=== PATIENT | female | born 1945 | race Caucasian/White ===

== ENCOUNTER → 2017-09-11 | Outpatient (CLI) | payer MEDICARE, OTHER ==
--- NOTE | 2017-09-11 09:13 | CT ---
EXAMINATION TYPE: CT chest w con DATE OF EXAM: 09/11/2017 COMPARISON: Report scanned from demonstrating nonspecific mediastinal adenopathy. No images av ailable for comparison. HISTORY: Dyspnea CT DLP: 894.50 mGycm. Automated Exposure Control for Dose Reduction was Utilized. TECHNIQUE: CT scan of the thorax is performed following with IV Contrast, patient injected with 100 ml mL of Isovue 300. FINDINGS: LUNGS: There is a spiculated noncalcified left superhilar mass blending with the mediastinum in the l eft upper lobe measured on soft tissue windows series 3 image 20 at 3.0 x 2.3 cm. This and adjacent a denopathy encase the left upper lobe segmental and left lower lobe segmental pulmonary arteries. Ther e is slight tethering of the interlobar fissure with focal pleural thickening on series 4 image 15 me asuring 4 mm in thickness. There is a 2 mm noncalcified pulmonary nodule in a subpleural location in the right lower lobe on ser ies 4 image 36 posteriorly. Minimal right basilar subsegmental atelectasis is noted. Nonspecific mild pleural thickening is seen along the right upper lobe anterolaterally measuring 2 mm in thickness on series 4 image 29. There is no associated calcification. Minimal left basilar subsegmental dependent atelectasis is also present. No honeycombing to suggest pulmonary fibrosis. No interstitial intralob ular septal thickening. No pleural effusion or pneumothorax. MEDIASTINUM: Dense mitral annular calcifications are seen with post CABG changes of the chest. Main p ulmonary artery is enlarged measuring 3.5 cm. Ascending thoracic aorta is within normal limits measur ing 3.0 cm. No pericardial effusion. Cardiac size is upper limits of normal. Addition to the left perihilar adenopathy intimately associated with the pulmonary mass there is aort icopulmonary window adenopathy measuring 1.1 cm in short axis, right paratracheal adenopathy measurin g 1.1 cm in short axis, and subcarinal adenopathy measuring 1.1 cm in short axis as well. No discrete supraclavicular adenopathy. No right hilar adenopathy. OTHER: Cholelithiasis is incidentally noted. There is dense atheromatous calcifications of the visual ized abdominal aorta and its branches. A small hiatal hernia is noted. Visualized bowel in the upper abdomen is nondilated. Mild multilevel degenerative changes of the thoracic spine are seen. No suspic ious osseous lesions. IMPRESSION: 1. Left suprahilar spiculated 3.0 x 2.3 cm mass blending into the mediastinum that should be consider ed neoplasm until proven otherwise with associated mediastinal adenopathy. No discrete supraclavicula r adenopathy or pleural effusion. 2. Right-sided 2 mm pulmonary nodule, a very low suspicion for neoplasm. 3. No suspicious osseous lesions. A Yellow level critical message alert has been initiated for Bhanu Phillip MD via the [facility] Critical Results System on 09/11/2017 9:10 AM. This message alert has been sent to Bhanu tellez MD via the preferences provided by the clinician for the receipt of Radiology Critical Findings. Message ID [id number].
== END | disposition home or self-care (01) ==
LOC: RADCTMAIN 07:19
PROVIDERS: ATTEND Internal Medicine Critical Care Medicine
DX: R91.1 Solitary pulmonary nodule (principal); J98.59 Other diseases of mediastinum, not elsewhere classified
CPT/HCPCS: 82565; 84520; 71260; 36415; Q9967

== ENCOUNTER 2017-10-05 09:30 | Day surgery (SDC) | payer MEDICARE ==
[2017-10-04 09:44] VITALS: BMI 42.9
[~2017-10-05 09:30] MED LIST: LACTATED RINGERS 1,000 ML IV SCH; Pre Op ABX Message 1 EACH MISC MISCELLANE ONE
[2017-10-05 10:04] VITALS: TEMP 97.8
[2017-10-05] MEDS ORDERED: LIDOCAINE 1% INJ 10MG/ML (20 ML MDV) ONE (11:02)
[2017-10-05] MEDS ORDERED: MIDAZOLAM 2 MG/2 ML VIAL ONE (11:02)
[2017-10-05] MEDS ORDERED: GLYCOPYRROLATE 0.2 MG/ML 2 ML VIAL ONE (11:02)
[2017-10-05] MEDS ORDERED: KETAMINE 10 MG/ML 20 ML VIAL ONE (11:02)
[2017-10-05] MEDS ORDERED: PROPOFOL 10 MG/ML 20 ML VIAL IV ONE (11:02)
[2017-10-05] MEDS ORDERED: LIDOCAINE 2% INJ 20 MG/ML INTRATRACH ONE (11:53)
--- NOTE | 2017-10-05 12:02 | P.PCN ---
Date of Procedure: 10/05/17 Preoperative Diagnosis: left upper lobe/hilar mass Postoperative Diagnosis: left upper lobe/ hilar mass Procedure(s) Performed: flexible bronchoscopy, TBNA of the right paratracheal LN, EBBX and brushing and BAL of the YADIEL Surgeon: Bhanu Phillip Suture Polisher #1: Magdalena Evans Estimated Blood Loss (ml): 100 Pathology: other Condition: stable Disposition: same day Operative Findings: This procedure was done under conscious sedation with anesthetic agents being administered by anesthesia the bedside. Patient was given a total of 170 mg of propofol. After achieving adequate sedation, the flexible bronchoscope was inserted to the right nostril and was advanced upper airway. Examination of the posterior oropharynx, larynx, epiglottis and vocal cords was done and all of the upper airway structures were within normal limits without any abnormalities noted. The epiglottis, vallecula, arytenoids and the vocal cords were all within normal limits. A total of 2 mL of 1% lidocaine was applied to the vocal cords and following in the flexible bronchoscope was advanced upper trachea and examination of the tracheal bronchial tree was done. There was moderate degree of tracheal bronchomalacia throughout the airway. The trachea was patent and aileen was sharp in the midline. Examination of the right side including the right mainstem bronchus, right upper lobe bronchus, right middle lobe and right lower lobe bronchus was within normal limits. Examination of the left occluded left mainstem bronchus was patent and within normal limits. Left lower lobe bronchus was patent. Left upper lobe orifice was identified. The lingular segment was patent and the left upper lobe segment was completely compressed with possibly some endobronchial involvement with malignancy. My visualization was extremely poor knowing that the patient had some blood oozing from the surface of the left upper lobe bronchitis that was triggered by the flexible bronchoscope while inspecting the left upper lobe. I was barely able to do transbronchial needle aspirate of the right paratracheal lymph node with a use in 19 gait cytology didn't and 2 passes were obtained. Following that the bronchoscope to the left upper lobe bronchus. I was unable to visualize segment accurately. I did endobronchial biopsies of the left upper lobe. I did also the endobronchial brushings and bronchial lavage of the left upper lobe was done were a total of 80 mL of fluid was infused and 25 severe blood gases was obtained. Unfortunately, I did not have a good look during the procedure. I suspected that is in the endobronchial component/tumor occupying an obstructing the apical segment of the left upper lobe. I was able to suction the bloody secretions from the airway and admitted of the procedure bleeding was stopped. I do not do any further manipulation due to concerns of ongoing bleed. Estimated blood loss is around 100 mL. The patient tolerated the procedure well. No hypoxemia during the procedure. The patient will monitor them recovered and the patient was discharged home once cleared by anesthesia. Mother the patient was on Plavix preoperatively and this was stopped at least 5 days prior to procedure. Nevertheless, this was quite a complicated procedure due to the ongoing bleeding was encountered from the left upper lobe.
[2017-10-05 12:08] VITALS: RESP 16
[2017-10-05 13:11] VITALS: BP 123/67
[2017-10-05 13:25] VITALS: PULSE 56
== END 2017-10-05 13:45 | disposition home or self-care (01) ==
LOC: ORWHC2ENDO 09:30
PROVIDERS: ATTEND Internal Medicine Critical Care Medicine
DX: C34.12 Malignant neoplasm of upper lobe, left bronchus or lung (principal); J39.8 Other specified diseases of upper respiratory tract; J98.09 Other diseases of bronchus, not elsewhere classified; J44.9 Chronic obstructive pulmonary disease, unspecified; E66.9 Obesity, unspecified; Z68.41 Body mass index [BMI] 40.0-44.9, adult; I10 Essential (primary) hypertension; E03.9 Hypothyroidism, unspecified; I25.10 Atherosclerotic heart disease of native coronary artery without angina pectoris; E55.9 Vitamin D deficiency, unspecified; E78.5 Hyperlipidemia, unspecified; M19.90 Unspecified osteoarthritis, unspecified site; I25.2 Old myocardial infarction; Z95.1 Presence of aortocoronary bypass graft; Z95.5 Presence of coronary angioplasty implant and graft; Z79.02 Long term (current) use of antithrombotics/antiplatelets; Z79.82 Long term (current) use of aspirin; Z79.890 Hormone replacement therapy; Z79.51 Long term (current) use of inhaled steroids; Z79.899 Other long term (current) drug therapy; Z88.0 Allergy status to penicillin; Z87.891 Personal history of nicotine dependence
CPT/HCPCS: 88104; 88108; 88305; 88173; 88313; 88342; 88341; 31629; 31625; 31623; 31624; J2001 ×2; J2250; J2704; 31633

== ENCOUNTER → 2017-10-30 | Outpatient (CLI) | payer MEDICARE | END | disposition home or self-care (01) | LOC: LABWHC1 12:23 | PROVIDERS: ATTEND Radiology Radiation Oncology | DX: C34.12 Malignant neoplasm of upper lobe, left bronchus or lung (principal) | CPT/HCPCS: 36415; 82565 ==

== ENCOUNTER → 2017-10-31 | Outpatient (CLI) | payer MEDICARE ==
--- NOTE | 2017-10-31 11:21 | MR ---
EXAMINATION TYPE: MR brain wo/w con DATE OF EXAM: 10/31/2017 COMPARISON: NONE HISTORY: Lung cancer, mets TECHNIQUE: Multiplanar, multisequence images of the brain and brainstem is performed without and with IV contras t, utilizing 11.5 mL intravenous Gadavist . FINDINGS: Diffusion weighted images demonstrate no evidence of a recent infarct or other diffusion ab normality. There is no extra-axial fluid collection. There are confluent and scattered hyperintensi ties within the periventricular, subcortical, and deep white matter on inversion recovery and T2-weig hted sequences. The ventricular system and cisternal spaces are normal in size and appearance. The b rain volume is age appropriate. Foci of increased signal on inversion recovery, postcontrast images in the right frontal calvarium sh ows intermediate to high signal on T2-weighted sequences, axial image 19 and also at the convexity on the right. Midline structures demonstrate normal morphology. The craniocervical junction appears within normal limits. Post contrast images demonstrate no abnormal enhancement. The dural venous sinuses appear pa tent. The visualized sinuses are clear and the globes are intact. Minimal inflammatory change noted i n the left mastoid air cells. IMPRESSION: Nonspecific white matter demyelination may be related to chronic small vessel ischemia. A ge-related atrophy. Indeterminate focus of hyperintensity in the right frontal calvarium may represen t a small hemangioma, consider bone scan as indicated.
== END | disposition home or self-care (01) ==
LOC: RADMRIMAIN 08:23
PROVIDERS: ATTEND Radiology Radiation Oncology
DX: C34.12 Malignant neoplasm of upper lobe, left bronchus or lung (principal); G37.9 Demyelinating disease of central nervous system, unspecified; G31.9 Degenerative disease of nervous system, unspecified
CPT/HCPCS: 70553; A9581

== ENCOUNTER → 2017-11-04 | Outpatient (CLI) | payer MEDICARE ==
--- NOTE | 2017-11-05 12:22 | PE ---
Nuclear medicine PET/CT HISTORY: Lung carcinoma, initial 12.2 mCi F-18 FDG was given to the patient intravenously in delayed scanning was performed from the s kull base to the mid thighs. Localization and attenuation correction CT scan was also performed. Correlation to chest CT 09/11/2017. FINDINGS: Neck and chest: There is no abnormalities seen within the neck. Patient is post median ster notomy. Aortic calcifications, coronary artery calcifications as well as probable mitral annular calc ifications are noted incidentally. There is probable hiatal hernia. Defibrillator leads are present a nd noted incidentally. There are shotty nodes within the mediastinum, borderline enlarged node present within the retrocaval pretracheal mediastinum without significant uptake, aorticopulmonary window node is enlarged. There is a left hilar mass present measuring approximately 3.9 cm, there is associated hypermetabolic uptak e present, SUV 9.1. Abdomen pelvis: No suspicious adrenal mass or hypermetabolic uptake. No evident liver mass. No retrop eritoneal adenopathy. Osseous structures are unremarkable, no associated hypermetabolic uptake. IMPRESSION: Hypermetabolic uptake correlating to patient's left upper lobe lung mass, mediastinal nod es as described.
== END | disposition home or self-care (01) ==
LOC: RADPETMAIN 07:58
PROVIDERS: ATTEND Internal Medicine Hematology & Oncology
DX: C34.90 Malignant neoplasm of unspecified part of unspecified bronchus or lung (principal)
CPT/HCPCS: 78815; A9552

== ENCOUNTER → 2018-01-27 | Outpatient (CLI) | payer MEDICARE ==
--- NOTE | 2018-01-29 07:12 | PE ---
EXAMINATION TYPE: PET CT fusion skull to thigh DATE OF EXAM: 01/27/2018 COMPARISON: Prior PET/CT November 04, [address] September 11, 2017. HISTORY: Left-sided lung cancer progress study after completing chemotherapy January 01 and completing radiation treatment January 03. TECHNIQUE: Following the intravenous administration of 12.33 mCi of F-18 FDG, whole body images are performed from the skull base to the midthigh. Images are reviewed on the computer in the coronal, a xial, and sagittal planes. Reconstructed rotating images are created on independent workstation and reviewed on the computer. A noncontrast CT is performed in conjunction with the PET scan. SCAN: Subsequent Scan FINDINGS: SKULL BASE AND NECK: No suspicious new hypermetabolic uptake is present. CHEST, MEDIASTINUM, AND HILAR REGION: There is slight interval improvement in left suprahilar hyperme tabolic focus both in size and degree of abnormal hypermetabolic uptake, it is difficult to accuratel y measure due to volume averaging from adjacent left pulmonary artery which it abuts, it measures rou ghly 12 x 11 mm current study, max SUV is 5.43 on axial image 84. Max SUV noted 9.1 on prior report. No new areas of abnormal hypermetabolic uptake are present. ABDOMEN AND PELVIS: No new areas of suspicious hypermetabolic uptake is present. No suspicious adrena l masses noted. OSSEOUS STRUCTURES: No new areas of suspicious hypermetabolic uptake are seen. OTHER CT: Moderate to severe right carotid bulb calcified plaque is present. There is mild left-sided carotid calcified plaque. Post CABG changes with mediastinal clips and sternal wires is redemonstrated. Cardiomegaly is again s een. Mitral annular calcifications are redemonstrated. Calcified subserosal fibroid is present axial image 212. There is moderate to severe calcified plaque of the abdominal aorta extending into branch vessels. Sigmoid colonic diverticulosis is present. There is slight grade 1 anterolisthesis of L4 on L5. Multilevel facet arthropathy in the lower lumbar spine. There is vacuum disc phenomenon and disc space narrowing in the mid lumbar spine. Spine is st raightened with multilevel spurring. IMPRESSION: Positive treatment response with diminished size and abnormal hypermetabolic uptake in th e left suprahilar nodule abutting the mediastinum. No new areas of abnormal hypermetabolic uptake are present. EORTC response criteria: Partial Metabolic Response. Decrease in MaxSUV = 25% Primary tumor response WHO category: NM - At least 30% decrease in longest recordable dimension of tu mor
== END | disposition home or self-care (01) ==
LOC: RADPETMAIN 07:57
PROVIDERS: ATTEND Internal Medicine Hematology & Oncology
DX: C34.12 Malignant neoplasm of upper lobe, left bronchus or lung (principal)
CPT/HCPCS: 78815; A9552

== ENCOUNTER 2018-03-22 07:27 | Inpatient (IN) | payer MEDICARE ==
[2018-03-22] MEDS ORDERED: SODIUM CHLORIDE 0.9% 1,000 ML IV STA ×3 (07:35→09:07)
[2018-03-22] MEDS ORDERED: IPRATROPIUM-ALBUTEROL 3 ML NEB INHALATION STA (07:35)
--- NOTE | 2018-03-22 07:48 | ED ---
Weakness HPI - General Stated complaint: WEAKNESS, Ca PATIENT Time Seen by Provider: 03/22/18 07:35 Source: patient, family, EMS, RN notes reviewed Mode of arrival: EMS - History of Present Illness Initial comments: This is a 72-year-old female with a history of non-small cell lung cancer a former smoker who has gotten chemo and radiation with the last round being in December of this year and who now gets immunotherapy for which she was actually due today who was brought in by EMS because of progressive generalized weakness dizziness she also states she's thirsty all the time. She was found by EMS have a glucose of 49 though she is not diabetic. She was noted have some PACs and PVCs on the monitor. She has a nausea vomiting she does complain of shortness of breath and cough with brown colored phlegm. MD Complaint: generalized weakness - Related Data Home Medications Medication Instructions Recorded Confirmed Aspirin 81 mg PO DAILY 10/04/17 03/22/18 Clopidogrel Bisulfate [Plavix] 75 mg PO DAILY 10/04/17 03/22/18 Furosemide [Lasix] 20 mg PO DAILY PRN 10/04/17 03/22/18 Levothyroxine Sodium [Synthroid] 175 mcg PO DAILY 10/04/17 03/22/18 Losartan [Cozaar] 50 mg PO DAILY 10/04/17 03/22/18 Metoprolol Tartrate 25 mg PO BID 10/04/17 03/22/18 Allergies Allergy/AdvReac Type Severity Reaction Status Date / Time Penicillins Allergy Rash/Hives Verified 03/22/18 07:57 Review of Systems ROS Statement: Those systems with pertinent positive or pertinent negative responses have been documented in the HPI. ROS Other: All systems not noted in ROS Statement are negative. Past Medical History Past Medical History: Coronary Artery Disease (CAD), Hyperlipidemia, Hypertension, Myocardial Infarction (non Q-wave), Osteoarthritis (OA), Thyroid Disorder Additional Past Medical History / Comment(s): CHILDHOOD ASTHMA Last Myocardial Infarction Date:: 2005 History of Any Multi-Drug Resistant Organisms: None Reported Past Surgical History: Coronary Bypass/CABG, Heart Catheterization, Heart Catheterization With Stent Additional Past Surgical History / Comment(s): ENDARTERECTOMY-LEFT SIDE Past Anesthesia/Blood Transfusion Reactions: Motion Sickness Date of Last Stent Placement:: 2005 Smoking Status: Former smoker - Past Family History Father Family Medical History: Cancer General Exam - General Exam Comments Initial Comments: This is a well-developed well-nourished awake alert oriented 3 female Limitations: no limitations General appearance: alert, lethargic (Slightly lethargic) Head exam: Present: atraumatic, normocephalic, other (She demonstrates alopecia) Eye exam: Present: normal appearance, PERRL, EOMI. Absent: scleral icterus, conjunctival injection, periorbital swelling ENT exam: Present: mucous membranes dry Neck exam: Present: normal inspection. Absent: tenderness, meningismus, lymphadenopathy Respiratory exam: Present: decreased breath sounds Cardiovascular Exam: Present: normal rhythm, tachycardia GI/Abdominal exam: Present: soft, normal bowel sounds. Absent: distended, tenderness, guarding, rebound, rigid Extremities exam: Present: normal inspection, full ROM, normal capillary refill. Absent: tenderness, pedal edema, joint swelling, calf tenderness Back exam: Present: normal inspection Neurological exam: Present: alert, oriented X3, CN II-XII intact Psychiatric exam: Present: normal affect, normal mood Skin exam: Present: warm, dry, intact, normal color. Absent: rash Course Vital Signs 03/22/18 03/22/18 03/22/18 08:12 08:18 08:22 Temperature 97.8 F Pulse Rate 125 H 101 H 123 H Respiratory 22 Rate Blood Pressure 114/65 O2 Sat by Pulse 99 Oximetry - Reevaluation(s) Reevaluation #1: 03/22/18 10:16 Reevaluation patient reveals no change he still tachycardic it appears be A. fib RVR. Markedly elevated blood sugar. Dehydration she saw her remains awake alert though somewhat lethargic. Reevaluation #2: 03/22/18 10:17 Review of old EKG reveals the A. fib is new an EKG dated 08/13/10 showed a normal sinus rhythm with a rate of 77 appear of 01 78 QRS duration 90 QT since QTC 46/ 459 LVH was noted Reevaluation #3: 03/22/18 10:22 I did discuss findings with the patient and family members. Additionally I did discuss case with cardiology and pulmonary medicine. Oncology will be consulted. EKG Findings - EKG Results: EKG: interpreted by ERMD (Neutrophils rate 120 Ventricular response LVH nonspecific ST configuration QRS 108 QT since QTC 362/511) Medical Decision Making - Medical Decision Making Patient was evaluated by cardiology in the emergency department did discuss case with the admitting physician additionally the patient will be admitted to ICU. Dr. Phillip is consulted. - Lab Data Result diagrams: 03/22/18 08:10 03/22/18 08:10 Lab Results 03/22/18 03/22/18 03/22/18 Range/Units 08:10 08:10 08:10 WBC 11.7 H (3.8-10.6) k/uL RBC 5.12 (3.80-5.40) m/uL Hgb 16.7 H (11.4-16.0) gm/dL Hct 56.3 H (34.0-46.0) % MCV 110.0 H (80.0-100.0) fL MCH 32.6 (25.0-35.0) pg MCHC 29.7 L (31.0-37.0) g/dL RDW 13.1 (11.5-15.5) % Plt Count 187 (150-450) k/uL Neutrophils % 85 % Lymphocytes % 9 % Monocytes % 4 % Eosinophils % 1 % Basophils % 1 % Neutrophils # 10.0 H (1.3-7.7) k/uL Lymphocytes # 1.0 (1.0-4.8) k/uL Monocytes # 0.4 (0-1.0) k/uL Eosinophils # 0.1 (0-0.7) k/uL Basophils # 0.1 (0-0.2) k/uL Manual Slide Review Performed Toxic Granulation Present Hypochromasia Marked Macrocytosis Marked PT (9.0-12.0) sec INR (<1.2) APTT (22.0-30.0) sec D-Dimer (<0.60) mg/L FEU Sodium 141 (137-145) mmol/L Potassium 5.2 H (3.5-5.1) mmol/L Chloride 103 (98-107) mmol/L Carbon Dioxide <5 L* (22-30) mmol/L Anion Gap mmol/L BUN 35 H (7-17) mg/dL Creatinine 1.97 H (0.52-1.04) mg/dL Est GFR (CKD-EPI)AfAm 29 (>60 ml/min/1.73 sqM) Est GFR (CKD-EPI)NonAf 25 (>60 ml/min/1.73 sqM) Glucose 851 H* (74-99) mg/dL POC Glucose (mg/dL) (75-99) mg/dL POC Glu Air Drier ID Calcium 11.0 H (8.4-10.2) mg/dL Magnesium 2.3 (1.6-2.3) mg/dL Total Bilirubin 1.0 (0.2-1.3) mg/dL AST 24 (14-36) U/L ALT 13 (9-52) U/L Alkaline Phosphatase 94 (38-126) U/L Total Creatine Kinase 61 (30-135) U/L CK-MB (CK-2) 3.5 H (0.0-2.4) ng/mL CK-MB (CK-2) Rel Index 5.7 Troponin I 0.246 H* (0.000-0.034) ng/mL NT-Pro-B Natriuret Pep pg/mL Total Protein 7.6 (6.3-8.2) g/dL Albumin 4.4 (3.5-5.0) g/dL Urine Color Urine Appearance (Clear) Urine pH (5.0-8.0) Ur Specific [place] (1.001-1.035) Urine Protein (Negative) Urine Glucose (UA) (Negative) Urine Ketones (Negative) Urine Blood (Negative) Urine Nitrite (Negative) Urine Bilirubin (Negative) Urine Urobilinogen (<2.0) mg/dL Ur Leukocyte Esterase (Negative) Urine RBC (0-5) /hpf Urine WBC (0-5) /hpf Ur Squamous Epith Cells (0-4) /hpf Amorphous Sediment (None) /hpf Urine Mucus (None) /hpf Acetone, Qual (Negative) 03/22/18 03/22/18 03/22/18 Range/Units 08:10 08:10 08:10 WBC (3.8-10.6) k/uL RBC (3.80-5.40) m/uL Hgb (11.4-16.0) gm/dL Hct (34.0-46.0) % MCV (80.0-100.0) fL MCH (25.0-35.0) pg MCHC (31.0-37.0) g/dL RDW (11.5-15.5) % Plt Count (150-450) k/uL Neutrophils % % Lymphocytes % % Monocytes % % Eosinophils % % Basophils % % Neutrophils # (1.3-7.7) k/uL Lymphocytes # (1.0-4.8) k/uL Monocytes # (0-1.0) k/uL Eosinophils # (0-0.7) k/uL Basophils # (0-0.2) k/uL Manual Slide Review Toxic Granulation Hypochromasia Macrocytosis PT 10.7 (9.0-12.0) sec INR 1.1 (<1.2) APTT 24.4 (22.0-30.0) sec D-Dimer (<0.60) mg/L FEU Sodium (137-145) mmol/L Potassium (3.5-5.1) mmol/L Chloride (98-107) mmol/L Carbon Dioxide (22-30) mmol/L Anion Gap mmol/L BUN (7-17) mg/dL Creatinine (0.52-1.04) mg/dL Est GFR (CKD-EPI)AfAm (>60 ml/min/1.73 sqM) Est GFR (CKD-EPI)NonAf (>60 ml/min/1.73 sqM) Glucose (74-99) mg/dL POC Glucose (mg/dL) (75-99) mg/dL POC Glu Air Drier ID Calcium (8.4-10.2) mg/dL Magnesium (1.6-2.3) mg/dL Total Bilirubin (0.2-1.3) mg/dL AST (14-36) U/L ALT (9-52) U/L Alkaline Phosphatase (38-126) U/L Total Creatine Kinase (30-135) U/L CK-MB (CK-2) (0.0-2.4) ng/mL CK-MB (CK-2) Rel Index Troponin I (0.000-0.034) ng/mL NT-Pro-B Natriuret Pep 3720 pg/mL Total Protein (6.3-8.2) g/dL Albumin (3.5-5.0) g/dL Urine Color Yellow Urine Appearance Turbid H (Clear) Urine pH 5.5 (5.0-8.0) Ur Specific [place] 1.012 (1.001-1.035) Urine Protein 2+ H (Negative) Urine Glucose (UA) 4+ H (Negative) Urine Ketones 2+ H (Negative) Urine Blood Moderate H (Negative) Urine Nitrite Negative (Negative) Urine Bilirubin Negative (Negative) Urine Urobilinogen <2.0 (<2.0) mg/dL Ur Leukocyte Esterase Negative (Negative) Urine RBC 4 (0-5) /hpf Urine WBC 3 (0-5) /hpf Ur Squamous Epith Cells 10 H (0-4) /hpf Amorphous Sediment Few H (None) /hpf Urine Mucus Occasional H (None) /hpf Acetone, Qual (Negative) 03/22/18 03/22/18 03/22/18 Range/Units 08:10 08:10 08:54 WBC (3.8-10.6) k/uL RBC (3.80-5.40) m/uL Hgb (11.4-16.0) gm/dL Hct (34.0-46.0) % MCV (80.0-100.0) fL MCH (25.0-35.0) pg MCHC (31.0-37.0) g/dL RDW (11.5-15.5) % Plt Count (150-450) k/uL Neutrophils % % Lymphocytes % % Monocytes % % Eosinophils % % Basophils % % Neutrophils # (1.3-7.7) k/uL Lymphocytes # (1.0-4.8) k/uL Monocytes # (0-1.0) k/uL Eosinophils # (0-0.7) k/uL Basophils # (0-0.2) k/uL Manual Slide Review Toxic Granulation Hypochromasia Macrocytosis PT (9.0-12.0) sec INR (<1.2) APTT (22.0-30.0) sec D-Dimer 7.40 H (<0.60) mg/L FEU Sodium (137-145) mmol/L Potassium (3.5-5.1) mmol/L Chloride (98-107) mmol/L Carbon Dioxide (22-30) mmol/L Anion Gap mmol/L BUN (7-17) mg/dL Creatinine (0.52-1.04) mg/dL Est GFR (CKD-EPI)AfAm (>60 ml/min/1.73 sqM) Est GFR (CKD-EPI)NonAf (>60 ml/min/1.73 sqM) Glucose (74-99) mg/dL POC Glucose (mg/dL) >600 H (75-99) mg/dL POC Glu Air Drier Emilia Toure Calcium (8.4-10.2) mg/dL Magnesium (1.6-2.3) mg/dL Total Bilirubin (0.2-1.3) mg/dL AST (14-36) U/L ALT (9-52) U/L Alkaline Phosphatase (38-126) U/L Total Creatine Kinase (30-135) U/L CK-MB (CK-2) (0.0-2.4) ng/mL CK-MB (CK-2) Rel Index Troponin I (0.000-0.034) ng/mL NT-Pro-B Natriuret Pep pg/mL Total Protein (6.3-8.2) g/dL Albumin (3.5-5.0) g/dL Urine Color Urine Appearance (Clear) Urine pH (5.0-8.0) Ur Specific [place] (1.001-1.035) Urine Protein (Negative) Urine Glucose (UA) (Negative) Urine Ketones (Negative) Urine Blood (Negative) Urine Nitrite (Negative) Urine Bilirubin (Negative) Urine Urobilinogen (<2.0) mg/dL Ur Leukocyte Esterase (Negative) Urine RBC (0-5) /hpf Urine WBC (0-5) /hpf Ur Squamous Epith Cells (0-4) /hpf Amorphous Sediment (None) /hpf Urine Mucus (None) /hpf Acetone, Qual Positive (Negative) - Radiology Data Radiology results: report reviewed (EKG was reviewed that show evidence of pulmonary vascular congestion no overt failure noted), image reviewed Critical Care Time Critical Care Time: Yes Critical Care Time: 45 minutes of critical care time which includes initial presentation and discussed with paramedics upon arrival as well as family members history physical labs x-rays multiple reevaluation of the patient as well as to responsive therapy. Discussion with the admitting physician cardiology and with pulmonary medicine. Documentation the above review of old charting was available. They. Dilation. Initial orders documentation again of everything. Disposition Clinical Impression: DKA (diabetic ketoacidoses), Rapid atrial fibrillation, Renal insufficiency syndrome, Lung cancer, CHF (congestive heart failure), Elevated troponin, Elevated d-dimer Disposition: ADMITTED IP TO THIS HOSP Condition: Serious Referrals: Rosemary Bagley MD [Primary Care Provider] - 1-2 days
[2018-03-22 08:25] LABS: Basophils # (A) 0.1 k/uL (0-0.2); Basophils % (A) 1 %; Eosinophils # (A) 0.1 k/uL (0-0.7); Eosinophils % (A) 1 %; HGB 16.7 gm/dL (11.4-16.0); Hypochromasia Marked; Lymphocytes % (A) 9 %; MCH 32.6 pg (25.0-35.0); MCHC 29.7 g/dL (31.0-37.0); Macrocytosis Marked; Mean Platelet Volume 9.3; Monocytes # (A) 0.4 k/uL (0-1.0); Monocytes % (A) 4 %; Neutrophils % (A) 85 %; Platelet Count 187 k/uL (150-450); RBC 5.12 m/uL (3.80-5.40); RDW 13.1 % (11.5-15.5); WBC 11.7 k/uL (3.8-10.6)
[2018-03-22 08:38] LABS: ALT 13 U/L (9-52); AST 24 U/L (14-36); Albumin 4.4 g/dL (3.5-5.0); Alkaline Phosphatase 94 U/L (38-126); Blood Urea Nitrogen 35 mg/dL (7-17); Chloride 103 mmol/L (98-107); Magnesium 2.3 mg/dL (1.6-2.3); Potassium 5.2 mmol/L (3.5-5.1); Sodium 141 mmol/L (137-145); Total Protein 7.6 g/dL (6.3-8.2)
[2018-03-22 08:39] LABS: INR 1.1 (<1.2); Partial Thromboplastin Time 24.4 sec (22.0-30.0); Prothrombin Time 10.7 sec (9.0-12.0)
[2018-03-22 08:42] LABS: HCT 56.3 % (34.0-46.0)
[2018-03-22 08:47] LABS: Appearance,Urine Turbid (Clear); Color,Urine Yellow; PH, Urine 5.5 (5.0-8.0); Protein,Urine 2+ (Negative); Specific Gravity,Urine 1.012 (1.001-1.035)
[2018-03-22 08:48] LABS: Amorphous Sediment,Urine Few /hpf; Bilirubin,Urine Negative (Negative); Blood,Urine Moderate (Negative); Glucose,Urine (UA) 4+ (Negative); Leukocyte Esterase,Urine Negative (Negative); Mucus,Urine Occasional /hpf; Nitrite,Urine Negative (Negative); RBC,Urine 4 /hpf (0-5); Squamous Epithelial Cell,Urine 10 /hpf (0-4); Urobilinogen,Urine <2.0 mg/dL (<2.0); WBC,Urine 3 /hpf (0-5)
[2018-03-22 08:50] LABS: Ketones,Urine 2+ (Negative)
[2018-03-22 09:02] LABS: Toxic Granulation Present
[2018-03-22 09:03] LABS: Creatine Kinase MB 3.5 ng/mL (0.0-2.4)
[2018-03-22 09:04] LABS: Glucose 851 mg/dL (74-99)
[2018-03-22 09:05] LABS: Carbon Dioxide <5 mmol/L (22-30)
[2018-03-22 09:06] LABS: Glucose,Whole Blood >600 mg/dL (75-99)
[2018-03-22 09:07] LABS: Troponin I 0.246 ng/mL (0.000-0.034)
[2018-03-22] MEDS ORDERED: INSULIN REGULAR 100 UNIT/ML VIAL IV ONE (09:07)
--- NOTE | 2018-03-22 09:18 | XR ---
EXAMINATION TYPE: XR chest 2V DATE OF EXAM: 03/22/2018 COMPARISON: 08/13/10 HISTORY: Shortness of breath TECHNIQUE: Frontal and lateral views of the chest are obtained. FINDINGS: Scattered senescent parenchymal changes noted. No evidence for infiltrate. No evidence for atelectasis. Heart size is stable. Pulmonary venous congestion without overt failure. Mediastinal structures are stable and grossly unremarkable. No evidence for hilar prominence. Degenerative changes dorsal spine. IMPRESSION: 1. Pulmonary venous congestion without overt failure.
[2018-03-22] MEDS ORDERED: DILTIAZEM DRIP BOLUS FROM BAG 1 MG SOLN IV ONE (10:06)
[2018-03-22] MEDS ORDERED: Magnesium Replacement Protocol 1 EACH MISC MISCELLANE PRN ×2 (10:07→14:41)
[2018-03-22] MEDS ORDERED: Potassium Replacement Protocol 1 EACH MISC MISCELLANE PRN ×2 (10:07→21:23)
[2018-03-22] MEDS ORDERED: INSULIN REGULAR BOLUS (FROM DRIP BAG) IV ONE (10:07)
--- NOTE | 2018-03-22 10:09 | P.CRDCN ---
History of Present Illness Consult date: 03/22/18 Requesting physician: Sharonda Tran Consult reason: atrial fibrillation Chief complaint: Dizziness and nausea History of present illness: This is a pleasant 72-year-old female, who is somewhat confused this morning, seen in the emergency room, history obtained from the daughter who is at bedside. Patient has a known history of coronary artery disease with prior bypass surgery in 1999 for over 2004, history of hypertension, hyperlipidemia, hypothyroidism, prior nicotine dependence. Patient also has diagnosis of a lung cancer for which she has undergone chemotherapy and radiation. According to the daughter she had finished her course of that treatment and was started on immunotherapy, she had just received her third dose of this. Patient was complaining this morning of some symptoms of dizziness and according to the daughter over the past couple days has felt queasy and mildly nauseated. She is confused this morning. Overall otherwise patient has been doing well, no complaints of chest pain, no palpitations, no difficulty in breathing. On EMS arrival, blood sugars were greater than 400. Patient has no history of prior diabetes. On arrival here white blood cell count 11.7, hemoglobin 16.7, platelet count 187. Sodium 141, potassium 5.2, chloride 103, carbon dioxide less than 5, anion gap unable to calculate. BUN 35, creatinine 1.9. Glucose 851, POC glucose greater than 600, calcium 11, magnesium 2.3. BNP 3720, troponin 0.24. Serum acetone positive. Positive ketones in the urine. EKG on arrival here showed atrial fibrillation with a rapid ventricular response, this is also new for the patient. At the time of my examination, daughter is at bedside, patient is confused, lying comfortably in bed overall. Past Medical History Past Medical History: Coronary Artery Disease (CAD), Hyperlipidemia, Hypertension, Myocardial Infarction (non Q-wave), Osteoarthritis (OA), Thyroid Disorder Additional Past Medical History / Comment(s): CHILDHOOD ASTHMA Last Myocardial Infarction Date:: 2005 History of Any Multi-Drug Resistant Organisms: None Reported Past Surgical History: Coronary Bypass/CABG, Heart Catheterization, Heart Catheterization With Stent Additional Past Surgical History / Comment(s): ENDARTERECTOMY-LEFT SIDE Past Anesthesia/Blood Transfusion Reactions: Motion Sickness Date of Last Stent Placement:: 2005 Smoking Status: Former smoker - Past Family History Father Family Medical History: Cancer Medications and Allergies Home Medications Medication Instructions Recorded Confirmed Type Aspirin 81 mg PO DAILY 10/04/17 03/22/18 History Clopidogrel Bisulfate [Plavix] 75 mg PO DAILY 10/04/17 03/22/18 History Furosemide [Lasix] 20 mg PO DAILY PRN 10/04/17 03/22/18 History Levothyroxine Sodium [Synthroid] 175 mcg PO DAILY 10/04/17 03/22/18 History Losartan [Cozaar] 50 mg PO DAILY 10/04/17 03/22/18 History Metoprolol Tartrate 25 mg PO BID 10/04/17 03/22/18 History Allergies Allergy/AdvReac Type Severity Reaction Status Date / Time Penicillins Allergy Rash/Hives Verified 03/22/18 07:57 Physical Exam Vitals: Vital Signs Temp Pulse Resp BP Pulse Ox 03/22/18 08:22 123 H 03/22/18 08:18 97.8 F 101 H 22 114/65 99 03/22/18 08:12 125 H Intake and Output 03/21/18 03/22/18 03/22/18 22:59 06:59 14:59 Other: Weight 108.862 kg PHYSICAL EXAMINATION: GENERAL: 72-year-old female, confused, in no acute distress at the time of my examination HEENT: Head is atraumatic, normocephalic. Pupils equal, round. Sclera anicteric. Conjunctiva are clear. Mucous membranes of the mouth are moist. Neck is supple. There is no elevated jugular venous pressure. No carotid bruit is heard. HEART EXAMINATION: Heart S1 and S2 irregularly irregular a systolic murmur is heard. CHEST EXAMINATION: Lungs are clear with mild nausea the bases. ABDOMEN: Soft, obese, nontender. Bowel sounds are heard. No organomegaly noted. EXTREMITIES: 2+ peripheral pulses with trace evidence of peripheral edema and no calf tenderness noted. NEUROLOGIC [patient is awake, confused. Results 03/22/18 08:10 03/22/18 08:10 Cardiac Enzymes 03/22/18 03/22/18 Range/Units 08:10 08:10 AST 24 (14-36) U/L CK-MB (CK-2) 3.5 H (0.0-2.4) ng/mL Troponin I 0.246 H* (0.000-0.034) ng/mL Coagulation 03/22/18 Range/Units 08:10 PT 10.7 (9.0-12.0) sec APTT 24.4 (22.0-30.0) sec CBC 03/22/18 Range/Units 08:10 WBC 11.7 H (3.8-10.6) k/uL RBC 5.12 (3.80-5.40) m/uL Hgb 16.7 H (11.4-16.0) gm/dL Hct 56.3 H (34.0-46.0) % Plt Count 187 (150-450) k/uL Comprehensive Metabolic Panel 03/22/18 Range/Units 08:10 Sodium 141 (137-145) mmol/L Potassium 5.2 H (3.5-5.1) mmol/L Chloride 103 (98-107) mmol/L Carbon Dioxide <5 L* (22-30) mmol/L BUN 35 H (7-17) mg/dL Creatinine 1.97 H (0.52-1.04) mg/dL Glucose 851 H* (74-99) mg/dL Calcium 11.0 H (8.4-10.2) mg/dL AST 24 (14-36) U/L ALT 13 (9-52) U/L Alkaline Phosphatase 94 (38-126) U/L Total Protein 7.6 (6.3-8.2) g/dL Albumin 4.4 (3.5-5.0) g/dL Current Medications Generic Name Dose Route Start Last Admin Trade Name Freq PRN Reason Stop Dose Admin Sodium Chloride 1,000 mls @ 100 mls/hr 03/22/18 07:35 03/22/18 08:27 Saline 0.9% IV 03/22/18 17:34 100 mls/hr .Q10H STA Administration Sodium Chloride 1,000 mls @ 999 mls/hr 03/22/18 09:07 03/22/18 09:21 Saline 0.9% IV 03/22/18 10:07 999 mls/hr .Q1H1M STA Administration Intake and Output 03/21/18 03/22/18 03/22/18 22:59 06:59 14:59 Other: Weight 108.862 kg Patient Weight 03/23/18 06:59 Weight 108.862 kg 03/22/18 08:10 11/15/18 08:10 EKG Interpretations (text) EKG shows atrial fibrillation with rapid ventricular response, ST-T wave changes noted in the inferior lateral leads Assessment and Plan Plan: Assessment and plan #1 DKA #2 atrial fibrillation with rapid ventricular response, appears to be of new onset. #3 hypertension #4 hyperlipidemia #5 known history of coronary artery disease with prior bypass surgery in 2003 2004 #6 small cell lung CA with prior chemotherapy and radiation, recently initiated on immunotherapy #7 abnormal troponin, likely secondary to DKA Plan We will obtain a stat echocardiogram with Doppler study, check TSH level. Start the patient on IV Cardizem for more optimal rate control. We will also discontinue the aspirin and start the patient on xarelto 15 mg along with the Plavix. Patient will be admitted to the intensive care unit, further recommendations to follow. DNP note has been reviewed, I agree with a documented findings and plan of care. Patient was seen and examined.
[2018-03-22] MEDS ORDERED: FUROSEMIDE 10 MG/ML 4 ML VIAL IV STA (10:33)
[2018-03-22] MEDS: DILTIAZEM 50 MG in SODIUM CHLORIDE 0.9% 40 ML IV SCH ×2 (11:33→15:02)
[2018-03-22] MEDS: INSULIN REGULAR 100 UNIT in SODIUM CHLORIDE 0.9% 100 ML IV SCH ×2 (11:54→18:07)
[2018-03-22 12:13] LABS: Glucose,Whole Blood >600 mg/dL (75-99)
--- NOTE | 2018-03-22 12:25 | ECHOF ---
Referral Reason:assess lvf MEASUREMENTS -------- HEIGHT: 162.6 cm WEIGHT: 108.9 kg BP: 100/38 IVSd: 1.3 cm (0.6 - 1.1) LVIDd: 4.4 cm (3.9 - 5.3) LVPWd: 1.3 cm (0.6 - 1.1) IVSs: 1.5 cm LVIDs: 3.5 cm LVPWs: 1.5 cm LAESV Index (A-L): 40.95 ml/m Ao Diam: 2.3 cm (2.0 - 3.7) AV Cusp: 1.5 cm (1.5 - 2.6) LA Diam: 3.4 cm (2.7 - 3.8) MV E Kyree: 1.32 m/s MV DecT: 183 ms MV A Kyree: 0.44 m/s MV E/A Ratio: 2.96 AR PHT: 386 ms RAP: 5.00 mmHg RVSP: 14.49 mmHg FINDINGS -------- Sinus rhythm. This was a technically adequate study. The left ventricular size is normal. There is mild concentric left ventricular hypertrophy. There is moderate global hypokinesis of LV . Overall left ventricular systolic function is moderate-anika rely impaired with, an EF between 30 - 35 %. The RV was not well visualized. LA is severely dilated >40 ml/m2 RA appears enlarged. There is mild to moderate aortic valve sclerosis. There is moderate aortic regurgitation. There i s no evidence of aortic stenosis. The mitral valve leaflets are mildly thickened. Mild mitral annular calcification present. Mild m itral regurgitation is present. Trace tricuspid regurgitation present. Right ventricular systolic pressure is normal at < 35 mmHg. There is no evidence of pulmonary hypertension. The pulmonic valve was not well visualized. The aortic root size is normal. Normal inferior vena cava with normal inspiratory collapse consistent with estimated right atrial pre ssure of 5 mmHg. There is no pericardial effusion. CONCLUSIONS -------- 1. Sinus rhythm. 2. This was a technically adequate study. 3. The left ventricular size is normal. 4. There is mild concentric left ventricular hypertrophy. 5. There is moderate global hypokinesis of LV . 6. Overall left ventricular systolic function is moderate-severely impaired with, an EF between 30 - 35 %. 7. The RV was not well visualized. 8. LA is severely dilated >40 ml/m2 9. RA appears enlarged. 10. There is mild to moderate aortic valve sclerosis. 11. There is moderate aortic regurgitation. 12. The mitral valve leaflets are mildly thickened. 13. Mild mitral annular calcification present. 14. Mild mitral regurgitation is present. 15. Trace tricuspid regurgitation present. 16. Right ventricular systolic pressure is normal at < 35 mmHg. 17. There is no evidence of pulmonary hypertension. 18. The pulmonic valve was not well visualized. 19. The aortic root size is normal. 20. There is no pericardial effusion. BUCKLE SEWER: Von Fox RDCS
[2018-03-22 12:28] LABS: Glucose,Whole Blood >600 mg/dL (75-99)
[2018-03-22] MEDS: CLOPIDOGREL 75 MG TAB PO SCH (13:14)
[2018-03-22] MEDS: SODIUM CHLORIDE 0.9% 1,000 ML IV SCH ×5 (13:21→21:18)
[2018-03-22] MEDS: LOSARTAN 50 MG TAB PO SCH (13:42)
[2018-03-22] MEDS: METOPROLOL TARTRATE 25 MG TAB PO SCH ×2 (13:43→21:19)
[2018-03-22] MEDS ORDERED: SODIUM CHLORIDE 0.9% 1,000 ML IV ONE ×4 (13:52→20:37)
[2018-03-22 13:58] LABS: Blood Urea Nitrogen 39 mg/dL (7-17); Calcium 10.2 mg/dL (8.4-10.2); Chloride 109 mmol/L (98-107); Potassium 4.6 mmol/L (3.5-5.1); Sodium 143 mmol/L (137-145)
[2018-03-22] MEDS: RIVAROXABAN 15 MG TAB PO SCH (14:13)
--- NOTE | 2018-03-22 14:13 | P.CNPUL ---
History of Present Illness Consult date: 03/22/18 Chief complaint: Diabetic ketoacidosis, altered mentation, lethargy and weakness. History of present illness: This is a 72-year-old female patient, known history of non-small cell lung cancer locally advanced post chemoradiation therapy with favorable response. The patient is also known to have coronary artery disease and she underwent coronary artery bypass surgery 2005. No previous history of diabetes mellitus. She presented to the hospital because of rapid onset confusion did involved over the past 24 hours. The patient was having excessive urination and dry mouth. She was also getting progressively more weak, lethargic, altered mentation and she arrived to the emergency department and her blood work was typical of an acute DKA with anion gap metabolic acidosis and a serum bicarb of less than 5 and positive acetone. Her initial blood sugar was above 800. The patient was also found to be in atrial fibrillation with rapid ventricular response. Her BNP level was 3720. First set of troponin was at 0.24. She was started on a Cardizem drip for rate control. She was given 2 L of IV fluids and she was started on insulin drip which is currently running at 10 units an hour. She got she has had to the intensive care unit. Anatomical my evaluation, the patient was much more alert and awake. She was following commands and answering questions appropriately. He denied having any chest pain. She denied any any cough or sputum production. No fever or chills. She is not known to have diabetes mellitus. She has been taken Imfinzi , immunotherapy, regarding her non-small cell lung cancer. No dysuria frequency or urgency. Some vague abdominal discomfort which ultimately recovered. No abdominal distention. No emesis. No pleurisy. No hemoptysis. Chest x-ray shows no acute abnormalities. Cardiology is on the case. Echocardiac Rommel was done and the patient was found to have an ejection fraction of 30-35% along with global hypokinesis. In regards to her atrial fibrillation, the patient is currently on Cardizem drip for rate control. In regards to her pulmonary status,, I diagnosed this patient with stage III non -small cell lung cancer. She was not found to be a surgical candidate. She was referred to chemoradiation therapy. She completed the radiation rounds November 2017 with some shortness of breath and radiation his esophagitis which ultimately recovered. She was also fatigued during the time of treatment. She also received systemic chemotherapy and she has completed the treatment. Follow- up PET/CT was done on 01/27/2018 and the findings showed positive treatment response with diminished size of the left suprahilar mass currently measuring 12 x 11 mm in size and there is also diminished in metabolic activity with an SUV of 5.43 compared to 9.1. No new areas of abnormal metabolic activity. The patient was seen by Dr. Hubert Brown for a surgical consultation and the patient was not found to be in adequate surgical candidate because of her underlying lung function and location of the mass that would ultimately need an pneumonectomy which is not possible in this situation. Based on all this, the patient was started on immunotherapy and the patient is receiving Imfinzi Review of Systems Constitutional: Reports daytime sleepiness, Reports fatigue, Reports lethargy, Reports malaise, Reports poor appetite, Reports weakness Eyes: bilateral blurred vision, bilateral decreased vision, denies bulging eye Ears: deny: decreased hearing, ear discharge, earache, tinnitus Ears, nose, mouth and throat: Denies headache, Denies sore throat Cardiovascular: Reports decreased exercise tolerance, Reports dyspnea on exertion, Reports shortness of breath Gastrointestinal: Denies abdominal pain, Denies diarrhea, Denies nausea, Denies vomiting Genitourinary: Denies dysuria, Denies hematuria Menstruation: Reports as per HPI Musculoskeletal: Denies myalgias Musculoskeletal: absent: ankle pain, ankle stiffness, ankle swelling Integumentary: Denies pruritus, Denies rash Neurological: Reports weakness Psychiatric: Reports confusion Endocrine: Reports as per HPI, Reports fatigue Hematologic/Lymphatic: Reports as per HPI Allergic/Immunologic: Reports as per HPI Past Medical History Past Medical History: Coronary Artery Disease (CAD), Cancer, Chest Pain / Angina , Hyperlipidemia, Hypertension, Myocardial Infarction (non Q-wave), Osteoarthritis (OA), Thyroid Disorder Additional Past Medical History / Comment(s): Non small cell L upper lobe lung cancer-completed chemo/radiation and was to receive 3rd dose of immunotherapy today, arthritis multiple joints/back, chronic low back pain, asthma as a child , hypothyroid. Last Myocardial Infarction Date:: 2005 History of Any Multi-Drug Resistant Organisms: None Reported Past Surgical History: Adenoidectomy, Coronary Bypass/CABG, Heart Catheterization, Heart Catheterization With Stent, Tonsillectomy Additional Past Surgical History / Comment(s): L caratid endartectomy, PCI with multiple stents, 2005 CABG 3 vessels, colonoscopy, hemangioma removed from around mouth when a child Past Anesthesia/Blood Transfusion Reactions: No Reported Reaction, Motion Sickness Additional Past Anesthesia/Blood Transfusion Reaction / Comment(s): Daughter believes pt received blood with CABG surgery. Date of Last Stent Placement:: 2005 Past Psychological History: No Psychological Hx Reported Additional Psychological History / Comment(s): Pt resides with her [employer] cash. She normally uses a walker prn. 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 Daughter is home at all times and assists pt when needed. Smoking Status: Former smoker Past Alcohol Use History: None Reported Additional Past Alcohol Use History / Comment(s): Pt started smoking in 1962 and quit in 2015. Past Drug Use History: None Reported - Past Family History Father Family Medical History: Cancer Additional Family Medical History / Comment(s): Father had prostrate cancer. Mother Family Medical History: Respiratory Disorder Additional Family Medical History / Comment(s): Mother had lung disease. Medications and Allergies Home Medications Medication Instructions Recorded Confirmed Type Aspirin 81 mg PO DAILY 10/04/17 03/22/18 History Clopidogrel Bisulfate [Plavix] 75 mg PO DAILY 10/04/17 03/22/18 History Furosemide [Lasix] 20 mg PO DAILY PRN 10/04/17 03/22/18 History Levothyroxine Sodium [Synthroid] 175 mcg PO DAILY 10/04/17 03/22/18 History Losartan [Cozaar] 50 mg PO DAILY 10/04/17 03/22/18 History Metoprolol Tartrate 25 mg PO BID 10/04/17 03/22/18 History Allergies Allergy/AdvReac Type Severity Reaction Status Date / Time Penicillins Allergy Rash/Hives Verified 03/22/18 07:57 Physical Exam Vitals: Vital Signs Temp Pulse Resp BP Pulse Ox 03/22/18 13:00 101 H 25 H 92/73 96 03/22/18 12:45 88 33 H 85/50 95 03/22/18 12:30 96.0 F L 103 H 28 H 104/69 98 03/22/18 12:22 117 H 33 H 03/22/18 12:00 118 H 20 95/35 100 03/22/18 11:30 126 H 20 161/114 03/22/18 11:00 123 H 20 123/83 03/22/18 09:00 100/38 03/22/18 08:30 121 H 30 H 114/65 03/22/18 08:22 123 H 03/22/18 08:18 97.8 F 101 H 22 114/65 99 03/22/18 08:12 125 H 03/22/18 08:00 103 H 29 H 114/65 03/22/18 07:39 93 L Intake and Output 03/21/18 03/22/18 03/22/18 22:59 06:59 14:59 Intake Total 400 Output Total 95 Balance 305 Intake: Intake, IV Titration 400 Amount Sodium Chloride 0.9% 1, 400 000 ml @ 200 mls/hr IV . Q5H [facility] Rx#:[id number] Output: Urine 95 Other: Weight 107.1 kg General Appearance no diaphoresis, diminished level of consciousness yet awake and answering questions at this point in time,, mild respiratory distress, s HEENT no pursed lip breathing, no jugular venous distention, no mucous membrane cyanosis, no perioral cyanosis, mallampati classification: class 1, Mallampati Classification: Class 4 Chest no barrel chest, no retractions, no sternocleidomastoid muscle contractions, no supraclavicular retractions, no intercostal retractions, no prolonged expiratory wheezing, no decreased air movement, no rhonchi, no hyperinflation, (normal) adventitious sounds: rales / crackles: bilaterally: midlung hou, decreased air movement Heart no right ventricular heave, no distant heart sounds, no s3 gallop, (normal ) jugular vein: jugular venous distention: by 0cm, (normal) jugular vein, Murmurs: Unspecified Location: Systolic: Grade 3 / IV GI bowel sounds: hyperactive (borborygmi), bowel sounds: diminished or absent Extremities no cyanosis, no clubbing, no edema Neurologic the patient is moving all 4 extremities without any limitation. No focal neurological deficit. She has motor weakness in all 4 extremities, 4/5 motor function. Cranial nerves are intact. Pupils are equal and reactive to light. No neck stiffness. Gait and Mobility: Not performed as the patient is currently laying down comfortably in bed and she is having significant amount of weakness as she is being treated for DKA. Results - Laboratory Findings CBC and BMP: 03/22/18 08:10 03/22/18 08:10 PT/INR, D-dimer PT 10.7 sec (9.0-12.0) 03/22/18 08:10 INR 1.1 (<1.2) 03/22/18 08:10 D-Dimer 7.40 mg/L FEU (<0.60) H 03/22/18 08:10 Abnormal lab findings: Abnormal Labs 03/22/18 03/22/18 03/22/18 08:10 08:10 08:10 WBC 11.7 H Hgb 16.7 H Hct 56.3 H MCV 110.0 H MCHC 29.7 L Neutrophils # 10.0 H D-Dimer Potassium 5.2 H Carbon Dioxide <5 L* BUN 35 H Creatinine 1.97 H Glucose 851 H* POC Glucose (mg/dL) Calcium 11.0 H CK-MB (CK-2) 3.5 H Troponin I 0.246 H* Urine Appearance Urine Protein Urine Glucose (UA) Urine Ketones Urine Blood Ur Squamous Epith Cells Amorphous Sediment Urine Mucus 03/22/18 03/22/18 03/22/18 08:10 08:10 08:54 WBC Hgb Hct MCV MCHC Neutrophils # D-Dimer 7.40 H Potassium Carbon Dioxide BUN Creatinine Glucose POC Glucose (mg/dL) >600 H Calcium CK-MB (CK-2) Troponin I Urine Appearance Turbid H Urine Protein 2+ H Urine Glucose (UA) 4+ H Urine Ketones 2+ H Urine Blood Moderate H Ur Squamous Epith Cells 10 H Amorphous Sediment Few H Urine Mucus Occasional H 03/22/18 03/22/18 12:05 12:24 WBC Hgb Hct MCV MCHC Neutrophils # D-Dimer Potassium Carbon Dioxide BUN Creatinine Glucose POC Glucose (mg/dL) >600 H >600 H Calcium CK-MB (CK-2) Troponin I Urine Appearance Urine Protein Urine Glucose (UA) Urine Ketones Urine Blood Ur Squamous Epith Cells Amorphous Sediment Urine Mucus - Diagnostic Findings Chest x-ray: image reviewed Assessment and Plan Plan: Assessment 1 acute DKA with anion gap metabolic acidosis and positive acetone and the patient who does not have history of diabetes mellitus. 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 2 new onset atrial fibrillation with rapid ventricular response, currently on a Cardizem drip 3 CHF with an ejection fraction of 30-35% and global hypokinesis 4 coronary artery disease with previous bypass surgery in 2005 5 non-small cell lung cancer, the patient was diagnosed having stage IIIB non- small cell lung cancer. She was treated with a combination of chemoradiation therapy. She had favorable response. She was considered for surgical resection and she was seen by Dr. Hubert Brown and she was labeled to be a nonsurgical candidate due to her borderline lung function and the tumor location. The patient's baseline FEV1 was 60% of predicted. Based on this, the patient was started on PDL1 antagonist, immunotherapy, Imfinzi, and she has already received 3 cycles of this systemic treatment. 6 chronic dyspnea secondary to above 7 obesity BMI 40.5 8 acute kidney injury secondary to intravascular volume depletion/DKA Plan We'll treat this patient as a regular case of DKA. This may be a new onset DKA for the reasons mentioned above. She has already received 2 L of IV fluids. We 'll give another 2 L bolus of normal saline and continue maintenance of 200 mL an follow the DKA protocol. The patient is currently on insulin drip for blood sugar control. Currently she is on 10 units an hour. Check electrodes every 4 hours. Monitor the serum bicarbonate and anion gap. The patient has also developed an acute kidney injury secondary to intravascular volume depletion and anticipate improvement in renal function with fluid resuscitation. Echocardiogram was noted. Continue Cardizem drip for rate control. Continue anticoagulation with Xarelto. Check a hemoglobin A1c. The patient be kept in the intensive care unit. We'll continue to follow make further recommendations based on her progress.
[2018-03-22 14:15] LABS: Carbon Dioxide <5 mmol/L (22-30); Glucose 702 mg/dL (74-99)
[2018-03-22 14:17] LABS: Glucose,Whole Blood >600 mg/dL (75-99)
[2018-03-22] MEDS ORDERED: NALOXONE 0.4 MG/ML 1 ML VIAL IV PRN (14:23)
[2018-03-22] MEDS: PANTOPRAZOLE 40 MG/10 ML VIAL IV SCH (15:04)
[2018-03-22 15:27] LABS: Glucose,Whole Blood 525 mg/dL (75-99)
[2018-03-22 16:14] LABS: Glucose,Whole Blood 420 mg/dL (75-99)
[2018-03-22 16:58] LABS: Glucose,Whole Blood 389 mg/dL (75-99)
[2018-03-22 18:48] LABS: Glucose,Whole Blood 348 mg/dL (75-99)
[2018-03-22 18:56] LABS: Hemoglobin A1C 6.3 % (4.0-6.0)
[2018-03-22 19:05] LABS: Glucose,Whole Blood 256 mg/dL (75-99)
[2018-03-22] MEDS: D5-0.45% NACL WITH KCL 20MEQ/L 1,000 ML IV SCH (20:19)
[2018-03-22 20:36] LABS: Glucose,Whole Blood 220 mg/dL (75-99)
[2018-03-22 20:57] LABS: Calcium 8.9 mg/dL (8.4-10.2); Phosphorus 2.9 mg/dL (2.5-4.5); Potassium 3.6 mmol/L (3.5-5.1)
[2018-03-22 20:57] LABS: Glucose,Whole Blood 200 mg/dL (75-99)
[2018-03-22] MEDS ORDERED: POTASSIUM CHLORIDE ER 20 MEQ TAB.ER PO SCH (22:00)
[2018-03-22 22:26] LABS: Glucose,Whole Blood 160 mg/dL (75-99)
[2018-03-22] MEDS ORDERED: HEPARIN SODIUM,PORCINE 5,000 UNIT/ML 1 ML VIAL IV PRN (22:34)
[2018-03-22] MEDS ORDERED: HEPARIN SOD,PORK IN 0.45% NACL 25,000 UNIT in 0.45% NACL 1 500ML.BAG IV SCH (22:45)
--- NOTE | 2018-03-22 23:03 | P.HPIM ---
History of Present Illness H&P Date: 03/22/18 Chief Complaint: Dizziness Patient is a 72-year-old female with a known history of coronary artery disease , CABG and also stent placement, non-small cell lung cancer diagnosed in September 2017 status post chemotherapy and radiation, currently on immunotherapy presented to ER with complaints of dizziness and weakness worsening for the past 1 day. Patient also having excessive urination and became progressively weak and lethargic. Patient was brought to the hospital by her daughter. Patient was found to be in acute DKA with a acetone positive and bicarb less than 5. Initial blood sugar is greater than 800. Patient was also found to be in atrial fibrillation with rapid regular rate. Patient is currently in the MICU. patient is on Cardizem drip as well as insulin drip. Patient does not have any history of diabetes in the past. Patient denied any fever or chills. No couplets abdominal pain. No nausea vomiting. Chest x-ray showed no acute cardiopulmonary process. EKG showed Atrial fibrillation with rapid ventricular rate 2-D echocardiogram was done showed ejection fraction 30-35% with global hypokinesis. Troponin 0.246 BNP 3720 Cardiology and pulmonary is following. Review of Systems Constitutional: Patient denies any fever or chills . Patient does have generalized weakness and lethargic. Abdomen: Does have nausea. No vomiting. No abdominal pain. Patient does have polyuria and dry mouth. Cardiovascular: Patient denies any chest pain or short of breath no palpitations. Respiratory: patient denied any cough is from production. No shortness of breath Complete review of systems could not be apparent from the patient. Past Medical History Past Medical History: Coronary Artery Disease (CAD), Cancer, Chest Pain / Angina , Hyperlipidemia, Hypertension, Myocardial Infarction (non Q-wave), Osteoarthritis (OA), Thyroid Disorder Additional Past Medical History / Comment(s): Non small cell L upper lobe lung cancer-completed chemo/radiation and was to receive 3rd dose of immunotherapy today, arthritis multiple joints/back, chronic low back pain, asthma as a child , hypothyroid. Last Myocardial Infarction Date:: 2005 History of Any Multi-Drug Resistant Organisms: None Reported Past Surgical History: Adenoidectomy, Coronary Bypass/CABG, Heart Catheterization, Heart Catheterization With Stent, Tonsillectomy Additional Past Surgical History / Comment(s): L caratid endartectomy, PCI with multiple stents, 2005 CABG 3 vessels, colonoscopy, hemangioma removed from around mouth when a child Past Anesthesia/Blood Transfusion Reactions: No Reported Reaction, Motion Sickness Additional Past Anesthesia/Blood Transfusion Reaction / Comment(s): Daughter believes pt received blood with CABG surgery. Date of Last Stent Placement:: 2005 Past Psychological History: No Psychological Hx Reported Additional Psychological History / Comment(s): Pt resides with her [employer] cash. She normally uses a walker prn. 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 Daughter is home at all times and assists pt when needed. Smoking Status: Former smoker Past Alcohol Use History: None Reported Additional Past Alcohol Use History / Comment(s): Pt started smoking in 1962 and quit in 2015. Past Drug Use History: None Reported - Past Family History Father Family Medical History: Cancer Additional Family Medical History / Comment(s): Father had prostrate cancer. Mother Family Medical History: Respiratory Disorder Additional Family Medical History / Comment(s): Mother had lung disease. Medications and Allergies Home Medications Medication Instructions Recorded Confirmed Type Aspirin 81 mg PO DAILY 10/04/17 03/22/18 History Clopidogrel Bisulfate [Plavix] 75 mg PO DAILY 10/04/17 03/22/18 History Furosemide [Lasix] 20 mg PO DAILY PRN 10/04/17 03/22/18 History Levothyroxine Sodium [Synthroid] 175 mcg PO DAILY 10/04/17 03/22/18 History Losartan [Cozaar] 50 mg PO DAILY 10/04/17 03/22/18 History Metoprolol Tartrate 25 mg PO BID 10/04/17 03/22/18 History Allergies Allergy/AdvReac Type Severity Reaction Status Date / Time Penicillins Allergy Rash/Hives Verified 03/22/18 07:57 Physical Exam Vitals: Vital Signs Temp Pulse Resp BP Pulse Ox 03/22/18 12:30 96.0 F L 103 H 28 H 104/69 98 03/22/18 12:22 117 H 33 H 03/22/18 12:00 118 H 20 95/35 100 03/22/18 11:30 126 H 20 161/114 03/22/18 11:00 123 H 20 123/83 03/22/18 09:00 100/38 03/22/18 08:30 121 H 30 H 114/65 03/22/18 08:22 123 H 03/22/18 08:18 97.8 F 101 H 22 114/65 99 03/22/18 08:12 125 H 03/22/18 08:00 103 H 29 H 114/65 03/22/18 07:39 93 L Intake and Output 03/21/18 03/22/18 03/22/18 22:59 06:59 14:59 Other: Weight 107.1 kg PHYSICAL EXAMINATION: Patient is lying in the bed comfortably, no acute distress, awake alert but lethargic and confused.. HEENT: Normocephalic. Neck is supple. Pupils reactive. Nostrils clear. Oral cavity is moist. Ears reveal no drainage. Neck reveals no JVD, carotid bruits, or thyromegaly. CHEST EXAMINATION: Trachea is central. Symmetrical expansion. Lung hou clear to auscultation and percussion. CARDIAC: Normal S1, S2 with no gallops. No murmurs . A. fib with RVR. Bibasilar diminished air entry. ABDOMEN: Soft. Bowel sounds normal. No organomegaly. No abdominal bruits. Extremities: reveal no edema. No clubbing or cyanosis Neurologically awake, alert, confused and lethargic. with well-coordinated movements. No focal deficits noted Skin: No rash or skin lesions. Psychiatric: Coperative. Could not be assessed completely Musculoskeletal: No joint swelling or deformity. Results CBC & Chem 7: 03/22/18 08:10 03/22/18 20:18 Labs: Abnormal Lab Results - Last 24 Hours (Table) 03/22/18 03/22/18 03/22/18 Range/Units 08:10 08:10 08:10 WBC 11.7 H (3.8-10.6) k/uL Hgb 16.7 H (11.4-16.0) gm/dL Hct 56.3 H (34.0-46.0) % MCV 110.0 H (80.0-100.0) fL MCHC 29.7 L (31.0-37.0) g/dL Neutrophils # 10.0 H (1.3-7.7) k/uL D-Dimer (<0.60) mg/L FEU Potassium 5.2 H (3.5-5.1) mmol/L Carbon Dioxide <5 L* (22-30) mmol/L BUN 35 H (7-17) mg/dL Creatinine 1.97 H (0.52-1.04) mg/dL Glucose 851 H* (74-99) mg/dL POC Glucose (mg/dL) (75-99) mg/dL Calcium 11.0 H (8.4-10.2) mg/dL CK-MB (CK-2) 3.5 H (0.0-2.4) ng/mL Troponin I 0.246 H* (0.000-0.034) ng/mL Urine Appearance (Clear) Urine Protein (Negative) Urine Glucose (UA) (Negative) Urine Ketones (Negative) Urine Blood (Negative) Ur Squamous Epith Cells (0-4) /hpf Amorphous Sediment (None) /hpf Urine Mucus (None) /hpf 03/22/18 03/22/18 03/22/18 Range/Units 08:10 08:10 08:54 WBC (3.8-10.6) k/uL Hgb (11.4-16.0) gm/dL Hct (34.0-46.0) % MCV (80.0-100.0) fL MCHC (31.0-37.0) g/dL Neutrophils # (1.3-7.7) k/uL D-Dimer 7.40 H (<0.60) mg/L FEU Potassium (3.5-5.1) mmol/L Carbon Dioxide (22-30) mmol/L BUN (7-17) mg/dL Creatinine (0.52-1.04) mg/dL Glucose (74-99) mg/dL POC Glucose (mg/dL) >600 H (75-99) mg/dL Calcium (8.4-10.2) mg/dL CK-MB (CK-2) (0.0-2.4) ng/mL Troponin I (0.000-0.034) ng/mL Urine Appearance Turbid H (Clear) Urine Protein 2+ H (Negative) Urine Glucose (UA) 4+ H (Negative) Urine Ketones 2+ H (Negative) Urine Blood Moderate H (Negative) Ur Squamous Epith Cells 10 H (0-4) /hpf Amorphous Sediment Few H (None) /hpf Urine Mucus Occasional H (None) /hpf 11/15/18 11/15/18 Range/Units 12:05 12:24 WBC (3.8-10.6) k/uL Hgb (11.4-16.0) gm/dL Hct (34.0-46.0) % MCV (80.0-100.0) fL MCHC (31.0-37.0) g/dL Neutrophils # (1.3-7.7) k/uL D-Dimer (<0.60) mg/L FEU Potassium (3.5-5.1) mmol/L Carbon Dioxide (22-30) mmol/L BUN (7-17) mg/dL Creatinine (0.52-1.04) mg/dL Glucose (74-99) mg/dL POC Glucose (mg/dL) >600 H >600 H (75-99) mg/dL Calcium (8.4-10.2) mg/dL CK-MB (CK-2) (0.0-2.4) ng/mL Troponin I (0.000-0.034) ng/mL Urine Appearance (Clear) Urine Protein (Negative) Urine Glucose (UA) (Negative) Urine Ketones (Negative) Urine Blood (Negative) Ur Squamous Epith Cells (0-4) /hpf Amorphous Sediment (None) /hpf Urine Mucus (None) /hpf Thrombosis Risk Factor Assmnt - Choose All That Apply Any of the Below Risk Factors Present?: Yes Each Factor Represents 1 point: Heart failure (<1month) Other Risk Factors: Yes Each Risk Factor Represents 2 Points: Age 61-74 years, Malignancy Other congenital or acquired thrombophilia - If yes, enter type in comment: No Thrombosis Risk Factor Assessment Total Risk Factor Score: 5 Thrombosis Risk Factor Assessment Level: High Risk Assessment and Plan Assessment: Acute diabetic ketoacidosis with no prior history of diabetes. Anion gap metabolic acidosis New onset atrial fibrillation with RVR Acute CHF with ejection fraction 30-35% and global hypokinesis Coronary artery disease with history of CABG and stent placement Acute kidney injury most likely prerenal Non-small cell lung cancers diagnosed in September 2017. Status post chemoradiation and currently on immunotherapy. Patient was not a surgical candidate. Morbid Obesity BMI 40.5 Elevated troponin level likely due to demand ischemia. Possible non-ST elevated LA. DVT prophylaxis Plan: Patient will be continued on aggressive hydration due to hypotension. Continue with insulin drip until anion gap closes and Cardizem drip for rate control. DKA protocol. Patient was started on anticoagulation in the form of xarelto. Cardiology and pulmonary is following. Prognosis is poor with multiple medical problems and comorbid conditions including non-small cell lung cancer. Further recommendations based on the cervical course. Time with Patient: Greater than 30
[2018-03-22 23:06] LABS: Glucose,Whole Blood 145 mg/dL (75-99)
[2018-03-23 00:05] LABS: Glucose,Whole Blood 103 mg/dL (75-99)
[2018-03-23] MEDS: DILTIAZEM 50 MG in SODIUM CHLORIDE 0.9% 40 ML IV SCH ×2 (00:09→18:13)
[2018-03-23] MEDS: D5-0.45% NACL WITH KCL 20MEQ/L 1,000 ML IV SCH ×4 (00:11→18:09)
[2018-03-23] MEDS: SODIUM CHLORIDE 0.9% 1,000 ML IV SCH ×3 (00:11→10:14)
[2018-03-23] MEDS ORDERED: NOREPINEPHRINE 4 MG in SODIUM CHLORIDE 0.9% 250 ML IV SCH (00:30)
[2018-03-23 01:28] LABS: Calcium 8.7 mg/dL (8.4-10.2); Magnesium 1.6 mg/dL (1.6-2.3); Phosphorus 2.6 mg/dL (2.5-4.5); Potassium 3.6 mmol/L (3.5-5.1)
[2018-03-23 01:30] LABS: Glucose,Whole Blood 94 mg/dL (75-99)
[2018-03-23 01:37] LABS: Glucose,Whole Blood 99 mg/dL (75-99)
[2018-03-23] MEDS ORDERED: POTASSIUM CHLORIDE ER 20 MEQ TAB.ER PO SCH (02:00)
[2018-03-23] MEDS: MAGNESIUM SULFATE-D5W PMX 1 GM in DEXTROSE/WATER 1 100ML.BAG IVPB SCH ×2 (02:03→03:18)
[2018-03-23 02:12] LABS: Glucose,Whole Blood 124 mg/dL (75-99)
[2018-03-23] MEDS: INSULIN REGULAR 100 UNIT in SODIUM CHLORIDE 0.9% 100 ML IV SCH ×3 (02:14→21:04)
[2018-03-23 02:58] LABS: Glucose,Whole Blood 151 mg/dL (75-99)
[2018-03-23 04:15] LABS: Glucose,Whole Blood 190 mg/dL (75-99)
[2018-03-23 05:26] LABS: Glucose,Whole Blood 206 mg/dL (75-99)
[2018-03-23 05:51] LABS: Calcium 8.9 mg/dL (8.4-10.2); Magnesium 2.1 mg/dL (1.6-2.3); Phosphorus 3.2 mg/dL (2.5-4.5)
[2018-03-23 06:01] LABS: Basophils % (A) 0 %; Eosinophils # (A) 0.1 k/uL (0-0.7); Eosinophils % (A) 1 %; HCT 37.2 % (34.0-46.0); Hypochromasia Slight; Lymphocytes # (A) 0.6 k/uL (1.0-4.8); Lymphocytes % (A) 5 %; MCH 33.7 pg (25.0-35.0); MCHC 33.4 g/dL (31.0-37.0); Mean Platelet Volume 8.3; Monocytes # (A) 0.6 k/uL (0-1.0); Monocytes % (A) 5 %; Neutrophils # (A) 9.9 k/uL (1.3-7.7); Neutrophils % (A) 88 %; Platelet Count 131 k/uL (150-450); RBC 3.69 m/uL (3.80-5.40); RDW 13.4 % (11.5-15.5); WBC 11.3 k/uL (3.8-10.6)
[2018-03-23 06:05] LABS: INR 1.1 (<1.2); Prothrombin Time 11.1 sec (9.0-12.0)
[2018-03-23 06:12] LABS: Glucose,Whole Blood 224 mg/dL (75-99)
[2018-03-23 06:27] LABS: HGB 12.4 gm/dL (11.4-16.0)
--- NOTE | 2018-03-23 07:02 | XR ---
EXAMINATION TYPE: XR chest 1V portable DATE OF EXAM: 03/23/2018 CLINICAL HISTORY: Difficulty breathing progress study. Hypoglycemia and cough. History of non-small cell lung cancer. TECHNIQUE: Single AP portable upright view of the chest is obtained. COMPARISON: Chest x-ray from one day earlier. PET/CT January 27, 2018 FINDINGS: Overlying sternal wires and mediastinal clips are redemonstrated. There is background sales associate alan emphysematous change without suspicious focal airspace opacity, pleural effusion, or pneumothorax seen bilaterally. Cardiac silhouette size is stable and upper limits of normal with atherosclerotic thoracic aorta. Left hilar mass or neoplasm is seen better on PET/CT versus x-ray. Osseous structures are intact. IMPRESSION: Overall stable findings, chronic changes without suspicious acute infiltrate currently.
[2018-03-23 07:15] LABS: Glucose,Whole Blood 202 mg/dL (75-99)
[2018-03-23 08:16] LABS: Glucose,Whole Blood 214 mg/dL (75-99)
[2018-03-23 08:46] LABS: Magnesium 2.2 mg/dL (1.6-2.3)
[2018-03-23] MEDS: PANTOPRAZOLE 40 MG/10 ML VIAL IV SCH (09:10)
[2018-03-23] MEDS: CLOPIDOGREL 75 MG TAB PO SCH (09:10)
[2018-03-23] MEDS: LOSARTAN 50 MG TAB PO SCH (09:11)
[2018-03-23] MEDS: RIVAROXABAN 15 MG TAB PO SCH (09:11)
[2018-03-23 09:31] LABS: Glucose,Whole Blood 259 mg/dL (75-99)
--- NOTE | 2018-03-23 09:35 | P.PN ---
Subjective Progress Note Date: 03/23/18 Principal diagnosis: Acute DKA with anion gap metabolic acidosis, new onset A. fib RVR, CHF, non-ST elevated CO This is a 72-year-old female patient, known history of non-small cell lung cancer locally advanced post chemoradiation therapy with favorable response. The patient is also known to have coronary artery disease and she underwent coronary artery bypass surgery 2005. No previous history of diabetes mellitus. She presented to the hospital because of rapid onset confusion did involved over the past 24 hours. The patient was having excessive urination and dry mouth. She was also getting progressively more weak, lethargic, altered mentation and she arrived to the emergency department and her blood work was typical of an acute DKA with anion gap metabolic acidosis and a serum bicarb of less than 5 and positive acetone. Her initial blood sugar was above 800. The patient was also found to be in atrial fibrillation with rapid ventricular response. Her BNP level was 3720. First set of troponin was at 0.24. She was started on a Cardizem drip for rate control. She was given 2 L of IV fluids and she was started on insulin drip which is currently running at 10 units an hour. She got she has had to the intensive care unit. Anatomical my evaluation, the patient was much more alert and awake. She was following commands and answering questions appropriately. He denied having any chest pain. She denied any any cough or sputum production. No fever or chills. She is not known to have diabetes mellitus. She has been taken Imfinzi , immunotherapy, regarding her non-small cell lung cancer. No dysuria frequency or urgency. Some vague abdominal discomfort which ultimately recovered. No abdominal distention. No emesis. No pleurisy. No hemoptysis. Chest x-ray shows no acute abnormalities. Cardiology is on the case. Echocardiac Rommel was done and the patient was found to have an ejection fraction of 30-35% along with global hypokinesis. In regards to her atrial fibrillation, the patient is currently on Cardizem drip for rate control. In regards to her pulmonary status,, I diagnosed this patient with stage III non -small cell lung cancer. She was not found to be a surgical candidate. She was referred to chemoradiation therapy. She completed the radiation rounds November 2017 with some shortness of breath and radiation his esophagitis which ultimately recovered. She was also fatigued during the time of treatment. She also received systemic chemotherapy and she has completed the treatment. Follow- up PET/CT was done on 01/27/2018 and the findings showed positive treatment response with diminished size of the left suprahilar mass currently measuring 12 x 11 mm in size and there is also diminished in metabolic activity with an SUV of 5.43 compared to 9.1. No new areas of abnormal metabolic activity. The patient was seen by Dr. Hubert Brown for a surgical consultation and the patient was not found to be in adequate surgical candidate because of her underlying lung function and location of the mass that would ultimately need an pneumonectomy which is not possible in this situation. Based on all this, the patient was started on immunotherapy and the patient is receiving Imfinzi On 03/23/2018 patient seen in follow-up in the intensive care unit, she is awake and alert, in no acute distress, no shortness of breath or chest pain. Remains in A. fib, the rate is better controlled, and it's ranging from 93-103 BPM. Levo fed has been on hold since 7:00 this morning. Patient remains on Cardizem drip currently at 5 mg per hour, maintenance IV fluids D5 half-normal saline with 20 in the care of potassium at 150 ML per hour. Insulin drip is currently at 2.5 units per hour. This morning's blood work has been reviewed and showed WBC of 11.3, hemoglobin is 12.4, anion gap has closed and at 8, chloride is 123, CO2 is 12, BUN is 35 and creatinine is 1.2. This morning his troponin is 34.7. She has been evaluated by cardiology, and once the patient is stabilized the plan is for possible heart catheterization. Urine and blood cultures remain negative. Today's chest x-ray has been reviewed, and shows overall stable findings, Objective - Vital Signs Vital signs: Vital Signs Temp 98.2 F 03/23/18 08:00 Pulse 103 H 03/23/18 09:00 Resp 16 03/23/18 09:00 BP 120/64 03/23/18 09:00 Pulse Ox 98 03/23/18 09:00 Intake & Output 03/22/18 03/23/18 03/23/18 18:59 06:59 18:59 Intake Total 3115.750 3897.583 488.75 Output Total 475 1205 350 Balance 2640.750 2692.583 138.75 Weight 107.1 kg 109.769 kg Intake: IV 2600 3650 450 D5-0.45% NaCl with KCl 1650 450 20Meq/l 1,000 ml @ 150 mls/hr IV .Q6H40M [facility] Rx# :[id number] Sodium Chloride 0.9% 1, 600 000 ml @ 200 mls/hr IV . Q5H [facility] Rx#:[id number] Sodium Chloride 0.9% 1, 2000 2000 000 ml @ 999 mls/hr IV . Q1H1M [facility] Rx#:[id number] Intake, IV Titration 515.750 247.583 38.75 Amount Diltiazem 50 mg In Sodium 14.75 45.583 Chloride 0.9% 40 ml @ 5 MG/HR 5 mls/hr IV .Q10H [facility] Rx#:[id number] Insulin Regular 100 unit 101.000 202 In Sodium Chloride 0.9% 100 ml @ 0.1 UNITS/KG/HR 10.99 mls/hr IV .Q9H12M [facility] Rx#:[id number] Norepinephrine 4 mg In 38.75 Sodium Chloride 0.9% 250 ml @ Titrate IV .Q0M [facility] Rx#:[id number] Sodium Chloride 0.9% 1, 400 000 ml @ 200 mls/hr IV . Q5H [facility] Rx#:[id number] Output: Urine 475 1205 350 Other: Voiding Method Indwelling Catheter Indwelling Catheter - Exam General Appearance no diaphoresis, diminished level of consciousness yet awake and answering questions at this point in time,, mild respiratory distress, s HEENT no pursed lip breathing, no jugular venous distention, no mucous membrane cyanosis, no perioral cyanosis, mallampati classification: class 1, Mallampati Classification: Class 4 Chest no barrel chest, no retractions, no sternocleidomastoid muscle contractions, no supraclavicular retractions, no intercostal retractions, no prolonged expiratory wheezing, no decreased air movement, no rhonchi, no hyperinflation, (normal) adventitious sounds: diminished breath sounds Heart no right ventricular heave, no distant heart sounds, no s3 gallop, (normal ) jugular vein: jugular venous distention: by 0cm, (normal) jugular vein, Murmurs: Unspecified Location: Systolic: Grade 3 / IV GI bowel sounds: hyperactive (borborygmi), bowel sounds: diminished or absent Extremities no cyanosis, no clubbing, no edema Neurologic the patient is moving all 4 extremities without any limitation. No focal neurological deficit. She has motor weakness in all 4 extremities, 4/5 motor function. Cranial nerves are intact. Pupils are equal and reactive to light. No neck stiffness. Gait and Mobility: Not performed as the patient is currently laying down comfortably in bed and she is having significant amount of weakness as she is being treated for DKA. - Labs CBC & Chem 7: 03/23/18 05:10 03/23/18 07:15 Labs: Abnormal Lab Results - Last 24 Hours (Table) 03/22/18 03/22/18 03/22/18 Range/Units 08:10 08:10 12:05 WBC (3.8-10.6) k/uL RBC (3.80-5.40) m/uL MCV (80.0-100.0) fL Plt Count (150-450) k/uL Neutrophils # (1.3-7.7) k/uL Lymphocytes # (1.0-4.8) k/uL D-Dimer 7.40 H (<0.60) mg/L FEU Chloride (98-107) mmol/L Carbon Dioxide (22-30) mmol/L BUN (7-17) mg/dL Creatinine (0.52-1.04) mg/dL Glucose (74-99) mg/dL POC Glucose (mg/dL) >600 H (75-99) mg/dL Hemoglobin A1c 6.3 H (4.0-6.0) % Phosphorus (2.5-4.5) mg/dL Troponin I (0.000-0.034) ng/mL 03/22/18 03/22/18 03/22/18 Range/Units 12:24 13:10 14:06 WBC (3.8-10.6) k/uL RBC (3.80-5.40) m/uL MCV (80.0-100.0) fL Plt Count (150-450) k/uL Neutrophils # (1.3-7.7) k/uL Lymphocytes # (1.0-4.8) k/uL D-Dimer (<0.60) mg/L FEU Chloride 109 H (98-107) mmol/L Carbon Dioxide <5 L* (22-30) mmol/L BUN 39 H (7-17) mg/dL Creatinine 1.93 H (0.52-1.04) mg/dL Glucose 702 H* (74-99) mg/dL POC Glucose (mg/dL) >600 H >600 H (75-99) mg/dL Hemoglobin A1c (4.0-6.0) % Phosphorus 9.0 H* (2.5-4.5) mg/dL Troponin I (0.000-0.034) ng/mL 03/22/18 03/22/18 03/22/18 Range/Units 15:24 16:11 16:55 WBC (3.8-10.6) k/uL RBC (3.80-5.40) m/uL MCV (80.0-100.0) fL Plt Count (150-450) k/uL Neutrophils # (1.3-7.7) k/uL Lymphocytes # (1.0-4.8) k/uL D-Dimer (<0.60) mg/L FEU Chloride (98-107) mmol/L Carbon Dioxide (22-30) mmol/L BUN (7-17) mg/dL Creatinine (0.52-1.04) mg/dL Glucose (74-99) mg/dL POC Glucose (mg/dL) 525 H 420 H 389 H (75-99) mg/dL Hemoglobin A1c (4.0-6.0) % Phosphorus (2.5-4.5) mg/dL Troponin I (0.000-0.034) ng/mL 03/22/18 03/22/18 03/22/18 Range/Units 17:20 18:10 19:03 WBC (3.8-10.6) k/uL RBC (3.80-5.40) m/uL MCV (80.0-100.0) fL Plt Count (150-450) k/uL Neutrophils # (1.3-7.7) k/uL Lymphocytes # (1.0-4.8) k/uL D-Dimer (<0.60) mg/L FEU Chloride 116 H (98-107) mmol/L Carbon Dioxide 9 L* (22-30) mmol/L BUN 40 H (7-17) mg/dL Creatinine 1.72 H (0.52-1.04) mg/dL Glucose 409 H (74-99) mg/dL POC Glucose (mg/dL) 348 H 256 H (75-99) mg/dL Hemoglobin A1c (4.0-6.0) % Phosphorus (2.5-4.5) mg/dL Troponin I (0.000-0.034) ng/mL 03/22/18 03/22/18 03/22/18 Range/Units 20:18 20:18 20:22 WBC (3.8-10.6) k/uL RBC (3.80-5.40) m/uL MCV (80.0-100.0) fL Plt Count (150-450) k/uL Neutrophils # (1.3-7.7) k/uL Lymphocytes # (1.0-4.8) k/uL D-Dimer (<0.60) mg/L FEU Chloride 119 H (98-107) mmol/L Carbon Dioxide 14 L (22-30) mmol/L BUN 39 H (7-17) mg/dL Creatinine 1.42 H (0.52-1.04) mg/dL Glucose 225 H (74-99) mg/dL POC Glucose (mg/dL) 220 H (75-99) mg/dL Hemoglobin A1c (4.0-6.0) % Phosphorus (2.5-4.5) mg/dL Troponin I 63.300 H* (0.000-0.034) ng/mL 03/22/18 03/22/18 03/22/18 Range/Units 20:53 22:00 23:02 WBC (3.8-10.6) k/uL RBC (3.80-5.40) m/uL MCV (80.0-100.0) fL Plt Count (150-450) k/uL Neutrophils # (1.3-7.7) k/uL Lymphocytes # (1.0-4.8) k/uL D-Dimer (<0.60) mg/L FEU Chloride (98-107) mmol/L Carbon Dioxide (22-30) mmol/L BUN (7-17) mg/dL Creatinine (0.52-1.04) mg/dL Glucose (74-99) mg/dL POC Glucose (mg/dL) 200 H 160 H 145 H (75-99) mg/dL Hemoglobin A1c (4.0-6.0) % Phosphorus (2.5-4.5) mg/dL Troponin I (0.000-0.034) ng/mL 03/23/18 03/23/18 03/23/18 Range/Units 00:03 00:49 02:10 WBC (3.8-10.6) k/uL RBC (3.80-5.40) m/uL MCV (80.0-100.0) fL Plt Count (150-450) k/uL Neutrophils # (1.3-7.7) k/uL Lymphocytes # (1.0-4.8) k/uL D-Dimer (<0.60) mg/L FEU Chloride 123 H (98-107) mmol/L Carbon Dioxide 12 L (22-30) mmol/L BUN 35 H (7-17) mg/dL Creatinine 1.20 H (0.52-1.04) mg/dL Glucose (74-99) mg/dL POC Glucose (mg/dL) 103 H 124 H (75-99) mg/dL Hemoglobin A1c (4.0-6.0) % Phosphorus (2.5-4.5) mg/dL Troponin I (0.000-0.034) ng/mL 03/23/18 03/23/18 03/23/18 Range/Units 02:54 04:10 05:10 WBC 11.3 H (3.8-10.6) k/uL RBC 3.69 L (3.80-5.40) m/uL MCV 101.0 H D (80.0-100.0) fL Plt Count 131 L (150-450) k/uL Neutrophils # 9.9 H (1.3-7.7) k/uL Lymphocytes # 0.6 L (1.0-4.8) k/uL D-Dimer (<0.60) mg/L FEU Chloride (98-107) mmol/L Carbon Dioxide (22-30) mmol/L BUN (7-17) mg/dL Creatinine (0.52-1.04) mg/dL Glucose (74-99) mg/dL POC Glucose (mg/dL) 151 H 190 H (75-99) mg/dL Hemoglobin A1c (4.0-6.0) % Phosphorus (2.5-4.5) mg/dL Troponin I (0.000-0.034) ng/mL 03/23/18 03/23/18 03/23/18 Range/Units 05:10 05:10 05:23 WBC (3.8-10.6) k/uL RBC (3.80-5.40) m/uL MCV (80.0-100.0) fL Plt Count (150-450) k/uL Neutrophils # (1.3-7.7) k/uL Lymphocytes # (1.0-4.8) k/uL D-Dimer (<0.60) mg/L FEU Chloride 120 H (98-107) mmol/L Carbon Dioxide 12 L (22-30) mmol/L BUN 34 H (7-17) mg/dL Creatinine 1.11 H (0.52-1.04) mg/dL Glucose 176 H (74-99) mg/dL POC Glucose (mg/dL) 206 H (75-99) mg/dL Hemoglobin A1c (4.0-6.0) % Phosphorus (2.5-4.5) mg/dL Troponin I 34.700 H* (0.000-0.034) ng/mL 03/23/18 03/23/18 03/23/18 Range/Units 06:10 07:11 08:02 WBC (3.8-10.6) k/uL RBC (3.80-5.40) m/uL MCV (80.0-100.0) fL Plt Count (150-450) k/uL Neutrophils # (1.3-7.7) k/uL Lymphocytes # (1.0-4.8) k/uL D-Dimer (<0.60) mg/L FEU Chloride (98-107) mmol/L Carbon Dioxide (22-30) mmol/L BUN (7-17) mg/dL Creatinine (0.52-1.04) mg/dL Glucose (74-99) mg/dL POC Glucose (mg/dL) 224 H 202 H 214 H (75-99) mg/dL Hemoglobin A1c (4.0-6.0) % Phosphorus (2.5-4.5) mg/dL Troponin I (0.000-0.034) ng/mL Microbiology - Last 24 Hours (Table) 03/22/18 08:10 Blood Culture - Final Blood 03/22/18 15:17 Urine Culture - Preliminary Urine,Catheterized Assessment and Plan Plan: 1 acute DKA with anion gap metabolic acidosis and positive acetone and the patient who does not have history of diabetes mellitus. 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 2 new onset atrial fibrillation with rapid ventricular response, currently on a Cardizem drip 3 non-ST elevated CO 4 CHF with an ejection fraction of 30-35% and global hypokinesis 5coronary artery disease with previous bypass surgery in 2005 6 non-small cell lung cancer, the patient was diagnosed having stage IIIB non- small cell lung cancer. She was treated with a combination of chemoradiation therapy. She had favorable response. She was considered for surgical resection and she was seen by Dr. Hubert Brown and she was labeled to be a nonsurgical candidate due to her borderline lung function and the tumor location. The patient's baseline FEV1 was 60% of predicted. Based on this, the patient was started on PDL1 antagonist, immunotherapy, Imfinzi, and she has already received 3 cycles of this systemic treatment. 7 chronic dyspnea secondary to above 8 obesity BMI 40.5 9 acute kidney injury secondary to intravascular volume depletion/DKA Plan: Anion gap has closed, she still has a degree of non-anion gap metabolic acidosis, will continue with insulin drip, we'll recheck electrolytes and 4 hours. Patient was seen in consultation by cardiology, denies any chest pain, denies any shortness of breath, troponin is trending down. She remains in A. fib, and the rate is better controlled, Cardizem will be discontinued, patient will be started on beta blockers. Continue with the IV fluids. She may start clear liquid diet. Will remain in the ICU. I performed a history & physical examination of the patient and discussed their management with my nurse practitioner, Kylah Carney. I reviewed the nurse practitioner's note and agree with the documented findings and plan of care. Lung sounds are diminished. The findings and the impression was discussed with the patient. I attest to the documentation by the nurse practitioner. Time with Patient: Greater than 30
[2018-03-23 10:01] LABS: Glucose,Whole Blood 233 mg/dL (75-99)
[2018-03-23 10:18] LABS: Calcium 9.1 mg/dL (8.4-10.2); Phosphorus 1.9 mg/dL (2.5-4.5); Potassium 4.3 mmol/L (3.5-5.1)
[2018-03-23] MEDS ORDERED: Phosphorus Replacement Protoco 1 EACH MISC MISCELLANE PRN (10:26)
[2018-03-23] MEDS ORDERED: POTASSIUM PHOSPHATE 10 MMOL in SODIUM CHLORIDE 0.9% 250 ML IV SCH (10:30)
--- NOTE | 2018-03-23 11:13 | PN ---
PROGRESS NOTE This patient has a known history of coronary artery disease with a prior history of coronary artery bypass surgery and stent placement. Patient came in yesterday because she was not feeling well. Patient was found to be in atrial fibrillation with moderately rapid rate. Patient was in diabetic ketoacidosis. Patient was admitted to the intensive care unit and she has been treated with antibiotics and insulin. Patient did not complain of any chest pain. She is comfortable. Patient has a non-small cell CA carcinoma. Patient's heart rate is 92 per minute, blood pressure is 93/58 mmHg. First and second heart sounds are heard. Lungs are clear to auscultation and percussion. Patient's electrolytes are normal, patient's bicarbonate is still at 14. Patient's maximum troponin was 663. Echocardiogram reveals evidence of global hypokinesia with ejection fraction in the range of 30%-35%. FINAL IMPRESSION: This patient has sustained non ST-segment elevation myocardial infarction associated with diabetic ketoacidosis. Patient's condition discussed with the family members. We will discuss with Dr. Shaw about her long-term prognosis and then decide next week regarding further evaluation with a cardiac catheterization. I also discussed with Dr. Naveen Villarreal, who is her primary research electrician. MMODL / IJN: [id number] /
[2018-03-23] MEDS: POTASSIUM PHOSPHATE 10 MMOL in SODIUM CHLORIDE 0.9% 250 ML IV SCH ×4 (11:30→22:59)
[2018-03-23] MEDS: METOPROLOL TARTRATE 25 MG TAB PO SCH ×2 (11:32→20:10)
[2018-03-23 11:38] LABS: Glucose,Whole Blood 257 mg/dL (75-99)
[2018-03-23 11:58] LABS: Glucose,Whole Blood 228 mg/dL (75-99)
[2018-03-23 13:24] LABS: Glucose,Whole Blood 229 mg/dL (75-99)
[2018-03-23 14:08] LABS: Glucose,Whole Blood 222 mg/dL (75-99)
[2018-03-23 15:52] LABS: Calcium 8.8 mg/dL (8.4-10.2); Phosphorus 2.1 mg/dL (2.5-4.5); Potassium 4.4 mmol/L (3.5-5.1)
[2018-03-23 15:56] LABS: Glucose,Whole Blood 214 mg/dL (75-99)
[2018-03-23 17:58] LABS: Glucose,Whole Blood 202 mg/dL (75-99)
[2018-03-23 18:11] LABS: Glucose,Whole Blood 191 mg/dL (75-99)
[2018-03-23 18:21] LABS: Phosphorus 1.8 mg/dL (2.5-4.5)
[2018-03-23 19:11] LABS: Glucose,Whole Blood 170 mg/dL (75-99)
[2018-03-23] MEDS: DOCUSATE 100 MG CAP PO SCH (20:10)
[2018-03-23 20:22] LABS: Glucose,Whole Blood 162 mg/dL (75-99)
[2018-03-23 21:06] LABS: Glucose,Whole Blood 136 mg/dL (75-99)
[2018-03-23 22:05] LABS: Glucose,Whole Blood 135 mg/dL (75-99)
[2018-03-23 23:00] LABS: Glucose,Whole Blood 140 mg/dL (75-99)
[2018-03-23 23:35] LABS: Potassium 4.1 mmol/L (3.5-5.1)
[2018-03-24 00:04] LABS: Glucose,Whole Blood 156 mg/dL (75-99)
--- NOTE | 2018-03-24 00:31 | P.PN ---
Subjective Progress Note Date: 03/23/18 Principal diagnosis: New onset diabetic ketoacidosis A. fib with RVR Patient is a 72-year-old female with a known history of coronary artery disease , CABG and also stent placement, non-small cell lung cancer diagnosed in September 2017 status post chemotherapy and radiation, currently on immunotherapy presented to ER with complaints of dizziness and weakness worsening for the past 1 day. Patient also having excessive urination and became progressively weak and lethargic. Patient was brought to the hospital by her daughter. Patient was found to be in acute DKA with a acetone positive and bicarb less than 5. Initial blood sugar is greater than 800. Patient was also found to be in atrial fibrillation with rapid regular rate. Patient is currently in the MICU. patient is on Cardizem drip as well as insulin drip. Patient does not have any history of diabetes in the past. Patient denied any fever or chills. No couplets abdominal pain. No nausea vomiting. Chest x-ray showed no acute cardiopulmonary process. EKG showed Atrial fibrillation with rapid ventricular rate 2-D echocardiogram was done showed ejection fraction 30-35% with global hypokinesis. Troponin 0.246 BNP 3720 Date 03/23/2018 Patient is more awake and oriented today. Says that she feels much better today. Anion gap closed. Bicarb is still at 14. Patient otherwise remains in atrial fibrillation. Rate is fairly controlled. Patient became hypotensive and was started on Levophed drip. Continued on insulin drip. Patient was found have elevated troponin level at 34, trending down from 63 yesterday. Cardiology is planning for catheterization once patient is clinically stable. Cultures have been negative. Chest x-ray showed overall stable findings. Without suspicion for any infiltrate. Current medications reviewed. Active Medications Clopidogrel Bisulfate (Plavix) 75 mg PO DAILY [facility] Last Admin: 03/23/18 09:10 Dose: 75 mg Docusate Sodium (Colace) 100 mg PO BID [facility] Last Admin: 03/23/18 20:10 Dose: 100 mg Diltiazem HCl 50 mg/ Sodium (Chloride) 50 mls @ 5 mls/hr IV .Q10H [facility] Last Admin: 03/23/18 18:13 Dose: Not Given Insulin Human Regular 100 unit (/ Sodium Chloride) 101 mls @ 10.99 mls/hr IV .Q9H12M [facility]; Protocol Last Admin: 03/23/18 21:04 Dose: 2.25 units/kg/hr, 247.38 mls/hr Potassium Chloride/Dextrose/Sod Cl (D5%-1/2ns-Kcl 20 Meq/L Iv Solution) 1,000 mls @ 150 mls/hr IV .Q6H40M [facility] Last Admin: 03/23/18 18:09 Dose: 150 mls/hr Norepinephrine Bitartrate 4 mg (/ Sodium Chloride) 250 mls @ 0 mls/hr IV .Q0M [facility]; Protocol Last Titration: 03/23/18 08:00 Dose: 0 mcg/min, 0 mls/hr Ceftriaxone Sodium 1,000 mg/ (Sodium Chloride) 50 mls @ 100 mls/hr IVPB Q24H [facility] Last Admin: 03/23/18 01:04 Dose: 100 mls/hr Losartan Potassium (Cozaar) 50 mg PO DAILY [facility] Last Admin: 03/23/18 09:11 Dose: Not Given Metoprolol Tartrate (Lopressor) 25 mg PO BID [facility] Last Admin: 03/23/18 20:10 Dose: 25 mg Miscellaneous Information (Potassium Per Protocol) 1 each MISCELLANE DAILY PRN PRN Reason: Per Protocol Miscellaneous Information (Magnesium Per Protocol) 1 each MISCELLANE DAILY PRN ; Protocol PRN Reason: Per Protocol Miscellaneous Information (Potassium Per Protocol) 1 each MISCELLANE DAILY PRN ; Protocol PRN Reason: Per Protocol Miscellaneous Information (Phosphorus Per Protocol) 1 each MISCELLANE DAILY PRN ; Protocol PRN Reason: Per Protocol Naloxone HCl (Narcan) 0.2 mg IV Q2M PRN PRN Reason: Opioid Reversal Pantoprazole Sodium (Protonix) 40 mg IV DAILY [facility] Last Admin: 03/23/18 09:10 Dose: 40 mg Rivaroxaban (Xarelto) 15 mg PO W/BRKFST [facility] Last Admin: 03/23/18 09:11 Dose: 15 mg Objective - Vital Signs Vital signs: Vital Signs Temp 97.7 F 03/23/18 12:00 Pulse 80 03/23/18 14:00 Resp 25 H 03/23/18 14:00 BP 101/52 03/23/18 14:00 Pulse Ox 98 03/23/18 14:00 Intake & Output 03/22/18 03/23/18 03/23/18 18:59 06:59 18:59 Intake Total 3115.750 3897.583 1759.00 Output Total 475 1205 800 Balance 2640.750 2692.583 959.00 Weight 107.1 kg 109.769 kg Intake: IV 2600 3650 1575 D5-0.45% NaCl with KCl 1650 1200 20Meq/l 1,000 ml @ 150 mls/hr IV .Q6H40M [facility] Rx# :[id number] Potassium Phosphate 10 375 mmol In Sodium Chloride 0 .9% 250 ml @ 125 mls/hr IV Q2H [facility] Rx#:[id number] Sodium Chloride 0.9% 1, 600 000 ml @ 200 mls/hr IV . Q5H [facility] Rx#:[id number] Sodium Chloride 0.9% 1, 2000 2000 000 ml @ 999 mls/hr IV . Q1H1M [facility] Rx#:[id number] Intake, IV Titration 515.750 247.583 184.00 Amount Diltiazem 50 mg In Sodium 14.75 45.583 44.25 Chloride 0.9% 40 ml @ 5 MG/HR 5 mls/hr IV .Q10H [facility] Rx#:[id number] Insulin Regular 100 unit 101.000 202 101 In Sodium Chloride 0.9% 100 ml @ 0.1 UNITS/KG/HR 10.99 mls/hr IV .Q9H12M [facility] Rx#:[id number] Norepinephrine 4 mg In 38.75 Sodium Chloride 0.9% 250 ml @ Titrate IV .Q0M [facility] Rx#:[id number] Sodium Chloride 0.9% 1, 400 000 ml @ 200 mls/hr IV . Q5H [facility] Rx#:[id number] Output: Urine 475 1205 800 Other: Voiding Method Indwelling Catheter Indwelling Catheter Indwelling Catheter # Bowel Movements 1 - Exam PHYSICAL EXAMINATION: Patient is lying in the bed comfortably, no acute distress, awake alert and oriented.. HEENT: Normocephalic. Neck is supple. Pupils reactive. Nostrils clear. Oral cavity is moist. Ears reveal no drainage. Neck reveals no JVD, carotid bruits, or thyromegaly. CHEST EXAMINATION: Trachea is central. Symmetrical expansion. Lung hou clear to auscultation and percussion. CARDIAC: Normal S1, S2 with no gallops. No murmurs . Irregularly irregular rhythm. ABDOMEN: Soft. Bowel sounds normal. No organomegaly. No abdominal bruits. Extremities: reveal no edema. No clubbing or cyanosis Neurologically awake, alert, oriented x3 with well-coordinated movements. No focal deficits noted Skin: No rash or skin lesions. Psychiatric: Coperative. Nonsuicidal Musculoskeletal: No joint swelling or deformity. Normal range of motion. - Labs CBC & Chem 7: 03/23/18 05:10 03/23/18 22:14 Labs: Abnormal Lab Results - Last 24 Hours (Table) 03/22/18 03/22/18 03/22/18 Range/Units 08:10 15:24 16:11 WBC (3.8-10.6) k/uL RBC (3.80-5.40) m/uL MCV (80.0-100.0) fL Plt Count (150-450) k/uL Neutrophils # (1.3-7.7) k/uL Lymphocytes # (1.0-4.8) k/uL Chloride (98-107) mmol/L Carbon Dioxide (22-30) mmol/L BUN (7-17) mg/dL Creatinine (0.52-1.04) mg/dL Glucose (74-99) mg/dL POC Glucose (mg/dL) 525 H 420 H (75-99) mg/dL Hemoglobin A1c 6.3 H (4.0-6.0) % Phosphorus (2.5-4.5) mg/dL Troponin I (0.000-0.034) ng/mL 03/22/18 03/22/18 03/22/18 Range/Units 16:55 17:20 18:10 WBC (3.8-10.6) k/uL RBC (3.80-5.40) m/uL MCV (80.0-100.0) fL Plt Count (150-450) k/uL Neutrophils # (1.3-7.7) k/uL Lymphocytes # (1.0-4.8) k/uL Chloride 116 H (98-107) mmol/L Carbon Dioxide 9 L* (22-30) mmol/L BUN 40 H (7-17) mg/dL Creatinine 1.72 H (0.52-1.04) mg/dL Glucose 409 H (74-99) mg/dL POC Glucose (mg/dL) 389 H 348 H (75-99) mg/dL Hemoglobin A1c (4.0-6.0) % Phosphorus (2.5-4.5) mg/dL Troponin I (0.000-0.034) ng/mL 03/22/18 03/22/18 03/22/18 Range/Units 19:03 20:18 20:18 WBC (3.8-10.6) k/uL RBC (3.80-5.40) m/uL MCV (80.0-100.0) fL Plt Count (150-450) k/uL Neutrophils # (1.3-7.7) k/uL Lymphocytes # (1.0-4.8) k/uL Chloride 119 H (98-107) mmol/L Carbon Dioxide 14 L (22-30) mmol/L BUN 39 H (7-17) mg/dL Creatinine 1.42 H (0.52-1.04) mg/dL Glucose 225 H (74-99) mg/dL POC Glucose (mg/dL) 256 H (75-99) mg/dL Hemoglobin A1c (4.0-6.0) % Phosphorus (2.5-4.5) mg/dL Troponin I 63.300 H* (0.000-0.034) ng/mL 03/22/18 03/22/18 03/22/18 Range/Units 20:22 20:53 22:00 WBC (3.8-10.6) k/uL RBC (3.80-5.40) m/uL MCV (80.0-100.0) fL Plt Count (150-450) k/uL Neutrophils # (1.3-7.7) k/uL Lymphocytes # (1.0-4.8) k/uL Chloride (98-107) mmol/L Carbon Dioxide (22-30) mmol/L BUN (7-17) mg/dL Creatinine (0.52-1.04) mg/dL Glucose (74-99) mg/dL POC Glucose (mg/dL) 220 H 200 H 160 H (75-99) mg/dL Hemoglobin A1c (4.0-6.0) % Phosphorus (2.5-4.5) mg/dL Troponin I (0.000-0.034) ng/mL 03/22/18 03/23/18 03/23/18 Range/Units 23:02 00:03 00:49 WBC (3.8-10.6) k/uL RBC (3.80-5.40) m/uL MCV (80.0-100.0) fL Plt Count (150-450) k/uL Neutrophils # (1.3-7.7) k/uL Lymphocytes # (1.0-4.8) k/uL Chloride 123 H (98-107) mmol/L Carbon Dioxide 12 L (22-30) mmol/L BUN 35 H (7-17) mg/dL Creatinine 1.20 H (0.52-1.04) mg/dL Glucose (74-99) mg/dL POC Glucose (mg/dL) 145 H 103 H (75-99) mg/dL Hemoglobin A1c (4.0-6.0) % Phosphorus (2.5-4.5) mg/dL Troponin I (0.000-0.034) ng/mL 03/23/18 03/23/18 03/23/18 Range/Units 02:10 02:54 04:10 WBC (3.8-10.6) k/uL RBC (3.80-5.40) m/uL MCV (80.0-100.0) fL Plt Count (150-450) k/uL Neutrophils # (1.3-7.7) k/uL Lymphocytes # (1.0-4.8) k/uL Chloride (98-107) mmol/L Carbon Dioxide (22-30) mmol/L BUN (7-17) mg/dL Creatinine (0.52-1.04) mg/dL Glucose (74-99) mg/dL POC Glucose (mg/dL) 124 H 151 H 190 H (75-99) mg/dL Hemoglobin A1c (4.0-6.0) % Phosphorus (2.5-4.5) mg/dL Troponin I (0.000-0.034) ng/mL 03/23/18 03/23/18 03/23/18 Range/Units 05:10 05:10 05:10 WBC 11.3 H (3.8-10.6) k/uL RBC 3.69 L (3.80-5.40) m/uL MCV 101.0 H D (80.0-100.0) fL Plt Count 131 L (150-450) k/uL Neutrophils # 9.9 H (1.3-7.7) k/uL Lymphocytes # 0.6 L (1.0-4.8) k/uL Chloride 120 H (98-107) mmol/L Carbon Dioxide 12 L (22-30) mmol/L BUN 34 H (7-17) mg/dL Creatinine 1.11 H (0.52-1.04) mg/dL Glucose 176 H (74-99) mg/dL POC Glucose (mg/dL) (75-99) mg/dL Hemoglobin A1c (4.0-6.0) % Phosphorus (2.5-4.5) mg/dL Troponin I 34.700 H* (0.000-0.034) ng/mL 03/23/18 03/23/18 03/23/18 Range/Units 05:23 06:10 07:11 WBC (3.8-10.6) k/uL RBC (3.80-5.40) m/uL MCV (80.0-100.0) fL Plt Count (150-450) k/uL Neutrophils # (1.3-7.7) k/uL Lymphocytes # (1.0-4.8) k/uL Chloride (98-107) mmol/L Carbon Dioxide (22-30) mmol/L BUN (7-17) mg/dL Creatinine (0.52-1.04) mg/dL Glucose (74-99) mg/dL POC Glucose (mg/dL) 206 H 224 H 202 H (75-99) mg/dL Hemoglobin A1c (4.0-6.0) % Phosphorus (2.5-4.5) mg/dL Troponin I (0.000-0.034) ng/mL 03/23/18 03/23/18 03/23/18 Range/Units 08:02 09:18 09:49 WBC (3.8-10.6) k/uL RBC (3.80-5.40) m/uL MCV (80.0-100.0) fL Plt Count (150-450) k/uL Neutrophils # (1.3-7.7) k/uL Lymphocytes # (1.0-4.8) k/uL Chloride 120 H (98-107) mmol/L Carbon Dioxide 14 L (22-30) mmol/L BUN 30 H (7-17) mg/dL Creatinine (0.52-1.04) mg/dL Glucose 261 H (74-99) mg/dL POC Glucose (mg/dL) 214 H 259 H (75-99) mg/dL Hemoglobin A1c (4.0-6.0) % Phosphorus 1.9 L (2.5-4.5) mg/dL Troponin I (0.000-0.034) ng/mL 03/23/18 03/23/18 03/23/18 Range/Units 09:59 11:24 11:55 WBC (3.8-10.6) k/uL RBC (3.80-5.40) m/uL MCV (80.0-100.0) fL Plt Count (150-450) k/uL Neutrophils # (1.3-7.7) k/uL Lymphocytes # (1.0-4.8) k/uL Chloride (98-107) mmol/L Carbon Dioxide (22-30) mmol/L BUN (7-17) mg/dL Creatinine (0.52-1.04) mg/dL Glucose (74-99) mg/dL POC Glucose (mg/dL) 233 H 257 H 228 H (75-99) mg/dL Hemoglobin A1c (4.0-6.0) % Phosphorus (2.5-4.5) mg/dL Troponin I (0.000-0.034) ng/mL 03/23/18 03/23/18 Range/Units 13:10 14:04 WBC (3.8-10.6) k/uL RBC (3.80-5.40) m/uL MCV (80.0-100.0) fL Plt Count (150-450) k/uL Neutrophils # (1.3-7.7) k/uL Lymphocytes # (1.0-4.8) k/uL Chloride (98-107) mmol/L Carbon Dioxide (22-30) mmol/L BUN (7-17) mg/dL Creatinine (0.52-1.04) mg/dL Glucose (74-99) mg/dL POC Glucose (mg/dL) 229 H 222 H (75-99) mg/dL Hemoglobin A1c (4.0-6.0) % Phosphorus (2.5-4.5) mg/dL Troponin I (0.000-0.034) ng/mL Microbiology - Last 24 Hours (Table) 03/22/18 08:10 Blood Culture Gram Stain - Preliminary Blood 03/22/18 08:10 Blood Culture - Final Blood 03/22/18 15:17 Urine Culture - Preliminary Urine,Catheterized Assessment and Plan Assessment: Acute diabetic ketoacidosis with no prior history of diabetes. His B A1c 6.4. Suspected immunotherapy induced Anion gap metabolic acidosis New onset atrial fibrillation with RVR Acute Non-ST elevated ME Acute CHF with ejection fraction 30-35% and global hypokinesis Coronary artery disease with history of CABG and stent placement Acute kidney injury most likely prerenal Non-small cell lung cancers diagnosed in September 2017. Status post chemoradiation and currently on immunotherapy. Patient was not a surgical candidate. Morbid Obesity BMI 40.5 DVT prophylaxis Plan: Patient will be continued on aggressive hydration due to hypotension. Patient was started on Levophed. Continue with insulin drip until anion gap closes and Cardizem drip for rate control. Started on beta blockers and Cardizem drip will be tapered off. Continue with DKA protocol. Patient was started on anticoagulation in the form of xarelto. Cardiology is planning for catheterization once patient is clinically stable. Cardiology and pulmonary is following. Prognosis is poor with multiple medical problems and comorbid conditions including non-small cell lung cancer. Further recommendations based on the clinical course. Time with Patient: Greater than 30
[2018-03-24 01:25] LABS: Glucose,Whole Blood 154 mg/dL (75-99)
[2018-03-24] MEDS: D5-0.45% NACL WITH KCL 20MEQ/L 1,000 ML IV SCH ×4 (01:28→21:48)
[2018-03-24] MEDS: DILTIAZEM 50 MG in SODIUM CHLORIDE 0.9% 40 ML IV SCH ×3 (02:15→21:20)
[2018-03-24 02:44] LABS: Glucose,Whole Blood 187 mg/dL (75-99)
[2018-03-24 04:27] LABS: Glucose,Whole Blood 223 mg/dL (75-99)
[2018-03-24 04:40] LABS: Basophils % (A) 0 %; Eosinophils % (A) 1 %; HCT 35.6 % (34.0-46.0); HGB 11.4 gm/dL (11.4-16.0); Hypochromasia Slight; Lymphocytes # (A) 0.5 k/uL (1.0-4.8); Lymphocytes % (A) 10 %; MCH 32.6 pg (25.0-35.0); MCHC 32.1 g/dL (31.0-37.0); MCV 101.6 fL (80.0-100.0); Macrocytosis Slight; Mean Platelet Volume 8.3; Monocytes # (A) 0.2 k/uL (0-1.0); Monocytes % (A) 4 %; Neutrophils # (A) 4.4 k/uL (1.3-7.7); Neutrophils % (A) 84 %; RDW 13.4 % (11.5-15.5); WBC 5.3 k/uL (3.8-10.6)
[2018-03-24 04:51] LABS: INR 1.3 (<1.2); Partial Thromboplastin Time 27.5 sec (22.0-30.0); Prothrombin Time 12.4 sec (9.0-12.0)
[2018-03-24 04:55] LABS: Calcium 8.8 mg/dL (8.4-10.2); Magnesium 1.9 mg/dL (1.6-2.3); Phosphorus 2.6 mg/dL (2.5-4.5); Potassium 4.2 mmol/L (3.5-5.1)
[2018-03-24 05:07] LABS: Glucose,Whole Blood 225 mg/dL (75-99)
[2018-03-24 06:18] LABS: Glucose,Whole Blood 259 mg/dL (75-99)
--- NOTE | 2018-03-24 06:20 | XR ---
EXAMINATION TYPE: XR chest 1V portable DATE OF EXAM: 03/24/2018 HISTORY: ongoing cardiopulmonary issues. REFERENCE: Previous study dated 03/23/2018. FINDINGS: There has been a midline sternotomy. Heart size is upper limits of normal. The lungs appear clear. Pleural spaces are clear. IMPRESSION: BORDERLINE CARDIOMEGALY.
[2018-03-24] MEDS: MAGNESIUM SULFATE-D5W PMX 1 GM in DEXTROSE/WATER 1 100ML.BAG IVPB SCH ×2 (06:22→09:54)
[2018-03-24 06:28] LABS: Platelet Count 90 k/uL (150-450)
[2018-03-24 07:04] LABS: Glucose,Whole Blood 237 mg/dL (75-99)
[2018-03-24 08:48] LABS: Calcium 9.1 mg/dL (8.4-10.2); Magnesium 2.1 mg/dL (1.6-2.3); Phosphorus 2.3 mg/dL (2.5-4.5); Potassium 4.2 mmol/L (3.5-5.1)
[2018-03-24 09:17] LABS: Glucose,Whole Blood 302 mg/dL (75-99)
[2018-03-24] MEDS: PANTOPRAZOLE 40 MG/10 ML VIAL IV SCH (09:45)
[2018-03-24] MEDS: LOSARTAN 50 MG TAB PO SCH (09:46)
[2018-03-24] MEDS: CLOPIDOGREL 75 MG TAB PO SCH (09:46)
[2018-03-24] MEDS: METOPROLOL TARTRATE 25 MG TAB PO SCH ×2 (09:46→21:16)
[2018-03-24] MEDS: INSULIN REGULAR 100 UNIT in SODIUM CHLORIDE 0.9% 100 ML IV SCH ×2 (09:46→19:38)
[2018-03-24] MEDS: RIVAROXABAN 15 MG TAB PO SCH (09:46)
[2018-03-24] MEDS: DOCUSATE 100 MG CAP PO SCH ×2 (09:52→21:16)
[2018-03-24 10:19] LABS: Glucose,Whole Blood 304 mg/dL (75-99)
[2018-03-24 11:23] LABS: Glucose,Whole Blood 250 mg/dL (75-99)
--- NOTE | 2018-03-24 13:31 | P.PN ---
Subjective Progress Note Date: 03/24/18 This is a 72-year-old female who was admitted to the hospital with diabetic ketoacidosis, atrial fibrillation with rapid ventricular response and possible sepsis. Patient's heart rate is better controlled. Patient is on her IV Cardizem drip along with the metoprolol. Her heart rate is in the 70s. Blood pressures of 130/78. Chest x-ray showed borderline cardiac megaly. Lab values showed normal white count. BUN and creatinine are improving Objective - Vital Signs Vital signs: Vital Signs Temp 98.8 F 03/24/18 12:00 Pulse 72 03/24/18 12:00 Resp 27 H 03/24/18 12:00 BP 137/68 03/24/18 12:00 Pulse Ox 97 03/24/18 12:00 Intake & Output 03/23/18 03/24/18 03/24/18 18:59 06:59 18:59 Intake Total 2884.00 2551 1201 Output Total 1140 1305 515 Balance 1744.00 1246 686 Weight 111.584 kg Intake: IV 2300 2450 1100 D5-0.45% NaCl with KCl 1800 1800 900 20Meq/l 1,000 ml @ 150 mls/hr IV .Q6H40M [facility] Rx# :[id number] Magnesium Sulfate-D5w Pmx 100 200 1 gm In Dextrose/Water 1 100ml.bag @ 100 mls/hr IVPB Q1H [facility] Rx#: [id number] Potassium Phosphate 10 500 500 mmol In Sodium Chloride 0 .9% 250 ml @ 125 mls/hr IV Q2H [facility] Rx#:[id number] cefTRIAXone 1,000 mg In 50 Sodium Chloride 0.9% 50 ml @ 100 mls/hr IVPB Q24H [facility] Rx#:[id number] Intake, IV Titration 184.00 101 101 Amount Diltiazem 50 mg In Sodium 44.25 Chloride 0.9% 40 ml @ 5 MG/HR 5 mls/hr IV .Q10H [facility] Rx#:[id number] Insulin Regular 100 unit 101 101 101 In Sodium Chloride 0.9% 100 ml @ 0.1 UNITS/KG/HR 10.99 mls/hr IV .Q9H12M [facility] Rx#:[id number] Norepinephrine 4 mg In 38.75 Sodium Chloride 0.9% 250 ml @ Titrate IV .Q0M [facility] Rx#:[id number] Oral 400 Output: Urine 1140 1305 515 Other: Voiding Method Indwelling Catheter Indwelling Catheter Indwelling Catheter # Bowel Movements 1 - Exam GENERAL EXAM: Patient is alert HEENT: Normocephalic. Normal reaction of pupils, equal size, normal range of extraocular motion. No erythema or exudates in the throat. NECK: No masses, no nuchal rigidity. CHEST: No chest wall deformity. LUNGS: Equal air entry with no crackles or wheeze. HEART: S1 and S2 normal with no audible mumurs or gallops. Regular rhythm, femorals equal on both sides.. ABDOMEN: No hepatosplenomegaly, normal bowel sounds, no guarding or rigidity. SKIN: No rashes CENTRAL NERVOUS SYSTEM: No focal deficits. EXTREMITIES: No cyanosis, clubbing or edema. - Labs CBC & Chem 7: 03/24/18 04:13 03/24/18 07:49 Labs: Abnormal Lab Results - Last 24 Hours (Table) 03/23/18 03/23/18 03/23/18 Range/Units 14:04 14:34 15:53 RBC (3.80-5.40) m/uL MCV (80.0-100.0) fL Plt Count (150-450) k/uL Lymphocytes # (1.0-4.8) k/uL PT (9.0-12.0) sec INR (<1.2) Chloride 121 H (98-107) mmol/L Carbon Dioxide 13 L (22-30) mmol/L BUN 26 H (7-17) mg/dL Glucose 214 H (74-99) mg/dL POC Glucose (mg/dL) 222 H 214 H (75-99) mg/dL Phosphorus 2.1 L (2.5-4.5) mg/dL 03/23/18 03/23/18 03/23/18 Range/Units 17:08 17:49 18:07 RBC (3.80-5.40) m/uL MCV (80.0-100.0) fL Plt Count (150-450) k/uL Lymphocytes # (1.0-4.8) k/uL PT (9.0-12.0) sec INR (<1.2) Chloride 121 H (98-107) mmol/L Carbon Dioxide 15 L (22-30) mmol/L BUN 23 H (7-17) mg/dL Glucose 208 H (74-99) mg/dL POC Glucose (mg/dL) 202 H 191 H (75-99) mg/dL Phosphorus 1.8 L (2.5-4.5) mg/dL 03/23/18 03/23/18 03/23/18 Range/Units 18:57 20:08 21:03 RBC (3.80-5.40) m/uL MCV (80.0-100.0) fL Plt Count (150-450) k/uL Lymphocytes # (1.0-4.8) k/uL PT (9.0-12.0) sec INR (<1.2) Chloride (98-107) mmol/L Carbon Dioxide (22-30) mmol/L BUN (7-17) mg/dL Glucose (74-99) mg/dL POC Glucose (mg/dL) 170 H 162 H 136 H (75-99) mg/dL Phosphorus (2.5-4.5) mg/dL 03/23/18 03/23/18 03/23/18 Range/Units 21:51 22:14 22:57 RBC (3.80-5.40) m/uL MCV (80.0-100.0) fL Plt Count (150-450) k/uL Lymphocytes # (1.0-4.8) k/uL PT (9.0-12.0) sec INR (<1.2) Chloride 121 H (98-107) mmol/L Carbon Dioxide 17 L (22-30) mmol/L BUN 20 H (7-17) mg/dL Glucose 136 H (74-99) mg/dL POC Glucose (mg/dL) 135 H 140 H (75-99) mg/dL Phosphorus (2.5-4.5) mg/dL 03/23/18 03/24/18 03/24/18 Range/Units 23:51 00:58 02:30 RBC (3.80-5.40) m/uL MCV (80.0-100.0) fL Plt Count (150-450) k/uL Lymphocytes # (1.0-4.8) k/uL PT (9.0-12.0) sec INR (<1.2) Chloride (98-107) mmol/L Carbon Dioxide (22-30) mmol/L BUN (7-17) mg/dL Glucose (74-99) mg/dL POC Glucose (mg/dL) 156 H 154 H 187 H (75-99) mg/dL Phosphorus (2.5-4.5) mg/dL 03/24/18 03/24/18 03/24/18 Range/Units 04:13 04:13 04:13 RBC 3.50 L (3.80-5.40) m/uL MCV 101.6 H (80.0-100.0) fL Plt Count 90 L (150-450) k/uL Lymphocytes # 0.5 L (1.0-4.8) k/uL PT 12.4 H (9.0-12.0) sec INR 1.3 H (<1.2) Chloride 120 H (98-107) mmol/L Carbon Dioxide 15 L (22-30) mmol/L BUN 18 H (7-17) mg/dL Glucose 227 H (74-99) mg/dL POC Glucose (mg/dL) (75-99) mg/dL Phosphorus (2.5-4.5) mg/dL 03/24/18 03/24/18 03/24/18 Range/Units 04:25 04:52 06:14 RBC (3.80-5.40) m/uL MCV (80.0-100.0) fL Plt Count (150-450) k/uL Lymphocytes # (1.0-4.8) k/uL PT (9.0-12.0) sec INR (<1.2) Chloride (98-107) mmol/L Carbon Dioxide (22-30) mmol/L BUN (7-17) mg/dL Glucose (74-99) mg/dL POC Glucose (mg/dL) 223 H 225 H 259 H (75-99) mg/dL Phosphorus (2.5-4.5) mg/dL 03/24/18 03/24/18 03/24/18 Range/Units 07:00 07:49 09:03 RBC (3.80-5.40) m/uL MCV (80.0-100.0) fL Plt Count (150-450) k/uL Lymphocytes # (1.0-4.8) k/uL PT (9.0-12.0) sec INR (<1.2) Chloride 118 H (98-107) mmol/L Carbon Dioxide 15 L (22-30) mmol/L BUN (7-17) mg/dL Glucose 269 H (74-99) mg/dL POC Glucose (mg/dL) 237 H 302 H (75-99) mg/dL Phosphorus 2.3 L (2.5-4.5) mg/dL 03/24/18 03/24/18 Range/Units 10:16 11:20 RBC (3.80-5.40) m/uL MCV (80.0-100.0) fL Plt Count (150-450) k/uL Lymphocytes # (1.0-4.8) k/uL PT (9.0-12.0) sec INR (<1.2) Chloride (98-107) mmol/L Carbon Dioxide (22-30) mmol/L BUN (7-17) mg/dL Glucose (74-99) mg/dL POC Glucose (mg/dL) 304 H 250 H (75-99) mg/dL Phosphorus (2.5-4.5) mg/dL Microbiology - Last 24 Hours (Table) 03/23/18 00:49 Blood Culture - Preliminary Blood No Growth after 24 hours 03/22/18 15:17 Urine Culture - Final Urine,Catheterized 03/22/18 08:10 Blood Culture Gram Stain - Preliminary Blood 03/22/18 08:10 Blood Culture - Final Blood Assessment and Plan (1) CHF (congestive heart failure) Current Visit: Yes Status: Acute Code(s): I50.9 - HEART FAILURE, UNSPECIFIED SNOMED Code(s): 08443602 (2) DKA (diabetic ketoacidoses) Current Visit: Yes Status: Acute Code(s): E13.10 - OTH DIABETES MELLITUS WITH KETOACIDOSIS WITHOUT COMA SNOMED Code(s): 999044281 (3) Rapid atrial fibrillation Current Visit: Yes Status: Acute Code(s): I48.91 - UNSPECIFIED ATRIAL FIBRILLATION SNOMED Code(s): 643973536 (4) Renal insufficiency syndrome Current Visit: Yes Status: Acute Code(s): N28.9 - DISORDER OF KIDNEY AND URETER, UNSPECIFIED SNOMED Code(s): 096935799 Plan: Continue current medical therapy. May consider tapering of Cardizem
[2018-03-24 14:27] LABS: Glucose,Whole Blood 125 mg/dL (75-99)
[2018-03-24 16:59] LABS: Glucose,Whole Blood 105 mg/dL (75-99)
--- NOTE | 2018-03-24 17:18 | P.PN ---
Subjective Progress Note Date: 03/24/18 This is a 72-year-old female patient, known history of non-small cell lung cancer locally advanced post chemoradiation therapy with favorable response. The patient is also known to have coronary artery disease and she underwent coronary artery bypass surgery 2005. No previous history of diabetes mellitus. She presented to the hospital because of rapid onset confusion did involved over the past 24 hours. The patient was having excessive urination and dry mouth. She was also getting progressively more weak, lethargic, altered mentation and she arrived to the emergency department and her blood work was typical of an acute DKA with anion gap metabolic acidosis and a serum bicarb of less than 5 and positive acetone. Her initial blood sugar was above 800. The patient was also found to be in atrial fibrillation with rapid ventricular response. Her BNP level was 3720. First set of troponin was at 0.24. She was started on a Cardizem drip for rate control. She was given 2 L of IV fluids and she was started on insulin drip which is currently running at 10 units an hour. She got she has had to the intensive care unit. Anatomical my evaluation, the patient was much more alert and awake. She was following commands and answering questions appropriately. He denied having any chest pain. She denied any any cough or sputum production. No fever or chills. She is not known to have diabetes mellitus. She has been taken Imfinzi , immunotherapy, regarding her non-small cell lung cancer. No dysuria frequency or urgency. Some vague abdominal discomfort which ultimately recovered. No abdominal distention. No emesis. No pleurisy. No hemoptysis. Chest x-ray shows no acute abnormalities. Cardiology is on the case. Echocardiac Rommel was done and the patient was found to have an ejection fraction of 30-35% along with global hypokinesis. In regards to her atrial fibrillation, the patient is currently on Cardizem drip for rate control. In regards to her pulmonary status,, I diagnosed this patient with stage III non -small cell lung cancer. She was not found to be a surgical candidate. She was referred to chemoradiation therapy. She completed the radiation rounds November 2017 with some shortness of breath and radiation his esophagitis which ultimately recovered. She was also fatigued during the time of treatment. She also received systemic chemotherapy and she has completed the treatment. Follow- up PET/CT was done on 01/27/2018 and the findings showed positive treatment response with diminished size of the left suprahilar mass currently measuring 12 x 11 mm in size and there is also diminished in metabolic activity with an SUV of 5.43 compared to 9.1. No new areas of abnormal metabolic activity. The patient was seen by Dr. Hubert Brown for a surgical consultation and the patient was not found to be in adequate surgical candidate because of her underlying lung function and location of the mass that would ultimately need an pneumonectomy which is not possible in this situation. Based on all this, the patient was started on immunotherapy and the patient is receiving Imfinzi On 03/23/2018 patient seen in follow-up in the intensive care unit, she is awake and alert, in no acute distress, no shortness of breath or chest pain. Remains in A. fib, the rate is better controlled, and it's ranging from 93-103 BPM. Levo fed has been on hold since 7:00 this morning. Patient remains on Cardizem drip currently at 5 mg per hour, maintenance IV fluids D5 half-normal saline with 20 in the care of potassium at 150 ML per hour. Insulin drip is currently at 2.5 units per hour. This morning's blood work has been reviewed and showed WBC of 11.3, hemoglobin is 12.4, anion gap has closed and at 8, chloride is 123, CO2 is 12, BUN is 35 and creatinine is 1.2. This morning his troponin is 34.7. She has been evaluated by cardiology, and once the patient is stabilized the plan is for possible heart catheterization. Urine and blood cultures remain negative. Today's chest x-ray has been reviewed, and shows overall stable findings, On 03/24/2018, the patient is feeling well and she has no specific complaints. No respiratory distress. She is coming off the insulin drip. This morning she was on 2.5 Units of insulin drip and the plan was to switch this patient to Lantus insulin in the evening. Her anion gap metabolic acidosis closed and the serum bicarb is still at 15. The most recent blood sugar is 105. As for the atrial fibrillation, the issue and has converted to normal sinus rhythm and she is currently on a combination of Xarelto for long-term anticoagulation, and oral metoprolol. The patient has no chest pain. Cardiology also evaluated this patient and lisinopril got also added to her regimen. Troponin is declining is down to 34.7. Otherwise, there has been no other significant events overnight. The patient is resting comfortably for now. Objective - Vital Signs Vital signs: Vital Signs Temp 98.7 F 03/24/18 16:00 Pulse 74 03/24/18 17:00 Resp 18 03/24/18 17:00 BP 112/82 03/24/18 17:00 Pulse Ox 96 03/24/18 17:00 Intake & Output 03/23/18 03/24/18 03/24/18 18:59 06:59 18:59 Intake Total 2884.00 2551 1951 Output Total 1140 1305 1040 Balance 1744.00 1246 911 Weight 111.584 kg Intake: IV 2300 2450 1850 D5-0.45% NaCl with KCl 1800 1800 1650 20Meq/l 1,000 ml @ 150 mls/hr IV .Q6H40M [facility] Rx# :[id number] Magnesium Sulfate-D5w Pmx 100 200 1 gm In Dextrose/Water 1 100ml.bag @ 100 mls/hr IVPB Q1H [facility] Rx#: [id number] Potassium Phosphate 10 500 500 mmol In Sodium Chloride 0 .9% 250 ml @ 125 mls/hr IV Q2H [facility] Rx#:[id number] cefTRIAXone 1,000 mg In 50 Sodium Chloride 0.9% 50 ml @ 100 mls/hr IVPB Q24H [facility] Rx#:[id number] Intake, IV Titration 184.00 101 101 Amount Diltiazem 50 mg In Sodium 44.25 Chloride 0.9% 40 ml @ 5 MG/HR 5 mls/hr IV .Q10H [facility] Rx#:[id number] Insulin Regular 100 unit 101 101 101 In Sodium Chloride 0.9% 100 ml @ 0.1 UNITS/KG/HR 10.99 mls/hr IV .Q9H12M [facility] Rx#:[id number] Norepinephrine 4 mg In 38.75 Sodium Chloride 0.9% 250 ml @ Titrate IV .Q0M [facility] Rx#:[id number] Oral 400 Output: Urine 1140 1305 1040 Other: Voiding Method Indwelling Catheter Indwelling Catheter Indwelling Catheter # Bowel Movements 1 - Exam General Appearance no diaphoresis, awake and alert and there is no focal neurological deficit and awake and alert. Head exam was generally normal. There was no scleral icterus or corneal arcus. Mucous membranes were moist. Neck was supple and without jugular venous distension, thyromegaly, or carotid bruits. Carotids were easily palpable bilaterally. There was no adenopathy. Chest no barrel chest, no retractions, no sternocleidomastoid muscle contractions, no supraclavicular retractions, no intercostal retractions, no prolonged expiratory wheezing, no decreased air movement, no rhonchi, no hyperinflation, (normal) adventitious sounds: diminished breath sounds Heart no right ventricular heave, no distant heart sounds, no s3 gallop, (normal ) jugular vein: jugular venous distention: by 0cm, (normal) jugular vein, Murmurs: Unspecified Location: Systolic: Grade 3 / IV, she is in normal sinus rhythm for now and the S1 and S2 are both regular. GI bowel sounds: hyperactive (borborygmi), bowel sounds: diminished or absent Extremities no cyanosis, no clubbing, no edema Neurologic the patient is moving all 4 extremities without any limitation. No focal neurological deficit. - Labs CBC & Chem 7: 03/24/18 04:13 03/24/18 07:49 Labs: Abnormal Lab Results - Last 24 Hours (Table) 03/23/18 03/23/18 03/23/18 Range/Units 17:08 17:49 18:07 RBC (3.80-5.40) m/uL MCV (80.0-100.0) fL Plt Count (150-450) k/uL Lymphocytes # (1.0-4.8) k/uL PT (9.0-12.0) sec INR (<1.2) Chloride 121 H (98-107) mmol/L Carbon Dioxide 15 L (22-30) mmol/L BUN 23 H (7-17) mg/dL Glucose 208 H (74-99) mg/dL POC Glucose (mg/dL) 202 H 191 H (75-99) mg/dL Phosphorus 1.8 L (2.5-4.5) mg/dL 03/23/18 03/23/18 03/23/18 Range/Units 18:57 20:08 21:03 RBC (3.80-5.40) m/uL MCV (80.0-100.0) fL Plt Count (150-450) k/uL Lymphocytes # (1.0-4.8) k/uL PT (9.0-12.0) sec INR (<1.2) Chloride (98-107) mmol/L Carbon Dioxide (22-30) mmol/L BUN (7-17) mg/dL Glucose (74-99) mg/dL POC Glucose (mg/dL) 170 H 162 H 136 H (75-99) mg/dL Phosphorus (2.5-4.5) mg/dL 03/23/18 03/23/18 03/23/18 Range/Units 21:51 22:14 22:57 RBC (3.80-5.40) m/uL MCV (80.0-100.0) fL Plt Count (150-450) k/uL Lymphocytes # (1.0-4.8) k/uL PT (9.0-12.0) sec INR (<1.2) Chloride 121 H (98-107) mmol/L Carbon Dioxide 17 L (22-30) mmol/L BUN 20 H (7-17) mg/dL Glucose 136 H (74-99) mg/dL POC Glucose (mg/dL) 135 H 140 H (75-99) mg/dL Phosphorus (2.5-4.5) mg/dL 03/23/18 03/24/18 03/24/18 Range/Units 23:51 00:58 02:30 RBC (3.80-5.40) m/uL MCV (80.0-100.0) fL Plt Count (150-450) k/uL Lymphocytes # (1.0-4.8) k/uL PT (9.0-12.0) sec INR (<1.2) Chloride (98-107) mmol/L Carbon Dioxide (22-30) mmol/L BUN (7-17) mg/dL Glucose (74-99) mg/dL POC Glucose (mg/dL) 156 H 154 H 187 H (75-99) mg/dL Phosphorus (2.5-4.5) mg/dL 03/24/18 03/24/18 03/24/18 Range/Units 04:13 04:13 04:13 RBC 3.50 L (3.80-5.40) m/uL MCV 101.6 H (80.0-100.0) fL Plt Count 90 L (150-450) k/uL Lymphocytes # 0.5 L (1.0-4.8) k/uL PT 12.4 H (9.0-12.0) sec INR 1.3 H (<1.2) Chloride 120 H (98-107) mmol/L Carbon Dioxide 15 L (22-30) mmol/L BUN 18 H (7-17) mg/dL Glucose 227 H (74-99) mg/dL POC Glucose (mg/dL) (75-99) mg/dL Phosphorus (2.5-4.5) mg/dL 03/24/18 03/24/18 03/24/18 Range/Units 04:25 04:52 06:14 RBC (3.80-5.40) m/uL MCV (80.0-100.0) fL Plt Count (150-450) k/uL Lymphocytes # (1.0-4.8) k/uL PT (9.0-12.0) sec INR (<1.2) Chloride (98-107) mmol/L Carbon Dioxide (22-30) mmol/L BUN (7-17) mg/dL Glucose (74-99) mg/dL POC Glucose (mg/dL) 223 H 225 H 259 H (75-99) mg/dL Phosphorus (2.5-4.5) mg/dL 03/24/18 03/24/18 03/24/18 Range/Units 07:00 07:49 09:03 RBC (3.80-5.40) m/uL MCV (80.0-100.0) fL Plt Count (150-450) k/uL Lymphocytes # (1.0-4.8) k/uL PT (9.0-12.0) sec INR (<1.2) Chloride 118 H (98-107) mmol/L Carbon Dioxide 15 L (22-30) mmol/L BUN (7-17) mg/dL Glucose 269 H (74-99) mg/dL POC Glucose (mg/dL) 237 H 302 H (75-99) mg/dL Phosphorus 2.3 L (2.5-4.5) mg/dL 03/24/18 03/24/18 03/24/18 Range/Units 10:16 11:20 14:25 RBC (3.80-5.40) m/uL MCV (80.0-100.0) fL Plt Count (150-450) k/uL Lymphocytes # (1.0-4.8) k/uL PT (9.0-12.0) sec INR (<1.2) Chloride (98-107) mmol/L Carbon Dioxide (22-30) mmol/L BUN (7-17) mg/dL Glucose (74-99) mg/dL POC Glucose (mg/dL) 304 H 250 H 125 H (75-99) mg/dL Phosphorus (2.5-4.5) mg/dL 03/24/18 Range/Units 16:55 RBC (3.80-5.40) m/uL MCV (80.0-100.0) fL Plt Count (150-450) k/uL Lymphocytes # (1.0-4.8) k/uL PT (9.0-12.0) sec INR (<1.2) Chloride (98-107) mmol/L Carbon Dioxide (22-30) mmol/L BUN (7-17) mg/dL Glucose (74-99) mg/dL POC Glucose (mg/dL) 105 H (75-99) mg/dL Phosphorus (2.5-4.5) mg/dL Microbiology - Last 24 Hours (Table) 03/22/18 08:10 Blood Culture Gram Stain - Preliminary Blood Blood Culture - Preliminary Alpha Hemolytic Streptococcus Alpha Hemolytic Streptococcus#2 Coagulase Negative Staph 03/23/18 00:49 Blood Culture - Preliminary Blood No Growth after 24 hours 03/22/18 15:17 Urine Culture - Final Urine,Catheterized 03/22/18 08:10 Blood Culture - Final Blood Assessment and Plan Plan: Assessment 1 acute DKA with anion gap metabolic acidosis and positive acetone and the patient who does not have history of diabetes mellitus. 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 The patient has recovered from the acute DKA with closure of the anion gap and the serum bicarb is at 15. Still on insulin drip at 2.5 units an hour. 2 new onset atrial fibrillation with rapid ventricular response, treated and the patient converted to a normal sinus rhythm 3 CHF with an ejection fraction of 30-35% and global hypokinesis, compensated for now 4 coronary artery disease with previous bypass surgery in 2005, status post acute non-ST segment elevation myocardial infarction 5 non-small cell lung cancer, the patient was diagnosed having stage IIIB non- small cell lung cancer. She was treated with a combination of chemoradiation therapy. She had favorable response. She was considered for surgical resection and she was seen by Dr. Hubert Brown and she was labeled to be a nonsurgical candidate due to her borderline lung function and the tumor location. The patient's baseline FEV1 was 60% of predicted. Based on this, the patient was started on PDL1 antagonist, immunotherapy, Imfinzi, and she has already received 3 cycles of this systemic treatment. 6 chronic dyspnea secondary to above, recovered and the chest x-ray is within normal limits 7 obesity BMI 40.5 8 acute kidney injury secondary to intravascular volume depletion/DKA, recovered Plan Will continue the insulin drip till evening and will start the patient on Lantus 30 units at bedtime along with a sliding scale coverage with Humalog. Monitor the blood sugar. Monitor the bicarb levels. The patient will need diabetic education. The patient is also on accommodation beta blockers and jl inhibitors. Cardiac rhythm is back to sinus. She is on long-term anticoagulation with Xarelto. Cardiology is on the case pH is 70 chest pain. She did experience some shoulder pain yesterday which do not to be skeletal in nature. No other active issues for now. The renal function is normalized. Blood sugars under tighter control. She'll be likely moved to a medical floor with the next 24 hours. Overall she is doing well.
[2018-03-24 18:32] LABS: Glucose,Whole Blood 203 mg/dL (75-99)
[2018-03-24 19:44] LABS: Glucose,Whole Blood 261 mg/dL (75-99)
[2018-03-24] MEDS ORDERED: INSULIN DETEMIR 100 UNIT/ML 10 ML VIAL SQ SCH (21:00)
[2018-03-24 21:21] LABS: Glucose,Whole Blood 249 mg/dL (75-99)
[2018-03-24] MEDS: INSULIN DETEMIR 100 UNIT/ML 10 ML VIAL SQ SCH (21:48)
--- NOTE | 2018-03-24 22:16 | P.CONS ---
History of Present Illness - Reason for Consult Consult date: 03/24/18 Stage 3 lung cancer on Imfinizi (immunotherapy) Requesting physician: Armando Oneal - Chief Complaint increased glucose - History of Present Illness Laurie is refered by Dr Phillip after Bronchoscopy with biopsy was C/W NSCLC, ? Squamous cell. CT Scan of chest revealed 3X2.4 cm Left Suprahilar mass with adenopathy in L hilar, AP window, Pretracheal and subcarinal Lymphadenopathy with encasement of L upper lobe & Lower lobe pulmonary artery branches. She presented with progressive dyspnea, no chest pain, anorexia , weight loss or Hemoptysis. The patient is known to have extensive history of CAR with CABG and PTCA with stents placement, on Plavix. The patient smoked 1-2 PPD X 50 years, quit one year ago, denied ETOH use. 11/09/17: Feels Ok, PET scan revealed minimal uptake in Lymphadenopathy/ Mediastinum, no distant mets. Brain MRI negative for mets. 12/13/17: Feels Ok, tolerating concurrent therapy well ; mild nausea, no vomiting. Has expected mild dysphagia. 12/21/17: Feeling ok, WBC 1.3. 01/03/18:Pt completed chemo last week and XRT today! She feels good, no uncontrolled or unmanagable SE to report, 10 point ROS is negative. She will be seeing Dr. Rocha next week to ensure CBC recovery and get on her f/u schedule, she thinks Dr. Wills is planning a scan in about month . 01/11/18: Feels well, tired, has Radiation burn on back, dysphagia improved. She completed concurrent therapy 1 week ago. 02/01/18: Feels Ok, completed concurrent XRT/Chemotherapy, feels well. She was then started on Maintenance immunotherapy with Imfinzi for stage 3 Feels Ok, tolerated Imfinzi. She has been tolerating well. Last treatment 03/08/18. She presented to Emergency after her daughter states she became very short of breath, mental status changes and chills and sweats, associated nausea. She was found to be in acute DKA with a acetone positive and bicarb less than 5. Initial blood sugar is greater than 800. Patient was also found to be in atrial fibrillation with rapid regular rate. Admitted to ICU. She was placed on Cardizem drip as well as insulin drip. Patient does not have any history of diabetes in the past. Glucose on 03/02 was 93 in office. Review of Systems A 14 point review of systems assessed and completed and all negative except HPI Past Medical History Past Medical History: Coronary Artery Disease (CAD), Cancer, Chest Pain / Angina , Hyperlipidemia, Hypertension, Myocardial Infarction (non Q-wave), Osteoarthritis (OA), Thyroid Disorder Additional Past Medical History / Comment(s): Non small cell L upper lobe lung cancer-completed chemo/radiation and was to receive 3rd dose of immunotherapy today, arthritis multiple joints/back, chronic low back pain, asthma as a child , hypothyroid. Last Myocardial Infarction Date:: 2005 History of Any Multi-Drug Resistant Organisms: None Reported Past Surgical History: Adenoidectomy, Coronary Bypass/CABG, Heart Catheterization, Heart Catheterization With Stent, Tonsillectomy Additional Past Surgical History / Comment(s): L caratid endartectomy, PCI with multiple stents, 2005 CABG 3 vessels, colonoscopy, hemangioma removed from around mouth when a child Past Anesthesia/Blood Transfusion Reactions: No Reported Reaction, Motion Sickness Additional Past Anesthesia/Blood Transfusion Reaction / Comm: Daughter believes pt received blood with CABG surgery. Date of Last Stent Placement:: 2005 Past Psychological History: No Psychological Hx Reported Additional Psychological History / Comment(s): Pt resides with her Tracie cash. She normally uses a walker prn. 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 Daughter is home at all times and assists pt when needed. Smoking Status: Former smoker Past Alcohol Use History: None Reported Additional Past Alcohol Use History / Comment(s): Pt started smoking in 1962 and quit in 2015. Past Drug Use History: None Reported - Past Family History Father Family Medical History: Cancer Additional Family Medical History / Comment(s): Father had prostrate cancer. Mother Family Medical History: Respiratory Disorder Additional Family Medical History / Comment(s): Mother had lung disease. Medications and Allergies Home Medications Medication Instructions Recorded Confirmed Type Aspirin 81 mg PO DAILY 10/04/17 03/22/18 History Clopidogrel Bisulfate [Plavix] 75 mg PO DAILY 10/04/17 03/22/18 History Furosemide [Lasix] 20 mg PO DAILY PRN 10/04/17 03/22/18 History Levothyroxine Sodium [Synthroid] 175 mcg PO DAILY 10/04/17 03/22/18 History Losartan [Cozaar] 50 mg PO DAILY 10/04/17 03/22/18 History Metoprolol Tartrate 25 mg PO BID 10/04/17 03/22/18 History Allergies Allergy/AdvReac Type Severity Reaction Status Date / Time Penicillins Allergy Rash/Hives Verified 03/22/18 07:57 Physical Exam Vitals: Vital Signs Temp Pulse Resp BP Pulse Ox 03/24/18 18:00 80 17 112/82 99 03/24/18 17:00 74 18 112/82 96 03/24/18 16:00 98.7 F 71 23 112/82 98 03/24/18 15:00 76 23 99 03/24/18 14:00 65 16 99 03/24/18 13:00 73 25 H 142/65 100 03/24/18 12:00 98.8 F 72 27 H 137/68 97 03/24/18 11:00 74 23 140/72 97 03/24/18 10:00 82 27 H 117/66 99 03/24/18 09:00 78 22 133/104 99 03/24/18 08:00 99.0 F 87 27 H 116/64 98 03/24/18 07:00 77 20 123/60 97 03/24/18 06:00 75 18 111/64 96 03/24/18 05:00 77 19 114/55 98 03/24/18 04:00 97.9 F 80 18 107/64 98 03/24/18 03:00 74 19 128/77 96 03/24/18 02:00 78 19 116/71 98 03/24/18 01:00 99 17 111/61 99 03/24/18 00:00 97.8 F 98 20 118/70 99 03/23/18 23:00 98 18 110/68 98 03/23/18 22:24 94 19 110/68 97 03/23/18 22:00 97 19 93/54 97 Intake and Output 03/24/18 03/24/18 03/24/18 06:59 14:59 22:59 Intake Total 1451 1501 616.675 Output Total 720 715 394 Balance 731 786 222.675 Intake: IV 1350 1400 600 D5-0.45% NaCl with KCl 1200 1200 600 20Meq/l 1,000 ml @ 150 mls/hr IV .Q6H40M [facility] Rx# :[id number] Magnesium Sulfate-D5w Pmx 100 200 1 gm In Dextrose/Water 1 100ml.bag @ 100 mls/hr IVPB Q1H [facility] Rx#: [id number] cefTRIAXone 1,000 mg In 50 Sodium Chloride 0.9% 50 ml @ 100 mls/hr IVPB Q24H [facility] Rx#:[id number] Intake, IV Titration 101 101 16.675 Amount Insulin Regular 100 unit 101 101 16.675 In Sodium Chloride 0.9% 100 ml @ 0.1 UNITS/KG/HR 10.99 mls/hr IV .Q9H12M [facility] Rx#:[id number] Output: Urine 720 715 394 Other: Voiding Method Indwelling Catheter Indwelling Catheter Indwelling Catheter Weight 111.584 kg - Constitutional General appearance: average body habitus, cooperative, no acute distress - EENT Eyes: edentulous, EOMI, PERRLA ENT: hard of hearing, NA/AT, normal oropharynx - Cardiovascular Rhythm: irregularly irregular - Gastrointestinal General gastrointestinal: normal bowel sounds, soft - Integumentary Integumentary: pale - Neurologic Neurologic: CNII-XII intact - Musculoskeletal Musculoskeletal: gait normal, generalized weakness, strength equal bilaterally - Psychiatric Psychiatric: A&O x's 3, appropriate affect, intact judgment & insight Results CBC & Chem 7: 03/24/18 04:13 03/24/18 07:49 Labs: Abnormal Lab Results - Last 24 Hours (Table) 03/23/18 03/23/18 03/23/18 Range/Units 21:51 22:14 22:57 RBC (3.80-5.40) m/uL MCV (80.0-100.0) fL Plt Count (150-450) k/uL Lymphocytes # (1.0-4.8) k/uL PT (9.0-12.0) sec INR (<1.2) Chloride 121 H (98-107) mmol/L Carbon Dioxide 17 L (22-30) mmol/L BUN 20 H (7-17) mg/dL Glucose 136 H (74-99) mg/dL POC Glucose (mg/dL) 135 H 140 H (75-99) mg/dL Phosphorus (2.5-4.5) mg/dL 03/23/18 03/24/18 03/24/18 Range/Units 23:51 00:58 02:30 RBC (3.80-5.40) m/uL MCV (80.0-100.0) fL Plt Count (150-450) k/uL Lymphocytes # (1.0-4.8) k/uL PT (9.0-12.0) sec INR (<1.2) Chloride (98-107) mmol/L Carbon Dioxide (22-30) mmol/L BUN (7-17) mg/dL Glucose (74-99) mg/dL POC Glucose (mg/dL) 156 H 154 H 187 H (75-99) mg/dL Phosphorus (2.5-4.5) mg/dL 03/24/18 03/24/18 03/24/18 Range/Units 04:13 04:13 04:13 RBC 3.50 L (3.80-5.40) m/uL MCV 101.6 H (80.0-100.0) fL Plt Count 90 L (150-450) k/uL Lymphocytes # 0.5 L (1.0-4.8) k/uL PT 12.4 H (9.0-12.0) sec INR 1.3 H (<1.2) Chloride 120 H (98-107) mmol/L Carbon Dioxide 15 L (22-30) mmol/L BUN 18 H (7-17) mg/dL Glucose 227 H (74-99) mg/dL POC Glucose (mg/dL) (75-99) mg/dL Phosphorus (2.5-4.5) mg/dL 03/24/18 03/24/18 03/24/18 Range/Units 04:25 04:52 06:14 RBC (3.80-5.40) m/uL MCV (80.0-100.0) fL Plt Count (150-450) k/uL Lymphocytes # (1.0-4.8) k/uL PT (9.0-12.0) sec INR (<1.2) Chloride (98-107) mmol/L Carbon Dioxide (22-30) mmol/L BUN (7-17) mg/dL Glucose (74-99) mg/dL POC Glucose (mg/dL) 223 H 225 H 259 H (75-99) mg/dL Phosphorus (2.5-4.5) mg/dL 03/24/18 03/24/18 03/24/18 Range/Units 07:00 07:49 09:03 RBC (3.80-5.40) m/uL MCV (80.0-100.0) fL Plt Count (150-450) k/uL Lymphocytes # (1.0-4.8) k/uL PT (9.0-12.0) sec INR (<1.2) Chloride 118 H (98-107) mmol/L Carbon Dioxide 15 L (22-30) mmol/L BUN (7-17) mg/dL Glucose 269 H (74-99) mg/dL POC Glucose (mg/dL) 237 H 302 H (75-99) mg/dL Phosphorus 2.3 L (2.5-4.5) mg/dL 03/24/18 03/24/18 03/24/18 Range/Units 10:16 11:20 14:25 RBC (3.80-5.40) m/uL MCV (80.0-100.0) fL Plt Count (150-450) k/uL Lymphocytes # (1.0-4.8) k/uL PT (9.0-12.0) sec INR (<1.2) Chloride (98-107) mmol/L Carbon Dioxide (22-30) mmol/L BUN (7-17) mg/dL Glucose (74-99) mg/dL POC Glucose (mg/dL) 304 H 250 H 125 H (75-99) mg/dL Phosphorus (2.5-4.5) mg/dL 03/24/18 03/24/18 03/24/18 Range/Units 16:55 18:30 19:40 RBC (3.80-5.40) m/uL MCV (80.0-100.0) fL Plt Count (150-450) k/uL Lymphocytes # (1.0-4.8) k/uL PT (9.0-12.0) sec INR (<1.2) Chloride (98-107) mmol/L Carbon Dioxide (22-30) mmol/L BUN (7-17) mg/dL Glucose (74-99) mg/dL POC Glucose (mg/dL) 105 H 203 H 261 H (75-99) mg/dL Phosphorus (2.5-4.5) mg/dL 03/24/18 Range/Units 21:19 RBC (3.80-5.40) m/uL MCV (80.0-100.0) fL Plt Count (150-450) k/uL Lymphocytes # (1.0-4.8) k/uL PT (9.0-12.0) sec INR (<1.2) Chloride (98-107) mmol/L Carbon Dioxide (22-30) mmol/L BUN (7-17) mg/dL Glucose (74-99) mg/dL POC Glucose (mg/dL) 249 H (75-99) mg/dL Phosphorus (2.5-4.5) mg/dL Microbiology - Last 24 Hours (Table) 03/22/18 08:10 Blood Culture Gram Stain - Preliminary Blood Blood Culture - Preliminary Alpha Hemolytic Streptococcus Alpha Hemolytic Streptococcus#2 Coagulase Negative Staph 03/23/18 00:49 Blood Culture - Preliminary Blood No Growth after 24 hours 03/22/18 15:17 Urine Culture - Final Urine,Catheterized Assessment and Plan Plan: Assessment and Recs: 1. 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 New Onset Diabetes with Diabetic Ketoacidosis - Per ICU Team Insulin drip and close monitoring - Onset of DM has been reported in 0.2% of cases undergoing tx with 3. New Onset Atrial Fibrillation with RVR: - Per ICU Team 4. Thrombocytopenia: On Admission 184, today 90. - CBC in am, monitor - Unknown Etiology - Recheck COags Immunotherapy potential contributions to endocrinopathies: - Will Assess for the following: Most likely Etiology of new onset Diabetes possible contributing factor of Immune Therapy - Treatment is Insulin control without treatment with corticosteroids, in case reports patients required insulin for continued glycemic control. Other Resonable to assess - Less Likely - Adrenal Insufficiency - Check ACTH and Cortisol Levels - Hypophysitis: Prolactin level, - Primary Hypothyroid versus Adrenal Insufficiency: will work-up to differentiate if relation between Primary Adrenal Insufficiency (low cortisol, high ACTH) versus primary Hypothyroidism (TSH, Free T4), check T3 - Pancreatitis: Amylase, Lipase - Cardiovascular Toxicities - Per Cardiology Physician Attestation: I have completed the full history and physical of this patient and agree with above dictation by Tracie Yu NP. DIctated as a scribe
[2018-03-25 00:05] LABS: Glucose,Whole Blood 330 mg/dL (75-99)
[2018-03-25 01:24] LABS: Glucose,Whole Blood 309 mg/dL (75-99)
[2018-03-25] MEDS: INSULIN ASPART 100 UNIT/ML 1 ML 10 ML VIAL SQ SCH ×7 (01:25→21:42)
[2018-03-25] MEDS: INSULIN REGULAR 100 UNIT in SODIUM CHLORIDE 0.9% 100 ML IV SCH (02:39)
[2018-03-25 04:31] LABS: Glucose,Whole Blood 250 mg/dL (75-99)
--- NOTE | 2018-03-25 06:27 | XR ---
EXAMINATION TYPE: XR chest 1V portable DATE OF EXAM: 03/25/2018 HISTORY: ongoing cardiopulmonary issues. REFERENCE: Previous study dated 03/24/2018. FINDINGS: There has been a midline sternotomy. The heart is enlarged. The lungs appear clear. I suspe ct small, bilateral effusions. IMPRESSION: 1. MILD CARDIOMEGALY. 2. I CANNOT EXCLUDE SMALL, BILATERAL EFFUSIONS.
[2018-03-25 06:34] LABS: Amylase <30 U/L (30-110); Anion Gap 6 mmol/L; Blood Urea Nitrogen 11 mg/dL (7-17); Calcium 9.2 mg/dL (8.4-10.2); Carbon Dioxide 18 mmol/L (22-30); Chloride 116 mmol/L (98-107); Glucose 257 mg/dL (74-99); Lipase 162 U/L (23-300); Phosphorus 2.5 mg/dL (2.5-4.5); Potassium 4.6 mmol/L (3.5-5.1); Sodium 140 mmol/L (137-145)
[2018-03-25 06:38] LABS: INR 1.2 (<1.2); Partial Thromboplastin Time 28.7 sec (22.0-30.0); Prothrombin Time 11.6 sec (9.0-12.0)
[2018-03-25] MEDS: D5-0.45% NACL WITH KCL 20MEQ/L 1,000 ML IV SCH (06:38)
[2018-03-25 06:39] LABS: Basophils % (A) 0 %; Eosinophils % (A) 0 %; HCT 37.5 % (34.0-46.0); HGB 11.9 gm/dL (11.4-16.0); Hypochromasia Slight; Lymphocytes # (A) 0.5 k/uL (1.0-4.8); Lymphocytes % (A) 12 %; MCH 32.2 pg (25.0-35.0); MCHC 31.7 g/dL (31.0-37.0); MCV 101.6 fL (80.0-100.0); Mean Platelet Volume 8.1; Monocytes # (A) 0.2 k/uL (0-1.0); Monocytes % (A) 5 %; Neutrophils # (A) 3.3 k/uL (1.3-7.7); Neutrophils % (A) 81 %; Platelet Count 121 k/uL (150-450); RBC 3.69 m/uL (3.80-5.40); RDW 13.1 % (11.5-15.5)
[2018-03-25 06:51] LABS: T4, Free (Free Thyroxine) 2.25 ng/dL (0.78-2.19)
[2018-03-25 07:30] LABS: Glucose,Whole Blood 228 mg/dL (75-99)
[2018-03-25] MEDS: DILTIAZEM 50 MG in SODIUM CHLORIDE 0.9% 40 ML IV SCH (08:37)
[2018-03-25] MEDS: DOCUSATE 100 MG CAP PO SCH ×2 (10:01→21:42)
[2018-03-25] MEDS: METOPROLOL TARTRATE 25 MG TAB PO SCH ×2 (10:01→21:42)
[2018-03-25] MEDS: CLOPIDOGREL 75 MG TAB PO SCH (10:01)
[2018-03-25] MEDS: PANTOPRAZOLE 40 MG/10 ML VIAL IV SCH (10:02)
[2018-03-25] MEDS: LOSARTAN 50 MG TAB PO SCH (10:02)
[2018-03-25] MEDS: RIVAROXABAN 15 MG TAB PO SCH (10:02)
--- NOTE | 2018-03-25 10:16 | P.PN ---
Subjective Progress Note Date: 03/25/18 This is a 72-year-old female who was admitted to the hospital with diabetic ketoacidosis, atrial fibrillation with rapid ventricular response and possible sepsis. Patient's heart rate is better controlled. Patient is on her IV Cardizem drip along with the metoprolol. Her heart rate is in the 70s. Blood pressures of 130/78. Chest x-ray showed borderline cardiac megaly. Lab values showed normal white count. BUN and creatinine are improving. 03/25/2018: This 72-year-old female is admitted with diabetic ketoacidosis, atrial fibrillation and also non-STEMI. Her echo Cardigan showed an ejection fraction of 30-35%. Patient is back in sinus rhythm. She is feeling much better. Lungs are clear. Heart is regular. She is off Cardizem. She is on metoprolol 25 mg by mouth twice a day. I may increase the dose to 3 times a day. We have discussed with oncologist regarding possible cardiac catheterization or conservative management. Increase activity as tolerated. May repeat the echocardiogram to reassess the LV function. Objective - Vital Signs Vital signs: Vital Signs Temp 97.8 F 03/25/18 08:00 Pulse 72 03/25/18 09:00 Resp 19 03/25/18 09:00 BP 154/98 03/25/18 09:00 Pulse Ox 96 03/25/18 09:00 Intake & Output 03/24/18 03/25/18 03/25/18 18:59 06:59 18:59 Intake Total 2101 966.675 150 Output Total 1109 1645 295 Balance 992 -678.325 -145 Weight 112.1 kg Intake: IV 2000 950 150 D5-0.45% NaCl with KCl 1800 900 150 20Meq/l 1,000 ml @ 50 mls /hr IV .Q20H [facility] Rx#: [id number] Magnesium Sulfate-D5w Pmx 200 1 gm In Dextrose/Water 1 100ml.bag @ 100 mls/hr IVPB Q1H [facility] Rx#: [id number] cefTRIAXone 1,000 mg In 50 Sodium Chloride 0.9% 50 ml @ 100 mls/hr IVPB Q24H [facility] Rx#:[id number] Intake, IV Titration 101 16.675 Amount Insulin Regular 100 unit 101 16.675 In Sodium Chloride 0.9% 100 ml @ 0.1 UNITS/KG/HR 10.99 mls/hr IV .Q9H12M [facility] Rx#:[id number] Output: Urine 1109 1645 295 Other: Voiding Method Indwelling Catheter Indwelling Catheter Indwelling Catheter - Exam GENERAL EXAM: Patient is alert HEENT: Normocephalic. Normal reaction of pupils, equal size, normal range of extraocular motion. No erythema or exudates in the throat. NECK: No masses, no nuchal rigidity. CHEST: No chest wall deformity. LUNGS: Equal air entry with no crackles or wheeze. HEART: S1 and S2 normal with no audible mumurs or gallops. Regular rhythm, femorals equal on both sides.. ABDOMEN: No hepatosplenomegaly, normal bowel sounds, no guarding or rigidity. SKIN: No rashes CENTRAL NERVOUS SYSTEM: No focal deficits. EXTREMITIES: No cyanosis, clubbing or edema. - Labs CBC & Chem 7: 03/25/18 05:48 03/25/18 05:48 Labs: Abnormal Lab Results - Last 24 Hours (Table) 03/24/18 03/24/18 03/24/18 Range/Units 10:16 11:20 14:25 RBC (3.80-5.40) m/uL MCV (80.0-100.0) fL Plt Count (150-450) k/uL Lymphocytes # (1.0-4.8) k/uL INR (<1.2) Chloride (98-107) mmol/L Carbon Dioxide (22-30) mmol/L Glucose (74-99) mg/dL POC Glucose (mg/dL) 304 H 250 H 125 H (75-99) mg/dL Amylase (30-110) U/L Free T4 (0.78-2.19) ng/dL 03/24/18 03/24/18 03/24/18 Range/Units 16:55 18:30 19:40 RBC (3.80-5.40) m/uL MCV (80.0-100.0) fL Plt Count (150-450) k/uL Lymphocytes # (1.0-4.8) k/uL INR (<1.2) Chloride (98-107) mmol/L Carbon Dioxide (22-30) mmol/L Glucose (74-99) mg/dL POC Glucose (mg/dL) 105 H 203 H 261 H (75-99) mg/dL Amylase (30-110) U/L Free T4 (0.78-2.19) ng/dL 03/24/18 03/24/18 03/25/18 Range/Units 21:19 23:49 01:20 RBC (3.80-5.40) m/uL MCV (80.0-100.0) fL Plt Count (150-450) k/uL Lymphocytes # (1.0-4.8) k/uL INR (<1.2) Chloride (98-107) mmol/L Carbon Dioxide (22-30) mmol/L Glucose (74-99) mg/dL POC Glucose (mg/dL) 249 H 330 H 309 H (75-99) mg/dL Amylase (30-110) U/L Free T4 (0.78-2.19) ng/dL 03/25/18 03/25/18 03/25/18 Range/Units 04:16 05:48 05:48 RBC 3.69 L (3.80-5.40) m/uL MCV 101.6 H (80.0-100.0) fL Plt Count 121 L (150-450) k/uL Lymphocytes # 0.5 L (1.0-4.8) k/uL INR (<1.2) Chloride 116 H (98-107) mmol/L Carbon Dioxide 18 L (22-30) mmol/L Glucose 257 H (74-99) mg/dL POC Glucose (mg/dL) 250 H (75-99) mg/dL Amylase <30 L (30-110) U/L Free T4 2.25 H (0.78-2.19) ng/dL 03/25/18 03/25/18 Range/Units 05:48 07:04 RBC (3.80-5.40) m/uL MCV (80.0-100.0) fL Plt Count (150-450) k/uL Lymphocytes # (1.0-4.8) k/uL INR 1.2 H (<1.2) Chloride (98-107) mmol/L Carbon Dioxide (22-30) mmol/L Glucose (74-99) mg/dL POC Glucose (mg/dL) 228 H (75-99) mg/dL Amylase (30-110) U/L Free T4 (0.78-2.19) ng/dL Microbiology - Last 24 Hours (Table) 03/22/18 08:10 Blood Culture Gram Stain - Final Blood Blood Culture - Final Alpha Hemolytic Streptococcus Alpha Hemolytic Streptococcus#2 Coagulase Negative Staph 03/23/18 00:49 Blood Culture - Preliminary Blood No Growth after 48 hours Assessment and Plan (1) CHF (congestive heart failure) Current Visit: Yes Status: Acute Code(s): I50.9 - HEART FAILURE, UNSPECIFIED SNOMED Code(s): 39010786 (2) DKA (diabetic ketoacidoses) Current Visit: Yes Status: Acute Code(s): E13.10 - OTH DIABETES MELLITUS WITH KETOACIDOSIS WITHOUT COMA SNOMED Code(s): 410056686 (3) Rapid atrial fibrillation Current Visit: Yes Status: Acute Code(s): I48.91 - UNSPECIFIED ATRIAL FIBRILLATION SNOMED Code(s): 051079872 (4) Renal insufficiency syndrome Current Visit: Yes Status: Acute Code(s): N28.9 - DISORDER OF KIDNEY AND URETER, UNSPECIFIED SNOMED Code(s): 917899127 (5) Non-STEMI (non-ST elevated myocardial infarction) Current Visit: Yes Status: Acute Code(s): I21.4 - NON-ST ELEVATION (NSTEMI) MYOCARDIAL INFARCTION SNOMED Code(s): 845203755 Plan: Continue current medical therapy. Increase the dose of the beta lucila for necessary. Repeat echocardiogram to assess LV function after conversion to sinus rhythm. Further recommendations to follow
--- NOTE | 2018-03-25 10:45 | P.PN ---
Subjective Progress Note Date: 03/25/18 Principal diagnosis: Acute Onset DKA Feeling better Objective - Vital Signs Vital signs: Vital Signs Temp 97.8 F 03/25/18 08:00 Pulse 72 03/25/18 09:00 Resp 19 03/25/18 09:00 BP 154/98 03/25/18 09:00 Pulse Ox 96 03/25/18 09:00 Intake & Output 03/24/18 03/25/18 03/25/18 18:59 06:59 18:59 Intake Total 2101 966.675 150 Output Total 1109 1645 295 Balance 992 -678.325 -145 Weight 112.1 kg Intake: IV 2000 950 150 D5-0.45% NaCl with KCl 1800 900 150 20Meq/l 1,000 ml @ 50 mls /hr IV .Q20H [facility] Rx#: [id number] Magnesium Sulfate-D5w Pmx 200 1 gm In Dextrose/Water 1 100ml.bag @ 100 mls/hr IVPB Q1H [facility] Rx#: [id number] cefTRIAXone 1,000 mg In 50 Sodium Chloride 0.9% 50 ml @ 100 mls/hr IVPB Q24H [facility] Rx#:[id number] Intake, IV Titration 101 16.675 Amount Insulin Regular 100 unit 101 16.675 In Sodium Chloride 0.9% 100 ml @ 0.1 UNITS/KG/HR 10.99 mls/hr IV .Q9H12M [facility] Rx#:[id number] Output: Urine 1109 1645 295 Other: Voiding Method Indwelling Catheter Indwelling Catheter Indwelling Catheter - Exam - Constitutional General appearance: average body habitus, cooperative, no acute distress - EENT Eyes: edentulous, EOMI, PERRLA ENT: hard of hearing, NA/AT, normal oropharynx - Cardiovascular Rhythm: irregularly irregular - Gastrointestinal General gastrointestinal: normal bowel sounds, soft - Integumentary Integumentary: pale - Neurologic Neurologic: CNII-XII intact - Musculoskeletal Musculoskeletal: gait normal, generalized weakness, strength equal bilaterally - Psychiatric Psychiatric: A&O x's 3, appropriate affect, intact judgment & insight - Labs CBC & Chem 7: 03/25/18 05:48 03/25/18 05:48 Labs: Abnormal Lab Results - Last 24 Hours (Table) 03/24/18 03/24/18 03/24/18 Range/Units 11:20 14:25 16:55 RBC (3.80-5.40) m/uL MCV (80.0-100.0) fL Plt Count (150-450) k/uL Lymphocytes # (1.0-4.8) k/uL INR (<1.2) Chloride (98-107) mmol/L Carbon Dioxide (22-30) mmol/L Glucose (74-99) mg/dL POC Glucose (mg/dL) 250 H 125 H 105 H (75-99) mg/dL Amylase (30-110) U/L Free T4 (0.78-2.19) ng/dL 03/24/18 03/24/18 03/24/18 Range/Units 18:30 19:40 21:19 RBC (3.80-5.40) m/uL MCV (80.0-100.0) fL Plt Count (150-450) k/uL Lymphocytes # (1.0-4.8) k/uL INR (<1.2) Chloride (98-107) mmol/L Carbon Dioxide (22-30) mmol/L Glucose (74-99) mg/dL POC Glucose (mg/dL) 203 H 261 H 249 H (75-99) mg/dL Amylase (30-110) U/L Free T4 (0.78-2.19) ng/dL 03/24/18 03/25/18 03/25/18 Range/Units 23:49 01:20 04:16 RBC (3.80-5.40) m/uL MCV (80.0-100.0) fL Plt Count (150-450) k/uL Lymphocytes # (1.0-4.8) k/uL INR (<1.2) Chloride (98-107) mmol/L Carbon Dioxide (22-30) mmol/L Glucose (74-99) mg/dL POC Glucose (mg/dL) 330 H 309 H 250 H (75-99) mg/dL Amylase (30-110) U/L Free T4 (0.78-2.19) ng/dL 03/25/18 03/25/18 03/25/18 Range/Units 05:48 05:48 05:48 RBC 3.69 L (3.80-5.40) m/uL MCV 101.6 H (80.0-100.0) fL Plt Count 121 L (150-450) k/uL Lymphocytes # 0.5 L (1.0-4.8) k/uL INR 1.2 H (<1.2) Chloride 116 H (98-107) mmol/L Carbon Dioxide 18 L (22-30) mmol/L Glucose 257 H (74-99) mg/dL POC Glucose (mg/dL) (75-99) mg/dL Amylase <30 L (30-110) U/L Free T4 2.25 H (0.78-2.19) ng/dL 03/25/18 Range/Units 07:04 RBC (3.80-5.40) m/uL MCV (80.0-100.0) fL Plt Count (150-450) k/uL Lymphocytes # (1.0-4.8) k/uL INR (<1.2) Chloride (98-107) mmol/L Carbon Dioxide (22-30) mmol/L Glucose (74-99) mg/dL POC Glucose (mg/dL) 228 H (75-99) mg/dL Amylase (30-110) U/L Free T4 (0.78-2.19) ng/dL Microbiology - Last 24 Hours (Table) 03/22/18 08:10 Blood Culture Gram Stain - Final Blood Blood Culture - Final Alpha Hemolytic Streptococcus Alpha Hemolytic Streptococcus#2 Coagulase Negative Staph 03/23/18 00:49 Blood Culture - Preliminary Blood No Growth after 48 hours Assessment and Plan Plan: Assessment and Recs: 1. 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 New Onset Diabetes with Diabetic Ketoacidosis - Per ICU Team Insulin drip and close monitoring - Onset of DM has been reported in 0.2% of cases undergoing tx with 3. New Onset Atrial Fibrillation with RVR: - Per ICU Team 4. Thrombocytopenia: On Admission 184, then 90. - CBC in am, monitor - Unknown Etiology - Recheck COags - improved to 121 5. Hypothyroid - TSH in ofice 03/02/18 = 41, er synthroid increased to 225mcg, restarted today Immunotherapy potential contributions to endocrinopathies: - Will Assess for the following: Most likely Etiology of new onset Diabetes possible contributing factor of Immune Therapy - Treatment is Insulin control without treatment with corticosteroids, in case reports patients required insulin for continued glycemic control. Other Resonable to assess - Less Likely - Adrenal Insufficiency - Check ACTH and Cortisol Levels - Hypophysitis: Prolactin level, - Primary Hypothyroid versus Adrenal Insufficiency: will work-up to differentiate if relation between Primary Adrenal Insufficiency (low cortisol, high ACTH) versus primary Hypothyroidism (TSH, Free T4), check T3 - Pancreatitis: Amylase, Lipase - Cardiovascular Toxicities - Per Cardiology All above labs resulted have been rviewed, no significant finding, Likely acute/ new onset DKA second Immune checkpoint inhibitor requiring insulin control ongoing Physician Attestation: I have completed the full history and physical of this patient and agree with above dictation by Tracie Yu NP. DIctated as a scribe
[2018-03-25] MEDS: LEVOTHYROXINE 112 MCG TAB PO SCH (12:16)
[2018-03-25 12:23] LABS: Glucose,Whole Blood 201 mg/dL (75-99)
--- NOTE | 2018-03-25 14:40 | P.PN ---
Subjective Progress Note Date: 03/25/18 This is a 72-year-old female patient, known history of non-small cell lung cancer locally advanced post chemoradiation therapy with favorable response. The patient is also known to have coronary artery disease and she underwent coronary artery bypass surgery 2005. No previous history of diabetes mellitus. She presented to the hospital because of rapid onset confusion did involved over the past 24 hours. The patient was having excessive urination and dry mouth. She was also getting progressively more weak, lethargic, altered mentation and she arrived to the emergency department and her blood work was typical of an acute DKA with anion gap metabolic acidosis and a serum bicarb of less than 5 and positive acetone. Her initial blood sugar was above 800. The patient was also found to be in atrial fibrillation with rapid ventricular response. Her BNP level was 3720. First set of troponin was at 0.24. She was started on a Cardizem drip for rate control. She was given 2 L of IV fluids and she was started on insulin drip which is currently running at 10 units an hour. She got she has had to the intensive care unit. Anatomical my evaluation, the patient was much more alert and awake. She was following commands and answering questions appropriately. He denied having any chest pain. She denied any any cough or sputum production. No fever or chills. She is not known to have diabetes mellitus. She has been taken Imfinzi , immunotherapy, regarding her non-small cell lung cancer. No dysuria frequency or urgency. Some vague abdominal discomfort which ultimately recovered. No abdominal distention. No emesis. No pleurisy. No hemoptysis. Chest x-ray shows no acute abnormalities. Cardiology is on the case. Echocardiac Rommel was done and the patient was found to have an ejection fraction of 30-35% along with global hypokinesis. In regards to her atrial fibrillation, the patient is currently on Cardizem drip for rate control. In regards to her pulmonary status,, I diagnosed this patient with stage III non -small cell lung cancer. She was not found to be a surgical candidate. She was referred to chemoradiation therapy. She completed the radiation rounds November 2017 with some shortness of breath and radiation his esophagitis which ultimately recovered. She was also fatigued during the time of treatment. She also received systemic chemotherapy and she has completed the treatment. Follow- up PET/CT was done on 01/27/2018 and the findings showed positive treatment response with diminished size of the left suprahilar mass currently measuring 12 x 11 mm in size and there is also diminished in metabolic activity with an SUV of 5.43 compared to 9.1. No new areas of abnormal metabolic activity. The patient was seen by Dr. Hubert Brown for a surgical consultation and the patient was not found to be in adequate surgical candidate because of her underlying lung function and location of the mass that would ultimately need an pneumonectomy which is not possible in this situation. Based on all this, the patient was started on immunotherapy and the patient is receiving Imfinzi On 03/23/2018 patient seen in follow-up in the intensive care unit, she is awake and alert, in no acute distress, no shortness of breath or chest pain. Remains in A. fib, the rate is better controlled, and it's ranging from 93-103 BPM. Levo fed has been on hold since 7:00 this morning. Patient remains on Cardizem drip currently at 5 mg per hour, maintenance IV fluids D5 half-normal saline with 20 in the care of potassium at 150 ML per hour. Insulin drip is currently at 2.5 units per hour. This morning's blood work has been reviewed and showed WBC of 11.3, hemoglobin is 12.4, anion gap has closed and at 8, chloride is 123, CO2 is 12, BUN is 35 and creatinine is 1.2. This morning his troponin is 34.7. She has been evaluated by cardiology, and once the patient is stabilized the plan is for possible heart catheterization. Urine and blood cultures remain negative. Today's chest x-ray has been reviewed, and shows overall stable findings, On 03/24/2018, the patient is feeling well and she has no specific complaints. No respiratory distress. She is coming off the insulin drip. This morning she was on 2.5 Units of insulin drip and the plan was to switch this patient to Lantus insulin in the evening. Her anion gap metabolic acidosis closed and the serum bicarb is still at 15. The most recent blood sugar is 105. As for the atrial fibrillation, the issue and has converted to normal sinus rhythm and she is currently on a combination of Xarelto for long-term anticoagulation, and oral metoprolol. The patient has no chest pain. Cardiology also evaluated this patient and lisinopril got also added to her regimen. Troponin is declining is down to 34.7. Otherwise, there has been no other significant events overnight. The patient is resting comfortably for now. On 03/25/2018, seeing this patient for the follow-up. The patient is doing extremely well. No complaints for now. No chest pain. No shortness of breath. Cardiac rhythm is sinus. The patient was taken off the insulin drip and the patient is currently on Lantus insulin 30 units along with a sliding scale coverage. Blood sugars remain somewhat elevated yet the patient's anion gap metabolic acidosis completely recovered. Anion gap is at 6 and a serum bicarb is at 18. No fever. No chills. No chest pain. No other new complaints otherwise for now. Objective - Vital Signs Vital signs: Vital Signs Temp 97.8 F 03/25/18 08:00 Pulse 80 03/25/18 13:00 Resp 15 03/25/18 13:00 BP 137/70 03/25/18 13:00 Pulse Ox 97 03/25/18 13:00 Intake & Output 03/24/18 03/25/18 03/25/18 18:59 06:59 18:59 Intake Total 2101 966.675 250 Output Total 1109 1645 935 Balance 992 -678.325 -685 Weight 112.1 kg Intake: IV 2000 950 250 0.9 100 D5-0.45% NaCl with KCl 1800 900 150 20Meq/l 1,000 ml @ 50 mls /hr IV .Q20H [facility] Rx#: [id number] Magnesium Sulfate-D5w Pmx 200 1 gm In Dextrose/Water 1 100ml.bag @ 100 mls/hr IVPB Q1H [facility] Rx#: [id number] cefTRIAXone 1,000 mg In 50 Sodium Chloride 0.9% 50 ml @ 100 mls/hr IVPB Q24H [facility] Rx#:[id number] Intake, IV Titration 101 16.675 Amount Insulin Regular 100 unit 101 16.675 In Sodium Chloride 0.9% 100 ml @ 0.1 UNITS/KG/HR 10.99 mls/hr IV .Q9H12M [facility] Rx#:[id number] Output: Urine 1109 1645 935 Other: Voiding Method Indwelling Catheter Indwelling Catheter Indwelling Catheter - Exam General Appearance no diaphoresis, awake and alert and there is no focal neurological deficit and awake and alert. Head exam was generally normal. There was no scleral icterus or corneal arcus. Mucous membranes were moist. Neck was supple and without jugular venous distension, thyromegaly, or carotid bruits. Carotids were easily palpable bilaterally. There was no adenopathy. Chest no barrel chest, no retractions, no sternocleidomastoid muscle contractions, no supraclavicular retractions, no intercostal retractions, no prolonged expiratory wheezing, no decreased air movement, no rhonchi, no hyperinflation, (normal) adventitious sounds: diminished breath sounds Heart no right ventricular heave, no distant heart sounds, no s3 gallop, (normal ) jugular vein: jugular venous distention: by 0cm, (normal) jugular vein, Murmurs: Unspecified Location: Systolic: Grade 3 / IV, she is in normal sinus rhythm for now and the S1 and S2 are both regular. GI bowel sounds: hyperactive (borborygmi), bowel sounds: diminished or absent Extremities no cyanosis, no clubbing, no edema Neurologic the patient is moving all 4 extremities without any limitation. No focal neurological deficit. - Labs CBC & Chem 7: 03/25/18 05:48 03/25/18 05:48 Labs: Abnormal Lab Results - Last 24 Hours (Table) 03/24/18 03/24/18 03/24/18 Range/Units 16:55 18:30 19:40 RBC (3.80-5.40) m/uL MCV (80.0-100.0) fL Plt Count (150-450) k/uL Lymphocytes # (1.0-4.8) k/uL INR (<1.2) Chloride (98-107) mmol/L Carbon Dioxide (22-30) mmol/L Glucose (74-99) mg/dL POC Glucose (mg/dL) 105 H 203 H 261 H (75-99) mg/dL Amylase (30-110) U/L Free T4 (0.78-2.19) ng/dL 03/24/18 03/24/18 03/25/18 Range/Units 21:19 23:49 01:20 RBC (3.80-5.40) m/uL MCV (80.0-100.0) fL Plt Count (150-450) k/uL Lymphocytes # (1.0-4.8) k/uL INR (<1.2) Chloride (98-107) mmol/L Carbon Dioxide (22-30) mmol/L Glucose (74-99) mg/dL POC Glucose (mg/dL) 249 H 330 H 309 H (75-99) mg/dL Amylase (30-110) U/L Free T4 (0.78-2.19) ng/dL 03/25/18 03/25/18 03/25/18 Range/Units 04:16 05:48 05:48 RBC 3.69 L (3.80-5.40) m/uL MCV 101.6 H (80.0-100.0) fL Plt Count 121 L (150-450) k/uL Lymphocytes # 0.5 L (1.0-4.8) k/uL INR (<1.2) Chloride 116 H (98-107) mmol/L Carbon Dioxide 18 L (22-30) mmol/L Glucose 257 H (74-99) mg/dL POC Glucose (mg/dL) 250 H (75-99) mg/dL Amylase <30 L (30-110) U/L Free T4 2.25 H (0.78-2.19) ng/dL 03/25/18 03/25/18 03/25/18 Range/Units 05:48 07:04 12:19 RBC (3.80-5.40) m/uL MCV (80.0-100.0) fL Plt Count (150-450) k/uL Lymphocytes # (1.0-4.8) k/uL INR 1.2 H (<1.2) Chloride (98-107) mmol/L Carbon Dioxide (22-30) mmol/L Glucose (74-99) mg/dL POC Glucose (mg/dL) 228 H 201 H (75-99) mg/dL Amylase (30-110) U/L Free T4 (0.78-2.19) ng/dL Microbiology - Last 24 Hours (Table) 03/22/18 08:10 Blood Culture Gram Stain - Final Blood Blood Culture - Final Alpha Hemolytic Streptococcus Alpha Hemolytic Streptococcus#2 Coagulase Negative Staph 03/23/18 00:49 Blood Culture - Preliminary Blood No Growth after 48 hours Assessment and Plan Plan: Assessment 1 acute DKA with anion gap metabolic acidosis and positive acetone and the patient who does not have history of diabetes mellitus. 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 The patient has recovered from the acute DKA with closure of the anion gap and patient is currently on Lantus insulin 30 units in addition to that at unit of NovoLog insulin will be scheduled with meals and a sliding scale coverage. 2 new onset atrial fibrillation with rapid ventricular response, treated and the patient converted to a normal sinus rhythm 3 CHF with an ejection fraction of 30-35% and global hypokinesis, compensated for now 4 coronary artery disease with previous bypass surgery in 2005, status post acute non-ST segment elevation myocardial infarction 5 non-small cell lung cancer, the patient was diagnosed having stage IIIB non- small cell lung cancer. She was treated with a combination of chemoradiation therapy. She had favorable response. She was considered for surgical resection and she was seen by Dr. Hubert Brown and she was labeled to be a nonsurgical candidate due to her borderline lung function and the tumor location. The patient's baseline FEV1 was 60% of predicted. Based on this, the patient was started on PDL1 antagonist, immunotherapy, Imfinzi, and she has already received 3 cycles of this systemic treatment. 6 chronic dyspnea secondary to above, recovered and the chest x-ray is within normal limits 7 obesity BMI 40.5 8 acute kidney injury secondary to intravascular volume depletion/DKA, recovered Plan Transfer this patient to [facility] with telemetry. Continue Lantus 30 units a day. Continue NovoLog 8 units with meals. Sized. Insulin coverage. Medications are all up-to-date. Advance diet. Increased level of activity. We 'll continue to follow.
[2018-03-25 17:45] LABS: Glucose,Whole Blood 115 mg/dL (75-99)
[2018-03-25 20:44] LABS: Glucose,Whole Blood 221 mg/dL (75-99)
[2018-03-25] MEDS: INSULIN DETEMIR 100 UNIT/ML 10 ML VIAL SQ SCH (21:42)
--- NOTE | 2018-03-26 01:44 | P.PN ---
Subjective Progress Note Date: 03/24/18 Principal diagnosis: New onset diabetic ketoacidosis A. fib with RVR Patient is a 72-year-old female with a known history of coronary artery disease , CABG and also stent placement, non-small cell lung cancer diagnosed in September 2017 status post chemotherapy and radiation, currently on immunotherapy presented to ER with complaints of dizziness and weakness worsening for the past 1 day. Patient also having excessive urination and became progressively weak and lethargic. Patient was brought to the hospital by her daughter. Patient was found to be in acute DKA with a acetone positive and bicarb less than 5. Initial blood sugar is greater than 800. Patient was also found to be in atrial fibrillation with rapid regular rate. Patient is currently in the MICU. patient is on Cardizem drip as well as insulin drip. Patient does not have any history of diabetes in the past. Patient denied any fever or chills. No couplets abdominal pain. No nausea vomiting. Chest x-ray showed no acute cardiopulmonary process. EKG showed Atrial fibrillation with rapid ventricular rate 2-D echocardiogram was done showed ejection fraction 30-35% with global hypokinesis. Troponin 0.246 BNP 3720 Date 03/23/2018 Patient is more awake and oriented today. Says that she feels much better today. Anion gap closed. Bicarb is still at 14. Patient otherwise remains in atrial fibrillation. Rate is fairly controlled. Patient became hypotensive and was started on Levophed drip. Continued on insulin drip. Patient was found have elevated troponin level at 34, trending down from 63 yesterday. Cardiology is planning for catheterization once patient is clinically stable. Cultures have been negative. Chest x-ray showed overall stable findings. Without suspicion for any infiltrate. On 03/24/2018 Patient denied any complaints of chest pain or shortness breath. Patient is being continued on insulin drip. Current level is 15. Will be transitioned to Lantus today. Patient is converted to sinus rhythm now. Continued on metoprolol and xarelto. Cardiology and pulmonary is following. Troponin is trending down. Otherwise no fever no chills. No nausea vomiting or abdominal pain. Tolerating oral diet. Current medications reviewed. Objective - Vital Signs Vital signs: Vital Signs Temp 98.7 F 03/24/18 16:00 Pulse 74 03/24/18 17:00 Resp 18 03/24/18 17:00 BP 112/82 03/24/18 17:00 Pulse Ox 96 03/24/18 17:00 Intake & Output 03/23/18 03/24/18 03/24/18 18:59 06:59 18:59 Intake Total 2884.00 2551 1951 Output Total 1140 1305 1040 Balance 1744.00 1246 911 Weight 111.584 kg Intake: IV 2300 2450 1850 D5-0.45% NaCl with KCl 1800 1800 1650 20Meq/l 1,000 ml @ 150 mls/hr IV .Q6H40M [facility] Rx# :[id number] Magnesium Sulfate-D5w Pmx 100 200 1 gm In Dextrose/Water 1 100ml.bag @ 100 mls/hr IVPB Q1H [facility] Rx#: [id number] Potassium Phosphate 10 500 500 mmol In Sodium Chloride 0 .9% 250 ml @ 125 mls/hr IV Q2H [facility] Rx#:[id number] cefTRIAXone 1,000 mg In 50 Sodium Chloride 0.9% 50 ml @ 100 mls/hr IVPB Q24H [facility] Rx#:[id number] Intake, IV Titration 184.00 101 101 Amount Diltiazem 50 mg In Sodium 44.25 Chloride 0.9% 40 ml @ 5 MG/HR 5 mls/hr IV .Q10H [facility] Rx#:[id number] Insulin Regular 100 unit 101 101 101 In Sodium Chloride 0.9% 100 ml @ 0.1 UNITS/KG/HR 10.99 mls/hr IV .Q9H12M [facility] Rx#:[id number] Norepinephrine 4 mg In 38.75 Sodium Chloride 0.9% 250 ml @ Titrate IV .Q0M [facility] Rx#:[id number] Oral 400 Output: Urine 1140 1305 1040 Other: Voiding Method Indwelling Catheter Indwelling Catheter Indwelling Catheter # Bowel Movements 1 - Exam PHYSICAL EXAMINATION: Patient is lying in the bed comfortably, no acute distress, awake alert and oriented.. HEENT: Normocephalic. Neck is supple. Pupils reactive. Nostrils clear. Oral cavity is moist. Ears reveal no drainage. Neck reveals no JVD, carotid bruits, or thyromegaly. CHEST EXAMINATION: Trachea is central. Symmetrical expansion. Lung hou clear to auscultation and percussion. CARDIAC: Normal S1, S2 with no gallops. No murmurs . ABDOMEN: Soft. Bowel sounds normal. No organomegaly. No abdominal bruits. Extremities: reveal no edema. No clubbing or cyanosis Neurologically awake, alert, oriented x3 with well-coordinated movements. No focal deficits noted Skin: No rash or skin lesions. Psychiatric: Coperative. Nonsuicidal Musculoskeletal: No joint swelling or deformity. Normal range of motion. - Labs CBC & Chem 7: 03/25/18 05:48 03/25/18 05:48 Labs: Abnormal Lab Results - Last 24 Hours (Table) 03/23/18 03/23/18 03/23/18 Range/Units 17:49 18:07 18:57 RBC (3.80-5.40) m/uL MCV (80.0-100.0) fL Plt Count (150-450) k/uL Lymphocytes # (1.0-4.8) k/uL PT (9.0-12.0) sec INR (<1.2) Chloride 121 H (98-107) mmol/L Carbon Dioxide 15 L (22-30) mmol/L BUN 23 H (7-17) mg/dL Glucose 208 H (74-99) mg/dL POC Glucose (mg/dL) 191 H 170 H (75-99) mg/dL Phosphorus 1.8 L (2.5-4.5) mg/dL 03/23/18 03/23/18 03/23/18 Range/Units 20:08 21:03 21:51 RBC (3.80-5.40) m/uL MCV (80.0-100.0) fL Plt Count (150-450) k/uL Lymphocytes # (1.0-4.8) k/uL PT (9.0-12.0) sec INR (<1.2) Chloride (98-107) mmol/L Carbon Dioxide (22-30) mmol/L BUN (7-17) mg/dL Glucose (74-99) mg/dL POC Glucose (mg/dL) 162 H 136 H 135 H (75-99) mg/dL Phosphorus (2.5-4.5) mg/dL 03/23/18 03/23/18 03/23/18 Range/Units 22:14 22:57 23:51 RBC (3.80-5.40) m/uL MCV (80.0-100.0) fL Plt Count (150-450) k/uL Lymphocytes # (1.0-4.8) k/uL PT (9.0-12.0) sec INR (<1.2) Chloride 121 H (98-107) mmol/L Carbon Dioxide 17 L (22-30) mmol/L BUN 20 H (7-17) mg/dL Glucose 136 H (74-99) mg/dL POC Glucose (mg/dL) 140 H 156 H (75-99) mg/dL Phosphorus (2.5-4.5) mg/dL 03/24/18 03/24/18 03/24/18 Range/Units 00:58 02:30 04:13 RBC 3.50 L (3.80-5.40) m/uL MCV 101.6 H (80.0-100.0) fL Plt Count 90 L (150-450) k/uL Lymphocytes # 0.5 L (1.0-4.8) k/uL PT (9.0-12.0) sec INR (<1.2) Chloride (98-107) mmol/L Carbon Dioxide (22-30) mmol/L BUN (7-17) mg/dL Glucose (74-99) mg/dL POC Glucose (mg/dL) 154 H 187 H (75-99) mg/dL Phosphorus (2.5-4.5) mg/dL 03/24/18 03/24/18 03/24/18 Range/Units 04:13 04:13 04:25 RBC (3.80-5.40) m/uL MCV (80.0-100.0) fL Plt Count (150-450) k/uL Lymphocytes # (1.0-4.8) k/uL PT 12.4 H (9.0-12.0) sec INR 1.3 H (<1.2) Chloride 120 H (98-107) mmol/L Carbon Dioxide 15 L (22-30) mmol/L BUN 18 H (7-17) mg/dL Glucose 227 H (74-99) mg/dL POC Glucose (mg/dL) 223 H (75-99) mg/dL Phosphorus (2.5-4.5) mg/dL 03/24/18 03/24/18 03/24/18 Range/Units 04:52 06:14 07:00 RBC (3.80-5.40) m/uL MCV (80.0-100.0) fL Plt Count (150-450) k/uL Lymphocytes # (1.0-4.8) k/uL PT (9.0-12.0) sec INR (<1.2) Chloride (98-107) mmol/L Carbon Dioxide (22-30) mmol/L BUN (7-17) mg/dL Glucose (74-99) mg/dL POC Glucose (mg/dL) 225 H 259 H 237 H (75-99) mg/dL Phosphorus (2.5-4.5) mg/dL 03/24/18 03/24/18 03/24/18 Range/Units 07:49 09:03 10:16 RBC (3.80-5.40) m/uL MCV (80.0-100.0) fL Plt Count (150-450) k/uL Lymphocytes # (1.0-4.8) k/uL PT (9.0-12.0) sec INR (<1.2) Chloride 118 H (98-107) mmol/L Carbon Dioxide 15 L (22-30) mmol/L BUN (7-17) mg/dL Glucose 269 H (74-99) mg/dL POC Glucose (mg/dL) 302 H 304 H (75-99) mg/dL Phosphorus 2.3 L (2.5-4.5) mg/dL 03/24/18 03/24/18 03/24/18 Range/Units 11:20 14:25 16:55 RBC (3.80-5.40) m/uL MCV (80.0-100.0) fL Plt Count (150-450) k/uL Lymphocytes # (1.0-4.8) k/uL PT (9.0-12.0) sec INR (<1.2) Chloride (98-107) mmol/L Carbon Dioxide (22-30) mmol/L BUN (7-17) mg/dL Glucose (74-99) mg/dL POC Glucose (mg/dL) 250 H 125 H 105 H (75-99) mg/dL Phosphorus (2.5-4.5) mg/dL Microbiology - Last 24 Hours (Table) 03/22/18 08:10 Blood Culture Gram Stain - Preliminary Blood Blood Culture - Preliminary Alpha Hemolytic Streptococcus Alpha Hemolytic Streptococcus#2 Coagulase Negative Staph 03/23/18 00:49 Blood Culture - Preliminary Blood No Growth after 24 hours 03/22/18 15:17 Urine Culture - Final Urine,Catheterized 03/22/18 08:10 Blood Culture - Final Blood Assessment and Plan Assessment: Acute diabetic ketoacidosis with no prior history of diabetes. His B A1c 6.4. Suspected immunotherapy induced. Anion gap metabolic acidosis. Improving New onset atrial fibrillation with RVR. Currently converted to sinus rhythm. Rate controlled. Acute Non-ST elevated TN Acute CHF with ejection fraction 30-35% and global hypokinesis Coronary artery disease with history of CABG and stent placement Acute kidney injury most likely prerenal Non-small cell lung cancers diagnosed in September 2017. Status post chemoradiation and currently on immunotherapy. Patient was not a surgical candidate. Morbid Obesity BMI 40.5 DVT prophylaxis Plan: Patient was continued on at this hydration. Blood pressure is controlled now. Off Levothroid drip. Patient will be continued on insulin drip. Will be transitioned to Lantus tonight. Heart rate is controlled with metoprolol and started on anticoagulation in the form of xarelto. Due to elevated troponin level Cardiology is planning for catheterization once patient is clinically stable. Cardiology and pulmonary is following. Prognosis is poor with multiple medical problems and comorbid conditions including non-small cell lung cancer. Further recommendations based on the clinical course. Time with Patient: Greater than 30
--- NOTE | 2018-03-26 01:48 | P.PN ---
Subjective Progress Note Date: 03/25/18 Principal diagnosis: New onset diabetic ketoacidosis A. fib with RVR Patient is a 72-year-old female with a known history of coronary artery disease , CABG and also stent placement, non-small cell lung cancer diagnosed in September 2017 status post chemotherapy and radiation, currently on immunotherapy presented to ER with complaints of dizziness and weakness worsening for the past 1 day. Patient also having excessive urination and became progressively weak and lethargic. Patient was brought to the hospital by her daughter. Patient was found to be in acute DKA with a acetone positive and bicarb less than 5. Initial blood sugar is greater than 800. Patient was also found to be in atrial fibrillation with rapid regular rate. Patient is currently in the MICU. patient is on Cardizem drip as well as insulin drip. Patient does not have any history of diabetes in the past. Patient denied any fever or chills. No couplets abdominal pain. No nausea vomiting. Chest x-ray showed no acute cardiopulmonary process. EKG showed Atrial fibrillation with rapid ventricular rate 2-D echocardiogram was done showed ejection fraction 30-35% with global hypokinesis. Troponin 0.246 BNP 3720 Date 03/23/2018 Patient is more awake and oriented today. Says that she feels much better today. Anion gap closed. Bicarb is still at 14. Patient otherwise remains in atrial fibrillation. Rate is fairly controlled. Patient became hypotensive and was started on Levophed drip. Continued on insulin drip. Patient was found have elevated troponin level at 34, trending down from 63 yesterday. Cardiology is planning for catheterization once patient is clinically stable. Cultures have been negative. Chest x-ray showed overall stable findings. Without suspicion for any infiltrate. On 03/24/2018 Patient denied any complaints of chest pain or shortness breath. Patient is being continued on insulin drip. Current level is 15. Will be transitioned to Lantus today. Patient is converted to sinus rhythm now. Continued on metoprolol and xarelto. Cardiology and pulmonary is following. Troponin is trending down. Otherwise no fever no chills. No nausea vomiting or abdominal pain. Tolerating oral diet. 03/25/2018 Patient denied any complaints of chest pain or shortness of breath. Remained on sinus rhythm. Continue with metoprolol and xarelto Blood sugar is fairly controlled. Patient was started on Lantus 30 units daily at bedtime along with aspart 8 units 3 times a day before meals. Continue the insulin sliding scale. No fever no chills. No acute overnight issues. Patient is being transferred to medical floor today. Current medications reviewed. Objective - Vital Signs Vital signs: Vital Signs Temp 98.7 F 03/25/18 16:00 Pulse 67 03/25/18 16:00 Resp 24 03/25/18 16:00 BP 141/95 03/25/18 15:00 Pulse Ox 97 03/25/18 16:00 Intake & Output 03/24/18 03/25/18 03/25/18 18:59 06:59 18:59 Intake Total 2101 966.675 270 Output Total 1109 1645 1170 Balance 992 -678.325 -900 Weight 112.1 kg Intake: IV 2000 950 270 0.9 120 D5-0.45% NaCl with KCl 1800 900 150 20Meq/l 1,000 ml @ 50 mls /hr IV .Q20H [facility] Rx#: [id number] Magnesium Sulfate-D5w Pmx 200 1 gm In Dextrose/Water 1 100ml.bag @ 100 mls/hr IVPB Q1H [facility] Rx#: [id number] cefTRIAXone 1,000 mg In 50 Sodium Chloride 0.9% 50 ml @ 100 mls/hr IVPB Q24H [facility] Rx#:[id number] Intake, IV Titration 101 16.675 Amount Insulin Regular 100 unit 101 16.675 In Sodium Chloride 0.9% 100 ml @ 0.1 UNITS/KG/HR 10.99 mls/hr IV .Q9H12M [facility] Rx#:[id number] Output: Urine 1109 1645 1170 Other: Voiding Method Indwelling Catheter Indwelling Catheter Indwelling Catheter - Exam PHYSICAL EXAMINATION: Patient is lying in the bed comfortably, no acute distress, awake alert and oriented.. HEENT: Normocephalic. Neck is supple. Pupils reactive. Nostrils clear. Oral cavity is moist. Ears reveal no drainage. Neck reveals no JVD, carotid bruits, or thyromegaly. CHEST EXAMINATION: Trachea is central. Symmetrical expansion. Lung hou clear to auscultation and percussion. CARDIAC: Normal S1, S2 with no gallops. No murmurs . ABDOMEN: Soft. Bowel sounds normal. No organomegaly. No abdominal bruits. Extremities: reveal no edema. No clubbing or cyanosis Neurologically awake, alert, oriented x3 with well-coordinated movements. No focal deficits noted Skin: No rash or skin lesions. Psychiatric: Coperative. Nonsuicidal Musculoskeletal: No joint swelling or deformity. Normal range of motion. - Labs CBC & Chem 7: 03/25/18 05:48 03/25/18 05:48 Labs: Abnormal Lab Results - Last 24 Hours (Table) 03/24/18 03/24/18 03/24/18 Range/Units 16:55 18:30 19:40 RBC (3.80-5.40) m/uL MCV (80.0-100.0) fL Plt Count (150-450) k/uL Lymphocytes # (1.0-4.8) k/uL INR (<1.2) Chloride (98-107) mmol/L Carbon Dioxide (22-30) mmol/L Glucose (74-99) mg/dL POC Glucose (mg/dL) 105 H 203 H 261 H (75-99) mg/dL Amylase (30-110) U/L Free T4 (0.78-2.19) ng/dL 03/24/18 03/24/18 03/25/18 Range/Units 21:19 23:49 01:20 RBC (3.80-5.40) m/uL MCV (80.0-100.0) fL Plt Count (150-450) k/uL Lymphocytes # (1.0-4.8) k/uL INR (<1.2) Chloride (98-107) mmol/L Carbon Dioxide (22-30) mmol/L Glucose (74-99) mg/dL POC Glucose (mg/dL) 249 H 330 H 309 H (75-99) mg/dL Amylase (30-110) U/L Free T4 (0.78-2.19) ng/dL 03/25/18 03/25/18 03/25/18 Range/Units 04:16 05:48 05:48 RBC 3.69 L (3.80-5.40) m/uL MCV 101.6 H (80.0-100.0) fL Plt Count 121 L (150-450) k/uL Lymphocytes # 0.5 L (1.0-4.8) k/uL INR (<1.2) Chloride 116 H (98-107) mmol/L Carbon Dioxide 18 L (22-30) mmol/L Glucose 257 H (74-99) mg/dL POC Glucose (mg/dL) 250 H (75-99) mg/dL Amylase <30 L (30-110) U/L Free T4 2.25 H (0.78-2.19) ng/dL 03/25/18 03/25/18 03/25/18 Range/Units 05:48 07:04 12:19 RBC (3.80-5.40) m/uL MCV (80.0-100.0) fL Plt Count (150-450) k/uL Lymphocytes # (1.0-4.8) k/uL INR 1.2 H (<1.2) Chloride (98-107) mmol/L Carbon Dioxide (22-30) mmol/L Glucose (74-99) mg/dL POC Glucose (mg/dL) 228 H 201 H (75-99) mg/dL Amylase (30-110) U/L Free T4 (0.78-2.19) ng/dL Microbiology - Last 24 Hours (Table) 03/22/18 08:10 Blood Culture Gram Stain - Final Blood Blood Culture - Final Alpha Hemolytic Streptococcus Alpha Hemolytic Streptococcus#2 Coagulase Negative Staph 03/23/18 00:49 Blood Culture - Preliminary Blood No Growth after 48 hours Assessment and Plan Assessment: Acute diabetic ketoacidosis with no prior history of diabetes. His B A1c 6.4. Suspected immunotherapy induced. Anion gap metabolic acidosis. Improving New onset atrial fibrillation with RVR. Currently converted to sinus rhythm. Rate controlled. Acute Non-ST elevated [place]. Cardiac catheterization once clinically stable. Acute CHF with ejection fraction 30-35% and global hypokinesis Coronary artery disease with history of CABG and stent placement Acute kidney injury most likely prerenal Non-small cell lung cancers diagnosed in September 2017. Status post chemoradiation and currently on immunotherapy. Patient was not a surgical candidate. Morbid Obesity BMI 40.5 DVT prophylaxis Plan: Patient was continued on at this hydration. Blood pressure is controlled now. Off Levothroid drip. Patient was continued on insulin drip. Currently transitioned to Lantus and aspart. Titrate dose as needed. Heart rate is controlled with metoprolol and started on anticoagulation in the form of xarelto. Due to elevated troponin level Cardiology is planning for catheterization once patient is clinically stable. Continue with Plavix and metoprolol. Cardiology and pulmonary is following. Prognosis is poor with multiple medical problems and comorbid conditions including non-small cell lung cancer. Further recommendations based on the clinical course. Time with Patient: Greater than 30
[2018-03-26] MEDS: INSULIN ASPART 100 UNIT/ML 1 ML 10 ML VIAL SQ SCH ×5 (02:36→15:01)
[2018-03-26 02:37] LABS: Glucose,Whole Blood 204 mg/dL (75-99)
[2018-03-26 07:19] LABS: Glucose,Whole Blood 142 mg/dL (75-99)
[2018-03-26 07:49] LABS: Basophils % (A) 0 %; Eosinophils % (A) 1 %; HCT 35.9 % (34.0-46.0); HGB 11.7 gm/dL (11.4-16.0); Lymphocytes # (A) 0.5 k/uL (1.0-4.8); Lymphocytes % (A) 14 %; MCH 32.4 pg (25.0-35.0); MCHC 32.7 g/dL (31.0-37.0); MCV 99.2 fL (80.0-100.0); Mean Platelet Volume 7.9; Monocytes # (A) 0.3 k/uL (0-1.0); Monocytes % (A) 7 %; Neutrophils # (A) 2.9 k/uL (1.3-7.7); Neutrophils % (A) 76 %; Platelet Count 133 k/uL (150-450); RBC 3.62 m/uL (3.80-5.40); WBC 3.8 k/uL (3.8-10.6)
[2018-03-26 08:14] LABS: Anion Gap 6 mmol/L; Blood Urea Nitrogen 9 mg/dL (7-17); Carbon Dioxide 22 mmol/L (22-30); Chloride 114 mmol/L (98-107); Glucose 138 mg/dL (74-99); Magnesium 1.6 mg/dL (1.6-2.3); Phosphorus 3.5 mg/dL (2.5-4.5); Potassium 3.8 mmol/L (3.5-5.1); Sodium 142 mmol/L (137-145)
[2018-03-26 08:22] VITALS: RESP 19
[2018-03-26] MEDS: LOSARTAN 50 MG TAB PO SCH (08:27)
[2018-03-26] MEDS: LEVOTHYROXINE 112 MCG TAB PO SCH (08:27)
[2018-03-26] MEDS: RIVAROXABAN 15 MG TAB PO SCH (08:28)
[2018-03-26] MEDS: CLOPIDOGREL 75 MG TAB PO SCH (08:28)
[2018-03-26] MEDS: PANTOPRAZOLE 40 MG/10 ML VIAL IV SCH (08:28)
[2018-03-26] MEDS: METOPROLOL TARTRATE 25 MG TAB PO SCH ×2 (08:28→16:41)
[2018-03-26] MEDS: DOCUSATE 100 MG CAP PO SCH (08:29)
--- NOTE | 2018-03-26 09:42 | P.PN ---
Subjective Progress Note Date: 03/26/18 Principal diagnosis: Acute Onset DKA Feeling better, she has been transferred from ICU and on medical floor now. Objective - Vital Signs Vital signs: Vital Signs Temp 97.9 F 03/26/18 07:20 Pulse 79 03/26/18 07:20 Resp 19 03/26/18 07:20 BP 148/85 03/26/18 07:20 Pulse Ox 96 03/26/18 07:20 Intake & Output 03/25/18 03/26/18 03/26/18 18:59 06:59 18:59 Intake Total 310 40 Output Total 1170 475 Balance -860 -435 Intake: IV 310 40 0.9 160 40 D5-0.45% NaCl with KCl 150 20Meq/l 1,000 ml @ 50 mls /hr IV .Q20H [facility] Rx#: [id number] Output: Urine 1170 475 Other: Voiding Method Indwelling Catheter Indwelling Catheter - Exam - Constitutional General appearance: average body habitus, cooperative, no acute distress - EENT Eyes: edentulous, EOMI, PERRLA ENT: hard of hearing, NA/AT, normal oropharynx - Cardiovascular Rhythm: irregularly irregular - Gastrointestinal General gastrointestinal: normal bowel sounds, soft - Integumentary Integumentary: pale - Neurologic Neurologic: CNII-XII intact - Musculoskeletal Musculoskeletal: gait normal, generalized weakness, strength equal bilaterally - Psychiatric Psychiatric: A&O x's 3, appropriate affect, intact judgment & insight - Labs CBC & Chem 7: 03/26/18 07:22 03/26/18 07:22 Labs: Abnormal Lab Results - Last 24 Hours (Table) 03/25/18 03/25/18 03/25/18 Range/Units 12:19 17:30 20:42 RBC (3.80-5.40) m/uL Plt Count (150-450) k/uL Lymphocytes # (1.0-4.8) k/uL Chloride (98-107) mmol/L Glucose (74-99) mg/dL POC Glucose (mg/dL) 201 H 115 H 221 H (75-99) mg/dL 03/26/18 03/26/18 03/26/18 Range/Units 02:28 07:07 07:22 RBC 3.62 L (3.80-5.40) m/uL Plt Count 133 L (150-450) k/uL Lymphocytes # 0.5 L (1.0-4.8) k/uL Chloride (98-107) mmol/L Glucose (74-99) mg/dL POC Glucose (mg/dL) 204 H 142 H (75-99) mg/dL 03/26/18 Range/Units 07:22 RBC (3.80-5.40) m/uL Plt Count (150-450) k/uL Lymphocytes # (1.0-4.8) k/uL Chloride 114 H (98-107) mmol/L Glucose 138 H (74-99) mg/dL POC Glucose (mg/dL) (75-99) mg/dL Microbiology - Last 24 Hours (Table) 03/23/18 00:49 Blood Culture - Preliminary Blood No Growth after 72 hours 03/22/18 08:10 Blood Culture Gram Stain - Final Blood Blood Culture - Final Alpha Hemolytic Streptococcus Alpha Hemolytic Streptococcus#2 Coagulase Negative Staph Assessment and Plan Plan: Assessment and Recs: 1. Stage 3 Non-SMall Cell Lung Cancer - Squamous - On Maintenance with Imfinzi (Immunotherapy) - Currently on hold - Last Treatment 03/08/18 - Will set up an appointment to follow-up as outpatient once discharged from hospital. 2. New Onset Diabetes with Diabetic Ketoacidosis - Control per Endocrinology and Primary team, Likely require insulin through duration of treatments with Imfinzi - Onset of DM has been reported in 0.2% of cases undergoing tx with imfinizi, management is insulin control through remaqinder of treatment 3. New Onset Atrial Fibrillation with RVR: - Per Cardiology - Xarelto 4. Thrombocytopenia: Improved/Resolving 5. Hypothyroid - TSH in ofice 03/02/18 = 41, er synthroid increased to 225mcg, restarted today - Monitor closely as endocrinopathies of thyroid are common with immune checkpoint inhibitor therapy. Tracie Yu NP Medical Oncology I
--- NOTE | 2018-03-26 12:08 | ECHOF ---
Referral Reason:Chest pain and cardiomyopathy MEASUREMENTS -------- HEIGHT: 162.6 cm WEIGHT: 112.0 kg BP: 107/85 IVSd: 1.1 cm (0.6 - 1.1) LVIDd: 4.6 cm (3.9 - 5.3) LVPWd: 1.4 cm (0.6 - 1.1) IVSs: 1.8 cm LVIDs: 3.7 cm LVPWs: 1.6 cm FINDINGS -------- Sinus rhythm. Limited Study There is mild concentric left ventricular hypertrophy. Overall left ventricular systolic function i s moderate-severely impaired with, an EF between 30 - 35 %. CONCLUSIONS -------- 1. Sinus rhythm. 2. Limited Study 3. There is mild concentric left ventricular hypertrophy. 4. Overall left ventricular systolic function is moderate-severely impaired with, an EF between 30 - 35 %. RESOURCE CONSERVATION MANAGER: Elda Conde [facility]
[2018-03-26] MEDS ORDERED: POTASSIUM CHLORIDE ER 10 MEQ TAB.ER.PRT PO SCH (12:15)
[2018-03-26] MEDS ORDERED: FUROSEMIDE 20 MG TAB PO SCH (12:15)
[2018-03-26 12:19] LABS: Glucose,Whole Blood 62 mg/dL (75-99)
--- NOTE | 2018-03-26 12:33 | P.PN ---
Subjective Progress Note Date: 03/26/18 Principal diagnosis: Acute DKA with anion gap metabolic acidosis, new onset A. fib RVR, CHF, non-ST elevated LA This is a 72-year-old female patient, known history of non-small cell lung cancer locally advanced post chemoradiation therapy with favorable response. The patient is also known to have coronary artery disease and she underwent coronary artery bypass surgery 2005. No previous history of diabetes mellitus. She presented to the hospital because of rapid onset confusion did involved over the past 24 hours. The patient was having excessive urination and dry mouth. She was also getting progressively more weak, lethargic, altered mentation and she arrived to the emergency department and her blood work was typical of an acute DKA with anion gap metabolic acidosis and a serum bicarb of less than 5 and positive acetone. Her initial blood sugar was above 800. The patient was also found to be in atrial fibrillation with rapid ventricular response. Her BNP level was 3720. First set of troponin was at 0.24. She was started on a Cardizem drip for rate control. She was given 2 L of IV fluids and she was started on insulin drip which is currently running at 10 units an hour. She got she has had to the intensive care unit. Anatomical my evaluation, the patient was much more alert and awake. She was following commands and answering questions appropriately. He denied having any chest pain. She denied any any cough or sputum production. No fever or chills. She is not known to have diabetes mellitus. She has been taken Imfinzi , immunotherapy, regarding her non-small cell lung cancer. No dysuria frequency or urgency. Some vague abdominal discomfort which ultimately recovered. No abdominal distention. No emesis. No pleurisy. No hemoptysis. Chest x-ray shows no acute abnormalities. Cardiology is on the case. Echocardiac Rommel was done and the patient was found to have an ejection fraction of 30-35% along with global hypokinesis. In regards to her atrial fibrillation, the patient is currently on Cardizem drip for rate control. In regards to her pulmonary status,, I diagnosed this patient with stage III non -small cell lung cancer. She was not found to be a surgical candidate. She was referred to chemoradiation therapy. She completed the radiation rounds November 2017 with some shortness of breath and radiation his esophagitis which ultimately recovered. She was also fatigued during the time of treatment. She also received systemic chemotherapy and she has completed the treatment. Follow- up PET/CT was done on 01/27/2018 and the findings showed positive treatment response with diminished size of the left suprahilar mass currently measuring 12 x 11 mm in size and there is also diminished in metabolic activity with an SUV of 5.43 compared to 9.1. No new areas of abnormal metabolic activity. The patient was seen by Dr. Hubert Brown for a surgical consultation and the patient was not found to be in adequate surgical candidate because of her underlying lung function and location of the mass that would ultimately need an pneumonectomy which is not possible in this situation. Based on all this, the patient was started on immunotherapy and the patient is receiving Imfinzi On 03/23/2018 patient seen in follow-up in the intensive care unit, she is awake and alert, in no acute distress, no shortness of breath or chest pain. Remains in A. fib, the rate is better controlled, and it's ranging from 93-103 BPM. Levo fed has been on hold since 7:00 this morning. Patient remains on Cardizem drip currently at 5 mg per hour, maintenance IV fluids D5 half-normal saline with 20 in the care of potassium at 150 ML per hour. Insulin drip is currently at 2.5 units per hour. This morning's blood work has been reviewed and showed WBC of 11.3, hemoglobin is 12.4, anion gap has closed and at 8, chloride is 123, CO2 is 12, BUN is 35 and creatinine is 1.2. This morning his troponin is 34.7. She has been evaluated by cardiology, and once the patient is stabilized the plan is for possible heart catheterization. Urine and blood cultures remain negative. Today's chest x-ray has been reviewed, and shows overall stable findings, On 03/26/2018 patient seen in follow-up on medical surgical floor. She is awake and alert, in no acute distress, no shortness of breath or chest pain. Patient's IV insulin has been transitioned to subcutaneous insulin. Her labs have been reviewed, WBC is 3.8, hemoglobin is 11.7, patient's anion gap has closed, at 6, the rest of electrodes and renal profile are unremarkable. SHe is tolerating oral diet. Patient is currently in sinus rhythm with a controlled rate, today's 2-D echo showed EF between 30 and 35%. Patient has been initiated on Xarelto for atrial fibrillation, platelet count is improving, it is up to 133. Lung sounds are clear to auscultation, signs are stable, patient is afebrile, room air pulse ox is 96%. Blood cultures were positive for alpha hemolytic streptococcus, follow blood cultures have been negative. Patient remains on Rocephin infusions. We'll discontinue [place], we will increase activity, and weight the patient Objective - Vital Signs Vital signs: Vital Signs Temp 97.9 F 03/26/18 07:20 Pulse 79 03/26/18 07:20 Resp 19 03/26/18 07:20 BP 148/85 03/26/18 07:20 Pulse Ox 96 03/26/18 07:20 Intake & Output 03/25/18 03/26/18 03/26/18 18:59 06:59 18:59 Intake Total 310 40 Output Total 0761 645 1226 Balance -860 -435 -2100 Intake: IV 310 40 0.9 160 40 D5-0.45% NaCl with KCl 150 20Meq/l 1,000 ml @ 50 mls /hr IV .Q20H [facility] Rx#: [id number] Output: Urine 6462 424 9127 Uretheral ([place]) 2100 Other: Voiding Method Indwelling Catheter Indwelling Catheter - Exam General Appearance no diaphoresis, awake and alert, obese 72-year-old white female, comfortable in no distress HEENT no pursed lip breathing, no jugular venous distention, no mucous membrane cyanosis, no perioral cyanosis, mallampati classification: class 1, Mallampati Classification: Class 4 Chest no barrel chest, no retractions, no sternocleidomastoid muscle contractions, no supraclavicular retractions, no intercostal retractions, no prolonged expiratory wheezing, no decreased air movement, no rhonchi, no hyperinflation, (normal) adventitious sounds: diminished breath sounds Heart no right ventricular heave, no distant heart sounds, no s3 gallop, (normal ) jugular vein: jugular venous distention: by 0cm, (normal) jugular vein, Murmurs: Unspecified Location: Systolic: Grade 3 / IV GI bowel sounds: hyperactive (borborygmi), bowel sounds: diminished or absent Extremities no cyanosis, no clubbing, no edema Neurologic the patient is moving all 4 extremities without any limitation. No focal neurological deficit. She has motor weakness in all 4 extremities, 4/5 motor function. Cranial nerves are intact. Pupils are equal and reactive to light. No neck stiffness. Gait and Mobility: Not performed as the patient is currently laying down comfortably in bed and she is having significant amount of weakness as she is being treated for DKA. - Labs CBC & Chem 7: 03/26/18 07:22 03/26/18 07:22 Labs: Abnormal Lab Results - Last 24 Hours (Table) 03/25/18 03/25/18 03/26/18 Range/Units 17:30 20:42 02:28 RBC (3.80-5.40) m/uL Plt Count (150-450) k/uL Lymphocytes # (1.0-4.8) k/uL Chloride (98-107) mmol/L Glucose (74-99) mg/dL POC Glucose (mg/dL) 115 H 221 H 204 H (75-99) mg/dL 03/26/18 03/26/18 03/26/18 Range/Units 07:07 07:22 07:22 RBC 3.62 L (3.80-5.40) m/uL Plt Count 133 L (150-450) k/uL Lymphocytes # 0.5 L (1.0-4.8) k/uL Chloride 114 H (98-107) mmol/L Glucose 138 H (74-99) mg/dL POC Glucose (mg/dL) 142 H (75-99) mg/dL 03/26/18 Range/Units 12:08 RBC (3.80-5.40) m/uL Plt Count (150-450) k/uL Lymphocytes # (1.0-4.8) k/uL Chloride (98-107) mmol/L Glucose (74-99) mg/dL POC Glucose (mg/dL) 62 L (75-99) mg/dL Microbiology - Last 24 Hours (Table) 03/23/18 00:49 Blood Culture - Preliminary Blood No Growth after 72 hours 03/22/18 08:10 Blood Culture Gram Stain - Final Blood Blood Culture - Final Alpha Hemolytic Streptococcus Alpha Hemolytic Streptococcus#2 Coagulase Negative Staph Assessment and Plan Plan: 1 acute DKA with anion gap metabolic acidosis and positive acetone and the patient who does not have history of diabetes mellitus. 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 2 new onset atrial fibrillation with rapid ventricular response, converted to sinus rhythm 3 non-ST elevated LA 4 CHF with an ejection fraction of 30-35% and global hypokinesis 5coronary artery disease with previous bypass surgery in 2005 6 non-small cell lung cancer, the patient was diagnosed having stage IIIB non- small cell lung cancer. She was treated with a combination of chemoradiation therapy. She had favorable response. She was considered for surgical resection and she was seen by Dr. Hubert Brown and she was labeled to be a nonsurgical candidate due to her borderline lung function and the tumor location. The patient's baseline FEV1 was 60% of predicted. Based on this, the patient was started on PDL1 antagonist, immunotherapy, Imfinzi, and she has already received 3 cycles of this systemic treatment. 7 chronic dyspnea secondary to above 8 obesity BMI 40.5 9 acute kidney injury secondary to intravascular volume depletion/DKA Plan: Patient denies any distress, no shortness of breath or chest pain, IV insulin has been transitioned to subcutaneous injections of insulin. Her anion gap has closed, metabolic acidosis has improved. Hemodynamically patient remains stable , she is on room air, she denies any specific complaints, discontinue [place] catheter, increase activity as tolerated. Cardiology is following in regards to non-ST elevated LA, patient will require heart catheterization in the near future. From pulmonary/critical care perspective patient is stable, denies any acute complaints. We will follow the patient on as-needed basis, she can be cleared for discharge from our perspective as long as she's been cleared by cardiology. She'll need follow-up with Dr. Phillip in the office in one week I performed a history & physical examination of the patient and discussed their management with my nurse practitioner, Kylah Carney. I reviewed the nurse practitioner's note and agree with the documented findings and plan of care. Lung sounds are diminished. The findings and the impression was discussed with the patient. I attest to the documentation by the nurse practitioner. Time with Patient: Less than 30
[2018-03-26 12:46] LABS: Glucose,Whole Blood 98 mg/dL (75-99)
[2018-03-26 13:34] VITALS: BMI 42.4
--- NOTE | 2018-03-26 14:16 | P.PN ---
Subjective This is a pleasant 72-year-old female past medical history significant for coronary artery disease status post bypass grafting with free ECHO to intermediate branch, SVG to LAD and SVG to posterolateral circumflex. She underwent angioplasty of a totally occluded SVG to LAD in 2007 as well as stenting of the distal left main and proximal circumflex. She also has hypertension, dyslipidemia, non-small cell lung cancer and carotid artery disease s/p left endartectomy. She is being seen on the medical unit after transfer from ICU. She has converted back to sinus mechanism. She denies chest pain, shortness of breath, dizziness or palpitations. Blood pressure 148/85 heart rate 79 afebrile and maintaining oxygen saturation on room air. Laboratory data reviewed, WBC 3.8, hgb 11.7, plt 133, sodium 142, potassium 3.8 , creatinine 0.62, magnesium 1.6. Currently maintained on plavix, losartan, metoprolol and xarelto. Repeat echocardiogram obtained shows ejection fraction 30-35%. GENERAL: Well-appearing, well-nourished and in no acute distress. Obese. NECK: Supple without JVD or thyromegaly. LUNGS: Breath sounds clear to auscultation bilaterally. Respiration equal and unlabored. No wheezes, rales or rhonchi. Diminished bilaterally. HEART: Regular rate and rhythm with systolic ejection murmur at the base, no rubs or gallops. S1 and S2 heard. EXTREMITIES: Normal range of motion, no edema. No clubbing or cyanosis. Peripheral pulses intact. ASSESSMENT New onset paroxysmal atrial fibrillation with rapid ventricular response. Anticoagulation has been initiated. She has converted to sinus mechanism. Non-ST elevated myocardial infarction Diabetic ketoacidosis Non-small cell lung carcinoma Acute kidney injury Acute on chronic systolic heart failure. Morbid obesity, BMI 42.4 PLAN Case has been discussed with her primary outsole skiver, Dr. Villarrela, and he has discussed with Dr. Raines. Current recommendation is for maximizing her medical therapy. She is hemodynamically stable and chest pain free. Initiate on small dose of PO lasix 20 mg daily along with potassium supplementation. Follow up appointment has been made with Dr. Villarreal 04/09 at 9:30. Nurse Practitioner note has been reviewed, I agree with a documented findings and plan of care. Patient was seen and examined. Objective - Vital Signs Vital signs: Vital Signs Temp 97.9 F 03/26/18 07:20 Pulse 79 03/26/18 07:20 Resp 19 03/26/18 07:20 BP 148/85 03/26/18 07:20 Pulse Ox 96 03/26/18 07:20 Intake & Output 03/25/18 03/26/18 03/26/18 18:59 06:59 18:59 Intake Total 310 40 Output Total 9093 723 8856 Balance -860 435 -2100 Weight 112.1 kg Intake: IV 310 40 0.9 160 40 D5-0.45% NaCl with KCl 150 20Meq/l 1,000 ml @ 50 mls /hr IV .Q20H ON LICENSE OF [facility] Rx#: [id number] Output: Urine 4995 097 2470 Uretheral ([place]) 2100 Other: Voiding Method Indwelling Catheter Indwelling Catheter - Labs CBC & Chem 7: 03/26/18 07:22 03/26/18 07:22 Labs: Abnormal Lab Results - Last 24 Hours (Table) 03/25/18 03/25/18 03/26/18 Range/Units 17:30 20:42 02:28 RBC (3.80-5.40) m/uL Plt Count (150-450) k/uL Lymphocytes # (1.0-4.8) k/uL Chloride (98-107) mmol/L Glucose (74-99) mg/dL POC Glucose (mg/dL) 115 H 221 H 204 H (75-99) mg/dL 03/26/18 03/26/18 03/26/18 Range/Units 07:07 07:22 07:22 RBC 3.62 L (3.80-5.40) m/uL Plt Count 133 L (150-450) k/uL Lymphocytes # 0.5 L (1.0-4.8) k/uL Chloride 114 H (98-107) mmol/L Glucose 138 H (74-99) mg/dL POC Glucose (mg/dL) 142 H (75-99) mg/dL 03/26/18 Range/Units 12:08 RBC (3.80-5.40) m/uL Plt Count (150-450) k/uL Lymphocytes # (1.0-4.8) k/uL Chloride (98-107) mmol/L Glucose (74-99) mg/dL POC Glucose (mg/dL) 62 L (75-99) mg/dL Microbiology - Last 24 Hours (Table) 03/23/18 00:49 Blood Culture - Preliminary Blood No Growth after 72 hours 03/22/18 08:10 Blood Culture Gram Stain - Final Blood Blood Culture - Final Alpha Hemolytic Streptococcus Alpha Hemolytic Streptococcus#2 Coagulase Negative Staph
[2018-03-26 15:03] VITALS: BP 131/73; PULSE 86; TEMP 97.7
--- NOTE | 2018-03-26 15:42 | DS ---
DISCHARGE SUMMARY FINAL DIAGNOSES: 1. Acute diabetic ketoacidosis with new onset uncontrolled diabetes mellitus type 2. 2. Anion gap metabolic acidosis. 3. New onset atrial fibrillation with rapid ventricular rate proximal. 4. Acute non ST-segment elevation myocardial infarction. 5. Congestive heart failure with chronic systolic dysfunction ejection fraction 30-35 percent with global hypokinesis seen. 6. Coronary artery disease, history of coronary artery bypass grafting and stent. 7. Acute kidney injury with renal failure with acute prerenal factors. 8. Non-small cell lung cancer diagnosed in September 2017 status post chemo radiation, currently on immunotherapy. 9. Morbid obesity. 10.Deep vein thrombosis prophylaxis. DISCHARGE DISPOSITION: The patient being discharged in stable condition with guarded prognosis. Total time taken 35 minutes. HISTORY OF PRESENT ILLNESS: This 72-year-old woman with a past medical history of multiple medical problems as mentioned earlier, being followed by Dr. Riley in the outpatient setting was admitted with acute diabetic ketoacidosis and multiple features as mentioned above. The patient was treated with insulin. The patient improved significantly. Patient also had atrial fibrillation, and acute non ST elevation myocardial infarction. Also cardiology and pulmonology and multiple consultants saw the patient. Patient was clinically monitored. Medications were adjusted. Patient improved significantly. Improved much better. The patient is being discharged in stable condition with guarded prognosis after clearance from multiple consultants. Total time taken 35 minutes. Cardiology saw the patient and recommended possible consideration for cardiac cath later once the patient is stabilized. On exam, vitals are stable. Cardio system: S1, S2. Abdomen soft. Nervous system: No focal deficits. DISCHARGE ADVICE AND MEDICATIONS: 1. Diet is cardiac diet. 2. Activity limited until followup. 3. Follow up with Dr. Rosemary Bagley in 2-3 days. 4. Follow up with cardiology has recommended. 5. Followup with Hematology/Oncology as recommended. MEDICATIONS ARE: At this time: 1. Plavix 75 mg p.o. daily. 2. Lasix 20 mg p.o. daily. 3. Cozaar 50 mg p.o. daily. 4. Lipitor 10 mg q.h.s. 5. Colace 100 mg p.o. b.i.d. 6. Levemir 30 units subcu q.h.s. Accu-Cheks a.c. and q.h.s. Diabetic education follow up in the outpatient setting. 7. Synthroid 225 mcg p.o. daily. 8. Lopressor 25 mg p.o. t.i.d. 9. Xarelto 50 mg with breakfast. Once again, the patient is being discharged in stable condition with guarded prognosis. Once again the patient is being discharged in stable condition with guarded prognosis with multiple medical issues as detailed above. As far as the malignancy is concerned, the patient was noted to be not a surgical candidate. See orders for details. MMODL / IJN: [id number] /
--- NOTE | 2018-04-10 08:45 | CDI ---
Last Revision, April 2017 Documentation Clarification Form Date: 04/10/18 From: CATRINA Klein Phone: If you have question, contact Dasha Ruvalcaba at [phone] M-F 8:30 am to 6pm Admit Date: 03/22/2018 10:33:00 AM Patient Name: Laurie Green Visit Number: [id number] Discharge Date: 03/22/18 ATTENTION: The Clinical Documentation Specialists (CDI) and [facility] Coding Staff appreciate your assistance in clarifying documentation. Please respond to the clarification below the line at the bottom and electronically sign. The CDI & [facility] Coding staff will review the response and follow-up if needed. Please note: Queries are made part of the Legal Health Record. If you have any questions, please contact the author of this message via ITS. Toyin Hair MD Conflicting documentation has been found within this chart. Per the Pulmonary Consultation, "acute DKA with anion gap metabolic acidosis and positive acetone and the patient does not have a history of diabetes mellitus. 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 The most likely etiology of the DKA is also the immunotherapy per this note as well. 03/26 Progress Note (ASHOK Yu) documents "acute onset DKA. Feeling better, she has been transferred from ICU and on medical floor now". This note also documents "onset of DM has been reported in 0.2% of cases undergoing treatment with Imfinizi, management is insulin control throughout remainder of treatment" . Per ASHOK Carney's 03/26 note (Dr. Johnson,day of discharge) the suspected linkage between medication and diabetes is documented. Discharge Summary documents the final diagnoses as "1. acute diabetic ketoacidosis with new onset uncontrolled diabetes mellitus type 2 In your professional opinion, can you please clarify the type of DM this patient has? Drug/chemical induced DM 1 DM type 2 Other, please specify Unable to determine Drug/chemical induced DM 1 possible MTDD
== END 2018-03-26 16:43 | disposition home health service (06) | DRG 637 ==
LOC: EC 07:27 → 2SICU 10:33 → 4SSUR 03-25 20:45
PROVIDERS: ADMIT Internal Medicine; ATTEND Internal Medicine
DX: E09.10 Drug or chemical induced diabetes mellitus with ketoacidosis without coma (principal); I21.4 Non-ST elevation (NSTEMI) myocardial infarction; I50.23 Acute on chronic systolic (congestive) heart failure; C34.12 Malignant neoplasm of upper lobe, left bronchus or lung; N17.9 Acute kidney failure, unspecified; Z68.41 Body mass index [BMI] 40.0-44.9, adult; I25.810 Atherosclerosis of coronary artery bypass graft(s) without angina pectoris; I48.0 Paroxysmal atrial fibrillation; E66.01 Morbid (severe) obesity due to excess calories; E03.9 Hypothyroidism, unspecified; M19.90 Unspecified osteoarthritis, unspecified site; Z79.899 Other long term (current) drug therapy; M46.90 Unspecified inflammatory spondylopathy, site unspecified; I49.3 Ventricular premature depolarization; E78.5 Hyperlipidemia, unspecified; E86.9 Volume depletion, unspecified; R13.10 Dysphagia, unspecified; R79.1 Abnormal coagulation profile; I11.0 Hypertensive heart disease with heart failure; D69.6 Thrombocytopenia, unspecified; I95.9 Hypotension, unspecified; T45.1X5A Adverse effect of antineoplastic and immunosuppressive drugs, initial encounter; Z95.5 Presence of coronary angioplasty implant and graft; Z92.21 Personal history of antineoplastic chemotherapy; Z92.3 Personal history of irradiation; I25.2 Old myocardial infarction; Z87.891 Personal history of nicotine dependence; Z79.01 Long term (current) use of anticoagulants; Z79.02 Long term (current) use of antithrombotics/antiplatelets; Z79.4 Long term (current) use of insulin; Z79.890 Hormone replacement therapy; Z79.82 Long term (current) use of aspirin
CPT/HCPCS: 36415; 51702; 71045; 71046; 80048; 80051; 80053; 81001; 82009; 82024; 82150; 82533; 82550; 82553; 82565; 82947; 83002; 83003; 83036; 83690; 83735; 83880; 84100; 84132; 84146; 84439; 84443; 84481; 84484; 84520; 85025; 85379; 85610; 85730; 87040; 87086; 87324; 93005; 93306; 93308; 94640; 96361; 96365; 96376; 99291

== ENCOUNTER → 2018-04-26 | Outpatient (CLI) | payer MEDICARE, OTHER ==
[2018-04-26 14:39] LABS: Blood Urea Nitrogen 14 mg/dL (7-17)
--- NOTE | 2018-04-26 15:47 | CT ---
EXAMINATION TYPE: CT chest wo/w con DATE OF EXAM: 04/26/2018 COMPARISON: Chest CT September 11, 2017. PET/CT January 27, 2018 HISTORY: Malignant neoplasm of upper left lobe bronchus CT DLP: 1202.2 mGycm. Automated Exposure Control for Dose Reduction was Utilized. TECHNIQUE: CT scan of the thorax is performed following without and with IV Contrast, patient inject ed with 100ml mL of Isovue M300. FINDINGS: LUNGS: Background mild to moderate emphysematous changes redemonstrated. There is new linear scarring and/or atelectasis centrally in both lungs. There is persistent trace left pleural effusion. There i s persistent left hilar mass or neoplasm measuring roughly 1.9 x 1.6 cm axial image 24, this is dimin ished from prior CT where it measured 2.8 x 2.5 cm axial image 21. This abuts the anterior aspect of the left pulmonary artery. Infrahilar extension is redemonstrated. Some additional central groundglas s opacity throughout the left lung is identified could reflect treatment change versus acute infiltra te. Some mild linear scarring and/or atelectasis in both bases near diaphragm is present. No new susp icious nodules or masses are present. No pneumothorax is seen bilaterally. MEDIASTINUM: There are persistent borderline enlarged thoracic lymph nodes without significant change from prior study most prominent pericarinal level axial image 23 and subcarinal level. No definitive new greater than 1 cm adenopathy is present. Post CABG changes with mediastinal clips and sternal wi res is redemonstrated. Enlarged main pulmonary artery is again seen. Heart size is stable and upper l imits of normal. No pericardial effusion is seen. Epicardial pacer wires are redemonstrated inferiorl y. OTHER: Please refer to same day CT abdomen report for complete details on the upper abdomen. IMPRESSION: Improvement in left hilar neoplasm. Posttreatment changes centrally in both lungs noted. No new masses or adenopathy clearly identified.
--- NOTE | 2018-04-26 15:51 | CT ---
EXAMINATION TYPE: CT abdomen wo/w con DATE OF EXAM: 04/26/2018 HISTORY: Malignant neoplasm of upper left bronchus. CT DLP: 1788.9mGycm Automated Exposure Control for Dose Reduction was Utilized. CONTRAST: CT scan of the abdomen is performed with oral and without and with IV Contrast, patient injected with 100ml mL of Isovue M300. COMPARISON: PET/CT January 27, 2018 FINDINGS: LUNG BASES: Please refer to same day CT chest report for complete details on lung bases. LIVER/GB: No significant abnormality is appreciated. PANCREAS: No significant abnormality is seen. SPLEEN: No significant abnormality is seen. ADRENALS: No new adrenal masses are present. KIDNEYS: Symmetric cortical medullary uptake and excretion from both kidneys is identified. BOWEL: Stable small hiatal hernia is seen. Oral contrast does not reach terminal ileum. No suspicious small large bowel dilatation is present. Scattered colonic diverticula most prominent in the left an d sigmoid colon are identified. LYMPH NODES: No greater than 1cm abdominal lymph nodes are appreciated. OSSEOUS STRUCTURES: There is multilevel spondylolisthesis as well as disc space narrowing and vacuum disc phenomenon throughout the thoracolumbar spine. Multilevel facet arthropathy is also present. OTHER: Moderate to severe calcified plaque of aorta extends into branch vessels. IMPRESSION: No suspicious new mass or adenopathy identified to suggest metastatic disease.
== END ==
LOC: RADCTMAIN 13:49
PROVIDERS: ATTEND Radiology Radiation Oncology
DX: C34.12 Malignant neoplasm of upper lobe, left bronchus or lung (principal)
CPT/HCPCS: 82565; 84520; 71270; 74170; 36415; Q9967

== ENCOUNTER → 2018-06-01 | Outpatient (CLI) | payer MEDICARE ==
--- NOTE | 2018-06-01 14:41 | FL ---
Modified barium swallow. HISTORY: Dysphagia. Modified barium swallow was performed with the department of speech pathology. The patient was prese nted with various consistencies of barium. There is no evidence for aspiration or penetration. Full report is to follow from the department of speech pathology. Impression: Normal study.
== END | disposition home or self-care (01) ==
LOC: RADFLMAIN 10:43
PROVIDERS: ATTEND Radiology Radiation Oncology
DX: R13.10 Dysphagia, unspecified (principal); Z88.0 Allergy status to penicillin
CPT/HCPCS: 74230

== ENCOUNTER → 2018-08-15 | Outpatient (CLI) | payer MEDICARE ==
[2018-08-15 15:45] LABS: Blood Urea Nitrogen 19 mg/dL (7-17)
--- NOTE | 2018-08-16 11:20 | CT ---
EXAMINATION TYPE: CT chest abdomen w con DATE OF EXAM: 08/15/2018 COMPARISON: CT chest and abdomen April 26, 2018. PET CT January 27, 2018 and older studies. HISTORY: Malignant neoplasm of left upper lobe. Originally diagnosed October 2017 with chemotherapy and radiation treatment CT DLP: 1002.9 mGycm. Automated Exposure Control for Dose Reduction was Utilized. CONTRAST: CT scan of the thorax and abdomen are performed with oral and with IV Contrast, patient injected with 100ml mL of Isovue 300. FINDINGS: LUNGS: Background mild underlying emphysematous changes redemonstrated. There is new small to moderat e left pleural effusion. There is recurrent or enlarging masslike consolidation probable neoplasm lef t suprahilar level encasing upper lung arterial branches extending inferiorly to hilar level on curre nt study measuring roughly 4.5 x 3.0 cm axial image 27on prior exam but smaller mass was present at t his left hilar level, residual neoplasm was more prominent superior to this. Some scarlike opacity posterior medial superior aspect right lower lobe axial image 21 shows more mas slike appearance on current study measuring 2.1 x 1.1 cm. I still favor posttreatment change due to l ocation near the mediastinum. No new peripheral nodules are present. There is increasing anterior med ial scarring in the right lung noted. There is additional scattered scarring and/or atelectasis throu ghout the left mid lung redemonstrated more prominent but improvement in groundglass opacities seen o n prior study. MEDIASTINUM: There is stable and enlarged pericarinal 2.2 x 1.2 cm lymph node axial image 21. No ne w greater than 1 cm adenopathy is present. No cardiomegaly or pericardial effusion is seen. Post CAB G changes with mediastinal clips and sternal wires is redemonstrated. Enlarged main pulmonary artery again seen on axial image 24. Epicardial pacer wires are redemonstrated inferiorly anteriorly. OTHER: No additional significant abnormality is seen. LIVER/GB: Small dependent gallstones in gallbladder are seen better on current study due to increased gallbladder distention. PANCREAS: No significant abnormality is seen. SPLEEN: No significant abnormality is seen. ADRENALS: No definitive no adrenal mass. KIDNEYS: There is 1.8 cm simple appearing cyst left kidney posteriorly mid pole level redemonstrated series 5 image 37. BOWEL: Oral contrast does not reach colonic level. There is no suspicious small or large bowel dilata tion. Small hiatal hernia is redemonstrated. Diverticula in the left and visualized portion of proxim al sigmoid colon are redemonstrated. No CT evidence for acute diverticulitis. GENITAL ORGANS: There is partial visualization of normal size uterus LYMPH NODES: No greater than 1cm abdominal lymph nodes are appreciated. OSSEOUS STRUCTURES: Grade 1 anterolisthesis of L4 on L5. Vacuum disc phenomenon with moderate disc sp jl narrowing L1-L2 and L2-L3 levels. Facet arthropathy lower lumbar levels. Multilevel moderate spur ring in the thoracolumbar spine anteriorly and laterally. OTHER: Moderate to severe calcified plaque of aorta extends into branch vessels IMPRESSION: New small to moderate left pleural effusion with increasing left suprahilar/hilar mass st rongly suspicious for local neoplastic progression. No new metastatic disease is seen.
== END ==
LOC: RADCTMAIN 14:59
PROVIDERS: ATTEND Radiology Radiation Oncology
DX: J90 Pleural effusion, not elsewhere classified (principal); C34.12 Malignant neoplasm of upper lobe, left bronchus or lung; Z92.21 Personal history of antineoplastic chemotherapy
CPT/HCPCS: 82565; 84520; 71260; 74160; 36415; Q9967

== ENCOUNTER → 2018-11-12 | Outpatient (CLI) | payer MEDICARE ==
--- NOTE | 2018-11-12 19:21 | CT ---
EXAMINATION TYPE: CT ChestAbdPelvis w con DATE OF EXAM: 11/12/2018 INDICATION: Lung cancer COMPARISON: 08/15/2018 CT DLP: 1270.1 mGycm CONTRAST: Performed with Oral Contrast and with IV Contrast, patient injected with 80 mL of Isovue 300. TECHNIQUE: Axial images at 5 mm thick sections. Reconstructed images in the coronal plane. Delayed images through the kidneys. FINDINGS: CT CHEST: There is a small pleural thickening along the posterior medial left upper lung which was present prev iously. Tiny pleural-based nodule may be at the same level, series 4 image 17 in the anterior left up per lung field. There is stable streak density within the medial left apex. There is a small left pleural effusion. L eft infrahilar mass is evident with narrowing of the left lower lobe bronchus. This area is currently estimated to measure 3.6 x 2.5 cm which is smaller than the 4.5 x 3.3 cm previous. There is a small left pleural effusion. There is a 1.4 x 2.2 cm pretracheal lymph node present. This is compared to the 2.3 x 1.2 cm previous . The ascending aorta diameter at the level of the main pulmonary artery is 3.2 cm. The main pulmonary artery diameter at the bifurcation is 3.4 cm. Correlate for pulmonary hypertension. Coronary artery calcification is noted. CT ABDOMEN: Liver: Normal Spleen: Normal Pancreas: Normal Adrenal glands: The adrenal glands are normal. Gallbladder: Couple of small gallstones are present. Kidneys: No masses are evident. No hydronephrosis is present. No cysts are present. Delayed images were obtained through the kidneys, which remain unremarkable. Aorta: Vascular calcification is within the aorta. Inferior vena cava: Normal. CT PELVIS: Diverticular changes are within the hepatic flexure. No acute diverticulitis is evident. Scattered di verticuli are through the sigmoid colon. There are loops of bowel which are incompletely distended or lack oral contrast limiting their evaluation. Appendix: Normal as visualized. Urinary bladder: Normal. Genitourinary structures: Uterus contains some popcorn calcification compatible with a fibroid. Adnex al regions are normal. No free fluid is within the pelvis. Osseous structures: No suspicious lytic or sclerotic lesions. Facet degenerative changes are in the l ower lumbar spine IMPRESSIONS: 1. Stable appearance of streak opacity left upper lobe. 2. Left infrahilar mass is smaller than the comparison. 3. Slight thickening of the short axis pretracheal lymph node increased from 1.2 to 1.4 cm. 4. Small stable left pleural effusion
== END | disposition home or self-care (01) ==
LOC: RADCTMAIN 08:53
PROVIDERS: ATTEND Radiology Radiation Oncology
DX: J90 Pleural effusion, not elsewhere classified (principal); R91.8 Other nonspecific abnormal finding of lung field; R91.1 Solitary pulmonary nodule; R59.0 Localized enlarged lymph nodes; C34.12 Malignant neoplasm of upper lobe, left bronchus or lung; Z92.21 Personal history of antineoplastic chemotherapy; Z87.891 Personal history of nicotine dependence
CPT/HCPCS: 82565; 84520; 71260; 74177; 36415; Q9967

== ENCOUNTER 2019-03-09 09:03 | Emergency (ER) | payer MEDICARE ==
[2019-03-09 09:08] VITALS: TEMP 98.7
[2019-03-09] MEDS ORDERED: HYDROcodone/APAP 5-325MG 1 EACH TAB PO STA (09:23)
--- NOTE | 2019-03-09 09:42 | ED ---
Lower Extremity Injury HPI - General Chief Complaint: Extremity Injury, Lower Stated Complaint: Hip pain Time Seen by Provider: 03/09/19 09:14 Source: patient, family, RN notes reviewed Mode of arrival: wheelchair Limitations: no limitations - History of Present Illness Initial Comments: 73-year-old female presents emergency Department with chief complaint of left hip.. Patient states she bent over on and felt a pop right hip. She's had pain ever since. Patient is able to ambulate states it feels better when she flexes her hip or crosses her legs. Patient denies any back pain, bowel bladder incontinence or retention or abdominal pain. She has taken some Tylenol Motrin with minimal relief. Denies any paresthesias. Patient had no prior hip issues including surgeries. - Related Data Home Medications Medication Instructions Recorded Confirmed Furosemide [Lasix] 20 mg PO DAILY 10/04/17 03/09/19 Losartan [Cozaar] 50 mg PO DAILY 10/04/17 03/09/19 Atorvastatin [Lipitor] 40 mg PO HS 03/09/19 03/09/19 Insulin NPH Human Isophane 10 unit SQ QAM 03/09/19 03/09/19 [NovoLIN N] Insulin NPH Human Isophane 12 unit SQ HS 03/09/19 03/09/19 [NovoLIN N] Insulin Regular, Human [NovoLIN R] See Protocol SQ AC-TID 03/09/19 03/09/19 Levothyroxine Sodium [Synthroid] 175 mcg PO DAILY 03/09/19 03/09/19 Metoprolol Tartrate [Lopressor] 50 mg PO BID 03/09/19 03/09/19 Warfarin [Coumadin] 5 mg PO HS 03/09/19 03/09/19 Allergies Allergy/AdvReac Type Severity Reaction Status Date / Time Penicillins Allergy Rash/Hives Verified 03/09/19 09:40 Review of Systems ROS Statement: Those systems with pertinent positive or pertinent negative responses have been documented in the HPI. ROS Other: All systems not noted in ROS Statement are negative. Past Medical History Past Medical History: Coronary Artery Disease (CAD), Cancer, Chest Pain / Angina, Hyperlipidemia, Hypertension, Myocardial Infarction (non Q-wave), Osteoarthritis (OA), Thyroid Disorder Additional Past Medical History / Comment(s): Non small cell L upper lobe lung cancer-completed chemo/radiation and was to receive 3rd dose of immunotherapy today, arthritis multiple joints/back, chronic low back pain, asthma as a child, hypothyroid. Last Myocardial Infarction Date:: 2005 History of Any Multi-Drug Resistant Organisms: None Reported Past Surgical History: Adenoidectomy, Coronary Bypass/CABG, Heart Catheterization, Heart Catheterization With Stent, Tonsillectomy Additional Past Surgical History / Comment(s): L caratid endartectomy, PCI with multiple stents, 2005 CABG 3 vessels, colonoscopy, hemangioma removed from around mouth when a child Past Anesthesia/Blood Transfusion Reactions: No Reported Reaction, Motion Sickness Additional Past Anesthesia/Blood Transfusion Reaction / Comment(s): Daughter believes pt received blood with CABG surgery. Date of Last Stent Placement:: 2005 Past Psychological History: No Psychological Hx Reported Smoking Status: Former smoker - Past Family History Father Family Medical History: Cancer Additional Family Medical History / Comment(s): Father had prostrate cancer. Mother Family Medical History: Respiratory Disorder Additional Family Medical History / Comment(s): Mother had lung disease. General Exam Limitations: no limitations General appearance: alert, in no apparent distress Head exam: Present: atraumatic, normocephalic, normal inspection Neck exam: Present: normal inspection, full ROM. Absent: tenderness, meningismus, lymphadenopathy Respiratory exam: Present: normal lung sounds bilaterally. Absent: respiratory distress, wheezes, rales, rhonchi, stridor Cardiovascular Exam: Present: regular rate, normal rhythm, normal heart sounds. Absent: systolic murmur, diastolic murmur, rubs, gallop, clicks Extremities exam: Present: other (Mild tenderness to left hip, pain with straight leg raise, internal and external rotation legs are neurovascular intact equal color equal warmth) Back exam: Present: full ROM. Absent: tenderness, CVA tenderness (R), CVA tenderness (L), paraspinal tenderness, vertebral tenderness Skin exam: Present: warm, dry, intact, normal color. Absent: rash Course Vital Signs 03/09/19 09:05 Temperature 98.7 F Pulse Rate 104 H Respiratory 18 Rate Blood Pressure 162/73 O2 Sat by Pulse 96 Oximetry Medical Decision Making - Medical Decision Making X-rays of the left hip are negative for acute fracture, abnormality or chronic arthritic changes. Patient's symptoms are consistent with left hip strain. Patient we try conservative treatment follow-up with PCP and return parameters were discussed. Disposition Clinical Impression: Strain of left hip Disposition: HOME SELF-CARE Condition: Stable Instructions (If sedation given, give patient instructions): Hip Sprain (ED) Additional Instructions: Please return to the Emergency Department if symptoms worsen or any other concerns. Is patient prescribed a controlled substance at d/c from ED?: No Referrals: Rosemary Bagley MD [Primary Care Provider] - 1-2 days Vishal Adam DO [Doctor of Osteopathic Medicine] - 1-2 days Time of Disposition: 10:08
--- NOTE | 2019-03-09 09:56 | XR ---
EXAMINATION TYPE: XR Hip LT and AP Pelvis , 3 VIEWS DATE OF EXAM ORDERED: 03/09/2019 HISTORY: pain. COMPARISON: None. FINDINGS: There are degenerative changes in the lower lumbar spine. Obvious structures about the pelvis are unremarkable with no pelvic fracture or dislocation. There ar e mild degenerative changes within the left hip. No fracture is seen. Note is made of vascular calcification and previous vascular surgery on the left. IMPRESSION: 1. NO ACUTE OSSEOUS LESION. 2. DEGENERATIVE CHANGE.
[2019-03-09] MEDS ORDERED: ACET/COD 300 MG/30 MG STARTER PACK 6 TAB BTL PO STA (10:09)
[2019-03-09 10:15] VITALS: BP 160/70; PULSE 90; RESP 16
== END 2019-03-09 10:14 | disposition home or self-care (01) ==
LOC: EC 09:03
DX: S76.012A Strain of muscle, fascia and tendon of left hip, initial encounter (principal); I25.119 Atherosclerotic heart disease of native coronary artery with unspecified angina pectoris; I10 Essential (primary) hypertension; E78.5 Hyperlipidemia, unspecified; I25.2 Old myocardial infarction; Z79.4 Long term (current) use of insulin; Z79.890 Hormone replacement therapy; Z79.01 Long term (current) use of anticoagulants; Z79.899 Other long term (current) drug therapy; Z88.0 Allergy status to penicillin; Z95.1 Presence of aortocoronary bypass graft; Z95.5 Presence of coronary angioplasty implant and graft; Z87.891 Personal history of nicotine dependence; Z85.118 Personal history of other malignant neoplasm of bronchus and lung; X50.9XXA Other and unspecified overexertion or strenuous movements or postures, initial encounter
CPT/HCPCS: 73502; 99283

== ENCOUNTER → 2019-03-12 | Outpatient (CLI) | payer MEDICARE ==
--- NOTE | 2019-03-12 10:07 | CT ---
EXAMINATION TYPE: CT chest w con DATE OF EXAM: 03/12/2019 COMPARISON: 11/12/2018 CT chest, abdomen, and pelvis HISTORY: LEFT LUNG CA FOLLOWUP CT DLP: 559 mGycm. Automated Exposure Control for Dose Reduction was Utilized. TECHNIQUE: CT scan of the thorax is performed following with IV Contrast, patient injected with 100 mL of Isovue 300. FINDINGS: LUNGS: Post therapy change/radiation change is seen in the left upper lobe and left perihilar region. Soft tissue nodule again surrounds the left hilum and slightly narrows the segmental branches of the left main pulmonary artery. This is smaller than on the prior exam and when measured at a similar le kana measures approximately 2.8 x 1.2 cm and previously measured 2.9 x 1.9 cm. This is marked on serie s 3 image 25. Inferior to this the peribronchial consolidation has also decreased in size. It is diff icult to measure however these thickness of the peribronchial cuffing measures up to 7 mm on the curr ent exam and previously measured up to 1.5 cm on the prior. It is uncertain where consolidation was m easured on the prior of 11/12/2018 for direct comparison. Overall there is improvement however. Upper l obe atelectasis and/or post therapy change appears similar as well currently measuring up to 1.0 cm i n thickness and previously measuring up to 1.2 cm. Small left pleural effusion is loculated seen both anteriorly and posteriorly. Pleural thickening on the left is also likely posttreatment change. Findings are similar to the prior. Nodular consolidation of the medial right lower lobe on series 4 image 21 measures 0.6 x 1.4 cm as op posed to 1.8 x 1.0 cm on the prior. MEDIASTINUM: The previously seen pretracheal lymph node that measured 1.4 x 2.2 cm has also improved now measuring 1.2 x 2.1 cm. Post CABG changes are seen of the coronary arteries with moderate to sev ere atherosclerosis of the thoracic aorta. Pulmonary artery is again also prominent in size. This may represent underlying pulmonary arterial hypertension. OTHER: There is a small hiatal hernia present subtle and mild left hepatic lobe intrahepatic biliary ductal dilatation is similar. Moderate multilevel degenerative changes of the spine. IMPRESSION: 1. Continued response to treatment. The left infrahilar mass/consolidation and perihilar nodule are b oth decreased in size in comparison to the prior as is the pretracheal lymph node. 2. Smaller size of the medial right lung consolidation, possible atelectasis or additional improving pulmonary nodule. 3. Stable left loculated pleural effusion, small. 4. No new pulmonary nodules and no new mediastinal lymph nodes.
== END | disposition home or self-care (01) ==
LOC: RADCTMAIN 08:03
PROVIDERS: ATTEND Internal Medicine Hematology & Oncology
DX: J90 Pleural effusion, not elsewhere classified (principal); C34.12 Malignant neoplasm of upper lobe, left bronchus or lung; Z88.0 Allergy status to penicillin
CPT/HCPCS: 82565; 84520; 71260; 36415; Q9967

== ENCOUNTER → 2019-06-17 | Outpatient (CLI) | payer MEDICARE ==
[2019-06-17 15:38] LABS: HCT 40.1 % (34.0-46.0); HGB 12.7 gm/dL (11.4-16.0); MCH 31.5 pg (25.0-35.0); MCHC 31.8 g/dL (31.0-37.0); Mean Platelet Volume 8.9; Platelet Count 141 k/uL (150-450); RBC 4.05 m/uL (3.80-5.40); RDW 12.7 % (11.5-15.5); WBC 4.3 k/uL (3.8-10.6)
[2019-06-17 22:45] LABS: Potassium 4.1 mmol/L (3.5-5.1)
== END | disposition home or self-care (01) ==
LOC: LABPAT 14:41
PROVIDERS: ATTEND Internal Medicine Interventional Cardiology
DX: Z01.812 Encounter for preprocedural laboratory examination (principal); I25.5 Ischemic cardiomyopathy
CPT/HCPCS: 80051; 82565; 84520; 85027

== ENCOUNTER → 2019-06-18 | Day surgery (SDC) | payer MEDICARE ==
[2019-06-17 08:29] VITALS: BMI 35.4
[~2019-06-18] MED LIST changes: +ALPRAZolam 0.25 MG TAB PO PRN; +ALPRAZolam 0.5 MG TAB PO PRN; +ASPIRIN 325 MG TAB PO STA; +INSULIN ASPART (NovoLOG) 100 UNIT/ML VIAL SQ ONE; -LACTATED RINGERS 1,000 ML IV SCH; +NITROGLYCERIN SL TABS 0.4 MG TAB SUBLINGUAL PRN; -Pre Op ABX Message 1 EACH MISC MISCELLANE ONE; +SODIUM CHLORIDE 0.9% 1,000 ML IV ONE; +SODIUM CHLORIDE 0.9% 1,000 ML in EMPTY BAG 1 BAG IV ONE
[2019-06-18 09:43] LABS: Glucose,Whole Blood 293 mg/dL (75-99)
[2019-06-18 09:46] LABS: Basophils % (A) 1 %; Eosinophils % (A) 0 %; HCT 45.1 % (34.0-46.0); HGB 14.1 gm/dL (11.4-16.0); Hypochromasia Slight; Lymphocytes % (A) 15 %; MCH 31.2 pg (25.0-35.0); MCHC 31.2 g/dL (31.0-37.0); MCV 99.9 fL (80.0-100.0); Mean Platelet Volume 9.1; Monocytes # (A) 0.4 k/uL (0-1.0); Monocytes % (A) 6 %; Neutrophils % (A) 77 %; Platelet Count 156 k/uL (150-450); RBC 4.51 m/uL (3.80-5.40); RDW 12.8 % (11.5-15.5); WBC 6.6 k/uL (3.8-10.6)
[2019-06-18 09:54] LABS: INR 1.1 (<1.2)
[2019-06-18 09:55] LABS: Calcium 9.4 mg/dL (8.4-10.2); Potassium 4.4 mmol/L (3.5-5.1); Prothrombin Time 10.9 sec (9.0-12.0)
[2019-06-18 13:56] VITALS: BP 141/77; PULSE 84; RESP 16; TEMP 97.5
== END ==
LOC: CATHCVL 09:13
PROVIDERS: ATTEND Internal Medicine Interventional Cardiology
DX: I25.5 Ischemic cardiomyopathy (principal); Z53.8 Procedure and treatment not carried out for other reasons
CPT/HCPCS: 80048; 85025; 85610

== ENCOUNTER → 2019-06-24 | Day surgery (SDC) | payer MEDICARE ==
[2019-06-20 09:40] VITALS: BMI 35.4
[~2019-06-24] MED LIST changes: +ATORVASTATIN 80 MG TAB PO STA; +IOPAMIDOL-370 100ML BTL INJ ONE; +LIDOCAINE 1% INJ 10MG/ML (20 ML MDV) SQ ONE; -SODIUM CHLORIDE 0.9% 1,000 ML IV ONE
[2019-06-24 06:56] LABS: Glucose,Whole Blood 292 mg/dL (75-99)
[2019-06-24 06:58] VITALS: TEMP 98
[2019-06-24] MEDS: INSULIN ASPART (NovoLOG) 100 UNIT/ML VIAL SQ SCH ×2 (07:00→09:04)
[2019-06-24 07:06] LABS: INR 1.1 (<1.2); Prothrombin Time 10.9 sec (9.0-12.0)
[2019-06-24] MEDS: MIDAZOLAM 2 MG/2 ML VIAL IV ONE ×2 (07:39→08:19)
[2019-06-24 07:48] VITALS: RESP 14
[2019-06-24] MEDS: NITROGLYCERIN 1000MCG/10ML SYRINGE INTRACORON ONE ×2 (08:01→08:14)
[2019-06-24 08:52] LABS: Glucose,Whole Blood 275 mg/dL (75-99)
--- NOTE | 2019-06-24 09:29 | CC ---
CARDIAC CATHETERIZATION REPORT DATE OF SERVICE: 06/24/2019. PROCEDURE: Left heart catheterization, coronary angiography and selective injection of bypass grafts. PERFORMED BY: Dr. Eric Villarreal. Moderate conscious sedation time was 42 minutes. Patient was administered Versed. Oxygen saturation, hemodynamics and EKG were monitored closely. CLINICAL INFORMATION: Mrs. Laurie Green is a 73-year-old lady with a known history of CAD, hypertension, hyperlipidemia, smoking, COPD, lung cancer, status post chemo and radiation therapy. In February, she underwent aortocoronary bypass surgery. She had both CAD and peripheral arterial disease. She did not have a good CONTRERAS. Therefore, the CONTRERAS was not used. There were 2 vein grafts placed, one was a vein graft to the LAD and another was a vein graft to the obtuse marginal. From the second vein graft to the obtuse marginal, a free right internal mammary graft was used and the proximal end of this graft was attached to the vein graft to the OM and the distal end to the ramus intermedius. This surgery was performed on February 13, 2006. Subsequently, this lady presented with a non-ST elevation MA and had total occlusion of the vein graft to the LAD. I performed stenting of the entire vein graft at that time, and again the vein graft was totally occluded. On October 11, 2007, I performed a high-risk PCI of ostium of the left main as well as the body of the left main and this was performed with a cutting balloon and then I deployed a 4.0 caliber 8 mm long Vision stent in the ostium of the left main and then post dilated it with a 4.5 caliber [employer] Noncompliant balloon of 20 mm length and most of this balloon was kept outside the left main. At that time, the coquille RCA was occluded. Vein graft to the LAD was occluded, but the vein graft to the OM with a secondary supply to the ramus was patent. She did well since then, but eventually quit smoking, developed lung cancer, had chemo and radiation. She then presents with symptoms of angina, positive stress test with a fixed and reversible defect in multiple areas suggestive of progression of coronary disease and I advised coronary angiography after due discussion with the patient and daughter. Risks, benefits, options, rationale were explained. PROCEDURE NOTE: Under local anesthesia and strict aseptic precautions, a 6-Yakut introducer was placed in the right femoral artery. I used a standard left Braden catheter but I could not get selective coronary angiography. I switched over to an XBLAD 3.5 guide catheter. With this, I had selective injection of the left system. I then used an AR2 catheter. With this I performed coquille RCA injection and vein graft to the obtuse marginal. The 2nd vein graft to the LAD was totally occluded that was also seen. I then took the sheath out and used manual compression to secure hemostasis. I also checked LV pressures using a pigtail catheter but did not perform an LV gram. CARDIAC CATHETERIZATION FINDINGS: The left ventricular end-diastolic pressure was about 18 to 20 mmHg with a gradient of less than 10 mmHg across the aortic valve. CORONARY ANGIOGRAPHY FINDINGS: RIGHT CORONARY ARTERY: This vessel is totally occluded and has limited antegrade flow. It appears to be a small nondominant vessel. With very limited antegrade flow is noted, has a subtotal occlusion proximally. LEFT MAIN CORONARY ARTERY: This was stented in 2007, now the stented area is patent. There is however a lesion in the body of the graft of about 65% to 70% eccentric in nature and then the left main bifurcates into LAD and circumflex. The ostium of the left main appears to be patent with no more than 10% to 15% disease. LEFT ANTERIOR DESCENDING CORONARY ARTERY: This vessel has about a 50% to 60% proximal lesion. In the midportion, the LAD has about a 50% stenosis and then gives off a large septal branch. After the septal branch, there is a very tortuous segment of LAD, which also has a 50% to 55% narrowing. LAD therefore has diffuse moderate disease. LEFT POSTERIOR CIRCUMFLEX CORONARY ARTERY: Technically a very dominant vessel that is quite tortuous proximally has a 40% to 50% stenosis. Midportion it gives off at least 2 obtuse marginal branches, runs distally and has moderate diffuse disease of about 40% to 50%. There are some collaterals coming to the distal PDA branch of the distal circumflex. SAPHENOUS VEIN GRAFT TO THE LAD: This graft is totally occluded, seen as a stump. SAPHENOUS VEIN GRAFT TO THE OBTUSE MARGINAL BRANCH OF CIRCUMFLEX: This graft is widely patent at its origin course insertion site and opacified obtuse marginal is free of significant disease. This graft had another attachment to the ramus and this ramus attachment is now totally occluded and seen as a stump. FINAL IMPRESSION: This patient has elevated filling pressures, less than 10 mm gradient across aortic valve, RCA is nondominant, has limited antegrade flow with subtotal proximal occlusion. Left main has within the proximal portion of the body of 65% to 70% stenosis within the previously stented segment. The LAD has moderate 40% to 50% diffuse disease and circumflex, which is a dominant vessel, also has moderate 40% to 50% diffuse disease. The vein graft to the obtuse marginal is patent, but the secondary attachment from this vein graft to the ramus is totally occluded. Vein graft to the LAD is totally occluded. RECOMMENDATIONS: I will first optimize medical therapy and we will discuss option of continued medical therapy versus high-risk PCI. The patient will be discharged today after hydration and I will discuss this in the office and look at other options. Explained my thoughts in detail with the patient and family. We will pursue medical therapy and I will add Imdur 30 mg daily to her regimen. KRISTEN / REANNA: [id number] /
[2019-06-24 12:09] LABS: Glucose,Whole Blood 336 mg/dL (75-99)
[2019-06-24 16:24] VITALS: BP 136/65; PULSE 66
== END ==
LOC: CATHCVL 06:28
PROVIDERS: ATTEND Internal Medicine Interventional Cardiology
DX: I25.119 Atherosclerotic heart disease of native coronary artery with unspecified angina pectoris (principal); T82.858A Stenosis of other vascular prosthetic devices, implants and grafts, initial encounter; I77.1 Stricture of artery; I48.0 Paroxysmal atrial fibrillation; I10 Essential (primary) hypertension; I25.5 Ischemic cardiomyopathy; E78.00 Pure hypercholesterolemia, unspecified; R09.89 Other specified symptoms and signs involving the circulatory and respiratory systems; E78.5 Hyperlipidemia, unspecified; J44.9 Chronic obstructive pulmonary disease, unspecified; I73.9 Peripheral vascular disease, unspecified; I25.2 Old myocardial infarction; Z95.1 Presence of aortocoronary bypass graft; Z95.5 Presence of coronary angioplasty implant and graft; Z85.118 Personal history of other malignant neoplasm of bronchus and lung; Z92.21 Personal history of antineoplastic chemotherapy; Z92.3 Personal history of irradiation; Z79.899 Other long term (current) drug therapy; Z79.890 Hormone replacement therapy; Z79.4 Long term (current) use of insulin; Z79.01 Long term (current) use of anticoagulants; Z88.0 Allergy status to penicillin; Z98.890 Other specified postprocedural states; Z87.891 Personal history of nicotine dependence
CPT/HCPCS: 93459; 85610; C1887; C1894; C1769 ×2; J2250; J2001; Q9967

== ENCOUNTER → 2019-07-13 | Outpatient (CLI) | payer MEDICARE ==
--- NOTE | 2019-07-16 06:56 | PE ---
EXAMINATION TYPE: PET CT fusion skull to thigh DATE OF EXAM: 07/13/2019 COMPARISON: Prior chest CT July 01, 2019 and older CTs. PET/CT January 27, 2018 HISTORY: Left-sided lung cancer diagnosed 2018 completed chemotherapy and radiation treatment October 2017. TECHNIQUE: Following the intravenous administration of 12.76 mCi of F-18 FDG, whole body images are performed from the skull base to the midthigh. Images are reviewed on the computer in the coronal, a xial, and sagittal planes. Reconstructed rotating images are created on independent workstation and reviewed on the computer. A noncontrast CT is performed in conjunction with the PET scan. SCAN: Subsequent Scan Blood sugar noted 142 at time of scanning. FINDINGS: SKULL BASE AND NECK: No new areas of suspicious hypermetabolic uptake. CHEST, MEDIASTINUM, AND HILAR REGION: There is background mild to moderate chronic emphysematous walker ge greatest in upper lungs with persistent small to moderate-sized left pleural effusion not signific antly changed in size from most recent CT. Persistent left hilar masslike consolidation without recur rent abnormal hypermetabolic uptake. No new areas of abnormal hypermetabolic uptake are present. ABDOMEN AND PELVIS: Normal excretion is seen. No new areas of abnormal hypermetabolic uptake. OSSEOUS STRUCTURES: No new areas of abnormal hypermetabolic uptake. OTHER CT: Moderate to severe calcified plaque right carotid bulb. More mild plaque left carotid bulb. Post-CABG changes with overlying sternal wires and mediastinal clips. Calcification at level of enoc l and aortic valve. Moderate to severe calcified plaque abdominal aorta extending into branch vessels. Sigmoid colonic di verticulosis. Calcified subserosal fibroid axial image 202. Grade 1 anterolisthesis L4 on L5. Multilevel spurring throughout the thoracolumbar spine. Multilevel focal vacuum disc phenomenon and disc space narrowing. IMPRESSION: No areas of new or residual hypermetabolic uptake to suggest recurrent active malignancy.
== END | disposition home or self-care (01) ==
LOC: RADPETMAIN 09:38
PROVIDERS: ATTEND Internal Medicine Hematology & Oncology
DX: C34.12 Malignant neoplasm of upper lobe, left bronchus or lung (principal)
CPT/HCPCS: 78815; A9552

== ENCOUNTER → 2019-11-06 | Outpatient (CLI) | payer MEDICARE ==
[2019-11-06 11:34] LABS: HCT 39.7 % (34.0-46.0); HGB 12.8 gm/dL (11.4-16.0); Hypochromasia Slight; MCH 32.3 pg (25.0-35.0); MCHC 32.3 g/dL (31.0-37.0); MCV 99.9 fL (80.0-100.0); Mean Platelet Volume 8.7; Platelet Count 135 k/uL (150-450); RBC 3.97 m/uL (3.80-5.40); RDW 13.3 % (11.5-15.5); WBC 5.5 k/uL (3.8-10.6)
[2019-11-06 18:31] LABS: Hemoglobin A1C 7.9 % (4.0-6.0)
[2019-11-06 18:46] LABS: African American GFR (CKD) 57.7 (60.0-200.0); Anion Gap 5.5 mmol/L (4.00-12.00); BUN/Creat Ratio 33.64 Ratio (12.00-20.00); Calcium 8.9 mg/dL (8.7-10.3); Carbon Dioxide 24.5 mmol/L (21.6-31.8); Magnesium 1.7 mg/dL (1.5-2.4); Non-African American GFR(CKD) 49.8 (60.0-200.0); Potassium 4.8 mmol/L (3.5-5.5)
[2019-11-06 20:31] LABS: INR 1.65 (0.90-1.11); Prothrombin Time 17.3 sec (9.9-11.9)
== END | disposition home or self-care (01) ==
LOC: LABWHC1 09:00
PROVIDERS: ATTEND Internal Medicine Interventional Cardiology
DX: E11.65 Type 2 diabetes mellitus with hyperglycemia (principal); E03.9 Hypothyroidism, unspecified; E55.9 Vitamin D deficiency, unspecified; I10 Essential (primary) hypertension; I25.118 Atherosclerotic heart disease of native coronary artery with other forms of angina pectoris
CPT/HCPCS: 36415; 80048; 82306; 83036; 83735; 84439; 84443; 85027; 85610

== ENCOUNTER → 2020-01-06 | Outpatient (CLI) | payer MEDICARE ==
--- NOTE | 2020-01-07 18:24 | CT ---
EXAMINATION TYPE: CT chest w con DATE OF EXAM: 01/06/2020 COMPARISON: CT chest 07/01/2019. PET/CT 07/13/2019. HISTORY: Lung cancer. CT DLP: 338.5 mGycm Automated exposure control for dose reduction was used. CONTRAST: CT scan of the chest is performed with IV Contrast, patient injected with 80 mL of Isovue M300. FINDINGS: LUNGS: Moderate left pleural effusion and left hilar masslike opacity is unchanged. 2 mm pulmonary no dule of the right lower lobe unchanged (4:38). No pneumothorax. The tracheobronchial tree is patent. MEDIASTINUM/SOFT TISSUES: No axillary, hilar, or mediastinal lymphadenopathy greater than 1 cm. Redem onstrated cardiomegaly. Calcified coronary artery disease. No pericardial effusion. No thoracic aorti c aneurysm. Of the right atherosclerotic disease. The main pulmonary artery is enlarged measuring up to 2.5 cm. UPPER ABDOMEN: No adrenal nodule. OSSEOUS: Sternotomy wires. Degenerative changes of the spine. IMPRESSION: 1. Moderate left pleural effusion and left perihilar masslike opacity not significantly changed versu s 07/01/2019 and 07/13/2019 comparison. 2. Enlarged pulmonary artery may represent pulmonary arterial hypertension.
== END | disposition home or self-care (01) ==
LOC: RADCTMAIN 12:36
PROVIDERS: ATTEND Internal Medicine Hematology & Oncology
DX: R91.8 Other nonspecific abnormal finding of lung field (principal); I28.8 Other diseases of pulmonary vessels; J90 Pleural effusion, not elsewhere classified; C34.12 Malignant neoplasm of upper lobe, left bronchus or lung; Z88.0 Allergy status to penicillin
CPT/HCPCS: 82565; 84520; 71260; 36415; Q9967

== ENCOUNTER → 2020-08-12 | Outpatient (CLI) | payer MEDICARE ==
--- NOTE | 2020-08-12 11:24 | CT ---
EXAMINATION TYPE: CT chest w con DATE OF EXAM: 08/12/2020 COMPARISON: 01/06/2020 HISTORY: follow up to lung CA CT DLP: 378.2 mGycm, Automated exposure control for dose reduction was used. CONTRAST: Performed injected with 80 mL of Isovue 300. TECHNIQUE: Axial images were obtained at 5 mm thick sections. Reconstructed images are reviewed on t computer in the coronal plane. FINDINGS: The thyroid is not visualized. There is a small left pleural effusion. Some minimal compressive atelectasis in the posterior right l raven base may be present. Punctate nodule in the posterior lateral right lung base, series 4 image 37, stable from comparison. There is a 7.8 x 3.3 cm area of increased density along the medial portion left upper lung field at t he level of the aortic arch compatible with patient's reported lung cancer. This may be stable from t he comparison. This extends towards the left hilum. There is a 1.0 cm enlarged lymph node pretracheal space. The ascending aorta diameter at the level o f the main pulmonary artery is 3.1 cm. The main pulmonary artery diameter at the bifurcation is 3.8 cm. Correlate for pulmonary hypertension. Mild cardiomegaly is present. Limited CT sections are obtained through the upper abdomen. There may be a small gallstone in the fun dus of the gallbladder. Small hiatal hernia may be present. IMPRESSIONS: 1. Recurrent left upper lobe mass measures 7.8 x 3.3 cm. Previous measurement 7.5 x 4.0 cm. 2. 1 cm lymph node pretracheal space. This may be new. 3. Small left pleural effusion, increased from comparison. 4. Cardiomegaly
== END | disposition home or self-care (01) ==
LOC: RADCTMAIN 09:07
PROVIDERS: ATTEND Internal Medicine Hematology & Oncology
DX: C34.12 Malignant neoplasm of upper lobe, left bronchus or lung (principal); J90 Pleural effusion, not elsewhere classified; I51.7 Cardiomegaly
CPT/HCPCS: 71260; Q9967

== ENCOUNTER → 2020-08-21 | Outpatient (CLI) | payer MEDICARE ==
--- NOTE | 2020-08-23 14:31 | PE ---
EXAMINATION TYPE: PET CT fusion skull to thigh DATE OF EXAM: 08/21/2020 COMPARISON: Prior PET/CT July 13, 2019 and older studies. Most recent chest CT August 12, 2020. HISTORY: Left-sided lung cancer diagnosed 2018. TECHNIQUE: Following the intravenous administration of 10.83 mCi of F-18 FDG, whole body images are performed from the skull base to the midthigh. Images are reviewed on the computer in the coronal, a xial, and sagittal planes. Reconstructed rotating images are created on independent workstation and reviewed on the computer. A localization and attenuation correction CT is performed in conjunction with the PET scan. Blood glucose level equals 192. SCAN: Subsequent Scan FINDINGS: SKULL BASE AND NECK: No new areas of suspicious hypermetabolic uptake. CHEST, MEDIASTINUM, AND HILAR REGION: There is background mild to moderate chronic emphysematous walker ge greatest in upper lungs with persistent small to moderate-sized left pleural effusion or fluid col lection, this is slightly larger with more apical extension versus prior PET/CT. Stable left hilar ma sslike consolidation without recurrent abnormal hypermetabolic uptake near axial image 73 extending s uperiorly. Stable prominent borderline enlarged pericarinal lymph node axial image 76 remains ametabo lic, not significantly changed in size from prior PET/CT. No new areas of abnormal hypermetabolic upt yesica are present. ABDOMEN AND PELVIS: Normal excretion is seen. No new areas of abnormal hypermetabolic uptake. OSSEOUS STRUCTURES: No new areas of abnormal hypermetabolic uptake. OTHER CT: Moderate to severe calcified plaque right carotid bulb redemonstrated. More mild plaque lef t carotid bulb. Post-CABG changes with overlying sternal wires and mediastinal clips redemonstrated. Calcification at level of mitral and aortic valve redemonstrated. Moderate to severe calcified plaque entire aorta extending into branch vessels. Sigmoid colonic diver ticulosis. Calcified subserosal fibroid axial image 193. Grade 1 anterolisthesis L4 on L5. Multilevel spurring throughout the thoracolumbar spine. Multilevel vacuum disc phenomenon and disc space narrowing in the lumbar spine. IMPRESSION: No areas of new hypermetabolic uptake to suggest recurrent active malignancy. Small to mo derate size left pleural fluid collection shows interval increase in size or enlargement from most re cent PET/CT.
== END | disposition home or self-care (01) ==
LOC: RADPETMAIN 14:47
PROVIDERS: ATTEND Internal Medicine Hematology & Oncology
DX: C34.12 Malignant neoplasm of upper lobe, left bronchus or lung (principal)
CPT/HCPCS: 78815; A9552

== ENCOUNTER 2020-10-18 06:32 | Inpatient (IN) | payer MEDICARE ==
[2020-10-18] MEDS ORDERED: SODIUM CHLORIDE 0.9% 500 ML 500 ML IV STA (06:45)
[2020-10-18] MEDS ORDERED: ACETAMINOPHEN TAB 500 MG TAB PO STA (06:46)
--- NOTE | 2020-10-18 06:55 | ED ---
General Adult HPI - General Chief complaint: Shortness of Breath Stated complaint: Fever Time Seen by Provider: 10/18/20 06:36 Source: patient, EMS, RN notes reviewed Mode of arrival: EMS Limitations: no limitations - History of Present Illness Initial comments: 75-year-old female presents emergency department via EMS from home chief complaint of a fever. Last couple days noticed the fever with no other complaints denies cough, congestion, sore throat, runny nose, headache, dizziness, neck pain neck stiffness, nausea, vomiting, diarrhea constipation no chest pain or shortness of breath. She denies any urinary symptoms including urinary frequency or dysuria patient does have a history of lung cancer in remission on chemotherapy currently. Patient's had no sick contacts. Patient has been vaccinated for COVID-19. - Related Data Home Medications Medication Instructions Recorded Confirmed Losartan [Cozaar] 50 mg PO DAILY 10/04/17 06/24/19 Atorvastatin [Lipitor] 40 mg PO HS 03/09/19 06/24/19 Levothyroxine Sodium [Synthroid] 175 mcg PO DAILY 03/09/19 06/24/19 Furosemide [Lasix] 20 mg PO DAILY PRN 06/17/19 06/24/19 Insulin NPH Human Isophane 12 units SQ QAM 06/17/19 06/24/19 [NovoLIN N] Insulin NPH Human Isophane 14 units SQ 2100 06/17/19 06/24/19 [NovoLIN N] Insulin Regular, Human [NovoLIN R] 0 unit SQ AC-TID PRN 06/17/19 06/24/19 Metoprolol Tartrate [Lopressor] 50 mg PO TID 06/17/19 06/24/19 Spironolactone 12.5 mg PO DAILY 06/17/19 06/24/19 Warfarin [Coumadin] 2.5 mg PO SUMOTUWETHSA 06/17/19 06/24/19 Allergies Allergy/AdvReac Type Severity Reaction Status Date / Time Penicillins Allergy Rash/Hives Verified 10/18/20 06:40 Review of Systems ROS Statement: Those systems with pertinent positive or pertinent negative responses have been documented in the HPI. ROS Other: All systems not noted in ROS Statement are negative. 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 Last Myocardial Infarction Date:: 2005 History of Any Multi-Drug Resistant Organisms: None Reported Past Surgical History: Adenoidectomy, Coronary Bypass/CABG, Heart Catheterization, Heart Catheterization With Stent, Tonsillectomy Additional Past Surgical History / Comment(s): L caratid endartectomy, PCI with multiple stents, 2005 CABG 3 vessels, colonoscopy, hemangioma removed from around mouth when a child Past Anesthesia/Blood Transfusion Reactions: No Reported Reaction, Motion Sickne ss Additional Past Anesthesia/Blood Transfusion Reaction / Comment(s): Daughter believes pt received blood with CABG surgery. Date of Last Stent Placement:: 2005 Past Psychological History: No Psychological Hx Reported Smoking Status: Former smoker Past Alcohol Use History: None Reported Past Drug Use History: None Reported - Past Family History Father Family Medical History: Cancer Additional Family Medical History / Comment(s): Father had prostrate cancer. Mother Family Medical History: Respiratory Disorder Additional Family Medical History / Comment(s): Mother had lung disease. General Exam Limitations: no limitations General appearance: alert, in no apparent distress Head exam: Present: atraumatic, normocephalic, normal inspection Eye exam: Present: normal appearance, PERRL, EOMI. Absent: scleral icterus, conjunctival injection, periorbital swelling Respiratory exam: Present: normal lung sounds bilaterally. Absent: respiratory distress, wheezes, rales, rhonchi, stridor Cardiovascular Exam: Present: normal rhythm, tachycardia, normal heart sounds. Absent: systolic murmur, diastolic murmur, rubs, gallop, clicks GI/Abdominal exam: Present: soft, normal bowel sounds. Absent: distended, tenderness, guarding, rebound, rigid Back exam: Absent: CVA tenderness (R), CVA tenderness (L) Neurological exam: Present: alert Skin exam: Present: warm, dry, intact, normal color. Absent: rash Course Vital Signs 10/18/20 10/18/20 10/18/20 06:35 06:40 08:54 Temperature 99.2 F 98.0 F Pulse Rate 117 H 103 H Respiratory 16 18 20 Rate Blood Pressure 108/70 109/76 O2 Sat by Pulse 94 L 99 Oximetry Medical Decision Making - Medical Decision Making 75-year-old female presented for fever. A Shantz urinalysis shows evidence of urinary tract infection. Patient was given 2 g Rocephin blood cultures were drawn lactic is elevated. Patient does have acute kidney injury, started on fluid bolus, maintenance fluids. Patient does have an elevated troponin without specific EKG changes are complaint chest pain. Patient's cardiac enzymes will be trended patient is currently anticoagulated. Case discussed with Dr. Sneed with some physician. - Lab Data Result diagrams: 10/18/20 06:52 10/18/20 06:52 Lab Results 10/18/20 10/18/20 10/18/20 Range/Units 06:52 06:52 06:52 WBC 11.7 H (3.8-10.6) k/uL RBC 4.04 (3.80-5.40) m/uL Hgb 12.9 (11.4-16.0) gm/dL Hct 39.7 (34.0-46.0) % MCV 98.4 (80.0-100.0) fL MCH 31.9 (25.0-35.0) pg MCHC 32.4 (31.0-37.0) g/dL RDW 14.4 (11.5-15.5) % Plt Count 107 L (150-450) k/uL MPV 9.5 Neutrophils % 95 % Lymphocytes % 1 % Monocytes % 3 % Eosinophils % 0 % Basophils % 0 % Neutrophils # 11.1 H (1.3-7.7) k/uL Lymphocytes # 0.2 L (1.0-4.8) k/uL Monocytes # 0.4 (0-1.0) k/uL Eosinophils # 0.0 (0-0.7) k/uL Basophils # 0.0 (0-0.2) k/uL Hypochromasia Slight PT 25.1 H (9.0-12.0) sec INR 2.6 H (<1.2) APTT 26.2 (22.0-30.0) sec Sodium 131 L (137-145) mmol/L Potassium 5.3 H (3.5-5.1) mmol/L Chloride 100 (98-107) mmol/L Carbon Dioxide 14 L (22-30) mmol/L Anion Gap 17 mmol/L BUN 55 H (7-17) mg/dL Creatinine 2.30 H (0.52-1.04) mg/dL Est GFR (CKD-EPI)AfAm 23 (>60 ml/min/1.73 sqM) Est GFR (CKD-EPI)NonAf 20 (>60 ml/min/1.73 sqM) Glucose 410 H (74-99) mg/dL Plasma Lactic Acid Walt (0.7-2.0) mmol/L Calcium 8.9 (8.4-10.2) mg/dL Magnesium 1.4 L (1.6-2.3) mg/dL Total Bilirubin 3.0 H (0.2-1.3) mg/dL AST 36 (14-36) U/L ALT 15 (4-34) U/L Alkaline Phosphatase 117 (38-126) U/L Troponin I (0.000-0.034) ng/mL Total Protein 6.6 (6.3-8.2) g/dL Albumin 3.6 (3.5-5.0) g/dL Urine Color Urine Appearance (Clear) Urine pH (5.0-8.0) Ur Specific [place] (1.001-1.035) Urine Protein (Negative) Urine Glucose (UA) (Negative) Urine Ketones (Negative) Urine Blood (Negative) Urine Nitrite (Negative) Urine Bilirubin (Negative) Urine Urobilinogen (<2.0) mg/dL Ur Leukocyte Esterase (Negative) Urine RBC (0-5) /hpf Urine WBC (0-5) /hpf Urine WBC Clumps (None) /hpf Ur Squamous Epith Cells (0-4) /hpf Amorphous Sediment (None) /hpf Urine Bacteria (None) /hpf Hyaline Casts (0-2) /lpf Coronavirus (PCR) (Not Detectd) 10/18/20 10/18/20 10/18/20 Range/Units 06:52 06:52 06:52 WBC (3.8-10.6) k/uL RBC (3.80-5.40) m/uL Hgb (11.4-16.0) gm/dL Hct (34.0-46.0) % MCV (80.0-100.0) fL MCH (25.0-35.0) pg MCHC (31.0-37.0) g/dL RDW (11.5-15.5) % Plt Count (150-450) k/uL MPV Neutrophils % % Lymphocytes % % Monocytes % % Eosinophils % % Basophils % % Neutrophils # (1.3-7.7) k/uL Lymphocytes # (1.0-4.8) k/uL Monocytes # (0-1.0) k/uL Eosinophils # (0-0.7) k/uL Basophils # (0-0.2) k/uL Hypochromasia PT (9.0-12.0) sec INR (<1.2) APTT (22.0-30.0) sec Sodium (137-145) mmol/L Potassium (3.5-5.1) mmol/L Chloride (98-107) mmol/L Carbon Dioxide (22-30) mmol/L Anion Gap mmol/L BUN (7-17) mg/dL Creatinine (0.52-1.04) mg/dL Est GFR (CKD-EPI)AfAm (>60 ml/min/1.73 sqM) Est GFR (CKD-EPI)NonAf (>60 ml/min/1.73 sqM) Glucose (74-99) mg/dL Plasma Lactic Acid Walt 3.8 H* (0.7-2.0) mmol/L Calcium (8.4-10.2) mg/dL Magnesium (1.6-2.3) mg/dL Total Bilirubin (0.2-1.3) mg/dL AST (14-36) U/L ALT (4-34) U/L Alkaline Phosphatase (38-126) U/L Troponin I 0.960 H* (0.000-0.034) ng/mL Total Protein (6.3-8.2) g/dL Albumin (3.5-5.0) g/dL Urine Color Urine Appearance (Clear) Urine pH (5.0-8.0) Ur Specific [place] (1.001-1.035) Urine Protein (Negative) Urine Glucose (UA) (Negative) Urine Ketones (Negative) Urine Blood (Negative) Urine Nitrite (Negative) Urine Bilirubin (Negative) Urine Urobilinogen (<2.0) mg/dL Ur Leukocyte Esterase (Negative) Urine RBC (0-5) /hpf Urine WBC (0-5) /hpf Urine WBC Clumps (None) /hpf Ur Squamous Epith Cells (0-4) /hpf Amorphous Sediment (None) /hpf Urine Bacteria (None) /hpf Hyaline Casts (0-2) /lpf Coronavirus (PCR) Not Detected (Not Detectd) 10/18/20 Range/Units 08:23 WBC (3.8-10.6) k/uL RBC (3.80-5.40) m/uL Hgb (11.4-16.0) gm/dL Hct (34.0-46.0) % MCV (80.0-100.0) fL MCH (25.0-35.0) pg MCHC (31.0-37.0) g/dL RDW (11.5-15.5) % Plt Count (150-450) k/uL MPV Neutrophils % % Lymphocytes % % Monocytes % % Eosinophils % % Basophils % % Neutrophils # (1.3-7.7) k/uL Lymphocytes # (1.0-4.8) k/uL Monocytes # (0-1.0) k/uL Eosinophils # (0-0.7) k/uL Basophils # (0-0.2) k/uL Hypochromasia PT (9.0-12.0) sec INR (<1.2) APTT (22.0-30.0) sec Sodium (137-145) mmol/L Potassium (3.5-5.1) mmol/L Chloride (98-107) mmol/L Carbon Dioxide (22-30) mmol/L Anion Gap mmol/L BUN (7-17) mg/dL Creatinine (0.52-1.04) mg/dL Est GFR (CKD-EPI)AfAm (>60 ml/min/1.73 sqM) Est GFR (CKD-EPI)NonAf (>60 ml/min/1.73 sqM) Glucose (74-99) mg/dL Plasma Lactic Acid Walt (0.7-2.0) mmol/L Calcium (8.4-10.2) mg/dL Magnesium (1.6-2.3) mg/dL Total Bilirubin (0.2-1.3) mg/dL AST (14-36) U/L ALT (4-34) U/L Alkaline Phosphatase (38-126) U/L Troponin I (0.000-0.034) ng/mL Total Protein (6.3-8.2) g/dL Albumin (3.5-5.0) g/dL Urine Color Lamb Urine Appearance Cloudy H (Clear) Urine pH 5.0 (5.0-8.0) Ur Specific [place] >1.030 (1.001-1.035) Urine Protein 2+ (Negative) Urine Glucose (UA) Trace (Negative) Urine Ketones Negative (Negative) Urine Blood Small (Negative) Urine Nitrite Negative (Negative) Urine Bilirubin 1+ (Negative) Urine Urobilinogen 2.0 (<2.0) mg/dL Ur Leukocyte Esterase Small (Negative) Urine RBC 16 H (0-5) /hpf Urine WBC 8 H (0-5) /hpf Urine WBC Clumps Rare H (None) /hpf Ur Squamous Epith Cells 3 (0-4) /hpf Amorphous Sediment Few H (None) /hpf Urine Bacteria Occasional H (None) /hpf Hyaline Casts 24 H (0-2) /lpf Coronavirus (PCR) (Not Detectd) Disposition Clinical Impression: Acute kidney injury, Hyperglycemia, UTI (urinary tract infection), Elevated troponin, History of lung cancer Disposition: ADMITTED IP TO THIS HOSP Condition: Fair Referrals: Everton Benjamin MD [Primary Care Provider] - 1-2 days
[2020-10-18 07:18] LABS: Basophils % (A) 0 %; Eosinophils % (A) 0 %; HCT 39.7 % (34.0-46.0); HGB 12.9 gm/dL (11.4-16.0); Hypochromasia Slight; Lymphocytes # (A) 0.2 k/uL (1.0-4.8); Lymphocytes % (A) 1 %; MCH 31.9 pg (25.0-35.0); MCHC 32.4 g/dL (31.0-37.0); MCV 98.4 fL (80.0-100.0); Mean Platelet Volume 9.5; Monocytes # (A) 0.4 k/uL (0-1.0); Monocytes % (A) 3 %; Neutrophils # (A) 11.1 k/uL (1.3-7.7); Neutrophils % (A) 95 %; Platelet Count 107 k/uL (150-450); RBC 4.04 m/uL (3.80-5.40); RDW 14.4 % (11.5-15.5); WBC 11.7 k/uL (3.8-10.6)
--- NOTE | 2020-10-18 07:24 | XR ---
EXAMINATION TYPE: XR chest 2V DATE OF EXAM: 10/18/2020 COMPARISON: 03/25/2018 HISTORY: 75-year-old female with fever TECHNIQUE: AP and lateral views FINDINGS: Low lung volumes. Median sternotomy wires. Cardiovascular markings. Heart appears enlarged. Left supr ahilar soft tissue prominence. Small left effusion on the lateral view with left basilar opacity. IMPRESSION: 1. Limited due to the hypoventilatory changes. There is at least a small left pleural effusion and ei ther left basilar atelectasis or infiltrate. 2. Cardiomegaly with a background of possible pulmonary vascular congestion. 3. Known left suprahilar neoplasm/site of treated disease.
[2020-10-18 07:35] LABS: Albumin 3.6 g/dL (3.5-5.0); Calcium 8.9 mg/dL (8.4-10.2); Magnesium 1.4 mg/dL (1.6-2.3); Potassium 5.3 mmol/L (3.5-5.1); Total Protein 6.6 g/dL (6.3-8.2)
[2020-10-18 08:08] LABS: INR 2.6 (<1.2); Partial Thromboplastin Time 26.2 sec (22.0-30.0); Prothrombin Time 25.1 sec (9.0-12.0)
[2020-10-18 08:44] LABS: Appearance,Urine Cloudy (Clear); Color,Urine Orange; Glucose,Urine (UA) Trace (Negative); Ketones,Urine Negative (Negative); Protein,Urine 2+ (Negative); Specific Gravity,Urine >1.030 (1.001-1.035)
[2020-10-18] MEDS: SODIUM CHLORIDE 0.9% 1,000 ML IV SCH ×2 (08:44→13:18)
[2020-10-18 08:45] LABS: Bilirubin,Urine 1+ (Negative); Blood,Urine Small (Negative); Leukocyte Esterase,Urine Small (Negative); Nitrite,Urine Negative (Negative)
[2020-10-18 08:49] LABS: Amorphous Sediment,Urine Few /hpf; Bacteria,Urine Occasional /hpf; Hyaline Casts,Urine 24 /lpf (0-2); RBC,Urine 16 /hpf (0-5); Squamous Epithelial Cell,Urine 3 /hpf (0-4); WBC,Urine 8 /hpf (0-5)
[2020-10-18] MEDS ORDERED: NITROGLYCERIN SL TABS 0.4 MG TAB SUBLINGUAL PRN (09:13)
[2020-10-18] MEDS ORDERED: MAGNESIUM OXIDE 400 MG TAB PO STA (09:23)
[2020-10-18 10:14] LABS: Glucose,Whole Blood 436 mg/dL (75-99)
[2020-10-18] MEDS ORDERED: NALOXONE 0.4 MG/ML 1 ML VIAL IV PRN (11:42)
[2020-10-18] MEDS ORDERED: ONDANSETRON 4 MG/2 ML VIAL IVP PRN (11:42)
--- NOTE | 2020-10-18 11:47 | P.HPIM ---
History of Present Illness H&P Date: 10/18/20 Chief Complaint: fevers Patient is a 75-year-old female with left-sided lung cancer diagnosed in 2018 recent negative/CT, diabetes mellitus type 2 insulin requiring, coronary artery disease status post PCI and ultimately coronary artery bypass grafting, dyslipidemia, hypertension, and thyroid disorder who presented to the ER secondary to fevers. On arrival to the ER she was slightly tachycardic with pulse of 117. Initial laboratory evaluation showed white blood cell count 11.7, sodium 131, potassium 5.3, carbon dioxide 14, anion gap 17, BUN 55, creatinine 2.3, glucose 410, lactic acid 3.8, magnesium 1.4, and troponin 0.960. Urinalysis was not consistent with urinary tract infection. COVID-19 Testing was negative. Chest x-ray consistent with known left suprahilar neoplasm and small left pleural effusion. In the ER she was given a dose of Tylenol, Rocephin, magnesium and IV fluids. She was admitted for further monitoring. Patient seen and examined at bedside. + T max 99.5, Has not been felling well for the last 2 days, Bodyaches and chills with rigors, had dry heaves overnight, + fatigue, eating and drinking is a little lower normal. No cough, no chest pain, + SOB that happens when her sugar is high, no nausea or vomiting, no diarrhea, no difficulty with urination. No known COVID contacts. No sick contacts. Oncologist: Dr. Shaw- no current treatments last pet in August 2020 without active disease. PCP: [facility] Cardiology: BR Villarreal Pertinent positives and negatives as discussed in HPI, a complete review of systems was performed and all other systems are negative. General: ill appearing, no distress, appears at stated age Derm: warm, dry Head: atraumatic, normocephalic, symmetric Eyes: EOMI, no lid lag, anicteric sclera, pupils equal round reactive to light ENT: Nose and ears atraumatic, no thrush, no pharyngeal erythema Neck: No thyromegaly, no cervical lymphadenopathy, trachea midline, supple Mouth: no lip lesion, mucus membranes moist Cardiovascular: S1S2 reg, no murmur, positive posterior tibial pulse bilateral, no edema, capillary refill less than 2 seconds Lungs: clear to ascultation bilateral, no ronchi, no rales, no wheeze, no accessory muscle use Abdominal: soft, nontender to palpation, no guarding, no appreciable organomegaly, normal bowel sounds Ext: no gross muscle atrophy, muscle strength muscle strength 5 out of 5 in all 4 extremities, no contractures Neuro: CN II-XI grossly intact, light touch intact all 4 extremities, finger to nose within normal limits, Psych: Alert, oriented, appropriate affect Body aches, subject fevers - Covid, chest x-ray, and urinalysis are unrevealing -Check flu, RSV -Check pro calcitonin -IV fluids, Tylenol CARSON, hyperkalemia, hyponatremia -IV fluids -If no improvement in a.m. consult nephro -Hold Aldactone, Lasix, and Cozaar -Avoid additional nephrotoxic agents Hyperglycemia with a anion gap metabolic acidosis -May be secondary to lactic acid however will need to rule out DKA as patient sugars are typically 120 -Check serum acetone - Continue with sliding scale insulin -Hold long-acting insulin -IV fluids NSTEMI, TYPE 2- history of coronary artery disease status post CABG -Continue to follow troponins, maybe secondary to CARSON -Aspirin - Lipitor - BB - cardio consult - echo in AM -No heparin drip at this time as patient is therapeutic on Coumadin Paroxysmal atrial fibrillation with therapeutic Coumadin coagulopathy -Continue current medications -Follow telemetry -Pharmacy to dose Coumadin Systolic congestive heart failure without exacerbation -Ejection fraction 30-35% -Hold diuretics and Cozaar, continue with beta lucila -Monitor closely with need for IV fluid resuscitation -Telemetry -Daily weights -Cardiology recommendations Thrombocytopenia chronic near baseline - follow CBC Lactic acidosis - IV fluids - repeat lactic acid pending Lung cancer in remission The patient is admitted with an anticipated greater than 2 midnight stay for evaluation of fevers. Surrogate decision-maker: daughter CODE STATUS: full, no prolonged ventilation DVT prophylaxis: coumadin Discussed with: Patient, daughter, nursing Anticipated discharge date: in 2-[address]: home A total of 65 minutes was spent on the care of this complex patient more than 50% of the time was spent in counseling and care coordination. 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 Last Myocardial Infarction Date:: 2005 History of Any Multi-Drug Resistant Organisms: None Reported Past Surgical History: Adenoidectomy, Coronary Bypass/CABG, Heart Catheterization, Heart Catheterization With Stent, Tonsillectomy Additional Past Surgical History / Comment(s): L caratid endartectomy, PCI with multiple stents, 2005 CABG 3 vessels, colonoscopy, hemangioma removed from around mouth when a child Past Anesthesia/Blood Transfusion Reactions: No Reported Reaction, Motion Sickness Additional Past Anesthesia/Blood Transfusion Reaction / Comment(s): Daughter believes pt received blood with CABG surgery. Date of Last Stent Placement:: 2005 Past Psychological History: No Psychological Hx Reported Smoking Status: Former smoker Past Alcohol Use History: None Reported Past Drug Use History: None Reported Additional History: no cane or walker at home, independent in ADLs - Past Family History Father Family Medical History: Cancer Additional Family Medical History / Comment(s): Father had prostrate cancer. Mother Family Medical History: Respiratory Disorder Additional Family Medical History / Comment(s): Mother had lung disease. Medications and Allergies Home Medications Medication Instructions Recorded Confirmed Type Atorvastatin [Lipitor] 40 mg PO DAILY 03/09/19 10/18/20 History Levothyroxine Sodium [Synthroid] 175 mcg PO DAILY 03/09/19 10/18/20 History Furosemide [Lasix] 20 mg PO DAILY PRN 06/17/19 10/18/20 History Insulin NPH Human Isophane 14 units SQ DAILY 06/17/19 10/18/20 History [NovoLIN N] Insulin NPH Human Isophane 16 units SQ HS 06/17/19 10/18/20 History [NovoLIN N] Insulin Regular, Human [NovoLIN R] See Protocol SQ AC-TID 06/17/19 10/18/20 History RX: Spironolactone 12.5 mg PO DAILY 06/17/19 10/18/20 History Warfarin [Coumadin] 2.5 mg PO SUMOTUWETHSA@2100 06/17/19 10/18/20 History Clopidogrel [Plavix] 75 mg PO DAILY 10/18/20 10/18/20 History Ergocalciferol [Vitamin D2 (1250 1,250 mcg PO ESQUEDA 10/18/20 10/18/20 History Mcg = 37235 Iu)] Isosorbide Mononitrate ER [Imdur] 30 mg PO DAILY 10/18/20 10/18/20 History Metoprolol Succinate (ER) [Toprol 100 mg PO DAILY 10/18/20 10/18/20 History Xl] Nitroglycerin Sl Tabs [Nitrostat] 0.4 mg SL Q5M PRN 10/18/20 10/18/20 History RX: Losartan Potassium 100 mg PO DAILY 10/18/20 10/18/20 History Allergies Allergy/AdvReac Type Severity Reaction Status Date / Time Penicillins Allergy Rash/Hives Verified 10/18/20 09:49 Physical Exam Osteopathic Statement: *. No significant issues noted on an osteopathic structural exam other than those noted in the History and Physical/Consult. Vitals: Vital Signs Temp Pulse Resp BP Pulse Ox 10/18/20 08:54 98.0 F 103 H 20 109/76 99 10/18/20 06:40 18 10/18/20 06:35 99.2 F 117 H 16 108/70 94 L Intake and Output 10/17/20 10/18/20 10/18/20 22:59 06:59 14:59 Other: Weight 86.183 kg Results CBC & Chem 7: 10/18/20 06:52 10/18/20 13:26 Labs: Abnormal Lab Results - Last 24 Hours (Table) 10/18/20 10/18/20 10/18/20 Range/Units 06:52 06:52 06:52 WBC 11.7 H (3.8-10.6) k/uL Plt Count 107 L (150-450) k/uL Neutrophils # 11.1 H (1.3-7.7) k/uL Lymphocytes # 0.2 L (1.0-4.8) k/uL PT 25.1 H (9.0-12.0) sec INR 2.6 H (<1.2) Sodium 131 L (137-145) mmol/L Potassium 5.3 H (3.5-5.1) mmol/L Carbon Dioxide 14 L (22-30) mmol/L BUN 55 H (7-17) mg/dL Creatinine 2.30 H (0.52-1.04) mg/dL Glucose 410 H (74-99) mg/dL POC Glucose (mg/dL) (75-99) mg/dL Plasma Lactic Acid Walt (0.7-2.0) mmol/L Magnesium 1.4 L (1.6-2.3) mg/dL Total Bilirubin 3.0 H (0.2-1.3) mg/dL Troponin I (0.000-0.034) ng/mL Urine Appearance (Clear) Urine RBC (0-5) /hpf Urine WBC (0-5) /hpf Urine WBC Clumps (None) /hpf Amorphous Sediment (None) /hpf Urine Bacteria (None) /hpf Hyaline Casts (0-2) /lpf 10/18/20 10/18/20 10/18/20 Range/Units 06:52 06:52 08:23 WBC (3.8-10.6) k/uL Plt Count (150-450) k/uL Neutrophils # (1.3-7.7) k/uL Lymphocytes # (1.0-4.8) k/uL PT (9.0-12.0) sec INR (<1.2) Sodium (137-145) mmol/L Potassium (3.5-5.1) mmol/L Carbon Dioxide (22-30) mmol/L BUN (7-17) mg/dL Creatinine (0.52-1.04) mg/dL Glucose (74-99) mg/dL POC Glucose (mg/dL) (75-99) mg/dL Plasma Lactic Acid Walt 3.8 H* (0.7-2.0) mmol/L Magnesium (1.6-2.3) mg/dL Total Bilirubin (0.2-1.3) mg/dL Troponin I 0.960 H* (0.000-0.034) ng/mL Urine Appearance Cloudy H (Clear) Urine RBC 16 H (0-5) /hpf Urine WBC 8 H (0-5) /hpf Urine WBC Clumps Rare H (None) /hpf Amorphous Sediment Few H (None) /hpf Urine Bacteria Occasional H (None) /hpf Hyaline Casts 24 H (0-2) /lpf 10/18/20 Range/Units 10:11 WBC (3.8-10.6) k/uL Plt Count (150-450) k/uL Neutrophils # (1.3-7.7) k/uL Lymphocytes # (1.0-4.8) k/uL PT (9.0-12.0) sec INR (<1.2) Sodium (137-145) mmol/L Potassium (3.5-5.1) mmol/L Carbon Dioxide (22-30) mmol/L BUN (7-17) mg/dL Creatinine (0.52-1.04) mg/dL Glucose (74-99) mg/dL POC Glucose (mg/dL) 436 H (75-99) mg/dL Plasma Lactic Acid Walt (0.7-2.0) mmol/L Magnesium (1.6-2.3) mg/dL Total Bilirubin (0.2-1.3) mg/dL Troponin I (0.000-0.034) ng/mL Urine Appearance (Clear) Urine RBC (0-5) /hpf Urine WBC (0-5) /hpf Urine WBC Clumps (None) /hpf Amorphous Sediment (None) /hpf Urine Bacteria (None) /hpf Hyaline Casts (0-2) /lpf
[2020-10-18 11:52] LABS: Glucose,Whole Blood 466 mg/dL (75-99)
[2020-10-18] MEDS ORDERED: ERGOCALCIFEROL 1,250 MCG (50,000 IU) CAPSULE PO SCH (12:00)
[2020-10-18] MEDS ORDERED: INSULIN ASPART (NovoLOG) 100 UNIT/ML VIAL SQ SCH (12:30)
[2020-10-18 12:49] LABS: Glucose,Whole Blood 406 mg/dL (75-99)
[2020-10-18] MEDS ORDERED: INSULIN ASPART (NovoLOG) 100 UNIT/ML VIAL SQ ONE (12:59)
[2020-10-18 14:19] LABS: Calcium 8.8 mg/dL (8.4-10.2); Potassium 4.3 mmol/L (3.5-5.1)
[2020-10-18] MEDS ORDERED: SODIUM CHLORIDE 0.9% 500 ML 500 ML IV ONE (14:28)
[2020-10-18] MEDS ORDERED: Potassium Replacement Protocol 1 EACH MISC MISCELLANE PRN (14:30)
[2020-10-18] MEDS ORDERED: Magnesium Replacement Protocol 1 EACH MISC MISCELLANE PRN (14:30)
[2020-10-18] MEDS: INSULIN REGULAR 100 UNIT in SODIUM CHLORIDE 0.9% 100 ML IV SCH (15:05)
[2020-10-18] MEDS ORDERED: ASPIRIN 325 MG TAB PO STA (15:07)
[2020-10-18 15:13] LABS: VBG PH 7.25 (7.31-7.41)
[2020-10-18 15:19] LABS: Glucose,Whole Blood 306 mg/dL (75-99)
[2020-10-18] MEDS: ACETAMINOPHEN TAB 325 MG TAB PO PRN ×2 (15:28→18:50)
[2020-10-18 16:08] LABS: Glucose,Whole Blood 322 mg/dL (75-99)
[2020-10-18] MEDS: SODIUM CHLORIDE 0.9% 1,000 ML IV ONE (16:38)
[2020-10-18 16:40] LABS: Glucose,Whole Blood 280 mg/dL (75-99)
[2020-10-18] MEDS: METOPROLOL SUCCINATE (ER) 100 MG TAB.ER.24H PO SCH (16:40)
[2020-10-18 17:10] LABS: Glucose,Whole Blood 274 mg/dL (75-99)
--- NOTE | 2020-10-18 17:15 | P.EN ---
A- team: Indication: hypotension Patient seen and examined at bedside. She reports not feeling well and being short of breath. No chest pain, + dizziness, no nasuea. Vital signs reviewed General: ill appearing, moderate distress, appears at stated age Derm: warm, dry Head: atraumatic, normocephalic, symmetric Eyes: EOMI, no lid lag, anicteric sclera Mouth: no lip lesion, mucus membranes moist Cardiovascular: S1S2 reg, no murmur, positive posterior tibial pulse bilateral, Lungs: Crackles bilateral bases, + Accessory muscle use, 3 word conversational dyspnea Abdominal: soft, nontender to palpation, no guarding, no appreciable organomegaly Psych: Alert, oriented, appropriate affect Assessment/Plan: Hypotension NSTEMI DKA CARSON Coaguopathy Acute systolic CHF with EF 30-35% - 1L IV fluid bolus - check ABG - CXR ordered and reviewed by me demonstrates fluid overload - Bipap and 12/6 - may need bicarb - transfer to ICU - cycle troponins - NPO - continue with insulin gtt - follow BS closely Notified: Dr. Gee- NPO, hold coumadin once INR is less than 2 start heparin gtt. Sujata- José Miguel with transfer to the ICU A Total of 40 minutes of critical care time was spent on the complex care of this patient.
--- NOTE | 2020-10-18 17:32 | XR ---
EXAMINATION TYPE: XR chest 1V portable DATE OF EXAM: 10/18/2020 COMPARISON: NONE HISTORY: 10/18/2020 TECHNIQUE: Single view FINDINGS: There is elevated left diaphragm and blunting left costophrenic angle. Right lung is clear. There are sternal wires. There are chest leads. IMPRESSION: Pleural diaphragmatic reaction and scarring at the left lung base without change. No hear t failure seen.
[2020-10-18 17:58] LABS: INR 3.3 (<1.2); Prothrombin Time 31.5 sec (9.0-12.0)
[2020-10-18] MEDS: D5-0.45% NACL WITH KCL 20MEQ/L 1,000 ML IV SCH (18:16)
[2020-10-18 18:20] LABS: Calcium 8.4 mg/dL (8.4-10.2); Potassium 3.9 mmol/L (3.5-5.1)
[2020-10-18 18:21] LABS: Glucose,Whole Blood 207 mg/dL (75-99)
[2020-10-18 18:49] LABS: ABG Base Excess -7.8 mmol/L; ABG HCO3 17 mmol/L (21-25); ABG Oxygen Saturation 99.4 % (94-97); ABG PCO2 28 mmHg (35-45); ABG PH 7.39 (7.35-7.45); ABG PO2 221 mmHg (83-108); ABG TCO2 18 mmol/L (19-24); Allen Test Performed? Yes
[2020-10-18 19:08] LABS: Glucose,Whole Blood 158 mg/dL (75-99)
[2020-10-18] MEDS ORDERED: VANCOMYCIN IV PER PHARMACY 1 EACH MISC MISCELLANE PRN (20:08)
[2020-10-18] MEDS ORDERED: VANCOMYCIN 1,500 MG in SODIUM CHLORIDE 0.9% 250 ML IVPB ONE (20:30)
[2020-10-18 20:41] LABS: Phosphorus 2.7 mg/dL (2.5-4.5); Potassium 4.1 mmol/L (3.5-5.1)
[2020-10-18 20:44] LABS: Glucose,Whole Blood 238 mg/dL (75-99)
--- NOTE | 2020-10-18 20:53 | CT ---
EXAMINATION TYPE: CT abdomen pelvis wo con DATE OF EXAM: 10/18/2020 COMPARISON: 07/23/2019 HISTORY: Generalized pain with diarrhea. CT DLP: 1135.2 mGycm Automated exposure control for dose reduction was used. Images obtained without contrast from the diaphragm to the floor the pelvis. There are bilateral pleural effusions and larger on the left side. Heart is enlarged. Gallbladder appears intact. There is possible small calcified gallstones. The bile ducts are not dila alberto. Liver shows no focal defect. There is extensive vascular calcification. Spleen is intact. There is no pancreatic mass. The stomach is intact. There is no adrenal mass. Kidneys have normal size. There is no hydronephrosis. Bladder distends smoo thly. There is [place] catheter in the urinary bladder. There is small calcified anterior wall uterine fibroid. Uterus is anteverted. There is no free fluid in the pelvis. There is no mesenteric edema. There is no ascites or free air. There is no bowel obstruction. There are multiple sigmoid diverticula. The lumbar vertebra have normal alignment. There is mild narrowing of the disc spaces. There is no nate mbar compression fracture. The bony pelvis appears intact. IMPRESSION: Bilateral pleural effusions not significantly different than old exam. Cardiomegaly. No acute abnormality within the abdomen pelvis.
[2020-10-18] MEDS ORDERED: metroNIDAZOLE-NS PMX 500 MG in SALINE 1 100ML.BAG IVPB SCH (21:00)
[2020-10-18] MEDS ORDERED: WARFARIN 2.5 MG TAB PO SCH (21:00)
[2020-10-18 22:05] LABS: Glucose,Whole Blood 187 mg/dL (75-99)
[2020-10-18] MEDS ORDERED: FUROSEMIDE 10 MG/ML 4 ML VIAL IV STA (22:28)
[2020-10-18 23:45] LABS: Glucose,Whole Blood 128 mg/dL (75-99)
[2020-10-19 00:32] LABS: Basophils % (A) 0 %; Eosinophils % (A) 0 %; HGB 12.1 gm/dL (11.4-16.0); Lymphocytes # (A) 0.3 k/uL (1.0-4.8); Lymphocytes % (A) 4 %; MCHC 31.8 g/dL (31.0-37.0); MCV 97.7 fL (80.0-100.0); Mean Platelet Volume 10.2; Monocytes # (A) 0.2 k/uL (0-1.0); Monocytes % (A) 3 %; Neutrophils # (A) 7.4 k/uL (1.3-7.7); Neutrophils % (A) 92 %; RBC 3.89 m/uL (3.80-5.40); RDW 14.9 % (11.5-15.5)
[2020-10-19 01:01] LABS: Albumin 2.7 g/dL (3.5-5.0); Calcium 8.3 mg/dL (8.4-10.2); Phosphorus 3.5 mg/dL (2.5-4.5); Total Bilirubin 1.5 mg/dL (0.2-1.3); Total Protein 5.6 g/dL (6.3-8.2)
[2020-10-19 01:29] LABS: Anisocytosis (M) Present; Ovalocytes Present; Platelet Count 95 k/uL (150-450); Poikilocytosis (M) Present; Polychromasia Present
[2020-10-19 01:53] LABS: Glucose,Whole Blood 81 mg/dL (75-99)
[2020-10-19] MEDS: SODIUM CHLORIDE 0.9% 1,000 ML IV SCH (01:53)
[2020-10-19] MEDS: NOREPINEPHRINE 4 MG in SODIUM CHLORIDE 0.9% 250 ML IV SCH ×2 (01:55→05:59)
[2020-10-19 02:14] LABS: Glucose,Whole Blood 93 mg/dL (75-99)
[2020-10-19 03:11] LABS: Glucose,Whole Blood 87 mg/dL (75-99)
[2020-10-19 03:59] LABS: Glucose,Whole Blood 135 mg/dL (75-99)
[2020-10-19 04:01] LABS: HCT 41.9 % (34.0-46.0); HGB 13.5 gm/dL (11.4-16.0); Hypochromasia Slight; MCH 31.7 pg (25.0-35.0); MCHC 32.3 g/dL (31.0-37.0); MCV 98.1 fL (80.0-100.0); Mean Platelet Volume 10.1; Platelet Count 126 k/uL (150-450); RBC 4.27 m/uL (3.80-5.40); RDW 14.5 % (11.5-15.5); WBC 14.8 k/uL (3.8-10.6)
[2020-10-19 04:27] LABS: Calcium 8.4 mg/dL (8.4-10.2); Magnesium 1.6 mg/dL (1.6-2.3); Total Bilirubin 2.1 mg/dL (0.2-1.3); Total Protein 6.2 g/dL (6.3-8.2)
[2020-10-19] MEDS: D5-0.45% NACL WITH KCL 20MEQ/L 1,000 ML IV SCH ×2 (04:32→09:19)
[2020-10-19 04:42] LABS: INR 4.9 (<1.2); Prothrombin Time 47.7 sec (9.0-12.0)
[2020-10-19 04:54] LABS: Potassium 5.3 mmol/L (3.5-5.1)
[2020-10-19] MEDS: ACETAMINOPHEN TAB 325 MG TAB PO PRN (04:54)
[2020-10-19 05:11] LABS: Glucose,Whole Blood 137 mg/dL (75-99)
[2020-10-19] MEDS: MAGNESIUM SULFATE-D5W PMX 1 GM in DEXTROSE/WATER 1 100ML.BAG IVPB SCH ×2 (05:26→06:38)
[2020-10-19] MEDS: LEVOTHYROXINE 88 MCG TAB PO SCH (06:39)
[2020-10-19 07:02] LABS: Glucose,Whole Blood 145 mg/dL (75-99)
[2020-10-19] MEDS ORDERED: ALBUTEROL NEBULIZED 2.5 MG/3 ML INHALATION ONE (07:13)
--- NOTE | 2020-10-19 07:38 | XR ---
EXAMINATION TYPE: XR chest 1V portable DATE OF EXAM: 10/19/2020 COMPARISON: 10/18/2020 HISTORY: Assess lungs TECHNIQUE: Single frontal view of the chest is obtained. FINDINGS: There is unchanged elevation of the left hemidiaphragm with blunting of the left costophre alan angle. There is unchanged bilateral perihilar prominence. Cardiac silhouette is partially obscured by elevat ion of the left hemidiaphragm but is otherwise unchanged. Sternotomy changes are noted. There are postoperative changes in the bilateral upper paramediastinal region IMPRESSION: No significant change since the prior exam.
[2020-10-19] MEDS ORDERED: PHYTONADIONE ORAL 5 MG/5 ML ORAL.SYRG PO STA (07:51)
--- NOTE | 2020-10-19 07:52 | P.CNPUL ---
History of Present Illness Consult date: 10/19/20 Reason for consult: dyspnea, hypoxemia History of present illness: 75-year-old female patient known history of non-small cell lung cancer locally advanced stage III be treated with a combination of chemoradiation therapy with favorable response. The patient was considered for surgical resection and was able to be nonsurgical due to borderline lung function and location of the tumor. The patient had an FEV1 of 60% of predicted. The patient was started with the immunotherapy for a while. She also has history of CHF with an ejection fraction of 3035% with global hypokinesis, CAD with previous bypass surgery in 2005 and previous non-STEMI and diabetes mellitus. The patient came into the emergency department yesterday because of altered mental status and body aches and pains at home. The patient was initially tachycardic with a hea rt rate of 117. The blood work showed a white cell count of 11.7, sodium was 131 with a potassium level of 5.3 and a serum bicarb of 14 with anion gap of 17. BUN was 55 with a creatinine of 2.3. Glucose was 47. Lactic acid level was 3.8 and a magnesium of 1.8 and troponin of 0.9 initially and it maxed out at 1.2 suggestive an acute non-STEMI.. UA was negative. COVID-19 testing was negative. The lactic acid level was as high as 7.5. Chest x-ray was consistent with a left suprahilar mass and a small left-sided pleural effusion. The patient was running a temperature of 99.5. She was complaining of shortness of breath. Her chest x-ray also showed a moderate-sized left-sided pleural ef fusion along with some volume loss in the left suprahilar mass. The patient has not received any treatment regarding her malignancy for the past few years. Most recent PET/CT from 08/21/2020 showed no areas of new metabolic activity to suggest recurrent tumor. There was small to moderate-sized left-sided pleural effusion that had shown some increased interval size compared to earlier PET/CT. This morning, the patient is calm and comfortable. No signs of any major respiratory distress. She remained in 100% nonrebreather facemask and her pulse ox is in the order of 95-99%. She didn't use the BiPAP overnight depression of 12/6 with an FiO2 of 50%. She was given a total of 4 L of IV fluids overnight. Urine output in order of 10 mL an hour. CAT scan of the abdomen and pelvis was completed and showed lateral pleural effusions along with cardiomegaly. No acute intra-abdominal pathology. Her morning INR is at 4.9. She is on insulin drip running at 1.12 units hour. After being given 4 L of IV fluid, the patient continued to be running some low blood pressure. She is also on norepinephrine infusion this morning at a dose of 0.16 mcg/kg per minute. Most recent blood pressure is 120/51. She has an arterial radial line on the right. No tachycardia. She is currently in normal sinus rhythm. Review of Systems Constitutional: Reports fever, Reports lethargy, Reports weakness Eyes: denies as per HPI, denies blurred vision, denies bulging eye, denies decreased vision, denies diplopia, denies discharge, denies dry eye, denies irritation, denies itching, denies pain, denies photophobia, denies loss of peripheral vision, denies loss of vision, denies tunnel vision/blind spots Ears: deny: decreased hearing, ear discharge, earache, tinnitus Ears, nose, mouth and throat: Reports as per HPI Breasts: absent: as per HPI, change in shape, gynecomastia, masses, nipple discharge, pain, skin changes, swelling Cardiovascular: Reports decreased exercise tolerance, Reports dyspnea on exertion Respiratory: Reports dyspnea Genitourinary: Reports as per HPI Menstruation: Reports as per HPI Musculoskeletal: Reports as per HPI Musculoskeletal: absent: ankle pain, ankle stiffness, ankle swelling Neurological: Reports as per HPI, Reports weakness Psychiatric: Reports as per HPI Endocrine: Reports as per HPI, Reports fatigue, Reports high blood sugars Hematologic/Lymphatic: Reports as per HPI Allergic/Immunologic: Reports as per HPI Past Medical History Past Medical History: Atrial Fibrillation, Coronary Artery Disease (CAD), Cancer, Diabetes Mellitus, Hyperlipidemia, Hypertension, Myocardial Infarction (non Q-wave), Osteoarthritis (OA), Thyroid Disorder Additional Past Medical History / Comment(s): Non small cell L upper lobe lung cancer-completed chemo/radiation and received immunotherapy ., arthritis multiple joints/back, chronic low back pain, asthma as a child, hypothyroid. Last Myocardial Infarction Date:: 2005 History of Any Multi-Drug Resistant Organisms: None Reported Past Surgical History: Adenoidectomy, Coronary Bypass/CABG, Heart Catheterization, Heart Catheterization With Stent, Tonsillectomy Additional Past Surgical History / Comment(s): L caratid endartectomy, PCI with multiple stents, 2005 CABG 3 vessels, colonoscopy, hemangioma removed from around mouth when a child Past Anesthesia/Blood Transfusion Reactions: No Reported Reaction, Motion S ickness Additional Past Anesthesia/Blood Transfusion Reaction / Comment(s): Daughter believes pt received blood with CABG surgery. Date of Last Stent Placement:: 2005 Past Psychological History: No Psychological Hx Reported Smoking Status: Former smoker Past Alcohol Use History: None Reported Past Drug Use History: None Reported - Past Family History Father Family Medical History: Cancer Additional Family Medical History / Comment(s): Father had prostrate cancer. Mother Family Medical History: Respiratory Disorder Additional Family Medical History / Comment(s): Mother had lung disease. Medications and Allergies Home Medications Medication Instructions Recorded Confirmed Type Atorvastatin [Lipitor] 40 mg PO DAILY 03/09/19 10/18/20 History Levothyroxine Sodium [Synthroid] 175 mcg PO DAILY 03/09/19 10/18/20 History Furosemide [Lasix] 20 mg PO DAILY PRN 06/17/19 10/18/20 History Insulin NPH Human Isophane 14 units SQ DAILY 06/17/19 10/18/20 History [NovoLIN N] Insulin NPH Human Isophane 16 units SQ HS 06/17/19 10/18/20 History [NovoLIN N] Insulin Regular, Human [NovoLIN R] See Protocol SQ AC-TID 06/17/19 10/18/20 History Spironolactone 12.5 mg PO DAILY 06/17/19 10/18/20 History Warfarin [Coumadin] 2.5 mg PO [id number]@2100 06/17/19 10/18/20 History Clopidogrel [Plavix] 75 mg PO DAILY 10/18/20 10/18/20 History Ergocalciferol [Vitamin D2 (1250 1,250 mcg PO ESQUEDA 10/18/20 10/18/20 History Mcg = 13741 Iu)] Isosorbide Mononitrate ER [Imdur] 30 mg PO DAILY 10/18/20 10/18/20 History Losartan Potassium 100 mg PO DAILY 10/18/20 10/18/20 History Metoprolol Succinate (ER) [Toprol 100 mg PO DAILY 10/18/20 10/18/20 History Xl] Nitroglycerin Sl Tabs [Nitrostat] 0.4 mg SL Q5M PRN 10/18/20 10/18/20 History Allergies Allergy/AdvReac Type Severity Reaction Status Date / Time Penicillins Allergy Rash/Hives Verified 10/18/20 09:49 Physical Exam Vitals: Vital Signs Temp Pulse Pulse Resp BP BP Pulse Ox 10/19/20 07:00 61 25 H 119/96 97 10/19/20 06:45 57 L 27 H 95 10/19/20 06:30 60 26 H 97/47 96 10/19/20 06:15 61 24 93 L 10/19/20 06:00 59 L 29 H 104/82 97 10/19/20 05:45 61 22 97 10/19/20 05:30 58 L 28 H 116/58 94 L 10/19/20 05:15 60 27 H 96 10/19/20 05:00 64 28 H 105/67 95 10/19/20 04:45 63 34 H 97 10/19/20 04:30 65 34 H 98/48 98 10/19/20 04:15 62 27 H 97 10/19/20 04:00 98.1 F 63 27 H 121/45 97 10/19/20 03:45 64 31 H 97 10/19/20 03:30 66 34 H 111/28 98 10/19/20 03:15 65 36 H 98 10/19/20 03:00 64 30 H 113/64 100 10/19/20 02:45 62 26 H 98 10/19/20 02:30 64 31 H 115/40 98 10/19/20 02:15 62 27 H 99 10/19/20 02:00 60 25 H 109/67 98 10/19/20 01:45 62 26 H 109/67 99 10/19/20 01:30 64 24 90/46 99 10/19/20 01:15 64 30 H 76/46 98 10/19/20 01:00 65 32 H 84/43 97 10/19/20 00:45 64 25 H 92/50 97 10/19/20 00:30 65 30 H 71/44 97 10/19/20 00:15 67 27 H 72/48 97 10/19/20 00:14 67 26 H 72/48 97 10/19/20 00:00 97.9 F 70 27 H 105/25 98 10/18/20 23:30 70 28 H 150/102 98 10/18/20 23:00 73 30 H 141/54 98 10/18/20 22:30 76 34 H 120/59 99 10/18/20 22:00 73 31 H 87/49 99 10/18/20 21:30 77 37 H 115/69 98 10/18/20 21:00 77 29 H 121/50 99 10/18/20 20:35 89 36 H 121/50 100 10/18/20 20:00 98.4 F 99 33 H 139/41 98 10/18/20 19:30 92 32 H 115/64 98 10/18/20 19:00 98 28 H 115/64 98 10/18/20 18:30 93 30 H 126/26 97 10/18/20 18:00 99 28 H 115/89 97 10/18/20 17:30 102.6 F H 101 H 31 H 114/83 97 10/18/20 17:07 120 H 32 H 96 10/18/20 16:40 134 H 38 H 123/57 99 10/18/20 16:26 98.4 F 132 H 40 H 84/35 94 L 10/18/20 16:13 130 H 32 H 84/51 93 L 10/18/20 15:11 98.3 F 112 H 16 120/72 94 L 10/18/20 13:00 98.6 F 93 16 124/81 93 L 10/18/20 10:00 16 10/18/20 09:55 98.4 F 102 H 16 94/50 92 L 10/18/20 08:54 98.0 F 103 H 20 109/76 99 Intake and Output 10/18/20 10/19/20 10/19/20 22:59 06:59 14:59 Intake Total 881.223 8843.319 100 Output Total 60 45 5 Balance 127.688 8941.319 95 Intake: IV 420 800 100 Invasive Line 1 10 Invasive Line 2 10 Sodium Chloride 0.9% 1, 400 800 100 000 ml @ 100 mls/hr IV . Q10H [facility] Rx#:[id number] Intake, IV Titration 400.958 345.319 0 Amount D5-0.45% NaCl with KCl 100 20Meq/l 1,000 ml @ 100 mls/hr IV .Q10H [facility] Rx#: [id number] Insulin Regular 100 unit 50.958 18.517 0 In Sodium Chloride 0.9% 100 ml @ 0.1 UNITS/KG/HR 8.888 mls/hr IV .[id number] [facility] Rx#:[id number] Norepinephrine 4 mg In 176.802 Sodium Chloride 0.9% 250 ml @ 0.05 MCG/KG/MIN 16. 764 mls/hr IV .[id number] [facility] Rx#:[id number] Vancomycin 1,500 mg In 250 Sodium Chloride 0.9% 250 ml @ 125 mls/hr IVPB ONCE ONE Rx#:[id number] cefTRIAXone 2 gm In 50 Sodium Chloride 0.9% 50 ml @ 100 mls/hr IVPB Q12HR [facility] Rx#:[id number] metroNIDAZOLE-NS PMX 500 100 mg In Saline 1 100ml.bag @ 100 mls/hr IVPB Q8HR [facility] Rx#:[id number] Output: Urine 60 45 5 Other: Voiding Method Indwelling Catheter Indwelling Catheter Weight 95.3 kg ABP, PAP, CO, CI - Last 8 Hours Arterial Blood Pressure 104/47 Arterial Blood Pressure 101/45 Arterial Blood Pressure 106/47 Arterial Blood Pressure 97/41 Arterial Blood Pressure 106/51 Arterial Blood Pressure 85/42 Arterial Blood Pressure 100/48 Arterial Blood Pressure 100/48 Arterial Blood Pressure 108/57 Arterial Blood Pressure 101/48 Arterial Blood Pressure 110/53 Arterial Blood Pressure 83/41 Arterial Blood Pressure 93/44 Arterial Blood Pressure 107/48 Arterial Blood Pressure 121/52 Arterial Blood Pressure 128/56 Arterial Blood Pressure 104/50 Arterial Blood Pressure 94/44 Arterial Blood Pressure 142/128 Arterial Blood Pressure 101/46 Arterial Blood Pressure 105/48 Arterial Blood Pressure 112/49 Arterial Blood Pressure 104/57 Results General: ill appearing, no distress, appears at stated age Derm: warm, dry Head: atraumatic, normocephalic, symmetric Eyes: EOMI, no lid lag, anicteric sclera, pupils equal round reactive to light ENT: Nose and ears atraumatic, no thrush, no pharyngeal erythema Neck: No thyromegaly, no cervical lymphadenopathy, trachea midline, supple Mouth: no lip lesion, mucus membranes moist Cardiovascular: S1S2 reg, no murmur, positive posterior tibial pulse bilateral, no edema, capillary refill less than 2 seconds Lungs: clear to ascultation bilateral, no ronchi, no rales, no wheeze, no accessory muscle use Abdominal: soft, nontender to palpation, no guarding, no appreciable organomegaly, normal bowel sounds Ext: no gross muscle atrophy, muscle strength muscle strength 5 out of 5 in all 4 extremities, no contractures Neuro: CN II-XI grossly intact, light touch intact all 4 extremities, finger to nose within normal limits, Psych: Alert, oriented, appropriate affect - Laboratory Findings CBC and BMP: 10/19/20 03:45 10/19/20 03:45 ABG ABG pH 7.39 (7.35-7.45) 10/18/20 18:45 ABG pCO2 28 mmHg (35-45) L 10/18/20 18:45 ABG pO2 221 mmHg (83-108) H 10/18/20 18:45 ABG O2 Saturation 99.4 % (94-97) H 10/18/20 18:45 PT/INR, D-dimer PT 47.7 sec (9.0-12.0) H 10/19/20 04:00 INR 4.9 (<1.2) H 10/19/20 04:00 Abnormal lab findings: Abnormal Labs 10/18/20 10/18/20 10/18/20 06:52 06:52 06:52 WBC 11.7 H Plt Count 107 L Neutrophils # 11.1 H Lymphocytes # 0.2 L PT 25.1 H INR 2.6 H Fibrinogen ABG pCO2 ABG pO2 ABG HCO3 ABG Total CO2 ABG O2 Saturation VBG pH VBG HCO3 Sodium 131 L Potassium 5.3 H Carbon Dioxide 14 L BUN 55 H Creatinine 2.30 H Glucose 410 H POC Glucose (mg/dL) Plasma Lactic Acid Walt Calcium Magnesium 1.4 L Total Bilirubin 3.0 H AST Creatine Kinase Troponin I Total Protein Albumin Procalcitonin Urine Appearance Urine RBC Urine WBC Urine WBC Clumps Amorphous Sediment Urine Bacteria Hyaline Casts 10/18/20 10/18/20 10/18/20 06:52 06:52 08:23 WBC Plt Count Neutrophils # Lymphocytes # PT INR Fibrinogen ABG pCO2 ABG pO2 ABG HCO3 ABG Total CO2 ABG O2 Saturation VBG pH VBG HCO3 Sodium Potassium Carbon Dioxide BUN Creatinine Glucose POC Glucose (mg/dL) Plasma Lactic Acid Walt 3.8 H* Calcium Magnesium Total Bilirubin AST Creatine Kinase Troponin I 0.960 H* Total Protein Albumin Procalcitonin Urine Appearance Cloudy H Urine RBC 16 H Urine WBC 8 H Urine WBC Clumps Rare H Amorphous Sediment Few H Urine Bacteria Occasional H Hyaline Casts 24 H 10/18/20 10/18/20 10/18/20 10:11 10:36 10:36 WBC Plt Count Neutrophils # Lymphocytes # PT INR Fibrinogen ABG pCO2 ABG pO2 ABG HCO3 ABG Total CO2 ABG O2 Saturation VBG pH VBG HCO3 Sodium Potassium Carbon Dioxide BUN Creatinine Glucose POC Glucose (mg/dL) 436 H Plasma Lactic Acid Walt 2.7 H* Calcium Magnesium Total Bilirubin AST Creatine Kinase Troponin I 1.230 H* Total Protein Albumin Procalcitonin Urine Appearance Urine RBC Urine WBC Urine WBC Clumps Amorphous Sediment Urine Bacteria Hyaline Casts 10/18/20 10/18/20 10/18/20 11:46 12:46 13:26 WBC Plt Count Neutrophils # Lymphocytes # PT INR Fibrinogen ABG pCO2 ABG pO2 ABG HCO3 ABG Total CO2 ABG O2 Saturation VBG pH VBG HCO3 Sodium Potassium Carbon Dioxide BUN Creatinine Glucose POC Glucose (mg/dL) 466 H 406 H Plasma Lactic Acid Walt Calcium Magnesium Total Bilirubin AST Creatine Kinase Troponin I 1.280 H* Total Protein Albumin Procalcitonin Urine Appearance Urine RBC Urine WBC Urine WBC Clumps Amorphous Sediment Urine Bacteria Hyaline Casts 10/18/20 10/18/20 10/18/20 13:26 13:26 13:26 WBC Plt Count Neutrophils # Lymphocytes # PT INR Fibrinogen ABG pCO2 ABG pO2 ABG HCO3 ABG Total CO2 ABG O2 Saturation VBG pH VBG HCO3 Sodium 135 L Potassium Carbon Dioxide 16 L BUN 62 H Creatinine 2.52 H Glucose 403 H POC Glucose (mg/dL) Plasma Lactic Acid Walt 2.7 H* Calcium Magnesium Total Bilirubin AST Creatine Kinase Troponin I Total Protein Albumin Procalcitonin 11.02 H Urine Appearance Urine RBC Urine WBC Urine WBC Clumps Amorphous Sediment Urine Bacteria Hyaline Casts 10/18/20 10/18/20 10/18/20 14:58 15:01 16:00 WBC Plt Count Neutrophils # Lymphocytes # PT INR Fibrinogen ABG pCO2 ABG pO2 ABG HCO3 ABG Total CO2 ABG O2 Saturation VBG pH 7.25 L VBG HCO3 16 L Sodium Potassium Carbon Dioxide BUN Creatinine Glucose POC Glucose (mg/dL) 306 H Plasma Lactic Acid Walt 7.5 H* Calcium Magnesium Total Bilirubin AST Creatine Kinase Troponin I Total Protein Albumin Procalcitonin Urine Appearance Urine RBC Urine WBC Urine WBC Clumps Amorphous Sediment Urine Bacteria Hyaline Casts 10/18/20 10/18/20 10/18/20 16:06 16:29 17:08 WBC Plt Count Neutrophils # Lymphocytes # PT INR Fibrinogen ABG pCO2 ABG pO2 ABG HCO3 ABG Total CO2 ABG O2 Saturation VBG pH VBG HCO3 Sodium Potassium Carbon Dioxide BUN Creatinine Glucose POC Glucose (mg/dL) 322 H 280 H 274 H Plasma Lactic Acid Walt Calcium Magnesium Total Bilirubin AST Creatine Kinase Troponin I Total Protein Albumin Procalcitonin Urine Appearance Urine RBC Urine WBC Urine WBC Clumps Amorphous Sediment Urine Bacteria Hyaline Casts 10/18/20 10/18/20 10/18/20 17:44 17:44 17:44 WBC Plt Count Neutrophils # Lymphocytes # PT 31.5 H INR 3.3 H Fibrinogen ABG pCO2 ABG pO2 ABG HCO3 ABG Total CO2 ABG O2 Saturation VBG pH VBG HCO3 Sodium Potassium Carbon Dioxide 15 L BUN 62 H Creatinine 2.42 H Glucose 240 H POC Glucose (mg/dL) Plasma Lactic Acid Walt Calcium Magnesium Total Bilirubin AST Creatine Kinase Troponin I 1.170 H* Total Protein Albumin Procalcitonin Urine Appearance Urine RBC Urine WBC Urine WBC Clumps Amorphous Sediment Urine Bacteria Hyaline Casts 10/18/20 10/18/20 10/18/20 18:20 18:45 19:06 WBC Plt Count Neutrophils # Lymphocytes # PT INR Fibrinogen ABG pCO2 28 L ABG pO2 221 H ABG HCO3 17 L ABG Total CO2 18 L ABG O2 Saturation 99.4 H VBG pH VBG HCO3 Sodium Potassium Carbon Dioxide BUN Creatinine Glucose POC Glucose (mg/dL) 207 H 158 H Plasma Lactic Acid Walt Calcium Magnesium Total Bilirubin AST Creatine Kinase Troponin I Total Protein Albumin Procalcitonin Urine Appearance Urine RBC Urine WBC Urine WBC Clumps Amorphous Sediment Urine Bacteria Hyaline Casts 10/18/20 10/18/20 10/18/20 19:45 19:45 19:45 WBC Plt Count Neutrophils # Lymphocytes # PT INR Fibrinogen 511 H ABG pCO2 ABG pO2 ABG HCO3 ABG Total CO2 ABG O2 Saturation VBG pH VBG HCO3 Sodium 135 L Potassium Carbon Dioxide 15 L BUN Creatinine Glucose POC Glucose (mg/dL) Plasma Lactic Acid Walt 3.8 H* Calcium Magnesium Total Bilirubin AST Creatine Kinase 158 H Troponin I Total Protein Albumin Procalcitonin Urine Appearance Urine RBC Urine WBC Urine WBC Clumps Amorphous Sediment Urine Bacteria Hyaline Casts 10/18/20 10/18/20 10/18/20 20:33 22:03 23:43 WBC Plt Count Neutrophils # Lymphocytes # PT INR Fibrinogen ABG pCO2 ABG pO2 ABG HCO3 ABG Total CO2 ABG O2 Saturation VBG pH VBG HCO3 Sodium Potassium Carbon Dioxide BUN Creatinine Glucose POC Glucose (mg/dL) 238 H 187 H 128 H Plasma Lactic Acid Walt Calcium Magnesium Total Bilirubin AST Creatine Kinase Troponin I Total Protein Albumin Procalcitonin Urine Appearance Urine RBC Urine WBC Urine WBC Clumps Amorphous Sediment Urine Bacteria Hyaline Casts 10/19/20 10/19/20 10/19/20 00:10 00:10 00:10 WBC Plt Count 95 L Neutrophils # Lymphocytes # 0.3 L PT INR Fibrinogen ABG pCO2 ABG pO2 ABG HCO3 ABG Total CO2 ABG O2 Saturation VBG pH VBG HCO3 Sodium 135 L Potassium Carbon Dioxide 16 L BUN 64 H Creatinine 2.82 H Glucose 129 H POC Glucose (mg/dL) Plasma Lactic Acid Walt 2.4 H* Calcium 8.3 L Magnesium Total Bilirubin 1.5 H AST 85 H Creatine Kinase Troponin I Total Protein 5.6 L Albumin 2.7 L Procalcitonin Urine Appearance Urine RBC Urine WBC Urine WBC Clumps Amorphous Sediment Urine Bacteria Hyaline Casts 10/19/20 10/19/20 10/19/20 03:45 03:45 03:45 WBC 14.8 H Plt Count 126 L Neutrophils # Lymphocytes # PT INR Fibrinogen ABG pCO2 ABG pO2 ABG HCO3 ABG Total CO2 ABG O2 Saturation VBG pH VBG HCO3 Sodium 134 L Potassium 5.3 H Carbon Dioxide 14 L BUN 64 H Creatinine 2.79 H Glucose 132 H POC Glucose (mg/dL) Plasma Lactic Acid Walt 2.8 H* Calcium Magnesium Total Bilirubin 2.1 H AST 136 H Creatine Kinase Troponin I Total Protein 6.2 L Albumin 3.0 L Procalcitonin Urine Appearance Urine RBC Urine WBC Urine WBC Clumps Amorphous Sediment Urine Bacteria Hyaline Casts 10/19/20 10/19/20 10/19/20 03:58 04:00 05:09 WBC Plt Count Neutrophils # Lymphocytes # PT 47.7 H INR 4.9 H Fibrinogen ABG pCO2 ABG pO2 ABG HCO3 ABG Total CO2 ABG O2 Saturation VBG pH VBG HCO3 Sodium Potassium Carbon Dioxide BUN Creatinine Glucose POC Glucose (mg/dL) 135 H 137 H Plasma Lactic Acid Walt Calcium Magnesium Total Bilirubin AST Creatine Kinase Troponin I Total Protein Albumin Procalcitonin Urine Appearance Urine RBC Urine WBC Urine WBC Clumps Amorphous Sediment Urine Bacteria Hyaline Casts 10/19/20 07:00 WBC Plt Count Neutrophils # Lymphocytes # PT INR Fibrinogen ABG pCO2 ABG pO2 ABG HCO3 ABG Total CO2 ABG O2 Saturation VBG pH VBG HCO3 Sodium Potassium Carbon Dioxide BUN Creatinine Glucose POC Glucose (mg/dL) 145 H Plasma Lactic Acid Walt Calcium Magnesium Total Bilirubin AST Creatine Kinase Troponin I Total Protein Albumin Procalcitonin Urine Appearance Urine RBC Urine WBC Urine WBC Clumps Amorphous Sediment Urine Bacteria Hyaline Casts - Diagnostic Findings Chest x-ray: image reviewed Assessment and Plan Plan: 1 diabetes mellitus with mild component of DKA and intravascular volume depletion, improved with fluid resuscitation currently the patient is also on pressors low-dose and she is under further investigation regarding her ongoing multiple issues. For now, in terms of her deteriorated edema, the most recent anion gap was at 13 with a serum bicarb of 14 and a blood sugar of 145. She remains on insulin drip at 1.1 units an hour and she is also on D5 half-normal saline at the rate of 100 and cc an hour. 2 febrile illness, consider underlying sepsis 3 hypotension, resuscitated with IV fluids received a total of 4 L currently on pressors. She was also given a combination of antibiotics including Rocephin and Flagyl and vancomycin. Cultures are still pending for now. CAT scan of the abdomen and pelvis is negative 4 acute lactic acidosis, improved and lactic acid level is down to 2.8 5 coronary artery disease with previous bypass surgery 6 abnormal troponin, consider non-STEMI, patient is free of any chest pain 7 paroxysmal atrial fibrillation currently in normal sinus rhythm. INR is at 4.9 from this morning, no signs of any acute bleeding 8 non-small cell lung cancer, stage IIIB post chemoradiation therapy. Most recent PET scan from August 2020 was essentially within stable state and the patient had no significant metabolic activity noted to suggest tumor recurrence 9 bilateral pleural effusion more so on the left, slight increased in the size of the pleural effusion based on the most recent PET scan 10 heart failure, systolic in nature with a previous ejection fraction of 30-35% 11 Coumadin toxicity, without any signs of bleeding, INR is at 4.9 12 acute kidney injury,, creatinine today is at 2.8. Plan Wean off pressors and discontinue Wean off FiO2 and the patient will be switched down to 5 L of oxygen by nasal cannula Continue insulin drip for now Continue D5 half-normal and repeat another set of electrolytes Monitor renal function and obtain ultrasound the kidneys Repeat an echocardiogram Unsure if the patient has any septic event. Continue Rocephin and stop the vancomycin and Flagyl for now Hold Coumadin and give the patient 5 of vitamin K in consideration for left- sided thoracentesis later stage Keep the patient ICU for now. Hold Aldactone. Hold Lasix. Hold Cozaar. The value of pro-calcitonin would be suboptimal due to underlying renal failure.
[2020-10-19] MEDS ORDERED: ATORVASTATIN 40 MG TAB PO SCH (09:00)
[2020-10-19] MEDS ORDERED: METOPROLOL SUCCINATE (ER) 100 MG TAB.ER.24H PO SCH (09:00)
[2020-10-19 09:01] LABS: Glucose,Whole Blood 228 mg/dL (75-99)
[2020-10-19] MEDS: CLOPIDOGREL 75 MG TAB PO SCH (09:19)
[2020-10-19] MEDS: ASPIRIN 81 MG PO SCH (09:19)
[2020-10-19 09:25] LABS: Chol/HDL Ratio 3.74; LDL Cholesterol,Calculated 22.2 mg/dL (0.0-131.0); VLDL Calculation 29.8 mg/dL (5.00-40.00)
[2020-10-19] MEDS: ISOSORBIDE MONONITRATE ER 30 MG TAB.ER.24H PO SCH (09:40)
[2020-10-19] MEDS: METOPROLOL SUCCINATE (ER) 100 MG TAB.ER.24H PO SCH (09:41)
[2020-10-19 10:09] LABS: Potassium 5.3 mmol/L (3.5-5.1)
--- NOTE | 2020-10-19 10:53 | P.PN ---
Subjective Progress Note Date: 10/19/20 Patient is awake and alert. She was seen and evaluated by me in the ICU. She is currently requiring low dose of norepinephrine to maintain her mean arterial pressure greater than 65. Patient herself denies any specific concerns or complaints. Objective - Vital Signs Vital signs: Vital Signs Temp 98.1 F 10/19/20 04:00 Pulse 61 10/19/20 07:00 Resp 25 H 10/19/20 07:00 BP 119/96 10/19/20 07:00 Pulse Ox 97 10/19/20 07:55 Intake & Output 10/18/20 10/19/20 10/19/20 18:59 06:59 18:59 Intake Total 275.655 5366.241 100 Output Total 105 5 Balance 366.911 7034.241 95 Weight 88 kg 95.3 kg Intake: IV 130 1100 100 Invasive Line 1 20 Invasive Line 2 10 Sodium Chloride 0.9% 1, 100 1100 100 000 ml @ 100 mls/hr IV . Q10H [facility] Rx#:[id number] Intake, IV Titration 9.036 737.241 0 Amount D5-0.45% NaCl with KCl 100 20Meq/l 1,000 ml @ 100 mls/hr IV .Q10H [facility] Rx#: [id number] Insulin Regular 100 unit 9.036 60.439 0 In Sodium Chloride 0.9% 100 ml @ 0.1 UNITS/KG/HR 8.888 mls/hr IV .[id number] [facility] Rx#:[id number] Norepinephrine 4 mg In 176.802 Sodium Chloride 0.9% 250 ml @ 0.05 MCG/KG/MIN 16. 764 mls/hr IV .[id number] [facility] Rx#:[id number] Vancomycin 1,500 mg In 250 Sodium Chloride 0.9% 250 ml @ 125 mls/hr IVPB ONCE ONE Rx#:[id number] cefTRIAXone 2 gm In 50 Sodium Chloride 0.9% 50 ml @ 100 mls/hr IVPB Q12HR [facility] Rx#:[id number] metroNIDAZOLE-NS PMX 500 100 mg In Saline 1 100ml.bag @ 100 mls/hr IVPB Q8HR [facility] Rx#:[id number] Oral 300 Output: Urine 105 5 Other: Voiding Method Toilet Indwelling Catheter ABP, PAP, CO, CI - Last Documented Arterial Blood Pressure 104/47 - Exam General: The patient is awake and alert, in no distress Eye: there is normal conjunctiva bilaterally. Neck: The neck is supple, there is no JVD. Cardiovascular: Normal S1-S2, no S3-S4, no murmurs. Respiratory: Lungs clear to auscultation bilaterally Gastrointestinal: Abdomen is soft, nontender Musculoskeletal: There is no pedal edema. Neurological:. Speech is normal. Skin: Skin is warm and dry - Labs CBC & Chem 7: 10/19/20 03:45 10/19/20 09:39 Labs: Abnormal Lab Results - Last 24 Hours (Table) 10/18/20 10/18/20 10/18/20 Range/Units 10:36 10:36 11:46 WBC (3.8-10.6) k/uL Plt Count (150-450) k/uL Lymphocytes # (1.0-4.8) k/uL PT (9.0-12.0) sec INR (<1.2) Fibrinogen (200-500) mg/dL ABG pCO2 (35-45) mmHg ABG pO2 (83-108) mmHg ABG HCO3 (21-25) mmol/L ABG Total CO2 (19-24) mmol/L ABG O2 Saturation (94-97) % VBG pH (7.31-7.41) VBG HCO3 (24-28) mmol/L Sodium (137-145) mmol/L Potassium (3.5-5.1) mmol/L Carbon Dioxide (22-30) mmol/L BUN (7-17) mg/dL Creatinine (0.52-1.04) mg/dL Glucose (74-99) mg/dL POC Glucose (mg/dL) 466 H (75-99) mg/dL Plasma Lactic Acid Walt 2.7 H* (0.7-2.0) mmol/L Calcium (8.4-10.2) mg/dL Total Bilirubin (0.2-1.3) mg/dL AST (14-36) U/L Creatine Kinase (30-135) U/L Troponin I 1.230 H* (0.000-0.034) ng/mL Total Protein (6.3-8.2) g/dL Albumin (3.5-5.0) g/dL HDL Cholesterol (40.0-60.0) mg/dL Procalcitonin (0.02-0.09) ng/mL 10/18/20 10/18/20 10/18/20 Range/Units 12:46 13:26 13:26 WBC (3.8-10.6) k/uL Plt Count (150-450) k/uL Lymphocytes # (1.0-4.8) k/uL PT (9.0-12.0) sec INR (<1.2) Fibrinogen (200-500) mg/dL ABG pCO2 (35-45) mmHg ABG pO2 (83-108) mmHg ABG HCO3 (21-25) mmol/L ABG Total CO2 (19-24) mmol/L ABG O2 Saturation (94-97) % VBG pH (7.31-7.41) VBG HCO3 (24-28) mmol/L Sodium (137-145) mmol/L Potassium (3.5-5.1) mmol/L Carbon Dioxide (22-30) mmol/L BUN (7-17) mg/dL Creatinine (0.52-1.04) mg/dL Glucose (74-99) mg/dL POC Glucose (mg/dL) 406 H (75-99) mg/dL Plasma Lactic Acid Walt (0.7-2.0) mmol/L Calcium (8.4-10.2) mg/dL Total Bilirubin (0.2-1.3) mg/dL AST (14-36) U/L Creatine Kinase (30-135) U/L Troponin I 1.280 H* (0.000-0.034) ng/mL Total Protein (6.3-8.2) g/dL Albumin (3.5-5.0) g/dL HDL Cholesterol (40.0-60.0) mg/dL Procalcitonin 11.02 H (0.02-0.09) ng/mL 10/18/20 10/18/20 10/18/20 Range/Units 13:26 13:26 14:58 WBC (3.8-10.6) k/uL Plt Count (150-450) k/uL Lymphocytes # (1.0-4.8) k/uL PT (9.0-12.0) sec INR (<1.2) Fibrinogen (200-500) mg/dL ABG pCO2 (35-45) mmHg ABG pO2 (83-108) mmHg ABG HCO3 (21-25) mmol/L ABG Total CO2 (19-24) mmol/L ABG O2 Saturation (94-97) % VBG pH (7.31-7.41) VBG HCO3 (24-28) mmol/L Sodium 135 L (137-145) mmol/L Potassium (3.5-5.1) mmol/L Carbon Dioxide 16 L (22-30) mmol/L BUN 62 H (7-17) mg/dL Creatinine 2.52 H (0.52-1.04) mg/dL Glucose 403 H (74-99) mg/dL POC Glucose (mg/dL) 306 H (75-99) mg/dL Plasma Lactic Acid Walt 2.7 H* (0.7-2.0) mmol/L Calcium (8.4-10.2) mg/dL Total Bilirubin (0.2-1.3) mg/dL AST (14-36) U/L Creatine Kinase (30-135) U/L Troponin I (0.000-0.034) ng/mL Total Protein (6.3-8.2) g/dL Albumin (3.5-5.0) g/dL HDL Cholesterol (40.0-60.0) mg/dL Procalcitonin (0.02-0.09) ng/mL 10/18/20 10/18/20 10/18/20 Range/Units 15:01 16:00 16:06 WBC (3.8-10.6) k/uL Plt Count (150-450) k/uL Lymphocytes # (1.0-4.8) k/uL PT (9.0-12.0) sec INR (<1.2) Fibrinogen (200-500) mg/dL ABG pCO2 (35-45) mmHg ABG pO2 (83-108) mmHg ABG HCO3 (21-25) mmol/L ABG Total CO2 (19-24) mmol/L ABG O2 Saturation (94-97) % VBG pH 7.25 L (7.31-7.41) VBG HCO3 16 L (24-28) mmol/L Sodium (137-145) mmol/L Potassium (3.5-5.1) mmol/L Carbon Dioxide (22-30) mmol/L BUN (7-17) mg/dL Creatinine (0.52-1.04) mg/dL Glucose (74-99) mg/dL POC Glucose (mg/dL) 322 H (75-99) mg/dL Plasma Lactic Acid Walt 7.5 H* (0.7-2.0) mmol/L Calcium (8.4-10.2) mg/dL Total Bilirubin (0.2-1.3) mg/dL AST (14-36) U/L Creatine Kinase (30-135) U/L Troponin I (0.000-0.034) ng/mL Total Protein (6.3-8.2) g/dL Albumin (3.5-5.0) g/dL HDL Cholesterol (40.0-60.0) mg/dL Procalcitonin (0.02-0.09) ng/mL 10/18/20 10/18/20 10/18/20 Range/Units 16:29 17:08 17:44 WBC (3.8-10.6) k/uL Plt Count (150-450) k/uL Lymphocytes # (1.0-4.8) k/uL PT (9.0-12.0) sec INR (<1.2) Fibrinogen (200-500) mg/dL ABG pCO2 (35-45) mmHg ABG pO2 (83-108) mmHg ABG HCO3 (21-25) mmol/L ABG Total CO2 (19-24) mmol/L ABG O2 Saturation (94-97) % VBG pH (7.31-7.41) VBG HCO3 (24-28) mmol/L Sodium (137-145) mmol/L Potassium (3.5-5.1) mmol/L Carbon Dioxide 15 L (22-30) mmol/L BUN 62 H (7-17) mg/dL Creatinine 2.42 H (0.52-1.04) mg/dL Glucose 240 H (74-99) mg/dL POC Glucose (mg/dL) 280 H 274 H (75-99) mg/dL Plasma Lactic Acid Walt (0.7-2.0) mmol/L Calcium (8.4-10.2) mg/dL Total Bilirubin (0.2-1.3) mg/dL AST (14-36) U/L Creatine Kinase (30-135) U/L Troponin I (0.000-0.034) ng/mL Total Protein (6.3-8.2) g/dL Albumin (3.5-5.0) g/dL HDL Cholesterol (40.0-60.0) mg/dL Procalcitonin (0.02-0.09) ng/mL 10/18/20 10/18/20 10/18/20 Range/Units 17:44 17:44 18:20 WBC (3.8-10.6) k/uL Plt Count (150-450) k/uL Lymphocytes # (1.0-4.8) k/uL PT 31.5 H (9.0-12.0) sec INR 3.3 H (<1.2) Fibrinogen (200-500) mg/dL ABG pCO2 (35-45) mmHg ABG pO2 (83-108) mmHg ABG HCO3 (21-25) mmol/L ABG Total CO2 (19-24) mmol/L ABG O2 Saturation (94-97) % VBG pH (7.31-7.41) VBG HCO3 (24-28) mmol/L Sodium (137-145) mmol/L Potassium (3.5-5.1) mmol/L Carbon Dioxide (22-30) mmol/L BUN (7-17) mg/dL Creatinine (0.52-1.04) mg/dL Glucose (74-99) mg/dL POC Glucose (mg/dL) 207 H (75-99) mg/dL Plasma Lactic Acid Walt (0.7-2.0) mmol/L Calcium (8.4-10.2) mg/dL Total Bilirubin (0.2-1.3) mg/dL AST (14-36) U/L Creatine Kinase (30-135) U/L Troponin I 1.170 H* (0.000-0.034) ng/mL Total Protein (6.3-8.2) g/dL Albumin (3.5-5.0) g/dL HDL Cholesterol (40.0-60.0) mg/dL Procalcitonin (0.02-0.09) ng/mL 10/18/20 10/18/20 10/18/20 Range/Units 18:45 19:06 19:45 WBC (3.8-10.6) k/uL Plt Count (150-450) k/uL Lymphocytes # (1.0-4.8) k/uL PT (9.0-12.0) sec INR (<1.2) Fibrinogen (200-500) mg/dL ABG pCO2 28 L (35-45) mmHg ABG pO2 221 H (83-108) mmHg ABG HCO3 17 L (21-25) mmol/L ABG Total CO2 18 L (19-24) mmol/L ABG O2 Saturation 99.4 H (94-97) % VBG pH (7.31-7.41) VBG HCO3 (24-28) mmol/L Sodium 135 L (137-145) mmol/L Potassium (3.5-5.1) mmol/L Carbon Dioxide 15 L (22-30) mmol/L BUN (7-17) mg/dL Creatinine (0.52-1.04) mg/dL Glucose (74-99) mg/dL POC Glucose (mg/dL) 158 H (75-99) mg/dL Plasma Lactic Acid Walt (0.7-2.0) mmol/L Calcium (8.4-10.2) mg/dL Total Bilirubin (0.2-1.3) mg/dL AST (14-36) U/L Creatine Kinase 158 H (30-135) U/L Troponin I (0.000-0.034) ng/mL Total Protein (6.3-8.2) g/dL Albumin (3.5-5.0) g/dL HDL Cholesterol (40.0-60.0) mg/dL Procalcitonin (0.02-0.09) ng/mL 10/18/20 10/18/20 10/18/20 Range/Units 19:45 19:45 20:33 WBC (3.8-10.6) k/uL Plt Count (150-450) k/uL Lymphocytes # (1.0-4.8) k/uL PT (9.0-12.0) sec INR (<1.2) Fibrinogen 511 H (200-500) mg/dL ABG pCO2 (35-45) mmHg ABG pO2 (83-108) mmHg ABG HCO3 (21-25) mmol/L ABG Total CO2 (19-24) mmol/L ABG O2 Saturation (94-97) % VBG pH (7.31-7.41) VBG HCO3 (24-28) mmol/L Sodium (137-145) mmol/L Potassium (3.5-5.1) mmol/L Carbon Dioxide (22-30) mmol/L BUN (7-17) mg/dL Creatinine (0.52-1.04) mg/dL Glucose (74-99) mg/dL POC Glucose (mg/dL) 238 H (75-99) mg/dL Plasma Lactic Acid Walt 3.8 H* (0.7-2.0) mmol/L Calcium (8.4-10.2) mg/dL Total Bilirubin (0.2-1.3) mg/dL AST (14-36) U/L Creatine Kinase (30-135) U/L Troponin I (0.000-0.034) ng/mL Total Protein (6.3-8.2) g/dL Albumin (3.5-5.0) g/dL HDL Cholesterol (40.0-60.0) mg/dL Procalcitonin (0.02-0.09) ng/mL 10/18/20 10/18/20 10/19/20 Range/Units 22:03 23:43 00:10 WBC (3.8-10.6) k/uL Plt Count (150-450) k/uL Lymphocytes # (1.0-4.8) k/uL PT (9.0-12.0) sec INR (<1.2) Fibrinogen (200-500) mg/dL ABG pCO2 (35-45) mmHg ABG pO2 (83-108) mmHg ABG HCO3 (21-25) mmol/L ABG Total CO2 (19-24) mmol/L ABG O2 Saturation (94-97) % VBG pH (7.31-7.41) VBG HCO3 (24-28) mmol/L Sodium (137-145) mmol/L Potassium (3.5-5.1) mmol/L Carbon Dioxide (22-30) mmol/L BUN (7-17) mg/dL Creatinine (0.52-1.04) mg/dL Glucose (74-99) mg/dL POC Glucose (mg/dL) 187 H 128 H (75-99) mg/dL Plasma Lactic Acid Walt 2.4 H* (0.7-2.0) mmol/L Calcium (8.4-10.2) mg/dL Total Bilirubin (0.2-1.3) mg/dL AST (14-36) U/L Creatine Kinase (30-135) U/L Troponin I (0.000-0.034) ng/mL Total Protein (6.3-8.2) g/dL Albumin (3.5-5.0) g/dL HDL Cholesterol (40.0-60.0) mg/dL Procalcitonin (0.02-0.09) ng/mL 10/19/20 10/19/20 10/19/20 Range/Units 00:10 00:10 03:45 WBC (3.8-10.6) k/uL Plt Count 95 L (150-450) k/uL Lymphocytes # 0.3 L (1.0-4.8) k/uL PT (9.0-12.0) sec INR (<1.2) Fibrinogen (200-500) mg/dL ABG pCO2 (35-45) mmHg ABG pO2 (83-108) mmHg ABG HCO3 (21-25) mmol/L ABG Total CO2 (19-24) mmol/L ABG O2 Saturation (94-97) % VBG pH (7.31-7.41) VBG HCO3 (24-28) mmol/L Sodium 135 L 134 L (137-145) mmol/L Potassium 5.3 H (3.5-5.1) mmol/L Carbon Dioxide 16 L 14 L (22-30) mmol/L BUN 64 H 64 H (7-17) mg/dL Creatinine 2.82 H 2.79 H (0.52-1.04) mg/dL Glucose 129 H 132 H (74-99) mg/dL POC Glucose (mg/dL) (75-99) mg/dL Plasma Lactic Acid Walt (0.7-2.0) mmol/L Calcium 8.3 L (8.4-10.2) mg/dL Total Bilirubin 1.5 H 2.1 H (0.2-1.3) mg/dL AST 85 H 136 H (14-36) U/L Creatine Kinase (30-135) U/L Troponin I (0.000-0.034) ng/mL Total Protein 5.6 L 6.2 L (6.3-8.2) g/dL Albumin 2.7 L 3.0 L (3.5-5.0) g/dL HDL Cholesterol 19.0 L (40.0-60.0) mg/dL Procalcitonin (0.02-0.09) ng/mL 10/19/20 10/19/20 10/19/20 Range/Units 03:45 03:45 03:58 WBC 14.8 H (3.8-10.6) k/uL Plt Count 126 L (150-450) k/uL Lymphocytes # (1.0-4.8) k/uL PT (9.0-12.0) sec INR (<1.2) Fibrinogen (200-500) mg/dL ABG pCO2 (35-45) mmHg ABG pO2 (83-108) mmHg ABG HCO3 (21-25) mmol/L ABG Total CO2 (19-24) mmol/L ABG O2 Saturation (94-97) % VBG pH (7.31-7.41) VBG HCO3 (24-28) mmol/L Sodium (137-145) mmol/L Potassium (3.5-5.1) mmol/L Carbon Dioxide (22-30) mmol/L BUN (7-17) mg/dL Creatinine (0.52-1.04) mg/dL Glucose (74-99) mg/dL POC Glucose (mg/dL) 135 H (75-99) mg/dL Plasma Lactic Acid Walt 2.8 H* (0.7-2.0) mmol/L Calcium (8.4-10.2) mg/dL Total Bilirubin (0.2-1.3) mg/dL AST (14-36) U/L Creatine Kinase (30-135) U/L Troponin I (0.000-0.034) ng/mL Total Protein (6.3-8.2) g/dL Albumin (3.5-5.0) g/dL HDL Cholesterol (40.0-60.0) mg/dL Procalcitonin (0.02-0.09) ng/mL 10/19/20 10/19/20 10/19/20 Range/Units 04:00 05:09 07:00 WBC (3.8-10.6) k/uL Plt Count (150-450) k/uL Lymphocytes # (1.0-4.8) k/uL PT 47.7 H (9.0-12.0) sec INR 4.9 H (<1.2) Fibrinogen (200-500) mg/dL ABG pCO2 (35-45) mmHg ABG pO2 (83-108) mmHg ABG HCO3 (21-25) mmol/L ABG Total CO2 (19-24) mmol/L ABG O2 Saturation (94-97) % VBG pH (7.31-7.41) VBG HCO3 (24-28) mmol/L Sodium (137-145) mmol/L Potassium (3.5-5.1) mmol/L Carbon Dioxide (22-30) mmol/L BUN (7-17) mg/dL Creatinine (0.52-1.04) mg/dL Glucose (74-99) mg/dL POC Glucose (mg/dL) 137 H 145 H (75-99) mg/dL Plasma Lactic Acid Walt (0.7-2.0) mmol/L Calcium (8.4-10.2) mg/dL Total Bilirubin (0.2-1.3) mg/dL AST (14-36) U/L Creatine Kinase (30-135) U/L Troponin I (0.000-0.034) ng/mL Total Protein (6.3-8.2) g/dL Albumin (3.5-5.0) g/dL HDL Cholesterol (40.0-60.0) mg/dL Procalcitonin (0.02-0.09) ng/mL 10/19/20 10/19/20 Range/Units 09:00 09:39 WBC (3.8-10.6) k/uL Plt Count (150-450) k/uL Lymphocytes # (1.0-4.8) k/uL PT (9.0-12.0) sec INR (<1.2) Fibrinogen (200-500) mg/dL ABG pCO2 (35-45) mmHg ABG pO2 (83-108) mmHg ABG HCO3 (21-25) mmol/L ABG Total CO2 (19-24) mmol/L ABG O2 Saturation (94-97) % VBG pH (7.31-7.41) VBG HCO3 (24-28) mmol/L Sodium 133 L (137-145) mmol/L Potassium 5.3 H (3.5-5.1) mmol/L Carbon Dioxide 14 L (22-30) mmol/L BUN 65 H (7-17) mg/dL Creatinine 3.01 H (0.52-1.04) mg/dL Glucose 216 H (74-99) mg/dL POC Glucose (mg/dL) 228 H (75-99) mg/dL Plasma Lactic Acid Walt (0.7-2.0) mmol/L Calcium 8.0 L (8.4-10.2) mg/dL Total Bilirubin (0.2-1.3) mg/dL AST (14-36) U/L Creatine Kinase (30-135) U/L Troponin I (0.000-0.034) ng/mL Total Protein (6.3-8.2) g/dL Albumin (3.5-5.0) g/dL HDL Cholesterol (40.0-60.0) mg/dL Procalcitonin (0.02-0.09) ng/mL Microbiology - Last 24 Hours (Table) 10/18/20 08:30 Blood Culture Gram Stain - Preliminary Blood 10/18/20 08:15 Blood Culture Gram Stain - Preliminary Blood 10/18/20 08:30 Blood Culture - Final Blood 10/18/20 08:15 Blood Culture - Final Blood Assessment and Plan Assessment: This is a 75-year-old female with past medical history significant for left lung cancer now in remission that presented to the emergency room with fevers. Patient was evaluated in the ER and admitted to the hospital for further management of her medical problems noted below. 1. Severe sepsis with septic shock, treated with aggressive IV fluid hydration and antibiotic. Now requiring low-dose vasopressors. Lactic acid improved sign ificantly. Source of infection on exactly. Possibly underlying UTI. Influenza, Covid-19, and C. diff screen negative 2. Gram-positive bacteremia, currently on IV vancomycin. Repeat blood culture ordered today. I would consult infectious disease for further evaluation. 3. DKA, currently on insulin drip. Continue DKA protocol. Aggressive IV fluid hydration. 4. Acute kidney injury, hyperkalemia: Avoid nephrotoxins. Nephrology consulted for further evaluation. 5. Metabolic acidosis secondary to above 6. Troponin elevation, non-thrombotic troponin leak secondary to severe sepsis. Cardiology consulted for further evaluation. Echocardiogram pending. 7. Chronic atrial fibrillation on anticoagulation with Coumadin, supratherapeutic INR vitamin K order 8. Chronic congestive heart failure, systolic. EF of 30-35%. 8. History of lung cancer in remission
[2020-10-19 11:28] LABS: Glucose,Whole Blood 188 mg/dL (75-99)
--- NOTE | 2020-10-19 11:29 | ECHOF ---
Referral Reason:NSTEMI MEASUREMENTS -------- HEIGHT: 162.6 cm WEIGHT: 95.3 kg BP: 104/82 RVIDd: 2.2 cm (< 3.3) IVSd: 1.0 cm (0.6 - 1.1) LVIDd: 4.4 cm (3.9 - 5.3) LVPWd: 1.1 cm (0.6 - 1.1) IVSs: 1.4 cm LVIDs: 4.0 cm LVPWs: 1.3 cm Ao Diam: 2.3 cm (2.0 - 3.7) AV Cusp: 1.4 cm (1.5 - 2.6) LA Diam: 3.7 cm (2.7 - 3.8) MV EXCURSION: 13.536 mm (> 18.000) MV EF SLOPE: 73 mm/s (70 - 150) EPSS: 1.6 cm MV E Kyree: 0.64 m/s MV DecT: 217 ms MV A Kyree: 0.36 m/s MV E/A Ratio: 1.79 AR PHT: 970 ms RAP: 5.00 mmHg RVSP: 38.76 mmHg FINDINGS -------- Sinus rhythm. This was a technically difficult study with suboptimal views. The left ventricular size is normal. Left ventricular wall thickness is normal. There is severe g lobal hypokinesis of LV . Overall left ventricular systolic function is severely impaired with, an EF between 20 - 25 %. The right ventricle is normal in size. The left atrial size is normal. The right atrial size is normal. Lumason used There is mild aortic valve sclerosis. There is mild aortic regurgitation. The mitral valve leaflets are mildly thickened. Mild mitral regurgitation is present. The tricuspid valve appears structurally normal. Mild tricuspid regurgitation present. There is m ild pulmonary hypertension. The right ventricular systolic pressure, as measured by Doppler, is 38. 76mmHg. There is no pulmonic regurgitation present. The aortic root size is normal. Normal inferior vena cava with normal inspiratory collapse consistent with estimated right atrial pre ssure of 5 mmHg. There is no pericardial effusion. CONCLUSIONS -------- 1. Left ventricular wall thickness is normal. 2. There is severe global hypokinesis of LV . 3. Overall left ventricular systolic function is severely impaired with, an EF between 20 - 25 %. 4. The left atrial size is normal. 5. There is mild aortic valve sclerosis. 6. There is mild aortic regurgitation. 7. The mitral valve leaflets are mildly thickened. 8. Mild mitral regurgitation is present. 9. Mild tricuspid regurgitation present. 10. There is mild pulmonary hypertension. 11. There is no pericardial effusion. SOFTWARE BUSINESS ANALYST: Elda Conde RDCS
[2020-10-19] MEDS ORDERED: VANCOMYCIN 1,500 MG in SODIUM CHLORIDE 0.9% 250 ML IVPB ONE ×3 (12:00→21:00)
--- NOTE | 2020-10-19 12:01 | P.CRDCN ---
History of Present Illness History of present illness: HISTORY OF PRESENTING ILLNESS This is a pleasant 75-year-old female past medical history significant for hypertension, coronary artery disease status post bypass grafting and high risk PCI of the left main and LAD, ischemic cardiomyopathy, chronic systolic heart failure, dyslipidemia, diabetes mellitus and paroxysmal atrial fibrillation. She follows in the office with Dr. Villarreal. We have been asked to see in consultation for elevated troponin. She presented to the hospital with generalized weakness and elevated blood sugar. She also was complaining of intermittently having a fever with associated body aches. She denies having any chest pain or shortness of breath. She has had no palpitations or dizziness. She was found to have positive blood cultures with gram-positive cocci. She is currently being treated with IV antibiotics awaiting infectious disease evaluati on. Most recent echocardiogram obtained December 2019 revealed impaired LV systolic function with ejection fraction 40%, grade 3 diastolic dysfunction, severely dilated left atrium, moderate aortic regurgitation, mild mitral regurgitation, [id number] tricuspid regurgitation and mild pulmonary h ypertension. Most recent cardiac catheterization performed in November 2019 she underwent orbital arthrectomy and stenting of the left main with Impella support at [facility]. DIAGNOSTICS EKG reveals sinus mechanism with PVC's, poor R-wave progression and T-wave inversions in the high lateral leads. Telemetry tracings indicate sinus mechanism. Chest xray on admission reveals a small left pleural effusion. Repeat this morning reveals unchanged bilateral perihilar prominence. CT of the abdomen and pelvis unremarkable. Laboratory reviewed, WBC 14.8, hemoglobin 13.5, platelets 126, INR 4.9, sodium 133, potassium 5.3, creatinine 3.01, lactic acid 3, troponin 0.96, 1.23, 1.28 and 1.17, pro-calcitonin 11 Current cardiac medications include atorvastatin 40 mg daily, Plavix 75 mg daily, Lasix 20 mg daily as needed for lower extremity edema, Imdur 30 mg daily, losartan 100 mg daily, Toprol-XL 100 mg daily, Aldactone 12.5 mg daily and warfarin. REVIEW OF SYSTEMS At the time of my exam: CONSTITUTIONAL: Denies fever or chills. CARDIOVASCULAR: Denies chest pain, shortness of breath, orthopnea, PND or palpitations. RESPIRATORY: Denies cough. GASTROINTESTINAL: Denies abdominal pain, diarrhea, constipation, nausea or vomiting. MUSCULOSKELETAL: Denies myalgias. NEUROLOGIC: Denies numbness, tingling, headacbe or weakness. ENDOCRINE: Denies fatigue, weight change, polydipsia or polyurina. GENITOURINARY: Denies burning, hematuria or urgency with micturation. HEMATOLOGIC: Denies history of anemia or bleeding. PHYSICAL EXAMINATION Blood pressure 105/46 heart rate 58 afebrile and maintaining oxygen saturation on nasal cannula. CONSTITUTIONAL: No apparent distress. HEENT: Head is normocephalic. Pupils are equal, round. Sclerae anicteric. Mucous membranes of the mouth are moist. No JVD. Bilateral carotid bruit. CHEST EXAMINATION: Lungs are clear to auscultation. No chest wall tenderness is noted on palpation or with deep breathing. HEART EXAMINATION: Regular rate and rhythm. S1, S2 heard. Systolic ejection murmur at the base, no gallops or rub. ABDOMEN: Soft, nontender. Positive bowel sounds. EXTREMITIES: 2+ peripheral pulses, no lower extremity edema and no calf tendern ess. NEUROLOGIC EXAMINATION: Patient is awake, alert and oriented x3. ASSESSMENT Bacteremia Sepsis with septic shock Acute kidney injury Lactic acidosis Troponin elevation secondary to renal function and sepsis Coronary artery disease s/p bypass grafting and high risk left main PCI Chronic systolic and diastolic heart failure, clinically euvolemic Ischemic cardiomyopathy Hypertension Paroxysmal atrial fibrillation on warfarin, currently maintaining sinus mechanism Dyslipidemia History of lung cancer PLAN Troponin elevation secondary to septic shock, not indicative of primary cardiac ischemia. Echocardiogram has been obtained and will be reviewed. Ongoing treatment of bacteremia per primary care and ID teams. Thank you kindly for this consultation. Nurse Practitioner note has been reviewed, I agree with a documented findings and plan of care. Patient was seen and examined. 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 Last Myocardial Infarction Date:: 2005 History of Any Multi-Drug Resistant Organisms: None Reported Past Surgical History: Adenoidectomy, Coronary Bypass/CABG, Heart Catheterization, Heart Catheterization With Stent, Tonsillectomy Additional Past Surgical History / Comment(s): L caratid endartectomy, PCI with multiple stents, 2005 CABG 3 vessels, colonoscopy, hemangioma removed from around mouth when a child Past Anesthesia/Blood Transfusion Reactions: No Reported Reaction, Motion Sickness Additional Past Anesthesia/Blood Transfusion Reaction / Comment(s): Daughter believes pt received blood with CABG surgery. Date of Last Stent Placement:: 2005 Past Psychological History: No Psychological Hx Reported Smoking Status: Former smoker Past Alcohol Use History: None Reported Past Drug Use History: None Reported - Past Family History Father Family Medical History: Cancer Additional Family Medical History / Comment(s): Father had prostrate cancer. Mother Family Medical History: Respiratory Disorder Additional Family Medical History / Comment(s): Mother had lung disease. Medications and Allergies Home Medications Medication Instructions Recorded Confirmed Type Atorvastatin [Lipitor] 40 mg PO DAILY 03/09/19 10/18/20 History Levothyroxine Sodium [Synthroid] 175 mcg PO DAILY 03/09/19 10/18/20 History Furosemide [Lasix] 20 mg PO DAILY PRN 06/17/19 10/18/20 History Insulin NPH Human Isophane 14 units SQ DAILY 06/17/19 10/18/20 History [NovoLIN N] Insulin NPH Human Isophane 16 units SQ HS 06/17/19 10/18/20 History [NovoLIN N] Insulin Regular, Human [NovoLIN R] See Protocol SQ AC-TID 06/17/19 10/18/20 History Spironolactone 12.5 mg PO DAILY 06/17/19 10/18/20 History Warfarin [Coumadin] 2.5 mg PO [id number]@2100 06/17/19 10/18/20 History Clopidogrel [Plavix] 75 mg PO DAILY 10/18/20 10/18/20 History Ergocalciferol [Vitamin D2 (1250 1,250 mcg PO ESQUEDA 10/18/20 10/18/20 History Mcg = 14330 Iu)] Isosorbide Mononitrate ER [Imdur] 30 mg PO DAILY 10/18/20 10/18/20 History Losartan Potassium 100 mg PO DAILY 10/18/20 10/18/20 History Metoprolol Succinate (ER) [Toprol 100 mg PO DAILY 10/18/20 10/18/20 History Xl] Nitroglycerin Sl Tabs [Nitrostat] 0.4 mg SL Q5M PRN 10/18/20 10/18/20 History Allergies Allergy/AdvReac Type Severity Reaction Status Date / Time Penicillins Allergy Rash/Hives Verified 10/18/20 09:49 Physical Exam Vitals: Vital Signs Temp Pulse Pulse Resp BP BP Pulse Ox 10/19/20 07:55 97 10/19/20 07:00 61 25 H 119/96 97 10/19/20 06:45 57 L 27 H 95 10/19/20 06:30 60 26 H 97/47 96 10/19/20 06:15 61 24 93 L 10/19/20 06:00 59 L 29 H 104/82 97 10/19/20 05:45 61 22 97 10/19/20 05:30 58 L 28 H 116/58 94 L 10/19/20 05:15 60 27 H 96 10/19/20 05:00 64 28 H 105/67 95 10/19/20 04:45 63 34 H 97 10/19/20 04:30 65 34 H 98/48 98 10/19/20 04:15 62 27 H 97 10/19/20 04:00 98.1 F 63 27 H 121/45 97 10/19/20 03:45 64 31 H 97 10/19/20 03:30 66 34 H 111/28 98 10/19/20 03:15 65 36 H 98 10/19/20 03:00 64 30 H 113/64 100 10/19/20 02:45 62 26 H 98 10/19/20 02:30 64 31 H 115/40 98 10/19/20 02:15 62 27 H 99 10/19/20 02:00 60 25 H 109/67 98 10/19/20 01:45 62 26 H 109/67 99 10/19/20 01:30 64 24 90/46 99 10/19/20 01:15 64 30 H 76/46 98 10/19/20 01:00 65 32 H 84/43 97 10/19/20 00:45 64 25 H 92/50 97 10/19/20 00:30 65 30 H 71/44 97 10/19/20 00:15 67 27 H 72/48 97 10/19/20 00:14 67 26 H 72/48 97 10/19/20 00:00 97.9 F 70 27 H 105/25 98 10/18/20 23:30 70 28 H 150/102 98 10/18/20 23:00 73 30 H 141/54 98 10/18/20 22:30 76 34 H 120/59 99 10/18/20 22:00 73 31 H 87/49 99 10/18/20 21:30 77 37 H 115/69 98 10/18/20 21:00 77 29 H 121/50 99 10/18/20 20:35 89 36 H 121/50 100 10/18/20 20:00 98.4 F 99 33 H 139/41 98 10/18/20 19:30 92 32 H 115/64 98 10/18/20 19:00 98 28 H 115/64 98 10/18/20 18:30 93 30 H 126/26 97 10/18/20 18:00 99 28 H 115/89 97 10/18/20 17:30 102.6 F H 101 H 31 H 114/83 97 10/18/20 17:07 120 H 32 H 96 10/18/20 16:40 134 H 38 H 123/57 99 10/18/20 16:26 98.4 F 132 H 40 H 84/35 94 L 10/18/20 16:13 130 H 32 H 84/51 93 L 10/18/20 15:11 98.3 F 112 H 16 120/72 94 L 10/18/20 13:00 98.6 F 93 16 124/81 93 L 10/18/20 10:00 16 10/18/20 09:55 98.4 F 102 H 16 94/50 92 L Intake and Output 10/18/20 10/19/20 10/19/20 22:59 06:59 14:59 Intake Total 466.024 4844.319 100 Output Total 60 45 5 Balance 124.933 5160.319 95 Intake: IV 420 800 100 Invasive Line 1 10 Invasive Line 2 10 Sodium Chloride 0.9% 1, 400 800 100 000 ml @ 100 mls/hr IV . Q10H [facility] Rx#:[id number] Intake, IV Titration 400.958 345.319 0 Amount D5-0.45% NaCl with KCl 100 20Meq/l 1,000 ml @ 100 mls/hr IV .Q10H [facility] Rx#: [id number] Insulin Regular 100 unit 50.958 18.517 0 In Sodium Chloride 0.9% 100 ml @ 0.1 UNITS/KG/HR 8.888 mls/hr IV .[id number] [facility] Rx#:[id number] Norepinephrine 4 mg In 176.802 Sodium Chloride 0.9% 250 ml @ 0.05 MCG/KG/MIN 16. 764 mls/hr IV .[id number] [facility] Rx#:[id number] Vancomycin 1,500 mg In 250 Sodium Chloride 0.9% 250 ml @ 125 mls/hr IVPB ONCE ONE Rx#:[id number] cefTRIAXone 2 gm In 50 Sodium Chloride 0.9% 50 ml @ 100 mls/hr IVPB Q12HR [facility] Rx#:[id number] metroNIDAZOLE-NS PMX 500 100 mg In Saline 1 100ml.bag @ 100 mls/hr IVPB Q8HR [facility] Rx#:[id number] Output: Urine 60 45 5 Other: Voiding Method Indwelling Catheter Indwelling Catheter Weight 95.3 kg ABP, PAP, CO, CI - Last 8 Hours Arterial Blood Pressure 104/47 Arterial Blood Pressure 101/45 Arterial Blood Pressure 106/47 Arterial Blood Pressure 97/41 Arterial Blood Pressure 106/51 Arterial Blood Pressure 85/42 Arterial Blood Pressure 100/48 Arterial Blood Pressure 100/48 Arterial Blood Pressure 108/57 Arterial Blood Pressure 101/48 Arterial Blood Pressure 110/53 Arterial Blood Pressure 83/41 Arterial Blood Pressure 93/44 Arterial Blood Pressure 107/48 Arterial Blood Pressure 121/52 Arterial Blood Pressure 128/56 Arterial Blood Pressure 104/50 Arterial Blood Pressure 94/44 Arterial Blood Pressure 142/128 Arterial Blood Pressure 101/46 Arterial Blood Pressure 105/48 Arterial Blood Pressure 112/49 Results 10/19/20 03:45 10/19/20 09:39 Cardiac Enzymes 10/18/20 10/18/20 10/18/20 Range/Units 10:36 13:26 17:44 AST (14-36) U/L Troponin I 1.230 H* 1.280 H* 1.170 H* (0.000-0.034) ng/mL 10/19/20 10/19/20 Range/Units 00:10 03:45 AST 85 H 136 H (14-36) U/L Troponin I (0.000-0.034) ng/mL Coagulation 10/18/20 10/19/20 Range/Units 17:44 04:00 PT 31.5 H 47.7 H (9.0-12.0) sec Lipids 10/19/20 Range/Units 03:45 Triglycerides 149.0 (0.0-149.0) mg/dL Cholesterol 71 (0-200) mg/dL HDL Cholesterol 19.0 L (40.0-60.0) mg/dL Cholesterol/HDL Ratio 3.74 CBC 10/19/20 10/19/20 Range/Units 00:10 03:45 WBC 8.0 14.8 H (3.8-10.6) k/uL RBC 3.89 4.27 (3.80-5.40) m/uL Hgb 12.1 13.5 (11.4-16.0) gm/dL Hct 38.0 41.9 (34.0-46.0) % Plt Count 95 L 126 L (150-450) k/uL Comprehensive Metabolic Panel 10/18/20 10/18/20 10/18/20 Range/Units 13:26 17:44 19:45 Sodium 135 L 137 135 L (137-145) mmol/L Potassium 4.3 3.9 4.1 (3.5-5.1) mmol/L Chloride 100 104 105 (98-107) mmol/L Carbon Dioxide 16 L 15 L 15 L (22-30) mmol/L BUN 62 H 62 H (7-17) mg/dL Creatinine 2.52 H 2.42 H (0.52-1.04) mg/dL Glucose 403 H 240 H (74-99) mg/dL Calcium 8.8 8.4 (8.4-10.2) mg/dL AST (14-36) U/L ALT (4-34) U/L Alkaline Phosphatase (38-126) U/L Total Protein (6.3-8.2) g/dL Albumin (3.5-5.0) g/dL 10/19/20 10/19/20 Range/Units 00:10 03:45 Sodium 135 L 134 L (137-145) mmol/L Potassium 4.0 5.3 H (3.5-5.1) mmol/L Chloride 106 107 (98-107) mmol/L Carbon Dioxide 16 L 14 L (22-30) mmol/L BUN 64 H 64 H (7-17) mg/dL Creatinine 2.82 H 2.79 H (0.52-1.04) mg/dL Glucose 129 H 132 H (74-99) mg/dL Calcium 8.3 L 8.4 (8.4-10.2) mg/dL AST 85 H 136 H (14-36) U/L ALT 23 31 (4-34) U/L Alkaline Phosphatase 92 107 (38-126) U/L Total Protein 5.6 L 6.2 L (6.3-8.2) g/dL Albumin 2.7 L 3.0 L (3.5-5.0) g/dL Current Medications Generic Name Dose Route Start Last Admin Trade Name Freq PRN Reason Stop Dose Admin Acetaminophen 650 mg 10/18/20 11:42 10/19/20 04:54 Acetaminophen Tab 325 Mg Tab PO 650 mg Q6HR PRN Administration Mild Pain or Fever > 100.5 Aspirin 81 mg 10/19/20 09:00 10/19/20 09:19 Aspirin 81 Mg PO 81 mg DAILY [facility] Administration Atorvastatin Calcium 40 mg 10/19/20 09:00 10/19/20 09:19 Atorvastatin 40 Mg Tab PO 40 mg DAILY [facility] Administration Clopidogrel Bisulfate 75 mg 10/19/20 09:00 10/19/20 09:19 Clopidogrel 75 Mg Tab PO 75 mg DAILY [facility] Administration Ergocalciferol 1,250 mcg 10/18/20 12:00 10/18/20 14:59 Ergocalciferol 1,250 Mcg (50,000 Iu) Capsule PO 1,250 mcg ESQUEDA [facility] Administration Sodium Chloride 1,000 mls @ 100 mls/hr 10/18/20 08:15 10/19/20 01:53 Saline 0.9% IV Not Given .Q10H [facility] Insulin Human Regular 100 unit 101 mls @ 8.888 mls/hr 10/18/20 14:30 10/19/20 07:03 / Sodium Chloride IV 0.013 units/kg/hr .[id number] [facility] 1.155 mls/hr Titration Protocol 0.1 UNITS/KG/HR Potassium Chloride/Dextrose/Sod Cl 1,000 mls @ 100 mls/hr 10/18/20 16:00 10/19/20 09:19 D5%-1/2ns-Kcl 20 Meq/L Iv Solution IV 100 mls/hr .Q10H [facility] Administration Ceftriaxone Sodium 2 gm/ 50 mls @ 100 mls/hr 10/18/20 21:00 10/18/20 22:27 Sodium Chloride IVPB 100 mls/hr Q12HR [facility] Administration Norepinephrine Bitartrate 4 mg 254 mls @ 16.764 mls/hr 10/19/20 01:15 10/19/20 05:59 / Sodium Chloride IV 0.16 mcg/kg/min .[id number] [facility] 53.645 mls/hr Administration Protocol 0.05 MCG/KG/MIN Isosorbide Mononitrate 30 mg 10/19/20 09:00 Isosorbide Mononitrate Er 30 Mg Tab.Er.24h PO DAILY [facility] Levothyroxine Sodium 176 mcg 10/19/20 06:30 10/19/20 06:39 Levothyroxine 88 Mcg Tab PO Not Given 629 [facility] Metoprolol Succinate 100 mg 10/18/20 16:45 10/18/20 16:40 Metoprolol Succinate (Er) 100 Mg Tab.Er.24h PO 100 mg DAILY [facility] Administration Miscellaneous Information 1 each 10/18/20 14:30 Magnesium Replacement Protocol 1 Each Misc MISCELLANE DAILY PRN Per Protocol Protocol Miscellaneous Information 1 each 10/18/20 14:30 Potassium Replacement Protocol 1 Each Misc MISCELLANE DAILY PRN Per Protocol Naloxone HCl 0.2 mg 10/18/20 11:42 Naloxone 0.4 Mg/Ml 1 Ml Vial IV Q2M PRN Opioid Reversal Nitroglycerin 0.4 mg 10/18/20 09:13 Nitroglycerin Sl Tabs 0.4 Mg Tab SUBLINGUAL Q5M PRN Chest Pain Ondansetron HCl 4 mg 10/18/20 11:42 Ondansetron 4 Mg/2 Ml Vial IVP Q8HR PRN Nausea And Vomiting Intake and Output 10/18/20 10/19/20 10/19/20 22:59 06:59 14:59 Intake Total 149.612 3534.319 100 Output Total 60 45 5 Balance 501.026 0867.319 95 Intake: IV 420 800 100 Invasive Line 1 10 Invasive Line 2 10 Sodium Chloride 0.9% 1, 400 800 100 000 ml @ 100 mls/hr IV . Q10H [facility] Rx#:[id number] Intake, IV Titration 400.958 345.319 0 Amount D5-0.45% NaCl with KCl 100 20Meq/l 1,000 ml @ 100 mls/hr IV .Q10H [facility] Rx#: [id number] Insulin Regular 100 unit 50.958 18.517 0 In Sodium Chloride 0.9% 100 ml @ 0.1 UNITS/KG/HR 8.888 mls/hr IV .[id number] [facility] Rx#:[id number] Norepinephrine 4 mg In 176.802 Sodium Chloride 0.9% 250 ml @ 0.05 MCG/KG/MIN 16. 764 mls/hr IV .[id number] [facility] Rx#:[id number] Vancomycin 1,500 mg In 250 Sodium Chloride 0.9% 250 ml @ 125 mls/hr IVPB ONCE ONE Rx#:[id number] cefTRIAXone 2 gm In 50 Sodium Chloride 0.9% 50 ml @ 100 mls/hr IVPB Q12HR [facility] Rx#:[id number] metroNIDAZOLE-NS PMX 500 100 mg In Saline 1 100ml.bag @ 100 mls/hr IVPB Q8HR [facility] Rx#:[id number] Output: Urine 60 45 5 Other: Voiding Method Indwelling Catheter Indwelling Catheter Weight 95.3 kg 10/19/20 03:45 10/19/20 03:45
[2020-10-19] MEDS ORDERED: DAPTOMYCIN IVPB SCH (12:15)
[2020-10-19] MEDS ORDERED: SODIUM CHLORIDE 0.9% IVPB SCH (12:15)
[2020-10-19 12:16] LABS: Glucose,Whole Blood 176 mg/dL (75-99)
[2020-10-19 15:12] LABS: Glucose,Whole Blood 125 mg/dL (75-99)
[2020-10-19 15:14] LABS: ABG Base Excess -20.6 mmol/L; ABG Oxygen Saturation 98.2 % (94-97); ABG PCO2 29 mmHg (35-45); ABG PO2 185 mmHg (83-108); ABG TCO2 10 mmol/L (19-24)
[2020-10-19] MEDS ORDERED: propofoL 100 ML IV ONE (15:14)
[2020-10-19 15:16] LABS: ABG HCO3 9 mmol/L (21-25)
--- NOTE | 2020-10-19 15:22 | XR ---
EXAMINATION TYPE: XR chest 1V confirm line [facility] DATE OF EXAM: 10/19/2020 COMPARISON: Earlier same date HISTORY: Line placement TECHNIQUE: Single frontal view of the chest is obtained. FINDINGS: Interval placement of a left subclavian line. There is new left apical opacity and left barrera prahilar opacity. Left basilar pleural-parenchymal disease is unchanged. Cardiac silhouette is unchanged with postoperative findings and broken sternotomy wire. IMPRESSION: Interval placement of left subclavian line with left apical and left suprahilar opacity now seen with out definite pneumothorax.
[2020-10-19] MEDS: CISATRACURIUM 2 MG/ML 5 ML VIAL IV ONE ×2 (15:23→15:40)
[2020-10-19 15:25] LABS: Glucose,Whole Blood 132 mg/dL (75-99)
[2020-10-19 15:29] LABS: Albumin 3.2 g/dL (3.5-5.0); Calcium 8.8 mg/dL (8.4-10.2); Potassium 5.8 mmol/L (3.5-5.1); Total Bilirubin 2.4 mg/dL (0.2-1.3); Total Protein 6.3 g/dL (6.3-8.2)
[2020-10-19] MEDS: SODIUM BICARB 8.4% 50 ML SYR (1 MEQ/ML) ONE ×2 (15:30→15:31)
[2020-10-19] MEDS ORDERED: VANCOMYCIN IV PER PHARMACY 1 EACH MISC MISCELLANE PRN (15:33)
[2020-10-19] MEDS: SODIUM CHLORIDE 0.9% 1,000 ML IV ONE ×4 (15:37→16:23)
[2020-10-19] MEDS ORDERED: SODIUM CHLORIDE 0.9% 1,000 ML IV ONE ×4 (15:44→18:48)
--- NOTE | 2020-10-19 15:51 | XR ---
EXAMINATION TYPE: XR chest 1V DATE OF EXAM: 10/19/2020 COMPARISON: Earlier same date HISTORY: Tube placement TECHNIQUE: Single frontal view of the chest is obtained. FINDINGS: Interval placement of endotracheal tube in appropriate position and enteric tube which is subdiaphrag matic and traverses inferiorly off the image. Left subclavian line is in unchanged position. No significant change in left apical and left suprahilar opacities. Left basilar pleural-parenchymal disease is unchanged. Postoperative changes are again seen overlying the cardiomediastinal silhouette. Sternotomy wires wit h broken wire inferiorly are again seen. IMPRESSION: Interval placement of endotracheal and enteric tubes, as described. Otherwise, no significant change since the prior exam.
--- NOTE | 2020-10-19 15:58 | P.PCN ---
Date of Procedure: 10/19/20 Preoperative Diagnosis: Acute septic shock Postoperative Diagnosis: Acute septic shock Procedure(s) Performed: Intubation, insertion of a triple-lumen catheter Anesthesia: local Surgeon: Bhanu Phillip Pathology: other Condition: critical Disposition: ICU Operative Findings: Intubation Indication: Respiratory compromise. A time-out was completed verifying correct patient, procedure, site, positioning, and implant(s) or special equipment if applicable. The patient was positioned appropriately and a 8 endotracheal tube was placed under direct laryngoscopy. The tube was anchored at 22 cm at the teeth. Correct placement was confirmed by presence of bilateral breath sounds without air sounds in the abdomen on auscultation. An end-tidal CO2 monitor was also used to confirm tracheal placement of the ET tube. A chest x-ray was ordered to assess for pneumothorax and verify endotracheal tube placement. The patient tolerated the procedure well and there were no complications. Central line Indication: Hemodynamic monitoring/Intravenous access. A time-out was completed verifying correct patient, procedure, site, positioning, and implant(s) or special equipment if applicable. The patient was placed in a dependent position appropriate for central line placement based on the vein to be cannulated. The patients left shoulder was prepped and draped in sterile fashion. 1% Lidocaine was used to anesthetize the surrounding skin area. A triple lumen 9F Cordis catheter was introduced into the subclavian vein using Seldinger technique. The catheter was threaded smoothly over the guide wire and appropriate blood return was obtained. Each lumen of the catheter was evacuated of air and flushed with sterile saline. The catheter was then sutured in place to the skin and a sterile dressing applied. Perfusion to the extremity distal to the point of catheter insertion was checked and found to be adequate. The patient tolerated the procedure well and there were no complications.
[2020-10-19 16:03] LABS: Glucose,Whole Blood 126 mg/dL (75-99)
[2020-10-19 16:11] LABS: ABG Base Excess -11.6 mmol/L; ABG HCO3 14 mmol/L (21-25); ABG Oxygen Saturation 99.7 % (94-97); ABG PCO2 24 mmHg (35-45); ABG PH 7.37 (7.35-7.45); ABG PO2 >400 mmHg (83-108); ABG TCO2 15 mmol/L (19-24)
[2020-10-19] MEDS: INSULIN REGULAR 100 UNIT in SODIUM CHLORIDE 0.9% 100 ML IV SCH ×3 (16:16→20:59)
[2020-10-19] MEDS: NOREPINEPHRINE 8 MG in SODIUM CHLORIDE 0.9% 250 ML IV SCH ×2 (16:20→21:07)
[2020-10-19 16:26] LABS: Basophils % (A) 0 %; Eosinophils % (A) 0 %; HCT 40.1 % (34.0-46.0); HGB 12.6 gm/dL (11.4-16.0); Hypochromasia Slight; Lymphocytes # (A) 0.4 k/uL (1.0-4.8); Lymphocytes % (A) 4 %; MCH 30.8 pg (25.0-35.0); MCHC 31.3 g/dL (31.0-37.0); MCV 98.4 fL (80.0-100.0); Mean Platelet Volume 10.2; Monocytes # (A) 0.3 k/uL (0-1.0); Monocytes % (A) 3 %; Neutrophils # (A) 7.9 k/uL (1.3-7.7); Neutrophils % (A) 91 %; Platelet Count 110 k/uL (150-450); RBC 4.07 m/uL (3.80-5.40); RDW 14.9 % (11.5-15.5); WBC 8.7 k/uL (3.8-10.6)
[2020-10-19] MEDS ORDERED: DEXTROSE 50% SYRINGE 50 ML IVP STA (16:40)
[2020-10-19] MEDS ORDERED: FUROSEMIDE 10 MG/ML 10 ML VIAL IV STA (16:44)
[2020-10-19] MEDS ORDERED: INSULIN REGULAR 100 UNIT/ML VIAL (IV) IV ONE (16:44)
[2020-10-19] MEDS ORDERED: DEXTROSE 5% IN WATER 1,000 ML with SODIUM BICARB (1 MEQ/ML) 150 ML IV ONE (16:45)
[2020-10-19 16:46] LABS: Glucose,Whole Blood 125 mg/dL (75-99)
[2020-10-19 17:27] LABS: Glucose,Whole Blood 129 mg/dL (75-99)
[2020-10-19] MEDS ORDERED: SODIUM BICARB 8.4% 50 ML SYR (1 MEQ/ML) IV STA (17:39)
[2020-10-19 17:56] LABS: Glucose,Whole Blood 155 mg/dL (75-99)
[2020-10-19 18:59] LABS: Glucose,Whole Blood 142 mg/dL (75-99)
[2020-10-19] MEDS ORDERED: metroNIDAZOLE-NS PMX 500 MG in SALINE 1 100ML.BAG IVPB SCH (20:08)
--- NOTE | 2020-10-19 20:17 | CONS ---
CONSULTATION DATE OF SERVICE: 10/19/2020 REASON FOR CONSULTATION: Bacteremia. HISTORY OF PRESENT ILLNESS: The patient is a 75-year-old female with a past medical history significant for lung cancer diagnosed in 2018, however, did have a recent negative CT. Also history of diabetes mellitus. The patient was brought into the ER at [facility] yesterday for evaluation of generalized weakness, not feeling well and apparently did have a low-grade fever. The patient denies having any headache or URI symptoms. Denies having any chest pain. No shortness of breath. She did have occasional cough. No sputum production. No abdominal pain or any diarrhea. With these symptoms, the patient has been evaluated by the ER physician. On arrival to the ER, the patient was afebrile. However did spike a fever of 102.7 Fahrenheit last evening. The patient has been tachycardic, tachypneic and hypoxic. The patient on admission did have white count of 11.7. Repeat is 14.8. The patient did have elevated BUN and creatinine and lactic acid was elevated as well. The patient did have a CT of abdomen and pelvis which shows evidence of bilateral pleural effusion. No change from previous. No abnormalities in the abdomen and pelvis on the CT. The patient did have a UA that was mildly positive. Blood culture subsequently came back positive with Gram- positive cocci. She was treated with Rocephin. Vancomycin was added. Infectious Disease was consulted for further management of antibiotic therapy. REVIEW OF SYSTEMS: Positive points have been mentioned in HPI. Rest of systems negative. PAST MEDICAL HISTORY: Coronary artery disease, history of hyperlipidemia, hypertension, osteoarthritis, hypothyroidism, non-small cell left lung cancer. PAST SURGICAL HISTORY: Adenoidectomy, coronary artery bypass grafting, heart catheterization with stent, tonsillectomy, left carotid endarterectomy. SOCIAL HISTORY: Remote history of smoking. No drinking or drug use. FAMILY HISTORY: Father with history of prostate cancer. Mother history of lung disease. ALLERGIES: PENICILLIN. MEDICATIONS: The patient is currently on Tylenol, aspirin, Lipitor, Rocephin 2 grams daily. She is on Plavix, Imdur, Synthroid, Toprol-XL, she did receive a dose of vancomycin. PHYSICAL EXAMINATION: Blood pressure 142/80 with a pulse of 72, temperature 93, T-max 102.5. General description is an elderly female lying in no distress. No tachypnea or accessory muscles of respiration use. HEENT: Examination shows no pallor or scleral icterus. Oral mucous membranes dry. NECK: Trachea midline. LUNGS unlabored breathing, decreased breath sounds in the base, with no wheeze. HEART S1, S2. Regular rate and rhythm. ABDOMEN soft, no tenderness. No guarding. No rigidity. EXTREMITIES: Some trace edema of the feet. SKIN: No rash or mass palpable. NEUROLOGICAL: Patient is awake, alert, oriented x3. Mood and affect normal. LABS: Hemoglobin is 12.8, white count 8.7. Admission white count 14.8 with a BUN of 54, creatinine is 2.2. Electrolytes have been normal. Lactic acid is 2.4. AST of 85, blood culture with MSSA. DIAGNOSTIC IMPRESSION: 1. Patient admitted to the hospital with weakness and respiratory symptoms. The patient did have now evidence of MSSA bacteremia, source possibly pulmonary as there is no evidence of any acute abnormality on CT of abdomen and pelvis. Patient do not have any cellulitis and UA was mildly positive. 2. Patient did have renal insufficiency and high risk of nephrotoxicity from vancomycin. 3. PENICILLIN ALLERGY. PLAN: 1. Discontinue the vancomycin and Rocephin. 2. Start the patient on cefazolin 2 g q.12h, dose adjusted with kidney function. 3. Blood cultures will be repeated to document clearance of bacteremia. 4. We will follow on clinical condition and further adjust medication if needed. Thank you for this consultation. Will follow this patient along with you. MMODL / IJN: [id number] / LOUIE
[2020-10-19] MEDS: CHLORHEXIDINE GLUCONATE 15 ML CUP MUCOUS MEM SCH (20:20)
[2020-10-19 20:23] LABS: Glucose,Whole Blood 118 mg/dL (75-99)
[2020-10-19 21:05] LABS: Glucose,Whole Blood 146 mg/dL (75-99)
[2020-10-19 22:39] LABS: Calcium 6.8 mg/dL (8.4-10.2); Potassium 3.5 mmol/L (3.5-5.1)
[2020-10-19 23:15] LABS: Glucose,Whole Blood 183 mg/dL (75-99)
[2020-10-20 00:12] LABS: Glucose,Whole Blood 182 mg/dL (75-99)
[2020-10-20 00:58] LABS: Glucose,Whole Blood 215 mg/dL (75-99)
[2020-10-20 01:07] LABS: Glucose,Whole Blood 238 mg/dL (75-99)
[2020-10-20 02:21] LABS: Glucose,Whole Blood 210 mg/dL (75-99)
[2020-10-20 03:15] LABS: Glucose,Whole Blood 191 mg/dL (75-99)
[2020-10-20 04:05] LABS: Glucose,Whole Blood 174 mg/dL (75-99)
[2020-10-20 04:19] LABS: Basophils # (A) 0.1 k/uL (0-0.2); Basophils % (A) 1 %; Eosinophils % (A) 0 %; HCT 36.1 % (34.0-46.0); HGB 12.3 gm/dL (11.4-16.0); Lymphocytes # (A) 0.5 k/uL (1.0-4.8); Lymphocytes % (A) 5 %; MCH 32.1 pg (25.0-35.0); MCHC 33.9 g/dL (31.0-37.0); MCV 94.6 fL (80.0-100.0); Mean Platelet Volume 10.1; Monocytes # (A) 0.4 k/uL (0-1.0); Monocytes % (A) 4 %; Neutrophils # (A) 8.5 k/uL (1.3-7.7); Neutrophils % (A) 88 %; Platelet Count 102 k/uL (150-450); RBC 3.82 m/uL (3.80-5.40); RDW 14.7 % (11.5-15.5); WBC 9.6 k/uL (3.8-10.6)
[2020-10-20 05:06] LABS: Glucose,Whole Blood 161 mg/dL (75-99)
[2020-10-20 05:07] LABS: Calcium 7.1 mg/dL (8.4-10.2); Magnesium 1.7 mg/dL (1.6-2.3); Potassium 3.1 mmol/L (3.5-5.1); Total Bilirubin 1.5 mg/dL (0.2-1.3); Total Protein 4.4 g/dL (6.3-8.2)
[2020-10-20 05:12] LABS: Vancomycin,Random 20.3 ug/mL
[2020-10-20 05:22] LABS: ABG HCO3 18 mmol/L (21-25); ABG Oxygen Saturation 99.2 % (94-97); ABG PCO2 20 mmHg (35-45); ABG PH 7.55 (7.35-7.45); ABG PO2 158 mmHg (83-108); ABG TCO2 18 mmol/L (19-24); Allen Test Performed? Yes
[2020-10-20] MEDS: POTASSIUM BICARBONATE/CIT AC 20 MEQ TABLET.EFF NG-TUBE SCH ×2 (05:57→06:52)
[2020-10-20 06:07] LABS: Glucose,Whole Blood 146 mg/dL (75-99)
[2020-10-20] MEDS: LEVOTHYROXINE 88 MCG TAB PO SCH (06:37)
--- NOTE | 2020-10-20 07:00 | XR ---
EXAMINATION TYPE: XR chest 1V portable DATE OF EXAM: 10/20/2020 COMPARISON: 10/19/2020 HISTORY: Tube placement TECHNIQUE: Single frontal view of the chest is obtained. FINDINGS: Lines and tubes are in unchanged positions. Interval improvement in aeration of the left upper lung zone and left paramediastinal region. There i s unchanged elevation of the left hemidiaphragm. Postoperative changes overlying the cardiac silhouette with broken sternotomy wire represent demonstr ated. IMPRESSION: Improved aeration of the left upper lung zone and paramediastinal region. Otherwise, no significant change.
[2020-10-20 07:02] LABS: Glucose,Whole Blood 154 mg/dL (75-99)
[2020-10-20 07:36] LABS: Glucose,Whole Blood 151 mg/dL (75-99)
[2020-10-20] MEDS ORDERED: INSULIN ASPART (NovoLOG) 100 UNIT/ML VIAL SQ SCH (08:00)
[2020-10-20] MEDS: CHLORHEXIDINE GLUCONATE 15 ML CUP MUCOUS MEM SCH ×2 (08:01→21:04)
[2020-10-20] MEDS: CLOPIDOGREL 75 MG TAB PO SCH (08:01)
[2020-10-20] MEDS: ASPIRIN 81 MG PO SCH (08:03)
[2020-10-20] MEDS: INSULIN DETEMIR (LEVEMIR) 100 UNIT/ML SYR SQ SCH (08:09)
--- NOTE | 2020-10-20 09:27 | P.PN ---
Subjective Progress Note Date: 10/20/20 75-year-old female patient known history of non-small cell lung cancer locally advanced stage III be treated with a combination of chemoradiation therapy with favorable response. The patient was considered for surgical resection and was able to be nonsurgical due to borderline lung function and location of the tumor. The patient had an FEV1 of 60% of predicted. The patient was started with the immunotherapy for a while. She also has history of CHF with an ejection fraction of 3035% with global hypokinesis, CAD with previous bypass surgery in 2005 and previous non-STEMI and diabetes mellitus. The patient came into the emergency department yesterday because of altered mental status and body aches and pains at home. The patient was initially tachycardic with a heart rate of 117. The blood work showed a white cell count of 11.7, sodium was 131 with a potassium level of 5.3 and a serum bicarb of 14 with anion gap of 17. BUN was 55 with a creatinine of 2.3. Glucose was 47. Lactic acid level was 3.8 and a magnesium of 1.8 and troponin of 0.9 initially and it maxed out at 1.2 suggestive an acute non-STEMI.. UA was negative. COVID-19 testing was negative. The lactic acid level was as high as 7.5. Chest x-ray was consistent with a left suprahilar mass and a small left-sided pleural effusion. The patient was running a temperature of 99.5. She was complaining of shortness of breath. Her chest x-ray also showed a moderate-sized left-sided pleural effusion along with some volume loss in the left suprahilar mass. The patient has not received any treatment regarding her malignancy for the past few years. Most recent PET/CT from 08/21/2020 showed no areas of new metabolic activity to suggest recurrent tumor. There was small to moderate-sized left-sided pleural effusion that had shown some increased interval size compared to earlier PET/CT. This morning, the patient is calm and comfortable. No signs of any major respiratory distress. She remained in 100% nonrebreather facemask and her pulse ox is in the order of 95-99%. She didn't use the BiPAP overnight depression of 12/6 with an FiO2 of 50%. She was given a total of 4 L of IV fluids overnight. Urine output in order of 10 mL an hour. CAT scan of the abdomen and pelvis was completed and showed lateral pleural effusions along with cardiomegaly. No acute intra-abdominal pathology. Her morning INR is at 4.9. She is on insulin drip running at 1.12 units hour. After being given 4 L of IV fluid, the patient continued to be running some low blood pressure. She is also on norepinephrine infusion this morning at a dose of 0.16 mcg/kg per minute. Most recent blood pressure is 120/51. She has an arterial radial line on the right. No tachycardia. She is currently in normal sinus rhythm. 10/20/2020, the patient is being seen in follow-up in the intensive care unit. Events from yesterday were noted. After my morning evaluation, I reevaluated this patient and ICU at around 3:00 in the afternoon. The patient was becoming progressively more septic. She was becoming progressively more acidotic, tachypneic, tachycardic, hypotensive, urine output was low and the patient was very much cold and clammy. Her lactic acid level was also on the rise. Based on that, I inserted a triple lumen catheter and was started fluid resuscitation. We also intubated the patient with on a mechanical ventilator. The patient's subsequent income tax return preparer to have positive blood cultures with MSSA. IDs aware and the patient was started on IV cefazolin. 2 cultures of the blood are positive. This morning, the patient is sedated with propofol and probably was running at 30 mcg/kg per minute and the patient is calm and comfortable. She is intubated on a mechanical ventilator. She is an assist-control mode at the rate of 32 with a tidal volume of 500 and FiO2 of 35% with a PEEP of 5. Chest x-ray showing some atelectatic changes/effusion the left lung base. Right lung essentially clear. ET tube is in a good location and the patient has a triple lumen catheter in the left subclavian. No significant orotracheal secretions. She is quite success with the mechanical ventilator. She is able to generate a minute ventilation of 16.3 L with a peak airway pressure of around 26. Hemodynamically, the patient was given a total of 6 L of IV fluid bolus. She was also on a bicarb infusion initially at a dose of 100 mL an hour and currently she is at 50 mL an hour. Urine output has improved and the patient is producing urine output in the order of 75 mL an hour. Also, she remains on pressors. Norepinephrine infusion is running at 0.05 mcg/kg per minute. Insulin drip is also at 1.5 units an hour. On her labs, acid peaked at 10 and the most recent lactic acid level is at 3.4. The serum bicarb from this morning is at 16. Her BUN is at 64 with a creatinine of 2.4. Creatinine peaked at 3.46 and this is from yesterday noontime. She does have a component of shock liver and the LFTs are also abnormal with an AST of 1367 and ALP of 284. Bilirubin is at 1.5. The white cell count today is at 9.6 with a hemoglobin of 12.3. Platelet count has dropped to 102 pro-calcitonin level is up to 16.1. Serum cortisol was at 95 and no hydrocortisone was given. Troponins were also positive and a peaked at 1.2. Cardiac cardiac rhythm is atrial fibrillation with a controlled rate. Objective - Vital Signs Vital signs: Vital Signs Temp 97.9 F 10/20/20 04:00 Pulse 63 10/20/20 07:00 Resp 32 H 10/20/20 07:00 BP 91/62 10/19/20 17:00 Pulse Ox 100 10/20/20 07:00 Intake & Output 10/19/20 10/20/20 10/20/20 18:59 06:59 18:59 Intake Total 4736.071 1979.805 120 Output Total 70 855 50 Balance 4666.071 1124.805 70 Weight 95.3 kg 105.4 kg Intake: IV 4500 220 20 0.9 @20mL/hr 220 20 D5W 20 K 100 0 Sodium Chloride 0.9% 1, 1400 000 ml @ 100 mls/hr IV . Q10H [facility] Rx#:[id number] Sodium Chloride 0.9% 1, 3000 000 ml @ 999 mls/hr IV . Q1H1M [facility] Rx#:[id number] Intake, IV Titration 951.106 8138.805 100 Amount Dextrose 5% in Water 1, 1100 100 000 ml @ 100 mls/hr IV . [id number] ONE with Sodium Bicarb (1 Meq/ml) 150 ml Rx#:[id number] Insulin Regular 100 unit 12.463 21.927 In Sodium Chloride 0.9% 100 ml @ 0.1 UNITS/KG/HR 8.888 mls/hr IV .[id number] [facility] Rx#:[id number] Norepinephrine 8 mg In 191.015 83.873 Sodium Chloride 0.9% 250 ml @ 0.25 MCG/KG/MIN 46. 101 mls/hr IV .Q5H36M [facility] Rx#:[id number] Vancomycin 1,500 mg In 250 Sodium Chloride 0.9% 250 ml @ 125 mls/hr IVPB ONCE [facility] Rx#:[id number] ceFAZolin 2 gm In Sodium 50 Chloride 0.9% 50 ml @ 100 mls/hr IVPB Q12HR [facility] Rx #:[id number] propofoL 1,000 mg In 32.593 254.005 Empty Bag 1 bag @ Titrate IV .Q0M [facility] Rx#: [id number] Output: Urine 70 855 50 Other: Voiding Method Indwelling Catheter Indwelling Catheter ABP, PAP, CO, CI - Last Documented Arterial Blood Pressure 94/49 - Exam Gen. appearance, comfortable no acute distress.appearance, comfortable, sedated on a mechanical ventilator. Orogastric and orotracheal tube are both in place. Head exam was generally normal. There was no scleral icterus or corneal arcus. Mucous membranes were moist. Neck was supple and without jugular venous distension, thyromegaly, or carotid bruits. Carotids were easily palpable bilaterally. There was no adenopathy. Lungs were clear to auscultation and percussion, and with normal diaphragmatic excursion. No wheezes or rales were noted. Cardiac exam revealed the PMI to be normally situated and sized. The rhythm was regular and no extrasystoles were noted during several minutes of auscultation. The first and second heart sounds were normal and physiologic splitting of the second heart sound was noted. There were no murmurs, rubs, clicks, or gallops. Abdominal exam revealed normal bowel sounds. The abdomen was soft, non-tender, and without masses, organomegaly, or appreciable enlargement of the abdominal aorta. Examination of the extremities revealed easily palpable radial, femoral and pedal pulses. There was no cyanosis, clubbing or edema. Examination of the skin revealed no evidence of significant rashes, suspicious appearing nevi or other concerning lesions. Neurologically, the patient is sedated - Labs CBC & Chem 7: 10/20/20 04:00 10/20/20 04:00 Labs: Abnormal Lab Results - Last 24 Hours (Table) 10/19/20 10/19/20 10/19/20 Range/Units 00:10 03:45 09:39 Plt Count (150-450) k/uL Neutrophils # (1.3-7.7) k/uL Lymphocytes # (1.0-4.8) k/uL ABG pH (7.35-7.45) ABG pCO2 (35-45) mmHg ABG pO2 (83-108) mmHg ABG HCO3 (21-25) mmol/L ABG Total CO2 (19-24) mmol/L ABG O2 Saturation (94-97) % ABG Lactic Acid (0.5-1.6) mmol/L Sodium 133 L (137-145) mmol/L Potassium 5.3 H (3.5-5.1) mmol/L Chloride (98-107) mmol/L Carbon Dioxide 14 L (22-30) mmol/L BUN 65 H (7-17) mg/dL Creatinine 3.01 H (0.52-1.04) mg/dL Glucose 216 H (74-99) mg/dL POC Glucose (mg/dL) (75-99) mg/dL Plasma Lactic Acid Walt (0.7-2.0) mmol/L Calcium 8.0 L (8.4-10.2) mg/dL Total Bilirubin (0.2-1.3) mg/dL AST (14-36) U/L ALT (4-34) U/L Alkaline Phosphatase (38-126) U/L Total Protein (6.3-8.2) g/dL Albumin (3.5-5.0) g/dL HDL Cholesterol 19.0 L (40.0-60.0) mg/dL Procalcitonin 16.10 H (0.02-0.09) ng/mL 10/19/20 10/19/20 10/19/20 Range/Units 10:00 11:08 12:14 Plt Count (150-450) k/uL Neutrophils # (1.3-7.7) k/uL Lymphocytes # (1.0-4.8) k/uL ABG pH (7.35-7.45) ABG pCO2 (35-45) mmHg ABG pO2 (83-108) mmHg ABG HCO3 (21-25) mmol/L ABG Total CO2 (19-24) mmol/L ABG O2 Saturation (94-97) % ABG Lactic Acid (0.5-1.6) mmol/L Sodium (137-145) mmol/L Potassium (3.5-5.1) mmol/L Chloride (98-107) mmol/L Carbon Dioxide (22-30) mmol/L BUN (7-17) mg/dL Creatinine (0.52-1.04) mg/dL Glucose (74-99) mg/dL POC Glucose (mg/dL) 188 H 176 H (75-99) mg/dL Plasma Lactic Acid Walt 3.0 H* (0.7-2.0) mmol/L Calcium (8.4-10.2) mg/dL Total Bilirubin (0.2-1.3) mg/dL AST (14-36) U/L ALT (4-34) U/L Alkaline Phosphatase (38-126) U/L Total Protein (6.3-8.2) g/dL Albumin (3.5-5.0) g/dL HDL Cholesterol (40.0-60.0) mg/dL Procalcitonin (0.02-0.09) ng/mL 10/19/20 10/19/20 10/19/20 Range/Units 15:07 15:10 15:12 Plt Count (150-450) k/uL Neutrophils # (1.3-7.7) k/uL Lymphocytes # (1.0-4.8) k/uL ABG pH 7.10 L* (7.35-7.45) ABG pCO2 29 L (35-45) mmHg ABG pO2 185 H (83-108) mmHg ABG HCO3 9 L* (21-25) mmol/L ABG Total CO2 10 L (19-24) mmol/L ABG O2 Saturation 98.2 H (94-97) % ABG Lactic Acid (0.5-1.6) mmol/L Sodium 136 L (137-145) mmol/L Potassium 5.8 H (3.5-5.1) mmol/L Chloride 108 H (98-107) mmol/L Carbon Dioxide 7 L* (22-30) mmol/L BUN 63 H (7-17) mg/dL Creatinine 3.46 H (0.52-1.04) mg/dL Glucose 145 H (74-99) mg/dL POC Glucose (mg/dL) 125 H (75-99) mg/dL Plasma Lactic Acid Walt (0.7-2.0) mmol/L Calcium (8.4-10.2) mg/dL Total Bilirubin 2.4 H (0.2-1.3) mg/dL AST 1965 H (14-36) U/L ALT 316 H (4-34) U/L Alkaline Phosphatase 132 H (38-126) U/L Total Protein (6.3-8.2) g/dL Albumin 3.2 L (3.5-5.0) g/dL HDL Cholesterol (40.0-60.0) mg/dL Procalcitonin (0.02-0.09) ng/mL 10/19/20 10/19/20 10/19/20 Range/Units 15:23 15:50 16:01 Plt Count 110 L (150-450) k/uL Neutrophils # 7.9 H (1.3-7.7) k/uL Lymphocytes # 0.4 L (1.0-4.8) k/uL ABG pH (7.35-7.45) ABG pCO2 (35-45) mmHg ABG pO2 (83-108) mmHg ABG HCO3 (21-25) mmol/L ABG Total CO2 (19-24) mmol/L ABG O2 Saturation (94-97) % ABG Lactic Acid (0.5-1.6) mmol/L Sodium (137-145) mmol/L Potassium (3.5-5.1) mmol/L Chloride (98-107) mmol/L Carbon Dioxide (22-30) mmol/L BUN (7-17) mg/dL Creatinine (0.52-1.04) mg/dL Glucose (74-99) mg/dL POC Glucose (mg/dL) 132 H 126 H (75-99) mg/dL Plasma Lactic Acid Walt (0.7-2.0) mmol/L Calcium (8.4-10.2) mg/dL Total Bilirubin (0.2-1.3) mg/dL AST (14-36) U/L ALT (4-34) U/L Alkaline Phosphatase (38-126) U/L Total Protein (6.3-8.2) g/dL Albumin (3.5-5.0) g/dL HDL Cholesterol (40.0-60.0) mg/dL Procalcitonin (0.02-0.09) ng/mL 10/19/20 10/19/20 10/19/20 Range/Units 16:08 16:35 17:25 Plt Count (150-450) k/uL Neutrophils # (1.3-7.7) k/uL Lymphocytes # (1.0-4.8) k/uL ABG pH (7.35-7.45) ABG pCO2 24 L (35-45) mmHg ABG pO2 >400 H (83-108) mmHg ABG HCO3 14 L (21-25) mmol/L ABG Total CO2 15 L (19-24) mmol/L ABG O2 Saturation 99.7 H (94-97) % ABG Lactic Acid (0.5-1.6) mmol/L Sodium (137-145) mmol/L Potassium (3.5-5.1) mmol/L Chloride (98-107) mmol/L Carbon Dioxide (22-30) mmol/L BUN (7-17) mg/dL Creatinine (0.52-1.04) mg/dL Glucose (74-99) mg/dL POC Glucose (mg/dL) 125 H 129 H (75-99) mg/dL Plasma Lactic Acid Walt (0.7-2.0) mmol/L Calcium (8.4-10.2) mg/dL Total Bilirubin (0.2-1.3) mg/dL AST (14-36) U/L ALT (4-34) U/L Alkaline Phosphatase (38-126) U/L Total Protein (6.3-8.2) g/dL Albumin (3.5-5.0) g/dL HDL Cholesterol (40.0-60.0) mg/dL Procalcitonin (0.02-0.09) ng/mL 10/19/20 10/19/20 10/19/20 Range/Units 17:42 17:55 18:57 Plt Count (150-450) k/uL Neutrophils # (1.3-7.7) k/uL Lymphocytes # (1.0-4.8) k/uL ABG pH (7.35-7.45) ABG pCO2 (35-45) mmHg ABG pO2 (83-108) mmHg ABG HCO3 (21-25) mmol/L ABG Total CO2 (19-24) mmol/L ABG O2 Saturation (94-97) % ABG Lactic Acid 10.5 H* (0.5-1.6) mmol/L Sodium (137-145) mmol/L Potassium (3.5-5.1) mmol/L Chloride (98-107) mmol/L Carbon Dioxide (22-30) mmol/L BUN (7-17) mg/dL Creatinine (0.52-1.04) mg/dL Glucose (74-99) mg/dL POC Glucose (mg/dL) 155 H 142 H (75-99) mg/dL Plasma Lactic Acid Walt (0.7-2.0) mmol/L Calcium (8.4-10.2) mg/dL Total Bilirubin (0.2-1.3) mg/dL AST (14-36) U/L ALT (4-34) U/L Alkaline Phosphatase (38-126) U/L Total Protein (6.3-8.2) g/dL Albumin (3.5-5.0) g/dL HDL Cholesterol (40.0-60.0) mg/dL Procalcitonin (0.02-0.09) ng/mL 10/19/20 10/19/20 10/19/20 Range/Units 20:00 20:00 20:12 Plt Count (150-450) k/uL Neutrophils # (1.3-7.7) k/uL Lymphocytes # (1.0-4.8) k/uL ABG pH (7.35-7.45) ABG pCO2 (35-45) mmHg ABG pO2 (83-108) mmHg ABG HCO3 (21-25) mmol/L ABG Total CO2 (19-24) mmol/L ABG O2 Saturation (94-97) % ABG Lactic Acid (0.5-1.6) mmol/L Sodium (137-145) mmol/L Potassium (3.5-5.1) mmol/L Chloride 112 H (98-107) mmol/L Carbon Dioxide 13 L (22-30) mmol/L BUN 59 H (7-17) mg/dL Creatinine 2.79 H (0.52-1.04) mg/dL Glucose 148 H (74-99) mg/dL POC Glucose (mg/dL) 118 H (75-99) mg/dL Plasma Lactic Acid Walt 6.0 H* (0.7-2.0) mmol/L Calcium 6.8 L (8.4-10.2) mg/dL Total Bilirubin (0.2-1.3) mg/dL AST (14-36) U/L ALT (4-34) U/L Alkaline Phosphatase (38-126) U/L Total Protein (6.3-8.2) g/dL Albumin (3.5-5.0) g/dL HDL Cholesterol (40.0-60.0) mg/dL Procalcitonin (0.02-0.09) ng/mL 10/19/20 10/19/20 10/20/20 Range/Units 21:03 23:03 00:11 Plt Count (150-450) k/uL Neutrophils # (1.3-7.7) k/uL Lymphocytes # (1.0-4.8) k/uL ABG pH (7.35-7.45) ABG pCO2 (35-45) mmHg ABG pO2 (83-108) mmHg ABG HCO3 (21-25) mmol/L ABG Total CO2 (19-24) mmol/L ABG O2 Saturation (94-97) % ABG Lactic Acid (0.5-1.6) mmol/L Sodium (137-145) mmol/L Potassium (3.5-5.1) mmol/L Chloride (98-107) mmol/L Carbon Dioxide (22-30) mmol/L BUN (7-17) mg/dL Creatinine (0.52-1.04) mg/dL Glucose (74-99) mg/dL POC Glucose (mg/dL) 146 H 183 H 182 H (75-99) mg/dL Plasma Lactic Acid Walt (0.7-2.0) mmol/L Calcium (8.4-10.2) mg/dL Total Bilirubin (0.2-1.3) mg/dL AST (14-36) U/L ALT (4-34) U/L Alkaline Phosphatase (38-126) U/L Total Protein (6.3-8.2) g/dL Albumin (3.5-5.0) g/dL HDL Cholesterol (40.0-60.0) mg/dL Procalcitonin (0.02-0.09) ng/mL 10/20/20 10/20/20 10/20/20 Range/Units 00:55 00:56 01:06 Plt Count (150-450) k/uL Neutrophils # (1.3-7.7) k/uL Lymphocytes # (1.0-4.8) k/uL ABG pH (7.35-7.45) ABG pCO2 (35-45) mmHg ABG pO2 (83-108) mmHg ABG HCO3 (21-25) mmol/L ABG Total CO2 (19-24) mmol/L ABG O2 Saturation (94-97) % ABG Lactic Acid (0.5-1.6) mmol/L Sodium (137-145) mmol/L Potassium (3.5-5.1) mmol/L Chloride (98-107) mmol/L Carbon Dioxide (22-30) mmol/L BUN (7-17) mg/dL Creatinine (0.52-1.04) mg/dL Glucose (74-99) mg/dL POC Glucose (mg/dL) 215 H 238 H (75-99) mg/dL Plasma Lactic Acid Walt 3.3 H* (0.7-2.0) mmol/L Calcium (8.4-10.2) mg/dL Total Bilirubin (0.2-1.3) mg/dL AST (14-36) U/L ALT (4-34) U/L Alkaline Phosphatase (38-126) U/L Total Protein (6.3-8.2) g/dL Albumin (3.5-5.0) g/dL HDL Cholesterol (40.0-60.0) mg/dL Procalcitonin (0.02-0.09) ng/mL 10/20/20 10/20/20 10/20/20 Range/Units 02:19 03:12 04:00 Plt Count (150-450) k/uL Neutrophils # (1.3-7.7) k/uL Lymphocytes # (1.0-4.8) k/uL ABG pH (7.35-7.45) ABG pCO2 (35-45) mmHg ABG pO2 (83-108) mmHg ABG HCO3 (21-25) mmol/L ABG Total CO2 (19-24) mmol/L ABG O2 Saturation (94-97) % ABG Lactic Acid (0.5-1.6) mmol/L Sodium (137-145) mmol/L Potassium 3.1 L (3.5-5.1) mmol/L Chloride 111 H (98-107) mmol/L Carbon Dioxide 16 L (22-30) mmol/L BUN 64 H (7-17) mg/dL Creatinine 2.43 H (0.52-1.04) mg/dL Glucose 183 H (74-99) mg/dL POC Glucose (mg/dL) 210 H 191 H (75-99) mg/dL Plasma Lactic Acid Walt (0.7-2.0) mmol/L Calcium 7.1 L (8.4-10.2) mg/dL Total Bilirubin 1.5 H (0.2-1.3) mg/dL AST 1367 H (14-36) U/L ALT 284 H (4-34) U/L Alkaline Phosphatase (38-126) U/L Total Protein 4.4 L (6.3-8.2) g/dL Albumin 2.0 L (3.5-5.0) g/dL HDL Cholesterol (40.0-60.0) mg/dL Procalcitonin (0.02-0.09) ng/mL 10/20/20 10/20/20 10/20/20 Range/Units 04:00 04:00 04:03 Plt Count 102 L (150-450) k/uL Neutrophils # 8.5 H (1.3-7.7) k/uL Lymphocytes # 0.5 L (1.0-4.8) k/uL ABG pH (7.35-7.45) ABG pCO2 (35-45) mmHg ABG pO2 (83-108) mmHg ABG HCO3 (21-25) mmol/L ABG Total CO2 (19-24) mmol/L ABG O2 Saturation (94-97) % ABG Lactic Acid (0.5-1.6) mmol/L Sodium (137-145) mmol/L Potassium (3.5-5.1) mmol/L Chloride (98-107) mmol/L Carbon Dioxide (22-30) mmol/L BUN (7-17) mg/dL Creatinine (0.52-1.04) mg/dL Glucose (74-99) mg/dL POC Glucose (mg/dL) 174 H (75-99) mg/dL Plasma Lactic Acid Walt 3.4 H* (0.7-2.0) mmol/L Calcium (8.4-10.2) mg/dL Total Bilirubin (0.2-1.3) mg/dL AST (14-36) U/L ALT (4-34) U/L Alkaline Phosphatase (38-126) U/L Total Protein (6.3-8.2) g/dL Albumin (3.5-5.0) g/dL HDL Cholesterol (40.0-60.0) mg/dL Procalcitonin (0.02-0.09) ng/mL 10/20/20 10/20/20 10/20/20 Range/Units 05:05 05:18 06:05 Plt Count (150-450) k/uL Neutrophils # (1.3-7.7) k/uL Lymphocytes # (1.0-4.8) k/uL ABG pH 7.55 H (7.35-7.45) ABG pCO2 20 L (35-45) mmHg ABG pO2 158 H (83-108) mmHg ABG HCO3 18 L (21-25) mmol/L ABG Total CO2 18 L (19-24) mmol/L ABG O2 Saturation 99.2 H (94-97) % ABG Lactic Acid (0.5-1.6) mmol/L Sodium (137-145) mmol/L Potassium (3.5-5.1) mmol/L Chloride (98-107) mmol/L Carbon Dioxide (22-30) mmol/L BUN (7-17) mg/dL Creatinine (0.52-1.04) mg/dL Glucose (74-99) mg/dL POC Glucose (mg/dL) 161 H 146 H (75-99) mg/dL Plasma Lactic Acid Walt (0.7-2.0) mmol/L Calcium (8.4-10.2) mg/dL Total Bilirubin (0.2-1.3) mg/dL AST (14-36) U/L ALT (4-34) U/L Alkaline Phosphatase (38-126) U/L Total Protein (6.3-8.2) g/dL Albumin (3.5-5.0) g/dL HDL Cholesterol (40.0-60.0) mg/dL Procalcitonin (0.02-0.09) ng/mL 10/20/20 10/20/20 Range/Units 06:59 07:35 Plt Count (150-450) k/uL Neutrophils # (1.3-7.7) k/uL Lymphocytes # (1.0-4.8) k/uL ABG pH (7.35-7.45) ABG pCO2 (35-45) mmHg ABG pO2 (83-108) mmHg ABG HCO3 (21-25) mmol/L ABG Total CO2 (19-24) mmol/L ABG O2 Saturation (94-97) % ABG Lactic Acid (0.5-1.6) mmol/L Sodium (137-145) mmol/L Potassium (3.5-5.1) mmol/L Chloride (98-107) mmol/L Carbon Dioxide (22-30) mmol/L BUN (7-17) mg/dL Creatinine (0.52-1.04) mg/dL Glucose (74-99) mg/dL POC Glucose (mg/dL) 154 H 151 H (75-99) mg/dL Plasma Lactic Acid Walt (0.7-2.0) mmol/L Calcium (8.4-10.2) mg/dL Total Bilirubin (0.2-1.3) mg/dL AST (14-36) U/L ALT (4-34) U/L Alkaline Phosphatase (38-126) U/L Total Protein (6.3-8.2) g/dL Albumin (3.5-5.0) g/dL HDL Cholesterol (40.0-60.0) mg/dL Procalcitonin (0.02-0.09) ng/mL Microbiology - Last 24 Hours (Table) 10/18/20 08:30 Blood Culture Gram Stain - Preliminary Blood Blood Culture - Preliminary Presumptive Staph aureus 10/18/20 08:15 Blood Culture Gram Stain - Preliminary Blood Blood Culture - Preliminary Staphylococcus aureus Assessment and Plan Plan: 1 septic shock secondary to staph aureus, MSSA and the patient is currently on IV cefazolin. The exact source is not clear. Could be pulmonary source involving the left lower lobe. Patient became significantly was undergone stable and hypotensive. Resuscitated aggressively with IV fluids. She was started on pressors and the patient continues to be acid dependent. Urine output is improved. In time, the patient had an echocardiogram that showed impaired left ventricular ejection fraction of around 20% contributing to her 2 diabetes mellitus with mild component of DKA and intravascular volume depletion at a time of admission and the patient was aggressively resuscitated with IV fluids and the patient remains on insulin drip for blood sugar control. Blood sugar control is much improved for now. 3 severe metabolic acidosis and lactic acidosis secondary to above 4 hypotension, essentially secondary to septic shock with possibly a cardiogenic component as the patient has an ejection fraction of 20-25% on echocardiogram., 5 coronary artery disease with previous bypass surgery 6 abnormal troponin, consider non-STEMI, patient is free of any chest pain, could be sepsis induced troponin leak 7 paroxysmal atrial fibrillation currently in normal sinus rhythm. INR is at 4.9 from this morning, no signs of any acute bleeding of vitamin K, current cardiac rhythm is still atrial fibrillation. 8 non-small cell lung cancer, stage IIIB post chemoradiation therapy. Most recent PET scan from August 2020 was essentially within stable state and the patient had no significant metabolic activity noted to suggest tumor recurrence 9 bilateral pleural effusion more so on the left, slight increased in the size of the pleural effusion based on the most recent PET scan 10 acute shock liver 11 Coumadin toxicity, without any signs of bleeding, INR is at 4.9, the patient was given vitamin K and repeat INR is pending from today. 12 acute kidney injury,, creatinine today is stable at 2.6 13 hypothermia, improving 14 CHF with an ejection fraction of 20-25% Plan The patient sedated for today Continue ventilator support and the patient's blood gases showing a component of respiratory alkalosis. I'm going to drop the respirator down to 20. Continue bicarb infusion for now at the rate of 50 Wean off pressors Continue insulin drip for now Monitor renal function monitor liver function tests, obtain a repeat PT/INR Continue IV cefazolin Repeat another set of blood cultures No weaning trials for today. The patient is still hemodynamically unstable. Prior to should be to further optimize hemodynamics today and hopefully wean her off the pressors. Family will be updated on her condition. Her condition is critical. This is a critically care evaluation was done and more than 30 minutes. Time with Patient: Greater than 30
--- NOTE | 2020-10-20 09:52 | P.PN ---
Subjective Progress Note Date: 10/20/20 Patient is sedated and intubated. Her overall condition continued to worsen yesterday with increased work of breathing requiring sedation and intubation. She is currently on low-dose norepinephrine, propofol, and insulin drip. Her urine output decreased in the last 24 hours. Objective - Vital Signs Vital signs: Vital Signs Temp 97.9 F 10/20/20 04:00 Pulse 63 10/20/20 07:00 Resp 32 H 10/20/20 07:00 BP 91/62 10/19/20 17:00 Pulse Ox 100 10/20/20 07:00 Intake & Output 10/19/20 10/20/20 10/20/20 18:59 06:59 18:59 Intake Total 4736.071 1979.805 120 Output Total 70 855 50 Balance 4666.071 1124.805 70 Weight 95.3 kg 105.4 kg Intake: IV 4500 220 20 0.9 @20mL/hr 220 20 D5W 20 K 100 0 Sodium Chloride 0.9% 1, 1400 000 ml @ 100 mls/hr IV . Q10H [facility] Rx#:[id number] Sodium Chloride 0.9% 1, 3000 000 ml @ 999 mls/hr IV . Q1H1M [facility] Rx#:[id number] Intake, IV Titration 094.357 6503.805 100 Amount Dextrose 5% in Water 1, 1100 100 000 ml @ 100 mls/hr IV . [id number] [facility] with Sodium Bicarb (1 Meq/ml) 150 ml Rx#:[id number] Insulin Regular 100 unit 12.463 21.927 In Sodium Chloride 0.9% 100 ml @ 0.1 UNITS/KG/HR 8.888 mls/hr IV .[id number] [facility] Rx#:[id number] Norepinephrine 8 mg In 191.015 83.873 Sodium Chloride 0.9% 250 ml @ 0.25 MCG/KG/MIN 46. 101 mls/hr IV .Q5H36M [facility] Rx#:[id number] Vancomycin 1,500 mg In 250 Sodium Chloride 0.9% 250 ml @ 125 mls/hr IVPB ONCE [facility] Rx#:[id number] ceFAZolin 2 gm In Sodium 50 Chloride 0.9% 50 ml @ 100 mls/hr IVPB Q12HR [facility] Rx #:[id number] propofoL 1,000 mg In 32.593 254.005 Empty Bag 1 bag @ Titrate IV .Q0M [facility] Rx#: [id number] Output: Urine 70 855 50 Other: Voiding Method Indwelling Catheter Indwelling Catheter ABP, PAP, CO, CI - Last Documented Arterial Blood Pressure 94/49 - Exam General: The patient is sedated and intubated Eye: there is normal conjunctiva bilaterally. Neck: The neck is supple, there is no JVD. Cardiovascular: Normal S1-S2, no S3-S4, no murmurs. Respiratory: Lungs with mechanical ventilator sounds to anterior chest auscultation Gastrointestinal: Abdomen is soft, nontender Musculoskeletal: There is no pedal edema. Skin: Skin is warm and dry - Labs CBC & Chem 7: 10/20/20 04:00 10/20/20 04:00 Labs: Abnormal Lab Results - Last 24 Hours (Table) 10/19/20 10/19/20 10/19/20 Range/Units 00:10 09:39 10:00 Plt Count (150-450) k/uL Neutrophils # (1.3-7.7) k/uL Lymphocytes # (1.0-4.8) k/uL ABG pH (7.35-7.45) ABG pCO2 (35-45) mmHg ABG pO2 (83-108) mmHg ABG HCO3 (21-25) mmol/L ABG Total CO2 (19-24) mmol/L ABG O2 Saturation (94-97) % ABG Lactic Acid (0.5-1.6) mmol/L Sodium 133 L (137-145) mmol/L Potassium 5.3 H (3.5-5.1) mmol/L Chloride (98-107) mmol/L Carbon Dioxide 14 L (22-30) mmol/L BUN 65 H (7-17) mg/dL Creatinine 3.01 H (0.52-1.04) mg/dL Glucose 216 H (74-99) mg/dL POC Glucose (mg/dL) (75-99) mg/dL Plasma Lactic Acid Walt 3.0 H* (0.7-2.0) mmol/L Calcium 8.0 L (8.4-10.2) mg/dL Total Bilirubin (0.2-1.3) mg/dL AST (14-36) U/L ALT (4-34) U/L Alkaline Phosphatase (38-126) U/L Total Protein (6.3-8.2) g/dL Albumin (3.5-5.0) g/dL Procalcitonin 16.10 H (0.02-0.09) ng/mL 10/19/20 10/19/20 10/19/20 Range/Units 11:08 12:14 15:07 Plt Count (150-450) k/uL Neutrophils # (1.3-7.7) k/uL Lymphocytes # (1.0-4.8) k/uL ABG pH (7.35-7.45) ABG pCO2 (35-45) mmHg ABG pO2 (83-108) mmHg ABG HCO3 (21-25) mmol/L ABG Total CO2 (19-24) mmol/L ABG O2 Saturation (94-97) % ABG Lactic Acid (0.5-1.6) mmol/L Sodium 136 L (137-145) mmol/L Potassium 5.8 H (3.5-5.1) mmol/L Chloride 108 H (98-107) mmol/L Carbon Dioxide 7 L* (22-30) mmol/L BUN 63 H (7-17) mg/dL Creatinine 3.46 H (0.52-1.04) mg/dL Glucose 145 H (74-99) mg/dL POC Glucose (mg/dL) 188 H 176 H (75-99) mg/dL Plasma Lactic Acid Walt (0.7-2.0) mmol/L Calcium (8.4-10.2) mg/dL Total Bilirubin 2.4 H (0.2-1.3) mg/dL AST 1965 H (14-36) U/L ALT 316 H (4-34) U/L Alkaline Phosphatase 132 H (38-126) U/L Total Protein (6.3-8.2) g/dL Albumin 3.2 L (3.5-5.0) g/dL Procalcitonin (0.02-0.09) ng/mL 10/19/20 10/19/20 10/19/20 Range/Units 15:10 15:12 15:23 Plt Count (150-450) k/uL Neutrophils # (1.3-7.7) k/uL Lymphocytes # (1.0-4.8) k/uL ABG pH 7.10 L* (7.35-7.45) ABG pCO2 29 L (35-45) mmHg ABG pO2 185 H (83-108) mmHg ABG HCO3 9 L* (21-25) mmol/L ABG Total CO2 10 L (19-24) mmol/L ABG O2 Saturation 98.2 H (94-97) % ABG Lactic Acid (0.5-1.6) mmol/L Sodium (137-145) mmol/L Potassium (3.5-5.1) mmol/L Chloride (98-107) mmol/L Carbon Dioxide (22-30) mmol/L BUN (7-17) mg/dL Creatinine (0.52-1.04) mg/dL Glucose (74-99) mg/dL POC Glucose (mg/dL) 125 H 132 H (75-99) mg/dL Plasma Lactic Acid Walt (0.7-2.0) mmol/L Calcium (8.4-10.2) mg/dL Total Bilirubin (0.2-1.3) mg/dL AST (14-36) U/L ALT (4-34) U/L Alkaline Phosphatase (38-126) U/L Total Protein (6.3-8.2) g/dL Albumin (3.5-5.0) g/dL Procalcitonin (0.02-0.09) ng/mL 10/19/20 10/19/20 10/19/20 Range/Units 15:50 16:01 16:08 Plt Count 110 L (150-450) k/uL Neutrophils # 7.9 H (1.3-7.7) k/uL Lymphocytes # 0.4 L (1.0-4.8) k/uL ABG pH (7.35-7.45) ABG pCO2 24 L (35-45) mmHg ABG pO2 >400 H (83-108) mmHg ABG HCO3 14 L (21-25) mmol/L ABG Total CO2 15 L (19-24) mmol/L ABG O2 Saturation 99.7 H (94-97) % ABG Lactic Acid (0.5-1.6) mmol/L Sodium (137-145) mmol/L Potassium (3.5-5.1) mmol/L Chloride (98-107) mmol/L Carbon Dioxide (22-30) mmol/L BUN (7-17) mg/dL Creatinine (0.52-1.04) mg/dL Glucose (74-99) mg/dL POC Glucose (mg/dL) 126 H (75-99) mg/dL Plasma Lactic Acid Walt (0.7-2.0) mmol/L Calcium (8.4-10.2) mg/dL Total Bilirubin (0.2-1.3) mg/dL AST (14-36) U/L ALT (4-34) U/L Alkaline Phosphatase (38-126) U/L Total Protein (6.3-8.2) g/dL Albumin (3.5-5.0) g/dL Procalcitonin (0.02-0.09) ng/mL 10/19/20 10/19/20 10/19/20 Range/Units 16:35 17:25 17:42 Plt Count (150-450) k/uL Neutrophils # (1.3-7.7) k/uL Lymphocytes # (1.0-4.8) k/uL ABG pH (7.35-7.45) ABG pCO2 (35-45) mmHg ABG pO2 (83-108) mmHg ABG HCO3 (21-25) mmol/L ABG Total CO2 (19-24) mmol/L ABG O2 Saturation (94-97) % ABG Lactic Acid 10.5 H* (0.5-1.6) mmol/L Sodium (137-145) mmol/L Potassium (3.5-5.1) mmol/L Chloride (98-107) mmol/L Carbon Dioxide (22-30) mmol/L BUN (7-17) mg/dL Creatinine (0.52-1.04) mg/dL Glucose (74-99) mg/dL POC Glucose (mg/dL) 125 H 129 H (75-99) mg/dL Plasma Lactic Acid Walt (0.7-2.0) mmol/L Calcium (8.4-10.2) mg/dL Total Bilirubin (0.2-1.3) mg/dL AST (14-36) U/L ALT (4-34) U/L Alkaline Phosphatase (38-126) U/L Total Protein (6.3-8.2) g/dL Albumin (3.5-5.0) g/dL Procalcitonin (0.02-0.09) ng/mL 10/19/20 10/19/20 10/19/20 Range/Units 17:55 18:57 20:00 Plt Count (150-450) k/uL Neutrophils # (1.3-7.7) k/uL Lymphocytes # (1.0-4.8) k/uL ABG pH (7.35-7.45) ABG pCO2 (35-45) mmHg ABG pO2 (83-108) mmHg ABG HCO3 (21-25) mmol/L ABG Total CO2 (19-24) mmol/L ABG O2 Saturation (94-97) % ABG Lactic Acid (0.5-1.6) mmol/L Sodium (137-145) mmol/L Potassium (3.5-5.1) mmol/L Chloride (98-107) mmol/L Carbon Dioxide (22-30) mmol/L BUN (7-17) mg/dL Creatinine (0.52-1.04) mg/dL Glucose (74-99) mg/dL POC Glucose (mg/dL) 155 H 142 H (75-99) mg/dL Plasma Lactic Acid Walt 6.0 H* (0.7-2.0) mmol/L Calcium (8.4-10.2) mg/dL Total Bilirubin (0.2-1.3) mg/dL AST (14-36) U/L ALT (4-34) U/L Alkaline Phosphatase (38-126) U/L Total Protein (6.3-8.2) g/dL Albumin (3.5-5.0) g/dL Procalcitonin (0.02-0.09) ng/mL 10/19/20 10/19/20 10/19/20 Range/Units 20:00 20:12 21:03 Plt Count (150-450) k/uL Neutrophils # (1.3-7.7) k/uL Lymphocytes # (1.0-4.8) k/uL ABG pH (7.35-7.45) ABG pCO2 (35-45) mmHg ABG pO2 (83-108) mmHg ABG HCO3 (21-25) mmol/L ABG Total CO2 (19-24) mmol/L ABG O2 Saturation (94-97) % ABG Lactic Acid (0.5-1.6) mmol/L Sodium (137-145) mmol/L Potassium (3.5-5.1) mmol/L Chloride 112 H (98-107) mmol/L Carbon Dioxide 13 L (22-30) mmol/L BUN 59 H (7-17) mg/dL Creatinine 2.79 H (0.52-1.04) mg/dL Glucose 148 H (74-99) mg/dL POC Glucose (mg/dL) 118 H 146 H (75-99) mg/dL Plasma Lactic Acid Walt (0.7-2.0) mmol/L Calcium 6.8 L (8.4-10.2) mg/dL Total Bilirubin (0.2-1.3) mg/dL AST (14-36) U/L ALT (4-34) U/L Alkaline Phosphatase (38-126) U/L Total Protein (6.3-8.2) g/dL Albumin (3.5-5.0) g/dL Procalcitonin (0.02-0.09) ng/mL 10/19/20 10/20/20 10/20/20 Range/Units 23:03 00:11 00:55 Plt Count (150-450) k/uL Neutrophils # (1.3-7.7) k/uL Lymphocytes # (1.0-4.8) k/uL ABG pH (7.35-7.45) ABG pCO2 (35-45) mmHg ABG pO2 (83-108) mmHg ABG HCO3 (21-25) mmol/L ABG Total CO2 (19-24) mmol/L ABG O2 Saturation (94-97) % ABG Lactic Acid (0.5-1.6) mmol/L Sodium (137-145) mmol/L Potassium (3.5-5.1) mmol/L Chloride (98-107) mmol/L Carbon Dioxide (22-30) mmol/L BUN (7-17) mg/dL Creatinine (0.52-1.04) mg/dL Glucose (74-99) mg/dL POC Glucose (mg/dL) 183 H 182 H (75-99) mg/dL Plasma Lactic Acid Walt 3.3 H* (0.7-2.0) mmol/L Calcium (8.4-10.2) mg/dL Total Bilirubin (0.2-1.3) mg/dL AST (14-36) U/L ALT (4-34) U/L Alkaline Phosphatase (38-126) U/L Total Protein (6.3-8.2) g/dL Albumin (3.5-5.0) g/dL Procalcitonin (0.02-0.09) ng/mL 10/20/20 10/20/20 10/20/20 Range/Units 00:56 01:06 02:19 Plt Count (150-450) k/uL Neutrophils # (1.3-7.7) k/uL Lymphocytes # (1.0-4.8) k/uL ABG pH (7.35-7.45) ABG pCO2 (35-45) mmHg ABG pO2 (83-108) mmHg ABG HCO3 (21-25) mmol/L ABG Total CO2 (19-24) mmol/L ABG O2 Saturation (94-97) % ABG Lactic Acid (0.5-1.6) mmol/L Sodium (137-145) mmol/L Potassium (3.5-5.1) mmol/L Chloride (98-107) mmol/L Carbon Dioxide (22-30) mmol/L BUN (7-17) mg/dL Creatinine (0.52-1.04) mg/dL Glucose (74-99) mg/dL POC Glucose (mg/dL) 215 H 238 H 210 H (75-99) mg/dL Plasma Lactic Acid Walt (0.7-2.0) mmol/L Calcium (8.4-10.2) mg/dL Total Bilirubin (0.2-1.3) mg/dL AST (14-36) U/L ALT (4-34) U/L Alkaline Phosphatase (38-126) U/L Total Protein (6.3-8.2) g/dL Albumin (3.5-5.0) g/dL Procalcitonin (0.02-0.09) ng/mL 10/20/20 10/20/20 10/20/20 Range/Units 03:12 04:00 04:00 Plt Count 102 L (150-450) k/uL Neutrophils # 8.5 H (1.3-7.7) k/uL Lymphocytes # 0.5 L (1.0-4.8) k/uL ABG pH (7.35-7.45) ABG pCO2 (35-45) mmHg ABG pO2 (83-108) mmHg ABG HCO3 (21-25) mmol/L ABG Total CO2 (19-24) mmol/L ABG O2 Saturation (94-97) % ABG Lactic Acid (0.5-1.6) mmol/L Sodium (137-145) mmol/L Potassium 3.1 L (3.5-5.1) mmol/L Chloride 111 H (98-107) mmol/L Carbon Dioxide 16 L (22-30) mmol/L BUN 64 H (7-17) mg/dL Creatinine 2.43 H (0.52-1.04) mg/dL Glucose 183 H (74-99) mg/dL POC Glucose (mg/dL) 191 H (75-99) mg/dL Plasma Lactic Acid Walt (0.7-2.0) mmol/L Calcium 7.1 L (8.4-10.2) mg/dL Total Bilirubin 1.5 H (0.2-1.3) mg/dL AST 1367 H (14-36) U/L ALT 284 H (4-34) U/L Alkaline Phosphatase (38-126) U/L Total Protein 4.4 L (6.3-8.2) g/dL Albumin 2.0 L (3.5-5.0) g/dL Procalcitonin (0.02-0.09) ng/mL 10/20/20 10/20/20 10/20/20 Range/Units 04:00 04:03 05:05 Plt Count (150-450) k/uL Neutrophils # (1.3-7.7) k/uL Lymphocytes # (1.0-4.8) k/uL ABG pH (7.35-7.45) ABG pCO2 (35-45) mmHg ABG pO2 (83-108) mmHg ABG HCO3 (21-25) mmol/L ABG Total CO2 (19-24) mmol/L ABG O2 Saturation (94-97) % ABG Lactic Acid (0.5-1.6) mmol/L Sodium (137-145) mmol/L Potassium (3.5-5.1) mmol/L Chloride (98-107) mmol/L Carbon Dioxide (22-30) mmol/L BUN (7-17) mg/dL Creatinine (0.52-1.04) mg/dL Glucose (74-99) mg/dL POC Glucose (mg/dL) 174 H 161 H (75-99) mg/dL Plasma Lactic Acid Walt 3.4 H* (0.7-2.0) mmol/L Calcium (8.4-10.2) mg/dL Total Bilirubin (0.2-1.3) mg/dL AST (14-36) U/L ALT (4-34) U/L Alkaline Phosphatase (38-126) U/L Total Protein (6.3-8.2) g/dL Albumin (3.5-5.0) g/dL Procalcitonin (0.02-0.09) ng/mL 10/20/20 10/20/20 10/20/20 Range/Units 05:18 06:05 06:59 Plt Count (150-450) k/uL Neutrophils # (1.3-7.7) k/uL Lymphocytes # (1.0-4.8) k/uL ABG pH 7.55 H (7.35-7.45) ABG pCO2 20 L (35-45) mmHg ABG pO2 158 H (83-108) mmHg ABG HCO3 18 L (21-25) mmol/L ABG Total CO2 18 L (19-24) mmol/L ABG O2 Saturation 99.2 H (94-97) % ABG Lactic Acid (0.5-1.6) mmol/L Sodium (137-145) mmol/L Potassium (3.5-5.1) mmol/L Chloride (98-107) mmol/L Carbon Dioxide (22-30) mmol/L BUN (7-17) mg/dL Creatinine (0.52-1.04) mg/dL Glucose (74-99) mg/dL POC Glucose (mg/dL) 146 H 154 H (75-99) mg/dL Plasma Lactic Acid Walt (0.7-2.0) mmol/L Calcium (8.4-10.2) mg/dL Total Bilirubin (0.2-1.3) mg/dL AST (14-36) U/L ALT (4-34) U/L Alkaline Phosphatase (38-126) U/L Total Protein (6.3-8.2) g/dL Albumin (3.5-5.0) g/dL Procalcitonin (0.02-0.09) ng/mL 10/20/20 Range/Units 07:35 Plt Count (150-450) k/uL Neutrophils # (1.3-7.7) k/uL Lymphocytes # (1.0-4.8) k/uL ABG pH (7.35-7.45) ABG pCO2 (35-45) mmHg ABG pO2 (83-108) mmHg ABG HCO3 (21-25) mmol/L ABG Total CO2 (19-24) mmol/L ABG O2 Saturation (94-97) % ABG Lactic Acid (0.5-1.6) mmol/L Sodium (137-145) mmol/L Potassium (3.5-5.1) mmol/L Chloride (98-107) mmol/L Carbon Dioxide (22-30) mmol/L BUN (7-17) mg/dL Creatinine (0.52-1.04) mg/dL Glucose (74-99) mg/dL POC Glucose (mg/dL) 151 H (75-99) mg/dL Plasma Lactic Acid Walt (0.7-2.0) mmol/L Calcium (8.4-10.2) mg/dL Total Bilirubin (0.2-1.3) mg/dL AST (14-36) U/L ALT (4-34) U/L Alkaline Phosphatase (38-126) U/L Total Protein (6.3-8.2) g/dL Albumin (3.5-5.0) g/dL Procalcitonin (0.02-0.09) ng/mL Microbiology - Last 24 Hours (Table) 10/18/20 08:30 Blood Culture Gram Stain - Preliminary Blood Blood Culture - Preliminary Presumptive Staph aureus 10/18/20 08:15 Blood Culture Gram Stain - Preliminary Blood Blood Culture - Preliminary Staphylococcus aureus Assessment and Plan Assessment: This is a 75-year-old female with past medical history significant for left lung cancer now in remission that presented to the emergency room with fevers. Patient was evaluated in the ER and admitted to the hospital for further management of her medical problems noted below. 1. Severe sepsis with septic shock, treated with aggressive IV fluid hydration and antibiotic. Now requiring low-dose vasopressors. Source of infection not exactly clear. Possibly underlying UTI. Influenza, Covid-19, and C. diff screen negative 2. Gram-positive bacteremia presumptive MSSA, started on IV vancomycin and then transitioned to IV cefazolin. Repeat blood culture from 10/19 pending. I consulted infectious disease for further evaluation. 3. DKA, mild on presentation. currently on insulin drip. Anion gap closed. Received aggressive IV fluid hydration. I will transition patient to Levemir 10 units twice daily plus sliding scale 4. Acute kidney injury, oliguric. hyperkalemia: Avoid nephrotoxins. Nephrology consulted for further evaluation. 5. Acute respiratory failure requiring sedation and mechanical intubation secondary to increased work of breathing 5. Metabolic acidosis secondary to above 6. Liver shock with coagulopathy secondary to hypotension. Liver enzymes trending now 7. Troponin elevation, non-thrombotic troponin leak secondary to severe sepsis. Cardiology consulted for further evaluation. Echocardiogram pending. 8. Chronic atrial fibrillation on anticoagulation with Coumadin, supratherapeutic INR vitamin K ordered yesterday awaiting repeat INR 9. Chronic congestive heart failure, systolic. EF of 30-35%. 10. History of lung cancer in remission
[2020-10-20 09:53] LABS: Prothrombin Time 66.6 sec (9.0-12.0)
[2020-10-20 09:59] LABS: INR 6.9 (<1.2)
[2020-10-20] MEDS ORDERED: PHYTONADIONE 10 MG in SODIUM CHLORIDE 0.9% 50 ML IVPB STA (09:59)
[2020-10-20] MEDS: ISOSORBIDE MONONITRATE ER 30 MG TAB.ER.24H PO SCH (10:06)
[2020-10-20] MEDS: METOPROLOL SUCCINATE (ER) 100 MG TAB.ER.24H PO SCH (10:06)
[2020-10-20] MEDS: PANTOPRAZOLE 40 MG/10 ML VIAL IVP SCH (10:24)
[2020-10-20 10:48] LABS: Glucose,Whole Blood 144 mg/dL (75-99)
[2020-10-20 11:29] LABS: Glucose,Whole Blood 171 mg/dL (75-99)
--- NOTE | 2020-10-20 11:47 | P.PN ---
Subjective HISTORY OF PRESENTING ILLNESS This is a pleasant 75-year-old female past medical history significant for hypertension, coronary artery disease status post bypass grafting and high risk PCI of the left main and LAD, ischemic cardiomyopathy, chronic systolic heart failure, dyslipidemia, diabetes mellitus and paroxysmal atrial fibrillation. She follows in the office with Dr. Villarreal. We have been asked to see in consultation for elevated troponin. She presented to the hospital with generalized weakness and elevated blood sugar. She also was complaining of intermittently having a fever with associated body aches. She denies having any chest pain or shortness of breath. She has had no palpitations or dizziness. She was found to have positive blood cultures with gram-positive cocci. She is currently being treated with IV antibiotics awaiting infectious disease evaluation. Most recent echocardiogram obtained December 2019 revealed impaired LV systolic function with ejection fraction 40%, grade 3 diastolic dysfunction, severely dilated left atrium, moderate aortic regurgitation, mild mitral regurgitation, [id number] tricuspid regurgitation and mild pulmonary hypertension. Most recent cardiac catheterization performed in November 2019 she underwent orbital arthrectomy and stenting of the left main with Impella support at [facility]. 10/20/2020 Patient was seen and examined in the intensive care unit maintained on mechanical ventilation. Yesterday she became increasingly hypoxic requiring intubation. Echocardiogram obtained revealed worsening LV systolic function with ejection fraction 20-25% with global hypokinesia. Blood pressure 101/60 heart rate 77. Laboratory data reviewed, INR 6.9 status post vitamin K, WBC 9.6, hemoglobin 12.3, platelets 102, sodium 138, potassium 3.1, creatinine 2.43, lactic acid 3.4, magnesium 1.7, AST 1367 and ALT 294. She is scheduled to get repeat vitamin K this morning. Warfarin on hold. Maintained on norepinephrine. 24-hour wurion output 925 ml. She received over 6L of fluid resuscitation since admission. Currently in afib with controlled ventricular rates. She went into afib yesterday afternoon. PHYSICAL EXAMINATION CONSTITUTIONAL: No apparent distress. HEENT: Head is normocephalic. Pupils are equal, round. Sclerae anicteric. Mucous membranes of the mouth are moist. No JVD. Bilateral carotid bruit. CHEST EXAMINATION: Lungs are clear to auscultation. No chest wall tenderness is noted on palpation or with deep breathing. HEART EXAMINATION: Irregular rate and rhythm. S1, S2 heard. Systolic ejection murmur at the base, no gallops or rub. EXTREMITIES: 2+ peripheral pulses, no lower extremity edema and no calf tenderness. ASSESSMENT Bacteremia Sepsis with septic shock Acute kidney injury Lactic acidosis Troponin elevation secondary to renal function and sepsis Coagulopathy Transaminitis Coronary artery disease s/p bypass grafting and high risk left main PCI Chronic systolic and diastolic heart failure, clinically euvolemic Ischemic cardiomyopathy Hypertension Paroxysmal atrial fibrillation on warfarin, went into afib 10/19. Rates are co ntrolled today. Dyslipidemia History of lung cancer PLAN Hold warfarin. Agree with Vitamin K administration. Consider dopamine if her urine output decreases for perfusion. Further recommendations to follow based on clinical course. Nurse Practitioner note has been reviewed, I agree with a documented findings and plan of care. Patient was seen and examined. Objective - Vital Signs Vital signs: Vital Signs Temp 97.5 F L 10/20/20 08:00 Pulse 77 10/20/20 11:15 Resp 20 10/20/20 11:15 BP 91/62 10/19/20 17:00 Pulse Ox 100 10/20/20 11:15 Intake & Output 10/19/20 10/20/20 10/20/20 18:59 06:59 18:59 Intake Total 4736.071 1979.805 200 Output Total 70 855 280 Balance 4666.071 1124.805 -80 Weight 95.3 kg 105.4 kg 105.4 kg Intake: IV 4500 220 100 0.9 @20mL/hr 220 100 D5W 20 K 100 0 Sodium Chloride 0.9% 1, 1400 000 ml @ 100 mls/hr IV . Q10H [facility] Rx#:[id number] Sodium Chloride 0.9% 1, 3000 000 ml @ 999 mls/hr IV . Q1H1M [facility] Rx#:[id number] Intake, IV Titration 972.608 2791.805 100 Amount Dextrose 5% in Water 1, 1100 100 000 ml @ 100 mls/hr IV . [id number] ONE with Sodium Bicarb (1 Meq/ml) 150 ml Rx#:[id number] Insulin Regular 100 unit 12.463 21.927 In Sodium Chloride 0.9% 100 ml @ 0.1 UNITS/KG/HR 8.888 mls/hr IV .[id number] [facility] Rx#:[id number] Norepinephrine 8 mg In 191.015 83.873 Sodium Chloride 0.9% 250 ml @ 0.25 MCG/KG/MIN 46. 101 mls/hr IV .Q5H36M [facility] Rx#:[id number] Vancomycin 1,500 mg In 250 Sodium Chloride 0.9% 250 ml @ 125 mls/hr IVPB ONCE ONE Rx#:[id number] ceFAZolin 2 gm In Sodium 50 Chloride 0.9% 50 ml @ 100 mls/hr IVPB Q12HR [facility] Rx #:[id number] propofoL 1,000 mg In 32.593 254.005 Empty Bag 1 bag @ Titrate IV .Q0M [facility] Rx#: [id number] Output: Urine 70 855 280 Other: Voiding Method Indwelling Catheter Indwelling Catheter ABP, PAP, CO, CI - Last Documented Arterial Blood Pressure 101/60 - Labs CBC & Chem 7: 10/20/20 04:00 10/20/20 04:00 Labs: Abnormal Lab Results - Last 24 Hours (Table) 10/19/20 10/19/20 10/19/20 Range/Units 00:10 12:14 15:07 Plt Count (150-450) k/uL Neutrophils # (1.3-7.7) k/uL Lymphocytes # (1.0-4.8) k/uL PT (9.0-12.0) sec INR (<1.2) ABG pH (7.35-7.45) ABG pCO2 (35-45) mmHg ABG pO2 (83-108) mmHg ABG HCO3 (21-25) mmol/L ABG Total CO2 (19-24) mmol/L ABG O2 Saturation (94-97) % ABG Lactic Acid (0.5-1.6) mmol/L Sodium 136 L (137-145) mmol/L Potassium 5.8 H (3.5-5.1) mmol/L Chloride 108 H (98-107) mmol/L Carbon Dioxide 7 L* (22-30) mmol/L BUN 63 H (7-17) mg/dL Creatinine 3.46 H (0.52-1.04) mg/dL Glucose 145 H (74-99) mg/dL POC Glucose (mg/dL) 176 H (75-99) mg/dL Plasma Lactic Acid Walt (0.7-2.0) mmol/L Calcium (8.4-10.2) mg/dL Total Bilirubin 2.4 H (0.2-1.3) mg/dL AST 1965 H (14-36) U/L ALT 316 H (4-34) U/L Alkaline Phosphatase 132 H (38-126) U/L Total Protein (6.3-8.2) g/dL Albumin 3.2 L (3.5-5.0) g/dL Procalcitonin 16.10 H (0.02-0.09) ng/mL 10/19/20 10/19/20 10/19/20 Range/Units 15:10 15:12 15:23 Plt Count (150-450) k/uL Neutrophils # (1.3-7.7) k/uL Lymphocytes # (1.0-4.8) k/uL PT (9.0-12.0) sec INR (<1.2) ABG pH 7.10 L* (7.35-7.45) ABG pCO2 29 L (35-45) mmHg ABG pO2 185 H (83-108) mmHg ABG HCO3 9 L* (21-25) mmol/L ABG Total CO2 10 L (19-24) mmol/L ABG O2 Saturation 98.2 H (94-97) % ABG Lactic Acid (0.5-1.6) mmol/L Sodium (137-145) mmol/L Potassium (3.5-5.1) mmol/L Chloride (98-107) mmol/L Carbon Dioxide (22-30) mmol/L BUN (7-17) mg/dL Creatinine (0.52-1.04) mg/dL Glucose (74-99) mg/dL POC Glucose (mg/dL) 125 H 132 H (75-99) mg/dL Plasma Lactic Acid Walt (0.7-2.0) mmol/L Calcium (8.4-10.2) mg/dL Total Bilirubin (0.2-1.3) mg/dL AST (14-36) U/L ALT (4-34) U/L Alkaline Phosphatase (38-126) U/L Total Protein (6.3-8.2) g/dL Albumin (3.5-5.0) g/dL Procalcitonin (0.02-0.09) ng/mL 10/19/20 10/19/20 10/19/20 Range/Units 15:50 16:01 16:08 Plt Count 110 L (150-450) k/uL Neutrophils # 7.9 H (1.3-7.7) k/uL Lymphocytes # 0.4 L (1.0-4.8) k/uL PT (9.0-12.0) sec INR (<1.2) ABG pH (7.35-7.45) ABG pCO2 24 L (35-45) mmHg ABG pO2 >400 H (83-108) mmHg ABG HCO3 14 L (21-25) mmol/L ABG Total CO2 15 L (19-24) mmol/L ABG O2 Saturation 99.7 H (94-97) % ABG Lactic Acid (0.5-1.6) mmol/L Sodium (137-145) mmol/L Potassium (3.5-5.1) mmol/L Chloride (98-107) mmol/L Carbon Dioxide (22-30) mmol/L BUN (7-17) mg/dL Creatinine (0.52-1.04) mg/dL Glucose (74-99) mg/dL POC Glucose (mg/dL) 126 H (75-99) mg/dL Plasma Lactic Acid Walt (0.7-2.0) mmol/L Calcium (8.4-10.2) mg/dL Total Bilirubin (0.2-1.3) mg/dL AST (14-36) U/L ALT (4-34) U/L Alkaline Phosphatase (38-126) U/L Total Protein (6.3-8.2) g/dL Albumin (3.5-5.0) g/dL Procalcitonin (0.02-0.09) ng/mL 10/19/20 10/19/20 10/19/20 Range/Units 16:35 17:25 17:42 Plt Count (150-450) k/uL Neutrophils # (1.3-7.7) k/uL Lymphocytes # (1.0-4.8) k/uL PT (9.0-12.0) sec INR (<1.2) ABG pH (7.35-7.45) ABG pCO2 (35-45) mmHg ABG pO2 (83-108) mmHg ABG HCO3 (21-25) mmol/L ABG Total CO2 (19-24) mmol/L ABG O2 Saturation (94-97) % ABG Lactic Acid 10.5 H* (0.5-1.6) mmol/L Sodium (137-145) mmol/L Potassium (3.5-5.1) mmol/L Chloride (98-107) mmol/L Carbon Dioxide (22-30) mmol/L BUN (7-17) mg/dL Creatinine (0.52-1.04) mg/dL Glucose (74-99) mg/dL POC Glucose (mg/dL) 125 H 129 H (75-99) mg/dL Plasma Lactic Acid Walt (0.7-2.0) mmol/L Calcium (8.4-10.2) mg/dL Total Bilirubin (0.2-1.3) mg/dL AST (14-36) U/L ALT (4-34) U/L Alkaline Phosphatase (38-126) U/L Total Protein (6.3-8.2) g/dL Albumin (3.5-5.0) g/dL Procalcitonin (0.02-0.09) ng/mL 10/19/20 10/19/20 10/19/20 Range/Units 17:55 18:57 20:00 Plt Count (150-450) k/uL Neutrophils # (1.3-7.7) k/uL Lymphocytes # (1.0-4.8) k/uL PT (9.0-12.0) sec INR (<1.2) ABG pH (7.35-7.45) ABG pCO2 (35-45) mmHg ABG pO2 (83-108) mmHg ABG HCO3 (21-25) mmol/L ABG Total CO2 (19-24) mmol/L ABG O2 Saturation (94-97) % ABG Lactic Acid (0.5-1.6) mmol/L Sodium (137-145) mmol/L Potassium (3.5-5.1) mmol/L Chloride (98-107) mmol/L Carbon Dioxide (22-30) mmol/L BUN (7-17) mg/dL Creatinine (0.52-1.04) mg/dL Glucose (74-99) mg/dL POC Glucose (mg/dL) 155 H 142 H (75-99) mg/dL Plasma Lactic Acid Walt 6.0 H* (0.7-2.0) mmol/L Calcium (8.4-10.2) mg/dL Total Bilirubin (0.2-1.3) mg/dL AST (14-36) U/L ALT (4-34) U/L Alkaline Phosphatase (38-126) U/L Total Protein (6.3-8.2) g/dL Albumin (3.5-5.0) g/dL Procalcitonin (0.02-0.09) ng/mL 10/19/20 10/19/20 10/19/20 Range/Units 20:00 20:12 21:03 Plt Count (150-450) k/uL Neutrophils # (1.3-7.7) k/uL Lymphocytes # (1.0-4.8) k/uL PT (9.0-12.0) sec INR (<1.2) ABG pH (7.35-7.45) ABG pCO2 (35-45) mmHg ABG pO2 (83-108) mmHg ABG HCO3 (21-25) mmol/L ABG Total CO2 (19-24) mmol/L ABG O2 Saturation (94-97) % ABG Lactic Acid (0.5-1.6) mmol/L Sodium (137-145) mmol/L Potassium (3.5-5.1) mmol/L Chloride 112 H (98-107) mmol/L Carbon Dioxide 13 L (22-30) mmol/L BUN 59 H (7-17) mg/dL Creatinine 2.79 H (0.52-1.04) mg/dL Glucose 148 H (74-99) mg/dL POC Glucose (mg/dL) 118 H 146 H (75-99) mg/dL Plasma Lactic Acid Walt (0.7-2.0) mmol/L Calcium 6.8 L (8.4-10.2) mg/dL Total Bilirubin (0.2-1.3) mg/dL AST (14-36) U/L ALT (4-34) U/L Alkaline Phosphatase (38-126) U/L Total Protein (6.3-8.2) g/dL Albumin (3.5-5.0) g/dL Procalcitonin (0.02-0.09) ng/mL 10/19/20 10/20/20 10/20/20 Range/Units 23:03 00:11 00:55 Plt Count (150-450) k/uL Neutrophils # (1.3-7.7) k/uL Lymphocytes # (1.0-4.8) k/uL PT (9.0-12.0) sec INR (<1.2) ABG pH (7.35-7.45) ABG pCO2 (35-45) mmHg ABG pO2 (83-108) mmHg ABG HCO3 (21-25) mmol/L ABG Total CO2 (19-24) mmol/L ABG O2 Saturation (94-97) % ABG Lactic Acid (0.5-1.6) mmol/L Sodium (137-145) mmol/L Potassium (3.5-5.1) mmol/L Chloride (98-107) mmol/L Carbon Dioxide (22-30) mmol/L BUN (7-17) mg/dL Creatinine (0.52-1.04) mg/dL Glucose (74-99) mg/dL POC Glucose (mg/dL) 183 H 182 H (75-99) mg/dL Plasma Lactic Acid Walt 3.3 H* (0.7-2.0) mmol/L Calcium (8.4-10.2) mg/dL Total Bilirubin (0.2-1.3) mg/dL AST (14-36) U/L ALT (4-34) U/L Alkaline Phosphatase (38-126) U/L Total Protein (6.3-8.2) g/dL Albumin (3.5-5.0) g/dL Procalcitonin (0.02-0.09) ng/mL 10/20/20 10/20/20 10/20/20 Range/Units 00:56 01:06 02:19 Plt Count (150-450) k/uL Neutrophils # (1.3-7.7) k/uL Lymphocytes # (1.0-4.8) k/uL PT (9.0-12.0) sec INR (<1.2) ABG pH (7.35-7.45) ABG pCO2 (35-45) mmHg ABG pO2 (83-108) mmHg ABG HCO3 (21-25) mmol/L ABG Total CO2 (19-24) mmol/L ABG O2 Saturation (94-97) % ABG Lactic Acid (0.5-1.6) mmol/L Sodium (137-145) mmol/L Potassium (3.5-5.1) mmol/L Chloride (98-107) mmol/L Carbon Dioxide (22-30) mmol/L BUN (7-17) mg/dL Creatinine (0.52-1.04) mg/dL Glucose (74-99) mg/dL POC Glucose (mg/dL) 215 H 238 H 210 H (75-99) mg/dL Plasma Lactic Acid Walt (0.7-2.0) mmol/L Calcium (8.4-10.2) mg/dL Total Bilirubin (0.2-1.3) mg/dL AST (14-36) U/L ALT (4-34) U/L Alkaline Phosphatase (38-126) U/L Total Protein (6.3-8.2) g/dL Albumin (3.5-5.0) g/dL Procalcitonin (0.02-0.09) ng/mL 10/20/20 10/20/20 10/20/20 Range/Units 03:12 04:00 04:00 Plt Count 102 L (150-450) k/uL Neutrophils # 8.5 H (1.3-7.7) k/uL Lymphocytes # 0.5 L (1.0-4.8) k/uL PT (9.0-12.0) sec INR (<1.2) ABG pH (7.35-7.45) ABG pCO2 (35-45) mmHg ABG pO2 (83-108) mmHg ABG HCO3 (21-25) mmol/L ABG Total CO2 (19-24) mmol/L ABG O2 Saturation (94-97) % ABG Lactic Acid (0.5-1.6) mmol/L Sodium (137-145) mmol/L Potassium 3.1 L (3.5-5.1) mmol/L Chloride 111 H (98-107) mmol/L Carbon Dioxide 16 L (22-30) mmol/L BUN 64 H (7-17) mg/dL Creatinine 2.43 H (0.52-1.04) mg/dL Glucose 183 H (74-99) mg/dL POC Glucose (mg/dL) 191 H (75-99) mg/dL Plasma Lactic Acid Walt (0.7-2.0) mmol/L Calcium 7.1 L (8.4-10.2) mg/dL Total Bilirubin 1.5 H (0.2-1.3) mg/dL AST 1367 H (14-36) U/L ALT 284 H (4-34) U/L Alkaline Phosphatase (38-126) U/L Total Protein 4.4 L (6.3-8.2) g/dL Albumin 2.0 L (3.5-5.0) g/dL Procalcitonin (0.02-0.09) ng/mL 10/20/20 10/20/20 10/20/20 Range/Units 04:00 04:03 05:05 Plt Count (150-450) k/uL Neutrophils # (1.3-7.7) k/uL Lymphocytes # (1.0-4.8) k/uL PT (9.0-12.0) sec INR (<1.2) ABG pH (7.35-7.45) ABG pCO2 (35-45) mmHg ABG pO2 (83-108) mmHg ABG HCO3 (21-25) mmol/L ABG Total CO2 (19-24) mmol/L ABG O2 Saturation (94-97) % ABG Lactic Acid (0.5-1.6) mmol/L Sodium (137-145) mmol/L Potassium (3.5-5.1) mmol/L Chloride (98-107) mmol/L Carbon Dioxide (22-30) mmol/L BUN (7-17) mg/dL Creatinine (0.52-1.04) mg/dL Glucose (74-99) mg/dL POC Glucose (mg/dL) 174 H 161 H (75-99) mg/dL Plasma Lactic Acid Walt 3.4 H* (0.7-2.0) mmol/L Calcium (8.4-10.2) mg/dL Total Bilirubin (0.2-1.3) mg/dL AST (14-36) U/L ALT (4-34) U/L Alkaline Phosphatase (38-126) U/L Total Protein (6.3-8.2) g/dL Albumin (3.5-5.0) g/dL Procalcitonin (0.02-0.09) ng/mL 10/20/20 10/20/20 10/20/20 Range/Units 05:18 06:05 06:59 Plt Count (150-450) k/uL Neutrophils # (1.3-7.7) k/uL Lymphocytes # (1.0-4.8) k/uL PT (9.0-12.0) sec INR (<1.2) ABG pH 7.55 H (7.35-7.45) ABG pCO2 20 L (35-45) mmHg ABG pO2 158 H (83-108) mmHg ABG HCO3 18 L (21-25) mmol/L ABG Total CO2 18 L (19-24) mmol/L ABG O2 Saturation 99.2 H (94-97) % ABG Lactic Acid (0.5-1.6) mmol/L Sodium (137-145) mmol/L Potassium (3.5-5.1) mmol/L Chloride (98-107) mmol/L Carbon Dioxide (22-30) mmol/L BUN (7-17) mg/dL Creatinine (0.52-1.04) mg/dL Glucose (74-99) mg/dL POC Glucose (mg/dL) 146 H 154 H (75-99) mg/dL Plasma Lactic Acid Walt (0.7-2.0) mmol/L Calcium (8.4-10.2) mg/dL Total Bilirubin (0.2-1.3) mg/dL AST (14-36) U/L ALT (4-34) U/L Alkaline Phosphatase (38-126) U/L Total Protein (6.3-8.2) g/dL Albumin (3.5-5.0) g/dL Procalcitonin (0.02-0.09) ng/mL 10/20/20 10/20/20 10/20/20 Range/Units 07:35 09:31 10:47 Plt Count (150-450) k/uL Neutrophils # (1.3-7.7) k/uL Lymphocytes # (1.0-4.8) k/uL PT 66.6 H (9.0-12.0) sec INR 6.9 H* (<1.2) ABG pH (7.35-7.45) ABG pCO2 (35-45) mmHg ABG pO2 (83-108) mmHg ABG HCO3 (21-25) mmol/L ABG Total CO2 (19-24) mmol/L ABG O2 Saturation (94-97) % ABG Lactic Acid (0.5-1.6) mmol/L Sodium (137-145) mmol/L Potassium (3.5-5.1) mmol/L Chloride (98-107) mmol/L Carbon Dioxide (22-30) mmol/L BUN (7-17) mg/dL Creatinine (0.52-1.04) mg/dL Glucose (74-99) mg/dL POC Glucose (mg/dL) 151 H 144 H (75-99) mg/dL Plasma Lactic Acid Walt (0.7-2.0) mmol/L Calcium (8.4-10.2) mg/dL Total Bilirubin (0.2-1.3) mg/dL AST (14-36) U/L ALT (4-34) U/L Alkaline Phosphatase (38-126) U/L Total Protein (6.3-8.2) g/dL Albumin (3.5-5.0) g/dL Procalcitonin (0.02-0.09) ng/mL 10/20/20 Range/Units 11:28 Plt Count (150-450) k/uL Neutrophils # (1.3-7.7) k/uL Lymphocytes # (1.0-4.8) k/uL PT (9.0-12.0) sec INR (<1.2) ABG pH (7.35-7.45) ABG pCO2 (35-45) mmHg ABG pO2 (83-108) mmHg ABG HCO3 (21-25) mmol/L ABG Total CO2 (19-24) mmol/L ABG O2 Saturation (94-97) % ABG Lactic Acid (0.5-1.6) mmol/L Sodium (137-145) mmol/L Potassium (3.5-5.1) mmol/L Chloride (98-107) mmol/L Carbon Dioxide (22-30) mmol/L BUN (7-17) mg/dL Creatinine (0.52-1.04) mg/dL Glucose (74-99) mg/dL POC Glucose (mg/dL) 171 H (75-99) mg/dL Plasma Lactic Acid Walt (0.7-2.0) mmol/L Calcium (8.4-10.2) mg/dL Total Bilirubin (0.2-1.3) mg/dL AST (14-36) U/L ALT (4-34) U/L Alkaline Phosphatase (38-126) U/L Total Protein (6.3-8.2) g/dL Albumin (3.5-5.0) g/dL Procalcitonin (0.02-0.09) ng/mL Microbiology - Last 24 Hours (Table) 10/18/20 08:30 Blood Culture Gram Stain - Preliminary Blood Blood Culture - Preliminary Presumptive Staph aureus 10/18/20 08:15 Blood Culture Gram Stain - Preliminary Blood Blood Culture - Preliminary Staphylococcus aureus
[2020-10-20 12:46] LABS: Glucose,Whole Blood 213 mg/dL (75-99)
[2020-10-20] MEDS: INSULIN ASPART (NovoLOG) 100 UNIT/ML VIAL SQ SCH ×2 (12:51→17:42)
[2020-10-20] MEDS: NOREPINEPHRINE 8 MG in SODIUM CHLORIDE 0.9% 250 ML IV SCH ×4 (13:58→21:33)
--- NOTE | 2020-10-20 14:39 | CONS ---
CONSULTATION REASON FOR CONSULT: Renal failure. HISTORY OF PRESENT ILLNESS: The patient is a 75-year-old female who was admitted to the hospital on 10/18/2020 with complaints of shortness of breath. She developed worsening respiratory failure and was eventually intubated yesterday. Patient has a history of [id number] lung cancer, locally advanced stage III, status post chemo and radiation therapy. Her serum creatinine has been increasing since admission with creatinine going up from 2.3 to 3.46 yesterday with decreased urine output. Previous creatinine is noted to be 1.3 on 08/18/2020. The patient was acidotic yesterday with CO2 of 7 and was started on a bicarb drip. She also received a dose of IV Lasix. Her urine output has picked up now staying at about 60 to 75 mL/hour an hour. The patient is maintained on Levophed. It is slightly lower dose than yesterday. Systolic blood pressure remains 90-106 mmHg for systolic. FiO2 is at 35%. PAST MEDICAL HISTORY: Significant for atrial fibrillation, coronary artery disease, type 2 diabetes, hyperlipidemia, hypertension, UT, osteoarthritis, non-small cell lung cancer, chemo radiation therapy, chronic back pain, hypothyroidism, asthma. PAST SURGICAL HISTORY: Adenoidectomy, coronary artery bypass surgery, cardiac catheterization, coronary stent placement, tonsillectomy, left carotid endarterectomy, colonoscopy, hemangioma removed from the mouth, coronary artery bypass surgery. SOCIAL HISTORY: Positive for patient being a former smoker. No history of drug abuse or alcohol abuse. MEDICATIONS: Medications currently include Lipitor, Synthroid, Lasix, insulin, spironolactone, Plavix, Imdur, losartan, metoprolol. ALLERGIES: ALLERGIES include PENICILLIN, which causes rash and hives. REVIEW OF SYSTEMS: As per HPI. Other systems negative. Patient is currently intubated. PHYSICAL EXAMINATION: Blood pressure was 105/60, heart rate 82 per minute. Patient is on the vent, she is sedated. Examination of the heart S1, S2. Examination of the lungs, bilateral breath sounds are heard. Abdomen is soft, nontender. Examination of lower extremities shows no significant edema. G[employer]ST [employer]IENCE [employer] exam cannot be performed. LAB: Show sodium 138, potassium 3.1, chloride 111, CO2 is 16, BUN 64, serum creatinine 2.43. Lactic acid was 3.4 today, which is down from 6 previously. UA shows 2+ protein, blood small. WBCs 8. Taylor virus PCR is negative. Hemoglobin 12.3, white cell count 9.6. Blood cultures are growing Staph aureus. ASSESSMENT: 1. Acute kidney injury, acute tubular necrosis initially oliguric, currently nonoliguric secondary to sepsis and hypotension. The renal function slowly improving. The patient is not maintained on any nephrotoxic medications. 2. Metabolic acidosis initially with high gap and now the gap is closed. This was most likely related to the lactic acidosis. There was an element of metabolic acidosis from renal failure as well. The patient is status post bicarb drip. Her acidosis is improved, although she has a component of respiratory alkalosis as well with pH of 7.5. 3. Hyperkalemia associated with acute kidney injury, metabolic acidosis, currently improved. Potassium is actually on the lower side. It is has been replaced. 4. Sepsis with blood cultures growing Staph aureus, susceptibilities pending. 5. Acute hypoxic respiratory failure, secondary to sepsis. 6. History of [id number] lung cancer status post chemo radiation therapy. PLAN: Decrease sodium bicarb drip. Repeat potassium level later on today and continue to avoid nephrotoxic agents. Thank you for this consultation. We will continue to follow the patient with you during her hospitalization. MMODL / IJN: [id number] /
[2020-10-20 15:32] LABS: Calcium 7.3 mg/dL (8.4-10.2); Magnesium 1.7 mg/dL (1.6-2.3); Potassium 3.7 mmol/L (3.5-5.1)
[2020-10-20] MEDS: DEXTROSE 5% IN WATER 1,000 ML with SODIUM BICARB (1 MEQ/ML) 150 ML IV SCH ×2 (15:33→22:46)
[2020-10-20 17:36] LABS: Glucose,Whole Blood 174 mg/dL (75-99)
--- NOTE | 2020-10-20 19:38 | PN ---
PROGRESS NOTE DATE OF SERVICE: 10/20/2020 REASON FOR FOLLOWUP: MSSA bacteremia, possible pneumonia. INTERVAL HISTORY: Patient did go into respiratory distress last evening and patient ended up getting intubated. Did not have significant purulent secretions through the ET. The patient is currently on low-dose pressor support to maintain her sats. No significant purulent secretions in the ET or diarrhea reported by nursing staff. PHYSICAL EXAMINATION: Blood pressure 102/52 with a pulse of 74. Temperature is 97.8. She is 100% on 35% FiO2. General description is an elderly female lying in bed in no distress. Respiratory system: Unlabored breathing, decreased intensity of breath sounds. No wheeze. HEART: S1, S2. Regular rate and rhythm. Abdomen soft, no tenderness. LABS: BUN of 67, creatinine is 2.16. Hemoglobin is 12.8, white count 9.6. Blood culture repeat on October 19 so far negative. Sputum culture has been requested, which is currently pending. DIAGNOSTIC IMPRESSION AND PLAN: Patient with MSSA bacteremia concern for possible pneumonia. Patient is covered with cefazolin to continue. Family at the bedside. Questions were answered. MMODL / IJN: [id number] /
[2020-10-20 20:19] LABS: Glucose,Whole Blood 207 mg/dL (75-99)
[2020-10-20] MEDS ORDERED: INSULIN DETEMIR (LEVEMIR) 100 UNIT/ML SYR SQ SCH (21:00)
[2020-10-21 00:24] LABS: Glucose,Whole Blood 222 mg/dL (75-99)
[2020-10-21] MEDS: INSULIN ASPART (NovoLOG) 100 UNIT/ML VIAL SQ SCH ×5 (00:32→20:18)
[2020-10-21 04:43] LABS: Glucose,Whole Blood 231 mg/dL (75-99)
[2020-10-21 05:14] LABS: ABG Base Excess 2.2 mmol/L; ABG HCO3 25 mmol/L (21-25); ABG Oxygen Saturation 98.6 % (94-97); ABG PCO2 31 mmHg (35-45); ABG PH 7.52 (7.35-7.45); ABG PO2 130 mmHg (83-108); ABG TCO2 26 mmol/L (19-24)
[2020-10-21 05:17] LABS: Allen Test Performed? no
[2020-10-21 05:22] LABS: Basophils % (A) 0 %; Eosinophils % (A) 0 %; HCT 39.5 % (34.0-46.0); HGB 13.2 gm/dL (11.4-16.0); Lymphocytes # (A) 0.4 k/uL (1.0-4.8); Lymphocytes % (A) 4 %; MCH 31.8 pg (25.0-35.0); MCHC 33.5 g/dL (31.0-37.0); MCV 95.1 fL (80.0-100.0); Mean Platelet Volume 10.5; Monocytes # (A) 0.5 k/uL (0-1.0); Monocytes % (A) 5 %; Neutrophils # (A) 8.6 k/uL (1.3-7.7); Neutrophils % (A) 89 %; Platelet Count 101 k/uL (150-450); RBC 4.16 m/uL (3.80-5.40); RDW 14.8 % (11.5-15.5); WBC 9.6 k/uL (3.8-10.6)
[2020-10-21] MEDS: NOREPINEPHRINE 8 MG in SODIUM CHLORIDE 0.9% 250 ML IV SCH (05:26)
[2020-10-21 05:40] LABS: INR 1.5 (<1.2); Prothrombin Time 14.9 sec (9.0-12.0)
[2020-10-21 06:12] LABS: Albumin 2.2 g/dL (3.5-5.0); Calcium 7.4 mg/dL (8.4-10.2); Magnesium 1.5 mg/dL (1.6-2.3); Phosphorus 2.5 mg/dL (2.5-4.5); Total Bilirubin 1.6 mg/dL (0.2-1.3); Total Protein 4.8 g/dL (6.3-8.2)
[2020-10-21] MEDS: INSULIN DETEMIR (LEVEMIR) 100 UNIT/ML SYR SQ SCH (06:29)
[2020-10-21] MEDS: LEVOTHYROXINE 88 MCG TAB PO SCH (06:31)
[2020-10-21 07:01] LABS: Potassium 3.3 mmol/L (3.5-5.1)
--- NOTE | 2020-10-21 07:27 | XR ---
EXAMINATION TYPE: XR chest 1V portable DATE OF EXAM: 10/21/2020 COMPARISON: 10/21/2020 HISTORY: Tube placement TECHNIQUE: Single frontal view of the chest is obtained. FINDINGS: Lines and tubes are in unchanged positions. Unchanged elevation of the left hemidiaphragm. Minimal right basilar airspace disease appears worse w hen compared to the prior exam. Postoperative changes overlie the cardiac silhouette. Patient is status post sternotomy with broken w ires. IMPRESSION: Minimal right basilar airspace disease appears worsened when compared to the prior exam.
[2020-10-21] MEDS ORDERED: Potassium Replacement Protocol 1 EACH MISC MISCELLANE PRN (07:37)
[2020-10-21] MEDS: POTASSIUM BICARBONATE/CIT AC 20 MEQ TABLET.EFF NG-TUBE SCH ×2 (07:43→10:30)
[2020-10-21] MEDS ORDERED: HEPARIN SODIUM 1,000 UN/ML (10ML VL) IV ONE (09:24)
--- NOTE | 2020-10-21 09:52 | P.PN ---
Subjective Progress Note Date: 10/21/20 75-year-old female patient known history of non-small cell lung cancer locally advanced stage III be treated with a combination of chemoradiation therapy with favorable response. The patient was considered for surgical resection and was able to be nonsurgical due to borderline lung function and location of the tumor. The patient had an FEV1 of 60% of predicted. The patient was started with the immunotherapy for a while. She also has history of CHF with an ejection fraction of 3035% with global hypokinesis, CAD with previous bypass surgery in 2005 and previous non-STEMI and diabetes mellitus. The patient came into the emergency department yesterday because of altered mental status and body aches and pains at home. The patient was initially tachycardic with a heart rate of 117. The blood work showed a white cell count of 11.7, sodium was 131 with a potassium level of 5.3 and a serum bicarb of 14 with anion gap of 17. BUN was 55 with a creatinine of 2.3. Glucose was 47. Lactic acid level was 3.8 and a magnesium of 1.8 and troponin of 0.9 initially and it maxed out at 1.2 suggestive an acute non-STEMI.. UA was negative. COVID-19 testing was negative. The lactic acid level was as high as 7.5. Chest x-ray was consistent with a left suprahilar mass and a small left-sided pleural effusion. The patient was running a temperature of 99.5. She was complaining of shortness of breath. Her chest x-ray also showed a moderate-sized left-sided pleural effusion along with some volume loss in the left suprahilar mass. The patient has not received any treatment regarding her malignancy for the past few years. Most recent PET/CT from 08/21/2020 showed no areas of new metabolic activity to suggest recurrent tumor. There was small to moderate-sized left-sided pleural effusion that had shown some increased interval size compared to earlier PET/CT. This morning, the patient is calm and comfortable. No signs of any major respiratory distress. She remained in 100% nonrebreather facemask and her pulse ox is in the order of 95-99%. She didn't use the BiPAP overnight depression of 12/6 with an FiO2 of 50%. She was given a total of 4 L of IV fluids overnight. Urine output in order of 10 mL an hour. CAT scan of the abdomen and pelvis was completed and showed lateral pleural effusions along with cardiomegaly. No acute intra-abdominal pathology. Her morning INR is at 4.9. She is on insulin drip running at 1.12 units hour. After being given 4 L of IV fluid, the patient continued to be running some low blood pressure. She is also on norepinephrine infusion this morning at a dose of 0.16 mcg/kg per minute. Most recent blood pressure is 120/51. She has an arterial radial line on the right. No tachycardia. She is currently in normal sinus rhythm. 10/20/2020, the patient is being seen in follow-up in the intensive care unit. Events from yesterday were noted. After my morning evaluation, I reevaluated this patient and ICU at around 3:00 in the afternoon. The patient was becoming progressively more septic. She was becoming progressively more acidotic, tachypneic, tachycardic, hypotensive, urine output was low and the patient was very much cold and clammy. Her lactic acid level was also on the rise. Based on that, I inserted a triple lumen catheter and was started fluid resuscitation. We also intubated the patient with on a mechanical ventilator. The patient's subsequent pillowcase turner to have positive blood cultures with MSSA. IDs aware and the patient was started on IV cefazolin. 2 cultures of the blood are positive. This morning, the patient is sedated with propofol and probably was running at 30 mcg/kg per minute and the patient is calm and comfortable. She is intubated on a mechanical ventilator. She is an assist-control mode at the rate of 32 with a tidal volume of 500 and FiO2 of 35% with a PEEP of 5. Chest x-ray showing some atelectatic changes/effusion the left lung base. Right lung essentially clear. ET tube is in a good location and the patient has a triple lumen catheter in the left subclavian. No significant orotracheal secretions. She is quite success with the mechanical ventilator. She is able to generate a minute ventilation of 16.3 L with a peak airway pressure of around 26. Hemodynamically, the patient was given a total of 6 L of IV fluid bolus. She was also on a bicarb infusion initially at a dose of 100 mL an hour and currently she is at 50 mL an hour. Urine output has improved and the patient is producing urine output in the order of 75 mL an hour. Also, she remains on pressors. Norepinephrine infusion is running at 0.05 mcg/kg per minute. Insulin drip is also at 1.5 units an hour. On her labs, acid peaked at 10 and the most recent lactic acid level is at 3.4. The serum bicarb from this morning is at 16. Her BUN is at 64 with a creatinine of 2.4. Creatinine peaked at 3.46 and this is from yesterday noontime. She does have a component of shock liver and the LFTs are also abnormal with an AST of 1367 and ALP of 284. Bilirubin is at 1.5. The white cell count today is at 9.6 with a hemoglobin of 12.3. Platelet count has dropped to 102 pro-calcitonin level is up to 16.1. Serum cortisol was at 95 and no hydrocortisone was given. Troponins were also positive and a peaked at 1.2. Cardiac cardiac rhythm is atrial fibrillation with a controlled rate. 10/21/2020, I'm seeing the patient for a follow-up. She has done good progress and the patient septic shock was treated with antibiotics with IV cefazolin. Repeat blood cultures been negative. Patient was found to have MSSA in the blood. In general, she is doing better. Her lactic acid levels have improved. Hemodynamics improved and she is on minimal amount of pressors at this point in time and urine output is also improved. The patient this morning is sedated with propofol which is running at 15 mcg/kg per minute. She is on a mechanical ventilator with an assist-control mode at the rate of 20 with a tidal volume of 500 and FiO2 of 35% with a PEEP of 5. Blood gases from today is showing a pH of 7.52 with a pCO2 of 31 and pO2 of 130. Chest x-ray is unchanged and the patient has a left perihilar opacity consistent with non-small cell lung cancer in addition to chronic left-sided pleural effusion and some elevation of the left hemidiaphragm. Her DKA has completely recovered and the patient is currently off insulin drip and she is on Levemir insulin for blood sugar control. The patient is on IV cefazolin for her underlying MSSA septic shock. Shock liver is improving. Kidney injury is improving. Creatinine is down to 1.8. Pressors requirements have improved. No other significant issues otherwise. We are the process of getting this patient a sedation holiday and assess her underlying mental status and readiness to wean.\ Objective - Vital Signs Vital signs: Vital Signs Temp 97.2 F L 10/21/20 08:00 Pulse 71 10/21/20 08:30 Resp 20 10/21/20 08:30 BP 122/72 10/21/20 08:30 Pulse Ox 100 10/21/20 08:30 Intake & Output 10/20/20 10/21/20 10/21/20 18:59 06:59 18:59 Intake Total 124.262 2588.155 187.962 Output Total 765 1186 300 Balance -21.388 1007.155 -112.038 Weight 105.4 kg Intake: IV 260 676 152 0.9 @20mL/hr 260 220 40 A-Line Pressure Bag 3 6 CVP 3 6 Dextrose 5% in Water 1, 450 100 000 ml @ 50 mls/hr IV . Q23H ULI with Sodium Bicarb (1 Meq/ml) 150 ml Rx#:[id number] Intake, IV Titration 403.612 887.155 5.962 Amount Dextrose 5% in Water 1, 100 600 000 ml @ 100 mls/hr IV . [id number] ONE with Sodium Bicarb (1 Meq/ml) 150 ml Rx#:[id number] Norepinephrine 8 mg In 124.562 144.111 5.962 Sodium Chloride 0.9% 250 ml @ 0.25 MCG/KG/MIN 46. 101 mls/hr IV .[id number] [facility] Rx#:[id number] ceFAZolin 2 gm In Sodium 50 Chloride 0.9% 50 ml @ 100 mls/hr IVPB Q12HR [facility] Rx #:[id number] propofoL 1,000 mg In 179.050 93.044 Empty Bag 1 bag @ Titrate IV .Q0M [facility] Rx#: [id number] Oral 300 Tube Feeding 80 240 30 Other 90 Output: Urine 765 1186 300 Other: Voiding Method Indwelling Catheter Indwelling Catheter Indwelling Catheter ABP, PAP, CO, CI - Last Documented Arterial Blood Pressure 118/49 - Exam Gen. appearance, comfortable no acute distress.appearance, comfortable, sedated on a mechanical ventilator. Orogastric and orotracheal tube are both in place. Head exam was generally normal. There was no scleral icterus or corneal arcus. Mucous membranes were moist. Neck was supple and without jugular venous distension, thyromegaly, or carotid bruits. Carotids were easily palpable bilaterally. There was no adenopathy. Lungs were clear to auscultation and percussion, and with normal diaphragmatic excursion. No wheezes or rales were noted. Cardiac exam revealed the PMI to be normally situated and sized. The rhythm was regular and no extrasystoles were noted during several minutes of auscultation. The first and second heart sounds were normal and physiologic splitting of the second heart sound was noted. There were no murmurs, rubs, clicks, or gallops. Abdominal exam revealed normal bowel sounds. The abdomen was soft, non-tender, and without masses, organomegaly, or appreciable enlargement of the abdominal aorta. Examination of the extremities revealed easily palpable radial, femoral and pedal pulses. There was no cyanosis, clubbing or edema. Examination of the skin revealed no evidence of significant rashes, suspicious appearing nevi or other concerning lesions. Neurologically, the patient is sedated - Labs CBC & Chem 7: 10/21/20 04:33 10/21/20 04:33 Labs: Abnormal Lab Results - Last 24 Hours (Table) 10/20/20 10/20/20 10/20/20 Range/Units 09:31 10:47 11:28 Plt Count (150-450) k/uL Neutrophils # (1.3-7.7) k/uL Lymphocytes # (1.0-4.8) k/uL PT 66.6 H (9.0-12.0) sec INR 6.9 H* (<1.2) ABG pH (7.35-7.45) ABG pCO2 (35-45) mmHg ABG pO2 (83-108) mmHg ABG Total CO2 (19-24) mmol/L ABG O2 Saturation (94-97) % Potassium (3.5-5.1) mmol/L BUN (7-17) mg/dL Creatinine (0.52-1.04) mg/dL Glucose (74-99) mg/dL POC Glucose (mg/dL) 144 H 171 H (75-99) mg/dL Calcium (8.4-10.2) mg/dL Magnesium (1.6-2.3) mg/dL Total Bilirubin (0.2-1.3) mg/dL AST (14-36) U/L ALT (4-34) U/L Alkaline Phosphatase (38-126) U/L Total Protein (6.3-8.2) g/dL Albumin (3.5-5.0) g/dL 10/20/20 10/20/20 10/20/20 Range/Units 12:44 14:50 17:34 Plt Count (150-450) k/uL Neutrophils # (1.3-7.7) k/uL Lymphocytes # (1.0-4.8) k/uL PT (9.0-12.0) sec INR (<1.2) ABG pH (7.35-7.45) ABG pCO2 (35-45) mmHg ABG pO2 (83-108) mmHg ABG Total CO2 (19-24) mmol/L ABG O2 Saturation (94-97) % Potassium (3.5-5.1) mmol/L BUN 67 H (7-17) mg/dL Creatinine 2.16 H (0.52-1.04) mg/dL Glucose 195 H (74-99) mg/dL POC Glucose (mg/dL) 213 H 174 H (75-99) mg/dL Calcium 7.3 L (8.4-10.2) mg/dL Magnesium (1.6-2.3) mg/dL Total Bilirubin (0.2-1.3) mg/dL AST (14-36) U/L ALT (4-34) U/L Alkaline Phosphatase (38-126) U/L Total Protein (6.3-8.2) g/dL Albumin (3.5-5.0) g/dL 10/20/20 10/21/20 10/21/20 Range/Units 20:17 00:22 04:33 Plt Count 101 L (150-450) k/uL Neutrophils # 8.6 H (1.3-7.7) k/uL Lymphocytes # 0.4 L (1.0-4.8) k/uL PT (9.0-12.0) sec INR (<1.2) ABG pH (7.35-7.45) ABG pCO2 (35-45) mmHg ABG pO2 (83-108) mmHg ABG Total CO2 (19-24) mmol/L ABG O2 Saturation (94-97) % Potassium (3.5-5.1) mmol/L BUN (7-17) mg/dL Creatinine (0.52-1.04) mg/dL Glucose (74-99) mg/dL POC Glucose (mg/dL) 207 H 222 H (75-99) mg/dL Calcium (8.4-10.2) mg/dL Magnesium (1.6-2.3) mg/dL Total Bilirubin (0.2-1.3) mg/dL AST (14-36) U/L ALT (4-34) U/L Alkaline Phosphatase (38-126) U/L Total Protein (6.3-8.2) g/dL Albumin (3.5-5.0) g/dL 10/21/20 10/21/20 10/21/20 Range/Units 04:33 04:33 04:41 Plt Count (150-450) k/uL Neutrophils # (1.3-7.7) k/uL Lymphocytes # (1.0-4.8) k/uL PT 14.9 H (9.0-12.0) sec INR 1.5 H (<1.2) ABG pH (7.35-7.45) ABG pCO2 (35-45) mmHg ABG pO2 (83-108) mmHg ABG Total CO2 (19-24) mmol/L ABG O2 Saturation (94-97) % Potassium 3.3 L (3.5-5.1) mmol/L BUN 63 H (7-17) mg/dL Creatinine 1.80 H (0.52-1.04) mg/dL Glucose 254 H (74-99) mg/dL POC Glucose (mg/dL) 231 H (75-99) mg/dL Calcium 7.4 L (8.4-10.2) mg/dL Magnesium 1.5 L (1.6-2.3) mg/dL Total Bilirubin 1.6 H (0.2-1.3) mg/dL AST 1290 H (14-36) U/L ALT 240 H (4-34) U/L Alkaline Phosphatase 127 H (38-126) U/L Total Protein 4.8 L (6.3-8.2) g/dL Albumin 2.2 L (3.5-5.0) g/dL 10/21/20 Range/Units 05:12 Plt Count (150-450) k/uL Neutrophils # (1.3-7.7) k/uL Lymphocytes # (1.0-4.8) k/uL PT (9.0-12.0) sec INR (<1.2) ABG pH 7.52 H (7.35-7.45) ABG pCO2 31 L (35-45) mmHg ABG pO2 130 H (83-108) mmHg ABG Total CO2 26 H (19-24) mmol/L ABG O2 Saturation 98.6 H (94-97) % Potassium (3.5-5.1) mmol/L BUN (7-17) mg/dL Creatinine (0.52-1.04) mg/dL Glucose (74-99) mg/dL POC Glucose (mg/dL) (75-99) mg/dL Calcium (8.4-10.2) mg/dL Magnesium (1.6-2.3) mg/dL Total Bilirubin (0.2-1.3) mg/dL AST (14-36) U/L ALT (4-34) U/L Alkaline Phosphatase (38-126) U/L Total Protein (6.3-8.2) g/dL Albumin (3.5-5.0) g/dL Microbiology - Last 24 Hours (Table) 10/18/20 08:30 Blood Culture Gram Stain - Final Blood Blood Culture - Final Staphylococcus aureus 10/18/20 08:15 Blood Culture Gram Stain - Final Blood Blood Culture - Final Staphylococcus aureus 10/20/20 04:00 Blood Culture - Preliminary Blood No Growth after 24 hours 10/20/20 11:31 Sputum Culture - Preliminary Sputum 10/19/20 10:00 Blood Culture - Preliminary Blood No Growth after 24 hours Assessment and Plan Plan: 1 septic shock secondary to staph aureus, MSSA and the patient is currently on IV cefazolin. The exact source is not clear. Could be pulmonary source involving the left lower lobe. Patient became significantly was undergone stable and hypotensive. Resuscitated aggressively with IV fluids. She was started on pressors and the patient continues to be acid dependent. Urine output is improved. Echocardiogram that showed impaired left ventricular ejection fraction of around 20% contributing to her 2 diabetes mellitus with mild component of DKA order the patient was started on Levemir insulin for blood sugar control along with a sinus care coverage. Rest 3 severe metabolic acidosis and lactic acidosis secondary to above covered in the serum bicarb is up to 25. 4 hypotension, essentially secondary to septic shock with possibly a cardiogenic component as the patient has an ejection fraction of 20-25% on echocardiogram., Minimal dose of norepinephrine infusion at the patient's sepsis is being treated 5 coronary artery disease with previous bypass surgery 6 abnormal troponin, consider non-STEMI, patient is free of any chest pain, could be sepsis induced troponin leaktroponin leak that 1.28, consider underlying mild component of non-STEMI. 7 paroxysmal atrial fibrillation , and 10 mg of vitamin K yesterday and INR from this morning is at 1.5. 8 non-small cell lung cancer, stage IIIB post chemoradiation therapy. Most recent PET scan from August 2020 was essentially within stable state and the patient had no significant metabolic activity noted to suggest tumor recurrence 9 bilateral pleural effusion more so on the left, slight increased in the size of the pleural effusion based on the most recent PET scan 10 acute shock liver, Improving on today's evaluation 11 Coumadin toxicity, without any signs of bleeding, recovered 12 acute kidney injury, and is down to 1.8 13 hypothermia, improving 14 CHF with an ejection fraction of 20-25% Plan Will drop the tidal volume to 450, dropped a respiratory rate down to 12 and the patient's blood gases showing a component of respiratory alkalosis. The patient sedated for today Weaning parameters Assess candidacy for further weaning Agree on IV heparin for now as a bridge for warfarin nontender the patient has been anticoagulated on long-term basis with Coumadin on outpatient basis Wean off pressors and stop Agree on Levemir insulin Repeat blood cultures of been negative Continue IV cefazolin We'll continue to follow Her condition is critical. This is a critically care evaluation was done and more than 30 minutes. Time with Patient: Greater than 30
[2020-10-21] MEDS: SODIUM CHLORIDE 0.9% 1,000 ML IV SCH (10:02)
[2020-10-21 10:29] LABS: INR 1.4 (<1.2); Partial Thromboplastin Time 27.2 sec (22.0-30.0); Prothrombin Time 13.8 sec (9.0-12.0)
[2020-10-21] MEDS: ASPIRIN 81 MG PO SCH (10:29)
[2020-10-21] MEDS: CLOPIDOGREL 75 MG TAB PO SCH (10:30)
[2020-10-21] MEDS: CHLORHEXIDINE GLUCONATE 15 ML CUP MUCOUS MEM SCH ×2 (10:30→20:17)
[2020-10-21] MEDS: PANTOPRAZOLE 40 MG/10 ML VIAL IVP SCH (10:30)
--- NOTE | 2020-10-21 10:46 | P.PN ---
Subjective HISTORY OF PRESENTING ILLNESS This is a pleasant 75-year-old female past medical history significant for hypertension, coronary artery disease status post bypass grafting and high risk PCI of the left main and LAD, ischemic cardiomyopathy, chronic systolic heart failure, dyslipidemia, diabetes mellitus and paroxysmal atrial fibrillation. She follows in the office with Dr. Villarreal. We have been asked to see in consultation for elevated troponin. She presented to the hospital with generalized weakness and elevated blood sugar. She also was complaining of intermittently having a fever with associated body aches. She denies having any chest pain or shortness of breath. She has had no palpitations or dizziness. She was found to have positive blood cultures with gram-positive cocci. She is currently being treated with IV antibiotics awaiting infectious disease evaluation. Most recent echocardiogram obtained December 2019 revealed impaired LV systolic function with ejection fraction 40%, grade 3 diastolic dysfunction, severely dilated left atrium, moderate aortic regurgitation, mild mitral regurgitation, [id number] tricuspid regurgitation and mild pulmonary hypertension. Most recent cardiac catheterization performed in November 2019 she underwent orbital arthrectomy and stenting of the left main with Impella support at [facility]. 10/20/2020 Patient was seen and examined in the intensive care unit maintained on mechanical ventilation. She continues to be maintained on levophed infusion for blood pressure. Currently she is 118/51 with heart rate of 78 afebrile and maintaining oxygen saturations. Laboratory data reviewed, WBC 9.6, hemoglobin 13.2, platelets 101, INR 1.4, pH 7.52, pCO2 31 by mouth 230, sodium 137, potassium 3.3, creatinine 1.8, magnesium 1.5. 24-hour urine output almost 2 L. Chest x-ray reveals minimal right basilar airspace disease. PHYSICAL EXAMINATION CONSTITUTIONAL: No apparent distress. HEENT: Head is normocephalic. Pupils are equal, round. Sclerae anicteric. Mucous membranes of the mouth are moist. No JVD. Bilateral carotid bruit. CHEST EXAMINATION: Lungs are clear to auscultation. No chest wall tenderness is noted on palpation or with deep breathing. HEART EXAMINATION: Irregular rate and rhythm. S1, S2 heard. Systolic ejection murmur at the base, no gallops or rub. EXTREMITIES: 2+ peripheral pulses, no lower extremity edema and no calf tenderness. ASSESSMENT Bacteremia Sepsis with septic shock Acute kidney injury Lactic acidosis Troponin elevation secondary to renal function and sepsis Coagulopathy Transaminitis Hypokalemia Hypomagnesemia Coronary artery disease s/p bypass grafting and high risk left main PCI Chronic systolic and diastolic heart failure, clinically euvolemic Ischemic cardiomyopathy Hypertension Paroxysmal atrial fibrillation on warfarin, went into afib 10/19. Rates are controlled today. Dyslipidemia History of lung cancer PLAN Heparin infusion has been initiated for thromboembolic protection. Continue current medical regimen. Critical care team plans for possible vent weaning. We will continue to provide supportive care. Further recommendations to follow. Nurse Practitioner note has been reviewed, I agree with a documented findings and plan of care. Patient was seen and examined. Objective - Vital Signs Vital signs: Vital Signs Temp 97.2 F L 10/21/20 08:00 Pulse 78 10/21/20 10:00 Resp 18 10/21/20 10:00 BP 122/72 10/21/20 10:00 Pulse Ox 100 10/21/20 10:00 Intake & Output 10/20/20 10/21/20 10/21/20 18:59 06:59 18:59 Intake Total 085.653 3060.155 432.925 Output Total 765 1186 420 Balance -21.388 1007.155 12.925 Weight 105.4 kg Intake: IV 260 676 304 0.9 @20mL/hr 260 220 180 A-Line Pressure Bag 3 12 CVP 3 12 Dextrose 5% in Water 1, 450 100 000 ml @ 50 mls/hr IV . Q23H [facility] with Sodium Bicarb (1 Meq/ml) 150 ml Rx#:[id number] Intake, IV Titration 403.612 887.155 98.925 Amount Dextrose 5% in Water 1, 100 600 000 ml @ 100 mls/hr IV . [id number] ONE with Sodium Bicarb (1 Meq/ml) 150 ml Rx#:[id number] Norepinephrine 8 mg In 124.562 144.111 5.962 Sodium Chloride 0.9% 250 ml @ 0.25 MCG/KG/MIN 46. 101 mls/hr IV .Q5H36M [facility] Rx#:[id number] ceFAZolin 2 gm In Sodium 50 Chloride 0.9% 50 ml @ 100 mls/hr IVPB Q12HR [facility] Rx #:[id number] propofoL 1,000 mg In 179.050 93.044 92.963 Empty Bag 1 bag @ Titrate IV .Q0M [facility] Rx#: [id number] Oral 300 Tube Feeding 80 240 30 Other 90 Output: Urine 765 1186 420 Other: Voiding Method Indwelling Catheter Indwelling Catheter Indwelling Catheter ABP, PAP, CO, CI - Last Documented Arterial Blood Pressure 118/51 - Labs CBC & Chem 7: 10/21/20 04:33 10/21/20 04:33 Labs: Abnormal Lab Results - Last 24 Hours (Table) 10/20/20 10/20/20 10/20/20 Range/Units 10:47 11:28 12:44 Plt Count (150-450) k/uL Neutrophils # (1.3-7.7) k/uL Lymphocytes # (1.0-4.8) k/uL PT (9.0-12.0) sec INR (<1.2) ABG pH (7.35-7.45) ABG pCO2 (35-45) mmHg ABG pO2 (83-108) mmHg ABG Total CO2 (19-24) mmol/L ABG O2 Saturation (94-97) % Potassium (3.5-5.1) mmol/L BUN (7-17) mg/dL Creatinine (0.52-1.04) mg/dL Glucose (74-99) mg/dL POC Glucose (mg/dL) 144 H 171 H 213 H (75-99) mg/dL Calcium (8.4-10.2) mg/dL Magnesium (1.6-2.3) mg/dL Total Bilirubin (0.2-1.3) mg/dL AST (14-36) U/L ALT (4-34) U/L Alkaline Phosphatase (38-126) U/L Total Protein (6.3-8.2) g/dL Albumin (3.5-5.0) g/dL 10/20/20 10/20/20 10/20/20 Range/Units 14:50 17:34 20:17 Plt Count (150-450) k/uL Neutrophils # (1.3-7.7) k/uL Lymphocytes # (1.0-4.8) k/uL PT (9.0-12.0) sec INR (<1.2) ABG pH (7.35-7.45) ABG pCO2 (35-45) mmHg ABG pO2 (83-108) mmHg ABG Total CO2 (19-24) mmol/L ABG O2 Saturation (94-97) % Potassium (3.5-5.1) mmol/L BUN 67 H (7-17) mg/dL Creatinine 2.16 H (0.52-1.04) mg/dL Glucose 195 H (74-99) mg/dL POC Glucose (mg/dL) 174 H 207 H (75-99) mg/dL Calcium 7.3 L (8.4-10.2) mg/dL Magnesium (1.6-2.3) mg/dL Total Bilirubin (0.2-1.3) mg/dL AST (14-36) U/L ALT (4-34) U/L Alkaline Phosphatase (38-126) U/L Total Protein (6.3-8.2) g/dL Albumin (3.5-5.0) g/dL 10/21/20 10/21/20 10/21/20 Range/Units 00:22 04:33 04:33 Plt Count 101 L (150-450) k/uL Neutrophils # 8.6 H (1.3-7.7) k/uL Lymphocytes # 0.4 L (1.0-4.8) k/uL PT 14.9 H (9.0-12.0) sec INR 1.5 H (<1.2) ABG pH (7.35-7.45) ABG pCO2 (35-45) mmHg ABG pO2 (83-108) mmHg ABG Total CO2 (19-24) mmol/L ABG O2 Saturation (94-97) % Potassium (3.5-5.1) mmol/L BUN (7-17) mg/dL Creatinine (0.52-1.04) mg/dL Glucose (74-99) mg/dL POC Glucose (mg/dL) 222 H (75-99) mg/dL Calcium (8.4-10.2) mg/dL Magnesium (1.6-2.3) mg/dL Total Bilirubin (0.2-1.3) mg/dL AST (14-36) U/L ALT (4-34) U/L Alkaline Phosphatase (38-126) U/L Total Protein (6.3-8.2) g/dL Albumin (3.5-5.0) g/dL 10/21/20 10/21/20 10/21/20 Range/Units 04:33 04:41 05:12 Plt Count (150-450) k/uL Neutrophils # (1.3-7.7) k/uL Lymphocytes # (1.0-4.8) k/uL PT (9.0-12.0) sec INR (<1.2) ABG pH 7.52 H (7.35-7.45) ABG pCO2 31 L (35-45) mmHg ABG pO2 130 H (83-108) mmHg ABG Total CO2 26 H (19-24) mmol/L ABG O2 Saturation 98.6 H (94-97) % Potassium 3.3 L (3.5-5.1) mmol/L BUN 63 H (7-17) mg/dL Creatinine 1.80 H (0.52-1.04) mg/dL Glucose 254 H (74-99) mg/dL POC Glucose (mg/dL) 231 H (75-99) mg/dL Calcium 7.4 L (8.4-10.2) mg/dL Magnesium 1.5 L (1.6-2.3) mg/dL Total Bilirubin 1.6 H (0.2-1.3) mg/dL AST 1290 H (14-36) U/L ALT 240 H (4-34) U/L Alkaline Phosphatase 127 H (38-126) U/L Total Protein 4.8 L (6.3-8.2) g/dL Albumin 2.2 L (3.5-5.0) g/dL 10/21/20 Range/Units 10:00 Plt Count (150-450) k/uL Neutrophils # (1.3-7.7) k/uL Lymphocytes # (1.0-4.8) k/uL PT 13.8 H (9.0-12.0) sec INR 1.4 H (<1.2) ABG pH (7.35-7.45) ABG pCO2 (35-45) mmHg ABG pO2 (83-108) mmHg ABG Total CO2 (19-24) mmol/L ABG O2 Saturation (94-97) % Potassium (3.5-5.1) mmol/L BUN (7-17) mg/dL Creatinine (0.52-1.04) mg/dL Glucose (74-99) mg/dL POC Glucose (mg/dL) (75-99) mg/dL Calcium (8.4-10.2) mg/dL Magnesium (1.6-2.3) mg/dL Total Bilirubin (0.2-1.3) mg/dL AST (14-36) U/L ALT (4-34) U/L Alkaline Phosphatase (38-126) U/L Total Protein (6.3-8.2) g/dL Albumin (3.5-5.0) g/dL Microbiology - Last 24 Hours (Table) 10/18/20 08:30 Blood Culture Gram Stain - Final Blood Blood Culture - Final Staphylococcus aureus 10/18/20 08:15 Blood Culture Gram Stain - Final Blood Blood Culture - Final Staphylococcus aureus 10/20/20 04:00 Blood Culture - Preliminary Blood No Growth after 24 hours 10/20/20 11:31 Sputum Culture - Preliminary Sputum 10/19/20 10:00 Blood Culture - Preliminary Blood No Growth after 24 hours
[2020-10-21] MEDS: HEPARIN SOD,PORK IN 0.45% NACL 25,000 UNIT in 0.45% NACL 1 250ML.BAG IV SCH (10:57)
[2020-10-21 12:08] LABS: Glucose,Whole Blood 257 mg/dL (75-99)
[2020-10-21] MEDS ORDERED: Magnesium Replacement Protocol 1 EACH MISC MISCELLANE PRN (12:31)
--- NOTE | 2020-10-21 12:59 | PN ---
PROGRESS NOTE Patient is seen for followup for acute kidney injury. Patient's renal function has been improving. It is mostly acute tubular necrosis associated with hypotension and sepsis. The patient was also acidotic and was maintained on bicarb drip. This has currently improved. On examination today, patient remains on the vent. FiO2 is at 35%. PHYSICAL EXAMINATION: Blood pressure this morning 111/55, heart rate of 98 per minute. Patient is afebrile. Examination of the heart S1, S2. Examination of the lungs, bilateral breath sounds are heard. Abdomen is soft, nontender. Examination of lower extremities shows 1+ edema bilaterally. [employer] exam grossly intact. LAB: Show sodium 137, potassium 3.3, chloride 106, BUN 63, serum creatinine 1.8. ASSESSMENT: 1. Acute kidney injury, acute tubular necrosis, currently nonoliguric, improving. Etiology was hypotension, hypoperfusion and sepsis. 2. Staph aureus bacteremia, MSSA. Repeat blood cultures currently negative status post vancomycin. Currently maintained on cefazolin. 3. Acute hypoxic respiratory failure secondary to sepsis. 4. History of [id number] lung cancer status post chemo radiation therapy. 5. Hyperkalemia associated with acute kidney injury, metabolic acidosis, now improved. 6. Hypokalemia secondary to bicarb drip and improving renal function, currently being replaced. 7. Metabolic acidosis initially with high gap and then later on the gap was closed. The patient also had lactic acidosis. She is status post a bicarb drip. 8. Respiratory alkalosis improved and post adjustment of vent settings from yesterday. 9. Hypomagnesemia status post replacement. 10.Diabetic ketoacidosis on initial admission currently resolved. PLAN: Replace potassium. DC bicarb drip. Switch to normal saline. Continue to avoid nephrotoxic medications. MMODL / IJN: [id number] /
[2020-10-21] MEDS: METOPROLOL SUCCINATE (ER) 100 MG TAB.ER.24H PO SCH (13:06)
[2020-10-21] MEDS: ISOSORBIDE MONONITRATE ER 30 MG TAB.ER.24H PO SCH (13:06)
[2020-10-21] MEDS: MAGNESIUM SULFATE-D5W PMX 1 GM in DEXTROSE/WATER 1 100ML.BAG IVPB SCH ×2 (13:06→14:28)
--- NOTE | 2020-10-21 14:32 | P.PN ---
Subjective Progress Note Date: 10/21/20 Principal diagnosis: muscle cramps Patient is a 75-year-old female with left-sided lung cancer diagnosed in 2018 recent negative/CT, diabetes mellitus type 2 insulin requiring, coronary artery disease status post PCI and ultimately coronary artery bypass grafting, dysli pidemia, hypertension, and thyroid disorder who presented to the ER secondary to fevers. On arrival to the ER she was slightly tachycardic with pulse of 117. Initial laboratory evaluation showed white blood cell count 11.7, sodium 131, potassium 5.3, carbon dioxide 14, anion gap 17, BUN 55, creatinine 2.3, glucose 410, lactic acid 3.8, magnesium 1.4, and troponin 0.960. Urinalysis was not consistent with urinary tract infection. COVID-19 Testing was negative. Chest x-ray consistent with known left suprahilar neoplasm and small left pleural effusion. In the ER she was given a dose of Tylenol, Rocephin, magnesium and IV fluids. She then became hypotensive and had increasing shortness of breath. She was given IV fluids started on BiPAP. In transit to the ICU. She was started on vancomycin and cefepime. She required intubation on 10/19. She was ultimately found to have MSSA bacteremia. She did have an echocardiogram that showed ejection fraction 20-25%. CT abdomen and pelvis showed no acute process within the abdomen and pelvis. She is followed by critical care, infectious disease, cardiology, and nephrology. Patient seen and examined at bedside. Sedated on vent. No acute events overnight per nursing. General: ill appearing, mild distress, appears at stated age Derm: warm, dry Head: atraumatic, normocephalic, symmetric Eyes: EOMI, no lid lag, anicteric sclera Mouth: no lip lesion, mucus membranes moist Cardiovascular: S1S2 reg, no murmur, positive posterior tibial pulse bilateral, Lungs: CTA bilateral, no rhonchi, no rales , no accessory muscle use Abdominal: soft, nontender to palpation, no guarding, no appreciable organomegaly Ext: no gross muscle atrophy, no edema, no contractures Neuro: Sedated on vent Psych: Sedated on vent MSSA Bacteremia with sepsis, possible left lower lobe pneumonia, Acute hypoxic respiratory failure - continue with cefazolin - wean vasopressors as able - ID recs appreciated - Critical care recs appreciated - flu, RSV, COVID, UA negative - procalcitonin elevated CARSON -IV fluids -Nephro recs appreciated; off Bicarb gtt -Hold Aldactone, Lasix, and Cozaar -Avoid additional nephrotoxic agents Shock liver, due to sepsis - avoid hepato toxic agents - supprotive care Hyperglycemia with a anion gap metabolic acidosis - await A1C - Continue with sliding scale insulin -Increase long-acting insulin NSTEMI, TYPE 2- history of coronary artery disease status post CABG -Continue to follow troponins, maybe secondary to CARSON -Aspirin - Lipitor - BB - cardio recs Paroxysmal atrial fibrillation with Coumadin use -Continue current medications -Follow telemetry - start heparin gtt as coumadin below 2 Systolic congestive heart failure without exacerbation -Ejection fraction 20-25% -Hold diuretics and Cozaar, continue to hold beta lucila -Monitor closely with need for IV fluid resuscitation -Telemetry -Daily weights -Cardiology recommendations Thrombocytopenia chronic near baseline - follow CBC Lactic acidosis, resolved Lung cancer in remission, NSS Metabolic acidosis hyperkalemia, resolved hyponatremia, resolved DKA resolved DVT prophylaxis: heparin gtt Anticipated discharge date: in 4-[address]: home A total of 35 minutes was spent on the care of this complex patient more than 50% of the time was spent in counseling and care coordination. Objective - Vital Signs Vital signs: Vital Signs Temp 97.6 F 10/21/20 12:00 Pulse 104 H 10/21/20 14:15 Resp 24 10/21/20 14:15 BP 122/72 10/21/20 14:15 Pulse Ox 100 10/21/20 14:15 Intake & Output 10/20/20 10/21/20 10/21/20 18:59 06:59 18:59 Intake Total 356.015 2229.155 802.311 Output Total 765 1186 700 Balance -21.388 1007.155 102.311 Weight 105.4 kg Intake: IV 260 676 648 0.9 @20mL/hr 260 220 300 0.9 pressure bag 12 A-Line Pressure Bag 3 18 CVP 3 18 Dextrose 5% in Water 1, 450 100 000 ml @ 50 mls/hr IV . Q23H [facility] with Sodium Bicarb (1 Meq/ml) 150 ml Rx#:[id number] Magnesium Sulfate-D5w Pmx 100 1 gm In Dextrose/Water 1 100ml.bag @ 100 mls/hr IVPB Q1H [facility] Rx#: [id number] Sodium Chloride 0.9% 1, 100 000 ml @ 50 mls/hr IV . Q20H [facility] Rx#:[id number] Intake, IV Titration 403.612 887.155 124.311 Amount Dextrose 5% in Water 1, 100 600 000 ml @ 100 mls/hr IV . [id number] ONE with Sodium Bicarb (1 Meq/ml) 150 ml Rx#:[id number] Norepinephrine 8 mg In 124.562 144.111 31.348 Sodium Chloride 0.9% 250 ml @ 0.25 MCG/KG/MIN 46. 101 mls/hr IV .Q5H36M [facility] Rx#:[id number] ceFAZolin 2 gm In Sodium 50 Chloride 0.9% 50 ml @ 100 mls/hr IVPB Q12HR [facility] Rx #:[id number] propofoL 1,000 mg In 179.050 93.044 92.963 Empty Bag 1 bag @ Titrate IV .Q0M [facility] Rx#: [id number] Oral 300 Tube Feeding 80 240 30 Other 90 Output: Urine 765 1186 700 Other: Voiding Method Indwelling Catheter Indwelling Catheter Indwelling Catheter ABP, PAP, CO, CI - Last Documented Arterial Blood Pressure 115/59 - Labs CBC & Chem 7: 10/21/20 04:33 10/21/20 04:33 Labs: Abnormal Lab Results - Last 24 Hours (Table) 10/20/20 10/20/20 10/20/20 Range/Units 14:50 17:34 20:17 Plt Count (150-450) k/uL Neutrophils # (1.3-7.7) k/uL Lymphocytes # (1.0-4.8) k/uL PT (9.0-12.0) sec INR (<1.2) ABG pH (7.35-7.45) ABG pCO2 (35-45) mmHg ABG pO2 (83-108) mmHg ABG Total CO2 (19-24) mmol/L ABG O2 Saturation (94-97) % Potassium (3.5-5.1) mmol/L BUN 67 H (7-17) mg/dL Creatinine 2.16 H (0.52-1.04) mg/dL Glucose 195 H (74-99) mg/dL POC Glucose (mg/dL) 174 H 207 H (75-99) mg/dL Calcium 7.3 L (8.4-10.2) mg/dL Magnesium (1.6-2.3) mg/dL Total Bilirubin (0.2-1.3) mg/dL AST (14-36) U/L ALT (4-34) U/L Alkaline Phosphatase (38-126) U/L Total Protein (6.3-8.2) g/dL Albumin (3.5-5.0) g/dL 10/21/20 10/21/20 10/21/20 Range/Units 00:22 04:33 04:33 Plt Count 101 L (150-450) k/uL Neutrophils # 8.6 H (1.3-7.7) k/uL Lymphocytes # 0.4 L (1.0-4.8) k/uL PT 14.9 H (9.0-12.0) sec INR 1.5 H (<1.2) ABG pH (7.35-7.45) ABG pCO2 (35-45) mmHg ABG pO2 (83-108) mmHg ABG Total CO2 (19-24) mmol/L ABG O2 Saturation (94-97) % Potassium (3.5-5.1) mmol/L BUN (7-17) mg/dL Creatinine (0.52-1.04) mg/dL Glucose (74-99) mg/dL POC Glucose (mg/dL) 222 H (75-99) mg/dL Calcium (8.4-10.2) mg/dL Magnesium (1.6-2.3) mg/dL Total Bilirubin (0.2-1.3) mg/dL AST (14-36) U/L ALT (4-34) U/L Alkaline Phosphatase (38-126) U/L Total Protein (6.3-8.2) g/dL Albumin (3.5-5.0) g/dL 10/21/20 10/21/20 10/21/20 Range/Units 04:33 04:41 05:12 Plt Count (150-450) k/uL Neutrophils # (1.3-7.7) k/uL Lymphocytes # (1.0-4.8) k/uL PT (9.0-12.0) sec INR (<1.2) ABG pH 7.52 H (7.35-7.45) ABG pCO2 31 L (35-45) mmHg ABG pO2 130 H (83-108) mmHg ABG Total CO2 26 H (19-24) mmol/L ABG O2 Saturation 98.6 H (94-97) % Potassium 3.3 L (3.5-5.1) mmol/L BUN 63 H (7-17) mg/dL Creatinine 1.80 H (0.52-1.04) mg/dL Glucose 254 H (74-99) mg/dL POC Glucose (mg/dL) 231 H (75-99) mg/dL Calcium 7.4 L (8.4-10.2) mg/dL Magnesium 1.5 L (1.6-2.3) mg/dL Total Bilirubin 1.6 H (0.2-1.3) mg/dL AST 1290 H (14-36) U/L ALT 240 H (4-34) U/L Alkaline Phosphatase 127 H (38-126) U/L Total Protein 4.8 L (6.3-8.2) g/dL Albumin 2.2 L (3.5-5.0) g/dL 10/21/20 10/21/20 Range/Units 10:00 12:07 Plt Count (150-450) k/uL Neutrophils # (1.3-7.7) k/uL Lymphocytes # (1.0-4.8) k/uL PT 13.8 H (9.0-12.0) sec INR 1.4 H (<1.2) ABG pH (7.35-7.45) ABG pCO2 (35-45) mmHg ABG pO2 (83-108) mmHg ABG Total CO2 (19-24) mmol/L ABG O2 Saturation (94-97) % Potassium (3.5-5.1) mmol/L BUN (7-17) mg/dL Creatinine (0.52-1.04) mg/dL Glucose (74-99) mg/dL POC Glucose (mg/dL) 257 H (75-99) mg/dL Calcium (8.4-10.2) mg/dL Magnesium (1.6-2.3) mg/dL Total Bilirubin (0.2-1.3) mg/dL AST (14-36) U/L ALT (4-34) U/L Alkaline Phosphatase (38-126) U/L Total Protein (6.3-8.2) g/dL Albumin (3.5-5.0) g/dL Microbiology - Last 24 Hours (Table) 10/20/20 10:00 Blood Culture - Preliminary Blood No Growth after 24 hours 10/20/20 10:00 Blood Culture - Preliminary Blood No Growth after 24 hours 10/19/20 10:00 Blood Culture - Preliminary Blood No Growth after 48 hours 10/20/20 11:31 Gram Stain - Preliminary Sputum Sputum Culture - Preliminary 10/18/20 08:30 Blood Culture Gram Stain - Final Blood Blood Culture - Final Staphylococcus aureus 10/18/20 08:15 Blood Culture Gram Stain - Final Blood Blood Culture - Final Staphylococcus aureus 10/20/20 04:00 Blood Culture - Preliminary Blood No Growth after 24 hours
--- NOTE | 2020-10-21 15:18 | PN ---
PROGRESS NOTE DATE OF SERVICE: 10/21/2020 REASON FOR FOLLOWUP: MSSA bacteremia, source likely pneumonia. INTERVAL HISTORY: Patient is currently afebrile. The patient is hemodynamically stable. FiO2 is currently stable. Minimal yellow secretions through the ET reported by nursing staff. No diarrhea has been reported. Just took off the pressors. The patient is currently in the process of weaning from the vent. PHYSICAL EXAMINATION: Her blood pressure 122/72 with a pulse of 83, temperature 98. She is 100% on 35% FiO2. General description is an elderly female intubated on the vent. Respiratory system: Unlabored breathing, decreased breath sounds at the base. No wheeze. HEART: S1, S2. Regular rate and rhythm. ABDOMEN: Soft, no tenderness. EXTREMITIES: No edema of the feet. LABS: Hemoglobin is 13.1, white count 9.6, BUN of 63, creatinine is 1.82. DIAGNOSTIC IMPRESSION AND PLAN: Patient with MSSA bacteremia source possible pneumonia repeat blood culture has been negative. Patient is covered with cefazolin to continue while monitoring clinical course closely. Continue supportive care. MMODL / IJN: [id number] /
[2020-10-21 17:57] LABS: Glucose,Whole Blood 115 mg/dL (75-99)
[2020-10-21 17:59] LABS: HCT 29.1 % (34.0-46.0); MCHC 32.3 g/dL (31.0-37.0); MCV 96.1 fL (80.0-100.0); Mean Platelet Volume 10.7; RBC 3.03 m/uL (3.80-5.40); RDW 14.7 % (11.5-15.5); WBC 8.3 k/uL (3.8-10.6)
[2020-10-21 18:03] LABS: HGB 9.4 gm/dL (11.4-16.0)
[2020-10-21 18:15] LABS: Platelet Count 63 k/uL (150-450)
[2020-10-21 20:07] LABS: Glucose,Whole Blood 234 mg/dL (75-99)
[2020-10-21] MEDS ORDERED: INSULIN DETEMIR (LEVEMIR) 100 UNIT/ML SYR SQ SCH (21:00)
[2020-10-22 00:24] LABS: Glucose,Whole Blood 226 mg/dL (75-99)
[2020-10-22] MEDS: INSULIN ASPART (NovoLOG) 100 UNIT/ML VIAL SQ SCH ×6 (00:31→20:16)
[2020-10-22 00:35] LABS: HCT 35.1 % (34.0-46.0); HGB 11.8 gm/dL (11.4-16.0); MCH 32.1 pg (25.0-35.0); MCHC 33.6 g/dL (31.0-37.0); MCV 95.5 fL (80.0-100.0); Mean Platelet Volume 9.8; Platelet Count 76 k/uL (150-450); RBC 3.68 m/uL (3.80-5.40); RDW 14.8 % (11.5-15.5); WBC 11.4 k/uL (3.8-10.6)
[2020-10-22 01:04] LABS: Magnesium 1.9 mg/dL (1.6-2.3); Potassium 3.5 mmol/L (3.5-5.1)
[2020-10-22] MEDS: POTASSIUM BICARBONATE/CIT AC 20 MEQ TABLET.EFF NG-TUBE SCH ×5 (01:38→15:54)
[2020-10-22] MEDS: MAGNESIUM SULFATE-D5W PMX 1 GM in DEXTROSE/WATER 1 100ML.BAG IVPB SCH ×2 (01:38→03:02)
[2020-10-22] MEDS: HEPARIN SOD,PORK IN 0.45% NACL 25,000 UNIT in 0.45% NACL 1 250ML.BAG IV SCH (03:23)
[2020-10-22 04:17] LABS: Glucose,Whole Blood 247 mg/dL (75-99)
[2020-10-22 04:54] LABS: ABG Base Excess 4.9 mmol/L; ABG HCO3 28 mmol/L (21-25); ABG Oxygen Saturation 98.5 % (94-97); ABG PCO2 36 mmHg (35-45); ABG PO2 122 mmHg (83-108); ABG TCO2 29 mmol/L (19-24); Allen Test Performed? Yes
[2020-10-22] MEDS: LEVOTHYROXINE 88 MCG TAB PO SCH (06:27)
[2020-10-22] MEDS: INSULIN DETEMIR (LEVEMIR) 100 UNIT/ML SYR SQ SCH ×2 (06:27→21:30)
[2020-10-22 06:36] LABS: INR 1.4 (<1.2); Prothrombin Time 13.9 sec (9.0-12.0)
[2020-10-22] MEDS: HEPARIN SODIUM 1,000 UN/ML (10ML VL) IV PRN ×2 (06:41→15:09)
[2020-10-22 06:42] LABS: Albumin 2.1 g/dL (3.5-5.0); Calcium 7.6 mg/dL (8.4-10.2); Potassium 3.6 mmol/L (3.5-5.1); Total Bilirubin 1.1 mg/dL (0.2-1.3); Total Protein 4.7 g/dL (6.3-8.2)
[2020-10-22 06:56] LABS: Basophils % (A) 0 %; Eosinophils % (A) 1 %; HCT 40.1 % (34.0-46.0); HGB 12.5 gm/dL (11.4-16.0); Lymphocytes # (A) 0.6 k/uL (1.0-4.8); Lymphocytes % (A) 8 %; MCHC 31.1 g/dL (31.0-37.0); MCV 96.7 fL (80.0-100.0); Mean Platelet Volume 11.5; Monocytes # (A) 0.5 k/uL (0-1.0); Monocytes % (A) 8 %; Neutrophils # (A) 5.8 k/uL (1.3-7.7); Neutrophils % (A) 82 %; Platelet Count 67 k/uL (150-450); RBC 4.15 m/uL (3.80-5.40); RDW 15.2 % (11.5-15.5); WBC 7.1 k/uL (3.8-10.6)
--- NOTE | 2020-10-22 07:09 | XR ---
EXAMINATION TYPE: XR chest 1V portable DATE OF EXAM: 10/22/2020 COMPARISON: 10/21/2020 HISTORY: tube placement TECHNIQUE: Single frontal view of the chest is obtained. FINDINGS: Lines and tubes are in unchanged positions. There is stable elevation of the left hemidiaphragm with left basilar opacity. Right lung is grossly clear. Postoperative changes overlie the cardiac silhouette. IMPRESSION: No significant change since the prior exam.
[2020-10-22] MEDS ORDERED: FUROSEMIDE 10 MG/ML 4 ML VIAL IV STA (09:00)
--- NOTE | 2020-10-22 09:21 | P.PN ---
Subjective Progress Note Date: 10/22/20 75-year-old female patient known history of non-small cell lung cancer locally advanced stage III be treated with a combination of chemoradiation therapy with favorable response. The patient was considered for surgical resection and was able to be nonsurgical due to borderline lung function and location of the tumor. The patient had an FEV1 of 60% of predicted. The patient was started with the immunotherapy for a while. She also has history of CHF with an ejection fraction of 3035% with global hypokinesis, CAD with previous bypass surgery in 2005 and previous non-STEMI and diabetes mellitus. The patient came into the emergency department yesterday because of altered mental status and body aches and pains at home. The patient was initially tachycardic with a heart rate of 117. The blood work showed a white cell count of 11.7, sodium was 131 with a potassium level of 5.3 and a serum bicarb of 14 with anion gap of 17. BUN was 55 with a creatinine of 2.3. Glucose was 47. Lactic acid level was 3.8 and a magnesium of 1.8 and troponin of 0.9 initially and it maxed out at 1.2 suggestive an acute non-STEMI.. UA was negative. COVID-19 testing was negative. The lactic acid level was as high as 7.5. Chest x-ray was consistent with a left suprahilar mass and a small left-sided pleural effusion. The patient was running a temperature of 99.5. She was complaining of shortness of breath. Her chest x-ray also showed a moderate-sized left-sided pleural effusion along with some volume loss in the left suprahilar mass. The patient has not received any treatment regarding her malignancy for the past few years. Most recent PET/CT from 08/21/2020 showed no areas of new metabolic activity to suggest recurrent tumor. There was small to moderate-sized left-sided pleural effusion that had shown some increased interval size compared to earlier PET/CT. This morning, the patient is calm and comfortable. No signs of any major respiratory distress. She remained in 100% nonrebreather facemask and her pulse ox is in the order of 95-99%. She didn't use the BiPAP overnight depression of 12/6 with an FiO2 of 50%. She was given a total of 4 L of IV fluids overnight. Urine output in order of 10 mL an hour. CAT scan of the abdomen and pelvis was completed and showed lateral pleural effusions along with cardiomegaly. No acute intra-abdominal pathology. Her morning INR is at 4.9. She is on insulin drip running at 1.12 units hour. After being given 4 L of IV fluid, the patient continued to be running some low blood pressure. She is also on norepinephrine infusion this morning at a dose of 0.16 mcg/kg per minute. Most recent blood pressure is 120/51. She has an arterial radial line on the right. No tachycardia. She is currently in normal sinus rhythm. 10/20/2020, the patient is being seen in follow-up in the intensive care unit. Events from yesterday were noted. After my morning evaluation, I reevaluated this patient and ICU at around 3:00 in the afternoon. The patient was becoming progressively more septic. She was becoming progressively more acidotic, tachypneic, tachycardic, hypotensive, urine output was low and the patient was very much cold and clammy. Her lactic acid level was also on the rise. Based on that, I inserted a triple lumen catheter and was started fluid resuscitation. We also intubated the patient with on a mechanical ventilator. The patient's subsequent return agent airport to have positive blood cultures with MSSA. IDs aware and the patient was started on IV cefazolin. 2 cultures of the blood are positive. This morning, the patient is sedated with propofol and probably was running at 30 mcg/kg per minute and the patient is calm and comfortable. She is intubated on a mechanical ventilator. She is an assist-control mode at the rate of 32 with a tidal volume of 500 and FiO2 of 35% with a PEEP of 5. Chest x-ray showing some atelectatic changes/effusion the left lung base. Right lung essentially clear. ET tube is in a good location and the patient has a triple lumen catheter in the left subclavian. No significant orotracheal secretions. She is quite success with the mechanical ventilator. She is able to generate a minute ventilation of 16.3 L with a peak airway pressure of around 26. Hemodynamically, the patient was given a total of 6 L of IV fluid bolus. She was also on a bicarb infusion initially at a dose of 100 mL an hour and currently she is at 50 mL an hour. Urine output has improved and the patient is producing urine output in the order of 75 mL an hour. Also, she remains on pressors. Norepinephrine infusion is running at 0.05 mcg/kg per minute. Insulin drip is also at 1.5 units an hour. On her labs, acid peaked at 10 and the most recent lactic acid level is at 3.4. The serum bicarb from this morning is at 16. Her BUN is at 64 with a creatinine of 2.4. Creatinine peaked at 3.46 and this is from yesterday noontime. She does have a component of shock liver and the LFTs are also abnormal with an AST of 1367 and ALP of 284. Bilirubin is at 1.5. The white cell count today is at 9.6 with a hemoglobin of 12.3. Platelet count has dropped to 102 pro-calcitonin level is up to 16.1. Serum cortisol was at 95 and no hydrocortisone was given. Troponins were also positive and a peaked at 1.2. Cardiac cardiac rhythm is atrial fibrillation with a controlled rate. 10/21/2020, I'm seeing the patient for a follow-up. She has done good progress and the patient septic shock was treated with antibiotics with IV cefazolin. Repeat blood cultures been negative. Patient was found to have MSSA in the blood. In general, she is doing better. Her lactic acid levels have improved. Hemodynamics improved and she is on minimal amount of pressors at this point in time and urine output is also improved. The patient this morning is sedated with propofol which is running at 15 mcg/kg per minute. She is on a mechanical ventilator with an assist-control mode at the rate of 20 with a tidal volume of 500 and FiO2 of 35% with a PEEP of 5. Blood gases from today is showing a pH of 7.52 with a pCO2 of 31 and pO2 of 130. Chest x-ray is unchanged and the patient has a left perihilar opacity consistent with non-small cell lung cancer in addition to chronic left-sided pleural effusion and some elevation of the left hemidiaphragm. Her DKA has completely recovered and the patient is currently off insulin drip and she is on Levemir insulin for blood sugar control. The patient is on IV cefazolin for her underlying MSSA septic shock. Shock liver is improving. Kidney injury is improving. Creatinine is down to 1.8. Pressors requirements have improved. No other significant issues otherwise. We are the process of getting this patient a sedation holiday and assess her underlying mental status and readiness to wean.\ 10/22/2020, I'm seeing this patient for a follow-up in the intensive care unit. The patient is a case of septic shock with multisystem organ failure and respi ratory failure. The patient has improved considerably. Cultures of the blood was positive for MSSA and patient is currently on IV cefazolin. Repeat cultures of been negative. Hemodynamically improved and she is currently off pressors. Acute kidney injury is also improving. In terms of sedation, the patient was given a sedation holiday and she was very slow to recover. It took her till late in the evening to demonstrate some neurologic recovery and based on that no weaning was done. The patient was placed back on sedation and earlier this morning she was taken off sedation and this morning she is following some simple commands and answering questions appropriately. She is extremely weak. She is on a mechanical ventilator patient is an assist-control mode with a rate of 12 with a tidal volume of 450 and FiO2 of 35% with a PEEP of 5. Blood gases showed a pH of 7.5 with a pCO2 of 36 and pO2 122. She remains in atrial fibrillation. She is on IV heparin. INR is down to 1.4 and the PT he is at 41. Hemoglobin is at 12.5. White cell count is at 7.1. Chest x-ray is not showing any interval change. The patient was given a dose of Lasix by cardiology yesterday. Creatinine is improving and is currently down to 1.26. Objective - Vital Signs Vital signs: Vital Signs Temp 98.7 F 10/22/20 04:00 Pulse 96 10/22/20 07:00 Resp 24 10/22/20 07:00 BP 129/80 10/22/20 07:00 Pulse Ox 100 10/22/20 07:00 Intake & Output 10/21/20 10/22/20 10/22/20 18:59 06:59 18:59 Intake Total 7552.141 9285.381 118.313 Output Total 930 640 55 Balance 203.725 810.381 63.313 Weight 105.3 kg 107.4 kg Intake: IV 896 462 26 0.9 @20mL/hr 330 190 20 0.9 pressure bag 30 72 6 A-Line Pressure Bag 18 CVP 18 Dextrose 5% in Water 1, 100 000 ml @ 50 mls/hr IV . Q23H [facility] with Sodium Bicarb (1 Meq/ml) 150 ml Rx#:[id number] Magnesium Sulfate-D5w Pmx 200 200 1 gm In Dextrose/Water 1 100ml.bag @ 100 mls/hr IVPB Q1H [facility] Rx#: [id number] Sodium Chloride 0.9% 1, 200 000 ml @ 50 mls/hr IV . Q20H [facility] Rx#:[id number] Intake, IV Titration 207.725 414.381 48.313 Amount Heparin Sod,Pork in 0.45% 76.933 94.597 NaCl 25,000 unit In 0.45 % NaCl 1 250ml.bag @ 9.5 UNITS/KG/HR 10.013 mls/hr IV .Q24H [facility] Rx#: [id number] Norepinephrine 8 mg In 37.618 78.647 48.313 Sodium Chloride 0.9% 250 ml @ 0.25 MCG/KG/MIN 46. 101 mls/hr IV .Q5H36M [facility] Rx#:[id number] ceFAZolin 2 gm In Sodium 50 Chloride 0.9% 50 ml @ 100 mls/hr IVPB Q12HR [facility] Rx #:[id number] propofoL 1,000 mg In 93.174 191.137 Empty Bag 1 bag @ Titrate IV .Q0M [facility] Rx#: [id number] Tube Feeding 30 484 44 Other 90 Output: Urine 930 640 55 Other: Voiding Method Indwelling Catheter Indwelling Catheter ABP, PAP, CO, CI - Last Documented Arterial Blood Pressure 119/54 - Exam Gen. appearance, comfortable no acute distress.appearance, comfortable, the patient remains on a mechanical ventilator. The patient is currently receiving a sedation holiday. Orogastric and orotracheal tube are both in place. Head exam was generally normal. There was no scleral icterus or corneal arcus. Mucous membranes were moist. Neck was supple and without jugular venous distension, thyromegaly, or carotid bruits. Carotids were easily palpable bilaterally. There was no adenopathy. Lungs were clear to auscultation and percussion, and with normal diaphragmatic excursion. No wheezes or rales were noted. Cardiac exam revealed the PMI to be normally situated and sized. The rhythm was regular and no extrasystoles were noted during several minutes of auscultation. The first and second heart sounds were normal and physiologic splitting of the second heart sound was noted. There were no murmurs, rubs, clicks, or gallops. Abdominal exam revealed normal bowel sounds. The abdomen was soft, non-tender, and without masses, organomegaly, or appreciable enlargement of the abdominal aorta. Examination of the extremities revealed easily palpable radial, femoral and pedal pulses. There was no cyanosis, clubbing or edema. Examination of the skin revealed no evidence of significant rashes, suspicious appearing nevi or other concerning lesions. Neurologically, the patient is being evaluated neurologically. She opens up her eyes spontaneously. She is following some simple commands patient is still lethargic. Motor function is still weak in all 4 extremities and the patient is still demonstrating global weakness. - Labs CBC & Chem 7: 10/22/20 05:50 10/22/20 05:50 Labs: Abnormal Lab Results - Last 24 Hours (Table) 10/21/20 10/21/20 10/21/20 Range/Units 10:00 12:07 17:52 WBC (3.8-10.6) k/uL RBC (3.80-5.40) m/uL Hgb (11.4-16.0) gm/dL Hct (34.0-46.0) % Plt Count (150-450) k/uL Lymphocytes # (1.0-4.8) k/uL PT 13.8 H (9.0-12.0) sec INR 1.4 H (<1.2) APTT (22.0-30.0) sec ABG pH (7.35-7.45) ABG pO2 (83-108) mmHg ABG HCO3 (21-25) mmol/L ABG Total CO2 (19-24) mmol/L ABG O2 Saturation (94-97) % BUN (7-17) mg/dL Creatinine (0.52-1.04) mg/dL Glucose (74-99) mg/dL POC Glucose (mg/dL) 257 H 115 H (75-99) mg/dL Calcium (8.4-10.2) mg/dL AST (14-36) U/L ALT (4-34) U/L Alkaline Phosphatase (38-126) U/L Total Protein (6.3-8.2) g/dL Albumin (3.5-5.0) g/dL 10/21/20 10/21/20 10/21/20 Range/Units 17:56 17:56 20:05 WBC (3.8-10.6) k/uL RBC 3.03 L (3.80-5.40) m/uL Hgb 9.4 L D (11.4-16.0) gm/dL Hct 29.1 L (34.0-46.0) % Plt Count 63 L (150-450) k/uL Lymphocytes # (1.0-4.8) k/uL PT (9.0-12.0) sec INR (<1.2) APTT 68.6 H (22.0-30.0) sec ABG pH (7.35-7.45) ABG pO2 (83-108) mmHg ABG HCO3 (21-25) mmol/L ABG Total CO2 (19-24) mmol/L ABG O2 Saturation (94-97) % BUN (7-17) mg/dL Creatinine (0.52-1.04) mg/dL Glucose (74-99) mg/dL POC Glucose (mg/dL) 234 H (75-99) mg/dL Calcium (8.4-10.2) mg/dL AST (14-36) U/L ALT (4-34) U/L Alkaline Phosphatase (38-126) U/L Total Protein (6.3-8.2) g/dL Albumin (3.5-5.0) g/dL 10/22/20 10/22/20 10/22/20 Range/Units 00:10 00:10 00:21 WBC 11.4 H (3.8-10.6) k/uL RBC 3.68 L (3.80-5.40) m/uL Hgb (11.4-16.0) gm/dL Hct (34.0-46.0) % Plt Count 76 L (150-450) k/uL Lymphocytes # (1.0-4.8) k/uL PT (9.0-12.0) sec INR (<1.2) APTT 43.0 H (22.0-30.0) sec ABG pH (7.35-7.45) ABG pO2 (83-108) mmHg ABG HCO3 (21-25) mmol/L ABG Total CO2 (19-24) mmol/L ABG O2 Saturation (94-97) % BUN (7-17) mg/dL Creatinine (0.52-1.04) mg/dL Glucose (74-99) mg/dL POC Glucose (mg/dL) 226 H (75-99) mg/dL Calcium (8.4-10.2) mg/dL AST (14-36) U/L ALT (4-34) U/L Alkaline Phosphatase (38-126) U/L Total Protein (6.3-8.2) g/dL Albumin (3.5-5.0) g/dL 10/22/20 10/22/20 10/22/20 Range/Units 04:15 04:49 05:50 WBC (3.8-10.6) k/uL RBC (3.80-5.40) m/uL Hgb (11.4-16.0) gm/dL Hct (34.0-46.0) % Plt Count 67 L (150-450) k/uL Lymphocytes # 0.6 L (1.0-4.8) k/uL PT (9.0-12.0) sec INR (<1.2) APTT (22.0-30.0) sec ABG pH 7.50 H (7.35-7.45) ABG pO2 122 H (83-108) mmHg ABG HCO3 28 H (21-25) mmol/L ABG Total CO2 29 H (19-24) mmol/L ABG O2 Saturation 98.5 H (94-97) % BUN (7-17) mg/dL Creatinine (0.52-1.04) mg/dL Glucose (74-99) mg/dL POC Glucose (mg/dL) 247 H (75-99) mg/dL Calcium (8.4-10.2) mg/dL AST (14-36) U/L ALT (4-34) U/L Alkaline Phosphatase (38-126) U/L Total Protein (6.3-8.2) g/dL Albumin (3.5-5.0) g/dL 10/22/20 10/22/20 10/22/20 Range/Units 05:50 05:50 05:50 WBC (3.8-10.6) k/uL RBC (3.80-5.40) m/uL Hgb (11.4-16.0) gm/dL Hct (34.0-46.0) % Plt Count (150-450) k/uL Lymphocytes # (1.0-4.8) k/uL PT 13.9 H (9.0-12.0) sec INR 1.4 H (<1.2) APTT 41.0 H (22.0-30.0) sec ABG pH (7.35-7.45) ABG pO2 (83-108) mmHg ABG HCO3 (21-25) mmol/L ABG Total CO2 (19-24) mmol/L ABG O2 Saturation (94-97) % BUN 57 H (7-17) mg/dL Creatinine 1.26 H (0.52-1.04) mg/dL Glucose 217 H (74-99) mg/dL POC Glucose (mg/dL) (75-99) mg/dL Calcium 7.6 L (8.4-10.2) mg/dL AST 627 H (14-36) U/L ALT 107 H (4-34) U/L Alkaline Phosphatase 204 H (38-126) U/L Total Protein 4.7 L (6.3-8.2) g/dL Albumin 2.1 L (3.5-5.0) g/dL Microbiology - Last 24 Hours (Table) 10/20/20 04:00 Blood Culture - Preliminary Blood No Growth after 48 hours 10/20/20 11:31 Gram Stain - Preliminary Sputum Sputum Culture - Preliminary 10/20/20 10:00 Blood Culture - Preliminary Blood No Growth after 24 hours 10/20/20 10:00 Blood Culture - Preliminary Blood No Growth after 24 hours 10/19/20 10:00 Blood Culture - Preliminary Blood No Growth after 48 hours 10/18/20 08:30 Blood Culture Gram Stain - Final Blood Blood Culture - Final Staphylococcus aureus 10/18/20 08:15 Blood Culture Gram Stain - Final Blood Blood Culture - Final Staphylococcus aureus Assessment and Plan Plan: 1 septic shock secondary to staph aureus, MSSA and the patient is currently on IV cefazolin. The exact source is not clear. Could be pulmonary source involving the left lower lobe. Patient became significantly was undergone st able and hypotensive. Resuscitated aggressively with IV fluids. She was started on pressors and the patient continues to be acid dependent. Urine output is improved. Echocardiogram that showed impaired left ventricular ejection fraction of around 20% contributing to her shock. In any rate, the patient has recovered. The patient is currently on appropriate antibiotics. He was dynamically stable on no pressors. 2 diabetes mellitus with mild component of DKA order the patient was started on Levemir insulin for blood sugar control along with a sinus care coverage. On Levemir insulin his dose of 14 units daily at bedtime plus is sinus care coverage. Enterofeeding is currently on hold pending further weaning 3 severe metabolic acidosis and lactic acidosis secondary to above covered 4 hypotension, essentially secondary to septic shock with possibly a cardiogenic component as the patient has an ejection fraction of 20-25% on echocardiogram., Within the patient is currently off vasopressors 5 coronary artery disease with previous bypass surgery 6 abnormal troponin, consider non-STEMI, patient is free of any chest pain, could be sepsis induced troponin leaktroponin leak that 1.28, consider underlying mild component of non-STEMI. 7 paroxysmal atrial fibrillation , currently on IV heparin 8 non-small cell lung cancer, stage IIIB post chemoradiation therapy. Most rece nt PET scan from August 2020 was essentially within stable state and the patient had no significant metabolic activity noted to suggest tumor recurrence 9 bilateral pleural effusion more so on the left, slight increased in the size of the pleural effusion based on the most recent PET scan 10 acute shock liver, Improving on today's evaluation 11 Coumadin toxicity, without any signs of bleeding, recovered 12 acute kidney injury, improving 13 hypothermia, improving 14 CHF with an ejection fraction of 20-25% Plan The patient even another sedation holiday and we'll check her weaning parameters Assess candidacy for further weaning IV heparin No pressors Levemir insulin Repeat blood cultures of been negative Continue IV cefazolin We'll continue to follow Possible extubation today depending on her overall rest status and her ability to perform is point is breathing trial. Her condition is critical. This is a critically care evaluation was done and more than 30 minutes. Time with Patient: Greater than 30
[2020-10-22 09:28] LABS: Glucose,Whole Blood 158 mg/dL (75-99)
[2020-10-22] MEDS: PANTOPRAZOLE 40 MG/10 ML VIAL IVP SCH (09:59)
[2020-10-22] MEDS: ASPIRIN 81 MG PO SCH (10:00)
[2020-10-22] MEDS: CHLORHEXIDINE GLUCONATE 15 ML CUP MUCOUS MEM SCH (10:00)
[2020-10-22] MEDS: CLOPIDOGREL 75 MG TAB PO SCH (10:01)
[2020-10-22] MEDS: SODIUM CHLORIDE 0.9% 1,000 ML IV SCH (10:29)
[2020-10-22] MEDS: ISOSORBIDE MONONITRATE ER 30 MG TAB.ER.24H PO SCH (10:31)
[2020-10-22] MEDS: METOPROLOL SUCCINATE (ER) 100 MG TAB.ER.24H PO SCH (10:31)
[2020-10-22 11:45] LABS: Glucose,Whole Blood 131 mg/dL (75-99)
--- NOTE | 2020-10-22 12:02 | PN ---
PROGRESS NOTE Patient is seen for followup for acute kidney injury. Her renal function has improved significantly. This morning patient remains on the vent, but she is awake, following commands. PHYSICAL EXAMINATION: Blood pressure is 110/59, heart rate 92 per minute, she is afebrile. Examination of the heart S1, S2. Examination of the lungs, bilateral breath sounds are heard. Abdomen is soft, nontender. Examination of lower extremities shows no significant edema. NEWS ASSIGNMENT EDITOR exam shows patient is following commands. She remains on the vent though. LABS: Show sodium 140, potassium 3.6, chloride 107, BUN 57, serum creatinine 1.26, hemoglobin 12.5 g/dL. ASSESSMENT: 1. Acute kidney injury, acute tubular necrosis, currently significantly improved. Patient is nonoliguric. I will discontinue the IV fluids. Okay to give one time dose of Lasix. 2. Mild volume overload. Discontinue IV fluids. 3. Sepsis with Staph aureus bacteremia, MSSA, maintained on antibiotics with repeat blood cultures all being negative. 4. Acute hypoxic respiratory failure secondary to sepsis. 5. Diabetic ketoacidosis, now resolved. 6. Metabolic acidosis secondary to diabetic ketoacidosis, lactic acidosis and renal failure. Now improved. 7. History of [id number] lung cancer status post chemo radiation therapy. PLAN: Discontinue IV fluids. Okay to give one time dose of Lasix. Repeat labs in a.m. Continue to avoid nephrotoxic medications. MMODL / IJN: [id number] /
--- NOTE | 2020-10-22 14:24 | P.PN ---
Subjective HISTORY OF PRESENTING ILLNESS This is a pleasant 75-year-old female past medical history significant for hypertension, coronary artery disease status post bypass grafting and high risk PCI of the left main and LAD, ischemic cardiomyopathy, chronic systolic heart failure, dyslipidemia, diabetes mellitus and paroxysmal atrial fibrillation. She follows in the office with Dr. Villarreal. We have been asked to see in consultation for elevated troponin. She presented to the hospital with generalized weakness and elevated blood sugar. She also was complaining of intermittently having a fever with associated body aches. She denies having any chest pain or shortness of breath. She has had no palpitations or dizziness. She was found to have positive blood cultures with gram-positive cocci. She is currently being treated with IV antibiotics awaiting infectious disease evaluation. Most recent echocardiogram obtained December 2019 revealed impaired LV systolic function with ejection fraction 40%, grade 3 diastolic dysfunction, severely dilated left atrium, moderate aortic regurgitation, mild mitral regurgitation, [id number] tricuspid regurgitation and mild pulmonary hypertension. Most recent cardiac catheterization performed in November 2019 she underwent orbital arthrectomy and stenting of the left main with Impella support at [facility]. 10/20/2020 Patient was seen and examined in the intensive care unit maintained on mechanical ventilation. She was unable to be extubated yesterday due to decreased mentation. Blood pressure 122/55 heart rate 89 afebrile and maintaining oxygen saturation on mechanical ventilator. Chest xray reviewed, reveals left basilar opacity. Laboratory data reviewed, WBC 7.1, hgb 12.5, plt 67, INR 1.4, pH 7.5, PO2 122, sodium 140, potassium 3.6, creatinine 1.26 and magnesium 1.9. 24 hours urine output 1570 ml. Her weight has increased by 2 kg. PHYSICAL EXAMINATION CONSTITUTIONAL: No apparent distress. HEENT: Head is normocephalic. Pupils are equal, round. Sclerae anicteric. Mucous membranes of the mouth are moist. No JVD. Bilateral carotid bruit. CHEST EXAMINATION: Lungs are clear to auscultation. No chest wall tenderness is noted on palpation or with deep breathing. HEART EXAMINATION: Irregular rate and rhythm. S1, S2 heard. Systolic ejection murmur at the base, no gallops or rub. EXTREMITIES: 2+ peripheral pulses, bilateral lower extremity 1+ pitting edema and no calf tenderness. ASSESSMENT Bacteremia, MSSA Sepsis with septic shock Acute kidney injury Lactic acidosis Troponin elevation secondary to renal function and sepsis not primary myocardial injury Coagulopathy Transaminitis Hypokalemia Hypomagnesemia Thrombocytopenia, worsening Coronary artery disease s/p bypass grafting and high risk left main PCI Chronic systolic and diastolic heart failure, clinically euvolemic Ischemic cardiomyopathy Hypertension Paroxysmal atrial fibrillation on warfarin, went into afib 10/19. Rates are controlled today. Dyslipidemia History of lung cancer PLAN Give one dose of IV lasix 40 mg now. Repeat platelet count, if continues to drop we will hold heparin infusion. Critical care team plans for possible vent weaning trial again today. We will continue to provide supportive care. Further recommendations to follow. Nurse Practitioner note has been reviewed, I agree with a documented findings and plan of care. Patient was seen and examined. Objective - Vital Signs Vital signs: Vital Signs Temp 99.2 F 10/22/20 08:00 Pulse 89 10/22/20 09:00 Resp 24 10/22/20 09:00 BP 116/74 10/22/20 08:30 Pulse Ox 100 10/22/20 09:00 Intake & Output 10/21/20 10/22/20 10/22/20 18:59 06:59 18:59 Intake Total 6202.850 8208.381 382.313 Output Total 930 640 135 Balance 203.725 810.381 247.313 Weight 105.3 kg 107.4 kg Intake: IV 896 462 172 0.9 @20mL/hr 330 190 60 0.9 pressure bag 30 72 12 A-Line Pressure Bag 18 CVP 18 Dextrose 5% in Water 1, 100 000 ml @ 50 mls/hr IV . Q23H [facility] with Sodium Bicarb (1 Meq/ml) 150 ml Rx#:[id number] Magnesium Sulfate-D5w Pmx 200 200 1 gm In Dextrose/Water 1 100ml.bag @ 100 mls/hr IVPB Q1H [facility] Rx#: [id number] Sodium Chloride 0.9% 1, 200 100 000 ml @ 50 mls/hr IV . Q20H [facility] Rx#:[id number] Intake, IV Titration 207.725 414.381 48.313 Amount Heparin Sod,Pork in 0.45% 76.933 94.597 NaCl 25,000 unit In 0.45 % NaCl 1 250ml.bag @ 9.5 UNITS/KG/HR 10.013 mls/hr IV .Q24H [facility] Rx#: [id number] Norepinephrine 8 mg In 37.618 78.647 48.313 Sodium Chloride 0.9% 250 ml @ 0.25 MCG/KG/MIN 46. 101 mls/hr IV .Q5H36M [facility] Rx#:[id number] ceFAZolin 2 gm In Sodium 50 Chloride 0.9% 50 ml @ 100 mls/hr IVPB Q12HR [facility] Rx #:[id number] propofoL 1,000 mg In 93.174 191.137 Empty Bag 1 bag @ Titrate IV .Q0M [facility] Rx#: [id number] Tube Feeding 30 484 132 Other 90 30 Output: Urine 930 640 135 Other: Voiding Method Indwelling Catheter Indwelling Catheter Indwelling Catheter ABP, PAP, CO, CI - Last Documented Arterial Blood Pressure 122/55 - Labs CBC & Chem 7: 10/22/20 05:50 10/22/20 05:50 Labs: Abnormal Lab Results - Last 24 Hours (Table) 10/21/20 10/21/20 10/21/20 Range/Units 10:00 12:07 17:52 WBC (3.8-10.6) k/uL RBC (3.80-5.40) m/uL Hgb (11.4-16.0) gm/dL Hct (34.0-46.0) % Plt Count (150-450) k/uL Lymphocytes # (1.0-4.8) k/uL PT 13.8 H (9.0-12.0) sec INR 1.4 H (<1.2) APTT (22.0-30.0) sec ABG pH (7.35-7.45) ABG pO2 (83-108) mmHg ABG HCO3 (21-25) mmol/L ABG Total CO2 (19-24) mmol/L ABG O2 Saturation (94-97) % BUN (7-17) mg/dL Creatinine (0.52-1.04) mg/dL Glucose (74-99) mg/dL POC Glucose (mg/dL) 257 H 115 H (75-99) mg/dL Calcium (8.4-10.2) mg/dL AST (14-36) U/L ALT (4-34) U/L Alkaline Phosphatase (38-126) U/L Total Protein (6.3-8.2) g/dL Albumin (3.5-5.0) g/dL 10/21/20 10/21/20 10/21/20 Range/Units 17:56 17:56 20:05 WBC (3.8-10.6) k/uL RBC 3.03 L (3.80-5.40) m/uL Hgb 9.4 L D (11.4-16.0) gm/dL Hct 29.1 L (34.0-46.0) % Plt Count 63 L (150-450) k/uL Lymphocytes # (1.0-4.8) k/uL PT (9.0-12.0) sec INR (<1.2) APTT 68.6 H (22.0-30.0) sec ABG pH (7.35-7.45) ABG pO2 (83-108) mmHg ABG HCO3 (21-25) mmol/L ABG Total CO2 (19-24) mmol/L ABG O2 Saturation (94-97) % BUN (7-17) mg/dL Creatinine (0.52-1.04) mg/dL Glucose (74-99) mg/dL POC Glucose (mg/dL) 234 H (75-99) mg/dL Calcium (8.4-10.2) mg/dL AST (14-36) U/L ALT (4-34) U/L Alkaline Phosphatase (38-126) U/L Total Protein (6.3-8.2) g/dL Albumin (3.5-5.0) g/dL 10/22/20 10/22/20 10/22/20 Range/Units 00:10 00:10 00:21 WBC 11.4 H (3.8-10.6) k/uL RBC 3.68 L (3.80-5.40) m/uL Hgb (11.4-16.0) gm/dL Hct (34.0-46.0) % Plt Count 76 L (150-450) k/uL Lymphocytes # (1.0-4.8) k/uL PT (9.0-12.0) sec INR (<1.2) APTT 43.0 H (22.0-30.0) sec ABG pH (7.35-7.45) ABG pO2 (83-108) mmHg ABG HCO3 (21-25) mmol/L ABG Total CO2 (19-24) mmol/L ABG O2 Saturation (94-97) % BUN (7-17) mg/dL Creatinine (0.52-1.04) mg/dL Glucose (74-99) mg/dL POC Glucose (mg/dL) 226 H (75-99) mg/dL Calcium (8.4-10.2) mg/dL AST (14-36) U/L ALT (4-34) U/L Alkaline Phosphatase (38-126) U/L Total Protein (6.3-8.2) g/dL Albumin (3.5-5.0) g/dL 10/22/20 10/22/20 10/22/20 Range/Units 04:15 04:49 05:50 WBC (3.8-10.6) k/uL RBC (3.80-5.40) m/uL Hgb (11.4-16.0) gm/dL Hct (34.0-46.0) % Plt Count 67 L (150-450) k/uL Lymphocytes # 0.6 L (1.0-4.8) k/uL PT (9.0-12.0) sec INR (<1.2) APTT (22.0-30.0) sec ABG pH 7.50 H (7.35-7.45) ABG pO2 122 H (83-108) mmHg ABG HCO3 28 H (21-25) mmol/L ABG Total CO2 29 H (19-24) mmol/L ABG O2 Saturation 98.5 H (94-97) % BUN (7-17) mg/dL Creatinine (0.52-1.04) mg/dL Glucose (74-99) mg/dL POC Glucose (mg/dL) 247 H (75-99) mg/dL Calcium (8.4-10.2) mg/dL AST (14-36) U/L ALT (4-34) U/L Alkaline Phosphatase (38-126) U/L Total Protein (6.3-8.2) g/dL Albumin (3.5-5.0) g/dL 10/22/20 10/22/20 10/22/20 Range/Units 05:50 05:50 05:50 WBC (3.8-10.6) k/uL RBC (3.80-5.40) m/uL Hgb (11.4-16.0) gm/dL Hct (34.0-46.0) % Plt Count (150-450) k/uL Lymphocytes # (1.0-4.8) k/uL PT 13.9 H (9.0-12.0) sec INR 1.4 H (<1.2) APTT 41.0 H (22.0-30.0) sec ABG pH (7.35-7.45) ABG pO2 (83-108) mmHg ABG HCO3 (21-25) mmol/L ABG Total CO2 (19-24) mmol/L ABG O2 Saturation (94-97) % BUN 57 H (7-17) mg/dL Creatinine 1.26 H (0.52-1.04) mg/dL Glucose 217 H (74-99) mg/dL POC Glucose (mg/dL) (75-99) mg/dL Calcium 7.6 L (8.4-10.2) mg/dL AST 627 H (14-36) U/L ALT 107 H (4-34) U/L Alkaline Phosphatase 204 H (38-126) U/L Total Protein 4.7 L (6.3-8.2) g/dL Albumin 2.1 L (3.5-5.0) g/dL 10/22/20 Range/Units 09:27 WBC (3.8-10.6) k/uL RBC (3.80-5.40) m/uL Hgb (11.4-16.0) gm/dL Hct (34.0-46.0) % Plt Count (150-450) k/uL Lymphocytes # (1.0-4.8) k/uL PT (9.0-12.0) sec INR (<1.2) APTT (22.0-30.0) sec ABG pH (7.35-7.45) ABG pO2 (83-108) mmHg ABG HCO3 (21-25) mmol/L ABG Total CO2 (19-24) mmol/L ABG O2 Saturation (94-97) % BUN (7-17) mg/dL Creatinine (0.52-1.04) mg/dL Glucose (74-99) mg/dL POC Glucose (mg/dL) 158 H (75-99) mg/dL Calcium (8.4-10.2) mg/dL AST (14-36) U/L ALT (4-34) U/L Alkaline Phosphatase (38-126) U/L Total Protein (6.3-8.2) g/dL Albumin (3.5-5.0) g/dL Microbiology - Last 24 Hours (Table) 10/18/20 08:30 Blood Culture Gram Stain - Final Blood Blood Culture - Final Staphylococcus aureus 10/18/20 08:15 Blood Culture Gram Stain - Final Blood Blood Culture - Final Staphylococcus aureus 10/20/20 04:00 Blood Culture - Preliminary Blood No Growth after 48 hours 10/20/20 11:31 Gram Stain - Preliminary Sputum Sputum Culture - Preliminary 10/20/20 10:00 Blood Culture - Preliminary Blood No Growth after 24 hours 10/20/20 10:00 Blood Culture - Preliminary Blood No Growth after 24 hours 10/19/20 10:00 Blood Culture - Preliminary Blood No Growth after 48 hours
[2020-10-22 15:16] LABS: Hemoglobin A1C 8.7 % (4.0-6.0)
[2020-10-22] MEDS: NOREPINEPHRINE 8 MG in SODIUM CHLORIDE 0.9% 250 ML IV SCH ×4 (15:46→20:15)
[2020-10-22] MEDS ORDERED: POTASSIUM CHLORIDE 20 MEQ in WATER FOR INJECTION 1 100ML.BAG IVPB STA (15:58)
[2020-10-22 16:02] LABS: Glucose,Whole Blood 73 mg/dL (75-99)
--- NOTE | 2020-10-22 16:07 | P.PN ---
Subjective Progress Note Date: 10/22/20 (delayed charting seen at 0945) Principal diagnosis: muscle cramps Patient is a 75-year-old female with left-sided lung cancer diagnosed in 2018 recent negative/CT, diabetes mellitus type 2 insulin requiring, coronary artery disease status post PCI and ultimately coronary artery bypass grafting, dyslipidemia, hypertension, and thyroid disorder who presented to the ER secondary to fevers. On arrival to the ER she was slightly tachycardic with pulse of 117. Initial laboratory evaluation showed white blood cell count 11.7, sodium 131, potassium 5.3, carbon dioxide 14, anion gap 17, BUN 55, creatinine 2.3, glucose 410, lactic acid 3.8, magnesium 1.4, and troponin 0.960. Urinalysis was not consistent with urinary tract infection. COVID-19 Testing was negative. Chest x-ray consistent with known left suprahilar neoplasm and small left pleural effusion. In the ER she was given a dose of Tylenol, Rocephin, magnesium and IV fluids. She then became hypotensive and had increasing shortness of breath. She was given IV fluids started on BiPAP. In transit to the ICU. She was started on vancomycin and cefepime. She required intubation on 10/19. She was ultimately found to have MSSA bacteremia. She did have an echocardiogram that showed ejection fraction 20-25%. CT abdomen and pelvis showed no acute process within the abdomen and pelvis. She is followed by critical care, infectious disease, cardiology, and nephrology. Patient seen and examined at bedside. Awake on vent, following commands, shakes head no to pain General: ill appearing, mild distress, appears at stated age Derm: warm, dry Head: atraumatic, normocephalic, symmetric Eyes: EOMI, no lid lag, anicteric sclera Mouth: no lip lesion, mucus membranes moist Cardiovascular: S1S2 reg, no murmur, positive posterior tibial pulse bilateral, Lungs: course bs bilateral, no rhonchi, no rales , no accessory muscle use Abdominal: soft, nontender to palpation, no guarding, no appreciable or ganomegaly Ext: no gross muscle atrophy, trace edema, no contractures Neuro: Sedated on vent Psych: Sedated on vent MSSA Bacteremia with sepsis, possible left lower lobe pneumonia, Acute hypoxic respiratory failure - continue with cefazolin - off vasopressors on AM 10/22 - ID recs appreciated - Critical care recs appreciated - flu, RSV, COVID, UA negative - procalcitonin elevated, down trending CARSON -IV fluids completed, lasix X 1 today -Nephro recs appreciated; off Bicarb gtt -Hold Aldactone and Cozaar -Avoid additional nephrotoxic agents Shock liver, due to sepsis - avoid hepato toxic agents - supportive care Hyperglycemia with a anion gap metabolic acidosis - A1C 8.7 - Continue with sliding scale insulin - long acting insulin decreased due to NPO status NSTEMI, TYPE 2- history of coronary artery disease status post CABG -Continue to follow troponins, maybe secondary to CARSON -Aspirin - Lipitor - BB - cardio recs Paroxysmal atrial fibrillation with Coumadin use -Continue current medications -Follow telemetry - heparin gtt as coumadin below 2 Systolic congestive heart failure without exacerbation -Ejection fraction 20-25% -Hold Cozaar, continue to hold beta lucila -Monitor closely with need for IV fluid resuscitation -Telemetry -Daily weights -Cardiology recommendations Thrombocytopenia chronic near baseline, worsening on heparin gtt monitor closely - follow CBC Lactic acidosis, resolved Lung cancer in remission, NSS Metabolic acidosis hyperkalemia, resolved hyponatremia, resolved DKA resolved DVT prophylaxis: heparin gtt Anticipated discharge date: in 3-[address]: home A total of 35 minutes was spent on the care of this complex patient more than 50% of the time was spent in counseling and care coordination. Objective - Vital Signs Vital signs: Vital Signs Temp 98.8 F 10/22/20 12:00 Pulse 97 10/22/20 15:00 Resp 26 H 10/22/20 15:00 BP 107/77 10/22/20 15:00 Pulse Ox 99 10/22/20 15:00 Intake & Output 10/21/20 10/22/20 10/22/20 18:59 06:59 18:59 Intake Total 0303.553 8473.381 662.896 Output Total 930 640 470 Balance 203.725 810.381 192.896 Weight 105.3 kg 107.4 kg Intake: IV 896 462 308 0.9 @20mL/hr 330 190 60 0.9 pressure bag 30 72 48 A-Line Pressure Bag 18 CVP 18 Dextrose 5% in Water 1, 100 000 ml @ 50 mls/hr IV . Q23H [facility] with Sodium Bicarb (1 Meq/ml) 150 ml Rx#:[id number] Magnesium Sulfate-D5w Pmx 200 200 1 gm In Dextrose/Water 1 100ml.bag @ 100 mls/hr IVPB Q1H [facility] Rx#: [id number] Sodium Chloride 0.9% 1, 200 200 000 ml @ 20 mls/hr IV . Q24H [facility] Rx#:[id number] Intake, IV Titration 207.725 414.381 132.896 Amount Heparin Sod,Pork in 0.45% 76.933 94.597 84.583 NaCl 25,000 unit In 0.45 % NaCl 1 250ml.bag @ 9.5 UNITS/KG/HR 10.013 mls/hr IV .Q24H [facility] Rx#: [id number] Norepinephrine 8 mg In 37.618 78.647 48.313 Sodium Chloride 0.9% 250 ml @ 0.25 MCG/KG/MIN 46. 101 mls/hr IV .Q5H36M [facility] Rx#:[id number] ceFAZolin 2 gm In Sodium 50 Chloride 0.9% 50 ml @ 100 mls/hr IVPB Q12HR [facility] Rx #:[id number] propofoL 1,000 mg In 93.174 191.137 Empty Bag 1 bag @ Titrate IV .Q0M [facility] Rx#: [id number] Tube Feeding 30 484 132 Other 90 90 Output: Urine 930 640 470 Other: Voiding Method Indwelling Catheter Indwelling Catheter Indwelling Catheter # Bowel Movements 1 ABP, PAP, CO, CI - Last Documented Arterial Blood Pressure 107/51 - Labs CBC & Chem 7: 10/22/20 05:50 10/22/20 13:50 Labs: Abnormal Lab Results - Last 24 Hours (Table) 10/21/20 10/21/20 10/21/20 Range/Units 17:52 17:56 17:56 WBC (3.8-10.6) k/uL RBC 3.03 L (3.80-5.40) m/uL Hgb 9.4 L D (11.4-16.0) gm/dL Hct 29.1 L (34.0-46.0) % Plt Count 63 L (150-450) k/uL Lymphocytes # (1.0-4.8) k/uL PT (9.0-12.0) sec INR (<1.2) APTT 68.6 H (22.0-30.0) sec ABG pH (7.35-7.45) ABG pO2 (83-108) mmHg ABG HCO3 (21-25) mmol/L ABG Total CO2 (19-24) mmol/L ABG O2 Saturation (94-97) % BUN (7-17) mg/dL Creatinine (0.52-1.04) mg/dL Glucose (74-99) mg/dL POC Glucose (mg/dL) 115 H (75-99) mg/dL Hemoglobin A1c (4.0-6.0) % Calcium (8.4-10.2) mg/dL AST (14-36) U/L ALT (4-34) U/L Alkaline Phosphatase (38-126) U/L Total Protein (6.3-8.2) g/dL Albumin (3.5-5.0) g/dL 10/21/20 10/22/20 10/22/20 Range/Units 20:05 00:10 00:10 WBC 11.4 H (3.8-10.6) k/uL RBC 3.68 L (3.80-5.40) m/uL Hgb (11.4-16.0) gm/dL Hct (34.0-46.0) % Plt Count 76 L (150-450) k/uL Lymphocytes # (1.0-4.8) k/uL PT (9.0-12.0) sec INR (<1.2) APTT 43.0 H (22.0-30.0) sec ABG pH (7.35-7.45) ABG pO2 (83-108) mmHg ABG HCO3 (21-25) mmol/L ABG Total CO2 (19-24) mmol/L ABG O2 Saturation (94-97) % BUN (7-17) mg/dL Creatinine (0.52-1.04) mg/dL Glucose (74-99) mg/dL POC Glucose (mg/dL) 234 H (75-99) mg/dL Hemoglobin A1c (4.0-6.0) % Calcium (8.4-10.2) mg/dL AST (14-36) U/L ALT (4-34) U/L Alkaline Phosphatase (38-126) U/L Total Protein (6.3-8.2) g/dL Albumin (3.5-5.0) g/dL 10/22/20 10/22/20 10/22/20 Range/Units 00:21 04:15 04:30 WBC (3.8-10.6) k/uL RBC (3.80-5.40) m/uL Hgb (11.4-16.0) gm/dL Hct (34.0-46.0) % Plt Count (150-450) k/uL Lymphocytes # (1.0-4.8) k/uL PT (9.0-12.0) sec INR (<1.2) APTT (22.0-30.0) sec ABG pH (7.35-7.45) ABG pO2 (83-108) mmHg ABG HCO3 (21-25) mmol/L ABG Total CO2 (19-24) mmol/L ABG O2 Saturation (94-97) % BUN (7-17) mg/dL Creatinine (0.52-1.04) mg/dL Glucose (74-99) mg/dL POC Glucose (mg/dL) 226 H 247 H (75-99) mg/dL Hemoglobin A1c 8.7 H (4.0-6.0) % Calcium (8.4-10.2) mg/dL AST (14-36) U/L ALT (4-34) U/L Alkaline Phosphatase (38-126) U/L Total Protein (6.3-8.2) g/dL Albumin (3.5-5.0) g/dL 10/22/20 10/22/20 10/22/20 Range/Units 04:49 05:50 05:50 WBC (3.8-10.6) k/uL RBC (3.80-5.40) m/uL Hgb (11.4-16.0) gm/dL Hct (34.0-46.0) % Plt Count 67 L (150-450) k/uL Lymphocytes # 0.6 L (1.0-4.8) k/uL PT 13.9 H (9.0-12.0) sec INR 1.4 H (<1.2) APTT (22.0-30.0) sec ABG pH 7.50 H (7.35-7.45) ABG pO2 122 H (83-108) mmHg ABG HCO3 28 H (21-25) mmol/L ABG Total CO2 29 H (19-24) mmol/L ABG O2 Saturation 98.5 H (94-97) % BUN (7-17) mg/dL Creatinine (0.52-1.04) mg/dL Glucose (74-99) mg/dL POC Glucose (mg/dL) (75-99) mg/dL Hemoglobin A1c (4.0-6.0) % Calcium (8.4-10.2) mg/dL AST (14-36) U/L ALT (4-34) U/L Alkaline Phosphatase (38-126) U/L Total Protein (6.3-8.2) g/dL Albumin (3.5-5.0) g/dL 10/22/20 10/22/20 10/22/20 Range/Units 05:50 05:50 09:27 WBC (3.8-10.6) k/uL RBC (3.80-5.40) m/uL Hgb (11.4-16.0) gm/dL Hct (34.0-46.0) % Plt Count (150-450) k/uL Lymphocytes # (1.0-4.8) k/uL PT (9.0-12.0) sec INR (<1.2) APTT 41.0 H (22.0-30.0) sec ABG pH (7.35-7.45) ABG pO2 (83-108) mmHg ABG HCO3 (21-25) mmol/L ABG Total CO2 (19-24) mmol/L ABG O2 Saturation (94-97) % BUN 57 H (7-17) mg/dL Creatinine 1.26 H (0.52-1.04) mg/dL Glucose 217 H (74-99) mg/dL POC Glucose (mg/dL) 158 H (75-99) mg/dL Hemoglobin A1c (4.0-6.0) % Calcium 7.6 L (8.4-10.2) mg/dL AST 627 H (14-36) U/L ALT 107 H (4-34) U/L Alkaline Phosphatase 204 H (38-126) U/L Total Protein 4.7 L (6.3-8.2) g/dL Albumin 2.1 L (3.5-5.0) g/dL 10/22/20 10/22/20 Range/Units 11:43 13:50 WBC (3.8-10.6) k/uL RBC (3.80-5.40) m/uL Hgb (11.4-16.0) gm/dL Hct (34.0-46.0) % Plt Count (150-450) k/uL Lymphocytes # (1.0-4.8) k/uL PT (9.0-12.0) sec INR (<1.2) APTT 37.3 H (22.0-30.0) sec ABG pH (7.35-7.45) ABG pO2 (83-108) mmHg ABG HCO3 (21-25) mmol/L ABG Total CO2 (19-24) mmol/L ABG O2 Saturation (94-97) % BUN (7-17) mg/dL Creatinine (0.52-1.04) mg/dL Glucose (74-99) mg/dL POC Glucose (mg/dL) 131 H (75-99) mg/dL Hemoglobin A1c (4.0-6.0) % Calcium (8.4-10.2) mg/dL AST (14-36) U/L ALT (4-34) U/L Alkaline Phosphatase (38-126) U/L Total Protein (6.3-8.2) g/dL Albumin (3.5-5.0) g/dL Microbiology - Last 24 Hours (Table) 10/20/20 10:00 Blood Culture - Preliminary Blood No Growth after 48 hours 10/20/20 10:00 Blood Culture - Preliminary Blood No Growth after 48 hours 10/19/20 10:00 Blood Culture - Preliminary Blood No Growth after 72 hours 10/20/20 11:31 Gram Stain - Final Sputum Sputum Culture - Final 10/18/20 08:30 Blood Culture Gram Stain - Final Blood Blood Culture - Final Staphylococcus aureus 10/18/20 08:15 Blood Culture Gram Stain - Final Blood Blood Culture - Final Staphylococcus aureus 10/20/20 04:00 Blood Culture - Preliminary Blood No Growth after 48 hours
--- NOTE | 2020-10-22 18:51 | PN ---
PROGRESS NOTE DATE OF SERVICE: 10/22/2020 REASON FOR FOLLOWUP: MSSA bacteremia source likely pneumonia. INTERVAL HISTORY: Patient is currently afebrile. The patient ended up getting extubated. Sedation patient has been cut back and Patient is hemodynamically stable. No significant purulent secretions in the ET or diarrhea reported. PHYSICAL EXAMINATION: Blood pressure 111/68 with a pulse of 99, temperature 98.8. He is 99% on 2 L nasal cannula. General description: The patient is an elderly female lying in bed in no distress. Respiratory system: Unlabored breathing, decreased intensity of breath sounds. No wheeze. Heart S1, S2. Regular rate and rhythm. Abdomen soft, no tenderness. LABS: Hemoglobin is 12.5, white count 7.1. BUN of 57, creatinine is 1.26. DIAGNOSTIC IMPRESSION AND PLAN: Patient with MSSA bacteremia, source possible pneumonia. The patient overall improvement with improvement in kidney function. Cefazolin dose will be adjusted back to 2 grams q.8 hours and we will monitor clinical course closely. MMCARL / MADDIEN: [id number] / [email or web address]
[2020-10-22 20:15] LABS: Glucose,Whole Blood 72 mg/dL (75-99)
[2020-10-23 00:39] LABS: Glucose,Whole Blood 64 mg/dL (75-99)
[2020-10-23] MEDS: INSULIN ASPART (NovoLOG) 100 UNIT/ML VIAL SQ SCH ×4 (00:39→19:08)
[2020-10-23] MEDS ORDERED: DEXTROSE 50% SYRINGE 50 ML IVP ONE (00:40)
[2020-10-23 01:01] LABS: Glucose,Whole Blood 111 mg/dL (75-99)
[2020-10-23 04:21] LABS: Glucose,Whole Blood 109 mg/dL (75-99)
[2020-10-23] MEDS: NOREPINEPHRINE 8 MG in SODIUM CHLORIDE 0.9% 250 ML IV SCH ×2 (04:30→10:34)
[2020-10-23] MEDS: HEPARIN SOD,PORK IN 0.45% NACL 25,000 UNIT in 0.45% NACL 1 250ML.BAG IV SCH (04:34)
[2020-10-23] MEDS: SODIUM CHLORIDE 0.9% 1,000 ML IV SCH (04:36)
[2020-10-23 05:05] LABS: HCT 37.4 % (34.0-46.0); HGB 11.7 gm/dL (11.4-16.0); Hypochromasia Slight; MCH 30.6 pg (25.0-35.0); MCHC 31.4 g/dL (31.0-37.0); MCV 97.5 fL (80.0-100.0); RBC 3.83 m/uL (3.80-5.40); RDW 15.2 % (11.5-15.5); WBC 7.5 k/uL (3.8-10.6)
[2020-10-23 05:21] LABS: Calcium 8.6 mg/dL (8.4-10.2); Potassium 4.3 mmol/L (3.5-5.1)
[2020-10-23 05:37] LABS: Platelet Count 55 k/uL (150-450)
[2020-10-23] MEDS: INSULIN DETEMIR (LEVEMIR) 100 UNIT/ML SYR SQ SCH ×2 (06:18→21:40)
--- NOTE | 2020-10-23 07:23 | XR ---
EXAMINATION TYPE: XR chest 1V portable DATE OF EXAM: 10/23/2020 COMPARISON: 10/22/2020 HISTORY: Tube placement TECHNIQUE: Single frontal view of the chest is obtained. FINDINGS: Interval removal of endotracheal and enteric tubes. The left subclavian line remains. No significant change in left pleural effusion with left apical opacity and left basilar airspace dis ease and opacity of the left supraclavicular region. Postoperative changes overlie the cardiac silhouette with sternotomy changes and broken sternotomy wi re. IMPRESSION: Interval removal of endotracheal and enteric tubes are otherwise, no significant change since the julius or exam.
[2020-10-23] MEDS: ASPIRIN 81 MG PO SCH ×2 (10:24→15:14)
[2020-10-23] MEDS: PANTOPRAZOLE 40 MG/10 ML VIAL IVP SCH (10:24)
[2020-10-23] MEDS: METOPROLOL TARTRATE 25 MG TAB PO SCH ×3 (10:24→21:40)
[2020-10-23] MEDS: ISOSORBIDE MONONITRATE ER 30 MG TAB.ER.24H PO SCH ×2 (10:25→15:14)
[2020-10-23] MEDS: LEVOTHYROXINE 88 MCG TAB PO SCH ×2 (10:25→15:13)
[2020-10-23 10:29] LABS: Glucose,Whole Blood 134 mg/dL (75-99)
--- NOTE | 2020-10-23 10:44 | P.PN ---
Subjective HISTORY OF PRESENTING ILLNESS This is a pleasant 75-year-old female past medical history significant for hypertension, coronary artery disease status post bypass grafting and high risk PCI of the left main and LAD, ischemic cardiomyopathy, chronic systolic heart failure, dyslipidemia, diabetes mellitus and paroxysmal atrial fibrillation. She follows in the office with Dr. Villarreal. We have been asked to see in consultation for elevated troponin. She presented to the hospital with generalized weakness and elevated blood sugar. She also was complaining of intermittently having a fever with associated body aches. She denies having any chest pain or shortness of breath. She has had no palpitations or dizziness. She was found to have positive blood cultures with gram-positive cocci. She is currently being treated with IV antibiotics awaiting infectious disease evaluation. Most recent echocardiogram obtained December 2019 revealed impaired LV systolic function with ejection fraction 40%, grade 3 diastolic dysfunction, severely dilated left atrium, moderate aortic regurgitation, mild mitral regurgitation, [id number] tricuspid regurgitation and mild pulmonary hypertension. Most recent cardiac catheterization performed in November 2019 she underwent orbital arthrectomy and stenting of the left main with Impella support at [facility]. 10/23/2020 Patient was seen and examined in the intensive care unit sitting up in no acute distress. She has been successfully extubated maintaining oxygen saturation on nasal cannula. Blood pressure 142/101 heart rate 121. She is off levophed and has not been getting her daily toprol due to hypotension. Laboratory data reviewed, WBC 7.5, hgb 11.7, plt 55, sodium 142, potassium 4.3, creatinine 0.93 and magnesium 2.5. She is maintaining a positive fluid balance over the previous 24 hours. PHYSICAL EXAMINATION CONSTITUTIONAL: No apparent distress. HEENT: Head is normocephalic. Pupils are equal, round. Sclerae anicteric. Mucous membranes of the mouth are moist. No JVD. Bilateral carotid bruit. CHEST EXAMINATION: Lungs are clear to auscultation. No chest wall tenderness is noted on palpation or with deep breathing. HEART EXAMINATION: Irregular rate and rhythm. S1, S2 heard. Systolic ejection murmur at the base, no gallops or rub. EXTREMITIES: 2+ peripheral pulses, bilateral lower extremity trace edema and no calf tenderness. ASSESSMENT Bacteremia, MSSA Sepsis with septic shock Acute kidney injury Lactic acidosis Troponin elevation secondary to renal function and sepsis not primary myocardial injury Coagulopathy Transaminitis Hypokalemia Hypomagnesemia Thrombocytopenia, worsening Coronary artery disease s/p bypass grafting and high risk left main PCI Chronic systolic and diastolic heart failure, clinically euvolemic Ischemic cardiomyopathy Hypertension Paroxysmal atrial fibrillation on warfarin, went into afib 10/19. Dyslipidemia History of lung cancer PLAN Hold plavix and heparin infusion for worsening thrombocytopenia. Given lopressor 25 mg BID starting now. Can increase as tolerated. PO lasix initiated per nephrology. Further recommendations to follow based on clinical course. Nurse Practitioner note has been reviewed, I agree with a documented findings and plan of care. Patient was seen and examined. Objective - Vital Signs Vital signs: Vital Signs Temp 97.7 F 10/23/20 04:00 Pulse 121 H 10/23/20 07:00 Resp 33 H 10/23/20 07:00 BP 142/101 10/23/20 07:00 Pulse Ox 96 10/23/20 07:00 Intake & Output 10/22/20 10/23/20 10/23/20 18:59 06:59 18:59 Intake Total 840.896 746.393 23 Output Total 630 470 40 Balance 210.896 276.393 -17 Weight 106.7 kg Intake: IV 486 346 23 0.9 @20mL/hr 60 0.9 pressure bag 66 66 3 Potassium Chloride 20 meq 100 In Water For Injection 1 100ml.bag @ 50 mls/hr IVPB ONCE STA Rx#: [id number] Sodium Chloride 0.9% 1, 260 230 20 000 ml @ 20 mls/hr IV . Q24H [facility] Rx#:[id number] ceFAZolin 2 gm In Sodium 50 Chloride 0.9% 50 ml @ 100 mls/hr IVPB Q12HR [facility] Rx #:[id number] Intake, IV Titration 132.896 160.393 Amount Heparin Sod,Pork in 0.45% 84.583 160.393 NaCl 25,000 unit In 0.45 % NaCl 1 250ml.bag @ 9.5 UNITS/KG/HR 10.013 mls/hr IV .Q24H [facility] Rx#: [id number] Norepinephrine 8 mg In 48.313 Sodium Chloride 0.9% 250 ml @ 0.25 MCG/KG/MIN 46. 101 mls/hr IV .Q5H36M [facility] Rx#:[id number] Oral 240 Tube Feeding 132 Other 90 Output: Urine 630 470 40 Other: Voiding Method Indwelling Catheter Indwelling Catheter # Bowel Movements 1 ABP, PAP, CO, CI - Last Documented Arterial Blood Pressure 128/60 - Labs CBC & Chem 7: 10/23/20 04:15 10/23/20 04:15 Labs: Abnormal Lab Results - Last 24 Hours (Table) 10/22/20 10/22/20 10/22/20 Range/Units 04:30 11:43 13:50 Plt Count (150-450) k/uL APTT 37.3 H (22.0-30.0) sec Chloride (98-107) mmol/L BUN (7-17) mg/dL Glucose (74-99) mg/dL POC Glucose (mg/dL) 131 H (75-99) mg/dL Hemoglobin A1c 8.7 H (4.0-6.0) % Magnesium (1.6-2.3) mg/dL 10/22/20 10/22/20 10/22/20 Range/Units 16:00 20:13 20:55 Plt Count (150-450) k/uL APTT 53.9 H (22.0-30.0) sec Chloride (98-107) mmol/L BUN (7-17) mg/dL Glucose (74-99) mg/dL POC Glucose (mg/dL) 73 L 72 L (75-99) mg/dL Hemoglobin A1c (4.0-6.0) % Magnesium (1.6-2.3) mg/dL 10/23/20 10/23/20 10/23/20 Range/Units 00:37 01:00 04:15 Plt Count (150-450) k/uL APTT (22.0-30.0) sec Chloride (98-107) mmol/L BUN (7-17) mg/dL Glucose (74-99) mg/dL POC Glucose (mg/dL) 64 L 111 H (75-99) mg/dL Hemoglobin A1c (4.0-6.0) % Magnesium 2.5 H (1.6-2.3) mg/dL 10/23/20 10/23/20 10/23/20 Range/Units 04:15 04:15 04:15 Plt Count 55 L (150-450) k/uL APTT 40.7 H (22.0-30.0) sec Chloride 108 H (98-107) mmol/L BUN 47 H (7-17) mg/dL Glucose 114 H (74-99) mg/dL POC Glucose (mg/dL) (75-99) mg/dL Hemoglobin A1c (4.0-6.0) % Magnesium (1.6-2.3) mg/dL 10/23/20 10/23/20 Range/Units 04:18 10:27 Plt Count (150-450) k/uL APTT (22.0-30.0) sec Chloride (98-107) mmol/L BUN (7-17) mg/dL Glucose (74-99) mg/dL POC Glucose (mg/dL) 109 H 134 H (75-99) mg/dL Hemoglobin A1c (4.0-6.0) % Magnesium (1.6-2.3) mg/dL Microbiology - Last 24 Hours (Table) 10/20/20 04:00 Blood Culture - Preliminary Blood No Growth after 72 hours 10/20/20 10:00 Blood Culture - Preliminary Blood No Growth after 48 hours 10/20/20 10:00 Blood Culture - Preliminary Blood No Growth after 48 hours 10/19/20 10:00 Blood Culture - Preliminary Blood No Growth after 72 hours 10/20/20 11:31 Gram Stain - Final Sputum Sputum Culture - Final 10/18/20 08:30 Blood Culture Gram Stain - Final Blood Blood Culture - Final Staphylococcus aureus 10/18/20 08:15 Blood Culture Gram Stain - Final Blood Blood Culture - Final Staphylococcus aureus
[2020-10-23] MEDS ORDERED: FUROSEMIDE 40 MG TAB PO SCH (10:45)
--- NOTE | 2020-10-23 10:48 | P.PN ---
Subjective Progress Note Date: 10/23/20 Patient is awake and alert today. She appeared weak. She does not have any complaints. IV heparin drip was discontinued secondary to thrombocytopenia. Objective - Vital Signs Vital signs: Vital Signs Temp 97.7 F 10/23/20 04:00 Pulse 121 H 10/23/20 07:00 Resp 33 H 10/23/20 07:00 BP 142/101 10/23/20 07:00 Pulse Ox 96 10/23/20 07:00 Intake & Output 10/22/20 10/23/20 10/23/20 18:59 06:59 18:59 Intake Total 840.896 746.393 23 Output Total 630 470 40 Balance 210.896 276.393 -17 Weight 106.7 kg Intake: IV 486 346 23 0.9 @20mL/hr 60 0.9 pressure bag 66 66 3 Potassium Chloride 20 meq 100 In Water For Injection 1 100ml.bag @ 50 mls/hr IVPB ONCE STA Rx#: [id number] Sodium Chloride 0.9% 1, 260 230 20 000 ml @ 20 mls/hr IV . Q24H [facility] Rx#:[id number] ceFAZolin 2 gm In Sodium 50 Chloride 0.9% 50 ml @ 100 mls/hr IVPB Q12HR [facility] Rx #:[id number] Intake, IV Titration 132.896 160.393 Amount Heparin Sod,Pork in 0.45% 84.583 160.393 NaCl 25,000 unit In 0.45 % NaCl 1 250ml.bag @ 9.5 UNITS/KG/HR 10.013 mls/hr IV .Q24H [facility] Rx#: [id number] Norepinephrine 8 mg In 48.313 Sodium Chloride 0.9% 250 ml @ 0.25 MCG/KG/MIN 46. 101 mls/hr IV .Q5H36M [facility] Rx#:[id number] Oral 240 Tube Feeding 132 Other 90 Output: Urine 630 470 40 Other: Voiding Method Indwelling Catheter Indwelling Catheter # Bowel Movements 1 ABP, PAP, CO, CI - Last Documented Arterial Blood Pressure 128/60 - Exam General: The patient is awake and alert, in no distress Eye: there is normal conjunctiva bilaterally. Neck: The neck is supple, there is no JVD. Cardiovascular: Normal S1-S2, no S3-S4, no murmurs. Respiratory: Lungs clear to auscultation bilaterally Gastrointestinal: Abdomen is soft, nontender Musculoskeletal: There is no pedal edema. Neurological:. Speech is normal. Skin: Skin is warm and dry - Labs CBC & Chem 7: 10/23/20 04:15 10/23/20 04:15 Labs: Abnormal Lab Results - Last 24 Hours (Table) 10/22/20 10/22/20 10/22/20 Range/Units 04:30 11:43 13:50 Plt Count (150-450) k/uL APTT 37.3 H (22.0-30.0) sec Chloride (98-107) mmol/L BUN (7-17) mg/dL Glucose (74-99) mg/dL POC Glucose (mg/dL) 131 H (75-99) mg/dL Hemoglobin A1c 8.7 H (4.0-6.0) % Magnesium (1.6-2.3) mg/dL 10/22/20 10/22/20 10/22/20 Range/Units 16:00 20:13 20:55 Plt Count (150-450) k/uL APTT 53.9 H (22.0-30.0) sec Chloride (98-107) mmol/L BUN (7-17) mg/dL Glucose (74-99) mg/dL POC Glucose (mg/dL) 73 L 72 L (75-99) mg/dL Hemoglobin A1c (4.0-6.0) % Magnesium (1.6-2.3) mg/dL 10/23/20 10/23/20 10/23/20 Range/Units 00:37 01:00 04:15 Plt Count (150-450) k/uL APTT (22.0-30.0) sec Chloride (98-107) mmol/L BUN (7-17) mg/dL Glucose (74-99) mg/dL POC Glucose (mg/dL) 64 L 111 H (75-99) mg/dL Hemoglobin A1c (4.0-6.0) % Magnesium 2.5 H (1.6-2.3) mg/dL 10/23/20 10/23/20 10/23/20 Range/Units 04:15 04:15 04:15 Plt Count 55 L (150-450) k/uL APTT 40.7 H (22.0-30.0) sec Chloride 108 H (98-107) mmol/L BUN 47 H (7-17) mg/dL Glucose 114 H (74-99) mg/dL POC Glucose (mg/dL) (75-99) mg/dL Hemoglobin A1c (4.0-6.0) % Magnesium (1.6-2.3) mg/dL 10/23/20 10/23/20 Range/Units 04:18 10:27 Plt Count (150-450) k/uL APTT (22.0-30.0) sec Chloride (98-107) mmol/L BUN (7-17) mg/dL Glucose (74-99) mg/dL POC Glucose (mg/dL) 109 H 134 H (75-99) mg/dL Hemoglobin A1c (4.0-6.0) % Magnesium (1.6-2.3) mg/dL Microbiology - Last 24 Hours (Table) 10/20/20 04:00 Blood Culture - Preliminary Blood No Growth after 72 hours 10/20/20 10:00 Blood Culture - Preliminary Blood No Growth after 48 hours 10/20/20 10:00 Blood Culture - Preliminary Blood No Growth after 48 hours 10/19/20 10:00 Blood Culture - Preliminary Blood No Growth after 72 hours 10/20/20 11:31 Gram Stain - Final Sputum Sputum Culture - Final 10/18/20 08:30 Blood Culture Gram Stain - Final Blood Blood Culture - Final Staphylococcus aureus 10/18/20 08:15 Blood Culture Gram Stain - Final Blood Blood Culture - Final Staphylococcus aureus Assessment and Plan Assessment: This is a 75-year-old female with past medical history significant for left lung cancer now in remission that presented to the emergency room with fevers. Patient was evaluated in the ER and admitted to the hospital for further management of her medical problems noted below. 1. Severe sepsis with septic shock, treated with aggressive IV fluid hydration and antibiotic. Required vasopressors but now off since 10/22. Source of infection underlying pneumonia/bacteremia. Influenza, Covid-19, and C. diff screen negative 2. MSSA bacteremia, Repeat blood culture from 10/19 negative to date. Currently on IV cefazolin with stop date of 11/02 (2 weeks of antibiotics since negative blood culture). I consulted infectious disease for further evaluation. Echocardiogram with no intracardiac source. Computed tomography scan of the abdomen and pelvis with no source of infection 3. DKA, mild on presentation. Required insulin drip on presentation. Anion gap closed. Received aggressive IV fluid hydration. Now transitioned to subcutaneous insulin 4. Acute kidney injury, oliguric. hyperkalemia: Resolved. Avoid nephrotoxins. Nephrology consulted for further evaluation. 5. Acute respiratory failure requiring sedation and mechanical intubation successfully extubated 5. Metabolic acidosis secondary to above 6. Liver shock with coagulopathy secondary to hypotension. Liver enzymes trending now 7. Troponin elevation, non-thrombotic troponin leak secondary to severe sepsis. Cardiology consulted for further evaluation. Echocardiogram showed EF of 20- 25% 8. Chronic atrial fibrillation on anticoagulation with Coumadin, supratherapeutic INR on presentation status post vitamin K. Currently on an ticoagulation on hold secondary to thrombocytopenia 9. Chronic congestive heart failure, systolic. Lasix 40 mg daily ordered 10. History of lung cancer in remission 11. Worsening thrombocytopenia: Probably secondary to presentation with severe sepsis. IV heparin was discontinued. We will continue to monitor closely. Today, I reviewed her medication list and lab work results Bedside swallow evaluation and start diet as tolerated Repeat lab work in the morning PT/OT evaluation Patient may be transferred out of the intensive care unit
--- NOTE | 2020-10-23 10:55 | PN ---
PROGRESS NOTE Patient is seen for followup for acute kidney injury mostly acute tubular necrosis, secondary to hypotension and sepsis. Renal function has been improving. Urine output has picked up and creatinine is down to 0.9 after peak of about 2.8 mg/dL. The patient was extubated yesterday. This morning she is comfortable, awake, not in any acute distress. PHYSICAL EXAMINATION: Blood pressure 136/89, heart rate 120 per minute, she is afebrile. Examination of the heart S1, S2. Examination of the lungs, bilateral breath sounds are heard. Decreased breath sounds at bases. Abdomen is soft, nontender. Examination of lower extremity shows edema 1+ bilaterally. [employer] exam grossly intact. LAB: Show sodium 142, potassium 4.3, chloride 108, BUN 47, serum creatinine 0.9 hemoglobin 11.7 g/dL. ASSESSMENT: 1. Acute kidney injury, acute tubular necrosis, currently resolved. 2. Acute hypoxic respiratory failure status post extubation. 3. Metabolic acidosis, multifactorial including diabetic ketoacidosis, lactic acidosis and renal failure, now resolved. 4. Diabetic ketoacidosis, on initial admission, now resolved. 5. History of [id number] lung cancer status post chemo radiation therapy. 6. Mild volume overload status post one dose of Lasix yesterday, currently off IV fluids. PLAN: Maintain patient on oral Lasix. Repeat labs in a.m. Continue to avoid nephrotoxic agents. Monitor electrolytes. MMODL / IJN: [id number] /
--- NOTE | 2020-10-23 11:05 | P.PN ---
Subjective Progress Note Date: 10/23/20 75-year-old female patient known history of non-small cell lung cancer locally advanced stage III be treated with a combination of chemoradiation therapy with favorable response. The patient was considered for surgical resection and was able to be nonsurgical due to borderline lung function and location of the tumor. The patient had an FEV1 of 60% of predicted. The patient was started with the immunotherapy for a while. She also has history of CHF with an ejection fraction of 3035% with global hypokinesis, CAD with previous bypass surgery in 2005 and previous non-STEMI and diabetes mellitus. The patient came into the emergency department yesterday because of altered mental status and body aches and pains at home. The patient was initially tachycardic with a heart rate of 117. The blood work showed a white cell count of 11.7, sodium was 131 with a potassium level of 5.3 and a serum bicarb of 14 with anion gap of 17. BUN was 55 with a creatinine of 2.3. Glucose was 47. Lactic acid level was 3.8 and a magnesium of 1.8 and troponin of 0.9 initially and it maxed out at 1.2 suggestive an acute non-STEMI.. UA was negative. COVID-19 testing was negative. The lactic acid level was as high as 7.5. Chest x-ray was consistent with a left suprahilar mass and a small left-sided pleural effusion. The patient was running a temperature of 99.5. She was complaining of shortness of breath. Her chest x-ray also showed a moderate-sized left-sided pleural effusion along with some volume loss in the left suprahilar mass. The patient has not received any treatment regarding her malignancy for the past few years. Most recent PET/CT from 08/21/2020 showed no areas of new metabolic activity to suggest recurrent tumor. There was small to moderate-sized left-sided pleural effusion that had shown some increased interval size compared to earlier PET/CT. This morning, the patient is calm and comfortable. No signs of any major respiratory distress. She remained in 100% nonrebreather facemask and her pulse ox is in the order of 95-99%. She didn't use the BiPAP overnight depression of 12/6 with an FiO2 of 50%. She was given a total of 4 L of IV fluids overnight. Urine output in order of 10 mL an hour. CAT scan of the abdomen and pelvis was completed and showed lateral pleural effusions along with cardiomegaly. No acute intra-abdominal pathology. Her morning INR is at 4.9. She is on insulin drip running at 1.12 units hour. After being given 4 L of IV fluid, the patient continued to be running some low blood pressure. She is also on norepinephrine infusion this morning at a dose of 0.16 mcg/kg per minute. Most recent blood pressure is 120/51. She has an arterial radial line on the right. No tachycardia. She is currently in normal sinus rhythm. 10/20/2020, the patient is being seen in follow-up in the intensive care unit. Events from yesterday were noted. After my morning evaluation, I reevaluated this patient and ICU at around 3:00 in the afternoon. The patient was becoming progressively more septic. She was becoming progressively more acidotic, tachypneic, tachycardic, hypotensive, urine output was low and the patient was very much cold and clammy. Her lactic acid level was also on the rise. Based on that, I inserted a triple lumen catheter and was started fluid resuscitation. We also intubated the patient with on a mechanical ventilator. The patient's subsequent collar turner to have positive blood cultures with MSSA. IDs aware and the patient was started on IV cefazolin. 2 cultures of the blood are positive. This morning, the patient is sedated with propofol and probably was running at 30 mcg/kg per minute and the patient is calm and comfortable. She is intubated on a mechanical ventilator. She is an assist-control mode at the rate of 32 with a tidal volume of 500 and FiO2 of 35% with a PEEP of 5. Chest x-ray showing some atelectatic changes/effusion the left lung base. Right lung essentially clear. ET tube is in a good location and the patient has a triple lumen catheter in the left subclavian. No significant orotracheal secretions. She is quite success with the mechanical ventilator. She is able to generate a minute ventilation of 16.3 L with a peak airway pressure of around 26. Hemodynamically, the patient was given a total of 6 L of IV fluid bolus. She was also on a bicarb infusion initially at a dose of 100 mL an hour and currently she is at 50 mL an hour. Urine output has improved and the patient is producing urine output in the order of 75 mL an hour. Also, she remains on pressors. Norepinephrine infusion is running at 0.05 mcg/kg per minute. Insulin drip is also at 1.5 units an hour. On her labs, acid peaked at 10 and the most recent lactic acid level is at 3.4. The serum bicarb from this morning is at 16. Her BUN is at 64 with a creatinine of 2.4. Creatinine peaked at 3.46 and this is from yesterday noontime. She does have a component of shock liver and the LFTs are also abnormal with an AST of 1367 and ALP of 284. Bilirubin is at 1.5. The white cell count today is at 9.6 with a hemoglobin of 12.3. Platelet count has dropped to 102 pro-calcitonin level is up to 16.1. Serum cortisol was at 95 and no hydrocortisone was given. Troponins were also positive and a peaked at 1.2. Cardiac cardiac rhythm is atrial fibrillation with a controlled rate. 10/21/2020, I'm seeing the patient for a follow-up. She has done good progress and the patient septic shock was treated with antibiotics with IV cefazolin. Repeat blood cultures been negative. Patient was found to have MSSA in the blood. In general, she is doing better. Her lactic acid levels have improved. Hemodynamics improved and she is on minimal amount of pressors at this point in time and urine output is also improved. The patient this morning is sedated with propofol which is running at 15 mcg/kg per minute. She is on a mechanical ventilator with an assist-control mode at the rate of 20 with a tidal volume of 500 and FiO2 of 35% with a PEEP of 5. Blood gases from today is showing a pH of 7.52 with a pCO2 of 31 and pO2 of 130. Chest x-ray is unchanged and the patient has a left perihilar opacity consistent with non-small cell lung cancer in addition to chronic left-sided pleural effusion and some elevation of the left hemidiaphragm. Her DKA has completely recovered and the patient is currently off insulin drip and she is on Levemir insulin for blood sugar control. The patient is on IV cefazolin for her underlying MSSA septic shock. Shock liver is improving. Kidney injury is improving. Creatinine is down to 1.8. Pressors requirements have improved. No other significant issues otherwise. We are the process of getting this patient a sedation holiday and assess her underlying mental status and readiness to wean.\ 10/22/2020, I'm seeing this patient for a follow-up in the intensive care unit. The patient is a case of septic shock with multisystem organ failure and respi ratory failure. The patient has improved considerably. Cultures of the blood was positive for MSSA and patient is currently on IV cefazolin. Repeat cultures of been negative. Hemodynamically improved and she is currently off pressors. Acute kidney injury is also improving. In terms of sedation, the patient was given a sedation holiday and she was very slow to recover. It took her till late in the evening to demonstrate some neurologic recovery and based on that no weaning was done. The patient was placed back on sedation and earlier this morning she was taken off sedation and this morning she is following some simple commands and answering questions appropriately. She is extremely weak. She is on a mechanical ventilator patient is an assist-control mode with a rate of 12 with a tidal volume of 450 and FiO2 of 35% with a PEEP of 5. Blood gases showed a pH of 7.5 with a pCO2 of 36 and pO2 122. She remains in atrial fibrillation. She is on IV heparin. INR is down to 1.4 and the PT he is at 41. Hemoglobin is at 12.5. White cell count is at 7.1. Chest x-ray is not showing any interval change. The patient was given a dose of Lasix by cardiology yesterday. Creatinine is improving and is currently down to 1.26. On today's evaluation of 10/20/2020, the patient is awake and communicating. As stated earlier the patient was extubated. The patient was a case of sepsis secondary to MSSA and the patient is currently on cefazolin IV. Doing well. Hemodynamically stable. Renal function is improving. She remains in atrial fibrillation. IV heparin was discontinued as the patient developed some thrombocytopenia. We will monitor the platelet counts. We'll start the patient on antibiotic ventilation with warfarin once she is able to swallow. She did have 2 bedside swallow evaluation that she failed an official swallow evaluation was done by speech pathology. Otherwise, the patient is doing well. She is over the week. She is following commands. No signs of respiratory distress. Breathing is nonlabored. The creatinine is at 0.7. Rest of the electrodes are all within normal limits. The white cell count is 7.5 with a hemoglobin of 11.7. Chest x-ray showing some limited apical opacity in left basilar airspace disease Objective - Vital Signs Vital signs: Vital Signs Temp 97.7 F 10/23/20 04:00 Pulse 121 H 10/23/20 07:00 Resp 33 H 10/23/20 07:00 BP 142/101 10/23/20 07:00 Pulse Ox 96 10/23/20 07:00 Intake & Output 10/22/20 10/23/20 10/23/20 18:59 06:59 18:59 Intake Total 840.896 746.393 23 Output Total 630 470 40 Balance 210.896 276.393 -17 Weight 106.7 kg Intake: IV 486 346 23 0.9 @20mL/hr 60 0.9 pressure bag 66 66 3 Potassium Chloride 20 meq 100 In Water For Injection 1 100ml.bag @ 50 mls/hr IVPB ONCE STA Rx#: [id number] Sodium Chloride 0.9% 1, 260 230 20 000 ml @ 20 mls/hr IV . Q24H [facility] Rx#:[id number] ceFAZolin 2 gm In Sodium 50 Chloride 0.9% 50 ml @ 100 mls/hr IVPB Q12HR [facility] Rx #:[id number] Intake, IV Titration 132.896 160.393 Amount Heparin Sod,Pork in 0.45% 84.583 160.393 NaCl 25,000 unit In 0.45 % NaCl 1 250ml.bag @ 9.5 UNITS/KG/HR 10.013 mls/hr IV .Q24H [facility] Rx#: [id number] Norepinephrine 8 mg In 48.313 Sodium Chloride 0.9% 250 ml @ 0.25 MCG/KG/MIN 46. 101 mls/hr IV .Q5H36M [facility] Rx#:[id number] Oral 240 Tube Feeding 132 Other 90 Output: Urine 630 470 40 Other: Voiding Method Indwelling Catheter Indwelling Catheter # Bowel Movements 1 ABP, PAP, CO, CI - Last Documented Arterial Blood Pressure 128/60 - Exam Gen. appearance, comfortable no acute distress.appearance, comfortable, the patient currently on 2 L of oxygen by nasal cannula. Head exam was generally normal. There was no scleral icterus or corneal arcus. Mucous membranes were moist. Neck was supple and without jugular venous distension, thyromegaly, or carotid bruits. Carotids were easily palpable bilaterally. There was no adenopathy. Lungs were clear to auscultation and percussion, and with normal diaphragmatic excursion. No wheezes or rales were noted. Cardiac exam revealed the PMI to be normally situated and sized. The rhythm was regular and no extrasystoles were noted during several minutes of auscultation. The first and second heart sounds were irregular consistent with atrial fibrillation.. There were no murmurs, rubs, clicks, or gallops. Abdominal exam revealed normal bowel sounds. The abdomen was soft, non-tender, and without masses, organomegaly, or appreciable enlargement of the abdominal aorta. Examination of the extremities revealed easily palpable radial, femoral and pedal pulses. There was no cyanosis, clubbing or edema. Examination of the skin revealed no evidence of significant rashes, suspicious appearing nevi or other concerning lesions. Neurologically, the patient is being evaluated neurologically. She has global motor weakness in all 4 extremities, no focal neurological deficit. She is able to follow simple commands - Labs CBC & Chem 7: 10/23/20 04:15 10/23/20 04:15 Labs: Abnormal Lab Results - Last 24 Hours (Table) 10/22/20 10/22/20 10/22/20 Range/Units 04:30 11:43 13:50 Plt Count (150-450) k/uL APTT 37.3 H (22.0-30.0) sec Chloride (98-107) mmol/L BUN (7-17) mg/dL Glucose (74-99) mg/dL POC Glucose (mg/dL) 131 H (75-99) mg/dL Hemoglobin A1c 8.7 H (4.0-6.0) % Magnesium (1.6-2.3) mg/dL 10/22/20 10/22/20 10/22/20 Range/Units 16:00 20:13 20:55 Plt Count (150-450) k/uL APTT 53.9 H (22.0-30.0) sec Chloride (98-107) mmol/L BUN (7-17) mg/dL Glucose (74-99) mg/dL POC Glucose (mg/dL) 73 L 72 L (75-99) mg/dL Hemoglobin A1c (4.0-6.0) % Magnesium (1.6-2.3) mg/dL 10/23/20 10/23/20 10/23/20 Range/Units 00:37 01:00 04:15 Plt Count (150-450) k/uL APTT (22.0-30.0) sec Chloride (98-107) mmol/L BUN (7-17) mg/dL Glucose (74-99) mg/dL POC Glucose (mg/dL) 64 L 111 H (75-99) mg/dL Hemoglobin A1c (4.0-6.0) % Magnesium 2.5 H (1.6-2.3) mg/dL 10/23/20 10/23/20 10/23/20 Range/Units 04:15 04:15 04:15 Plt Count 55 L (150-450) k/uL APTT 40.7 H (22.0-30.0) sec Chloride 108 H (98-107) mmol/L BUN 47 H (7-17) mg/dL Glucose 114 H (74-99) mg/dL POC Glucose (mg/dL) (75-99) mg/dL Hemoglobin A1c (4.0-6.0) % Magnesium (1.6-2.3) mg/dL 10/23/20 10/23/20 Range/Units 04:18 10:27 Plt Count (150-450) k/uL APTT (22.0-30.0) sec Chloride (98-107) mmol/L BUN (7-17) mg/dL Glucose (74-99) mg/dL POC Glucose (mg/dL) 109 H 134 H (75-99) mg/dL Hemoglobin A1c (4.0-6.0) % Magnesium (1.6-2.3) mg/dL Microbiology - Last 24 Hours (Table) 10/20/20 04:00 Blood Culture - Preliminary Blood No Growth after 72 hours 10/20/20 10:00 Blood Culture - Preliminary Blood No Growth after 48 hours 10/20/20 10:00 Blood Culture - Preliminary Blood No Growth after 48 hours 10/19/20 10:00 Blood Culture - Preliminary Blood No Growth after 72 hours 10/20/20 11:31 Gram Stain - Final Sputum Sputum Culture - Final 10/18/20 08:30 Blood Culture Gram Stain - Final Blood Blood Culture - Final Staphylococcus aureus 10/18/20 08:15 Blood Culture Gram Stain - Final Blood Blood Culture - Final Staphylococcus aureus Assessment and Plan Plan: 1 septic shock secondary to staph aureus, MSSA and the patient is currently on IV cefazolin. The exact source is not clear. Could be pulmonary source involving the left lower lobe. 2 diabetes mellitus with mild component of DKA order the patient was started on Levemir insulin for blood sugar control along with a sinus care coverage. On Levemir insulin his dose of 14 units daily at bedtime plus is sinus care coverage. The Levemir is currently on hold as the patient is currently running a lower blood sugar. 3 severe metabolic acidosis and lactic acidosis secondary to above , recovered 4 hypotension, essentially secondary to septic shock with possibly a cardiogenic component as the patient has an ejection fraction of 20-25% on echocardiogram., Within the patient is currently off vasopressors 5 coronary artery disease with previous bypass surgery 6 abnormal troponin, consider non-STEMI, patient is free of any chest pain, could be sepsis induced troponin leaktroponin leak that 1.28, consider underlyin g mild component of non-STEMI. 7 paroxysmal atrial fibrillation , currently on IV heparin 8 non-small cell lung cancer, stage IIIB post chemoradiation therapy. Most recent PET scan from August 2020 was essentially within stable state and the patient had no significant metabolic activity noted to suggest tumor recurrence 9 bilateral pleural effusion more so on the left, slight increased in the size of the pleural effusion based on the most recent PET scan 10 acute shock liver, Improving on today's evaluation 11 Coumadin toxicity, without any signs of bleeding, recovered 12 acute kidney injury, improving 13 hypothermia, improving 14 CHF with an ejection fraction of 20-25% 15 THROMBOCYTOPENIA Plan Proceed with another swallow evaluation Encouraged use of incentive spirometer Continue IV cefazolin Hold Levemir insulin for now Physical Therapist Assistant with physical therapy Will monitor the platelet count. We'll initiate warfarin once the patient is able to swallow and she passes a swallow evaluation. Repeat blood cultures of been negative Continue IV cefazolin We'll continue to follow Keep In ICU for another 24 hours.
[2020-10-23 11:30] LABS: Glucose,Whole Blood 147 mg/dL (75-99)
[2020-10-23 12:08] LABS: Glucose,Whole Blood 143 mg/dL (75-99)
[2020-10-23] MEDS ORDERED: INSULIN ASPART (NovoLOG) 100 UNIT/ML VIAL SQ SCH (12:30)
[2020-10-23 16:11] LABS: Glucose,Whole Blood 150 mg/dL (75-99)
[2020-10-23] MEDS: FUROSEMIDE 10 MG/ML 4 ML VIAL IV SCH (16:27)
--- NOTE | 2020-10-23 18:46 | PN ---
PROGRESS NOTE DATE OF SERVICE: 10/23/2020 REASON FOR FOLLOWUP: MSSA bacteremia pneumonia. INTERVAL HISTORY: Patient has been extubated. The patient is breathing comfortably on nasal cannula oxygen. Denies having any chest pain or shortness of breath. Did have a cough. No nausea, no vomiting. No abdominal pain, no diarrhea. PHYSICAL EXAMINATION: Blood pressure 113/70 with a pulse of 92, temperature is 97.6. She is 96% on 2 L nasal cannula. General description is an elderly female lying in no distress. Respiratory system: Unlabored breathing, decreased intensity of breath sounds. No wheeze. Heart: S1, S2. Regular rate and rhythm. Abdomen soft, no tenderness. LABS: Hemoglobin 11.5, white count 7.5. BUN of 47, creatinine 0.93. Repeat blood culture has been negative. DIAGNOSTIC IMPRESSION AND PLAN: Patient with MSSA bacteremia, possible pneumonia. The patient seemed to have shown clinical improvement. Patient to continue with cefazolin and the patient is cleared her bacteremia very quickly, making it unlikely to be intravascular source. Continue supportive care. MMODL / IJN: [id number] /
[2020-10-23 18:58] LABS: Glucose,Whole Blood 178 mg/dL (75-99)
[2020-10-23] MEDS ORDERED: FUROSEMIDE 10 MG/ML 10 ML VIAL IV STA (19:42)
[2020-10-24 00:56] LABS: Glucose,Whole Blood 150 mg/dL (75-99)
[2020-10-24] MEDS: INSULIN ASPART (NovoLOG) 100 UNIT/ML VIAL SQ SCH ×4 (00:59→17:41)
[2020-10-24 04:10] LABS: HCT 35.7 % (34.0-46.0); HGB 11.3 gm/dL (11.4-16.0); Hypochromasia Moderate; MCH 31.3 pg (25.0-35.0); MCHC 31.6 g/dL (31.0-37.0); MCV 98.9 fL (80.0-100.0); Macrocytosis Slight; Mean Platelet Volume 10.4; RBC 3.61 m/uL (3.80-5.40); WBC 8.2 k/uL (3.8-10.6)
[2020-10-24 04:23] LABS: Calcium 8.2 mg/dL (8.4-10.2); Potassium 4.6 mmol/L (3.5-5.1)
[2020-10-24 04:33] LABS: Platelet Count 64 k/uL (150-450)
[2020-10-24 04:53] LABS: Band Neutrophils % 1 %; Lymphocytes # (M) 0.49 k/uL (1.0-4.8); Metamyelocytes # (M) 0.16 k/uL (0); Metamyelocytes % 2 %; Monocytes # (M) 0.33 k/uL (0-1.0); Myelocytes # (M) 0.08 k/uL (0); Myelocytes % 1 %; Neutrophils % (M) 87 %; Nucleated Red Blood Cells 0 /100 WBC (0-0); Total Cells Counted 200
[2020-10-24 05:52] LABS: Glucose,Whole Blood 167 mg/dL (75-99)
--- NOTE | 2020-10-24 06:38 | XR ---
EXAMINATION TYPE: XR chest 1V portable DATE OF EXAM: 10/24/2020 CLINICAL HISTORY: Difficulty breathing progress study. TECHNIQUE: Single AP portable semiupright view of the chest is obtained. COMPARISON: Chest x-ray from one day earlier and older studies FINDINGS: Stable left subclavian central venous catheter. Overlying sternal wires and mediastinal cl ips redemonstrated. Persistent mild cardiomegaly with moderate-sized left pleural effusion. Left apical pleural thickenin g and/or fluid redemonstrated. Associated left basilar compressive atelectasis. Right lung is clear. Osseous structures are intact. IMPRESSION: Cardiomegaly with moderate left-sided pleural fluid collection redemonstrated. No signifi cant change from one day earlier.
[2020-10-24] MEDS: LEVOTHYROXINE 88 MCG TAB PO SCH (06:57)
[2020-10-24] MEDS: FUROSEMIDE 10 MG/ML 4 ML VIAL IV SCH (07:20)
[2020-10-24] MEDS: SODIUM CHLORIDE 0.9% 1,000 ML IV SCH ×2 (07:23→10:57)
[2020-10-24] MEDS ORDERED: FUROSEMIDE 10 MG/ML 4 ML VIAL IV STA (07:29)
[2020-10-24] MEDS: INSULIN DETEMIR (LEVEMIR) 100 UNIT/ML SYR SQ SCH (07:38)
[2020-10-24] MEDS ORDERED: SODIUM CHLORIDE 0.9% 500 ML 250 ML IV ONE (08:00)
[2020-10-24 08:04] LABS: ABG Base Excess -10.1 mmol/L; ABG HCO3 16 mmol/L (21-25); ABG Oxygen Saturation 98.7 % (94-97); ABG PCO2 30 mmHg (35-45); ABG PH 7.33 (7.35-7.45); ABG PO2 153 mmHg (83-108); ABG TCO2 17 mmol/L (19-24); Allen Test Performed? Yes
--- NOTE | 2020-10-24 08:04 | XR ---
EXAMINATION TYPE: XR chest 1V portable DATE OF EXAM: 10/24/2020 CLINICAL HISTORY: Difficulty breathing progress study. TECHNIQUE: Single AP portable upright view of the chest is obtained. COMPARISON: Chest x-ray from earlier today and older studies FINDINGS: Stable left subclavian central venous catheter. Overlying sternal wires and mediastinal cl ips redemonstrated. Persistent cardiomegaly with moderate-sized left pleural effusion. Associated left basilar compressiv e atelectasis. Left apical pleural thickening and/or fluid improved. Right lung remains predominantly clear. Osseous structures are intact. Persistent bilateral hilar prominence suggesting underlying pu lmonary artery hypertension. IMPRESSION: Cardiomegaly with moderate left-sided pleural fluid collection redemonstrated. Improved a pical opacity otherwise no significant interval change from earlier today.
[2020-10-24] MEDS ORDERED: NOREPINEPHRIN 4 MG-0.9% NS PMX 4 MG/250 ML ML IV ONE (08:06)
[2020-10-24] MEDS ORDERED: SODIUM BICARB 8.4% 50 ML SYR (1 MEQ/ML) ONE (08:10)
[2020-10-24] MEDS: NOREPINEPHRINE 4 MG in SODIUM CHLORIDE 0.9% 250 ML IV SCH ×6 (08:15→22:20)
--- NOTE | 2020-10-24 08:31 | P.PN ---
Subjective Patient is seen in follow-up for acute kidney injury. Renal function a little worse today. This morning the patient was more tachypnea can lethargic. She is currently on nonrebreather. Blood pressure was initially reading in the systolic 50s and then came up to the 90s. Patient not responding much to verbal commands. Vital signs: Tachycardic and hypotensive. General: Appears lethargic. HEENT: On nonrebreather. LUNGS: Breath sounds decreased. HEART: Tachycardic. ABDOMEN: Soft, obese. EXTREMITITES: 1+ edema. Objective - Vital Signs Vital signs: Vital Signs Temp 97.7 F 10/24/20 04:00 Pulse 122 H 10/24/20 07:00 Resp 35 H 10/24/20 07:00 BP 144/66 10/24/20 07:00 Pulse Ox 91 L 10/24/20 07:00 Intake & Output 10/23/20 10/24/20 10/24/20 18:59 06:59 18:59 Intake Total 409 303 23 Output Total 320 135 0 Balance 89 168 23 Weight 106.7 kg 108.5 kg Intake: IV 409 303 23 0.9 pressure bag 39 33 3 Sodium Chloride 0.9% 1, 220 220 20 000 ml @ 20 mls/hr IV . Q24H [facility] Rx#:[id number] ceFAZolin 2 gm In Sodium 50 Chloride 0.9% 50 ml @ 100 mls/hr IVPB Q12HR [facility] Rx #:[id number] ceFAZolin 2 gm In Sodium 100 50 Chloride 0.9% 50 ml @ 100 mls/hr IVPB Q8HR [facility] Rx# :[id number] Output: Urine 320 135 0 Other: Voiding Method Indwelling Catheter Indwelling Catheter # Bowel Movements 1 ABP, PAP, CO, CI - Last Documented Arterial Blood Pressure 128/60 - Labs CBC & Chem 7: 10/24/20 03:42 10/24/20 03:42 Labs: Abnormal Lab Results - Last 24 Hours (Table) 10/23/20 10/23/20 10/23/20 Range/Units 10:27 11:29 12:06 RBC (3.80-5.40) m/uL Hgb (11.4-16.0) gm/dL Plt Count (150-450) k/uL Lymphocytes # (Manual) (1.0-4.8) k/uL Metamyelocytes # (Man) (0) k/uL Myelocytes # (Manual) (0) k/uL ABG pH (7.35-7.45) ABG pCO2 (35-45) mmHg ABG pO2 (83-108) mmHg ABG HCO3 (21-25) mmol/L ABG Total CO2 (19-24) mmol/L ABG O2 Saturation (94-97) % BUN (7-17) mg/dL Creatinine (0.52-1.04) mg/dL Glucose (74-99) mg/dL POC Glucose (mg/dL) 134 H 147 H 143 H (75-99) mg/dL Calcium (8.4-10.2) mg/dL 10/23/20 10/23/20 10/24/20 Range/Units 16:10 18:57 00:54 RBC (3.80-5.40) m/uL Hgb (11.4-16.0) gm/dL Plt Count (150-450) k/uL Lymphocytes # (Manual) (1.0-4.8) k/uL Metamyelocytes # (Man) (0) k/uL Myelocytes # (Manual) (0) k/uL ABG pH (7.35-7.45) ABG pCO2 (35-45) mmHg ABG pO2 (83-108) mmHg ABG HCO3 (21-25) mmol/L ABG Total CO2 (19-24) mmol/L ABG O2 Saturation (94-97) % BUN (7-17) mg/dL Creatinine (0.52-1.04) mg/dL Glucose (74-99) mg/dL POC Glucose (mg/dL) 150 H 178 H 150 H (75-99) mg/dL Calcium (8.4-10.2) mg/dL 10/24/20 10/24/20 10/24/20 Range/Units 03:42 03:42 05:50 RBC 3.61 L (3.80-5.40) m/uL Hgb 11.3 L (11.4-16.0) gm/dL Plt Count 64 L (150-450) k/uL Lymphocytes # (Manual) 0.49 L (1.0-4.8) k/uL Metamyelocytes # (Man) 0.16 H (0) k/uL Myelocytes # (Manual) 0.08 H (0) k/uL ABG pH (7.35-7.45) ABG pCO2 (35-45) mmHg ABG pO2 (83-108) mmHg ABG HCO3 (21-25) mmol/L ABG Total CO2 (19-24) mmol/L ABG O2 Saturation (94-97) % BUN 53 H (7-17) mg/dL Creatinine 1.24 H (0.52-1.04) mg/dL Glucose 157 H (74-99) mg/dL POC Glucose (mg/dL) 167 H (75-99) mg/dL Calcium 8.2 L (8.4-10.2) mg/dL 10/24/20 Range/Units 08:02 RBC (3.80-5.40) m/uL Hgb (11.4-16.0) gm/dL Plt Count (150-450) k/uL Lymphocytes # (Manual) (1.0-4.8) k/uL Metamyelocytes # (Man) (0) k/uL Myelocytes # (Manual) (0) k/uL ABG pH 7.33 L (7.35-7.45) ABG pCO2 30 L (35-45) mmHg ABG pO2 153 H (83-108) mmHg ABG HCO3 16 L (21-25) mmol/L ABG Total CO2 17 L (19-24) mmol/L ABG O2 Saturation 98.7 H (94-97) % BUN (7-17) mg/dL Creatinine (0.52-1.04) mg/dL Glucose (74-99) mg/dL POC Glucose (mg/dL) (75-99) mg/dL Calcium (8.4-10.2) mg/dL Microbiology - Last 24 Hours (Table) 10/20/20 04:00 Blood Culture - Preliminary Blood No Growth after 96 hours 10/20/20 10:00 Blood Culture - Preliminary Blood No Growth after 72 hours 10/20/20 10:00 Blood Culture - Preliminary Blood No Growth after 72 hours 10/19/20 10:00 Blood Culture - Preliminary Blood No Growth after 96 hours Assessment and Plan Plan: Assessment: 1. Acute kidney injury secondary to ATN secondary to hypotension and sepsis. Creatinine 1.24 today. 2. MSSA bacteremia maintained on antibiotics. 3. Metabolic acidosis secondary to acute kidney injury. Also had DKA on admission. 4. Acute hypoxic respiratory failure. 5. History of non-small cell lung cancer. Plan: Patient received 80 mg of IV Lasix this morning and urine output remains low. I will give 2 A of sodium bicarb IV push now. 250 mL bolus of normal saline once now. Initiate Levophed if blood pressure not improved. Continue to monitor renal function and urine output.
[2020-10-24] MEDS: PANTOPRAZOLE 40 MG/10 ML VIAL IVP SCH (08:43)
[2020-10-24] MEDS ORDERED: SODIUM CHLORIDE 0.9% 1,000 ML IV ONE ×3 (08:48→19:00)
[2020-10-24] MEDS ORDERED: VANCOMYCIN IV PER PHARMACY 1 EACH MISC MISCELLANE PRN (08:56)
[2020-10-24] MEDS: METOPROLOL TARTRATE 25 MG TAB PO SCH (09:02)
[2020-10-24] MEDS: ISOSORBIDE MONONITRATE ER 30 MG TAB.ER.24H PO SCH (09:02)
[2020-10-24] MEDS: ASPIRIN 81 MG PO SCH (09:02)
--- NOTE | 2020-10-24 09:03 | P.PN ---
Subjective Progress Note Date: 10/24/20 75-year-old female patient known history of non-small cell lung cancer locally advanced stage III be treated with a combination of chemoradiation therapy with favorable response. The patient was considered for surgical resection and was able to be nonsurgical due to borderline lung function and location of the tumor. The patient had an FEV1 of 60% of predicted. The patient was started with the immunotherapy for a while. She also has history of CHF with an ejection fraction of 3035% with global hypokinesis, CAD with previous bypass surgery in 2005 and previous non-STEMI and diabetes mellitus. The patient came into the emergency department yesterday because of altered mental status and body aches and pains at home. The patient was initially tachycardic with a heart rate of 117. The blood work showed a white cell count of 11.7, sodium was 131 with a potassium level of 5.3 and a serum bicarb of 14 with anion gap of 17. BUN was 55 with a creatinine of 2.3. Glucose was 47. Lactic acid level was 3.8 and a magnesium of 1.8 and troponin of 0.9 initially and it maxed out at 1.2 suggestive an acute non-STEMI.. UA was negative. COVID-19 testing was negative. The lactic acid level was as high as 7.5. Chest x-ray was consistent with a left suprahilar mass and a small left-sided pleural effusion. The patient was running a temperature of 99.5. She was complaining of shortness of breath. Her chest x-ray also showed a moderate-sized left-sided pleural effusion along with some volume loss in the left suprahilar mass. The patient has not received any treatment regarding her malignancy for the past few years. Most recent PET/CT from 08/21/2020 showed no areas of new metabolic activity to suggest recurrent tumor. There was small to moderate-sized left-sided pleural effusion that had shown some increased interval size compared to earlier PET/CT. This morning, the patient is calm and comfortable. No signs of any major respiratory distress. She remained in 100% nonrebreather facemask and her pulse ox is in the order of 95-99%. She didn't use the BiPAP overnight depression of 12/6 with an FiO2 of 50%. She was given a total of 4 L of IV fluids overnight. Urine output in order of 10 mL an hour. CAT scan of the abdomen and pelvis was completed and showed lateral pleural effusions along with cardiomegaly. No acute intra-abdominal pathology. Her morning INR is at 4.9. She is on insulin drip running at 1.12 units hour. After being given 4 L of IV fluid, the patient continued to be running some low blood pressure. She is also on norepinephrine infusion this morning at a dose of 0.16 mcg/kg per minute. Most recent blood pressure is 120/51. She has an arterial radial line on the right. No tachycardia. She is currently in normal sinus rhythm. 10/20/2020, the patient is being seen in follow-up in the intensive care unit. Events from yesterday were noted. After my morning evaluation, I reevaluated this patient and ICU at around 3:00 in the afternoon. The patient was becoming progressively more septic. She was becoming progressively more acidotic, tachypneic, tachycardic, hypotensive, urine output was low and the patient was very much cold and clammy. Her lactic acid level was also on the rise. Based on that, I inserted a triple lumen catheter and was started fluid resuscitation. We also intubated the patient with on a mechanical ventilator. The patient's subsequent fitter and turner to have positive blood cultures with MSSA. IDs aware and the patient was started on IV cefazolin. 2 cultures of the blood are positive. This morning, the patient is sedated with propofol and probably was running at 30 mcg/kg per minute and the patient is calm and comfortable. She is intubated on a mechanical ventilator. She is an assist-control mode at the rate of 32 with a tidal volume of 500 and FiO2 of 35% with a PEEP of 5. Chest x-ray showing some atelectatic changes/effusion the left lung base. Right lung essentially clear. ET tube is in a good location and the patient has a triple lumen catheter in the left subclavian. No significant orotracheal secretions. She is quite success with the mechanical ventilator. She is able to generate a minute ventilation of 16.3 L with a peak airway pressure of around 26. Hemodynamically, the patient was given a total of 6 L of IV fluid bolus. She was also on a bicarb infusion initially at a dose of 100 mL an hour and currently she is at 50 mL an hour. Urine output has improved and the patient is producing urine output in the order of 75 mL an hour. Also, she remains on pressors. Norepinephrine infusion is running at 0.05 mcg/kg per minute. Insulin drip is also at 1.5 units an hour. On her labs, acid peaked at 10 and the most recent lactic acid level is at 3.4. The serum bicarb from this morning is at 16. Her BUN is at 64 with a creatinine of 2.4. Creatinine peaked at 3.46 and this is from yesterday noontime. She does have a component of shock liver and the LFTs are also abnormal with an AST of 1367 and ALP of 284. Bilirubin is at 1.5. The white cell count today is at 9.6 with a hemoglobin of 12.3. Platelet count has dropped to 102 pro-calcitonin level is up to 16.1. Serum cortisol was at 95 and no hydrocortisone was given. Troponins were also positive and a peaked at 1.2. Cardiac cardiac rhythm is atrial fibrillation with a controlled rate. 10/21/2020, I'm seeing the patient for a follow-up. She has done good progress and the patient septic shock was treated with antibiotics with IV cefazolin. Repeat blood cultures been negative. Patient was found to have MSSA in the blood. In general, she is doing better. Her lactic acid levels have improved. Hemodynamics improved and she is on minimal amount of pressors at this point in time and urine output is also improved. The patient this morning is sedated with propofol which is running at 15 mcg/kg per minute. She is on a mechanical ventilator with an assist-control mode at the rate of 20 with a tidal volume of 500 and FiO2 of 35% with a PEEP of 5. Blood gases from today is showing a pH of 7.52 with a pCO2 of 31 and pO2 of 130. Chest x-ray is unchanged and the patient has a left perihilar opacity consistent with non-small cell lung cancer in addition to chronic left-sided pleural effusion and some elevation of the left hemidiaphragm. Her DKA has completely recovered and the patient is currently off insulin drip and she is on Levemir insulin for blood sugar control. The patient is on IV cefazolin for her underlying MSSA septic shock. Shock liver is improving. Kidney injury is improving. Creatinine is down to 1.8. Pressors requirements have improved. No other significant issues otherwise. We are the process of getting this patient a sedation holiday and assess her underlying mental status and readiness to wean.\ 10/22/2020, I'm seeing this patient for a follow-up in the intensive care unit. The patient is a case of septic shock with multisystem organ failure and respi ratory failure. The patient has improved considerably. Cultures of the blood was positive for MSSA and patient is currently on IV cefazolin. Repeat cultures of been negative. Hemodynamically improved and she is currently off pressors. Acute kidney injury is also improving. In terms of sedation, the patient was given a sedation holiday and she was very slow to recover. It took her till late in the evening to demonstrate some neurologic recovery and based on that no weaning was done. The patient was placed back on sedation and earlier this morning she was taken off sedation and this morning she is following some simple commands and answering questions appropriately. She is extremely weak. She is on a mechanical ventilator patient is an assist-control mode with a rate of 12 with a tidal volume of 450 and FiO2 of 35% with a PEEP of 5. Blood gases showed a pH of 7.5 with a pCO2 of 36 and pO2 122. She remains in atrial fibrillation. She is on IV heparin. INR is down to 1.4 and the PT he is at 41. Hemoglobin is at 12.5. White cell count is at 7.1. Chest x-ray is not showing any interval change. The patient was given a dose of Lasix by cardiology yesterday. Creatinine is improving and is currently down to 1.26. On today's evaluation of 10/20/2020, the patient is awake and communicating. As stated earlier the patient was extubated. The patient was a case of sepsis secondary to MSSA and the patient is currently on cefazolin IV. Doing well. Hemodynamically stable. Renal function is improving. She remains in atrial fibrillation. IV heparin was discontinued as the patient developed some thrombocytopenia. We will monitor the platelet counts. We'll start the patient on antibiotic ventilation with warfarin once she is able to swallow. She did have 2 bedside swallow evaluation that she failed an official swallow evaluation was done by speech pathology. Otherwise, the patient is doing well. She is over the week. She is following commands. No signs of respiratory distress. Breathing is nonlabored. The creatinine is at 0.7. Rest of the electrodes are all within normal limits. The white cell count is 7.5 with a hemoglobin of 11.7. Chest x-ray showing some limited apical opacity in left basilar airspace disease On the morning of 10/24/2020, the patient he compensated. At around 6:00 this morning, the patient acutely became diaphoretic and tachypneic hypoxic and tachycardic. Immediately, the patient was started back on BiPAP which is cu rrently running at a pressure of 14/6 with an FiO2 of 50%. This improved her oxygenation and her pulse ox was low at 76% and currently she is up to 100%. She the is in atrial fibrillation and she is at the rapid ventricular response with a heart rate in the range of 100 to 115, irregular. The patient is not producing any urine output. She was given a dose of Lasix thinking that she may be going into pulmonary edema. She was given a total of 80 mg of IV Lasix without any significant response. At this point in time, she is on norepinephrine infusion which is running at 0.15 mcg/kg per minute for hemodynamic support. Most recent BP systolic is 98 mmHg. On her blood work, the patient has shown a white cell count of 8.2 with hemoglobin of 11.3. Platelet count is slightly improved which is up to 64 and noted the patient is taken off the IV heparin due to underlying thrombocytopenia. Her BUN at 53 with a creatinine of 1.2 and a serum bicarb is down to 23. Note that the patient was recovering from his septic shock. She had gotten much better with improvement in her overall hemodynamics and the renal function and metabolic acidosis. This was obviously a setback. She was on IV Regarding MSSA Bacteremia. She Is Known to Have Advanced Cardiomyopathy with Ejection Fraction of 20-25%. No Abdominal Pain. No Diarrhea. No Chest Pain. No Focal Neurological Deficits. . The blo od. This was done earlier this morning showed a pH of 7.33 with a pCO2 of 30 and pO2 of 153 and this was done in the BiPAP. As such, the patient is acidotic and this is probably metabolic acidosis. She is able to ventilate adequately on the BiPAP pushing down the pCO2 down to 30. There is obvious a component of metabolic acidosis compared this blood gases the earlier ones. She has a subclavian triple-lumen catheter in place. Exit site is dry clean and intact. Note the patient was quite weak since her extubation. She hasn't passed the swallow evaluation. An official swallow evaluation was done yesterday which she failed and as such she has been able to eat anything oral postextubation. Objective - Vital Signs Vital signs: Vital Signs Temp 98.3 F 10/24/20 07:45 Pulse 109 H 10/24/20 08:30 Resp 33 H 10/24/20 08:30 BP 52/28 10/24/20 08:30 Pulse Ox 100 10/24/20 08:30 Intake & Output 10/23/20 10/24/20 10/24/20 18:59 06:59 18:59 Intake Total 409 303 46 Output Total 320 135 6 Balance 89 168 40 Weight 106.7 kg 108.5 kg Intake: IV 409 303 46 0.9 pressure bag 39 33 6 Sodium Chloride 0.9% 1, 220 220 40 000 ml @ 20 mls/hr IV . Q24H [facility] Rx#:[id number] ceFAZolin 2 gm In Sodium 50 Chloride 0.9% 50 ml @ 100 mls/hr IVPB Q12HR [facility] Rx #:[id number] ceFAZolin 2 gm In Sodium 100 50 Chloride 0.9% 50 ml @ 100 mls/hr IVPB Q8HR [facility] Rx# :[id number] Intake, IV Titration 0 Amount Norepinephrine 4 mg In 0 Sodium Chloride 0.9% 250 ml @ 0.05 MCG/KG/MIN 20. 669 mls/hr IV .[id number] [facility] Rx#:[id number] Output: Urine 320 135 6 Other: Voiding Method Indwelling Catheter Indwelling Catheter # Bowel Movements 1 ABP, PAP, CO, CI - Last Documented Arterial Blood Pressure 128/60 - Exam Gen. appearance, comfortable no acute distress.appearance, comfortable, the patient currently on BiPAP at a pressure of 14/6 cm of water with an FiO2 of 100%. She is still tachypneic although much more comfortable while on the BiPAP. She seems to be using some degree of abdominal muscles of breathing and the bleeding is still labored although improved once she was placed on a BiPAP. Head exam was generally normal. There was no scleral icterus or corneal arcus. Mucous membranes were moist. Neck was supple and without jugular venous distension, thyromegaly, or carotid bruits. Carotids were easily palpable bilaterally. There was no adenopathy. Lungs were clear to auscultation and percussion, and with normal diaphragmatic excursion. No wheezes or rales were noted. Cardiac exam revealed the PMI to be normally situated and sized. The rhythm was regular and no extrasystoles were noted during several minutes of auscultation. The first and second heart sounds were irregular consistent with atrial fibrillation.. There were no murmurs, rubs, clicks, or gallops. Abdominal exam revealed normal bowel sounds. The abdomen was soft, non-tender, and without masses, organomegaly, or appreciable enlargement of the abdominal aorta. Examination of the extremities revealed easily palpable radial, femoral and pedal pulses. There was no cyanosis, clubbing or edema. Examination of the skin revealed no evidence of significant rashes, suspicious appearing nevi or other concerning lesions. Neurologically, the patient is being evaluated neurologically. She has global motor weakness in all 4 extremities, no focal neurological deficit. She is able to follow simple commands - Labs CBC & Chem 7: 10/24/20 03:42 10/24/20 03:42 Labs: Abnormal Lab Results - Last 24 Hours (Table) 10/23/20 10/23/20 10/23/20 Range/Units 10:27 11:29 12:06 RBC (3.80-5.40) m/uL Hgb (11.4-16.0) gm/dL Plt Count (150-450) k/uL Lymphocytes # (Manual) (1.0-4.8) k/uL Metamyelocytes # (Man) (0) k/uL Myelocytes # (Manual) (0) k/uL ABG pH (7.35-7.45) ABG pCO2 (35-45) mmHg ABG pO2 (83-108) mmHg ABG HCO3 (21-25) mmol/L ABG Total CO2 (19-24) mmol/L ABG O2 Saturation (94-97) % BUN (7-17) mg/dL Creatinine (0.52-1.04) mg/dL Glucose (74-99) mg/dL POC Glucose (mg/dL) 134 H 147 H 143 H (75-99) mg/dL Calcium (8.4-10.2) mg/dL 10/23/20 10/23/20 10/24/20 Range/Units 16:10 18:57 00:54 RBC (3.80-5.40) m/uL Hgb (11.4-16.0) gm/dL Plt Count (150-450) k/uL Lymphocytes # (Manual) (1.0-4.8) k/uL Metamyelocytes # (Man) (0) k/uL Myelocytes # (Manual) (0) k/uL ABG pH (7.35-7.45) ABG pCO2 (35-45) mmHg ABG pO2 (83-108) mmHg ABG HCO3 (21-25) mmol/L ABG Total CO2 (19-24) mmol/L ABG O2 Saturation (94-97) % BUN (7-17) mg/dL Creatinine (0.52-1.04) mg/dL Glucose (74-99) mg/dL POC Glucose (mg/dL) 150 H 178 H 150 H (75-99) mg/dL Calcium (8.4-10.2) mg/dL 10/24/20 10/24/20 10/24/20 Range/Units 03:42 03:42 05:50 RBC 3.61 L (3.80-5.40) m/uL Hgb 11.3 L (11.4-16.0) gm/dL Plt Count 64 L (150-450) k/uL Lymphocytes # (Manual) 0.49 L (1.0-4.8) k/uL Metamyelocytes # (Man) 0.16 H (0) k/uL Myelocytes # (Manual) 0.08 H (0) k/uL ABG pH (7.35-7.45) ABG pCO2 (35-45) mmHg ABG pO2 (83-108) mmHg ABG HCO3 (21-25) mmol/L ABG Total CO2 (19-24) mmol/L ABG O2 Saturation (94-97) % BUN 53 H (7-17) mg/dL Creatinine 1.24 H (0.52-1.04) mg/dL Glucose 157 H (74-99) mg/dL POC Glucose (mg/dL) 167 H (75-99) mg/dL Calcium 8.2 L (8.4-10.2) mg/dL 10/24/20 Range/Units 08:02 RBC (3.80-5.40) m/uL Hgb (11.4-16.0) gm/dL Plt Count (150-450) k/uL Lymphocytes # (Manual) (1.0-4.8) k/uL Metamyelocytes # (Man) (0) k/uL Myelocytes # (Manual) (0) k/uL ABG pH 7.33 L (7.35-7.45) ABG pCO2 30 L (35-45) mmHg ABG pO2 153 H (83-108) mmHg ABG HCO3 16 L (21-25) mmol/L ABG Total CO2 17 L (19-24) mmol/L ABG O2 Saturation 98.7 H (94-97) % BUN (7-17) mg/dL Creatinine (0.52-1.04) mg/dL Glucose (74-99) mg/dL POC Glucose (mg/dL) (75-99) mg/dL Calcium (8.4-10.2) mg/dL Microbiology - Last 24 Hours (Table) 10/20/20 04:00 Blood Culture - Preliminary Blood No Growth after 96 hours 10/20/20 10:00 Blood Culture - Preliminary Blood No Growth after 72 hours 10/20/20 10:00 Blood Culture - Preliminary Blood No Growth after 72 hours 10/19/20 10:00 Blood Culture - Preliminary Blood No Growth after 96 hours Assessment and Plan Plan: 1 septic shock secondary to staph aureus, MSSA and the patient is currently on IV cefazolin. The exact source is not clear. Could be pulmonary source involving the left lower lobe. this morning, the patient has another acute decompensation where she became diaphoretic, hypoxic, tachycardic and she dropped her urine output and she dropped her pressure. Currently she is on pressors were norepinephrine infusion. No clear indication of a cardiogenic shock or CHF. She was given Lasix without any response. I do suspect a recurrent bouts of sepsis. Antibiotics need to be broadened pending further cultures. The patient is currently on norepinephrine infusion and she is on BiPAP for respiratory support. 2 diabetes mellitus with mild component of DKA on admission, recovered 3 severe metabolic acidosis and lactic acidosis secondary to above , recovered, nevertheless, the repeat blood gases and electrolytes today shows a recurrent acidosis, rule out lactic acidosis 4 hypotension, essentially secondary to septic shock with possibly a cardiogenic component as the patient has an ejection fraction of 20-25% on echocardiogram., Within the patient is currently back on pressors and currently she is on nore pinephrine 5 coronary artery disease with previous bypass surgery 6 abnormal troponin, consider non-STEMI, patient is free of any chest pain, could be sepsis induced troponin leaktroponin leak that 1.28, consider underlying mild component of non-STEMI. 7 paroxysmal atrial fibrillation , currently the patient atrial fibrillation with some degree of rapid ventricular response 8 non-small cell lung cancer, stage IIIB post chemoradiation therapy. Most recent PET scan from August 2020 was essentially within stable state and the patient had no significant metabolic activity noted to suggest tumor recurrence 9 bilateral pleural effusion more so on the left, slight increased in the size of the pleural effusion based on the most recent PET scan 10 acute shock liver, Improving on today's evaluation 11 Coumadin toxicity, without any signs of bleeding, recovered 12 acute kidney injury, improving , creatinine is at 1.2 which is slightly higher compared to yesterday. 13 hypothermia, improving 14 CHF with an ejection fraction of 20-25% 15 THROMBOCYTOPENIA, platelet count is at 64 Plan give the patient a liter of normal saline right now and assess the patient's urine output and blood pressure response. May need to give another liter. Monitor this is CVP and monitor the patient's clinical response and watch for any signs of pulmonary edema Keep the patient on BiPAP for now the same setting Check a lactic acid level, pro-calcitonin, proBNP, troponin, blood cultures 2, urine culture, Stopped IV cefazolin and broaden antibiotic coverage to include a combination of cefepime and vancomycin Keep the patient nothing by mouth for now Restarted IV heparin monitor the platelet count and watch for any signs of bleeding Warfarin is still on hold Will need probably another set of electrolytes by around noon time to assess the progression and watch for any evolving renal failure and further metabolic acidosis Condition is obviously critical and there is a high likelihood that the patient may further decompensated and end up on a respirator again. The family will be updated. Keep In ICU , critically care evaluation, more than 30 minutes. Arterial line may need to be established at a later stage.
[2020-10-24] MEDS: CEFEPIME 2 GM in SODIUM CHLORIDE 0.9% 100 ML IVPB SCH ×2 (09:32→22:18)
[2020-10-24] MEDS: VANCOMYCIN 1,750 MG in SODIUM CHLORIDE 0.9% 500 ML 500 ML IVPB SCH (10:48)
[2020-10-24] MEDS: HEPARIN SOD,PORK IN 0.45% NACL 25,000 UNIT in 0.45% NACL 1 250ML.BAG IV SCH (11:03)
[2020-10-24 11:13] LABS: INR 1.6 (<1.2); Partial Thromboplastin Time 27.3 sec (22.0-30.0); Prothrombin Time 15.7 sec (9.0-12.0)
[2020-10-24 11:41] LABS: Glucose,Whole Blood 137 mg/dL (75-99)
--- NOTE | 2020-10-24 13:03 | P.PN ---
Subjective Progress Note Date: 10/24/20 Patient's clinical condition was worse this morning. She was hypotensive with elevated lactic acid. She was also noted to be hypoxic requiring BiPAP this morning. When I saw her she was off of BiPAP on nasal cannula. Patient is awake and alert. Her daughter is at bedside. Patient appeared weak but was able to answer my questions appropriately. She failed bedside swallow this morning with nursing staff. She is currently nothing by mouth. She is requiring low dose of norepinephrine again this morning. Antibiotic coverage was broadened by intensivists to cefepime and vancomycin. There is no documented fevers. Objective - Vital Signs Vital signs: Vital Signs Temp 97.8 F 10/24/20 12:00 Pulse 91 10/24/20 12:45 Resp 23 10/24/20 12:45 BP 124/99 10/24/20 12:45 Pulse Ox 97 10/24/20 12:45 Intake & Output 10/23/20 10/24/20 10/24/20 18:59 06:59 18:59 Intake Total 078 299 6178.000 Output Total 320 135 63 Balance 89 168 1696.000 Weight 106.7 kg 108.5 kg Intake: IV 792 843 5538 0.9 pressure bag 39 33 15 Sodium Chloride 0.9% 1, 220 220 240 000 ml @ 100 mls/hr IV . Q10H [facility] Rx#:[id number] Sodium Chloride 0.9% 500 1250 ml 250 ml @ 999 mls/hr IV .Q16M [facility] Rx#:[id number] ceFAZolin 2 gm In Sodium 50 Chloride 0.9% 50 ml @ 100 mls/hr IVPB Q12HR [facility] Rx #:[id number] ceFAZolin 2 gm In Sodium 100 50 Chloride 0.9% 50 ml @ 100 mls/hr IVPB Q8HR [facility] Rx# :[id number] Intake, IV Titration 254.000 Amount Norepinephrine 4 mg In 254.000 Sodium Chloride 0.9% 250 ml @ 0.05 MCG/KG/MIN 20. 669 mls/hr IV .[id number] [facility] Rx#:[id number] Output: Urine 320 135 63 Other: Voiding Method Indwelling Catheter Indwelling Catheter Indwelling Catheter # Bowel Movements 1 1 ABP, PAP, CO, CI - Last Documented Arterial Blood Pressure 128/60 - Exam General: The patient is awake and alert, in no distress Eye: there is normal conjunctiva bilaterally. Neck: The neck is supple, there is no JVD. Cardiovascular: Normal S1-S2, no S3-S4, no murmurs. Respiratory: Lungs clear to auscultation bilaterally Gastrointestinal: Abdomen is soft, nontender Musculoskeletal: There is no pedal edema. Neurological:. Speech is normal. Skin: Skin is warm and dry - Labs CBC & Chem 7: 10/24/20 03:42 10/24/20 03:42 Labs: Abnormal Lab Results - Last 24 Hours (Table) 10/23/20 10/23/20 10/24/20 Range/Units 16:10 18:57 00:54 RBC (3.80-5.40) m/uL Hgb (11.4-16.0) gm/dL Plt Count (150-450) k/uL Lymphocytes # (Manual) (1.0-4.8) k/uL Metamyelocytes # (Man) (0) k/uL Myelocytes # (Manual) (0) k/uL PT (9.0-12.0) sec INR (<1.2) ABG pH (7.35-7.45) ABG pCO2 (35-45) mmHg ABG pO2 (83-108) mmHg ABG HCO3 (21-25) mmol/L ABG Total CO2 (19-24) mmol/L ABG O2 Saturation (94-97) % BUN (7-17) mg/dL Creatinine (0.52-1.04) mg/dL Glucose (74-99) mg/dL POC Glucose (mg/dL) 150 H 178 H 150 H (75-99) mg/dL Plasma Lactic Acid Walt (0.7-2.0) mmol/L Calcium (8.4-10.2) mg/dL Troponin I (0.000-0.034) ng/mL 10/24/20 10/24/20 10/24/20 Range/Units 03:42 03:42 05:50 RBC 3.61 L (3.80-5.40) m/uL Hgb 11.3 L (11.4-16.0) gm/dL Plt Count 64 L (150-450) k/uL Lymphocytes # (Manual) 0.49 L (1.0-4.8) k/uL Metamyelocytes # (Man) 0.16 H (0) k/uL Myelocytes # (Manual) 0.08 H (0) k/uL PT (9.0-12.0) sec INR (<1.2) ABG pH (7.35-7.45) ABG pCO2 (35-45) mmHg ABG pO2 (83-108) mmHg ABG HCO3 (21-25) mmol/L ABG Total CO2 (19-24) mmol/L ABG O2 Saturation (94-97) % BUN 53 H (7-17) mg/dL Creatinine 1.24 H (0.52-1.04) mg/dL Glucose 157 H (74-99) mg/dL POC Glucose (mg/dL) 167 H (75-99) mg/dL Plasma Lactic Acid Walt (0.7-2.0) mmol/L Calcium 8.2 L (8.4-10.2) mg/dL Troponin I (0.000-0.034) ng/mL 10/24/20 10/24/20 10/24/20 Range/Units 08:02 09:11 09:11 RBC (3.80-5.40) m/uL Hgb (11.4-16.0) gm/dL Plt Count (150-450) k/uL Lymphocytes # (Manual) (1.0-4.8) k/uL Metamyelocytes # (Man) (0) k/uL Myelocytes # (Manual) (0) k/uL PT (9.0-12.0) sec INR (<1.2) ABG pH 7.33 L (7.35-7.45) ABG pCO2 30 L (35-45) mmHg ABG pO2 153 H (83-108) mmHg ABG HCO3 16 L (21-25) mmol/L ABG Total CO2 17 L (19-24) mmol/L ABG O2 Saturation 98.7 H (94-97) % BUN (7-17) mg/dL Creatinine (0.52-1.04) mg/dL Glucose (74-99) mg/dL POC Glucose (mg/dL) (75-99) mg/dL Plasma Lactic Acid Walt 7.2 H* (0.7-2.0) mmol/L Calcium (8.4-10.2) mg/dL Troponin I 1.570 H* (0.000-0.034) ng/mL 10/24/20 10/24/20 Range/Units 10:28 11:39 RBC (3.80-5.40) m/uL Hgb (11.4-16.0) gm/dL Plt Count (150-450) k/uL Lymphocytes # (Manual) (1.0-4.8) k/uL Metamyelocytes # (Man) (0) k/uL Myelocytes # (Manual) (0) k/uL PT 15.7 H (9.0-12.0) sec INR 1.6 H (<1.2) ABG pH (7.35-7.45) ABG pCO2 (35-45) mmHg ABG pO2 (83-108) mmHg ABG HCO3 (21-25) mmol/L ABG Total CO2 (19-24) mmol/L ABG O2 Saturation (94-97) % BUN (7-17) mg/dL Creatinine (0.52-1.04) mg/dL Glucose (74-99) mg/dL POC Glucose (mg/dL) 137 H (75-99) mg/dL Plasma Lactic Acid Walt (0.7-2.0) mmol/L Calcium (8.4-10.2) mg/dL Troponin I (0.000-0.034) ng/mL Microbiology - Last 24 Hours (Table) 10/20/20 10:00 Blood Culture - Preliminary Blood No Growth after 96 hours 10/20/20 10:00 Blood Culture - Preliminary Blood No Growth after 96 hours 10/19/20 10:00 Blood Culture - Preliminary Blood No Growth after 120 hours 10/20/20 04:00 Blood Culture - Preliminary Blood No Growth after 96 hours Assessment and Plan Assessment: This is a 75-year-old female with past medical history significant for left lung cancer now in remission that presented to the emergency room with fevers. Patient was evaluated in the ER and admitted to the hospital for further management of her medical problems noted below. 1. Severe sepsis with septic shock, treated with aggressive IV fluid hydration and antibiotic. Required vasopressors till 10/22 then again today 10/24. Source of infection underlying pneumonia/bacteremia. Influenza, Covid-19, and C. diff screen negative 2. MSSA bacteremia, Repeat blood culture from 10/19 negative to date. Started on on IV cefazolin with stop date of 11/02 (2 weeks of antibiotics since negative blood culture). I consulted infectious disease for further evaluation. Echocardiogram with no intracardiac source. Computed tomography scan of the abdomen and pelvis with no source of infection 3. DKA, mild on presentation. Required insulin drip on presentation. Anion gap closed. Received aggressive IV fluid hydration. Now transitioned to subcutaneous insulin 4. Acute kidney injury, oliguric. hyperkalemia: Resolved. Avoid nephrotoxins. Nephrology consulted for further evaluation. 5. Acute respiratory failure requiring sedation and mechanical intubation successfully extubated 5. Metabolic acidosis secondary to above 6. Liver shock with coagulopathy secondary to hypotension. Liver enzymes trending now 7. Troponin elevation, non-thrombotic troponin leak secondary to severe sepsis. Cardiology consulted for further evaluation. Echocardiogram showed EF of 20- 25% 8. Chronic atrial fibrillation on anticoagulation with Coumadin, supratherapeutic INR on presentation status post vitamin K. Currently on IV heparin will continue to monitor for thrombocytopenia 9. Chronic congestive heart failure, systolic. Lasix 40 mg daily ordered 10. History of lung cancer in remission 11. Worsening thrombocytopenia: Probably secondary to presentation with severe sepsis. IV heparin was discontinued. We will continue to monitor closely. Today, I reviewed her medication list and lab work results Bedside swallow evaluation failed awaiting speech therapy Wean off vasopressors as possible Repeat blood culture sent down escalate antibiotic when possible Repeat lab work in the morning PT/OT evaluation
[2020-10-24 13:05] LABS: Calcium 7.9 mg/dL (8.4-10.2); Potassium 5.1 mmol/L (3.5-5.1)
--- NOTE | 2020-10-24 15:49 | P.PN ---
Subjective Progress Note Date: 10/24/20 This patient with the extensive multivessel coronary artery disease with high risk angioplasty and stenting of the left main, ischemic cardio myopathy was admitted to the hospital with the hypotension, sepsis requiring respiratory support and ventilation. Patient was extubated about 24 hours ago. Patient became hypotensive and acidotic this morning. Seemed to be lethargic. Patient is also hypotensive. Getting IV fluids and vasopressors. Patient is barely arousable. Patient's clinical condition appears to be critical. ID and pulmonary following the patient. Patient also had THROMBOCYTOPENIA. Patient's platelet count improved. Patient was restarted on heparin. Overall clinical condition seemed to be critical. We'll continue with supportive measures. Prognosis poor Objective - Vital Signs Vital signs: Vital Signs Temp 97.8 F 10/24/20 12:00 Pulse 101 H 10/24/20 15:15 Resp 28 H 10/24/20 15:15 BP 107/77 10/24/20 15:15 Pulse Ox 96 10/24/20 15:15 Intake & Output 10/23/20 10/24/20 10/24/20 18:59 06:59 18:59 Intake Total 323 426 2028.849 Output Total 320 135 238 Balance 89 168 2252.849 Weight 106.7 kg 108.5 kg Intake: IV 756 481 0497 0.9 pressure bag 39 33 27 Sodium Chloride 0.9% 1, 220 220 340 000 ml @ 100 mls/hr IV . Q10H [facility] Rx#:[id number] Sodium Chloride 0.9% 500 1250 ml 250 ml @ 999 mls/hr IV .Q16M [facility] Rx#:[id number] Vancomycin 1,750 mg In 501 Sodium Chloride 0.9% 500 ml 500 ml @ 167 mls/hr IVPB Q24H [facility] Rx#: [id number] ceFAZolin 2 gm In Sodium 50 Chloride 0.9% 50 ml @ 100 mls/hr IVPB Q12HR [facility] Rx #:[id number] ceFAZolin 2 gm In Sodium 100 50 Chloride 0.9% 50 ml @ 100 mls/hr IVPB Q8HR [facility] Rx# :[id number] Intake, IV Titration 372.849 Amount Norepinephrine 4 mg In 372.849 Sodium Chloride 0.9% 250 ml @ 0.05 MCG/KG/MIN 20. 669 mls/hr IV .[id number] [facility] Rx#:[id number] Output: Urine 320 135 238 Other: Voiding Method Indwelling Catheter Indwelling Catheter Indwelling Catheter # Bowel Movements 1 1 ABP, PAP, CO, CI - Last Documented Arterial Blood Pressure 128/60 - Exam GENERAL EXAM: Patient is drowsy but arousable HEENT: Normocephalic. CHEST: No chest wall deformity. LUNGS: Diminished air exchange HEART: S1 and S2 normal. Distant heart sounds ABDOMEN: Soft. SKIN: No rashes CENTRAL NERVOUS SYSTEM: Deferred EXTREMITIES: No cyanosis, clubbing or edema. - Labs CBC & Chem 7: 10/24/20 03:42 10/24/20 12:25 Labs: Abnormal Lab Results - Last 24 Hours (Table) 10/23/20 10/23/20 10/24/20 Range/Units 16:10 18:57 00:54 RBC (3.80-5.40) m/uL Hgb (11.4-16.0) gm/dL Plt Count (150-450) k/uL Lymphocytes # (Manual) (1.0-4.8) k/uL Metamyelocytes # (Man) (0) k/uL Myelocytes # (Manual) (0) k/uL PT (9.0-12.0) sec INR (<1.2) ABG pH (7.35-7.45) ABG pCO2 (35-45) mmHg ABG pO2 (83-108) mmHg ABG HCO3 (21-25) mmol/L ABG Total CO2 (19-24) mmol/L ABG O2 Saturation (94-97) % Chloride (98-107) mmol/L Carbon Dioxide (22-30) mmol/L BUN (7-17) mg/dL Creatinine (0.52-1.04) mg/dL Glucose (74-99) mg/dL POC Glucose (mg/dL) 150 H 178 H 150 H (75-99) mg/dL Plasma Lactic Acid Walt (0.7-2.0) mmol/L Calcium (8.4-10.2) mg/dL Troponin I (0.000-0.034) ng/mL 10/24/20 10/24/20 10/24/20 Range/Units 03:42 03:42 05:50 RBC 3.61 L (3.80-5.40) m/uL Hgb 11.3 L (11.4-16.0) gm/dL Plt Count 64 L (150-450) k/uL Lymphocytes # (Manual) 0.49 L (1.0-4.8) k/uL Metamyelocytes # (Man) 0.16 H (0) k/uL Myelocytes # (Manual) 0.08 H (0) k/uL PT (9.0-12.0) sec INR (<1.2) ABG pH (7.35-7.45) ABG pCO2 (35-45) mmHg ABG pO2 (83-108) mmHg ABG HCO3 (21-25) mmol/L ABG Total CO2 (19-24) mmol/L ABG O2 Saturation (94-97) % Chloride (98-107) mmol/L Carbon Dioxide (22-30) mmol/L BUN 53 H (7-17) mg/dL Creatinine 1.24 H (0.52-1.04) mg/dL Glucose 157 H (74-99) mg/dL POC Glucose (mg/dL) 167 H (75-99) mg/dL Plasma Lactic Acid Walt (0.7-2.0) mmol/L Calcium 8.2 L (8.4-10.2) mg/dL Troponin I (0.000-0.034) ng/mL 10/24/20 10/24/20 10/24/20 Range/Units 08:02 09:11 09:11 RBC (3.80-5.40) m/uL Hgb (11.4-16.0) gm/dL Plt Count (150-450) k/uL Lymphocytes # (Manual) (1.0-4.8) k/uL Metamyelocytes # (Man) (0) k/uL Myelocytes # (Manual) (0) k/uL PT (9.0-12.0) sec INR (<1.2) ABG pH 7.33 L (7.35-7.45) ABG pCO2 30 L (35-45) mmHg ABG pO2 153 H (83-108) mmHg ABG HCO3 16 L (21-25) mmol/L ABG Total CO2 17 L (19-24) mmol/L ABG O2 Saturation 98.7 H (94-97) % Chloride (98-107) mmol/L Carbon Dioxide (22-30) mmol/L BUN (7-17) mg/dL Creatinine (0.52-1.04) mg/dL Glucose (74-99) mg/dL POC Glucose (mg/dL) (75-99) mg/dL Plasma Lactic Acid Walt 7.2 H* (0.7-2.0) mmol/L Calcium (8.4-10.2) mg/dL Troponin I 1.570 H* (0.000-0.034) ng/mL 10/24/20 10/24/20 10/24/20 Range/Units 10:28 11:39 12:25 RBC (3.80-5.40) m/uL Hgb (11.4-16.0) gm/dL Plt Count (150-450) k/uL Lymphocytes # (Manual) (1.0-4.8) k/uL Metamyelocytes # (Man) (0) k/uL Myelocytes # (Manual) (0) k/uL PT 15.7 H (9.0-12.0) sec INR 1.6 H (<1.2) ABG pH (7.35-7.45) ABG pCO2 (35-45) mmHg ABG pO2 (83-108) mmHg ABG HCO3 (21-25) mmol/L ABG Total CO2 (19-24) mmol/L ABG O2 Saturation (94-97) % Chloride 111 H (98-107) mmol/L Carbon Dioxide 20 L (22-30) mmol/L BUN 56 H (7-17) mg/dL Creatinine 1.35 H (0.52-1.04) mg/dL Glucose 152 H (74-99) mg/dL POC Glucose (mg/dL) 137 H (75-99) mg/dL Plasma Lactic Acid Walt (0.7-2.0) mmol/L Calcium 7.9 L (8.4-10.2) mg/dL Troponin I (0.000-0.034) ng/mL 10/24/20 Range/Units 12:25 RBC (3.80-5.40) m/uL Hgb (11.4-16.0) gm/dL Plt Count (150-450) k/uL Lymphocytes # (Manual) (1.0-4.8) k/uL Metamyelocytes # (Man) (0) k/uL Myelocytes # (Manual) (0) k/uL PT (9.0-12.0) sec INR (<1.2) ABG pH (7.35-7.45) ABG pCO2 (35-45) mmHg ABG pO2 (83-108) mmHg ABG HCO3 (21-25) mmol/L ABG Total CO2 (19-24) mmol/L ABG O2 Saturation (94-97) % Chloride (98-107) mmol/L Carbon Dioxide (22-30) mmol/L BUN (7-17) mg/dL Creatinine (0.52-1.04) mg/dL Glucose (74-99) mg/dL POC Glucose (mg/dL) (75-99) mg/dL Plasma Lactic Acid Walt 2.4 H* (0.7-2.0) mmol/L Calcium (8.4-10.2) mg/dL Troponin I (0.000-0.034) ng/mL Microbiology - Last 24 Hours (Table) 10/20/20 10:00 Blood Culture - Preliminary Blood No Growth after 96 hours 10/20/20 10:00 Blood Culture - Preliminary Blood No Growth after 96 hours 10/19/20 10:00 Blood Culture - Preliminary Blood No Growth after 120 hours 10/20/20 04:00 Blood Culture - Preliminary Blood No Growth after 96 hours Assessment and Plan (1) Sepsis Current Visit: Yes Status: Acute Code(s): A41.9 - SEPSIS, UNSPECIFIED ORGANISM SNOMED Code(s): 44286677 (2) Elevated troponin Current Visit: Yes Status: Acute Code(s): R74.8 - ABNORMAL LEVELS OF OTHER SERUM ENZYMES SNOMED Code(s): 878969847 (3) History of lung cancer Current Visit: Yes Status: Acute Code(s): Z85.118 - PERSONAL HISTORY OF MALIGNANT NEOPLASM OF BRONCHUS AND LUNG SNOMED Code(s): 139912352 (4) UTI (urinary tract infection) Current Visit: Yes Status: Acute Code(s): N39.0 - URINARY TRACT INFECTION, SITE NOT SPECIFIED SNOMED Code(s): 38575569 (5) CHF (congestive heart failure) Current Visit: No Status: Acute Code(s): I50.9 - HEART FAILURE, UNSPECIFIED SNOMED Code(s): 47030397 (6) Atrial fibrillation Current Visit: Yes Status: Acute Code(s): I48.91 - UNSPECIFIED ATRIAL FIBRILLATION SNOMED Code(s): 80797216 Plan: Continue current medical management. Supportive care. Patient's is critically ill and prognosis is poor
--- NOTE | 2020-10-24 16:28 | PN ---
PROGRESS NOTE DATE OF SERVICE: 10/24/2020 REASON FOR FOLLOWUP: MSSA bacteremia and sepsis. INTERVAL HISTORY: The patient has been afebrile. The patient did have an episode of hypotension for which the patient has received fluid resuscitation. Patient has been started on Levophed. Currently on 10 mics. FiO2 is currently at 97% on 2L nasal cannula. Culture has been obtained. Antibiotic has been switched to cefepime and Vanco by staff development nurse. The patient is currently sleepy, lethargic, but arousable. The patient denies having any chest pain. No shortness of breath or cough. No abdominal pain. No diarrhea has been reported. PHYSICAL EXAMINATION: Blood pressure 107/77, pulse of 101, temperature 97.8. Saturation 99% on room air. General description is an elderly female lying in bed in no distress. Respiratory system: Unlabored breathing, clear to auscultation. Heart: S1, S2. Regular rate and rhythm. Abdomen soft, no tenderness. Extremities: No edema of the feet. LABS: Hemoglobin is 11.3, white count 8.2, BUN of 56, creatinine 1.35, lactic acid was 2.4. DIAGNOSTIC IMPRESSION AND PLAN: Patient with MSSA bacteremia, source likely pneumonia in this patient now with episode of hypotension. Antibiotic has been broadened. We will ore followup on the repeat cultures and clinical condition antibiotic adjusted further if needed. Monitor clinical course as well as kidney function closely. PARMINDERL / MADDIEN: [id number] /
[2020-10-24 17:33] LABS: Glucose,Whole Blood 165 mg/dL (75-99)
--- NOTE | 2020-10-24 18:10 | XR ---
EXAMINATION TYPE: XR chest 1V portable DATE OF EXAM: 10/24/2020 COMPARISON: Earlier same day. HISTORY: Follow-up shortness of breath. TECHNIQUE: Single frontal view of the chest is obtained. FINDINGS: There is unchanged moderate to large left pleural effusion with accompanying opacity. Stab le left central venous catheter and cardiomediastinal silhouette. No pneumothorax. The osseous struc tures are intact. IMPRESSION: No significant interval change.
[2020-10-24 20:17] LABS: HCT 35.4 % (34.0-46.0); HGB 11.1 gm/dL (11.4-16.0); Hypochromasia Marked; MCH 31.6 pg (25.0-35.0); MCHC 31.5 g/dL (31.0-37.0); MCV 100.3 fL (80.0-100.0); Macrocytosis Slight; Mean Platelet Volume 10.2; RBC 3.53 m/uL (3.80-5.40); RDW 15.2 % (11.5-15.5); WBC 20.9 k/uL (3.8-10.6)
[2020-10-24 20:44] LABS: Calcium 7.7 mg/dL (8.4-10.2)
[2020-10-24 20:48] LABS: Potassium 5.9 mmol/L (3.5-5.1)
[2020-10-24 20:58] LABS: Platelet Count 127 k/uL (150-450)
[2020-10-24] MEDS ORDERED: propofoL 100 ML IV ONE (21:43)
[2020-10-24] MEDS ORDERED: ETOMIDATE 2 MG/ML 10 ML VIAL ONE (21:45)
[2020-10-24] MEDS ORDERED: SODIUM CHLORIDE 0.9% 2,000 ML IV ONE (22:00)
--- NOTE | 2020-10-24 22:19 | XR ---
EXAMINATION TYPE: XR chest 1V portable DATE OF EXAM: 10/24/2020 COMPARISON: Today HISTORY: Short of breath TECHNIQUE: FINDINGS: There is endotracheal tube approximately 3.4 cm from the aileen. There is nasogastric tube. Tip is at the gastroesophageal junction. There are sternal wires. There is mild pulmonary congestion . There is some blunting of the costophrenic angles. There is left subclavian catheter with tip in th e superior vena cava. IMPRESSION: Bilateral pleural effusions. There is evidence for congestive heart failure which is the same or slightly worse than exam 5 hours ago. Tubing in fairly good position. NG tube is barely past the gastroesophageal junction.
[2020-10-24 23:20] LABS: ABG Base Excess -6.9 mmol/L; ABG HCO3 18 mmol/L (21-25); ABG Oxygen Saturation 99.5 % (94-97); ABG PCO2 27 mmHg (35-45); ABG PH 7.42 (7.35-7.45); ABG PO2 >400 mmHg (83-108); ABG TCO2 18 mmol/L (19-24); Allen Test Performed? Yes
[2020-10-24 23:25] LABS: Glucose,Whole Blood 160 mg/dL (75-99)
[2020-10-24] MEDS ORDERED: SODIUM BICARB 8.4% 50 ML SYR (1 MEQ/ML) IV ONE (23:40)
[2020-10-24] MEDS ORDERED: CALCIUM GLUCONATE 1 GM in SODIUM CHLORIDE 0.9% 100 ML IVPB ONE (23:40)
[2020-10-24] MEDS ORDERED: INSULIN REGULAR 100 UNIT/ML VIAL (IV) IV ONE (23:40)
[2020-10-24] MEDS ORDERED: DEXTROSE 50% SYRINGE 50 ML IVP ONE (23:40)
[2020-10-24] MEDS ORDERED: CHLORHEXIDINE GLUCONATE 15 ML CUP MUCOUS MEM ONE (23:46)
[2020-10-25] MEDS: INSULIN ASPART (NovoLOG) 100 UNIT/ML VIAL SQ SCH ×5 (00:03→23:04)
[2020-10-25] MEDS: NOREPINEPHRINE 4 MG in SODIUM CHLORIDE 0.9% 250 ML IV SCH ×2 (00:15→04:45)
[2020-10-25] MEDS: SODIUM CHLORIDE 0.9% 1,000 ML IV SCH ×3 (03:54→17:58)
[2020-10-25 04:59] LABS: ABG Base Excess -4.1 mmol/L; ABG HCO3 19 mmol/L (21-25); ABG Oxygen Saturation 99.7 % (94-97); ABG PCO2 24 mmHg (35-45); ABG PH 7.51 (7.35-7.45); ABG PO2 182 mmHg (83-108); ABG TCO2 20 mmol/L (19-24); Allen Test Performed? Yes
[2020-10-25 05:38] LABS: Glucose,Whole Blood 157 mg/dL (75-99)
[2020-10-25 06:20] LABS: INR 2.1 (<1.2); Prothrombin Time 20.4 sec (9.0-12.0)
[2020-10-25 06:25] LABS: HCT 37.8 % (34.0-46.0); HGB 12.5 gm/dL (11.4-16.0); Hypochromasia Slight; MCH 31.9 pg (25.0-35.0); MCHC 33.1 g/dL (31.0-37.0); MCV 96.4 fL (80.0-100.0); Mean Platelet Volume 10.4; Platelet Count 102 k/uL (150-450); RBC 3.92 m/uL (3.80-5.40); RDW 15.4 % (11.5-15.5)
[2020-10-25 06:30] LABS: Calcium 7.7 mg/dL (8.4-10.2); Potassium 4.5 mmol/L (3.5-5.1)
[2020-10-25 06:31] LABS: Partial Thromboplastin Time 101.5 sec (22.0-30.0)
--- NOTE | 2020-10-25 06:34 | XR ---
EXAMINATION TYPE: XR chest 1V portable DATE OF EXAM: 10/25/2020 CLINICAL HISTORY: Difficulty breathing progress study. TECHNIQUE: Single AP portable semiupright view of the chest is obtained. COMPARISON: Chest x-ray from one day earlier FINDINGS: Stable endotracheal and orogastric tubes. Stable left subclavian central venous catheter. O verlying sternal wires and mediastinal clips redemonstrated. Persistent cardiomegaly with slightly larger moderate-sized left pleural effusion. Associated left ba silar compressive atelectasis. Left apical pleural thickening and/or fluid redemonstrated. Right lung remains predominantly clear. Osseous structures are intact. Persistent bilateral hilar prominence barrera ggesting underlying pulmonary artery hypertension. IMPRESSION: Cardiomegaly with moderate to large left-sided pleural fluid collection redemonstrated sl ightly increased in size from most recent x-ray.
[2020-10-25 07:11] LABS: Eosinophils # (M) 0.14 k/uL (0-0.7); Lymphocytes # (M) 1.25 k/uL (1.0-4.8); Metamyelocytes # (M) 0.28 k/uL (0); Metamyelocytes % 2 %; Monocytes # (M) 0.83 k/uL (0-1.0); Myelocytes # (M) 0.14 k/uL (0); Myelocytes % 1 %; Neutrophils # (M) 11.54 k/uL (1.3-7.7); Neutrophils % (M) 83 %; Nucleated Red Blood Cells 1 /100 WBC (0-0); Total Cells Counted 200; WBC 13.9 k/uL (3.8-10.6)
[2020-10-25 07:19] LABS: Crenated RBC Present
[2020-10-25] MEDS ORDERED: SODIUM BICARB 8.4% 50 ML SYR (1 MEQ/ML) IV STA (08:17)
--- NOTE | 2020-10-25 08:30 | P.PN ---
Subjective Progress Note Date: 10/25/20 75-year-old female patient known history of non-small cell lung cancer locally advanced stage III be treated with a combination of chemoradiation therapy with favorable response. The patient was considered for surgical resection and was able to be nonsurgical due to borderline lung function and location of the tumor. The patient had an FEV1 of 60% of predicted. The patient was started with the immunotherapy for a while. She also has history of CHF with an ejection fraction of 3035% with global hypokinesis, CAD with previous bypass surgery in 2005 and previous non-STEMI and diabetes mellitus. The patient came into the emergency department yesterday because of altered mental status and body aches and pains at home. The patient was initially tachycardic with a heart rate of 117. The blood work showed a white cell count of 11.7, sodium was 131 with a potassium level of 5.3 and a serum bicarb of 14 with anion gap of 17. BUN was 55 with a creatinine of 2.3. Glucose was 47. Lactic acid level was 3.8 and a magnesium of 1.8 and troponin of 0.9 initially and it maxed out at 1.2 suggestive an acute non-STEMI.. UA was negative. COVID-19 testing was negative. The lactic acid level was as high as 7.5. Chest x-ray was consistent with a left suprahilar mass and a small left-sided pleural effusion. The patient was running a temperature of 99.5. She was complaining of shortness of breath. Her chest x-ray also showed a moderate-sized left-sided pleural effusion along with some volume loss in the left suprahilar mass. The patient has not received any treatment regarding her malignancy for the past few years. Most recent PET/CT from 08/21/2020 showed no areas of new metabolic activity to suggest recurrent tumor. There was small to moderate-sized left-sided pleural effusion that had shown some increased interval size compared to earlier PET/CT. This morning, the patient is calm and comfortable. No signs of any major respiratory distress. She remained in 100% nonrebreather facemask and her pulse ox is in the order of 95-99%. She didn't use the BiPAP overnight depression of 12/6 with an FiO2 of 50%. She was given a total of 4 L of IV fluids overnight. Urine output in order of 10 mL an hour. CAT scan of the abdomen and pelvis was completed and showed lateral pleural effusions along with cardiomegaly. No acute intra-abdominal pathology. Her morning INR is at 4.9. She is on insulin drip running at 1.12 units hour. After being given 4 L of IV fluid, the patient continued to be running some low blood pressure. She is also on norepinephrine infusion this morning at a dose of 0.16 mcg/kg per minute. Most recent blood pressure is 120/51. She has an arterial radial line on the right. No tachycardia. She is currently in normal sinus rhythm. 10/20/2020, the patient is being seen in follow-up in the intensive care unit. Events from yesterday were noted. After my morning evaluation, I reevaluated this patient and ICU at around 3:00 in the afternoon. The patient was becoming progressively more septic. She was becoming progressively more acidotic, tachypneic, tachycardic, hypotensive, urine output was low and the patient was very much cold and clammy. Her lactic acid level was also on the rise. Based on that, I inserted a triple lumen catheter and was started fluid resuscitation. We also intubated the patient with on a mechanical ventilator. The patient's subsequent turn down worker to have positive blood cultures with MSSA. IDs aware and the patient was started on IV cefazolin. 2 cultures of the blood are positive. This morning, the patient is sedated with propofol and probably was running at 30 mcg/kg per minute and the patient is calm and comfortable. She is intubated on a mechanical ventilator. She is an assist-control mode at the rate of 32 with a tidal volume of 500 and FiO2 of 35% with a PEEP of 5. Chest x-ray showing some atelectatic changes/effusion the left lung base. Right lung essentially clear. ET tube is in a good location and the patient has a triple lumen catheter in the left subclavian. No significant orotracheal secretions. She is quite success with the mechanical ventilator. She is able to generate a minute ventilation of 16.3 L with a peak airway pressure of around 26. Hemodynamically, the patient was given a total of 6 L of IV fluid bolus. She was also on a bicarb infusion initially at a dose of 100 mL an hour and currently she is at 50 mL an hour. Urine output has improved and the patient is producing urine output in the order of 75 mL an hour. Also, she remains on pressors. Norepinephrine infusion is running at 0.05 mcg/kg per minute. Insulin drip is also at 1.5 units an hour. On her labs, acid peaked at 10 and the most recent lactic acid level is at 3.4. The serum bicarb from this morning is at 16. Her BUN is at 64 with a creatinine of 2.4. Creatinine peaked at 3.46 and this is from yesterday noontime. She does have a component of shock liver and the LFTs are also abnormal with an AST of 1367 and ALP of 284. Bilirubin is at 1.5. The white cell count today is at 9.6 with a hemoglobin of 12.3. Platelet count has dropped to 102 pro-calcitonin level is up to 16.1. Serum cortisol was at 95 and no hydrocortisone was given. Troponins were also positive and a peaked at 1.2. Cardiac cardiac rhythm is atrial fibrillation with a controlled rate. 10/21/2020, I'm seeing the patient for a follow-up. She has done good progress and the patient septic shock was treated with antibiotics with IV cefazolin. Repeat blood cultures been negative. Patient was found to have MSSA in the blood. In general, she is doing better. Her lactic acid levels have improved. Hemodynamics improved and she is on minimal amount of pressors at this point in time and urine output is also improved. The patient this morning is sedated with propofol which is running at 15 mcg/kg per minute. She is on a mechanical ventilator with an assist-control mode at the rate of 20 with a tidal volume of 500 and FiO2 of 35% with a PEEP of 5. Blood gases from today is showing a pH of 7.52 with a pCO2 of 31 and pO2 of 130. Chest x-ray is unchanged and the patient has a left perihilar opacity consistent with non-small cell lung cancer in addition to chronic left-sided pleural effusion and some elevation of the left hemidiaphragm. Her DKA has completely recovered and the patient is currently off insulin drip and she is on Levemir insulin for blood sugar control. The patient is on IV cefazolin for her underlying MSSA septic shock. Shock liver is improving. Kidney injury is improving. Creatinine is down to 1.8. Pressors requirements have improved. No other significant issues otherwise. We are the process of getting this patient a sedation holiday and assess her underlying mental status and readiness to wean.\ 10/22/2020, I'm seeing this patient for a follow-up in the intensive care unit. The patient is a case of septic shock with multisystem organ failure and respi ratory failure. The patient has improved considerably. Cultures of the blood was positive for MSSA and patient is currently on IV cefazolin. Repeat cultures of been negative. Hemodynamically improved and she is currently off pressors. Acute kidney injury is also improving. In terms of sedation, the patient was given a sedation holiday and she was very slow to recover. It took her till late in the evening to demonstrate some neurologic recovery and based on that no weaning was done. The patient was placed back on sedation and earlier this morning she was taken off sedation and this morning she is following some simple commands and answering questions appropriately. She is extremely weak. She is on a mechanical ventilator patient is an assist-control mode with a rate of 12 with a tidal volume of 450 and FiO2 of 35% with a PEEP of 5. Blood gases showed a pH of 7.5 with a pCO2 of 36 and pO2 122. She remains in atrial fibrillation. She is on IV heparin. INR is down to 1.4 and the PT he is at 41. Hemoglobin is at 12.5. White cell count is at 7.1. Chest x-ray is not showing any interval change. The patient was given a dose of Lasix by cardiology yesterday. Creatinine is improving and is currently down to 1.26. On today's evaluation of 10/20/2020, the patient is awake and communicating. As stated earlier the patient was extubated. The patient was a case of sepsis secondary to MSSA and the patient is currently on cefazolin IV. Doing well. Hemodynamically stable. Renal function is improving. She remains in atrial fibrillation. IV heparin was discontinued as the patient developed some thrombocytopenia. We will monitor the platelet counts. We'll start the patient on antibiotic ventilation with warfarin once she is able to swallow. She did have 2 bedside swallow evaluation that she failed an official swallow evaluation was done by speech pathology. Otherwise, the patient is doing well. She is over the week. She is following commands. No signs of respiratory distress. Breathing is nonlabored. The creatinine is at 0.7. Rest of the electrodes are all within normal limits. The white cell count is 7.5 with a hemoglobin of 11.7. Chest x-ray showing some limited apical opacity in left basilar airspace disease On the morning of 10/24/2020, the patient he compensated. At around 6:00 this morning, the patient acutely became diaphoretic and tachypneic hypoxic and tachycardic. Immediately, the patient was started back on BiPAP which is cu rrently running at a pressure of 14/6 with an FiO2 of 50%. This improved her oxygenation and her pulse ox was low at 76% and currently she is up to 100%. She the is in atrial fibrillation and she is at the rapid ventricular response with a heart rate in the range of 100 to 115, irregular. The patient is not producing any urine output. She was given a dose of Lasix thinking that she may be going into pulmonary edema. She was given a total of 80 mg of IV Lasix without any significant response. At this point in time, she is on norepinephrine infusion which is running at 0.15 mcg/kg per minute for hemodynamic support. Most recent BP systolic is 98 mmHg. On her blood work, the patient has shown a white cell count of 8.2 with hemoglobin of 11.3. Platelet count is slightly improved which is up to 64 and noted the patient is taken off the IV heparin due to underlying thrombocytopenia. Her BUN at 53 with a creatinine of 1.2 and a serum bicarb is down to 23. Note that the patient was recovering from his septic shock. She had gotten much better with improvement in her overall hemodynamics and the renal function and metabolic acidosis. This was obviously a setback. She was on IV Regarding MSSA Bacteremia. She Is Known to Have Advanced Cardiomyopathy with Ejection Fraction of 20-25%. No Abdominal Pain. No Diarrhea. No Chest Pain. No Focal Neurological Deficits. . The blo od. This was done earlier this morning showed a pH of 7.33 with a pCO2 of 30 and pO2 of 153 and this was done in the BiPAP. As such, the patient is acidotic and this is probably metabolic acidosis. She is able to ventilate adequately on the BiPAP pushing down the pCO2 down to 30. There is obvious a component of metabolic acidosis compared this blood gases the earlier ones. She has a subclavian triple-lumen catheter in place. Exit site is dry clean and intact. Note the patient was quite weak since her extubation. She hasn't passed the swallow evaluation. An official swallow evaluation was done yesterday which she failed and as such she has been able to eat anything oral postextubation. 10/25/2020, the patient is intubated again.I had to intubate the patient again because of hemodynamic instability, hypotension, metabolic acidosis, and altered mentation. As stated earlier, recurrent bouts of sepsis was suspected as the patient was becoming hypotensive, tachycardic and she has also developed worsening and leukocytosis. For that reason, the patient was given IV fluids and she was aggressively resuscitated IV fluids received a total of 60-70 fluids yesterday and the net fluid balance is +9.5 L over the past 24 hours. Also, the patient was broadened in terms of her antibiotic coverage and she was placed on a combination of cefepime and vancomycin. Repeat cultures are still pending for now. Pro-calcitonin is still downtrending and is down to 3.19. Note that the lactic acid came as high as 7.9 and currently down to 2.5. This morning, the patient is intubated on a mechanical ventilator. the patient is well sedated with propofol which is running at 50 mics per kilogram per minute. The patient At this point in time she is an assist-control mode at the rate of 26 with a tidal volume of 500 and FiO2 of 50% with a PEEP of 5. Blood gases from today showed a pH of 7.51 with a pCO2 of 24 and pO2 182. the patient is quite hypotensive still. Pressor requirements has fluctuated throughout the day yesterday. Note that she has advanced cardiomyopathy with ejection fraction of 20-25%. Currently, norepinephrine has been weaned down to 0.2 mcg/kg per minute.Chest x-ray showing some slight increase in the left-sided pleural effusion. Is also left suprahilar opacity consistent with previous history of non-small cell lung cancer. White cell count peaked at 20.9 and it dropped down to 13.9. She remains in atrial fibrillation. Heart is less tachycardic. Noted the patient also developed an acute kidney injury. Creatinine was as high as 1.5 along with lactic acidosis. The patient was given bicarb infusion and the creatinine today is at 1.46. Lactic acid level is improving. Urine output is fluctuating,, currently she is producing somewhere between 5-30 mL an hour of urine output. She remains on IV heparin. Platelet counts have been stable, and the patient is also On IV heparin.I'm seeing this patient along with various consultants from cardiology, nephrology and infectious disease. Objective - Vital Signs Vital signs: Vital Signs Temp 97.0 F L 10/25/20 04:00 Pulse 85 10/25/20 07:00 Resp 26 H 10/25/20 07:00 BP 93/82 10/25/20 07:00 Pulse Ox 99 10/25/20 07:00 Intake & Output 10/24/20 10/25/20 10/25/20 18:59 06:59 18:59 Intake Total 3509.823 6570.115 103 Output Total 248 272 20 Balance 3261.823 6298.115 83 Weight 113 kg Intake: IV 2927 5336 103 0.9 pressure bag 36 36 3 Calcium Gluconate 1 gm In 100 Sodium Chloride 0.9% 100 ml @ 400 mls/hr IVPB ONCE ONE Rx#:[id number] Cefepime 2 gm In Sodium 100 Chloride 0.9% 100 ml @ 25 mls/hr IVPB Q12HR [facility] Rx #:[id number] Sodium Chloride 0.9% 1, 1140 5100 100 000 ml @ 100 mls/hr IV . Q10H [facility] Rx#:[id number] Sodium Chloride 0.9% 500 1250 ml 250 ml @ 999 mls/hr IV .Q16M ONE Rx#:[id number] Vancomycin 1,750 mg In 501 Sodium Chloride 0.9% 500 ml 500 ml @ 167 mls/hr IVPB Q24H [facility] Rx#: [id number] Intake, IV Titration 076.480 6902.115 0 Amount Heparin Sod,Pork in 0.45% 194.578 0 NaCl 25,000 unit In 0.45 % NaCl 1 250ml.bag @ 9.22 UNITS/KG/HR 10.004 mls/ hr IV .Q24H [facility] Rx#: [id number] Norepinephrine 4 mg In 582.823 984.238 Sodium Chloride 0.9% 250 ml @ 0.05 MCG/KG/MIN 20. 669 mls/hr IV .[id number] [facility] Rx#:[id number] propofoL 1,000 mg In 55.299 Empty Bag 1 bag @ Titrate IV .Q0M [facility] Rx#: [id number] Output: Urine 248 272 20 Other: Voiding Method Indwelling Catheter Indwelling Catheter # Bowel Movements 1 ABP, PAP, CO, CI - Last Documented Arterial Blood Pressure 128/60 - Exam Gen. appearance, comfortable, sedated on propofol. Calm and comfortable. The patient is quite symptomatic and is a mechanical ventilator. Head exam was generally normal. There was no scleral icterus or corneal arcus. Mucous membranes were moist. Neck was supple and without jugular venous distension, thyromegaly, or carotid bruits. Carotids were easily palpable bilaterally. There was no adenopathy. Lungs were clear to auscultation and percussion, and with normal diaphragmatic excursion. No wheezes or rales were noted. Cardiac exam revealed the PMI to be normally situated and sized. The rhythm was regular and no extrasystoles were noted during several minutes of auscultation. The first and second heart sounds were irregular consistent with atrial fibrillation.. There were no murmurs, rubs, clicks, or gallops. Abdominal exam revealed normal bowel sounds. The abdomen was soft, non-tender, and without masses, organomegaly, or appreciable enlargement of the abdominal aorta. Examination of the extremities revealeddiminished pulses in all 4 extremities.. There was no cyanosis, clubbing or edema. Examination of the skin revealed no evidence of significant rashes, suspicious a ppearing nevi or other concerning lesions. Neurologically, the patient is sedated, calm and comfortable,9 acute distress. - Labs CBC & Chem 7: 10/25/20 05:41 10/25/20 05:41 Labs: Abnormal Lab Results - Last 24 Hours (Table) 10/24/20 10/24/20 10/24/20 Range/Units 09:11 09:11 09:11 WBC (3.8-10.6) k/uL RBC (3.80-5.40) m/uL Hgb (11.4-16.0) gm/dL MCV (80.0-100.0) fL Plt Count (150-450) k/uL Neutrophils # (Manual) (1.3-7.7) k/uL Metamyelocytes # (Man) (0) k/uL Myelocytes # (Manual) (0) k/uL Nucleated RBCs (0-0) /100 WBC PT (9.0-12.0) sec INR (<1.2) APTT (22.0-30.0) sec ABG pH (7.35-7.45) ABG pCO2 (35-45) mmHg ABG pO2 (83-108) mmHg ABG HCO3 (21-25) mmol/L ABG Total CO2 (19-24) mmol/L ABG O2 Saturation (94-97) % Potassium (3.5-5.1) mmol/L Chloride (98-107) mmol/L Carbon Dioxide (22-30) mmol/L BUN (7-17) mg/dL Creatinine (0.52-1.04) mg/dL Glucose (74-99) mg/dL POC Glucose (mg/dL) (75-99) mg/dL Plasma Lactic Acid Walt 7.2 H* (0.7-2.0) mmol/L Calcium (8.4-10.2) mg/dL Troponin I 1.570 H* (0.000-0.034) ng/mL Procalcitonin 3.19 H (0.02-0.09) ng/mL 10/24/20 10/24/20 10/24/20 Range/Units 10:28 11:39 12:25 WBC (3.8-10.6) k/uL RBC (3.80-5.40) m/uL Hgb (11.4-16.0) gm/dL MCV (80.0-100.0) fL Plt Count (150-450) k/uL Neutrophils # (Manual) (1.3-7.7) k/uL Metamyelocytes # (Man) (0) k/uL Myelocytes # (Manual) (0) k/uL Nucleated RBCs (0-0) /100 WBC PT 15.7 H (9.0-12.0) sec INR 1.6 H (<1.2) APTT (22.0-30.0) sec ABG pH (7.35-7.45) ABG pCO2 (35-45) mmHg ABG pO2 (83-108) mmHg ABG HCO3 (21-25) mmol/L ABG Total CO2 (19-24) mmol/L ABG O2 Saturation (94-97) % Potassium (3.5-5.1) mmol/L Chloride 111 H (98-107) mmol/L Carbon Dioxide 20 L (22-30) mmol/L BUN 56 H (7-17) mg/dL Creatinine 1.35 H (0.52-1.04) mg/dL Glucose 152 H (74-99) mg/dL POC Glucose (mg/dL) 137 H (75-99) mg/dL Plasma Lactic Acid Walt (0.7-2.0) mmol/L Calcium 7.9 L (8.4-10.2) mg/dL Troponin I (0.000-0.034) ng/mL Procalcitonin (0.02-0.09) ng/mL 10/24/20 10/24/20 10/24/20 Range/Units 12:25 16:50 16:50 WBC (3.8-10.6) k/uL RBC (3.80-5.40) m/uL Hgb (11.4-16.0) gm/dL MCV (80.0-100.0) fL Plt Count (150-450) k/uL Neutrophils # (Manual) (1.3-7.7) k/uL Metamyelocytes # (Man) (0) k/uL Myelocytes # (Manual) (0) k/uL Nucleated RBCs (0-0) /100 WBC PT (9.0-12.0) sec INR (<1.2) APTT 52.7 H (22.0-30.0) sec ABG pH (7.35-7.45) ABG pCO2 (35-45) mmHg ABG pO2 (83-108) mmHg ABG HCO3 (21-25) mmol/L ABG Total CO2 (19-24) mmol/L ABG O2 Saturation (94-97) % Potassium (3.5-5.1) mmol/L Chloride (98-107) mmol/L Carbon Dioxide (22-30) mmol/L BUN (7-17) mg/dL Creatinine (0.52-1.04) mg/dL Glucose (74-99) mg/dL POC Glucose (mg/dL) (75-99) mg/dL Plasma Lactic Acid Walt 2.4 H* 2.4 H* (0.7-2.0) mmol/L Calcium (8.4-10.2) mg/dL Troponin I (0.000-0.034) ng/mL Procalcitonin (0.02-0.09) ng/mL 10/24/20 10/24/20 10/24/20 Range/Units 17:32 20:07 20:07 WBC 20.9 H (3.8-10.6) k/uL RBC 3.53 L (3.80-5.40) m/uL Hgb 11.1 L (11.4-16.0) gm/dL MCV 100.3 H (80.0-100.0) fL Plt Count 127 L D (150-450) k/uL Neutrophils # (Manual) (1.3-7.7) k/uL Metamyelocytes # (Man) (0) k/uL Myelocytes # (Manual) (0) k/uL Nucleated RBCs (0-0) /100 WBC PT (9.0-12.0) sec INR (<1.2) APTT (22.0-30.0) sec ABG pH (7.35-7.45) ABG pCO2 (35-45) mmHg ABG pO2 (83-108) mmHg ABG HCO3 (21-25) mmol/L ABG Total CO2 (19-24) mmol/L ABG O2 Saturation (94-97) % Potassium (3.5-5.1) mmol/L Chloride (98-107) mmol/L Carbon Dioxide (22-30) mmol/L BUN (7-17) mg/dL Creatinine (0.52-1.04) mg/dL Glucose (74-99) mg/dL POC Glucose (mg/dL) 165 H (75-99) mg/dL Plasma Lactic Acid Walt 7.9 H* (0.7-2.0) mmol/L Calcium (8.4-10.2) mg/dL Troponin I (0.000-0.034) ng/mL Procalcitonin (0.02-0.09) ng/mL 10/24/20 10/24/20 10/24/20 Range/Units 20:07 23:06 23:24 WBC (3.8-10.6) k/uL RBC (3.80-5.40) m/uL Hgb (11.4-16.0) gm/dL MCV (80.0-100.0) fL Plt Count (150-450) k/uL Neutrophils # (Manual) (1.3-7.7) k/uL Metamyelocytes # (Man) (0) k/uL Myelocytes # (Manual) (0) k/uL Nucleated RBCs (0-0) /100 WBC PT (9.0-12.0) sec INR (<1.2) APTT (22.0-30.0) sec ABG pH (7.35-7.45) ABG pCO2 27 L (35-45) mmHg ABG pO2 >400 H (83-108) mmHg ABG HCO3 18 L (21-25) mmol/L ABG Total CO2 18 L (19-24) mmol/L ABG O2 Saturation 99.5 H (94-97) % Potassium 5.9 H (3.5-5.1) mmol/L Chloride 116 H (98-107) mmol/L Carbon Dioxide 12 L (22-30) mmol/L BUN 55 H (7-17) mg/dL Creatinine 1.56 H (0.52-1.04) mg/dL Glucose 135 H (74-99) mg/dL POC Glucose (mg/dL) 160 H (75-99) mg/dL Plasma Lactic Acid Walt (0.7-2.0) mmol/L Calcium 7.7 L (8.4-10.2) mg/dL Troponin I (0.000-0.034) ng/mL Procalcitonin (0.02-0.09) ng/mL 10/25/20 10/25/20 10/25/20 Range/Units 01:15 04:58 05:36 WBC (3.8-10.6) k/uL RBC (3.80-5.40) m/uL Hgb (11.4-16.0) gm/dL MCV (80.0-100.0) fL Plt Count (150-450) k/uL Neutrophils # (Manual) (1.3-7.7) k/uL Metamyelocytes # (Man) (0) k/uL Myelocytes # (Manual) (0) k/uL Nucleated RBCs (0-0) /100 WBC PT (9.0-12.0) sec INR (<1.2) APTT (22.0-30.0) sec ABG pH 7.51 H (7.35-7.45) ABG pCO2 24 L (35-45) mmHg ABG pO2 182 H (83-108) mmHg ABG HCO3 19 L (21-25) mmol/L ABG Total CO2 (19-24) mmol/L ABG O2 Saturation 99.7 H (94-97) % Potassium (3.5-5.1) mmol/L Chloride (98-107) mmol/L Carbon Dioxide (22-30) mmol/L BUN (7-17) mg/dL Creatinine (0.52-1.04) mg/dL Glucose (74-99) mg/dL POC Glucose (mg/dL) 157 H (75-99) mg/dL Plasma Lactic Acid Walt 4.7 H* (0.7-2.0) mmol/L Calcium (8.4-10.2) mg/dL Troponin I (0.000-0.034) ng/mL Procalcitonin (0.02-0.09) ng/mL 10/25/20 10/25/20 10/25/20 Range/Units 05:41 05:41 05:41 WBC 13.9 H (3.8-10.6) k/uL RBC (3.80-5.40) m/uL Hgb (11.4-16.0) gm/dL MCV (80.0-100.0) fL Plt Count 102 L (150-450) k/uL Neutrophils # (Manual) 11.54 H (1.3-7.7) k/uL Metamyelocytes # (Man) 0.28 H (0) k/uL Myelocytes # (Manual) 0.14 H (0) k/uL Nucleated RBCs 1 H (0-0) /100 WBC PT 20.4 H (9.0-12.0) sec INR 2.1 H (<1.2) APTT 101.5 H* (22.0-30.0) sec ABG pH (7.35-7.45) ABG pCO2 (35-45) mmHg ABG pO2 (83-108) mmHg ABG HCO3 (21-25) mmol/L ABG Total CO2 (19-24) mmol/L ABG O2 Saturation (94-97) % Potassium (3.5-5.1) mmol/L Chloride 116 H (98-107) mmol/L Carbon Dioxide 16 L (22-30) mmol/L BUN 55 H (7-17) mg/dL Creatinine 1.43 H (0.52-1.04) mg/dL Glucose 169 H (74-99) mg/dL POC Glucose (mg/dL) (75-99) mg/dL Plasma Lactic Acid Walt (0.7-2.0) mmol/L Calcium 7.7 L (8.4-10.2) mg/dL Troponin I (0.000-0.034) ng/mL Procalcitonin (0.02-0.09) ng/mL 10/25/20 Range/Units 05:41 WBC (3.8-10.6) k/uL RBC (3.80-5.40) m/uL Hgb (11.4-16.0) gm/dL MCV (80.0-100.0) fL Plt Count (150-450) k/uL Neutrophils # (Manual) (1.3-7.7) k/uL Metamyelocytes # (Man) (0) k/uL Myelocytes # (Manual) (0) k/uL Nucleated RBCs (0-0) /100 WBC PT (9.0-12.0) sec INR (<1.2) APTT (22.0-30.0) sec ABG pH (7.35-7.45) ABG pCO2 (35-45) mmHg ABG pO2 (83-108) mmHg ABG HCO3 (21-25) mmol/L ABG Total CO2 (19-24) mmol/L ABG O2 Saturation (94-97) % Potassium (3.5-5.1) mmol/L Chloride (98-107) mmol/L Carbon Dioxide (22-30) mmol/L BUN (7-17) mg/dL Creatinine (0.52-1.04) mg/dL Glucose (74-99) mg/dL POC Glucose (mg/dL) (75-99) mg/dL Plasma Lactic Acid Walt 2.5 H* (0.7-2.0) mmol/L Calcium (8.4-10.2) mg/dL Troponin I (0.000-0.034) ng/mL Procalcitonin (0.02-0.09) ng/mL Microbiology - Last 24 Hours (Table) 10/20/20 04:00 Blood Culture - Preliminary Blood No Growth after 120 hours 10/24/20 09:15 Urine Culture - Preliminary Urine,Catheterized 10/20/20 10:00 Blood Culture - Preliminary Blood No Growth after 96 hours 10/20/20 10:00 Blood Culture - Preliminary Blood No Growth after 96 hours 10/19/20 10:00 Blood Culture - Preliminary Blood No Growth after 120 hours Assessment and Plan Plan: 1 septic shock secondary to staph aureus, MSSA . After some initial improvement in hemodynamics, the patient developed decompensation and hemodynami c instability with worsening shortness of breath, tachypnea, hypotension, acute kidney injury, lactic acidosis and shock. As such, recurrent sepsis was suspected. The patient was taken off the cefazolin and antibiotic was brought in yesterday to include a combination of cefepime and vancomycin. The patient subsequently had blood cultures sent and the results are still pending. Pro- calcitonin level is down trending. Her fluid balance over the past 24 hours is +9 L. Lactic acidosis improving. She started to produce some urine output. Renal function is also stable, slightly improved compared to yesterday. She is still hemodynamically unstable requiring pressors and currently norepinephrine infusion is running at 0.2 mcg/kg per minute. 2 diabetes mellitus with mild component of DKA on admission, recovered 3 severe metabolic acidosis and lactic acidosis secondary to above ,essential lactic acidosis secondary to septic shock 4 hypotension, essentially secondary to septic shock with possibly a cardiogenic component as the patient has an ejection fraction of 20-25% on echocardiogram., Within the patient is currently back on pressors and currently she is on norepinephrine 5 coronary artery disease with previous bypass surgery 6 abnormal troponin, consider non-STEMI, patient is free of any chest pain, could be sepsis induced troponin leaktroponin leak that 1.28, consider underlying mild component of non-STEMI. 7 paroxysmal atrial fibrillation , currently the patient atrial fibrillation with some degree of rapid ventricular response 8 non-small cell lung cancer, stage IIIB post chemoradiation therapy. Most recent PET scan from August 2020 was essentially within stable state and the patient had no significant metabolic activity noted to suggest tumor recurrence 9 bilateral pleural effusion more so on the left, slight increased in the size of the pleural effusion based on the most recent PET scan 10 acute shock liver, improved 11 Coumadin toxicity, without any signs of bleeding, recovered 12 acute kidney injury, improving , creatinine is at stable and the patient's urine output is improved with fluid resuscitation 13 hypothermia, improving 14 CHF with an ejection fraction of 20-25% 15 THROMBOCYTOPENIA, platelet count is stable, improving Plan been adequately resuscitated IV fluids. We'll cut down the IV fluids to 50 mL an hour and will continue the pressors for now. Continue vent support and drop the tidal volume to 400 as the patient has developed respiratory alkalosis Continue current antibiotic coverage Wean off pressors if possible to maintain a mean arterial pressure above 65 Awaiting follow-up cultures Stopped IV cefazolin and broaden antibiotic coverage to include a combination of cefepime and vancomycin Keep the patient nothing by mouth for now Restarted IV heparin monitor the platelet count and watch for any signs of b leeding Warfarin is still on holdI will continue the IV heparin for now and monitor the platelet count Condition is obviously critical and there is a high likelihood that the patient may further decompensated and end up on a respirator again. The family will be updated. Keep In ICU , critically care evaluation, more than 30 minutes. Arterial line may need to be established at a later stage. Time with Patient: Greater than 30
--- NOTE | 2020-10-25 08:39 | P.PN ---
Subjective Patient is seen in follow-up for acute kidney injury. Renal function a little worse today. She had to be reintubated yesterday due to worsening respiratory distress. She is maintained on IV fluids. Received a total of 6 L in IV fluid bolus yesterday. Urine output 25-30 mL an hour. Also on Levophed. Vital signs: Stable. On vasopressor support. HEENT: Intubated. LUNGS: Breath sounds decreased. HEART: Tachycardic. ABDOMEN: Soft, obese. EXTREMITITES: 1+ edema. Objective - Vital Signs Vital signs: Vital Signs Temp 97.0 F L 10/25/20 04:00 Pulse 85 10/25/20 07:00 Resp 26 H 10/25/20 07:00 BP 93/82 10/25/20 07:00 Pulse Ox 99 10/25/20 07:00 Intake & Output 10/24/20 10/25/20 10/25/20 18:59 06:59 18:59 Intake Total 3509.823 6570.115 103 Output Total 248 272 20 Balance 3261.823 6298.115 83 Weight 113 kg Intake: IV 2927 5336 103 0.9 pressure bag 36 36 3 Calcium Gluconate 1 gm In 100 Sodium Chloride 0.9% 100 ml @ 400 mls/hr IVPB ONCE ONE Rx#:[id number] Cefepime 2 gm In Sodium 100 Chloride 0.9% 100 ml @ 25 mls/hr IVPB Q12HR [facility] Rx #:[id number] Sodium Chloride 0.9% 1, 1140 5100 100 000 ml @ 100 mls/hr IV . Q10H [facility] Rx#:[id number] Sodium Chloride 0.9% 500 1250 ml 250 ml @ 999 mls/hr IV .Q16M ONE Rx#:[id number] Vancomycin 1,750 mg In 501 Sodium Chloride 0.9% 500 ml 500 ml @ 167 mls/hr IVPB Q24H [facility] Rx#: [id number] Intake, IV Titration 088.444 3328.115 0 Amount Heparin Sod,Pork in 0.45% 194.578 0 NaCl 25,000 unit In 0.45 % NaCl 1 250ml.bag @ 9.22 UNITS/KG/HR 10.004 mls/ hr IV .Q24H [facility] Rx#: [id number] Norepinephrine 4 mg In 582.823 984.238 Sodium Chloride 0.9% 250 ml @ 0.05 MCG/KG/MIN 20. 669 mls/hr IV .[id number] [facility] Rx#:[id number] propofoL 1,000 mg In 55.299 Empty Bag 1 bag @ Titrate IV .Q0M [facility] Rx#: [id number] Output: Urine 248 272 20 Other: Voiding Method Indwelling Catheter Indwelling Catheter # Bowel Movements 1 ABP, PAP, CO, CI - Last Documented Arterial Blood Pressure 128/60 - Labs CBC & Chem 7: 10/25/20 05:41 10/25/20 05:41 Labs: Abnormal Lab Results - Last 24 Hours (Table) 10/24/20 10/24/20 10/24/20 Range/Units 09:11 09:11 09:11 WBC (3.8-10.6) k/uL RBC (3.80-5.40) m/uL Hgb (11.4-16.0) gm/dL MCV (80.0-100.0) fL Plt Count (150-450) k/uL Neutrophils # (Manual) (1.3-7.7) k/uL Metamyelocytes # (Man) (0) k/uL Myelocytes # (Manual) (0) k/uL Nucleated RBCs (0-0) /100 WBC PT (9.0-12.0) sec INR (<1.2) APTT (22.0-30.0) sec ABG pH (7.35-7.45) ABG pCO2 (35-45) mmHg ABG pO2 (83-108) mmHg ABG HCO3 (21-25) mmol/L ABG Total CO2 (19-24) mmol/L ABG O2 Saturation (94-97) % Potassium (3.5-5.1) mmol/L Chloride (98-107) mmol/L Carbon Dioxide (22-30) mmol/L BUN (7-17) mg/dL Creatinine (0.52-1.04) mg/dL Glucose (74-99) mg/dL POC Glucose (mg/dL) (75-99) mg/dL Plasma Lactic Acid Walt 7.2 H* (0.7-2.0) mmol/L Calcium (8.4-10.2) mg/dL Troponin I 1.570 H* (0.000-0.034) ng/mL Procalcitonin 3.19 H (0.02-0.09) ng/mL 10/24/20 10/24/20 10/24/20 Range/Units 10:28 11:39 12:25 WBC (3.8-10.6) k/uL RBC (3.80-5.40) m/uL Hgb (11.4-16.0) gm/dL MCV (80.0-100.0) fL Plt Count (150-450) k/uL Neutrophils # (Manual) (1.3-7.7) k/uL Metamyelocytes # (Man) (0) k/uL Myelocytes # (Manual) (0) k/uL Nucleated RBCs (0-0) /100 WBC PT 15.7 H (9.0-12.0) sec INR 1.6 H (<1.2) APTT (22.0-30.0) sec ABG pH (7.35-7.45) ABG pCO2 (35-45) mmHg ABG pO2 (83-108) mmHg ABG HCO3 (21-25) mmol/L ABG Total CO2 (19-24) mmol/L ABG O2 Saturation (94-97) % Potassium (3.5-5.1) mmol/L Chloride 111 H (98-107) mmol/L Carbon Dioxide 20 L (22-30) mmol/L BUN 56 H (7-17) mg/dL Creatinine 1.35 H (0.52-1.04) mg/dL Glucose 152 H (74-99) mg/dL POC Glucose (mg/dL) 137 H (75-99) mg/dL Plasma Lactic Acid Walt (0.7-2.0) mmol/L Calcium 7.9 L (8.4-10.2) mg/dL Troponin I (0.000-0.034) ng/mL Procalcitonin (0.02-0.09) ng/mL 10/24/20 10/24/20 10/24/20 Range/Units 12:25 16:50 16:50 WBC (3.8-10.6) k/uL RBC (3.80-5.40) m/uL Hgb (11.4-16.0) gm/dL MCV (80.0-100.0) fL Plt Count (150-450) k/uL Neutrophils # (Manual) (1.3-7.7) k/uL Metamyelocytes # (Man) (0) k/uL Myelocytes # (Manual) (0) k/uL Nucleated RBCs (0-0) /100 WBC PT (9.0-12.0) sec INR (<1.2) APTT 52.7 H (22.0-30.0) sec ABG pH (7.35-7.45) ABG pCO2 (35-45) mmHg ABG pO2 (83-108) mmHg ABG HCO3 (21-25) mmol/L ABG Total CO2 (19-24) mmol/L ABG O2 Saturation (94-97) % Potassium (3.5-5.1) mmol/L Chloride (98-107) mmol/L Carbon Dioxide (22-30) mmol/L BUN (7-17) mg/dL Creatinine (0.52-1.04) mg/dL Glucose (74-99) mg/dL POC Glucose (mg/dL) (75-99) mg/dL Plasma Lactic Acid Walt 2.4 H* 2.4 H* (0.7-2.0) mmol/L Calcium (8.4-10.2) mg/dL Troponin I (0.000-0.034) ng/mL Procalcitonin (0.02-0.09) ng/mL 10/24/20 10/24/20 10/24/20 Range/Units 17:32 20:07 20:07 WBC 20.9 H (3.8-10.6) k/uL RBC 3.53 L (3.80-5.40) m/uL Hgb 11.1 L (11.4-16.0) gm/dL MCV 100.3 H (80.0-100.0) fL Plt Count 127 L D (150-450) k/uL Neutrophils # (Manual) (1.3-7.7) k/uL Metamyelocytes # (Man) (0) k/uL Myelocytes # (Manual) (0) k/uL Nucleated RBCs (0-0) /100 WBC PT (9.0-12.0) sec INR (<1.2) APTT (22.0-30.0) sec ABG pH (7.35-7.45) ABG pCO2 (35-45) mmHg ABG pO2 (83-108) mmHg ABG HCO3 (21-25) mmol/L ABG Total CO2 (19-24) mmol/L ABG O2 Saturation (94-97) % Potassium (3.5-5.1) mmol/L Chloride (98-107) mmol/L Carbon Dioxide (22-30) mmol/L BUN (7-17) mg/dL Creatinine (0.52-1.04) mg/dL Glucose (74-99) mg/dL POC Glucose (mg/dL) 165 H (75-99) mg/dL Plasma Lactic Acid Walt 7.9 H* (0.7-2.0) mmol/L Calcium (8.4-10.2) mg/dL Troponin I (0.000-0.034) ng/mL Procalcitonin (0.02-0.09) ng/mL 10/24/20 10/24/20 10/24/20 Range/Units 20:07 23:06 23:24 WBC (3.8-10.6) k/uL RBC (3.80-5.40) m/uL Hgb (11.4-16.0) gm/dL MCV (80.0-100.0) fL Plt Count (150-450) k/uL Neutrophils # (Manual) (1.3-7.7) k/uL Metamyelocytes # (Man) (0) k/uL Myelocytes # (Manual) (0) k/uL Nucleated RBCs (0-0) /100 WBC PT (9.0-12.0) sec INR (<1.2) APTT (22.0-30.0) sec ABG pH (7.35-7.45) ABG pCO2 27 L (35-45) mmHg ABG pO2 >400 H (83-108) mmHg ABG HCO3 18 L (21-25) mmol/L ABG Total CO2 18 L (19-24) mmol/L ABG O2 Saturation 99.5 H (94-97) % Potassium 5.9 H (3.5-5.1) mmol/L Chloride 116 H (98-107) mmol/L Carbon Dioxide 12 L (22-30) mmol/L BUN 55 H (7-17) mg/dL Creatinine 1.56 H (0.52-1.04) mg/dL Glucose 135 H (74-99) mg/dL POC Glucose (mg/dL) 160 H (75-99) mg/dL Plasma Lactic Acid Walt (0.7-2.0) mmol/L Calcium 7.7 L (8.4-10.2) mg/dL Troponin I (0.000-0.034) ng/mL Procalcitonin (0.02-0.09) ng/mL 10/25/20 10/25/20 10/25/20 Range/Units 01:15 04:58 05:36 WBC (3.8-10.6) k/uL RBC (3.80-5.40) m/uL Hgb (11.4-16.0) gm/dL MCV (80.0-100.0) fL Plt Count (150-450) k/uL Neutrophils # (Manual) (1.3-7.7) k/uL Metamyelocytes # (Man) (0) k/uL Myelocytes # (Manual) (0) k/uL Nucleated RBCs (0-0) /100 WBC PT (9.0-12.0) sec INR (<1.2) APTT (22.0-30.0) sec ABG pH 7.51 H (7.35-7.45) ABG pCO2 24 L (35-45) mmHg ABG pO2 182 H (83-108) mmHg ABG HCO3 19 L (21-25) mmol/L ABG Total CO2 (19-24) mmol/L ABG O2 Saturation 99.7 H (94-97) % Potassium (3.5-5.1) mmol/L Chloride (98-107) mmol/L Carbon Dioxide (22-30) mmol/L BUN (7-17) mg/dL Creatinine (0.52-1.04) mg/dL Glucose (74-99) mg/dL POC Glucose (mg/dL) 157 H (75-99) mg/dL Plasma Lactic Acid Walt 4.7 H* (0.7-2.0) mmol/L Calcium (8.4-10.2) mg/dL Troponin I (0.000-0.034) ng/mL Procalcitonin (0.02-0.09) ng/mL 10/25/20 10/25/20 10/25/20 Range/Units 05:41 05:41 05:41 WBC 13.9 H (3.8-10.6) k/uL RBC (3.80-5.40) m/uL Hgb (11.4-16.0) gm/dL MCV (80.0-100.0) fL Plt Count 102 L (150-450) k/uL Neutrophils # (Manual) 11.54 H (1.3-7.7) k/uL Metamyelocytes # (Man) 0.28 H (0) k/uL Myelocytes # (Manual) 0.14 H (0) k/uL Nucleated RBCs 1 H (0-0) /100 WBC PT 20.4 H (9.0-12.0) sec INR 2.1 H (<1.2) APTT 101.5 H* (22.0-30.0) sec ABG pH (7.35-7.45) ABG pCO2 (35-45) mmHg ABG pO2 (83-108) mmHg ABG HCO3 (21-25) mmol/L ABG Total CO2 (19-24) mmol/L ABG O2 Saturation (94-97) % Potassium (3.5-5.1) mmol/L Chloride 116 H (98-107) mmol/L Carbon Dioxide 16 L (22-30) mmol/L BUN 55 H (7-17) mg/dL Creatinine 1.43 H (0.52-1.04) mg/dL Glucose 169 H (74-99) mg/dL POC Glucose (mg/dL) (75-99) mg/dL Plasma Lactic Acid Walt (0.7-2.0) mmol/L Calcium 7.7 L (8.4-10.2) mg/dL Troponin I (0.000-0.034) ng/mL Procalcitonin (0.02-0.09) ng/mL 10/25/20 Range/Units 05:41 WBC (3.8-10.6) k/uL RBC (3.80-5.40) m/uL Hgb (11.4-16.0) gm/dL MCV (80.0-100.0) fL Plt Count (150-450) k/uL Neutrophils # (Manual) (1.3-7.7) k/uL Metamyelocytes # (Man) (0) k/uL Myelocytes # (Manual) (0) k/uL Nucleated RBCs (0-0) /100 WBC PT (9.0-12.0) sec INR (<1.2) APTT (22.0-30.0) sec ABG pH (7.35-7.45) ABG pCO2 (35-45) mmHg ABG pO2 (83-108) mmHg ABG HCO3 (21-25) mmol/L ABG Total CO2 (19-24) mmol/L ABG O2 Saturation (94-97) % Potassium (3.5-5.1) mmol/L Chloride (98-107) mmol/L Carbon Dioxide (22-30) mmol/L BUN (7-17) mg/dL Creatinine (0.52-1.04) mg/dL Glucose (74-99) mg/dL POC Glucose (mg/dL) (75-99) mg/dL Plasma Lactic Acid Walt 2.5 H* (0.7-2.0) mmol/L Calcium (8.4-10.2) mg/dL Troponin I (0.000-0.034) ng/mL Procalcitonin (0.02-0.09) ng/mL Microbiology - Last 24 Hours (Table) 10/20/20 04:00 Blood Culture - Preliminary Blood No Growth after 120 hours 10/24/20 09:15 Urine Culture - Preliminary Urine,Catheterized 10/20/20 10:00 Blood Culture - Preliminary Blood No Growth after 96 hours 10/20/20 10:00 Blood Culture - Preliminary Blood No Growth after 96 hours 10/19/20 10:00 Blood Culture - Preliminary Blood No Growth after 120 hours Assessment and Plan Plan: Assessment: 1. Acute kidney injury secondary to ATN secondary to hypotension and sepsis. Creatinine 1.43 today. 2. MSSA bacteremia maintained on antibiotics. 3. Metabolic acidosis secondary to acute kidney injury, lactic acidosis. Partially also compensatory for respiratory alkalosis. 4. Acute hypoxic respiratory failure. 5. History of non-small cell lung cancer. 6. Chronic systolic CHF with ejection fraction of 20-25%. Plan: Maintain normal saline. Need to be cautious with IV fluids due to underlying cardiac status. 2 A of sodium bicarb IV push now. Wean FiO2 and vasopressors. Continue to monitor renal function and urine output.
[2020-10-25] MEDS: NOREPINEPHRINE 8 MG in SODIUM CHLORIDE 0.9% 250 ML IV SCH ×3 (09:19→22:48)
[2020-10-25] MEDS: CEFEPIME 2 GM in SODIUM CHLORIDE 0.9% 100 ML IVPB SCH ×2 (09:29→21:21)
[2020-10-25] MEDS: PANTOPRAZOLE 40 MG/10 ML VIAL IVP SCH (09:29)
[2020-10-25] MEDS: LEVOTHYROXINE 88 MCG TAB PO SCH (09:29)
[2020-10-25] MEDS: CHLORHEXIDINE GLUCONATE 15 ML CUP MUCOUS MEM SCH ×2 (09:29→21:21)
[2020-10-25] MEDS: HEPARIN SOD,PORK IN 0.45% NACL 25,000 UNIT in 0.45% NACL 1 250ML.BAG IV SCH (09:31)
[2020-10-25 11:40] LABS: Glucose,Whole Blood 183 mg/dL (75-99)
[2020-10-25] MEDS: VANCOMYCIN 1,750 MG in SODIUM CHLORIDE 0.9% 500 ML 500 ML IVPB SCH (12:04)
--- NOTE | 2020-10-25 12:56 | P.PN ---
Subjective Progress Note Date: 10/25/20 Patient overall condition continued to deteriorate yesterday and she was eventually sedated and intubated. She required aggressive IV fluid hydration for worsening hypotension/septic shock. She is currently on norepinephrine to maintain mean arterial pressure greater than 65. Her daughter is at bedside. I updated her daughter about patient's clinical condition. Blood culture from yesterday returned positive after being confused since the Objective - Vital Signs Vital signs: Vital Signs Temp 97.8 F 10/25/20 08:00 Pulse 92 10/25/20 11:00 Resp 26 H 10/25/20 11:00 BP 92/64 10/25/20 11:00 Pulse Ox 99 10/25/20 11:00 Intake & Output 10/24/20 10/25/20 10/25/20 18:59 06:59 18:59 Intake Total 3509.823 6570.115 510.459 Output Total 248 272 160 Balance 3261.823 6298.115 350.459 Weight 113 kg Intake: IV 2927 5336 215 0.9 pressure bag 36 36 15 Calcium Gluconate 1 gm In 100 Sodium Chloride 0.9% 100 ml @ 400 mls/hr IVPB ONCE ONE Rx#:[id number] Cefepime 2 gm In Sodium 100 100 Chloride 0.9% 100 ml @ 25 mls/hr IVPB Q12HR [facility] Rx #:[id number] Sodium Chloride 0.9% 1, 1140 5100 100 000 ml @ 100 mls/hr IV . Q10H [facility] Rx#:[id number] Sodium Chloride 0.9% 500 1250 ml 250 ml @ 999 mls/hr IV .Q16M [facility] Rx#:[id number] Vancomycin 1,750 mg In 501 Sodium Chloride 0.9% 500 ml 500 ml @ 167 mls/hr IVPB Q24H [facility] Rx#: [id number] Intake, IV Titration 505.129 7905.115 295.459 Amount Heparin Sod,Pork in 0.45% 194.578 12.373 NaCl 25,000 unit In 0.45 % NaCl 1 250ml.bag @ 9.22 UNITS/KG/HR 10.004 mls/ hr IV .Q24H [facility] Rx#: [id number] Norepinephrine 4 mg In 582.823 984.238 210.939 Sodium Chloride 0.9% 250 ml @ 0.05 MCG/KG/MIN 20. 669 mls/hr IV .[id number] [facility] Rx#:[id number] propofoL 1,000 mg In 55.299 72.147 Empty Bag 1 bag @ Titrate IV .Q0M [facility] Rx#: [id number] Output: Urine 248 272 160 Other: Voiding Method Indwelling Catheter Indwelling Catheter Indwelling Catheter # Bowel Movements 1 ABP, PAP, CO, CI - Last Documented Arterial Blood Pressure 01/06 - Exam General: The patient is sedated and intubated Eye: there is normal conjunctiva bilaterally. Neck: The neck is supple, there is no JVD. Cardiovascular: Normal S1-S2, no S3-S4, no murmurs. Respiratory: Lungs clear to auscultation bilaterally Gastrointestinal: Abdomen is soft, nontender Musculoskeletal: There is no pedal edema. Skin: Skin is warm and dry - Labs CBC & Chem 7: 10/25/20 05:41 10/25/20 05:41 Labs: Abnormal Lab Results - Last 24 Hours (Table) 10/24/20 10/24/20 10/24/20 Range/Units 09:11 12:25 12:25 WBC (3.8-10.6) k/uL RBC (3.80-5.40) m/uL Hgb (11.4-16.0) gm/dL MCV (80.0-100.0) fL Plt Count (150-450) k/uL Neutrophils # (Manual) (1.3-7.7) k/uL Metamyelocytes # (Man) (0) k/uL Myelocytes # (Manual) (0) k/uL Nucleated RBCs (0-0) /100 WBC PT (9.0-12.0) sec INR (<1.2) APTT (22.0-30.0) sec ABG pH (7.35-7.45) ABG pCO2 (35-45) mmHg ABG pO2 (83-108) mmHg ABG HCO3 (21-25) mmol/L ABG Total CO2 (19-24) mmol/L ABG O2 Saturation (94-97) % Potassium (3.5-5.1) mmol/L Chloride 111 H (98-107) mmol/L Carbon Dioxide 20 L (22-30) mmol/L BUN 56 H (7-17) mg/dL Creatinine 1.35 H (0.52-1.04) mg/dL Glucose 152 H (74-99) mg/dL POC Glucose (mg/dL) (75-99) mg/dL Plasma Lactic Acid Walt 2.4 H* (0.7-2.0) mmol/L Calcium 7.9 L (8.4-10.2) mg/dL Procalcitonin 3.19 H (0.02-0.09) ng/mL 10/24/20 10/24/20 10/24/20 Range/Units 16:50 16:50 17:32 WBC (3.8-10.6) k/uL RBC (3.80-5.40) m/uL Hgb (11.4-16.0) gm/dL MCV (80.0-100.0) fL Plt Count (150-450) k/uL Neutrophils # (Manual) (1.3-7.7) k/uL Metamyelocytes # (Man) (0) k/uL Myelocytes # (Manual) (0) k/uL Nucleated RBCs (0-0) /100 WBC PT (9.0-12.0) sec INR (<1.2) APTT 52.7 H (22.0-30.0) sec ABG pH (7.35-7.45) ABG pCO2 (35-45) mmHg ABG pO2 (83-108) mmHg ABG HCO3 (21-25) mmol/L ABG Total CO2 (19-24) mmol/L ABG O2 Saturation (94-97) % Potassium (3.5-5.1) mmol/L Chloride (98-107) mmol/L Carbon Dioxide (22-30) mmol/L BUN (7-17) mg/dL Creatinine (0.52-1.04) mg/dL Glucose (74-99) mg/dL POC Glucose (mg/dL) 165 H (75-99) mg/dL Plasma Lactic Acid Walt 2.4 H* (0.7-2.0) mmol/L Calcium (8.4-10.2) mg/dL Procalcitonin (0.02-0.09) ng/mL 10/24/20 10/24/20 10/24/20 Range/Units 20:07 20:07 20:07 WBC 20.9 H (3.8-10.6) k/uL RBC 3.53 L (3.80-5.40) m/uL Hgb 11.1 L (11.4-16.0) gm/dL MCV 100.3 H (80.0-100.0) fL Plt Count 127 L D (150-450) k/uL Neutrophils # (Manual) (1.3-7.7) k/uL Metamyelocytes # (Man) (0) k/uL Myelocytes # (Manual) (0) k/uL Nucleated RBCs (0-0) /100 WBC PT (9.0-12.0) sec INR (<1.2) APTT (22.0-30.0) sec ABG pH (7.35-7.45) ABG pCO2 (35-45) mmHg ABG pO2 (83-108) mmHg ABG HCO3 (21-25) mmol/L ABG Total CO2 (19-24) mmol/L ABG O2 Saturation (94-97) % Potassium 5.9 H (3.5-5.1) mmol/L Chloride 116 H (98-107) mmol/L Carbon Dioxide 12 L (22-30) mmol/L BUN 55 H (7-17) mg/dL Creatinine 1.56 H (0.52-1.04) mg/dL Glucose 135 H (74-99) mg/dL POC Glucose (mg/dL) (75-99) mg/dL Plasma Lactic Acid Walt 7.9 H* (0.7-2.0) mmol/L Calcium 7.7 L (8.4-10.2) mg/dL Procalcitonin (0.02-0.09) ng/mL 10/24/20 10/24/20 10/25/20 Range/Units 23:06 23:24 01:15 WBC (3.8-10.6) k/uL RBC (3.80-5.40) m/uL Hgb (11.4-16.0) gm/dL MCV (80.0-100.0) fL Plt Count (150-450) k/uL Neutrophils # (Manual) (1.3-7.7) k/uL Metamyelocytes # (Man) (0) k/uL Myelocytes # (Manual) (0) k/uL Nucleated RBCs (0-0) /100 WBC PT (9.0-12.0) sec INR (<1.2) APTT (22.0-30.0) sec ABG pH (7.35-7.45) ABG pCO2 27 L (35-45) mmHg ABG pO2 >400 H (83-108) mmHg ABG HCO3 18 L (21-25) mmol/L ABG Total CO2 18 L (19-24) mmol/L ABG O2 Saturation 99.5 H (94-97) % Potassium (3.5-5.1) mmol/L Chloride (98-107) mmol/L Carbon Dioxide (22-30) mmol/L BUN (7-17) mg/dL Creatinine (0.52-1.04) mg/dL Glucose (74-99) mg/dL POC Glucose (mg/dL) 160 H (75-99) mg/dL Plasma Lactic Acid Walt 4.7 H* (0.7-2.0) mmol/L Calcium (8.4-10.2) mg/dL Procalcitonin (0.02-0.09) ng/mL 10/25/20 10/25/20 10/25/20 Range/Units 04:58 05:36 05:41 WBC 13.9 H (3.8-10.6) k/uL RBC (3.80-5.40) m/uL Hgb (11.4-16.0) gm/dL MCV (80.0-100.0) fL Plt Count 102 L (150-450) k/uL Neutrophils # (Manual) 11.54 H (1.3-7.7) k/uL Metamyelocytes # (Man) 0.28 H (0) k/uL Myelocytes # (Manual) 0.14 H (0) k/uL Nucleated RBCs 1 H (0-0) /100 WBC PT (9.0-12.0) sec INR (<1.2) APTT (22.0-30.0) sec ABG pH 7.51 H (7.35-7.45) ABG pCO2 24 L (35-45) mmHg ABG pO2 182 H (83-108) mmHg ABG HCO3 19 L (21-25) mmol/L ABG Total CO2 (19-24) mmol/L ABG O2 Saturation 99.7 H (94-97) % Potassium (3.5-5.1) mmol/L Chloride (98-107) mmol/L Carbon Dioxide (22-30) mmol/L BUN (7-17) mg/dL Creatinine (0.52-1.04) mg/dL Glucose (74-99) mg/dL POC Glucose (mg/dL) 157 H (75-99) mg/dL Plasma Lactic Acid Walt (0.7-2.0) mmol/L Calcium (8.4-10.2) mg/dL Procalcitonin (0.02-0.09) ng/mL 10/25/20 10/25/20 10/25/20 Range/Units 05:41 05:41 05:41 WBC (3.8-10.6) k/uL RBC (3.80-5.40) m/uL Hgb (11.4-16.0) gm/dL MCV (80.0-100.0) fL Plt Count (150-450) k/uL Neutrophils # (Manual) (1.3-7.7) k/uL Metamyelocytes # (Man) (0) k/uL Myelocytes # (Manual) (0) k/uL Nucleated RBCs (0-0) /100 WBC PT 20.4 H (9.0-12.0) sec INR 2.1 H (<1.2) APTT 101.5 H* (22.0-30.0) sec ABG pH (7.35-7.45) ABG pCO2 (35-45) mmHg ABG pO2 (83-108) mmHg ABG HCO3 (21-25) mmol/L ABG Total CO2 (19-24) mmol/L ABG O2 Saturation (94-97) % Potassium (3.5-5.1) mmol/L Chloride 116 H (98-107) mmol/L Carbon Dioxide 16 L (22-30) mmol/L BUN 55 H (7-17) mg/dL Creatinine 1.43 H (0.52-1.04) mg/dL Glucose 169 H (74-99) mg/dL POC Glucose (mg/dL) (75-99) mg/dL Plasma Lactic Acid Walt 2.5 H* (0.7-2.0) mmol/L Calcium 7.7 L (8.4-10.2) mg/dL Procalcitonin (0.02-0.09) ng/mL 10/25/20 Range/Units 11:39 WBC (3.8-10.6) k/uL RBC (3.80-5.40) m/uL Hgb (11.4-16.0) gm/dL MCV (80.0-100.0) fL Plt Count (150-450) k/uL Neutrophils # (Manual) (1.3-7.7) k/uL Metamyelocytes # (Man) (0) k/uL Myelocytes # (Manual) (0) k/uL Nucleated RBCs (0-0) /100 WBC PT (9.0-12.0) sec INR (<1.2) APTT (22.0-30.0) sec ABG pH (7.35-7.45) ABG pCO2 (35-45) mmHg ABG pO2 (83-108) mmHg ABG HCO3 (21-25) mmol/L ABG Total CO2 (19-24) mmol/L ABG O2 Saturation (94-97) % Potassium (3.5-5.1) mmol/L Chloride (98-107) mmol/L Carbon Dioxide (22-30) mmol/L BUN (7-17) mg/dL Creatinine (0.52-1.04) mg/dL Glucose (74-99) mg/dL POC Glucose (mg/dL) 183 H (75-99) mg/dL Plasma Lactic Acid Walt (0.7-2.0) mmol/L Calcium (8.4-10.2) mg/dL Procalcitonin (0.02-0.09) ng/mL Microbiology - Last 24 Hours (Table) 10/20/20 10:00 Blood Culture - Preliminary Blood No Growth after 120 hours 10/20/20 10:00 Blood Culture - Preliminary Blood No Growth after 120 hours 10/19/20 10:00 Blood Culture - Final Blood No Growth after 144 hours 10/25/20 06:49 Sputum Culture - Preliminary Sputum 10/24/20 09:11 Blood Culture - Final Blood 10/24/20 09:11 Blood Culture - Preliminary Blood 10/20/20 04:00 Blood Culture - Preliminary Blood No Growth after 120 hours 10/24/20 09:15 Urine Culture - Preliminary Urine,Catheterized Assessment and Plan Assessment: This is a 75-year-old female with past medical history significant for left lung cancer now in remission that presented to the emergency room with fevers. Patient was evaluated in the ER and admitted to the hospital for further management of her medical problems noted below. 1. Severe sepsis with septic shock, treated with aggressive IV fluid hydration and antibiotic. Required vasopressors till 10/22 then again on 10/24. Source of infection underlying pneumonia/bacteremia. Influenza, Covid-19, and C. diff screen negative 2. MSSA bacteremia, Repeat blood culture from 10/19 negative to date. Even worsening sepsis another set of blood culture was sent on 10/24 and is now positive for gram-positive cocci. Started on on IV cefazolin with stop date of 11/02 (2 weeks of antibiotics since negative blood culture). Infectious disease following closely. Echocardiogram with no intracardiac source. Computed tomography scan of the abdomen and pelvis with no source of infection 3. Severe sepsis with septic shock 4. Acute kidney injury, oliguric. hyperkalemia: Resolved. Avoid nephrotoxins. Nephrology consulted for further evaluation. 5. Acute respiratory failure requiring sedation and mechanical intubation successfully extubated 5. Metabolic acidosis secondary to above 6. Liver shock with coagulopathy secondary to hypotension. Liver enzymes trending now 7. Troponin elevation, non-thrombotic troponin leak secondary to severe sepsis. Cardiology consulted for further evaluation. Echocardiogram showed EF of 20- 25% 8. Chronic atrial fibrillation on anticoagulation with Coumadin, supratherapeutic INR on presentation status post vitamin K. Currently on IV heparin will continue to monitor for thrombocytopenia 9. Chronic congestive heart failure, systolic. Lasix 40 mg daily ordered 10. History of lung cancer in remission 11. Worsening thrombocytopenia: Probably secondary to presentation with severe sepsis. IV heparin was discontinued. We will continue to monitor closely. Today, I reviewed her medication list and lab work results Consider IV hydrocortisone for treatment of septic shock Cefepime may be discontinued as blood culture growing gram-positive cocci Discuss with cardiology to consider CRISTIANO given persistent gram-positive bacteremia Start tube feeding Overall prognosis guarded Current clinical condition discussed with her daughter at bedside. All of her questions answered to her satisfaction
--- NOTE | 2020-10-25 16:21 | P.PN ---
Subjective Progress Note Date: 10/25/20 This patient with the extensive multivessel coronary artery disease with high risk angioplasty and stenting of the left main, ischemic cardio myopathy was admitted to the hospital with the hypotension, sepsis requiring respiratory support and ventilation. Patient was extubated about 24 hours ago. Patient became hypotensive and acidotic this morning. Seemed to be lethargic. Patient is also hypotensive. Getting IV fluids and vasopressors. Patient is barely arousable. Patient's clinical condition appears to be critical. ID and pulmonary following the patient. Patient also had THROMBOCYTOPENIA. Patient's platelet count improved. Patient was restarted on heparin. Overall clinical condition seemed to be critical. We'll continue with supportive measures. Prognosis poor. He had 10/25/2020: This patient condition deteriorated hemodynamically requiring intubation last night. Patient also got IV fluids. Apparently blood cultures are growing gram-positive cocci. Antibiotic coverage has been changed. Patient urine output is fluctuating. There is change in mental status also. The va iris is intubated and sedated. Patient is maintaining control ventricular rate with atrial fibrillation. She is currently on IV heparin. Her platelet count has increased to 1 10,000. Her lactic a levels are improving. Calcitonin troponin is improving. However prognosis is guarded. Continue current medical therapy. ID and also nephrology following the patient Objective - Vital Signs Vital signs: Vital Signs Temp 97.8 F 10/25/20 08:00 Pulse 92 10/25/20 11:00 Resp 26 H 10/25/20 11:00 BP 92/64 10/25/20 11:00 Pulse Ox 99 10/25/20 11:00 Intake & Output 10/24/20 10/25/20 10/25/20 18:59 06:59 18:59 Intake Total 3509.823 6570.115 510.459 Output Total 248 272 160 Balance 3261.823 6298.115 350.459 Weight 113 kg Intake: IV 2927 5336 215 0.9 pressure bag 36 36 15 Calcium Gluconate 1 gm In 100 Sodium Chloride 0.9% 100 ml @ 400 mls/hr IVPB ONCE ONE Rx#:[id number] Cefepime 2 gm In Sodium 100 100 Chloride 0.9% 100 ml @ 25 mls/hr IVPB Q12HR [facility] Rx #:[id number] Sodium Chloride 0.9% 1, 1140 5100 100 000 ml @ 100 mls/hr IV . Q10H [facility] Rx#:[id number] Sodium Chloride 0.9% 500 1250 ml 250 ml @ 999 mls/hr IV .Q16M [facility] Rx#:[id number] Vancomycin 1,750 mg In 501 Sodium Chloride 0.9% 500 ml 500 ml @ 167 mls/hr IVPB Q24H [facility] Rx#: [id number] Intake, IV Titration 939.519 8874.115 295.459 Amount Heparin Sod,Pork in 0.45% 194.578 12.373 NaCl 25,000 unit In 0.45 % NaCl 1 250ml.bag @ 9.22 UNITS/KG/HR 10.004 mls/ hr IV .Q24H [facility] Rx#: [id number] Norepinephrine 4 mg In 582.823 984.238 210.939 Sodium Chloride 0.9% 250 ml @ 0.05 MCG/KG/MIN 20. 669 mls/hr IV .[id number] [facility] Rx#:[id number] propofoL 1,000 mg In 55.299 72.147 Empty Bag 1 bag @ Titrate IV .Q0M [facility] Rx#: [id number] Output: Urine 248 272 160 Other: Voiding Method Indwelling Catheter Indwelling Catheter Indwelling Catheter # Bowel Movements 1 ABP, PAP, CO, CI - Last Documented Arterial Blood Pressure 01/06 - Exam GENERAL EXAM: Patient is intubated on ventilator HEENT: Normocephalic. CHEST: No chest wall deformity. LUNGS: Diminished air exchange HEART: S1 and S2 normal. Distant heart sounds ABDOMEN: Soft. SKIN: No rashes CENTRAL NERVOUS SYSTEM: Deferred EXTREMITIES: No cyanosis, clubbing or edema. - Labs CBC & Chem 7: 10/25/20 05:41 10/25/20 05:41 Labs: Abnormal Lab Results - Last 24 Hours (Table) 10/24/20 10/24/20 10/24/20 Range/Units 09:11 16:50 16:50 WBC (3.8-10.6) k/uL RBC (3.80-5.40) m/uL Hgb (11.4-16.0) gm/dL MCV (80.0-100.0) fL Plt Count (150-450) k/uL Neutrophils # (Manual) (1.3-7.7) k/uL Metamyelocytes # (Man) (0) k/uL Myelocytes # (Manual) (0) k/uL Nucleated RBCs (0-0) /100 WBC PT (9.0-12.0) sec INR (<1.2) APTT 52.7 H (22.0-30.0) sec ABG pH (7.35-7.45) ABG pCO2 (35-45) mmHg ABG pO2 (83-108) mmHg ABG HCO3 (21-25) mmol/L ABG Total CO2 (19-24) mmol/L ABG O2 Saturation (94-97) % Potassium (3.5-5.1) mmol/L Chloride (98-107) mmol/L Carbon Dioxide (22-30) mmol/L BUN (7-17) mg/dL Creatinine (0.52-1.04) mg/dL Glucose (74-99) mg/dL POC Glucose (mg/dL) (75-99) mg/dL Plasma Lactic Acid Walt 2.4 H* (0.7-2.0) mmol/L Calcium (8.4-10.2) mg/dL Procalcitonin 3.19 H (0.02-0.09) ng/mL 10/24/20 10/24/20 10/24/20 Range/Units 17:32 20:07 20:07 WBC 20.9 H (3.8-10.6) k/uL RBC 3.53 L (3.80-5.40) m/uL Hgb 11.1 L (11.4-16.0) gm/dL MCV 100.3 H (80.0-100.0) fL Plt Count 127 L D (150-450) k/uL Neutrophils # (Manual) (1.3-7.7) k/uL Metamyelocytes # (Man) (0) k/uL Myelocytes # (Manual) (0) k/uL Nucleated RBCs (0-0) /100 WBC PT (9.0-12.0) sec INR (<1.2) APTT (22.0-30.0) sec ABG pH (7.35-7.45) ABG pCO2 (35-45) mmHg ABG pO2 (83-108) mmHg ABG HCO3 (21-25) mmol/L ABG Total CO2 (19-24) mmol/L ABG O2 Saturation (94-97) % Potassium (3.5-5.1) mmol/L Chloride (98-107) mmol/L Carbon Dioxide (22-30) mmol/L BUN (7-17) mg/dL Creatinine (0.52-1.04) mg/dL Glucose (74-99) mg/dL POC Glucose (mg/dL) 165 H (75-99) mg/dL Plasma Lactic Acid Walt 7.9 H* (0.7-2.0) mmol/L Calcium (8.4-10.2) mg/dL Procalcitonin (0.02-0.09) ng/mL 10/24/20 10/24/20 10/24/20 Range/Units 20:07 23:06 23:24 WBC (3.8-10.6) k/uL RBC (3.80-5.40) m/uL Hgb (11.4-16.0) gm/dL MCV (80.0-100.0) fL Plt Count (150-450) k/uL Neutrophils # (Manual) (1.3-7.7) k/uL Metamyelocytes # (Man) (0) k/uL Myelocytes # (Manual) (0) k/uL Nucleated RBCs (0-0) /100 WBC PT (9.0-12.0) sec INR (<1.2) APTT (22.0-30.0) sec ABG pH (7.35-7.45) ABG pCO2 27 L (35-45) mmHg ABG pO2 >400 H (83-108) mmHg ABG HCO3 18 L (21-25) mmol/L ABG Total CO2 18 L (19-24) mmol/L ABG O2 Saturation 99.5 H (94-97) % Potassium 5.9 H (3.5-5.1) mmol/L Chloride 116 H (98-107) mmol/L Carbon Dioxide 12 L (22-30) mmol/L BUN 55 H (7-17) mg/dL Creatinine 1.56 H (0.52-1.04) mg/dL Glucose 135 H (74-99) mg/dL POC Glucose (mg/dL) 160 H (75-99) mg/dL Plasma Lactic Acid Walt (0.7-2.0) mmol/L Calcium 7.7 L (8.4-10.2) mg/dL Procalcitonin (0.02-0.09) ng/mL 10/25/20 10/25/20 10/25/20 Range/Units 01:15 04:58 05:36 WBC (3.8-10.6) k/uL RBC (3.80-5.40) m/uL Hgb (11.4-16.0) gm/dL MCV (80.0-100.0) fL Plt Count (150-450) k/uL Neutrophils # (Manual) (1.3-7.7) k/uL Metamyelocytes # (Man) (0) k/uL Myelocytes # (Manual) (0) k/uL Nucleated RBCs (0-0) /100 WBC PT (9.0-12.0) sec INR (<1.2) APTT (22.0-30.0) sec ABG pH 7.51 H (7.35-7.45) ABG pCO2 24 L (35-45) mmHg ABG pO2 182 H (83-108) mmHg ABG HCO3 19 L (21-25) mmol/L ABG Total CO2 (19-24) mmol/L ABG O2 Saturation 99.7 H (94-97) % Potassium (3.5-5.1) mmol/L Chloride (98-107) mmol/L Carbon Dioxide (22-30) mmol/L BUN (7-17) mg/dL Creatinine (0.52-1.04) mg/dL Glucose (74-99) mg/dL POC Glucose (mg/dL) 157 H (75-99) mg/dL Plasma Lactic Acid Walt 4.7 H* (0.7-2.0) mmol/L Calcium (8.4-10.2) mg/dL Procalcitonin (0.02-0.09) ng/mL 10/25/20 10/25/20 10/25/20 Range/Units 05:41 05:41 05:41 WBC 13.9 H (3.8-10.6) k/uL RBC (3.80-5.40) m/uL Hgb (11.4-16.0) gm/dL MCV (80.0-100.0) fL Plt Count 102 L (150-450) k/uL Neutrophils # (Manual) 11.54 H (1.3-7.7) k/uL Metamyelocytes # (Man) 0.28 H (0) k/uL Myelocytes # (Manual) 0.14 H (0) k/uL Nucleated RBCs 1 H (0-0) /100 WBC PT 20.4 H (9.0-12.0) sec INR 2.1 H (<1.2) APTT 101.5 H* (22.0-30.0) sec ABG pH (7.35-7.45) ABG pCO2 (35-45) mmHg ABG pO2 (83-108) mmHg ABG HCO3 (21-25) mmol/L ABG Total CO2 (19-24) mmol/L ABG O2 Saturation (94-97) % Potassium (3.5-5.1) mmol/L Chloride 116 H (98-107) mmol/L Carbon Dioxide 16 L (22-30) mmol/L BUN 55 H (7-17) mg/dL Creatinine 1.43 H (0.52-1.04) mg/dL Glucose 169 H (74-99) mg/dL POC Glucose (mg/dL) (75-99) mg/dL Plasma Lactic Acid Walt (0.7-2.0) mmol/L Calcium 7.7 L (8.4-10.2) mg/dL Procalcitonin (0.02-0.09) ng/mL 10/25/20 10/25/20 Range/Units 05:41 11:39 WBC (3.8-10.6) k/uL RBC (3.80-5.40) m/uL Hgb (11.4-16.0) gm/dL MCV (80.0-100.0) fL Plt Count (150-450) k/uL Neutrophils # (Manual) (1.3-7.7) k/uL Metamyelocytes # (Man) (0) k/uL Myelocytes # (Manual) (0) k/uL Nucleated RBCs (0-0) /100 WBC PT (9.0-12.0) sec INR (<1.2) APTT (22.0-30.0) sec ABG pH (7.35-7.45) ABG pCO2 (35-45) mmHg ABG pO2 (83-108) mmHg ABG HCO3 (21-25) mmol/L ABG Total CO2 (19-24) mmol/L ABG O2 Saturation (94-97) % Potassium (3.5-5.1) mmol/L Chloride (98-107) mmol/L Carbon Dioxide (22-30) mmol/L BUN (7-17) mg/dL Creatinine (0.52-1.04) mg/dL Glucose (74-99) mg/dL POC Glucose (mg/dL) 183 H (75-99) mg/dL Plasma Lactic Acid Walt 2.5 H* (0.7-2.0) mmol/L Calcium (8.4-10.2) mg/dL Procalcitonin (0.02-0.09) ng/mL Microbiology - Last 24 Hours (Table) 10/24/20 09:11 Blood Culture Gram Stain - Preliminary Blood Blood Culture - Preliminary Staphylococcus aureus 10/20/20 10:00 Blood Culture - Preliminary Blood No Growth after 120 hours 10/20/20 10:00 Blood Culture - Preliminary Blood No Growth after 120 hours 10/19/20 10:00 Blood Culture - Final Blood No Growth after 144 hours 10/25/20 06:49 Sputum Culture - Preliminary Sputum 10/24/20 09:11 Blood Culture - Final Blood 10/20/20 04:00 Blood Culture - Preliminary Blood No Growth after 120 hours 10/24/20 09:15 Urine Culture - Preliminary Urine,Catheterized Assessment and Plan (1) Sepsis Current Visit: Yes Status: Acute Code(s): A41.9 - SEPSIS, UNSPECIFIED ORGANISM SNOMED Code(s): 48487232 (2) Elevated troponin Current Visit: Yes Status: Acute Code(s): R74.8 - ABNORMAL LEVELS OF OTHER SERUM ENZYMES SNOMED Code(s): 102509345 (3) History of lung cancer Current Visit: Yes Status: Acute Code(s): Z85.118 - PERSONAL HISTORY OF MALIGNANT NEOPLASM OF BRONCHUS AND LUNG SNOMED Code(s): 658052683 (4) UTI (urinary tract infection) Current Visit: Yes Status: Acute Code(s): N39.0 - URINARY TRACT INFECTION, SITE NOT SPECIFIED SNOMED Code(s): 46259715 (5) CHF (congestive heart failure) Current Visit: No Status: Acute Code(s): I50.9 - HEART FAILURE, UNSPECIFIED SNOMED Code(s): 30766819 (6) Atrial fibrillation Current Visit: Yes Status: Acute Code(s): I48.91 - UNSPECIFIED ATRIAL FIBRILLATION SNOMED Code(s): 40444984 Plan: Patient has multiple issues including septic shock, cardiomyopathy, renal failure, anemia, etc. Patient is on mechanical ventilator. Getting broad- spectrum antibiotics. Overall prognosis is guarded. We'll follow
[2020-10-25 18:04] LABS: Glucose,Whole Blood 142 mg/dL (75-99)
--- NOTE | 2020-10-25 21:58 | PN ---
PROGRESS NOTE DATE OF SERVICE: 10/25/2020 REASON FOR FOLLOW UP: Sepsis and MSSA bacteremia. INTERVAL HISTORY: Patient did go into respiratory distress last evening. The patient ended up getting intubated. The patient is currently hemodynamically stable, not on pressor support. FiO2 is currently 50%. No significant purulent secretions through ET or diarrhea reported by nursing staff. PHYSICAL EXAMINATION: Blood pressure 104/55, pulse of 84, temperature is 97.5. She is 100% on 50% FiO2. General description is a middle-aged female lying in bed in no distress. RESPIRATORY SYSTEM: Unlabored breathing. Decreased breath sounds in the bases. No wheeze. HEART: S1, S2. Regular rate and rhythm. ABDOMEN: Soft, no tenderness. EXTREMITIES: 1+ edema of the feet. LABS: Hemoglobin is 12.5, white count down to 13.9, BUN of 55, creatinine 1.43. Blood culture with Staph aureus. Sputum culture pending. DIAGNOSTIC IMPRESSION AND PLAN: Patient with acute respiratory failure, recurrent. This patient did have evidence of initial MSSA bacteremia not related to the pneumonia now with worsening of respiratory status requiring intubation. The patient is covered with vancomycin and cefepime to continue while waiting for the culture to finalize and monitor clinical course closely. MMODL / IJN: [id number] /
[2020-10-25 22:52] LABS: Glucose,Whole Blood 147 mg/dL (75-99)
[2020-10-26] MEDS: NOREPINEPHRINE 8 MG in SODIUM CHLORIDE 0.9% 250 ML IV SCH ×4 (03:54→23:32)
[2020-10-26 05:36] LABS: ABG Base Excess -3.5 mmol/L; ABG HCO3 21 mmol/L (21-25); ABG Oxygen Saturation 98.9 % (94-97); ABG PCO2 32 mmHg (35-45); ABG PH 7.43 (7.35-7.45); ABG PO2 145 mmHg (83-108); ABG TCO2 22 mmol/L (19-24); Allen Test Performed? Yes
[2020-10-26 06:05] LABS: Glucose,Whole Blood 212 mg/dL (75-99)
[2020-10-26 06:44] LABS: Albumin 2.1 g/dL (3.5-5.0); Calcium 7.5 mg/dL (8.4-10.2); Potassium 3.9 mmol/L (3.5-5.1); Total Bilirubin 1.7 mg/dL (0.2-1.3); Total Protein 5.2 g/dL (6.3-8.2)
[2020-10-26] MEDS: INSULIN ASPART (NovoLOG) 100 UNIT/ML VIAL SQ SCH ×4 (06:52→23:36)
[2020-10-26] MEDS: LEVOTHYROXINE 88 MCG TAB PO SCH (06:53)
--- NOTE | 2020-10-26 07:10 | XR ---
EXAMINATION TYPE: XR chest 1V portable DATE OF EXAM: 10/26/2020 COMPARISON: 10/25/2020 HISTORY: Tube placement TECHNIQUE: Single frontal view of the chest is obtained. FINDINGS: Lines and tubes are unchanged. Elevation of the left hemidiaphragm appears similar to the prior examination. Left paramediastinal ma ss is unchanged. Interval worsening of right basilar pleural-parenchymal disease. Cardiac silhouette appears similar to the prior examination with sternotomy changes. IMPRESSION: Interval worsening of bibasilar pleural-parenchymal disease.
[2020-10-26 07:32] LABS: HCT 36.1 % (34.0-46.0); HGB 11.8 gm/dL (11.4-16.0); Hypochromasia Slight; MCH 31.9 pg (25.0-35.0); MCHC 32.6 g/dL (31.0-37.0); MCV 97.8 fL (80.0-100.0); Macrocytosis Slight; Mean Platelet Volume 11.5; Platelet Count 98 k/uL (150-450); RDW 15.8 % (11.5-15.5); WBC 8.3 k/uL (3.8-10.6)
[2020-10-26] MEDS ORDERED: SODIUM BICARB 8.4% 50 ML SYR (1 MEQ/ML) IV STA ×2 (08:46→11:35)
--- NOTE | 2020-10-26 08:46 | P.PN ---
Subjective Patient is seen in follow-up for acute kidney injury. Renal function stable. Intubated. Receiving tube feeding. Remains on Levophed. Vital signs: Stable. On vasopressor support. HEENT: Intubated. LUNGS: Breath sounds decreased. HEART: Regular rhythm. ABDOMEN: Soft, obese. EXTREMITITES: 1+ edema. Objective - Vital Signs Vital signs: Vital Signs Temp 96.8 F L 10/26/20 04:00 Pulse 76 10/26/20 07:00 Resp 13 10/26/20 07:00 BP 112/58 10/26/20 07:00 Pulse Ox 96 10/26/20 07:00 Intake & Output 10/25/20 10/26/20 10/26/20 18:59 06:59 18:59 Intake Total 2192.459 1978.971 225.377 Output Total 675 510 45 Balance 2948.486 0181.971 180.377 Intake: IV 1539 1133 103 0.9 pressure bag 39 33 3 Cefepime 2 gm In Sodium 100 Chloride 0.9% 100 ml @ 25 mls/hr IVPB Q12HR [facility] Rx #:[id number] Sodium Chloride 0.9% 1, 900 1100 100 000 ml @ 100 mls/hr IV . Q10H [facility] Rx#:[id number] Vancomycin 1,750 mg In 500 Sodium Chloride 0.9% 500 ml 500 ml @ 167 mls/hr IVPB Q24H [facility] Rx#: [id number] Intake, IV Titration 653.459 455.971 82.377 Amount Heparin Sod,Pork in 0.45% 12.373 NaCl 25,000 unit In 0.45 % NaCl 1 250ml.bag @ 9.22 UNITS/KG/HR 10.004 mls/ hr IV .Q24H [facility] Rx#: [id number] Norepinephrine 4 mg In 210.939 Sodium Chloride 0.9% 250 ml @ 0.05 MCG/KG/MIN 20. 669 mls/hr IV .[id number] [facility] Rx#:[id number] Norepinephrine 8 mg In 258.000 258.000 Sodium Chloride 0.9% 250 ml @ 0.2 MCG/KG/MIN 43. 731 mls/hr IV .Q5H54M [facility] Rx#:[id number] propofoL 1,000 mg In 172.147 197.971 82.377 Empty Bag 1 bag @ Titrate IV .Q0M [facility] Rx#: [id number] Tube Feeding 300 40 Other 90 Output: Urine 675 510 45 Other: Voiding Method Indwelling Catheter Indwelling Catheter ABP, PAP, CO, CI - Last Documented Arterial Blood Pressure 01/06 - Labs CBC & Chem 7: 10/26/20 05:50 10/26/20 05:50 Labs: Abnormal Lab Results - Last 24 Hours (Table) 10/25/20 10/25/20 10/25/20 Range/Units 11:39 17:46 18:03 RBC (3.80-5.40) m/uL RDW (11.5-15.5) % Plt Count (150-450) k/uL APTT 60.4 H (22.0-30.0) sec ABG pCO2 (35-45) mmHg ABG pO2 (83-108) mmHg ABG O2 Saturation (94-97) % Sodium (137-145) mmol/L Chloride (98-107) mmol/L Carbon Dioxide (22-30) mmol/L BUN (7-17) mg/dL Creatinine (0.52-1.04) mg/dL Glucose (74-99) mg/dL POC Glucose (mg/dL) 183 H 142 H (75-99) mg/dL Calcium (8.4-10.2) mg/dL Total Bilirubin (0.2-1.3) mg/dL AST (14-36) U/L Alkaline Phosphatase (38-126) U/L Total Protein (6.3-8.2) g/dL Albumin (3.5-5.0) g/dL 10/25/20 10/26/20 10/26/20 Range/Units 22:50 05:30 05:50 RBC 3.70 L (3.80-5.40) m/uL RDW 15.8 H (11.5-15.5) % Plt Count 98 L (150-450) k/uL APTT (22.0-30.0) sec ABG pCO2 32 L (35-45) mmHg ABG pO2 145 H (83-108) mmHg ABG O2 Saturation 98.9 H (94-97) % Sodium (137-145) mmol/L Chloride (98-107) mmol/L Carbon Dioxide (22-30) mmol/L BUN (7-17) mg/dL Creatinine (0.52-1.04) mg/dL Glucose (74-99) mg/dL POC Glucose (mg/dL) 147 H (75-99) mg/dL Calcium (8.4-10.2) mg/dL Total Bilirubin (0.2-1.3) mg/dL AST (14-36) U/L Alkaline Phosphatase (38-126) U/L Total Protein (6.3-8.2) g/dL Albumin (3.5-5.0) g/dL 10/26/20 10/26/20 10/26/20 Range/Units 05:50 05:50 06:04 RBC (3.80-5.40) m/uL RDW (11.5-15.5) % Plt Count (150-450) k/uL APTT 56.1 H (22.0-30.0) sec ABG pCO2 (35-45) mmHg ABG pO2 (83-108) mmHg ABG O2 Saturation (94-97) % Sodium 146 H (137-145) mmol/L Chloride 116 H (98-107) mmol/L Carbon Dioxide 20 L (22-30) mmol/L BUN 56 H (7-17) mg/dL Creatinine 1.37 H (0.52-1.04) mg/dL Glucose 186 H (74-99) mg/dL POC Glucose (mg/dL) 212 H (75-99) mg/dL Calcium 7.5 L (8.4-10.2) mg/dL Total Bilirubin 1.7 H (0.2-1.3) mg/dL AST 86 H (14-36) U/L Alkaline Phosphatase 208 H (38-126) U/L Total Protein 5.2 L (6.3-8.2) g/dL Albumin 2.1 L (3.5-5.0) g/dL Microbiology - Last 24 Hours (Table) 10/20/20 04:00 Blood Culture - Final Blood No Growth after 144 hours 10/24/20 09:15 Urine Culture - Final Urine,Catheterized 10/24/20 09:11 Blood Culture Gram Stain - Preliminary Blood Blood Culture - Preliminary Staphylococcus aureus 10/20/20 10:00 Blood Culture - Preliminary Blood No Growth after 120 hours 10/20/20 10:00 Blood Culture - Preliminary Blood No Growth after 120 hours 10/19/20 10:00 Blood Culture - Final Blood No Growth after 144 hours 10/25/20 06:49 Sputum Culture - Preliminary Sputum 10/24/20 09:11 Blood Culture - Final Blood Assessment and Plan Plan: Assessment: 1. Acute kidney injury secondary to ATN secondary to hypotension and sepsis. Creatinine tod stable at 1.37ay. 2. MSSA bacteremia maintained on antibiotics. 3. Metabolic acidosis secondary to acute kidney injury, lactic acidosis. Partially also compensatory for respiratory alkalosis. 4. Acute hypoxic respiratory failure. 5. History of non-small cell lung cancer. 6. Chronic systolic CHF with ejection fraction of 20-25%. 7. Hypernatremia from lack of oral water intake. Plan: Maintain normal saline - decrease rate to 70 mL an hour. Maintain tube feeding. Add free water flushes at a rate of 200 mL every 4 hours. 2 A of sodium bicarb IV push now. Wean FiO2 and vasopressors. Continue to monitor renal function and urine output.
[2020-10-26] MEDS: CHLORHEXIDINE GLUCONATE 15 ML CUP MUCOUS MEM SCH ×2 (09:13→20:37)
[2020-10-26] MEDS: PANTOPRAZOLE 40 MG/10 ML VIAL IVP SCH (09:14)
[2020-10-26] MEDS: CEFEPIME 2 GM in SODIUM CHLORIDE 0.9% 100 ML IVPB SCH ×2 (09:14→20:37)
[2020-10-26] MEDS: SODIUM CHLORIDE 0.9% 1,000 ML IV SCH ×2 (09:29→17:27)
[2020-10-26] MEDS: HEPARIN SOD,PORK IN 0.45% NACL 25,000 UNIT in 0.45% NACL 1 250ML.BAG IV SCH ×2 (09:31→23:36)
[2020-10-26] MEDS: VANCOMYCIN 1,750 MG in SODIUM CHLORIDE 0.9% 500 ML 500 ML IVPB SCH (10:18)
--- NOTE | 2020-10-26 10:27 | P.PN ---
Subjective HISTORY OF PRESENTING ILLNESS This is a pleasant 75-year-old female past medical history significant for hypertension, coronary artery disease status post bypass grafting and high risk PCI of the left main and LAD, ischemic cardiomyopathy, chronic systolic heart failure, dyslipidemia, diabetes mellitus and paroxysmal atrial fibrillation. She follows in the office with Dr. Villarreal. We have been asked to see in consultation for elevated troponin. She presented to the hospital with generalized weakness and elevated blood sugar. She also was complaining of intermittently having a fever with associated body aches. She denies having any chest pain or shortness of breath. She has had no palpitations or dizziness. She was found to have positive blood cultures with gram-positive cocci. She is currently being treated with IV antibiotics awaiting infectious disease evaluation. Most recent echocardiogram obtained December 2019 revealed impaired LV systolic function with ejection fraction 40%, grade 3 diastolic dysfunction, severely dilated left atrium, moderate aortic regurgitation, mild mitral regurgitation, [id number] tricuspid regurgitation and mild pulmonary hypertension. Most recent cardiac catheterization performed in November 2019 she underwent orbital arthrectomy and stenting of the left main with Impella support at [facility]. 10/23/2020 Patient was seen and examined in the intensive care unit on mechanical ventilator. She is sedated with diprivan. She was placed back on heparin infusion. Her platelets have improved. Blood pressure 111/57 heart rate 72 and afebrile. Laboratory data reviewed, WBC 8.3, hemoglobin 11.8, platelets 98, pH 7.43, pCO2 32, pO2 145, sodium 146, potassium 3.9 and creatinine 1.37. Currently maintained on IV antibiotics, heparin infusion, levophed, and diprivan. Heart ra lizette have been mostly controlled in the previous 24 hours. Beta blockers on hold. Chest xray today shows interval worsening of bibasilar pleural parenchymal disease. PHYSICAL EXAMINATION CONSTITUTIONAL: No apparent distress. HEENT: Head is normocephalic. Pupils are equal, round. Sclerae anicteric. Mucous membranes of the mouth are moist. No JVD. Bilateral carotid bruit. CHEST EXAMINATION: Lungs are clear to auscultation. No chest wall tenderness is noted on palpation or with deep breathing. HEART EXAMINATION: Irregular rate and rhythm. S1, S2 heard. Systolic ejection murmur at the base, no gallops or rub. EXTREMITIES: 2+ peripheral pulses, bilateral upper and lower extremity non-pitting edema and no calf tenderness. ASSESSMENT Bacteremia, MSSA Sepsis with septic shock Acute kidney injury Lactic acidosis Troponin elevation secondary to renal function and sepsis not primary myocardial injury Coagulopathy Transaminitis Hypokalemia Hypomagnesemia Thrombocytopenia Coronary artery disease s/p bypass grafting and high risk left main PCI Chronic systolic and diastolic heart failure, clinically euvolemic Ischemic cardiomyopathy Hypertension Paroxysmal atrial fibrillation on warfarin, went into afib 10/19. Dyslipidemia History of lung cancer PLAN Continue to wean vasopressors as tolerated. Heparin drip for thromboembolic protection. We will continue to follow and make recommendations accordingly. Overall prognosis remains poor. Nurse Practitioner note has been reviewed, I agree with a documented findings and plan of care. Patient was seen and examined. Objective - Vital Signs Vital signs: Vital Signs Temp 97.7 F 10/26/20 08:00 Pulse 72 10/26/20 10:00 Resp 26 H 10/26/20 10:00 BP 111/57 10/26/20 10:00 Pulse Ox 96 10/26/20 10:00 Intake & Output 10/25/20 10/26/20 10/26/20 18:59 06:59 18:59 Intake Total 2192.459 1978.971 888.016 Output Total 675 510 145 Balance 6984.284 7493.971 743.016 Intake: IV 1539 1133 415 0.9 pressure bag 39 33 15 Cefepime 2 gm In Sodium 100 100 Chloride 0.9% 100 ml @ 25 mls/hr IVPB Q12HR [facility] Rx #:[id number] Sodium Chloride 0.9% 1, 900 1100 300 000 ml @ 50 mls/hr IV . Q20H [facility] Rx#:[id number] Vancomycin 1,750 mg In 500 Sodium Chloride 0.9% 500 ml 500 ml @ 167 mls/hr IVPB Q24H [facility] Rx#: [id number] Intake, IV Titration 653.459 455.971 243.016 Amount Heparin Sod,Pork in 0.45% 12.373 NaCl 25,000 unit In 0.45 % NaCl 1 250ml.bag @ 9.22 UNITS/KG/HR 10.004 mls/ hr IV .Q24H [facility] Rx#: [id number] Norepinephrine 4 mg In 210.939 Sodium Chloride 0.9% 250 ml @ 0.05 MCG/KG/MIN 20. 669 mls/hr IV .[id number] [facility] Rx#:[id number] Norepinephrine 8 mg In 258.000 258.000 160.639 Sodium Chloride 0.9% 250 ml @ 0.2 MCG/KG/MIN 43. 731 mls/hr IV .Q5H54M [facility] Rx#:[id number] propofoL 1,000 mg In 172.147 197.971 82.377 Empty Bag 1 bag @ Titrate IV .Q0M [facility] Rx#: [id number] Tube Feeding 300 200 Other 90 30 Output: Urine 675 510 145 Other: Voiding Method Indwelling Catheter Indwelling Catheter Indwelling Catheter ABP, PAP, CO, CI - Last Documented Arterial Blood Pressure 107/51 - Labs CBC & Chem 7: 10/26/20 05:50 10/26/20 05:50 Labs: Abnormal Lab Results - Last 24 Hours (Table) 10/25/20 10/25/20 10/25/20 Range/Units 11:39 17:46 18:03 RBC (3.80-5.40) m/uL RDW (11.5-15.5) % Plt Count (150-450) k/uL APTT 60.4 H (22.0-30.0) sec ABG pCO2 (35-45) mmHg ABG pO2 (83-108) mmHg ABG O2 Saturation (94-97) % Sodium (137-145) mmol/L Chloride (98-107) mmol/L Carbon Dioxide (22-30) mmol/L BUN (7-17) mg/dL Creatinine (0.52-1.04) mg/dL Glucose (74-99) mg/dL POC Glucose (mg/dL) 183 H 142 H (75-99) mg/dL Calcium (8.4-10.2) mg/dL Total Bilirubin (0.2-1.3) mg/dL AST (14-36) U/L Alkaline Phosphatase (38-126) U/L Total Protein (6.3-8.2) g/dL Albumin (3.5-5.0) g/dL 10/25/20 10/26/20 10/26/20 Range/Units 22:50 05:30 05:50 RBC 3.70 L (3.80-5.40) m/uL RDW 15.8 H (11.5-15.5) % Plt Count 98 L (150-450) k/uL APTT (22.0-30.0) sec ABG pCO2 32 L (35-45) mmHg ABG pO2 145 H (83-108) mmHg ABG O2 Saturation 98.9 H (94-97) % Sodium (137-145) mmol/L Chloride (98-107) mmol/L Carbon Dioxide (22-30) mmol/L BUN (7-17) mg/dL Creatinine (0.52-1.04) mg/dL Glucose (74-99) mg/dL POC Glucose (mg/dL) 147 H (75-99) mg/dL Calcium (8.4-10.2) mg/dL Total Bilirubin (0.2-1.3) mg/dL AST (14-36) U/L Alkaline Phosphatase (38-126) U/L Total Protein (6.3-8.2) g/dL Albumin (3.5-5.0) g/dL 10/26/20 10/26/20 10/26/20 Range/Units 05:50 05:50 06:04 RBC (3.80-5.40) m/uL RDW (11.5-15.5) % Plt Count (150-450) k/uL APTT 56.1 H (22.0-30.0) sec ABG pCO2 (35-45) mmHg ABG pO2 (83-108) mmHg ABG O2 Saturation (94-97) % Sodium 146 H (137-145) mmol/L Chloride 116 H (98-107) mmol/L Carbon Dioxide 20 L (22-30) mmol/L BUN 56 H (7-17) mg/dL Creatinine 1.37 H (0.52-1.04) mg/dL Glucose 186 H (74-99) mg/dL POC Glucose (mg/dL) 212 H (75-99) mg/dL Calcium 7.5 L (8.4-10.2) mg/dL Total Bilirubin 1.7 H (0.2-1.3) mg/dL AST 86 H (14-36) U/L Alkaline Phosphatase 208 H (38-126) U/L Total Protein 5.2 L (6.3-8.2) g/dL Albumin 2.1 L (3.5-5.0) g/dL Microbiology - Last 24 Hours (Table) 10/25/20 06:49 Gram Stain - Preliminary Sputum Sputum Culture - Preliminary 10/20/20 04:00 Blood Culture - Final Blood No Growth after 144 hours 10/24/20 09:15 Urine Culture - Final Urine,Catheterized 10/24/20 09:11 Blood Culture Gram Stain - Preliminary Blood Blood Culture - Preliminary Staphylococcus aureus 10/20/20 10:00 Blood Culture - Preliminary Blood No Growth after 120 hours 10/20/20 10:00 Blood Culture - Preliminary Blood No Growth after 120 hours 10/19/20 10:00 Blood Culture - Final Blood No Growth after 144 hours 10/24/20 09:11 Blood Culture - Final Blood
[2020-10-26 10:57] LABS: Band Neutrophils % 6 %; Eosinophils # (M) 0.17 k/uL (0-0.7); Lymphocytes # (M) 0.75 k/uL (1.0-4.8); Metamyelocytes # (M) 0.25 k/uL (0); Metamyelocytes % 3 %; Monocytes # (M) 0.42 k/uL (0-1.0); Myelocytes # (M) 0.08 k/uL (0); Myelocytes % 1 %; Neutrophils % (M) 76 %; Nucleated Red Blood Cells 0 /100 WBC (0-0); Total Cells Counted 200
[2020-10-26 11:57] LABS: Glucose,Whole Blood 214 mg/dL (75-99)
--- NOTE | 2020-10-26 12:39 | P.PN ---
Subjective Progress Note Date: 10/26/20 Patient is sedated and intubated. She is on minimal vent settings. She is still requiring low dose of vasopressors managed by supply chain design manager. Objective - Vital Signs Vital signs: Vital Signs Temp 97.5 F L 10/26/20 12:00 Pulse 74 10/26/20 12:00 Resp 26 H 10/26/20 12:00 BP 92/51 10/26/20 12:00 Pulse Ox 97 10/26/20 12:00 Intake & Output 10/25/20 10/26/20 10/26/20 18:59 06:59 18:59 Intake Total 2192.459 1848.870 0998.427 Output Total 675 510 200 Balance 0919.287 4113.971 1634.427 Weight 113 kg Intake: IV 1539 1133 1027 0.9 pressure bag 39 33 27 Cefepime 2 gm In Sodium 100 100 Chloride 0.9% 100 ml @ 25 mls/hr IVPB Q12HR [facility] Rx #:[id number] Sodium Chloride 0.9% 1, 900 1100 400 000 ml @ 50 mls/hr IV . Q20H [facility] Rx#:[id number] Vancomycin 1,750 mg In 500 500 Sodium Chloride 0.9% 500 ml 500 ml @ 167 mls/hr IVPB Q24H [facility] Rx#: [id number] Intake, IV Titration 653.459 455.971 327.427 Amount Heparin Sod,Pork in 0.45% 12.373 NaCl 25,000 unit In 0.45 % NaCl 1 250ml.bag @ 9.22 UNITS/KG/HR 10.004 mls/ hr IV .Q24H [facility] Rx#: [id number] Norepinephrine 4 mg In 210.939 Sodium Chloride 0.9% 250 ml @ 0.05 MCG/KG/MIN 20. 669 mls/hr IV .[id number] [facility] Rx#:[id number] Norepinephrine 8 mg In 258.000 258.000 160.639 Sodium Chloride 0.9% 250 ml @ 0.2 MCG/KG/MIN 43. 731 mls/hr IV .Q5H54M [facility] Rx#:[id number] propofoL 1,000 mg In 172.147 197.971 166.788 Empty Bag 1 bag @ Titrate IV .Q0M [facility] Rx#: [id number] Tube Feeding 300 250 Other 90 230 Output: Urine 675 510 200 Other: Voiding Method Indwelling Catheter Indwelling Catheter Indwelling Catheter ABP, PAP, CO, CI - Last Documented Arterial Blood Pressure 126/51 - Exam General: The patient is sedated and intubated Eye: there is normal conjunctiva bilaterally. Neck: The neck is supple, there is no JVD. Cardiovascular: Normal S1-S2, no S3-S4, no murmurs. Respiratory: Lungs clear to auscultation bilaterally Gastrointestinal: Abdomen is soft, nontender Musculoskeletal: There is no pedal edema. Skin: Skin is warm and dry - Labs CBC & Chem 7: 10/26/20 05:50 10/26/20 05:50 Labs: Abnormal Lab Results - Last 24 Hours (Table) 10/25/20 10/25/20 10/25/20 Range/Units 17:46 18:03 22:50 RBC (3.80-5.40) m/uL RDW (11.5-15.5) % Plt Count (150-450) k/uL Lymphocytes # (Manual) (1.0-4.8) k/uL Metamyelocytes # (Man) (0) k/uL Myelocytes # (Manual) (0) k/uL APTT 60.4 H (22.0-30.0) sec ABG pCO2 (35-45) mmHg ABG pO2 (83-108) mmHg ABG O2 Saturation (94-97) % Sodium (137-145) mmol/L Chloride (98-107) mmol/L Carbon Dioxide (22-30) mmol/L BUN (7-17) mg/dL Creatinine (0.52-1.04) mg/dL Glucose (74-99) mg/dL POC Glucose (mg/dL) 142 H 147 H (75-99) mg/dL Calcium (8.4-10.2) mg/dL Total Bilirubin (0.2-1.3) mg/dL AST (14-36) U/L Alkaline Phosphatase (38-126) U/L Total Protein (6.3-8.2) g/dL Albumin (3.5-5.0) g/dL 10/26/20 10/26/20 10/26/20 Range/Units 05:30 05:50 05:50 RBC 3.70 L (3.80-5.40) m/uL RDW 15.8 H (11.5-15.5) % Plt Count 98 L (150-450) k/uL Lymphocytes # (Manual) 0.75 L (1.0-4.8) k/uL Metamyelocytes # (Man) 0.25 H (0) k/uL Myelocytes # (Manual) 0.08 H (0) k/uL APTT 56.1 H (22.0-30.0) sec ABG pCO2 32 L (35-45) mmHg ABG pO2 145 H (83-108) mmHg ABG O2 Saturation 98.9 H (94-97) % Sodium (137-145) mmol/L Chloride (98-107) mmol/L Carbon Dioxide (22-30) mmol/L BUN (7-17) mg/dL Creatinine (0.52-1.04) mg/dL Glucose (74-99) mg/dL POC Glucose (mg/dL) (75-99) mg/dL Calcium (8.4-10.2) mg/dL Total Bilirubin (0.2-1.3) mg/dL AST (14-36) U/L Alkaline Phosphatase (38-126) U/L Total Protein (6.3-8.2) g/dL Albumin (3.5-5.0) g/dL 10/26/20 10/26/20 10/26/20 Range/Units 05:50 06:04 11:53 RBC (3.80-5.40) m/uL RDW (11.5-15.5) % Plt Count (150-450) k/uL Lymphocytes # (Manual) (1.0-4.8) k/uL Metamyelocytes # (Man) (0) k/uL Myelocytes # (Manual) (0) k/uL APTT (22.0-30.0) sec ABG pCO2 (35-45) mmHg ABG pO2 (83-108) mmHg ABG O2 Saturation (94-97) % Sodium 146 H (137-145) mmol/L Chloride 116 H (98-107) mmol/L Carbon Dioxide 20 L (22-30) mmol/L BUN 56 H (7-17) mg/dL Creatinine 1.37 H (0.52-1.04) mg/dL Glucose 186 H (74-99) mg/dL POC Glucose (mg/dL) 212 H 214 H (75-99) mg/dL Calcium 7.5 L (8.4-10.2) mg/dL Total Bilirubin 1.7 H (0.2-1.3) mg/dL AST 86 H (14-36) U/L Alkaline Phosphatase 208 H (38-126) U/L Total Protein 5.2 L (6.3-8.2) g/dL Albumin 2.1 L (3.5-5.0) g/dL Microbiology - Last 24 Hours (Table) 10/20/20 10:00 Blood Culture - Final Blood No Growth after 144 hours 10/20/20 10:00 Blood Culture - Final Blood No Growth after 144 hours 10/25/20 06:49 Gram Stain - Preliminary Sputum Sputum Culture - Preliminary 10/20/20 04:00 Blood Culture - Final Blood No Growth after 144 hours 10/24/20 09:15 Urine Culture - Final Urine,Catheterized 10/24/20 09:11 Blood Culture Gram Stain - Preliminary Blood Blood Culture - Preliminary Staphylococcus aureus 10/19/20 10:00 Blood Culture - Final Blood No Growth after 144 hours 10/24/20 09:11 Blood Culture - Final Blood Assessment and Plan Assessment: This is a 75-year-old female with past medical history significant for left lung cancer now in remission that presented to the emergency room with fevers. Patient was evaluated in the ER and admitted to the hospital for further management of her medical problems noted below. 1. Severe sepsis with septic shock, treated with aggressive IV fluid hydration and antibiotic. Required vasopressors till 10/22 then again on 10/24. Source of infection underlying pneumonia/bacteremia. Influenza, Covid-19, and C. diff screen negative 2. MSSA bacteremia, Repeat blood culture from 10/19 negative to date. given w orsening sepsis another set of blood culture was sent on 10/24 and is now positive for gram-positive cocci. Repeat blood cultures from 10/25 pending Started on on IV cefazolin then switched to vancomycin and cefepime. Infectious disease following closely. Echocardiogram with no intracardiac source. Computed tomography scan of the abdomen and pelvis with no source of infection 3. Severe sepsis with septic shock 4. Acute kidney injury, oliguric. hyperkalemia: Resolved. Avoid nephrotoxins. Nephrology consulted for further evaluation. 5. Acute respiratory failure requiring sedation and mechanical intubation successfully extubated and then reintubated on 10/24 5. Metabolic acidosis secondary to above 6. Liver shock with coagulopathy secondary to hypotension. Liver enzymes trending now 7. Troponin elevation, non-thrombotic troponin leak secondary to severe sepsis. Cardiology consulted for further evaluation. Echocardiogram showed EF of 20- 25% 8. Chronic atrial fibrillation on anticoagulation with Coumadin, supratherapeutic INR on presentation status post vitamin K. Currently on IV heparin will continue to monitor for thrombocytopenia 9. Chronic congestive heart failure, systolic. Lasix 40 mg daily ordered 10. History of lung cancer in remission 11. Worsening thrombocytopenia: Probably secondary to presentation with severe sepsis. IV heparin was discontinued. We will continue to monitor closely. Today, I reviewed her medication list and lab work results Cefepime may be discontinued as blood culture growing staph species Discuss with cardiology to consider CRISTIANO given persistent gram-positive bacteremia 2 feeding per dietitian Overall prognosis guarded
--- NOTE | 2020-10-26 12:46 | P.PN ---
Subjective Progress Note Date: 10/26/20 Principal diagnosis: Acute hypoxic respiratory failure secondary to Septic shock secondary to MSSA sepsis and bacteremia. 10/25/2020, the patient is intubated again.I had to intubate the patient again because of hemodynamic instability, hypotension, metabolic acidosis, and altered mentation. As stated earlier, recurrent bouts of sepsis was suspected as the patient was becoming hypotensive, tachycardic and she has also developed worsening and leukocytosis. For that reason, the patient was given IV fluids and she was aggressively resuscitated IV fluids received a total of 60-70 fluids yesterday and the net fluid balance is +9.5 L over the past 24 hours. Also, the patient was broadened in terms of her antibiotic coverage and she was placed on a combination of cefepime and vancomycin. Repeat cultures are still pending for now. Pro-calcitonin is still downtrending and is down to 3.19. Note that the lactic acid came as high as 7.9 and currently down to 2.5. This morning, the patient is intubated on a mechanical ventilator. the patient is well sedated with propofol which is running at 50 mics per kilogram per minute. The patient At this point in time she is an assist-control mode at the rate of 26 with a tidal volume of 500 and FiO2 of 50% with a PEEP of 5. Blood gases from today showed a pH of 7.51 with a pCO2 of 24 and pO2 182. the patient is quite hyp otensive still. Pressor requirements has fluctuated throughout the day yesterday. Note that she has advanced cardiomyopathy with ejection fraction of 20-25%. Currently, norepinephrine has been weaned down to 0.2 mcg/kg per minute.Chest x-ray showing some slight increase in the left-sided pleural effusion. Is also left suprahilar opacity consistent with previous history of non-small cell lung cancer. White cell count peaked at 20.9 and it dropped down to 13.9. She remains in atrial fibrillation. Heart is less tachycardic. Noted the patient also developed an acute kidney injury. Creatinine was as high as 1.5 along with lactic acidosis. The patient was given bicarb infusion and the creatinine today is at 1.46. Lactic acid level is improving. Urine output is fluctuating,, currently she is producing somewhere between 5-30 mL an hour of urine output. She remains on IV heparin. Platelet counts have been stable, and the patient is also On IV heparin.I'm seeing this patient along with various consultants from cardiology, nephrology and infectious disease. Patient was reevaluated today on 10/26/2020, patient was reintubated on the although she was extubated on the , and remains on mechanical ventilation again since the . She is presently on assist control rate of 26 tidal volume is 400 FiO2 is 40% PEEP of 5. ABG showed a pO2 of 145 and I was on 50% pCO2 of 32 pH of 7.43 hence the FiO2 was decreased down to 40%. Patient is on multiple drips including propofol and 50 but granted per kilo per minute, she is also on heparin and IV fluid at 0.9 mL 100 mL per hour. Current down to 50 mL per hour. Blood cultures have been positive intermittently for MSSA patient remains on cefepime and on vancomycin. Looking back at the chart patient was intubated initially on 10/19 extubated on 10/22 reintubated on 10/24. Her last echocardiogram showed poor LV function with ejection fraction of 20-25% at best. Patient is receiving tube feeding/Glucerna at 40 ML's per hour. She is not requiring any norepinephrine at this point. Blood pressure seems to be relatively stable, patient is in atrial fibrillation with controlled rate of 80. Looking back at the chart she had initial presentation of sepsis and mild DKA. Labs today showed relatively normal CBC with WBC count of 8.3 hemoglobin 11.8. PTT is 56. Platelets are 98,000. Sodium is 146 potassium 3.9 chloride 116 bicarb is 20 BUN is 56 creatinine 1.37. Last blood culture from the was positive, and the one from the is negative so far. Left paramediastinal mass remains about the same. Objective - Vital Signs Vital signs: Vital Signs Temp 97.5 F L 10/26/20 12:00 Pulse 74 10/26/20 12:00 Resp 26 H 10/26/20 12:00 BP 92/51 10/26/20 12:00 Pulse Ox 97 10/26/20 12:00 Intake & Output 10/25/20 10/26/20 10/26/20 18:59 06:59 18:59 Intake Total 2192.459 8612.110 8240.427 Output Total 675 510 200 Balance 1916.534 4333.971 1634.427 Weight 113 kg Intake: IV 1539 1133 1027 0.9 pressure bag 39 33 27 Cefepime 2 gm In Sodium 100 100 Chloride 0.9% 100 ml @ 25 mls/hr IVPB Q12HR [facility] Rx #:[id number] Sodium Chloride 0.9% 1, 900 1100 400 000 ml @ 50 mls/hr IV . Q20H [facility] Rx#:[id number] Vancomycin 1,750 mg In 500 500 Sodium Chloride 0.9% 500 ml 500 ml @ 167 mls/hr IVPB Q24H [facility] Rx#: [id number] Intake, IV Titration 653.459 455.971 327.427 Amount Heparin Sod,Pork in 0.45% 12.373 NaCl 25,000 unit In 0.45 % NaCl 1 250ml.bag @ 9.22 UNITS/KG/HR 10.004 mls/ hr IV .Q24H [facility] Rx#: [id number] Norepinephrine 4 mg In 210.939 Sodium Chloride 0.9% 250 ml @ 0.05 MCG/KG/MIN 20. 669 mls/hr IV .[id number] [facility] Rx#:[id number] Norepinephrine 8 mg In 258.000 258.000 160.639 Sodium Chloride 0.9% 250 ml @ 0.2 MCG/KG/MIN 43. 731 mls/hr IV .Q5H54M [facility] Rx#:[id number] propofoL 1,000 mg In 172.147 197.971 166.788 Empty Bag 1 bag @ Titrate IV .Q0M [facility] Rx#: [id number] Tube Feeding 300 250 Other 90 230 Output: Urine 675 510 200 Other: Voiding Method Indwelling Catheter Indwelling Catheter Indwelling Catheter ABP, PAP, CO, CI - Last Documented Arterial Blood Pressure 126/51 - Exam Physical Exam: Revealed 75-year-old female sedated intubated and mechanically ventilated. Head: Atraumatic, normocephalic. Endotracheal tube and orogastric tube are intact. HEENT:[Neck is supple.] [No neck masses.] [No thyromegaly.] [No JVD.] Dry mucous membranes. PERRLA, EOMI, nonicteric, relatively dry mucous membranes. Chest: [Symmetrical chest expansion, crackles at the bases no rhonchi and no wheezes. Cardiac Exam: [Irregular irregular rhythm. Normal S1 and S2, no S3 gallop, 2/6 systolic murmur thought the precordium. Abdomen: [Soft, nontender, no megaly, no rebound, no guarding, normal bowel sounds.] Extremities: [No clubbing, 2+ bipedal edema, no cyanosis.]Distal pulses bilaterally throughout. Neurological Exam: Not assessed, patient is sedated with propofol. Psychiatric: Could not assess. Skin: Multiple areas of bruises, no rashes. - Labs CBC & Chem 7: 10/26/20 05:50 10/26/20 05:50 Labs: Abnormal Lab Results - Last 24 Hours (Table) 10/25/20 10/25/20 10/25/20 Range/Units 17:46 18:03 22:50 RBC (3.80-5.40) m/uL RDW (11.5-15.5) % Plt Count (150-450) k/uL Lymphocytes # (Manual) (1.0-4.8) k/uL Metamyelocytes # (Man) (0) k/uL Myelocytes # (Manual) (0) k/uL APTT 60.4 H (22.0-30.0) sec ABG pCO2 (35-45) mmHg ABG pO2 (83-108) mmHg ABG O2 Saturation (94-97) % Sodium (137-145) mmol/L Chloride (98-107) mmol/L Carbon Dioxide (22-30) mmol/L BUN (7-17) mg/dL Creatinine (0.52-1.04) mg/dL Glucose (74-99) mg/dL POC Glucose (mg/dL) 142 H 147 H (75-99) mg/dL Calcium (8.4-10.2) mg/dL Total Bilirubin (0.2-1.3) mg/dL AST (14-36) U/L Alkaline Phosphatase (38-126) U/L Total Protein (6.3-8.2) g/dL Albumin (3.5-5.0) g/dL 10/26/20 10/26/20 10/26/20 Range/Units 05:30 05:50 05:50 RBC 3.70 L (3.80-5.40) m/uL RDW 15.8 H (11.5-15.5) % Plt Count 98 L (150-450) k/uL Lymphocytes # (Manual) 0.75 L (1.0-4.8) k/uL Metamyelocytes # (Man) 0.25 H (0) k/uL Myelocytes # (Manual) 0.08 H (0) k/uL APTT 56.1 H (22.0-30.0) sec ABG pCO2 32 L (35-45) mmHg ABG pO2 145 H (83-108) mmHg ABG O2 Saturation 98.9 H (94-97) % Sodium (137-145) mmol/L Chloride (98-107) mmol/L Carbon Dioxide (22-30) mmol/L BUN (7-17) mg/dL Creatinine (0.52-1.04) mg/dL Glucose (74-99) mg/dL POC Glucose (mg/dL) (75-99) mg/dL Calcium (8.4-10.2) mg/dL Total Bilirubin (0.2-1.3) mg/dL AST (14-36) U/L Alkaline Phosphatase (38-126) U/L Total Protein (6.3-8.2) g/dL Albumin (3.5-5.0) g/dL 10/26/20 10/26/20 10/26/20 Range/Units 05:50 06:04 11:53 RBC (3.80-5.40) m/uL RDW (11.5-15.5) % Plt Count (150-450) k/uL Lymphocytes # (Manual) (1.0-4.8) k/uL Metamyelocytes # (Man) (0) k/uL Myelocytes # (Manual) (0) k/uL APTT (22.0-30.0) sec ABG pCO2 (35-45) mmHg ABG pO2 (83-108) mmHg ABG O2 Saturation (94-97) % Sodium 146 H (137-145) mmol/L Chloride 116 H (98-107) mmol/L Carbon Dioxide 20 L (22-30) mmol/L BUN 56 H (7-17) mg/dL Creatinine 1.37 H (0.52-1.04) mg/dL Glucose 186 H (74-99) mg/dL POC Glucose (mg/dL) 212 H 214 H (75-99) mg/dL Calcium 7.5 L (8.4-10.2) mg/dL Total Bilirubin 1.7 H (0.2-1.3) mg/dL AST 86 H (14-36) U/L Alkaline Phosphatase 208 H (38-126) U/L Total Protein 5.2 L (6.3-8.2) g/dL Albumin 2.1 L (3.5-5.0) g/dL Microbiology - Last 24 Hours (Table) 10/20/20 10:00 Blood Culture - Final Blood No Growth after 144 hours 10/20/20 10:00 Blood Culture - Final Blood No Growth after 144 hours 10/25/20 06:49 Gram Stain - Preliminary Sputum Sputum Culture - Preliminary 10/20/20 04:00 Blood Culture - Final Blood No Growth after 144 hours 10/24/20 09:15 Urine Culture - Final Urine,Catheterized 10/24/20 09:11 Blood Culture Gram Stain - Preliminary Blood Blood Culture - Preliminary Staphylococcus aureus 10/19/20 10:00 Blood Culture - Final Blood No Growth after 144 hours 10/24/20 09:11 Blood Culture - Final Blood Assessment and Plan Assessment: Impression: Acute hypoxic respiratory failure secondary to sepsis and septic shock secondary to MSSA bacteremia exact source is not clear, however if the patient continues to have positive blood cultures may have to be considered for CRISTIANO, and we'll discuss this with cardiology. Her transthoracic echo failed to show any vegetations on the valves. Septic shock on presentation. Associated with hypotension although the possibility of cardiogenic shock is not entirely ruled out considering the patient has a very poor ejection fraction of 20-25%. Coronary artery disease and previous CABG. Possible non-ST elevation myocardial infarction on presentation with elevated troponin levels. Paroxysmal atrial fibrillation. History of non-small cell lung cancer stage IIIB status post chemoradiation therapy. Last PET scan was in August of 2020. Bilateral pleural effusions secondary to systolic congestive heart failure, acute on chronic. Acute shock liver, improving. Acute kidney injury secondary to acute tubular necrosis and possible cardiorenal syndrome on her initial presentation. Improved with fluid resuscitation. Acute on chronic congestive heart failure secondary to ischemic cardiomyopathy and LV dysfunction with ejection fraction of 20-25%. Thrombocytopenia, exact etiology is not clear, improving could very well be related to sepsis. Recommendation: Continue ventilatory support. Cut down her IV fluid to 50 mL per hour. Continue antibiotics as per infectious disease on the case. Patient is now on combination of cefepime and vancomycin. Repeat blood cultures. Continue GI and DVT prophylaxis. Nutritional support, enteral feeding. Continue to monitor platelets while patient is on heparin. Keep warfarin on hold at present. Hemodynamic support if necessary. Monitor daily electrolytes and renal profile Monitor daily x-rays of the chest and daily ABGs. Continue insulin as per protocol. We'll continue to follow in the ICU. Patient is critically ill, critical care time is over 30 minutes. Time with Patient: Greater than 30
--- NOTE | 2020-10-26 16:08 | PCN ---
PROCEDURE NOTE PROCEDURE PERFORMED: Placement of a left brachial arterial line. PREOPERATIVE DIAGNOSIS: Acute hypoxic respiratory failure. POSTOPERATIVE DIAGNOSIS: Acute hypoxic respiratory failure. ANESTHESIA: None deployed. PROCEDURE: The left brachial region was prepared in a sterile fashion. Drapes were applied. The left brachial artery was not palpable, however, we could localize the brachial artery by Doppler. The area was prepared in a sterile fashion, and the area where the brachial artery was localized by the Doppler was examined again, and I was able to cannulate the left brachial artery with Doppler guidance. After cannulating the brachial artery, a guidewire was placed. A Cook catheter was inserted over the guidewire, and the guidewire was removed. Good blood flow and good waveform was noted, no evidence of any complications, line was secured using 3.0 silk sutures. MMODL / IJN: [id number] /
[2020-10-26 17:40] LABS: Glucose,Whole Blood 199 mg/dL (75-99)
--- NOTE | 2020-10-26 20:46 | PN ---
PROGRESS NOTE DATE OF SERVICE: 10/26/2020 REASON FOR FOLLOWUP: MSSA bacteremia pneumonia and a question of possible endovascular source. INTERVAL HISTORY: Patient is afebrile. The patient remains to be intubated on the vent. The patient is hemodynamically stable. No significant purulent secretions through the ET tube or any diarrhea reported by nursing staff. PHYSICAL EXAMINATION: Blood pressure is 115/51 with a pulse of 69, temperature is 97.8. She is 98% on 40% FiO2. General description is an elderly female lying in bed in no distress. Respiratory system: Unlabored breathing, decreased intensity of breath sounds. No wheeze. HEART: S1, S2. Regular rate and rhythm. ABDOMEN: Soft, no tenderness. LABS: Hemoglobin is 11.1, white count 8.3, BUN of 56, creatinine 1.37. Blood culture repeat is also showing MSSA. DIAGNOSTIC IMPRESSION AND PLAN: Patient with MSSA bacteremia with concern for pneumonia with recurrent or persistence of the bacteremia is concern for possible endovascular source. The patient did have an echocardiogram which did shows a low EF and valvular abnormality. She may benefit from a CRISTIANO. This was discussed with Cardiology. If the culture remains negative for any other pathogen, antibiotic will be switched back to cefazolin and will monitor clinical course closely. MMODL / IJN: [id number] /
[2020-10-26 23:33] LABS: Glucose,Whole Blood 286 mg/dL (75-99)
[2020-10-27 05:20] LABS: Anisocytosis Slight; HCT 33.2 % (34.0-46.0); HGB 10.7 gm/dL (11.4-16.0); Hypochromasia Slight; MCH 31.9 pg (25.0-35.0); MCHC 32.3 g/dL (31.0-37.0); MCV 98.5 fL (80.0-100.0); Macrocytosis Slight; Mean Platelet Volume 10.8; Platelet Count 78 k/uL (150-450); RBC 3.37 m/uL (3.80-5.40); WBC 8.6 k/uL (3.8-10.6)
[2020-10-27 05:42] LABS: Calcium 7.8 mg/dL (8.4-10.2); Potassium 3.7 mmol/L (3.5-5.1)
[2020-10-27 06:06] LABS: Glucose,Whole Blood 282 mg/dL (75-99)
[2020-10-27 06:26] LABS: ABG Base Excess -2.2 mmol/L; ABG HCO3 22 mmol/L (21-25); ABG Oxygen Saturation 97.5 % (94-97); ABG PCO2 33 mmHg (35-45); ABG PH 7.43 (7.35-7.45); ABG PO2 100 mmHg (83-108); ABG TCO2 23 mmol/L (19-24); Allen Test Performed? Yes
[2020-10-27] MEDS: LEVOTHYROXINE 88 MCG TAB PO SCH (06:31)
[2020-10-27] MEDS: INSULIN ASPART (NovoLOG) 100 UNIT/ML VIAL SQ SCH ×3 (06:31→18:19)
[2020-10-27] MEDS: NOREPINEPHRINE 8 MG in SODIUM CHLORIDE 0.9% 250 ML IV SCH ×4 (06:32→23:16)
[2020-10-27] MEDS ORDERED: POTASSIUM BICARBONATE/CIT AC 20 MEQ TABLET.EFF NG-TUBE SCH (07:00)
[2020-10-27] MEDS: SODIUM CHLORIDE 0.9% 1,000 ML IV SCH (07:52)
[2020-10-27] MEDS: PANTOPRAZOLE 40 MG/10 ML VIAL IVP SCH (08:00)
[2020-10-27] MEDS: CEFEPIME 2 GM in SODIUM CHLORIDE 0.9% 100 ML IVPB SCH (08:01)
[2020-10-27] MEDS: CHLORHEXIDINE GLUCONATE 15 ML CUP MUCOUS MEM SCH ×2 (08:01→21:16)
--- NOTE | 2020-10-27 08:41 | XR ---
EXAMINATION TYPE: XR chest 1V portable DATE OF EXAM: 10/27/2020 COMPARISON: 10/26/2020 HISTORY: Tube placement TECHNIQUE: Single frontal view of the chest is obtained. FINDINGS: Lines and tubes are unchanged. Bilateral pleural-parenchymal disease is unchanged. No significant change in the left paramediastinal mass. Postoperative changes overlie the cardiac silhouette. IMPRESSION: No significant change since the prior exam.
--- NOTE | 2020-10-27 09:23 | P.PN ---
Subjective Patient is seen in follow-up for acute kidney injury. Renal function slightly worse. Intubated. Receiving tube feeding. Remains on Levophed. No changes overnight. Vital signs: Stable. On vasopressor support. HEENT: Intubated. LUNGS: Breath sounds decreased. HEART: Regular rhythm. ABDOMEN: Soft, obese. EXTREMITITES: 1+ edema. Objective - Vital Signs Vital signs: Vital Signs Temp 97.7 F 10/27/20 08:00 Pulse 78 10/27/20 09:00 Resp 20 10/27/20 09:00 BP 105/37 10/26/20 19:00 Pulse Ox 96 10/27/20 09:00 Intake & Output 10/26/20 10/27/20 10/27/20 18:59 06:59 18:59 Intake Total 2727.560 2453.389 717.058 Output Total 500 310 75 Balance 2227.560 2143.389 642.058 Weight 113 kg 112.8 kg Intake: IV 1363 692 268 0.9 pressure bag 63 72 18 Cefepime 2 gm In Sodium 100 100 100 Chloride 0.9% 100 ml @ 25 mls/hr IVPB Q12HR [facility] Rx #:[id number] Sodium Chloride 0.9% 1, 700 520 150 000 ml @ 50 mls/hr IV . Q20H [facility] Rx#:[id number] Vancomycin 1,750 mg In 500 Sodium Chloride 0.9% 500 ml 500 ml @ 167 mls/hr IVPB Q24H [facility] Rx#: [id number] Intake, IV Titration 564.560 661.389 73.058 Amount Heparin Sod,Pork in 0.45% 250 NaCl 25,000 unit In 0.45 % NaCl 1 250ml.bag @ 9.22 UNITS/KG/HR 10.004 mls/ hr IV .Q24H [facility] Rx#: [id number] Norepinephrine 8 mg In 297.772 211.389 52.040 Sodium Chloride 0.9% 250 ml @ 0.2 MCG/KG/MIN 43. 731 mls/hr IV .Q5H54M [facility] Rx#:[id number] propofoL 1,000 mg In 266.788 200 21.018 Empty Bag 1 bag @ Titrate IV .Q0M [facility] Rx#: [id number] Tube Feeding 370 500 176 Other 430 600 200 Output: Urine 500 310 75 Other: Voiding Method Indwelling Catheter Indwelling Catheter Indwelling Catheter ABP, PAP, CO, CI - Last Documented Arterial Blood Pressure 103/53 - Labs CBC & Chem 7: 10/27/20 04:40 10/27/20 04:40 Labs: Abnormal Lab Results - Last 24 Hours (Table) 10/26/20 10/26/20 10/26/20 Range/Units 05:50 11:53 17:38 RBC (3.80-5.40) m/uL Hgb (11.4-16.0) gm/dL Hct (34.0-46.0) % RDW (11.5-15.5) % Plt Count (150-450) k/uL Lymphocytes # (Manual) 0.75 L (1.0-4.8) k/uL Metamyelocytes # (Man) 0.25 H (0) k/uL Myelocytes # (Manual) 0.08 H (0) k/uL APTT (22.0-30.0) sec ABG pCO2 (35-45) mmHg ABG O2 Saturation (94-97) % Sodium (137-145) mmol/L Chloride (98-107) mmol/L BUN (7-17) mg/dL Creatinine (0.52-1.04) mg/dL Glucose (74-99) mg/dL POC Glucose (mg/dL) 214 H 199 H (75-99) mg/dL Calcium (8.4-10.2) mg/dL 10/26/20 10/27/20 10/27/20 Range/Units 23:31 04:40 04:40 RBC 3.37 L (3.80-5.40) m/uL Hgb 10.7 L (11.4-16.0) gm/dL Hct 33.2 L (34.0-46.0) % RDW 16.0 H (11.5-15.5) % Plt Count 78 L (150-450) k/uL Lymphocytes # (Manual) (1.0-4.8) k/uL Metamyelocytes # (Man) (0) k/uL Myelocytes # (Manual) (0) k/uL APTT 53.9 H (22.0-30.0) sec ABG pCO2 (35-45) mmHg ABG O2 Saturation (94-97) % Sodium (137-145) mmol/L Chloride (98-107) mmol/L BUN (7-17) mg/dL Creatinine (0.52-1.04) mg/dL Glucose (74-99) mg/dL POC Glucose (mg/dL) 286 H (75-99) mg/dL Calcium (8.4-10.2) mg/dL 10/27/20 10/27/20 10/27/20 Range/Units 04:40 05:22 06:05 RBC (3.80-5.40) m/uL Hgb (11.4-16.0) gm/dL Hct (34.0-46.0) % RDW (11.5-15.5) % Plt Count (150-450) k/uL Lymphocytes # (Manual) (1.0-4.8) k/uL Metamyelocytes # (Man) (0) k/uL Myelocytes # (Manual) (0) k/uL APTT (22.0-30.0) sec ABG pCO2 33 L (35-45) mmHg ABG O2 Saturation 97.5 H (94-97) % Sodium 146 H (137-145) mmol/L Chloride 117 H (98-107) mmol/L BUN 57 H (7-17) mg/dL Creatinine 1.49 H (0.52-1.04) mg/dL Glucose 267 H (74-99) mg/dL POC Glucose (mg/dL) 282 H (75-99) mg/dL Calcium 7.8 L (8.4-10.2) mg/dL Microbiology - Last 24 Hours (Table) 10/25/20 06:49 Gram Stain - Final Sputum Sputum Culture - Final 10/25/20 17:46 Blood Culture - Preliminary Blood No Growth after 24 hours 10/24/20 09:11 Blood Culture Gram Stain - Preliminary Blood Blood Culture - Preliminary Staphylococcus aureus 10/20/20 10:00 Blood Culture - Final Blood No Growth after 144 hours 10/20/20 10:00 Blood Culture - Final Blood No Growth after 144 hours 10/20/20 04:00 Blood Culture - Final Blood No Growth after 144 hours Assessment and Plan Plan: Assessment: 1. Acute kidney injury secondary to ATN secondary to hypotension and sepsis. Creatinine slightly worse at 1.49 today. 2. MSSA bacteremia maintained on antibiotics. 3. Metabolic acidosis secondary to acute kidney injury, lactic acidosis. Partially also compensatory for respiratory alkalosis. Improved. 4. Acute hypoxic respiratory failure. 5. History of non-small cell lung cancer. 6. Chronic systolic CHF with ejection fraction of 20-25%. 7. Hypernatremia from lack of oral water intake. Plan: Maintain normal saline. Maintain tube feeding. Increase free water flushes to 300 mL every 4 hours. Wean FiO2 and vasopressors. Continue to monitor renal function and urine output.
[2020-10-27] MEDS: VANCOMYCIN 1,750 MG in SODIUM CHLORIDE 0.9% 500 ML 500 ML IVPB SCH (10:09)
--- NOTE | 2020-10-27 11:53 | P.PN ---
Subjective HISTORY OF PRESENTING ILLNESS This is a pleasant 75-year-old female past medical history significant for hypertension, coronary artery disease status post bypass grafting and high risk PCI of the left main and LAD, ischemic cardiomyopathy, chronic systolic heart failure, dyslipidemia, diabetes mellitus and paroxysmal atrial fibrillation. She follows in the office with Dr. Villarreal. We have been asked to see in consultation for elevated troponin. She presented to the hospital with generalized weakness and elevated blood sugar. She also was complaining of intermittently having a fever with associated body aches. She denies having any chest pain or shortness of breath. She has had no palpitations or dizziness. She was found to have positive blood cultures with gram-positive cocci. She is currently being treated with IV antibiotics awaiting infectious disease evaluation. Most recent echocardiogram obtained December 2019 revealed impaired LV systolic function with ejection fraction 40%, grade 3 diastolic dysfunction, severely dilated left atrium, moderate aortic regurgitation, mild mitral regurgitation, [id number] tricuspid regurgitation and mild pulmonary hypertension. Most recent cardiac catheterization performed in November 2019 she underwent orbital arthrectomy and stenting of the left main with Impella support at [facility]. 10/27/2020 Pt seen and examined. She remains intubated. Blood pressure 120/64 heart rate 93. Laboratory data reviewed, WBC 8.6, hemoglobin 10.7, platelets 78, pH 7.43, sodium 146, potassium 3.7, creatinine 1.49. Chest x-ray reveals bilateral pleural parenchymal disease that is unchanged from previous. She continues to require vasporessor support. PHYSICAL EXAMINATION CONSTITUTIONAL: No apparent distress. HEENT: Head is normocephalic. Pupils are equal, round. Sclerae anicteric. Mucous membranes of the mouth are moist. No JVD. Bilateral carotid bruit. CHEST EXAMINATION: Lungs are clear to auscultation. No chest wall tenderness is noted on palpation or with deep breathing. HEART EXAMINATION: Irregular rate and rhythm. S1, S2 heard. Systolic ejection murmur at the base, no gallops or rub. EXTREMITIES: 2+ peripheral pulses, bilateral upper and lower extremity non- pitting edema and no calf tenderness. ASSESSMENT Bacteremia, MSSA Sepsis with septic shock Acute kidney injury Lactic acidosis Troponin elevation secondary to renal function and sepsis not primary myocardial injury Coagulopathy Transaminitis Hypokalemia Hypomagnesemia Thrombocytopenia Coronary artery disease s/p bypass grafting and high risk left main PCI Chronic systolic and diastolic heart failure, clinically euvolemic Ischemic cardiomyopathy Hypertension Paroxysmal atrial fibrillation on warfarin, went into afib 10/19. Dyslipidemia History of lung cancer PLAN Continue current medical regimen. Platelets are starting to trend downward. Heparin infusion may need to be stopped if platelets get below 60. Nurse Practitioner note has been reviewed, I agree with a documented findings and plan of care. Patient was seen and examined. Objective - Vital Signs Vital signs: Vital Signs Temp 97.7 F 10/27/20 08:00 Pulse 78 10/27/20 09:00 Resp 20 10/27/20 09:00 BP 105/37 10/26/20 19:00 Pulse Ox 96 10/27/20 09:00 Intake & Output 10/26/20 10/27/20 10/27/20 18:59 06:59 18:59 Intake Total 2727.560 2453.389 717.058 Output Total 500 310 75 Balance 2227.560 2143.389 642.058 Weight 113 kg 112.8 kg Intake: IV 1363 692 268 0.9 pressure bag 63 72 18 Cefepime 2 gm In Sodium 100 100 100 Chloride 0.9% 100 ml @ 25 mls/hr IVPB Q12HR [facility] Rx #:[id number] Sodium Chloride 0.9% 1, 700 520 150 000 ml @ 50 mls/hr IV . Q20H [facility] Rx#:[id number] Vancomycin 1,750 mg In 500 Sodium Chloride 0.9% 500 ml 500 ml @ 167 mls/hr IVPB Q24H [facility] Rx#: [id number] Intake, IV Titration 564.560 661.389 73.058 Amount Heparin Sod,Pork in 0.45% 250 NaCl 25,000 unit In 0.45 % NaCl 1 250ml.bag @ 9.22 UNITS/KG/HR 10.004 mls/ hr IV .Q24H [facility] Rx#: [id number] Norepinephrine 8 mg In 297.772 211.389 52.040 Sodium Chloride 0.9% 250 ml @ 0.2 MCG/KG/MIN 43. 731 mls/hr IV .Q5H54M [facility] Rx#:[id number] propofoL 1,000 mg In 266.788 200 21.018 Empty Bag 1 bag @ Titrate IV .Q0M [facility] Rx#: [id number] Tube Feeding 370 500 176 Other 430 600 200 Output: Urine 500 310 75 Other: Voiding Method Indwelling Catheter Indwelling Catheter Indwelling Catheter ABP, PAP, CO, CI - Last Documented Arterial Blood Pressure 103/53 - Labs CBC & Chem 7: 10/27/20 04:40 10/27/20 04:40 Labs: Abnormal Lab Results - Last 24 Hours (Table) 10/26/20 10/26/20 10/26/20 Range/Units 05:50 11:53 17:38 RBC (3.80-5.40) m/uL Hgb (11.4-16.0) gm/dL Hct (34.0-46.0) % RDW (11.5-15.5) % Plt Count (150-450) k/uL Lymphocytes # (Manual) 0.75 L (1.0-4.8) k/uL Metamyelocytes # (Man) 0.25 H (0) k/uL Myelocytes # (Manual) 0.08 H (0) k/uL APTT (22.0-30.0) sec ABG pCO2 (35-45) mmHg ABG O2 Saturation (94-97) % Sodium (137-145) mmol/L Chloride (98-107) mmol/L BUN (7-17) mg/dL Creatinine (0.52-1.04) mg/dL Glucose (74-99) mg/dL POC Glucose (mg/dL) 214 H 199 H (75-99) mg/dL Calcium (8.4-10.2) mg/dL 10/26/20 10/27/20 10/27/20 Range/Units 23:31 04:40 04:40 RBC 3.37 L (3.80-5.40) m/uL Hgb 10.7 L (11.4-16.0) gm/dL Hct 33.2 L (34.0-46.0) % RDW 16.0 H (11.5-15.5) % Plt Count 78 L (150-450) k/uL Lymphocytes # (Manual) (1.0-4.8) k/uL Metamyelocytes # (Man) (0) k/uL Myelocytes # (Manual) (0) k/uL APTT 53.9 H (22.0-30.0) sec ABG pCO2 (35-45) mmHg ABG O2 Saturation (94-97) % Sodium (137-145) mmol/L Chloride (98-107) mmol/L BUN (7-17) mg/dL Creatinine (0.52-1.04) mg/dL Glucose (74-99) mg/dL POC Glucose (mg/dL) 286 H (75-99) mg/dL Calcium (8.4-10.2) mg/dL 10/27/20 10/27/20 10/27/20 Range/Units 04:40 05:22 06:05 RBC (3.80-5.40) m/uL Hgb (11.4-16.0) gm/dL Hct (34.0-46.0) % RDW (11.5-15.5) % Plt Count (150-450) k/uL Lymphocytes # (Manual) (1.0-4.8) k/uL Metamyelocytes # (Man) (0) k/uL Myelocytes # (Manual) (0) k/uL APTT (22.0-30.0) sec ABG pCO2 33 L (35-45) mmHg ABG O2 Saturation 97.5 H (94-97) % Sodium 146 H (137-145) mmol/L Chloride 117 H (98-107) mmol/L BUN 57 H (7-17) mg/dL Creatinine 1.49 H (0.52-1.04) mg/dL Glucose 267 H (74-99) mg/dL POC Glucose (mg/dL) 282 H (75-99) mg/dL Calcium 7.8 L (8.4-10.2) mg/dL Microbiology - Last 24 Hours (Table) 10/25/20 06:49 Gram Stain - Final Sputum Sputum Culture - Final 10/25/20 17:46 Blood Culture - Preliminary Blood No Growth after 24 hours 10/24/20 09:11 Blood Culture Gram Stain - Preliminary Blood Blood Culture - Preliminary Staphylococcus aureus 10/20/20 10:00 Blood Culture - Final Blood No Growth after 144 hours 10/20/20 10:00 Blood Culture - Final Blood No Growth after 144 hours 10/20/20 04:00 Blood Culture - Final Blood No Growth after 144 hours
[2020-10-27 12:24] LABS: Glucose,Whole Blood 236 mg/dL (75-99)
--- NOTE | 2020-10-27 12:25 | P.PN ---
Subjective Progress Note Date: 10/27/20 Principal diagnosis: Acute hypoxic respiratory failure secondary to Septic shock secondary to MSSA sepsis and bacteremia. 10/25/2020, the patient is intubated again.I had to intubate the patient again because of hemodynamic instability, hypotension, metabolic acidosis, and altered mentation. As stated earlier, recurrent bouts of sepsis was suspected as the patient was becoming hypotensive, tachycardic and she has also developed worsening and leukocytosis. For that reason, the patient was given IV fluids and she was aggressively resuscitated IV fluids received a total of 60-70 fluids yesterday and the net fluid balance is +9.5 L over the past 24 hours. Also, the patient was broadened in terms of her antibiotic coverage and she was placed on a combination of cefepime and vancomycin. Repeat cultures are still pending for now. Pro-calcitonin is still downtrending and is down to 3.19. Note that the lactic acid came as high as 7.9 and currently down to 2.5. This morning, the patient is intubated on a mechanical ventilator. the patient is well sedated with propofol which is running at 50 mics per kilogram per minute. The patient At this point in time she is an assist-control mode at the rate of 26 with a tidal volume of 500 and FiO2 of 50% with a PEEP of 5. Blood gases from today showed a pH of 7.51 with a pCO2 of 24 and pO2 182. the patient is quite hyp otensive still. Pressor requirements has fluctuated throughout the day yesterday. Note that she has advanced cardiomyopathy with ejection fraction of 20-25%. Currently, norepinephrine has been weaned down to 0.2 mcg/kg per minute.Chest x-ray showing some slight increase in the left-sided pleural effusion. Is also left suprahilar opacity consistent with previous history of non-small cell lung cancer. White cell count peaked at 20.9 and it dropped down to 13.9. She remains in atrial fibrillation. Heart is less tachycardic. Noted the patient also developed an acute kidney injury. Creatinine was as high as 1.5 along with lactic acidosis. The patient was given bicarb infusion and the creatinine today is at 1.46. Lactic acid level is improving. Urine output is fluctuating,, currently she is producing somewhere between 5-30 mL an hour of urine output. She remains on IV heparin. Platelet counts have been stable, and the patient is also On IV heparin.I'm seeing this patient along with various consultants from cardiology, nephrology and infectious disease. Patient was reevaluated today on 10/26/2020, patient was reintubated on the although she was extubated on the , and remains on mechanical ventilation again since the . She is presently on assist control rate of 26 tidal volume is 400 FiO2 is 40% PEEP of 5. ABG showed a pO2 of 145 and I was on 50% pCO2 of 32 pH of 7.43 hence the FiO2 was decreased down to 40%. Patient is on multiple drips including propofol and 50 but granted per kilo per minute, she is also on heparin and IV fluid at 0.9 mL 100 mL per hour. Current down to 50 mL per hour. Blood cultures have been positive intermittently for MSSA patient remains on cefepime and on vancomycin. Looking back at the chart patient was intubated initially on 10/19 extubated on 10/22 reintubated on 10/24. Her last echocardiogram showed poor LV function with ejection fraction of 20-25% at best. Patient is receiving tube feeding/Glucerna at 40 ML's per hour. She is not requiring any norepinephrine at this point. Blood pressure seems to be relatively stable, patient is in atrial fibrillation with controlled rate of 80. Looking back at the chart she had initial presentation of sepsis and mild DKA. Labs today showed relatively normal CBC with WBC count of 8.3 hemoglobin 11.8. PTT is 56. Platelets are 98,000. Sodium is 146 potassium 3.9 chloride 116 bicarb is 20 BUN is 56 creatinine 1.37. Last blood culture from the was positive, and the one from the is negative so far. Left paramediastinal mass remains about the same. Patient was reevaluated today on 10/27/2020, patient remains in the ICU, intubated and mechanically ventilated. 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 Patient remains sedated, she is on propofol at 30 mcg/kg/m, she is requiring norepinephrine at 0.09 and we increased it to 0.1 mcg/kg/m, held her propofol and we were trying to assess her mental status. Her assist-control rate is 26, volume 400 FiO2 40% PEEP of 5 her peak airway pressure is 29 plateau pressure is 21 patient is on IV fluid at 20 mL per hour, she is also on heparin. Her most recent blood cultures are negative so far. Patient is in atrial fibrillation with controlled rate. She is being treated for MSSA bacteremia. Remains on an tibiotics in the form of vancomycin and cefepime. Today the patient was awakened but did not seem to do well with a trial of weaning trying to pressure support of 14 and CPAP. Continue to have very shallow reading and mentally was not appropriate enough to proceed with further weaning trials. Hence placed back on assist control mode of mechanical ventilation. Asked x-ray continues to show evidence of bilateral interstitial infiltrates/edema. WBC count is 8.6 hemoglobin is 10.7 PTT is 53.9 ABG showed a pO2 of 100 pCO2 of 33 pH of 7.43 electrolytes showed sodium 146 chloride is 117 bicarb 22 BUN 57 creatinine 1.49 Objective - Vital Signs Vital signs: Vital Signs Temp 97.7 F 10/27/20 08:00 Pulse 99 10/27/20 11:00 Resp 31 H 10/27/20 11:00 BP 105/37 10/26/20 19:00 Pulse Ox 99 10/27/20 11:00 Intake & Output 10/26/20 10/27/20 10/27/20 18:59 06:59 18:59 Intake Total 2727.560 2453.389 1480.688 Output Total 500 310 140 Balance 2227.560 2143.389 1340.688 Weight 113 kg 112.8 kg Intake: IV 1363 692 880 0.9 pressure bag 63 72 30 Cefepime 2 gm In Sodium 100 100 100 Chloride 0.9% 100 ml @ 25 mls/hr IVPB Q12HR [facility] Rx #:[id number] Sodium Chloride 0.9% 1, 700 520 250 000 ml @ 50 mls/hr IV . Q20H [facility] Rx#:[id number] Vancomycin 1,750 mg In 500 500 Sodium Chloride 0.9% 500 ml 500 ml @ 167 mls/hr IVPB Q24H [facility] Rx#: [id number] Intake, IV Titration 564.560 661.389 136.688 Amount Heparin Sod,Pork in 0.45% 250 NaCl 25,000 unit In 0.45 % NaCl 1 250ml.bag @ 9.22 UNITS/KG/HR 10.004 mls/ hr IV .Q24H [facility] Rx#: [id number] Norepinephrine 8 mg In 297.772 211.389 115.670 Sodium Chloride 0.9% 250 ml @ 0.2 MCG/KG/MIN 43. 731 mls/hr IV .Q5H54M [facility] Rx#:[id number] propofoL 1,000 mg In 266.788 200 21.018 Empty Bag 1 bag @ Titrate IV .Q0M [facility] Rx#: [id number] Tube Feeding 370 500 264 Other 430 600 200 Output: Urine 500 310 140 Other: Voiding Method Indwelling Catheter Indwelling Catheter Indwelling Catheter ABP, PAP, CO, CI - Last Documented Arterial Blood Pressure 113/57 - Exam Physical Exam: Revealed 75-year-old female sedated intubated and mechanically ventilated. Arousable after holding propofol, however not following in structions. Head: Atraumatic, normocephalic. Endotracheal tube and orogastric tube are intact. HEENT:[Neck is supple.] [No neck masses.] [No thyromegaly.] [No JVD.] PERRLA, EOMI, nonicteric, moist mucous membranes. Chest: [Symmetrical chest expansion, crackles at the bases no rhonchi and no wheezes. Cardiac Exam: [Irregular irregular rhythm. Normal S1 and S2, no S3 gallop, 2/6 systolic murmur thought the precordium. Abdomen: [Soft, nontender, no megaly, no rebound, no guarding, normal bowel sounds.] Extremities: [No clubbing, 2+ bipedal edema, no cyanosis.] Diminished distal pulses bilaterally Neurological Exam: Arousable off propofol, but does not follow instructions. Psychiatric: Could not assess. Skin: Multiple areas of bruises, persist - Labs CBC & Chem 7: 10/27/20 04:40 10/27/20 04:40 Labs: Abnormal Lab Results - Last 24 Hours (Table) 10/26/20 10/26/20 10/27/20 Range/Units 17:38 23:31 04:40 RBC 3.37 L (3.80-5.40) m/uL Hgb 10.7 L (11.4-16.0) gm/dL Hct 33.2 L (34.0-46.0) % RDW 16.0 H (11.5-15.5) % Plt Count 78 L (150-450) k/uL APTT (22.0-30.0) sec ABG pCO2 (35-45) mmHg ABG O2 Saturation (94-97) % Sodium (137-145) mmol/L Chloride (98-107) mmol/L BUN (7-17) mg/dL Creatinine (0.52-1.04) mg/dL Glucose (74-99) mg/dL POC Glucose (mg/dL) 199 H 286 H (75-99) mg/dL Calcium (8.4-10.2) mg/dL 10/27/20 10/27/20 10/27/20 Range/Units 04:40 04:40 05:22 RBC (3.80-5.40) m/uL Hgb (11.4-16.0) gm/dL Hct (34.0-46.0) % RDW (11.5-15.5) % Plt Count (150-450) k/uL APTT 53.9 H (22.0-30.0) sec ABG pCO2 33 L (35-45) mmHg ABG O2 Saturation 97.5 H (94-97) % Sodium 146 H (137-145) mmol/L Chloride 117 H (98-107) mmol/L BUN 57 H (7-17) mg/dL Creatinine 1.49 H (0.52-1.04) mg/dL Glucose 267 H (74-99) mg/dL POC Glucose (mg/dL) (75-99) mg/dL Calcium 7.8 L (8.4-10.2) mg/dL 10/27/20 Range/Units 06:05 RBC (3.80-5.40) m/uL Hgb (11.4-16.0) gm/dL Hct (34.0-46.0) % RDW (11.5-15.5) % Plt Count (150-450) k/uL APTT (22.0-30.0) sec ABG pCO2 (35-45) mmHg ABG O2 Saturation (94-97) % Sodium (137-145) mmol/L Chloride (98-107) mmol/L BUN (7-17) mg/dL Creatinine (0.52-1.04) mg/dL Glucose (74-99) mg/dL POC Glucose (mg/dL) 282 H (75-99) mg/dL Calcium (8.4-10.2) mg/dL Microbiology - Last 24 Hours (Table) 10/25/20 06:49 Gram Stain - Final Sputum Sputum Culture - Final 10/25/20 17:46 Blood Culture - Preliminary Blood No Growth after 24 hours 10/24/20 09:11 Blood Culture Gram Stain - Preliminary Blood Blood Culture - Preliminary Staphylococcus aureus 10/20/20 10:00 Blood Culture - Final Blood No Growth after 144 hours 10/20/20 10:00 Blood Culture - Final Blood No Growth after 144 hours Assessment and Plan Assessment: Impression: Acute hypoxic respiratory failure secondary to sepsis and septic shock secondary to MSSA bacteremia exact source is not clear, however if the patient continues to have positive blood cultures may have to be considered for CRISTIANO, Septic shock on presentation. Associated with hypotension although the possibility of cardiogenic shock is not entirely ruled out considering the parrish ent has a very poor ejection fraction of 20-25%. Coronary artery disease and previous CABG. Possible non-ST elevation myocardial infarction on presentation with elevated troponin levels. Paroxysmal atrial fibrillation. History of non-small cell lung cancer stage IIIB status post chemoradiation therapy. Last PET scan was in August of 2020. Left perihilar mass is noted on chest x-ray. Bilateral pleural effusions secondary to systolic congestive heart failure, acute on chronic. Acute shock liver, improving. Acute kidney injury secondary to acute tubular necrosis and possible cardiorenal syndrome on her initial presentation. Improved with fluid resuscitation. Acute on chronic congestive heart failure secondary to ischemic cardiomyopathy and LV dysfunction with ejection fraction of 20-25%. Thrombocytopenia, exact etiology is not clear, improving could very well be related to sepsis. Recommendation: Continue ventilatory support. Pressure support and CPAP trial failed Continue antibiotics as per infectious disease on the case. Patient is now on combination of cefepime and vancomycin. May have to be changed to cefazolin since the patient has MSSA. Repeat blood cultures. Negative so far. Continue GI and DVT prophylaxis. Nutritional support, enteral feeding. Continue to monitor platelets while patient is on heparin. Hemodynamic support if necessary. Patient is requiring small dose of norepinephrine today. Monitor daily electrolytes and renal profile Monitor daily x-rays of the chest and daily ABGs. Continue insulin as per protocol. We'll continue to follow in the ICU. Daily trials of weaning off sedation if possible. Patient is critically ill, critical care time is over 30 minutes. Time with Patient: Greater than 30
--- NOTE | 2020-10-27 13:21 | P.PN ---
Subjective Progress Note Date: 10/27/20 Patient is sedated and intubated. She still maintained on normal epinephrine with mean arterial pressure around 80 at the time I was rounding. Patient is on minimal vent settings. Objective - Vital Signs Vital signs: Vital Signs Temp 97.8 F 10/27/20 12:00 Pulse 98 10/27/20 12:00 Resp 28 H 10/27/20 12:00 BP 105/37 10/26/20 19:00 Pulse Ox 97 10/27/20 12:00 Intake & Output 10/26/20 10/27/20 10/27/20 18:59 06:59 18:59 Intake Total 2727.560 2453.389 1895.775 Output Total 500 310 170 Balance 2227.560 2143.389 1725.775 Weight 113 kg 112.8 kg Intake: IV 1363 692 936 0.9 pressure bag 63 72 36 Cefepime 2 gm In Sodium 100 100 100 Chloride 0.9% 100 ml @ 25 mls/hr IVPB Q12HR [facility] Rx #:[id number] Sodium Chloride 0.9% 1, 700 520 300 000 ml @ 50 mls/hr IV . Q20H [facility] Rx#:[id number] Vancomycin 1,750 mg In 500 500 Sodium Chloride 0.9% 500 ml 500 ml @ 167 mls/hr IVPB Q24H [facility] Rx#: [id number] Intake, IV Titration 564.560 661.389 151.775 Amount Heparin Sod,Pork in 0.45% 250 NaCl 25,000 unit In 0.45 % NaCl 1 250ml.bag @ 9.22 UNITS/KG/HR 10.004 mls/ hr IV .Q24H [facility] Rx#: [id number] Norepinephrine 8 mg In 297.772 211.389 130.757 Sodium Chloride 0.9% 250 ml @ 0.2 MCG/KG/MIN 43. 731 mls/hr IV .Q5H54M [facility] Rx#:[id number] propofoL 1,000 mg In 266.788 200 21.018 Empty Bag 1 bag @ Titrate IV .Q0M [facility] Rx#: [id number] Tube Feeding 370 500 308 Other 430 600 500 Output: Urine 500 310 170 Other: Voiding Method Indwelling Catheter Indwelling Catheter Indwelling Catheter ABP, PAP, CO, CI - Last Documented Arterial Blood Pressure 119/59 - Exam General: The patient is sedated and intubated Eye: there is normal conjunctiva bilaterally. Neck: The neck is supple, there is no JVD. Cardiovascular: Normal S1-S2, no S3-S4, no murmurs. Respiratory: Lungs clear to auscultation bilaterally Gastrointestinal: Abdomen is soft, nontender Musculoskeletal: There is no pedal edema. Skin: Skin is warm and dry - Labs CBC & Chem 7: 10/27/20 04:40 10/27/20 04:40 Labs: Abnormal Lab Results - Last 24 Hours (Table) 10/26/20 10/26/20 10/27/20 Range/Units 17:38 23:31 04:40 RBC 3.37 L (3.80-5.40) m/uL Hgb 10.7 L (11.4-16.0) gm/dL Hct 33.2 L (34.0-46.0) % RDW 16.0 H (11.5-15.5) % Plt Count 78 L (150-450) k/uL APTT (22.0-30.0) sec ABG pCO2 (35-45) mmHg ABG O2 Saturation (94-97) % Sodium (137-145) mmol/L Chloride (98-107) mmol/L BUN (7-17) mg/dL Creatinine (0.52-1.04) mg/dL Glucose (74-99) mg/dL POC Glucose (mg/dL) 199 H 286 H (75-99) mg/dL Calcium (8.4-10.2) mg/dL 10/27/20 10/27/20 10/27/20 Range/Units 04:40 04:40 05:22 RBC (3.80-5.40) m/uL Hgb (11.4-16.0) gm/dL Hct (34.0-46.0) % RDW (11.5-15.5) % Plt Count (150-450) k/uL APTT 53.9 H (22.0-30.0) sec ABG pCO2 33 L (35-45) mmHg ABG O2 Saturation 97.5 H (94-97) % Sodium 146 H (137-145) mmol/L Chloride 117 H (98-107) mmol/L BUN 57 H (7-17) mg/dL Creatinine 1.49 H (0.52-1.04) mg/dL Glucose 267 H (74-99) mg/dL POC Glucose (mg/dL) (75-99) mg/dL Calcium 7.8 L (8.4-10.2) mg/dL 10/27/20 10/27/20 Range/Units 06:05 12:22 RBC (3.80-5.40) m/uL Hgb (11.4-16.0) gm/dL Hct (34.0-46.0) % RDW (11.5-15.5) % Plt Count (150-450) k/uL APTT (22.0-30.0) sec ABG pCO2 (35-45) mmHg ABG O2 Saturation (94-97) % Sodium (137-145) mmol/L Chloride (98-107) mmol/L BUN (7-17) mg/dL Creatinine (0.52-1.04) mg/dL Glucose (74-99) mg/dL POC Glucose (mg/dL) 282 H 236 H (75-99) mg/dL Calcium (8.4-10.2) mg/dL Microbiology - Last 24 Hours (Table) 10/25/20 06:49 Gram Stain - Final Sputum Sputum Culture - Final 10/25/20 17:46 Blood Culture - Preliminary Blood No Growth after 24 hours 10/24/20 09:11 Blood Culture Gram Stain - Preliminary Blood Blood Culture - Preliminary Staphylococcus aureus 10/20/20 10:00 Blood Culture - Final Blood No Growth after 144 hours 10/20/20 10:00 Blood Culture - Final Blood No Growth after 144 hours Assessment and Plan Assessment: This is a 75-year-old female with past medical history significant for left lung cancer now in remission that presented to the emergency room with fevers. Patient was evaluated in the ER and admitted to the hospital for further management of her medical problems noted below. 1. Severe sepsis with septic shock, treated with aggressive IV fluid hydration and antibiotic. Required vasopressors till 10/22 then again on 10/24. Source of infection underlying pneumonia/bacteremia. Influenza, Covid-19, and C. diff screen negative 2. MSSA bacteremia, Repeat blood culture from 10/19 negative to date. given wor sening sepsis another set of blood culture was sent on 10/24 and is now positive for gram-positive cocci. Repeat blood cultures from 10/25 negative to date Started on on IV cefazolin then switched to vancomycin and cefepime. Infectious disease following closely. Echocardiogram with no intracardiac source. Computed tomography scan of the abdomen and pelvis with no source of infection 3. Severe sepsis with septic shock 4. Acute kidney injury, oliguric. hyperkalemia: Resolved. Avoid nephrotoxins. Nephrology consulted for further evaluation. 5. Acute respiratory failure requiring sedation and mechanical intubation successfully extubated and then reintubated on 10/24 5. Metabolic acidosis secondary to above 6. Liver shock with coagulopathy secondary to hypotension. Liver enzymes trending now 7. Troponin elevation, non-thrombotic troponin leak secondary to severe sepsis. Cardiology consulted for further evaluation. Echocardiogram showed EF of 20- 25% 8. Chronic atrial fibrillation on anticoagulation with Coumadin, supratherapeutic INR on presentation status post vitamin K. Currently on IV heparin will continue to monitor for thrombocytopenia 9. Chronic congestive heart failure, systolic. Lasix 40 mg daily ordered 10. History of lung cancer in remission 11. Worsening thrombocytopenia: Probably secondary to presentation with severe sepsis. IV heparin was discontinued. We will continue to monitor closely. Today, I reviewed her medication list and lab work results Cefepime will be discontinued as blood culture growing staph species Discuss with cardiology to consider CRISTIANO given persistent gram-positive bacteremia tube feeding per dietitian Overall prognosis guarded
[2020-10-27] MEDS: INSULIN DETEMIR (LEVEMIR) 100 UNIT/ML SYR SQ SCH (13:53)
[2020-10-27 18:16] LABS: Glucose,Whole Blood 177 mg/dL (75-99)
[2020-10-28 00:16] LABS: Glucose,Whole Blood 180 mg/dL (75-99)
[2020-10-28] MEDS: INSULIN ASPART (NovoLOG) 100 UNIT/ML VIAL SQ SCH ×4 (00:37→17:28)
[2020-10-28] MEDS: NOREPINEPHRINE 8 MG in SODIUM CHLORIDE 0.9% 250 ML IV SCH ×4 (02:00→19:56)
--- NOTE | 2020-10-28 04:22 | PN ---
PROGRESS NOTE DATE OF SERVICE: 10/27/2020 REASON FOR FOLLOWUP: MSSA bacteremia pneumonia and question of endovascular source. INTERVAL HISTORY: Patient is afebrile. The patient remains to be intubated on the vent. The patient is hemodynamically stable. FiO2 is currently stable. No significant purulent secretions through the ET or diarrhea per nursing staff. PHYSICAL EXAMINATION: Blood pressure 125/55, pulse of 73. Temperature 97.5. He is 99% on 40% FiO2. General description is an elderly female lying in bed in no distress. Respiratory system: Unlabored breathing with decreased intensity of breath sounds. No wheeze. Heart: S1, S2. Regular rate and rhythm. Abdomen: Soft, no tenderness. Extremities: Trace edema of the feet. LABS: Blood culture has been finalized with MSSA. Sputum has been negative. DIAGNOSTIC IMPRESSION AND PLAN: Patient with MSSA bacteremia. Initial concern for an endovascular source in this patient subsequently, worsening of respiratory status and re-intubation, possibly related to fluid overload with no evidence of any secondary infection. Antibiotic will be adjusted to cefazolin. May benefit from CRISTIANO and monitor clinical course closely. MMODL / IJN: [id number] /
[2020-10-28 04:36] LABS: Anisocytosis Slight; HCT 34.9 % (34.0-46.0); HGB 10.7 gm/dL (11.4-16.0); Hypochromasia Slight; MCH 30.5 pg (25.0-35.0); MCHC 30.7 g/dL (31.0-37.0); MCV 99.1 fL (80.0-100.0); Macrocytosis Slight; RBC 3.52 m/uL (3.80-5.40); RDW 16.6 % (11.5-15.5); WBC 6.6 k/uL (3.8-10.6)
[2020-10-28 04:44] LABS: Platelet Count 74 k/uL (150-450)
[2020-10-28 05:15] LABS: Calcium 8.3 mg/dL (8.4-10.2); Potassium 3.8 mmol/L (3.5-5.1)
[2020-10-28 06:18] LABS: ABG Base Excess -1.2 mmol/L; ABG HCO3 23 mmol/L (21-25); ABG Oxygen Saturation 98.8 % (94-97); ABG PCO2 33 mmHg (35-45); ABG PH 7.45 (7.35-7.45); ABG PO2 123 mmHg (83-108); ABG TCO2 24 mmol/L (19-24); Allen Test Performed? Yes
[2020-10-28 06:49] LABS: Glucose,Whole Blood 174 mg/dL (75-99)
[2020-10-28] MEDS: LEVOTHYROXINE 88 MCG TAB PO SCH (06:54)
[2020-10-28] MEDS: INSULIN DETEMIR (LEVEMIR) 100 UNIT/ML SYR SQ SCH (06:54)
[2020-10-28] MEDS ORDERED: POTASSIUM BICARBONATE/CIT AC 20 MEQ TABLET.EFF NG-TUBE SCH (07:00)
--- NOTE | 2020-10-28 07:29 | XR ---
EXAMINATION TYPE: XR chest 1V portable DATE OF EXAM: 10/28/2020 COMPARISON: 10/27/2020 HISTORY: Tube placement TECHNIQUE: Single frontal view of the chest is obtained. FINDINGS: Lines and tubes are unchanged. Please note, the enteric tube terminates likely within the stomach but the side port is in the region of the diaphragmatic hiatus. There is unchanged elevation of the left hemidiaphragm with bilateral pleural-parenchymal disease and patchy airspace disease bilaterally which is unchanged. Left paramediastinal mass is unchanged. Unch anged left apical opacity. IMPRESSION: No significant change since the prior exam.
[2020-10-28] MEDS ORDERED: FUROSEMIDE 10 MG/ML 4 ML VIAL IV STA (08:09)
[2020-10-28] MEDS: PANTOPRAZOLE 40 MG/10 ML VIAL IVP SCH (08:33)
[2020-10-28] MEDS: CHLORHEXIDINE GLUCONATE 15 ML CUP MUCOUS MEM SCH ×2 (08:34→21:19)
--- NOTE | 2020-10-28 08:37 | P.PN ---
Subjective Patient is seen in follow-up for acute kidney injury. Renal function stable. Intubated. Receiving tube feeding. Remains on Levophed. No changes overnight. Vital signs: Stable. On vasopressor support. HEENT: Intubated. LUNGS: Breath sounds decreased. HEART: Regular rhythm. ABDOMEN: Soft, obese. EXTREMITITES: 1+ edema. Objective - Vital Signs Vital signs: Vital Signs Temp 97.5 F L 10/28/20 04:00 Pulse 74 10/28/20 07:00 Resp 11 L 10/28/20 07:00 BP 105/37 10/26/20 19:00 Pulse Ox 95 10/28/20 07:00 Intake & Output 10/27/20 10/28/20 10/28/20 18:59 06:59 18:59 Intake Total 2931.573 2395.370 607.663 Output Total 390 310 75 Balance 2541.573 2085.370 532.663 Weight 125.1 kg Intake: IV 1272 712 112 0.9 pressure bag 72 72 12 Cefepime 2 gm In Sodium 100 Chloride 0.9% 100 ml @ 25 mls/hr IVPB Q12HR [facility] Rx #:[id number] Sodium Chloride 0.9% 1, 600 590 100 000 ml @ 50 mls/hr IV . Q20H [facility] Rx#:[id number] Vancomycin 1,750 mg In 500 Sodium Chloride 0.9% 500 ml 500 ml @ 167 mls/hr IVPB Q24H [facility] Rx#: [id number] ceFAZolin 2 gm In Sodium 50 Chloride 0.9% 50 ml @ 100 mls/hr IVPB Q8HR [facility] Rx# :[id number] Intake, IV Titration 243.573 211.370 107.663 Amount Norepinephrine 8 mg In 222.555 35.117 88.335 Sodium Chloride 0.9% 250 ml @ 0.2 MCG/KG/MIN 43. 731 mls/hr IV .Q5H54M [facility] Rx#:[id number] propofoL 1,000 mg In 21.018 176.253 19.328 Empty Bag 1 bag @ Titrate IV .Q0M [facility] Rx#: [id number] Tube Feeding 616 572 88 Other 800 900 300 Output: Urine 390 310 75 Other: Voiding Method Indwelling Catheter Indwelling Catheter Indwelling Catheter ABP, PAP, CO, CI - Last Documented Arterial Blood Pressure 149/63 - Labs CBC & Chem 7: 10/28/20 04:20 10/28/20 04:20 Labs: Abnormal Lab Results - Last 24 Hours (Table) 10/27/20 10/27/20 10/28/20 Range/Units 12:22 18:14 00:15 RBC (3.80-5.40) m/uL Hgb (11.4-16.0) gm/dL MCHC (31.0-37.0) g/dL RDW (11.5-15.5) % Plt Count (150-450) k/uL APTT (22.0-30.0) sec ABG pCO2 (35-45) mmHg ABG pO2 (83-108) mmHg ABG O2 Saturation (94-97) % Chloride (98-107) mmol/L Carbon Dioxide (22-30) mmol/L BUN (7-17) mg/dL Creatinine (0.52-1.04) mg/dL Glucose (74-99) mg/dL POC Glucose (mg/dL) 236 H 177 H 180 H (75-99) mg/dL Calcium (8.4-10.2) mg/dL 10/28/20 10/28/20 10/28/20 Range/Units 04:20 04:20 04:20 RBC 3.52 L (3.80-5.40) m/uL Hgb 10.7 L (11.4-16.0) gm/dL MCHC 30.7 L (31.0-37.0) g/dL RDW 16.6 H (11.5-15.5) % Plt Count 74 L (150-450) k/uL APTT 49.8 H (22.0-30.0) sec ABG pCO2 (35-45) mmHg ABG pO2 (83-108) mmHg ABG O2 Saturation (94-97) % Chloride 116 H (98-107) mmol/L Carbon Dioxide 21 L (22-30) mmol/L BUN 56 H (7-17) mg/dL Creatinine 1.47 H (0.52-1.04) mg/dL Glucose 207 H (74-99) mg/dL POC Glucose (mg/dL) (75-99) mg/dL Calcium 8.3 L (8.4-10.2) mg/dL 06/23/21 06/23/21 Range/Units 06:15 06:48 RBC (3.80-5.40) m/uL Hgb (11.4-16.0) gm/dL MCHC (31.0-37.0) g/dL RDW (11.5-15.5) % Plt Count (150-450) k/uL APTT (22.0-30.0) sec ABG pCO2 33 L (35-45) mmHg ABG pO2 123 H (83-108) mmHg ABG O2 Saturation 98.8 H (94-97) % Chloride (98-107) mmol/L Carbon Dioxide (22-30) mmol/L BUN (7-17) mg/dL Creatinine (0.52-1.04) mg/dL Glucose (74-99) mg/dL POC Glucose (mg/dL) 174 H (75-99) mg/dL Calcium (8.4-10.2) mg/dL Microbiology - Last 24 Hours (Table) 10/25/20 17:46 Blood Culture - Preliminary Blood No Growth after 48 hours 10/24/20 09:11 Blood Culture Gram Stain - Final Blood Blood Culture - Final Staphylococcus aureus 10/26/20 12:15 Blood Culture - Preliminary Blood No Growth after 24 hours 10/26/20 11:55 Blood Culture - Preliminary Blood No Growth after 24 hours 10/25/20 06:49 Gram Stain - Final Sputum Sputum Culture - Final Assessment and Plan Plan: Assessment: 1. Acute kidney injury secondary to ATN secondary to hypotension and sepsis. Renal function stable. Creatinine 1.47 today. 2. MSSA bacteremia maintained on antibiotics. 3. Metabolic acidosis secondary to acute kidney injury, lactic acidosis. Partially also compensatory for respiratory alkalosis. 4. Acute hypoxic respiratory failure. 5. History of non-small cell lung cancer. 6. Chronic systolic CHF with ejection fraction of 20-25%. 7. Hypernatremia from lack of oral water intake. better. Plan: Hep-Lock IV fluids. Lasix 40 mg IV once today. Maintain tube feeding. Maintain free water flushes at a rate of 300 mL every 4 hours. Wean FiO2 and vasopressors. Continue to monitor renal function and urine output.
[2020-10-28] MEDS ORDERED: VANCOMYCIN TROUGH DUE 1 EACH MISC MISCELLANE ONE (09:00)
--- NOTE | 2020-10-28 10:29 | P.PN ---
Subjective HISTORY OF PRESENTING ILLNESS This is a pleasant 75-year-old female past medical history significant for hypertension, coronary artery disease status post bypass grafting and high risk PCI of the left main and LAD, ischemic cardiomyopathy, chronic systolic heart failure, dyslipidemia, diabetes mellitus and paroxysmal atrial fibrillation. She follows in the office with Dr. Villarreal. We have been asked to see in consultation for elevated troponin. She presented to the hospital with generalized weakness and elevated blood sugar. She also was complaining of intermittently having a fever with associated body aches. She denies having any chest pain or shortness of breath. She has had no palpitations or dizziness. She was found to have positive blood cultures with gram-positive cocci. She is currently being treated with IV antibiotics awaiting infectious disease evaluation. Most recent echocardiogram obtained December 2019 revealed impaired LV systolic function with ejection fraction 40%, grade 3 diastolic dysfunction, severely dilated left atrium, moderate aortic regurgitation, mild mitral regurgitation, [id number] tricuspid regurgitation and mild pulmonary hypertension. Most recent cardiac catheterization performed in November 2019 she underwent orbital arthrectomy and stenting of the left main with Impella support at [facility]. 10/28/2020 Pt seen and examined resting comfortably in bed maintained on mechanical ventilation. ID is requesting CRISTIANO to rule out cardiac source of MSSA bacteremia. Blood pressure 112/52 heart rate 72 afebrile and maintaining oxygen saturation on ventilator. She continues to be on levophed for blood pressure support. Laboratory data reviewed, WBC 6.6, hemoglobin 10.7, platelets 74, pH 7.45, sodium 144, potassium 3.8, creatinine 1.47. Telemetry tracings reveal persistent atrial fibrillation with controlled ventricular rates. PHYSICAL EXAMINATION CONSTITUTIONAL: No apparent distress. HEENT: Head is normocephalic. Pupils are equal, round. Sclerae anicteric. Mucous membranes of the mouth are moist. No JVD. Bilateral carotid bruit. CHEST EXAMINATION: Lungs are clear to auscultation. No chest wall tenderness is noted on palpation or with deep breathing. HEART EXAMINATION: Irregular rate and rhythm. S1, S2 heard. Systolic ejection murmur at the base, no gallops or rub. EXTREMITIES: 2+ peripheral pulses, bilateral upper and lower extremity non- pitting edema and no calf tenderness. ASSESSMENT Bacteremia, MSSA Sepsis with septic shock Acute kidney injury Lactic acidosis Troponin elevation secondary to renal function and sepsis not primary myocardial injury Coagulopathy Transaminitis Hypokalemia Hypomagnesemia Thrombocytopenia Coronary artery disease s/p bypass grafting and high risk left main PCI Chronic systolic and diastolic heart failure, clinically euvolemic Ischemic cardiomyopathy Hypertension Paroxysmal atrial fibrillation on warfarin, went into afib 10/19. Dyslipidemia History of lung cancer PLAN CRISTIANO today at the bedside with Dr. Ramirez. Nurse Practitioner note has been reviewed, I agree with a documented findings and plan of care. Patient was seen and examined. Objective - Vital Signs Vital signs: Vital Signs Temp 97.5 F L 10/28/20 08:00 Pulse 72 10/28/20 10:00 Resp 22 10/28/20 10:00 BP 94/57 10/28/20 08:00 Pulse Ox 97 10/28/20 10:00 Intake & Output 10/27/20 10/28/20 10/28/20 18:59 06:59 18:59 Intake Total 2931.573 2395.370 757.663 Output Total 390 310 400 Balance 2541.573 2085.370 357.663 Weight 125.1 kg Intake: IV 1272 712 174 0.9 pressure bag 72 72 24 Cefepime 2 gm In Sodium 100 Chloride 0.9% 100 ml @ 25 mls/hr IVPB Q12HR [facility] Rx #:[id number] Sodium Chloride 0.9% 1, 600 590 100 000 ml @ 20 mls/hr IV . Q24H [facility] Rx#:[id number] Vancomycin 1,750 mg In 500 Sodium Chloride 0.9% 500 ml 500 ml @ 167 mls/hr IVPB Q24H [facility] Rx#: [id number] ceFAZolin 2 gm In Sodium 50 50 Chloride 0.9% 50 ml @ 100 mls/hr IVPB Q8HR [facility] Rx# :[id number] Intake, IV Titration 243.573 211.370 107.663 Amount Norepinephrine 8 mg In 222.555 35.117 88.335 Sodium Chloride 0.9% 250 ml @ 0.2 MCG/KG/MIN 43. 731 mls/hr IV .Q5H54M [facility] Rx#:[id number] propofoL 1,000 mg In 21.018 176.253 19.328 Empty Bag 1 bag @ Titrate IV .Q0M [facility] Rx#: [id number] Tube Feeding 616 572 176 Other 800 900 300 Output: Urine 390 310 400 Other: Voiding Method Indwelling Catheter Indwelling Catheter Indwelling Catheter ABP, PAP, CO, CI - Last Documented Arterial Blood Pressure 112/52 - Labs CBC & Chem 7: 10/28/20 04:20 10/28/20 04:20 Labs: Abnormal Lab Results - Last 24 Hours (Table) 10/27/20 10/27/20 10/28/20 Range/Units 12:22 18:14 00:15 RBC (3.80-5.40) m/uL Hgb (11.4-16.0) gm/dL MCHC (31.0-37.0) g/dL RDW (11.5-15.5) % Plt Count (150-450) k/uL APTT (22.0-30.0) sec ABG pCO2 (35-45) mmHg ABG pO2 (83-108) mmHg ABG O2 Saturation (94-97) % Chloride (98-107) mmol/L Carbon Dioxide (22-30) mmol/L BUN (7-17) mg/dL Creatinine (0.52-1.04) mg/dL Glucose (74-99) mg/dL POC Glucose (mg/dL) 236 H 177 H 180 H (75-99) mg/dL Calcium (8.4-10.2) mg/dL 10/28/20 10/28/20 10/28/20 Range/Units 04:20 04:20 04:20 RBC 3.52 L (3.80-5.40) m/uL Hgb 10.7 L (11.4-16.0) gm/dL MCHC 30.7 L (31.0-37.0) g/dL RDW 16.6 H (11.5-15.5) % Plt Count 74 L (150-450) k/uL APTT 49.8 H (22.0-30.0) sec ABG pCO2 (35-45) mmHg ABG pO2 (83-108) mmHg ABG O2 Saturation (94-97) % Chloride 116 H (98-107) mmol/L Carbon Dioxide 21 L (22-30) mmol/L BUN 56 H (7-17) mg/dL Creatinine 1.47 H (0.52-1.04) mg/dL Glucose 207 H (74-99) mg/dL POC Glucose (mg/dL) (75-99) mg/dL Calcium 8.3 L (8.4-10.2) mg/dL 10/28/20 10/28/20 Range/Units 06:15 06:48 RBC (3.80-5.40) m/uL Hgb (11.4-16.0) gm/dL MCHC (31.0-37.0) g/dL RDW (11.5-15.5) % Plt Count (150-450) k/uL APTT (22.0-30.0) sec ABG pCO2 33 L (35-45) mmHg ABG pO2 123 H (83-108) mmHg ABG O2 Saturation 98.8 H (94-97) % Chloride (98-107) mmol/L Carbon Dioxide (22-30) mmol/L BUN (7-17) mg/dL Creatinine (0.52-1.04) mg/dL Glucose (74-99) mg/dL POC Glucose (mg/dL) 174 H (75-99) mg/dL Calcium (8.4-10.2) mg/dL Microbiology - Last 24 Hours (Table) 10/25/20 17:46 Blood Culture - Preliminary Blood No Growth after 48 hours 10/24/20 09:11 Blood Culture Gram Stain - Final Blood Blood Culture - Final Staphylococcus aureus 10/26/20 12:15 Blood Culture - Preliminary Blood No Growth after 24 hours 10/26/20 11:55 Blood Culture - Preliminary Blood No Growth after 24 hours 10/25/20 06:49 Gram Stain - Final Sputum Sputum Culture - Final
--- NOTE | 2020-10-28 11:25 | P.PN ---
Subjective Progress Note Date: 10/28/20 Patient is still sedated and intubated. She was undergoing a CRISTIANO this morning. No acute events overnight reported by nursing staff. Objective - Vital Signs Vital signs: Vital Signs Temp 97.5 F L 10/28/20 08:00 Pulse 72 10/28/20 10:00 Resp 22 10/28/20 10:00 BP 94/57 10/28/20 08:00 Pulse Ox 97 10/28/20 10:00 Intake & Output 10/27/20 10/28/20 10/28/20 18:59 06:59 18:59 Intake Total 2931.573 2395.370 801.663 Output Total 390 310 400 Balance 2541.573 2085.370 401.663 Weight 125.1 kg Intake: IV 1272 712 174 0.9 pressure bag 72 72 24 Cefepime 2 gm In Sodium 100 Chloride 0.9% 100 ml @ 25 mls/hr IVPB Q12HR [facility] Rx #:[id number] Sodium Chloride 0.9% 1, 600 590 100 000 ml @ 20 mls/hr IV . Q24H [facility] Rx#:[id number] Vancomycin 1,750 mg In 500 Sodium Chloride 0.9% 500 ml 500 ml @ 167 mls/hr IVPB Q24H [facility] Rx#: [id number] ceFAZolin 2 gm In Sodium 50 50 Chloride 0.9% 50 ml @ 100 mls/hr IVPB Q8HR [facility] Rx# :[id number] Intake, IV Titration 243.573 211.370 107.663 Amount Norepinephrine 8 mg In 222.555 35.117 88.335 Sodium Chloride 0.9% 250 ml @ 0.2 MCG/KG/MIN 43. 731 mls/hr IV .Q5H54M [facility] Rx#:[id number] propofoL 1,000 mg In 21.018 176.253 19.328 Empty Bag 1 bag @ Titrate IV .Q0M [facility] Rx#: [id number] Tube Feeding 616 572 220 Other 800 900 300 Output: Urine 390 310 400 Other: Voiding Method Indwelling Catheter Indwelling Catheter Indwelling Catheter ABP, PAP, CO, CI - Last Documented Arterial Blood Pressure 112/52 - Exam General: The patient is sedated and intubated Eye: there is normal conjunctiva bilaterally. Neck: The neck is supple, there is no JVD. Cardiovascular: Normal S1-S2, no S3-S4, no murmurs. Respiratory: Lungs clear to auscultation bilaterally Gastrointestinal: Abdomen is soft, nontender Musculoskeletal: There is no pedal edema. Skin: Skin is warm and dry - Labs CBC & Chem 7: 10/28/20 04:20 10/28/20 04:20 Labs: Abnormal Lab Results - Last 24 Hours (Table) 10/27/20 10/27/20 10/28/20 Range/Units 12:22 18:14 00:15 RBC (3.80-5.40) m/uL Hgb (11.4-16.0) gm/dL MCHC (31.0-37.0) g/dL RDW (11.5-15.5) % Plt Count (150-450) k/uL APTT (22.0-30.0) sec ABG pCO2 (35-45) mmHg ABG pO2 (83-108) mmHg ABG O2 Saturation (94-97) % Chloride (98-107) mmol/L Carbon Dioxide (22-30) mmol/L BUN (7-17) mg/dL Creatinine (0.52-1.04) mg/dL Glucose (74-99) mg/dL POC Glucose (mg/dL) 236 H 177 H 180 H (75-99) mg/dL Calcium (8.4-10.2) mg/dL 10/28/20 10/28/20 10/28/20 Range/Units 04:20 04:20 04:20 RBC 3.52 L (3.80-5.40) m/uL Hgb 10.7 L (11.4-16.0) gm/dL MCHC 30.7 L (31.0-37.0) g/dL RDW 16.6 H (11.5-15.5) % Plt Count 74 L (150-450) k/uL APTT 49.8 H (22.0-30.0) sec ABG pCO2 (35-45) mmHg ABG pO2 (83-108) mmHg ABG O2 Saturation (94-97) % Chloride 116 H (98-107) mmol/L Carbon Dioxide 21 L (22-30) mmol/L BUN 56 H (7-17) mg/dL Creatinine 1.47 H (0.52-1.04) mg/dL Glucose 207 H (74-99) mg/dL POC Glucose (mg/dL) (75-99) mg/dL Calcium 8.3 L (8.4-10.2) mg/dL 10/28/20 10/28/20 Range/Units 06:15 06:48 RBC (3.80-5.40) m/uL Hgb (11.4-16.0) gm/dL MCHC (31.0-37.0) g/dL RDW (11.5-15.5) % Plt Count (150-450) k/uL APTT (22.0-30.0) sec ABG pCO2 33 L (35-45) mmHg ABG pO2 123 H (83-108) mmHg ABG O2 Saturation 98.8 H (94-97) % Chloride (98-107) mmol/L Carbon Dioxide (22-30) mmol/L BUN (7-17) mg/dL Creatinine (0.52-1.04) mg/dL Glucose (74-99) mg/dL POC Glucose (mg/dL) 174 H (75-99) mg/dL Calcium (8.4-10.2) mg/dL Microbiology - Last 24 Hours (Table) 10/25/20 17:46 Blood Culture - Preliminary Blood No Growth after 48 hours 10/24/20 09:11 Blood Culture Gram Stain - Final Blood Blood Culture - Final Staphylococcus aureus 10/26/20 12:15 Blood Culture - Preliminary Blood No Growth after 24 hours 10/26/20 11:55 Blood Culture - Preliminary Blood No Growth after 24 hours 10/25/20 06:49 Gram Stain - Final Sputum Sputum Culture - Final Assessment and Plan Assessment: This is a 75-year-old female with past medical history significant for left lung cancer now in remission that presented to the emergency room with fevers. Patient was evaluated in the ER and admitted to the hospital for further management of her medical problems noted below. 1. Severe sepsis with septic shock, treated with aggressive IV fluid hydration and antibiotic. Required vasopressors till 10/22 then again on 10/24. Source of infection underlying pneumonia/bacteremia. Influenza, Covid-19, and C. diff sc reen negative 2. MSSA bacteremia, blood culture cleared on 614 for a few days but turned back positive on 10/24. Patient has been on antibiotics since admission transitions from cefazolin to vancomycin and cefepime and now back to cefazolin. Blood culture on 10/25 negative to date 3. Severe sepsis with septic shock 4. Acute kidney injury, oliguric. hyperkalemia: Resolved. Avoid nephrotoxins. Nephrology consulted for further evaluation. 5. Acute respiratory failure requiring sedation and mechanical intubation successfully extubated and then reintubated on 10/24 5. Metabolic acidosis secondary to above 6. Liver shock with coagulopathy secondary to hypotension. Liver enzymes trend ing now 7. Troponin elevation, non-thrombotic troponin leak secondary to severe sepsis. Cardiology consulted for further evaluation. Echocardiogram showed EF of 20- 25% 8. Chronic atrial fibrillation on anticoagulation with Coumadin, supratherapeutic INR on presentation status post vitamin K. Currently on IV heparin will continue to monitor for thrombocytopenia 9. Chronic congestive heart failure, systolic. Lasix 40 mg daily ordered 10. History of lung cancer in remission 11. Worsening thrombocytopenia: Probably secondary to presentation with severe sepsis. IV heparin was discontinued. We will continue to monitor closely. Today, I reviewed her medication list and lab work results Awaiting CRISTIANO results Spontaneous breathing trials per ICU team tube feeding per dietitian Overall prognosis guarded
[2020-10-28 11:42] LABS: Glucose,Whole Blood 161 mg/dL (75-99)
--- NOTE | 2020-10-28 12:02 | P.PN ---
Subjective Progress Note Date: 10/28/20 Principal diagnosis: Acute hypoxic respiratory failure secondary to Septic shock secondary to MSSA sepsis and bacteremia. 10/25/2020, the patient is intubated again.I had to intubate the patient again because of hemodynamic instability, hypotension, metabolic acidosis, and altered mentation. As stated earlier, recurrent bouts of sepsis was suspected as the patient was becoming hypotensive, tachycardic and she has also developed worsening and leukocytosis. For that reason, the patient was given IV fluids and she was aggressively resuscitated IV fluids received a total of 60-70 fluids yesterday and the net fluid balance is +9.5 L over the past 24 hours. Also, the patient was broadened in terms of her antibiotic coverage and she was placed on a combination of cefepime and vancomycin. Repeat cultures are still pending for now. Pro-calcitonin is still downtrending and is down to 3.19. Note that the lactic acid came as high as 7.9 and currently down to 2.5. This morning, the patient is intubated on a mechanical ventilator. the patient is well sedated with propofol which is running at 50 mics per kilogram per minute. The patient At this point in time she is an assist-control mode at the rate of 26 with a tidal volume of 500 and FiO2 of 50% with a PEEP of 5. Blood gases from today showed a pH of 7.51 with a pCO2 of 24 and pO2 182. the patient is quite hyp otensive still. Pressor requirements has fluctuated throughout the day yesterday. Note that she has advanced cardiomyopathy with ejection fraction of 20-25%. Currently, norepinephrine has been weaned down to 0.2 mcg/kg per minute.Chest x-ray showing some slight increase in the left-sided pleural effusion. Is also left suprahilar opacity consistent with previous history of non-small cell lung cancer. White cell count peaked at 20.9 and it dropped down to 13.9. She remains in atrial fibrillation. Heart is less tachycardic. Noted the patient also developed an acute kidney injury. Creatinine was as high as 1.5 along with lactic acidosis. The patient was given bicarb infusion and the creatinine today is at 1.46. Lactic acid level is improving. Urine output is fluctuating,, currently she is producing somewhere between 5-30 mL an hour of urine output. She remains on IV heparin. Platelet counts have been stable, and the patient is also On IV heparin.I'm seeing this patient along with various consultants from cardiology, nephrology and infectious disease. Patient was reevaluated today on 10/26/2020, patient was reintubated on the although she was extubated on the , and remains on mechanical ventilation again since the . She is presently on assist control rate of 26 tidal volume is 400 FiO2 is 40% PEEP of 5. ABG showed a pO2 of 145 and I was on 50% pCO2 of 32 pH of 7.43 hence the FiO2 was decreased down to 40%. Patient is on multiple drips including propofol and 50 but granted per kilo per minute, she is also on heparin and IV fluid at 0.9 mL 100 mL per hour. Current down to 50 mL per hour. Blood cultures have been positive intermittently for MSSA patient remains on cefepime and on vancomycin. Looking back at the chart patient was intubated initially on 10/19 extubated on 10/22 reintubated on 10/24. Her last echocardiogram showed poor LV function with ejection fraction of 20-25% at best. Patient is receiving tube feeding/Glucerna at 40 ML's per hour. She is not requiring any norepinephrine at this point. Blood pressure seems to be relatively stable, patient is in atrial fibrillation with controlled rate of 80. Looking back at the chart she had initial presentation of sepsis and mild DKA. Labs today showed relatively normal CBC with WBC count of 8.3 hemoglobin 11.8. PTT is 56. Platelets are 98,000. Sodium is 146 potassium 3.9 chloride 116 bicarb is 20 BUN is 56 creatinine 1.37. Last blood culture from the was positive, and the one from the is negative so far. Left paramediastinal mass remains about the same. Patient was reevaluated today on 10/27/2020, patient remains in the ICU, intubated and mechanically ventilated. 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 Patient remains sedated, she is on propofol at 30 mcg/kg/m, she is requiring norepinephrine at 0.09 and we increased it to 0.1 mcg/kg/m, held her propofol and we were trying to assess her mental status. Her assist-control rate is 26, volume 400 FiO2 40% PEEP of 5 her peak airway pressure is 29 plateau pressure is 21 patient is on IV fluid at 20 mL per hour, she is also on heparin. Her most recent blood cultures are negative so far. Patient is in atrial fibrillation with controlled rate. She is being treated for MSSA bacteremia. Remains on an tibiotics in the form of vancomycin and cefepime. Today the patient was awakened but did not seem to do well with a trial of weaning trying to pressure support of 14 and CPAP. Continue to have very shallow reading and mentally was not appropriate enough to proceed with further weaning trials. Hence placed back on assist control mode of mechanical ventilation. Asked x-ray continues to show evidence of bilateral interstitial infiltrates/edema. WBC count is 8.6 hemoglobin is 10.7 PTT is 53.9 ABG showed a pO2 of 100 pCO2 of 33 pH of 7.43 electrolytes showed sodium 146 chloride is 117 bicarb 22 BUN 57 creatinine 1.49 Reevaluated today on 10/28/20, remains intubated and mechanically ventilated. Patient is on assist control rate of 26 tidal volume 400 FiO2 30% PEEP of 5. EEG showed a pO2 of 123 pCO2 33 pH of 7.45. Remains on propofol at 10 mcg/kg/m and on norepinephrine at 0.08 mcg/kg/m. Patient is scheduled to undergo CRISTIANO today. Mostly trying to rule out endocarditis as the patient had multiple blood cultures positive for MSSA. Blood cultures in the last 2 days have been negativ e. Patient is now on Kefzol chest x-ray continues to show left hemidiaphragm elevation, and bilateral pleural parenchymal disease with patchy airspace disease bilaterally unchanged significantly. CBC is relatively normal WBC count is 6.6 hemoglobin is 10.7. PTT is 49.8. Electrolytes are normal BUN is 56 creatinine 1.47. Patient had issues with low urine output last night, given 500 mL of fluid bolus, urine output remains about 3 0 mL per hour, and she was given Lasix earlier today by nephrology. Not much of a change in her urine output so far. Objective - Vital Signs Vital signs: Vital Signs Temp 97.5 F L 10/28/20 08:00 Pulse 72 10/28/20 10:00 Resp 22 10/28/20 10:00 BP 94/57 10/28/20 08:00 Pulse Ox 97 10/28/20 10:00 Intake & Output 10/27/20 10/28/20 10/28/20 18:59 06:59 18:59 Intake Total 2931.573 2395.370 801.663 Output Total 390 310 400 Balance 2541.573 2085.370 401.663 Weight 125.1 kg Intake: IV 1272 712 174 0.9 pressure bag 72 72 24 Cefepime 2 gm In Sodium 100 Chloride 0.9% 100 ml @ 25 mls/hr IVPB Q12HR [facility] Rx #:[id number] Sodium Chloride 0.9% 1, 600 590 100 000 ml @ 20 mls/hr IV . Q24H [facility] Rx#:[id number] Vancomycin 1,750 mg In 500 Sodium Chloride 0.9% 500 ml 500 ml @ 167 mls/hr IVPB Q24H [facility] Rx#: [id number] ceFAZolin 2 gm In Sodium 50 50 Chloride 0.9% 50 ml @ 100 mls/hr IVPB Q8HR [facility] Rx# :[id number] Intake, IV Titration 243.573 211.370 107.663 Amount Norepinephrine 8 mg In 222.555 35.117 88.335 Sodium Chloride 0.9% 250 ml @ 0.2 MCG/KG/MIN 43. 731 mls/hr IV .Q5H54M [facility] Rx#:[id number] propofoL 1,000 mg In 21.018 176.253 19.328 Empty Bag 1 bag @ Titrate IV .Q0M [facility] Rx#: [id number] Tube Feeding 616 572 220 Other 800 900 300 Output: Urine 390 310 400 Other: Voiding Method Indwelling Catheter Indwelling Catheter Indwelling Catheter ABP, PAP, CO, CI - Last Documented Arterial Blood Pressure 112/52 - Exam Physical Exam: Revealed 75-year-old female sedated intubated and mechanically ventilated. On minimal dose of propofol, I was able to awaken the patient, seems to follow simple instructions. Head: Atraumatic, normocephalic. Endotracheal tube and orogastric tube are intact. HEENT:[Neck is supple.] [No neck masses.] [No thyromegaly.] [No JVD.] PERRLA, EOMI, nonicteric, moist mucous membranes. Left subclavian central line is noted from 10/19 Chest: [Symmetrical chest expansion, crackles at the bases no rhonchi and no wheezes. Cardiac Exam: [Irregular irregular rhythm. Normal S1 and S2, no S3 gallop, 2/6 systolic murmur thought the precordium. Abdomen: [Soft, nontender, no megaly, no rebound, no guarding, normal bowel sounds.] Extremities: [No clubbing, 2+ bipedal edema, no cyanosis.] Diminished distal pulses bilaterally Neurological Exam: Arousable , on small dose of propofol. Follows very simple instructions. Psychiatric: Could not assess. Skin: Multiple areas of bruises, and ecchymosis - Labs CBC & Chem 7: 10/28/20 04:20 10/28/20 04:20 Labs: Abnormal Lab Results - Last 24 Hours (Table) 10/27/20 10/27/20 10/28/20 Range/Units 12:22 18:14 00:15 RBC (3.80-5.40) m/uL Hgb (11.4-16.0) gm/dL MCHC (31.0-37.0) g/dL RDW (11.5-15.5) % Plt Count (150-450) k/uL APTT (22.0-30.0) sec ABG pCO2 (35-45) mmHg ABG pO2 (83-108) mmHg ABG O2 Saturation (94-97) % Chloride (98-107) mmol/L Carbon Dioxide (22-30) mmol/L BUN (7-17) mg/dL Creatinine (0.52-1.04) mg/dL Glucose (74-99) mg/dL POC Glucose (mg/dL) 236 H 177 H 180 H (75-99) mg/dL Calcium (8.4-10.2) mg/dL 10/28/20 10/28/20 10/28/20 Range/Units 04:20 04:20 04:20 RBC 3.52 L (3.80-5.40) m/uL Hgb 10.7 L (11.4-16.0) gm/dL MCHC 30.7 L (31.0-37.0) g/dL RDW 16.6 H (11.5-15.5) % Plt Count 74 L (150-450) k/uL APTT 49.8 H (22.0-30.0) sec ABG pCO2 (35-45) mmHg ABG pO2 (83-108) mmHg ABG O2 Saturation (94-97) % Chloride 116 H (98-107) mmol/L Carbon Dioxide 21 L (22-30) mmol/L BUN 56 H (7-17) mg/dL Creatinine 1.47 H (0.52-1.04) mg/dL Glucose 207 H (74-99) mg/dL POC Glucose (mg/dL) (75-99) mg/dL Calcium 8.3 L (8.4-10.2) mg/dL 10/28/20 10/28/20 10/28/20 Range/Units 06:15 06:48 11:40 RBC (3.80-5.40) m/uL Hgb (11.4-16.0) gm/dL MCHC (31.0-37.0) g/dL RDW (11.5-15.5) % Plt Count (150-450) k/uL APTT (22.0-30.0) sec ABG pCO2 33 L (35-45) mmHg ABG pO2 123 H (83-108) mmHg ABG O2 Saturation 98.8 H (94-97) % Chloride (98-107) mmol/L Carbon Dioxide (22-30) mmol/L BUN (7-17) mg/dL Creatinine (0.52-1.04) mg/dL Glucose (74-99) mg/dL POC Glucose (mg/dL) 174 H 161 H (75-99) mg/dL Calcium (8.4-10.2) mg/dL Microbiology - Last 24 Hours (Table) 10/25/20 17:46 Blood Culture - Preliminary Blood No Growth after 48 hours 10/24/20 09:11 Blood Culture Gram Stain - Final Blood Blood Culture - Final Staphylococcus aureus 10/26/20 12:15 Blood Culture - Preliminary Blood No Growth after 24 hours 10/26/20 11:55 Blood Culture - Preliminary Blood No Growth after 24 hours 10/25/20 06:49 Gram Stain - Final Sputum Sputum Culture - Final Assessment and Plan Assessment: Impression: Acute hypoxic respiratory failure secondary to sepsis and septic shock secondary to MSSA bacteremia exact source is not clear, however if the patient continues to have positive blood cultures may have to be considered for CRISTIANO, Septic shock on presentation. Associated with hypotension although the possibility of cardiogenic shock is not entirely ruled out considering the patient has a very poor ejection fraction of 20-25%. Coronary artery disease and previous CABG. Possible non-ST elevation myocardial infarction on presentation with elevated troponin levels. Paroxysmal atrial fibrillation. History of non-small cell lung cancer stage IIIB status post chemoradiation therapy. Last PET scan was in August of 2020. Left perihilar mass is noted on chest x-ray. Bilateral pleural effusions secondary to systolic congestive heart failure, acute on chronic. Acute shock liver, improving. Acute kidney injury secondary to acute tubular necrosis and possible cardiorenal syndrome on her initial presentation. Improved with fluid resuscitation. Acute on chronic congestive heart failure secondary to ischemic cardiomyopathy and LV dysfunction with ejection fraction of 20-25%. Thrombocytopenia, exact etiology is not clear, improving could very well be related to sepsis. Platelets today are 74,000 Recommendation: Continue ventilatory support. Trials of weaning will be again considered today, but will use a pressure support of 12 and CPAP. Agree with CRISTIANO, presumably scheduled to be done by cardiology today. Continue antibiotics patient is now on cefazolin for MSSA bacteremia. Repeat blood cultures. Negative so far. Continue GI and DVT prophylaxis. Continue Nutritional support, enteral feeding. Continue to monitor platelets while patient is on heparin. Continue hemodynamic support, presently on a small dose of norepinephrine 0.08 mcg/kg/m Monitor daily electrolytes and renal profile Monitor daily x-rays of the chest and daily ABGs. Continue insulin as per protocol. Continue ICU management. Daily trials of weaning off sedation if possible. Patient is critically ill, critical care time is over 30 minutes. Time with Patient: Greater than 30
--- NOTE | 2020-10-28 12:04 | P.TEE ---
Description of Procedure(s): Procedure performed: Transesophageal Echocardiogram with color flow doppler, pulsed wave doppler and continuous wave doppler, moderate conscious sedation Moderate conscious sedation: Moderate conscious sedation was supplied with direct supervision of myself Complications: none Indications: Persistent bacteremia, rule out endocarditis History: Patient is a 75-year-old female with history of MSSA bacteremia, septic shock, acute kidney injury, coronary artery disease status post CABG and PCI, ischemic cardiomyopathy, paroxysmal atrial fibrillation, history of lung cancer. Patient has been in septic shock in the ICU with multiorgan failure. She has had prolonged hospitalization with inability to clear MSSA bacteremia. Therefore CRISTIANO was recommended. PROCEDURE: After the risks, benefits and alternatives of the above mentioned procedure was explained in detail with the patient, informed consent was obtained. Procedure was performed at bedside. Patient was given IV Versed and Fentanyl for sedation. A lubricated Omni probe was then introduced into the esophagus and stomach and multiple views were obtained. 2D echo with color flow doppler, pulsed wave doppler and continuous wave doppler was utilized. Agitated saline bubbles were injected to assess for any intra-atrial shunt. The probe was then removed. Patient tolerated the procedure well. FINDINGS: 1. The aortic valve is tricuspid and function normally. There is more focal sclerosis of the tip of the right coronary cusp. There is mild aortic regurgitation. 2. The mitral valve has a heavily calcified 1.0 x 1.1 cm mass which is mainly adherent to the posterior P2 leaflet. Given heavy calcification this may represent a healed vegetation. Attached to the mass is a more echogenic, highly mobile 0.5 x 1.0 cm mass closer to the leaflet tips most consistent with a vegetation. There is mild mitral regurgitation. 3. Tricuspid valve appears to be normal with milld tricuspid regurgitation. 4. The interatrial septum is intact. No evidence of PFO by color or bubble study. 5. Left atrial appendage is free of clot. 6. Left ventricular size is normal. There is global left ventricular systolic dysfunction with EF 45%.
[2020-10-28] MEDS: HEPARIN SOD,PORK IN 0.45% NACL 25,000 UNIT in 0.45% NACL 1 250ML.BAG IV SCH ×2 (13:01→21:38)
[2020-10-28] MEDS: SODIUM CHLORIDE 0.9% 1,000 ML IV SCH (13:04)
[2020-10-28 17:07] LABS: Glucose,Whole Blood 183 mg/dL (75-99)
[2020-10-28 17:38] LABS: Glucose,Whole Blood 190 mg/dL (75-99)
[2020-10-28 23:46] LABS: Glucose,Whole Blood 191 mg/dL (75-99)
[2020-10-29] MEDS: INSULIN ASPART (NovoLOG) 100 UNIT/ML VIAL SQ SCH ×4 (00:18→18:09)
[2020-10-29] MEDS: NOREPINEPHRINE 8 MG in SODIUM CHLORIDE 0.9% 250 ML IV SCH ×5 (02:09→20:05)
--- NOTE | 2020-10-29 04:58 | PN ---
PROGRESS NOTE DATE OF SERVICE: October 28, 2020. 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 INTERVAL HISTORY: Patient is currently afebrile. The patient is hemodynamically stable. FiO2 is currently stable at 30%. No significant purulent secretions through the ET or diarrhea per the nursing staff. The patient did have CRISTIANO completed today with evidence of mitral valve endocarditis. PHYSICAL EXAMINATION: Blood pressure 103/53 with a pulse of 77, temperature 97.7. She is 97% on 30% FiO2. General description is an elderly female lying in in no distress. Respiratory system: Unlabored breathing, decreased breath sounds at the base. No wheeze. Heart: S1, S2. Regular rate and rhythm. Abdomen: Soft, no tenderness. Extremities: 1+ edema of feet. LABS: Hemoglobin is 10.7, white count 6.6, BUN of 46, creatinine 1.47. Blood culture repeat has been negative so far. DIAGNOSTIC IMPRESSION AND PLAN: Patient with recurrent respiratory failure. Initial concern for pneumonia likely secondary to aspiration etiology now with evidence of mitral valve endocarditis. Patient is covered with cefazolin. Repeat blood culture has been negative. Continue supportive care. MMODL / IJN: [id number] / MTDD
[2020-10-29 05:10] LABS: Anisocytosis Slight; Basophils % (A) 0 %; Eosinophils # (A) 0.1 k/uL (0-0.7); Eosinophils % (A) 1 %; HCT 33.9 % (34.0-46.0); HGB 10.7 gm/dL (11.4-16.0); Hypochromasia Moderate; Lymphocytes # (A) 0.7 k/uL (1.0-4.8); Lymphocytes % (A) 8 %; MCH 31.7 pg (25.0-35.0); MCHC 31.7 g/dL (31.0-37.0); MCV 100.1 fL (80.0-100.0); Macrocytosis Slight; Mean Platelet Volume 11.3; Monocytes # (A) 0.3 k/uL (0-1.0); Monocytes % (A) 4 %; Neutrophils # (A) 6.7 k/uL (1.3-7.7); Neutrophils % (A) 86 %; RBC 3.39 m/uL (3.80-5.40); RDW 16.7 % (11.5-15.5); WBC 7.8 k/uL (3.8-10.6)
[2020-10-29 05:32] LABS: Albumin 2.1 g/dL (3.5-5.0); Potassium 3.8 mmol/L (3.5-5.1); Total Bilirubin 1.1 mg/dL (0.2-1.3); Total Protein 5.4 g/dL (6.3-8.2)
[2020-10-29 05:36] LABS: ABG Base Excess -1.8 mmol/L; ABG HCO3 23 mmol/L (21-25); ABG Oxygen Saturation 95.6 % (94-97); ABG PCO2 37 mmHg (35-45); ABG PO2 80 mmHg (83-108); ABG TCO2 24 mmol/L (19-24); Allen Test Performed? Yes
[2020-10-29 05:43] LABS: Platelet Count 71 k/uL (150-450)
[2020-10-29 06:06] LABS: Glucose,Whole Blood 233 mg/dL (75-99)
[2020-10-29] MEDS: LEVOTHYROXINE 88 MCG TAB PO SCH (06:24)
[2020-10-29] MEDS: POTASSIUM BICARBONATE/CIT AC 20 MEQ TABLET.EFF PO SCH ×2 (06:24→08:32)
[2020-10-29] MEDS: INSULIN DETEMIR (LEVEMIR) 100 UNIT/ML SYR SQ SCH (06:25)
--- NOTE | 2020-10-29 07:29 | XR ---
EXAMINATION TYPE: XR chest 1V portable DATE OF EXAM: 10/29/2020 COMPARISON: 10/28/2020 HISTORY: Tube placement TECHNIQUE: Single frontal view of the chest is obtained. FINDINGS: Endotracheal tube is in appropriate position. Enteric tube is subdiaphragmatic and lore es inferiorly off this image with side port in the region of the gastroesophageal junction. Left subc lavian line is unchanged. There is unchanged elevation of the left hemidiaphragm and haziness in the bilateral lung bases with likely small bilateral pleural effusions. Cardiac silhouette is unchanged with sternotomy changes. IMPRESSION: Lines and tubes, as above. Similar appearance to the lungs when compared to the prior exam.
--- NOTE | 2020-10-29 08:05 | P.PN ---
Subjective Patient is seen in follow-up for acute kidney injury. Renal function slightly improved. Intubated. Receiving tube feeding. Remains on Levophed. Urine output improved with IV Lasix. Vital signs: Stable. On vasopressor support. HEENT: Intubated. LUNGS: Breath sounds decreased. HEART: Regular rhythm. ABDOMEN: Soft, obese. EXTREMITITES: 1+ edema. Objective - Vital Signs Vital signs: Vital Signs Temp 97.5 F L 10/29/20 04:00 Pulse 114 H 10/29/20 07:00 Resp 28 H 10/29/20 07:00 BP 94/57 10/28/20 23:00 Pulse Ox 94 L 10/29/20 07:00 Intake & Output 10/28/20 10/29/20 10/29/20 18:59 06:59 18:59 Intake Total 2370.489 2225.704 84 Output Total 1135 590 40 Balance 2539.722 8942.704 44 Weight 125.1 kg 123.9 kg Intake: IV 382 312 26 0.9 pressure bag 72 39 3 CVP Flush 33 3 Sodium Chloride 0.9% 1, 100 220 20 000 ml @ 20 mls/hr IV . Q24H [facility] Rx#:[id number] ceFAZolin 2 gm In Sodium 210 20 Chloride 0.9% 50 ml @ 100 mls/hr IVPB Q8HR [facility] Rx# :[id number] Intake, IV Titration 504.489 259.704 Amount Heparin Sod,Pork in 0.45% 250 58.154 NaCl 25,000 unit In 0.45 % NaCl 1 250ml.bag @ 9.22 UNITS/KG/HR 10.004 mls/ hr IV .Q24H [facility] Rx#: [id number] Norepinephrine 8 mg In 235.161 120.878 Sodium Chloride 0.9% 250 ml @ 0.2 MCG/KG/MIN 43. 731 mls/hr IV .Q5H54M [facility] Rx#:[id number] propofoL 1,000 mg In 19.328 80.672 Empty Bag 1 bag @ Titrate IV .Q0M [facility] Rx#: [id number] Tube Feeding 584 1054 58 Other 900 600 Output: Urine 1135 590 40 Other: Voiding Method Indwelling Catheter Indwelling Catheter ABP, PAP, CO, CI - Last Documented Arterial Blood Pressure 108/73 - Labs CBC & Chem 7: 10/29/20 04:55 10/29/20 04:55 Labs: Abnormal Lab Results - Last 24 Hours (Table) 10/28/20 10/28/20 10/28/20 Range/Units 11:40 17:05 17:36 RBC (3.80-5.40) m/uL Hgb (11.4-16.0) gm/dL Hct (34.0-46.0) % MCV (80.0-100.0) fL RDW (11.5-15.5) % Plt Count (150-450) k/uL Lymphocytes # (1.0-4.8) k/uL APTT (22.0-30.0) sec ABG pO2 (83-108) mmHg Chloride (98-107) mmol/L Carbon Dioxide (22-30) mmol/L BUN (7-17) mg/dL Creatinine (0.52-1.04) mg/dL Glucose (74-99) mg/dL POC Glucose (mg/dL) 161 H 183 H 190 H (75-99) mg/dL Calcium (8.4-10.2) mg/dL AST (14-36) U/L Alkaline Phosphatase (38-126) U/L Total Protein (6.3-8.2) g/dL Albumin (3.5-5.0) g/dL 10/28/20 10/29/20 10/29/20 Range/Units 23:45 04:55 04:55 RBC 3.39 L (3.80-5.40) m/uL Hgb 10.7 L (11.4-16.0) gm/dL Hct 33.9 L (34.0-46.0) % MCV 100.1 H (80.0-100.0) fL RDW 16.7 H (11.5-15.5) % Plt Count 71 L (150-450) k/uL Lymphocytes # 0.7 L (1.0-4.8) k/uL APTT (22.0-30.0) sec ABG pO2 (83-108) mmHg Chloride 113 H (98-107) mmol/L Carbon Dioxide 21 L (22-30) mmol/L BUN 57 H (7-17) mg/dL Creatinine 1.38 H (0.52-1.04) mg/dL Glucose 229 H (74-99) mg/dL POC Glucose (mg/dL) 191 H (75-99) mg/dL Calcium 8.0 L (8.4-10.2) mg/dL AST 41 H (14-36) U/L Alkaline Phosphatase 160 H (38-126) U/L Total Protein 5.4 L (6.3-8.2) g/dL Albumin 2.1 L (3.5-5.0) g/dL 10/29/20 10/29/20 10/29/20 Range/Units 04:55 05:31 06:05 RBC (3.80-5.40) m/uL Hgb (11.4-16.0) gm/dL Hct (34.0-46.0) % MCV (80.0-100.0) fL RDW (11.5-15.5) % Plt Count (150-450) k/uL Lymphocytes # (1.0-4.8) k/uL APTT 44.2 H (22.0-30.0) sec ABG pO2 80 L (83-108) mmHg Chloride (98-107) mmol/L Carbon Dioxide (22-30) mmol/L BUN (7-17) mg/dL Creatinine (0.52-1.04) mg/dL Glucose (74-99) mg/dL POC Glucose (mg/dL) 233 H (75-99) mg/dL Calcium (8.4-10.2) mg/dL AST (14-36) U/L Alkaline Phosphatase (38-126) U/L Total Protein (6.3-8.2) g/dL Albumin (3.5-5.0) g/dL Microbiology - Last 24 Hours (Table) 10/25/20 17:46 Blood Culture - Preliminary Blood No Growth after 72 hours 10/26/20 12:15 Blood Culture - Preliminary Blood No Growth after 48 hours 10/26/20 11:55 Blood Culture - Preliminary Blood No Growth after 48 hours Assessment and Plan Plan: Assessment: 1. Acute kidney injury secondary to ATN secondary to hypotension and sepsis. Renal function slightly improved. Creatinine 1.38 today. 2. MSSA bacteremia maintained on antibiotics. 3. Metabolic acidosis secondary to acute kidney injury, lactic acidosis. Partially also compensatory for respiratory alkalosis. Stable. 4. Acute hypoxic respiratory failure. 5. History of non-small cell lung cancer. 6. Chronic systolic CHF with ejection fraction of 20-25%. 7. Hypernatremia from lack of oral water intake. Improved. Plan: Repeat lasix 40 mg IV once today. Maintain tube feeding. Maintain free water flushes at a rate of 300 mL every 4 hours. Wean FiO2 and vasopressors. Continue to monitor renal function and urine output.
[2020-10-29] MEDS: CHLORHEXIDINE GLUCONATE 15 ML CUP MUCOUS MEM SCH ×2 (08:32→21:48)
[2020-10-29] MEDS: PANTOPRAZOLE 40 MG/10 ML VIAL IVP SCH (08:33)
[2020-10-29] MEDS ORDERED: FUROSEMIDE 10 MG/ML 4 ML VIAL IV STA (09:40)
[2020-10-29] MEDS: SODIUM CHLORIDE 0.9% 1,000 ML IV SCH ×2 (09:49→20:00)
[2020-10-29 11:17] LABS: INR 1.4 (<1.2); Prothrombin Time 13.9 sec (9.0-12.0)
[2020-10-29 11:32] LABS: Glucose,Whole Blood 273 mg/dL (75-99)
--- NOTE | 2020-10-29 11:38 | PN ---
PROGRESS NOTE Mrs. Green is a lady admitted with methicillin sensitive Staph aureus bacteremia. Yesterday, a transesophageal echo by Dr. Ramirez suggests that there is mitral valve vegetation suggestive of endocarditis. Given her multiple comorbid conditions, I am recommending conservative management. She is on a modest dose of Levophed. The urine output is 30-40 mL/hour. She is in atrial fib, controlled rate on heparin drip. Platelet count is ranging anywhere from mid 70s to 95 or so and this morning it is about 71. We will continue current medical regimen including antibiotics as per Infectious Disease specialist, Dr. Casillas. Physical exam revealed JVD 1 cm. No carotid bruit. S1, S2 with a systolic murmur at the base and left sternal border. There is an irregular rhythm. Lungs revealed diminished ventilator assisted breath sounds. Abdomen is soft. Lower extremities reveal diminished pulses. Central nervous system assessment not performed. IMPRESSION: 1. Mitral valve endocarditis with MSSA. We will continue conservative management. 2. Coronary artery disease with multivessel PCI and previous bypass surgery. 3. History of chronic atrial fibrillation. RECOMMENDATIONS: Prognosis is poor. Continue conservative management including antibiotics. Prognosis remains poor. MMODL / IJN: [id number] /
--- NOTE | 2020-10-29 12:24 | P.PN ---
Subjective Progress Note Date: 10/29/20 Principal diagnosis: Acute hypoxic respiratory failure secondary to Septic shock secondary to MSSA sepsis and bacteremia. 10/25/2020, the patient is intubated again.I had to intubate the patient again because of hemodynamic instability, hypotension, metabolic acidosis, and altered mentation. As stated earlier, recurrent bouts of sepsis was suspected as the patient was becoming hypotensive, tachycardic and she has also developed worsening and leukocytosis. For that reason, the patient was given IV fluids and she was aggressively resuscitated IV fluids received a total of 60-70 fluids yesterday and the net fluid balance is +9.5 L over the past 24 hours. Also, the patient was broadened in terms of her antibiotic coverage and she was placed on a combination of cefepime and vancomycin. Repeat cultures are still pending for now. Pro-calcitonin is still downtrending and is down to 3.19. Note that the lactic acid came as high as 7.9 and currently down to 2.5. This morning, the patient is intubated on a mechanical ventilator. the patient is well sedated with propofol which is running at 50 mics per kilogram per minute. The patient At this point in time she is an assist-control mode at the rate of 26 with a tidal volume of 500 and FiO2 of 50% with a PEEP of 5. Blood gases from today showed a pH of 7.51 with a pCO2 of 24 and pO2 182. the patient is quite hyp otensive still. Pressor requirements has fluctuated throughout the day yesterday. Note that she has advanced cardiomyopathy with ejection fraction of 20-25%. Currently, norepinephrine has been weaned down to 0.2 mcg/kg per minute.Chest x-ray showing some slight increase in the left-sided pleural effusion. Is also left suprahilar opacity consistent with previous history of non-small cell lung cancer. White cell count peaked at 20.9 and it dropped down to 13.9. She remains in atrial fibrillation. Heart is less tachycardic. Noted the patient also developed an acute kidney injury. Creatinine was as high as 1.5 along with lactic acidosis. The patient was given bicarb infusion and the creatinine today is at 1.46. Lactic acid level is improving. Urine output is fluctuating,, currently she is producing somewhere between 5-30 mL an hour of urine output. She remains on IV heparin. Platelet counts have been stable, and the patient is also On IV heparin.I'm seeing this patient along with various consultants from cardiology, nephrology and infectious disease. Patient was reevaluated today on 10/26/2020, patient was reintubated on the although she was extubated on the , and remains on mechanical ventilation again since the . She is presently on assist control rate of 26 tidal volume is 400 FiO2 is 40% PEEP of 5. ABG showed a pO2 of 145 and I was on 50% pCO2 of 32 pH of 7.43 hence the FiO2 was decreased down to 40%. Patient is on multiple drips including propofol and 50 but granted per kilo per minute, she is also on heparin and IV fluid at 0.9 mL 100 mL per hour. Current down to 50 mL per hour. Blood cultures have been positive intermittently for MSSA patient remains on cefepime and on vancomycin. Looking back at the chart patient was intubated initially on 10/19 extubated on 10/22 reintubated on 10/24. Her last echocardiogram showed poor LV function with ejection fraction of 20-25% at best. Patient is receiving tube feeding/Glucerna at 40 ML's per hour. She is not requiring any norepinephrine at this point. Blood pressure seems to be relatively stable, patient is in atrial fibrillation with controlled rate of 80. Looking back at the chart she had initial presentation of sepsis and mild DKA. Labs today showed relatively normal CBC with WBC count of 8.3 hemoglobin 11.8. PTT is 56. Platelets are 98,000. Sodium is 146 potassium 3.9 chloride 116 bicarb is 20 BUN is 56 creatinine 1.37. Last blood culture from the was positive, and the one from the is negative so far. Left paramediastinal mass remains about the same. Patient was reevaluated today on 10/27/2020, patient remains in the ICU, intubated and mechanically ventilated. No major pipe changer the last 24 hours. Patient remains sedated, she is on propofol at 30 mcg/kg/m, she is requiring norepinephrine at 0.09 and we increased it to 0.1 mcg/kg/m, held her propofol and we were trying to assess her mental status. Her assist-control rate is 26, volume 400 FiO2 40% PEEP of 5 her peak airway pressure is 29 plateau pressure is 21 patient is on IV fluid at 20 mL per hour, she is also on heparin. Her most recent blood cultures are negative so far. Patient is in atrial fibrillation with controlled rate. She is being treated for MSSA bacteremia. Remains on an tibiotics in the form of vancomycin and cefepime. Today the patient was awakened but did not seem to do well with a trial of weaning trying to pressure support of 14 and CPAP. Continue to have very shallow reading and mentally was not appropriate enough to proceed with further weaning trials. Hence placed back on assist control mode of mechanical ventilation. Asked x-ray continues to show evidence of bilateral interstitial infiltrates/edema. WBC count is 8.6 hemoglobin is 10.7 PTT is 53.9 ABG showed a pO2 of 100 pCO2 of 33 pH of 7.43 electrolytes showed sodium 146 chloride is 117 bicarb 22 BUN 57 creatinine 1.49 Reevaluated today on 10/28/20, remains intubated and mechanically ventilated. Patient is on assist control rate of 26 tidal volume 400 FiO2 30% PEEP of 5. EEG showed a pO2 of 123 pCO2 33 pH of 7.45. Remains on propofol at 10 mcg/kg/m and on norepinephrine at 0.08 mcg/kg/m. Patient is scheduled to undergo CRISTIANO today. Mostly trying to rule out endocarditis as the patient had multiple blood cultures positive for MSSA. Blood cultures in the last 2 days have been negativ e. Patient is now on Kefzol chest x-ray continues to show left hemidiaphragm elevation, and bilateral pleural parenchymal disease with patchy airspace disease bilaterally unchanged significantly. CBC is relatively normal WBC count is 6.6 hemoglobin is 10.7. PTT is 49.8. Electrolytes are normal BUN is 56 creatinine 1.47. Patient had issues with low urine output last night, given 500 mL of fluid bolus, urine output remains about 3 0 mL per hour, and she was given Lasix earlier today by nephrology. Not much of a change in her urine output so far. Patient was reevaluated today on 10/29/2020, remains in the ICU, intubated and mechanically ventilated. Her transesophageal echocardiogram clearly showed evidence of mitral vegetations, and the source of her MSSA bacteremia seems to be related to ongoing endocarditis. Patient is on assist control rate of 26 tidal volume is 400 FiO2 30% PEEP of 5. She is on heparin for atrial fibrillation, rate is 120 today. She remains on norepinephrine at 0.08. She is off propofol this morning to assess whether the patient could wean, however a short trial of pressure support of 14 and CPAP clearly demonstrated that the patient is not amenable. She had very small tidal volumes and her rate went up as high as 40. I recommended that she goes back on assist control mode of mechanical ventilation. I'm also recommending tracheostomy and PEG tube placement in this patient. Her ABG today showed a pO2 of 80, pCO2 37 pH of 7.40 and this was on the vent settings as noted above. Electrolytes are normal BUN is 57 creatinine 1.38. WBC count is 7.8 hemoglobin is 10.7. Patient had negative blood cultures for the last 2 or 3 days. Remains on cefazolin. Chest x-ray continues to show significant elevated left hemidiaphragm. And haziness in the bases with small pleural effusions consistent with mild congestive heart failure underlying pneumonia is not entirely ruled out but felt to be less likely Objective - Vital Signs Vital signs: Vital Signs Temp 97.2 F L 10/29/20 12:00 Pulse 85 10/29/20 12:00 Resp 52 H 10/29/20 12:00 BP 75/27 10/29/20 12:00 Pulse Ox 97 10/29/20 12:00 Intake & Output 10/28/20 10/29/20 10/29/20 18:59 06:59 18:59 Intake Total 2370.489 2225.704 884.590 Output Total 1135 590 187 Balance 2323.792 7353.704 697.590 Weight 125.1 kg 123.9 kg Intake: IV 382 312 206 0.9 pressure bag 72 39 18 CVP Flush 33 18 Sodium Chloride 0.9% 1, 100 220 120 000 ml @ 20 mls/hr IV . Q24H [facility] Rx#:[id number] ceFAZolin 2 gm In Sodium 210 20 50 Chloride 0.9% 50 ml @ 100 mls/hr IVPB Q8HR [facility] Rx# :[id number] Intake, IV Titration 504.489 259.704 146.590 Amount Heparin Sod,Pork in 0.45% 250 58.154 NaCl 25,000 unit In 0.45 % NaCl 1 250ml.bag @ 9.22 UNITS/KG/HR 10.004 mls/ hr IV .Q24H [facility] Rx#: [id number] Norepinephrine 8 mg In 235.161 120.878 91.906 Sodium Chloride 0.9% 250 ml @ 0.2 MCG/KG/MIN 43. 731 mls/hr IV .Q5H54M [facility] Rx#:[id number] propofoL 1,000 mg In 19.328 80.672 54.684 Empty Bag 1 bag @ Titrate IV .Q0M [facility] Rx#: [id number] Tube Feeding 584 1054 232 Other 900 600 300 Output: Urine 1135 590 187 Other: Voiding Method Indwelling Catheter Indwelling Catheter Indwelling Catheter ABP, PAP, CO, CI - Last Documented Arterial Blood Pressure 106/55 - Exam Physical Exam: Revealed 75-year-old female sedated intubated and mechanically ventilated. Off propofol, patient is appropriate, follows simple instructions, failed weaning trial with pressure support and CPAP. Head: Atraumatic, normocephalic. Endotracheal tube and orogastric tube are intact. HEENT:[Neck is supple.] [No neck masses.] [No thyromegaly.] [No JVD.] PERRLA, EOMI, nonicteric, moist mucous membranes. Chest: [Symmetrical chest expansion, crackles at the bases no rhonchi and no wheezes. Cardiac Exam: [Irregular irregular rhythm. Normal S1 and S2, no S3 gallop, 2/6 systolic murmur thought the precordium. Abdomen: [Soft, nontender, no megaly, no rebound, no guarding, normal bowel sounds.] Extremities: [No clubbing, 2+ bipedal edema, no cyanosis.] Diminished distal pulses bilaterally Neurological Exam: Alert and oriented 3, no gross focal neurologic deficit except noted to be generally weak. Psychiatric: Mood and affect, normal mental status. Skin: Multiple areas of bruises, and ecchymosis - Labs CBC & Chem 7: 10/29/20 04:55 10/29/20 04:55 Labs: Abnormal Lab Results - Last 24 Hours (Table) 10/28/20 10/28/20 10/28/20 Range/Units 17:05 17:36 23:45 RBC (3.80-5.40) m/uL Hgb (11.4-16.0) gm/dL Hct (34.0-46.0) % MCV (80.0-100.0) fL RDW (11.5-15.5) % Plt Count (150-450) k/uL Lymphocytes # (1.0-4.8) k/uL PT (9.0-12.0) sec INR (<1.2) APTT (22.0-30.0) sec ABG pO2 (83-108) mmHg Chloride (98-107) mmol/L Carbon Dioxide (22-30) mmol/L BUN (7-17) mg/dL Creatinine (0.52-1.04) mg/dL Glucose (74-99) mg/dL POC Glucose (mg/dL) 183 H 190 H 191 H (75-99) mg/dL Calcium (8.4-10.2) mg/dL AST (14-36) U/L Alkaline Phosphatase (38-126) U/L Total Protein (6.3-8.2) g/dL Albumin (3.5-5.0) g/dL 10/29/20 10/29/20 10/29/20 Range/Units 04:55 04:55 04:55 RBC 3.39 L (3.80-5.40) m/uL Hgb 10.7 L (11.4-16.0) gm/dL Hct 33.9 L (34.0-46.0) % MCV 100.1 H (80.0-100.0) fL RDW 16.7 H (11.5-15.5) % Plt Count 71 L (150-450) k/uL Lymphocytes # 0.7 L (1.0-4.8) k/uL PT (9.0-12.0) sec INR (<1.2) APTT 44.2 H (22.0-30.0) sec ABG pO2 (83-108) mmHg Chloride 113 H (98-107) mmol/L Carbon Dioxide 21 L (22-30) mmol/L BUN 57 H (7-17) mg/dL Creatinine 1.38 H (0.52-1.04) mg/dL Glucose 229 H (74-99) mg/dL POC Glucose (mg/dL) (75-99) mg/dL Calcium 8.0 L (8.4-10.2) mg/dL AST 41 H (14-36) U/L Alkaline Phosphatase 160 H (38-126) U/L Total Protein 5.4 L (6.3-8.2) g/dL Albumin 2.1 L (3.5-5.0) g/dL 10/29/20 10/29/20 10/29/20 Range/Units 04:55 05:31 06:05 RBC (3.80-5.40) m/uL Hgb (11.4-16.0) gm/dL Hct (34.0-46.0) % MCV (80.0-100.0) fL RDW (11.5-15.5) % Plt Count (150-450) k/uL Lymphocytes # (1.0-4.8) k/uL PT 13.9 H (9.0-12.0) sec INR 1.4 H (<1.2) APTT (22.0-30.0) sec ABG pO2 80 L (83-108) mmHg Chloride (98-107) mmol/L Carbon Dioxide (22-30) mmol/L BUN (7-17) mg/dL Creatinine (0.52-1.04) mg/dL Glucose (74-99) mg/dL POC Glucose (mg/dL) 233 H (75-99) mg/dL Calcium (8.4-10.2) mg/dL AST (14-36) U/L Alkaline Phosphatase (38-126) U/L Total Protein (6.3-8.2) g/dL Albumin (3.5-5.0) g/dL 10/29/20 Range/Units 11:30 RBC (3.80-5.40) m/uL Hgb (11.4-16.0) gm/dL Hct (34.0-46.0) % MCV (80.0-100.0) fL RDW (11.5-15.5) % Plt Count (150-450) k/uL Lymphocytes # (1.0-4.8) k/uL PT (9.0-12.0) sec INR (<1.2) APTT (22.0-30.0) sec ABG pO2 (83-108) mmHg Chloride (98-107) mmol/L Carbon Dioxide (22-30) mmol/L BUN (7-17) mg/dL Creatinine (0.52-1.04) mg/dL Glucose (74-99) mg/dL POC Glucose (mg/dL) 273 H (75-99) mg/dL Calcium (8.4-10.2) mg/dL AST (14-36) U/L Alkaline Phosphatase (38-126) U/L Total Protein (6.3-8.2) g/dL Albumin (3.5-5.0) g/dL Microbiology - Last 24 Hours (Table) 10/25/20 17:46 Blood Culture - Preliminary Blood No Growth after 72 hours 10/26/20 12:15 Blood Culture - Preliminary Blood No Growth after 48 hours 10/26/20 11:55 Blood Culture - Preliminary Blood No Growth after 48 hours Assessment and Plan Assessment: Impression: Acute hypoxic respiratory failure secondary to sepsis and septic shock secondary to MSSA bacteremia exact source is not clear, however if the patient continues to have positive blood cultures may have to be considered for CRISTIANO, Septic shock on presentation. Associated with hypotension although the possibility of cardiogenic shock is not entirely ruled out considering the patient has a very poor ejection fraction of 20-25%. Coronary artery disease and previous CABG. Bacteremia secondary to acute endocarditis. Possible non-ST elevation myocardial infarction on presentation with elevated troponin levels. Paroxysmal atrial fibrillation. History of non-small cell lung cancer stage IIIB status post chemoradiation therapy. Last PET scan was in August of 2020. Left perihilar mass is noted on chest x-ray. Bilateral pleural effusions secondary to systolic congestive heart failure, acute on chronic. Acute shock liver, improving. Acute kidney injury secondary to acute tubular necrosis and possible cardiorenal syndrome on her initial presentation. Improved with fluid resuscitation. Acute on chronic congestive heart failure secondary to ischemic cardiomyopathy and LV dysfunction with ejection fraction of 20-25%. Thrombocytopenia, exact etiology is not clear, improving could very well be related to sepsis. Platelets today are 74,000 Failure to wean in spite of having the patient on pressure support of 14 and CPAP. Hence I'm recommending tracheostomy, PEG tube placement, and we will need today Shabana arrange for a PICC line for long-term IV antibiotics. 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 Recommendation: Continue ventilatory support. Patient failed weaning trying pressure support of 14 and CPAP. Consult surgery for tracheostomy and PEG tube placement Consult interventional radiology for PICC line placement and discontinue central line. Patient will need long-term IV antibiotics. Continue antibiotics patient is now on cefazolin for MSSA bacteremia. Repeat blood cultures. Negative so far. Continue GI and DVT prophylaxis. Continue Nutritional support, enteral feeding. Continue to monitor platelets , patient is back on heparin Continue hemodynamic support, presently on a small dose of norepinephrine 0.08 mcg/kg/m Monitor daily electrolytes and renal profile Monitor daily x-rays of the chest and daily ABGs. Continue insulin as per protocol. Continue ICU management. Daily sedation holidays. Patient is critically ill, critical care time is over 30 minutes. Time with Patient: Greater than 30
--- NOTE | 2020-10-29 12:29 | P.PN ---
Subjective Progress Note Date: 10/29/20 Patient is sedated and intubated. There is no acute events overnight reported by nursing staff. Patient failed spontaneous breathing trial this morning. Objective - Vital Signs Vital signs: Vital Signs Temp 97.2 F L 10/29/20 12:00 Pulse 85 10/29/20 12:00 Resp 52 H 10/29/20 12:00 BP 75/27 10/29/20 12:00 Pulse Ox 97 10/29/20 12:00 Intake & Output 10/28/20 10/29/20 10/29/20 18:59 06:59 18:59 Intake Total 2370.489 2225.704 884.590 Output Total 1135 590 187 Balance 9505.688 8910.704 697.590 Weight 125.1 kg 123.9 kg Intake: IV 382 312 206 0.9 pressure bag 72 39 18 CVP Flush 33 18 Sodium Chloride 0.9% 1, 100 220 120 000 ml @ 20 mls/hr IV . Q24H [facility] Rx#:[id number] ceFAZolin 2 gm In Sodium 210 20 50 Chloride 0.9% 50 ml @ 100 mls/hr IVPB Q8HR [facility] Rx# :[id number] Intake, IV Titration 504.489 259.704 146.590 Amount Heparin Sod,Pork in 0.45% 250 58.154 NaCl 25,000 unit In 0.45 % NaCl 1 250ml.bag @ 9.22 UNITS/KG/HR 10.004 mls/ hr IV .Q24H [facility] Rx#: [id number] Norepinephrine 8 mg In 235.161 120.878 91.906 Sodium Chloride 0.9% 250 ml @ 0.2 MCG/KG/MIN 43. 731 mls/hr IV .Q5H54M [facility] Rx#:[id number] propofoL 1,000 mg In 19.328 80.672 54.684 Empty Bag 1 bag @ Titrate IV .Q0M [facility] Rx#: [id number] Tube Feeding 584 1054 232 Other 900 600 300 Output: Urine 1135 590 187 Other: Voiding Method Indwelling Catheter Indwelling Catheter Indwelling Catheter ABP, PAP, CO, CI - Last Documented Arterial Blood Pressure 106/55 - Exam General: The patient is sedated and intubated Eye: there is normal conjunctiva bilaterally. Neck: The neck is supple, there is no JVD. Cardiovascular: Normal S1-S2, no S3-S4, no murmurs. Respiratory: Lungs clear to auscultation bilaterally Gastrointestinal: Abdomen is soft, nontender Musculoskeletal: There is no pedal edema. Skin: Skin is warm and dry - Labs CBC & Chem 7: 10/29/20 04:55 10/29/20 04:55 Labs: Abnormal Lab Results - Last 24 Hours (Table) 10/28/20 10/28/20 10/28/20 Range/Units 17:05 17:36 23:45 RBC (3.80-5.40) m/uL Hgb (11.4-16.0) gm/dL Hct (34.0-46.0) % MCV (80.0-100.0) fL RDW (11.5-15.5) % Plt Count (150-450) k/uL Lymphocytes # (1.0-4.8) k/uL PT (9.0-12.0) sec INR (<1.2) APTT (22.0-30.0) sec ABG pO2 (83-108) mmHg Chloride (98-107) mmol/L Carbon Dioxide (22-30) mmol/L BUN (7-17) mg/dL Creatinine (0.52-1.04) mg/dL Glucose (74-99) mg/dL POC Glucose (mg/dL) 183 H 190 H 191 H (75-99) mg/dL Calcium (8.4-10.2) mg/dL AST (14-36) U/L Alkaline Phosphatase (38-126) U/L Total Protein (6.3-8.2) g/dL Albumin (3.5-5.0) g/dL 10/29/20 10/29/20 10/29/20 Range/Units 04:55 04:55 04:55 RBC 3.39 L (3.80-5.40) m/uL Hgb 10.7 L (11.4-16.0) gm/dL Hct 33.9 L (34.0-46.0) % MCV 100.1 H (80.0-100.0) fL RDW 16.7 H (11.5-15.5) % Plt Count 71 L (150-450) k/uL Lymphocytes # 0.7 L (1.0-4.8) k/uL PT (9.0-12.0) sec INR (<1.2) APTT 44.2 H (22.0-30.0) sec ABG pO2 (83-108) mmHg Chloride 113 H (98-107) mmol/L Carbon Dioxide 21 L (22-30) mmol/L BUN 57 H (7-17) mg/dL Creatinine 1.38 H (0.52-1.04) mg/dL Glucose 229 H (74-99) mg/dL POC Glucose (mg/dL) (75-99) mg/dL Calcium 8.0 L (8.4-10.2) mg/dL AST 41 H (14-36) U/L Alkaline Phosphatase 160 H (38-126) U/L Total Protein 5.4 L (6.3-8.2) g/dL Albumin 2.1 L (3.5-5.0) g/dL 10/29/20 10/29/20 10/29/20 Range/Units 04:55 05:31 06:05 RBC (3.80-5.40) m/uL Hgb (11.4-16.0) gm/dL Hct (34.0-46.0) % MCV (80.0-100.0) fL RDW (11.5-15.5) % Plt Count (150-450) k/uL Lymphocytes # (1.0-4.8) k/uL PT 13.9 H (9.0-12.0) sec INR 1.4 H (<1.2) APTT (22.0-30.0) sec ABG pO2 80 L (83-108) mmHg Chloride (98-107) mmol/L Carbon Dioxide (22-30) mmol/L BUN (7-17) mg/dL Creatinine (0.52-1.04) mg/dL Glucose (74-99) mg/dL POC Glucose (mg/dL) 233 H (75-99) mg/dL Calcium (8.4-10.2) mg/dL AST (14-36) U/L Alkaline Phosphatase (38-126) U/L Total Protein (6.3-8.2) g/dL Albumin (3.5-5.0) g/dL 10/29/20 Range/Units 11:30 RBC (3.80-5.40) m/uL Hgb (11.4-16.0) gm/dL Hct (34.0-46.0) % MCV (80.0-100.0) fL RDW (11.5-15.5) % Plt Count (150-450) k/uL Lymphocytes # (1.0-4.8) k/uL PT (9.0-12.0) sec INR (<1.2) APTT (22.0-30.0) sec ABG pO2 (83-108) mmHg Chloride (98-107) mmol/L Carbon Dioxide (22-30) mmol/L BUN (7-17) mg/dL Creatinine (0.52-1.04) mg/dL Glucose (74-99) mg/dL POC Glucose (mg/dL) 273 H (75-99) mg/dL Calcium (8.4-10.2) mg/dL AST (14-36) U/L Alkaline Phosphatase (38-126) U/L Total Protein (6.3-8.2) g/dL Albumin (3.5-5.0) g/dL Microbiology - Last 24 Hours (Table) 10/25/20 17:46 Blood Culture - Preliminary Blood No Growth after 72 hours 10/26/20 12:15 Blood Culture - Preliminary Blood No Growth after 48 hours 10/26/20 11:55 Blood Culture - Preliminary Blood No Growth after 48 hours Assessment and Plan Assessment: This is a 75-year-old female with past medical history significant for left lung cancer now in remission that presented to the emergency room with fevers. Patient was evaluated in the ER and admitted to the hospital for further management of her medical problems noted below. 1. Severe sepsis with septic shock, treated with aggressive IV fluid hydration and antibiotic. Required vasopressors till 10/22 then again on 10/24. 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 Influenza, Covid-19, and C. diff screen negative 2. MSSA bacteremia, blood culture cleared on 614 for a few days but turned back positive on 10/24. Patient has been on antibiotics since admission transitioned from cefazolin to vancomycin and cefepime and now back to cefazolin. Blood culture on 10/25 negative to date. Infectious disease following closely 3. Severe sepsis with septic shock secondary to underlying acute endocarditis 4. Acute kidney injury, oliguric. hyperkalemia: Resolved. Avoid nephrotoxins. Nephrology consulted for further evaluation. 5. Acute respiratory failure requiring sedation and mechanical intubation successfully extubated and then reintubated on 10/24 5. Metabolic acidosis secondary to above 6. Liver shock with coagulopathy secondary to hypotension. Liver enzymes trending now 7. Troponin elevation, non-thrombotic troponin leak secondary to severe sepsis. Cardiology consulted for further evaluation. Echocardiogram showed EF of 20- 25% 8. Chronic atrial fibrillation on anticoagulation with Coumadin, Currently on IV heparin will continue to monitor for thrombocytopenia 9. Chronic congestive heart failure, systolic. Lasix 40 mg daily ordered 10. History of lung cancer in remission 11. Worsening thrombocytopenia: Platelet count stable in the 70s. Probably secondary to presentation with severe sepsis. We will continue to monitor closely. Today, I reviewed her medication list and lab work results Cardiology recommended conservative management and IV antibiotic for underlying endocarditis Plan for PEG tube and tracheostomy tube feeding per dietitian Overall prognosis guarded Daughter bedside was updated
[2020-10-29] MEDS ORDERED: LIDOCAINE 1% INJ 10MG/ML (20 ML MDV) ONE (12:45)
[2020-10-29] MEDS ORDERED: LIDOCAINE 1% INJ 10MG/ML (20 ML MDV) SQ ONE (13:09)
--- NOTE | 2020-10-29 13:14 | P.GSCN ---
History of Present Illness Consult date: 10/29/20 History of present illness: CHIEF COMPLAINT: Shortness of breath HISTORY OF PRESENT ILLNESS: This is a 75-year-old female with known history of non-small cell lung cancer, coronary artery disease with CABG in 2005 and cardiac stents, myocardial infarction, hypertension, and hypothyroidism. Patient presented to the hospital with shortness of breath and fever. Patient was diagnosed with septic shock secondary to MSSA sepsis and bacteremia. She is currently in the ICU. She was initially intubated on 10/19/2020 and required to be reintubated on 10/24/2020. Her transesophageal echo showed evidence of mitral vegetation and it is felt that was likely contributing to her bacteremia and endocarditis. Patient is currently on IV heparin for atrial fibrillation. She is on propofol and on norepinephrine. Patient failed weaning trial. Therefore consult was placed for surgery for tracheostomy and PEG tube placement. PAST MEDICAL HISTORY: See list. PAST SURGICAL HISTORY: See list. MEDICATIONS: See list. ALLERGIES: See list. SOCIAL HISTORY: No illicit drug use. REVIEW OF SYSTEMS: Patient is intubated and sedated PHYSICAL EXAM: VITAL SIGNS: Reviewed GENERAL: Well-developed in no acute distress. HEENT: No sclera icterus. Extraocular movements grossly intact. Moist buccal mucosa. Head is atraumatic, normocephalic. Hears conversational speech. No nasal drainage. NECK: Supple without lymphadenopathy. CHEST: Non-labored respirations and equal bilateral excursions. CARDIOVASCULAR: Regular rate with regular rhythm. Palpable 2+ radial pulses. ABDOMEN: Soft. Nondistended. Nontender MUSCULOSKELETAL: No clubbing or cyanosis. NEUROLOGIC: Intubated and sedated PSYCH: Appropriate affect. Alert and oriented to person, place and time. SKIN: Well perfused. Good skin turgor. LABORATORY DATA: WBC 7.8 hemoglobin 10.7 platelets 71 INR 1.4 Sodium 142 potassium is 3.8 creatinine 1.3 a glucose 229 AST 41 ALT 11 and alk phos 160 Albumin 2.1 IMAGING: transesophageal echo mitral valve heavily calcified with 1.0 x 1.1 cm mass adherent to the posterior leaflet. Given heavy calcification this may represent a healed vegetation. Attached to the mass is a more echogenic highly mobile 0.5 x 1.0 cm mass closer to the leaflet tips most consistent with vegetation. ASSESSMENT: 1. Acute hypoxic respiratory failure secondary to sepsis and septic shock due to MSSA bacteremia 2. 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 Severe protein calorie nutrition 4. Thrombocytopenia 5. Acute on chronic congestive heart failure with ischemic cardiac myopathy. EF of 2025% 6. Paroxysmal atrial fibrillation currently on IV heparin 7. History of coronary artery disease and previous CABG 8. Possible non-ST elevated AL on presentation was elevated troponins 9. Acute kidney injury 10. History of non-small cell lung cancer PLAN: -Anticipate tracheostomy and PEG tube placement early next week when Dr. Walsh is back in town -Continue ICU management -Continue supportive care -Continue antibiotics Thank you for this consultation Physician Court B[employer]iff Or Sheriff note has been reviewed by physician. Signing provider agrees with the documented findings, assessment, and plan of care. 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 Last Myocardial Infarction Date:: 2005 History of Any Multi-Drug Resistant Organisms: None Reported Past Surgical History: Adenoidectomy, Coronary Bypass/CABG, Heart Catheterization, Heart Catheterization With Stent, Tonsillectomy Additional Past Surgical History / Comment(s): L caratid endartectomy, PCI with multiple stents, 2005 CABG 3 vessels, colonoscopy, hemangioma removed from around mouth when a child Past Anesthesia/Blood Transfusion Reactions: No Reported Reaction, Motion Sickness Additional Past Anesthesia/Blood Transfusion Reaction / Comm: Daughter believes pt received blood with CABG surgery. Date of Last Stent Placement:: 2005 Past Psychological History: No Psychological Hx Reported Smoking Status: Former smoker Past Alcohol Use History: None Reported Past Drug Use History: None Reported - Past Family History Father Family Medical History: Cancer Additional Family Medical History / Comment(s): Father had prostrate cancer. Mother Family Medical History: Respiratory Disorder Additional Family Medical History / Comment(s): Mother had lung disease. Medications and Allergies Home Medications Medication Instructions Recorded Confirmed Type Atorvastatin [Lipitor] 40 mg PO DAILY 03/09/19 10/18/20 History Levothyroxine Sodium [Synthroid] 175 mcg PO DAILY 03/09/19 10/18/20 History Furosemide [Lasix] 20 mg PO DAILY PRN 06/17/19 10/18/20 History Insulin NPH Human Isophane 14 units SQ DAILY 06/17/19 10/18/20 History [NovoLIN N] Insulin NPH Human Isophane 16 units SQ HS 06/17/19 10/18/20 History [NovoLIN N] Insulin Regular, Human [NovoLIN R] See Protocol SQ AC-TID 06/17/19 10/18/20 History Spironolactone 12.5 mg PO DAILY 06/17/19 10/18/20 History Warfarin [Coumadin] 2.5 mg PO SUMOTUWETHSA@2100 06/17/19 10/18/20 History Clopidogrel [Plavix] 75 mg PO DAILY 10/18/20 10/18/20 History Ergocalciferol [Vitamin D2 (1250 1,250 mcg PO ESQUEDA 10/18/20 10/18/20 History Mcg = 96294 Iu)] Isosorbide Mononitrate ER [Imdur] 30 mg PO DAILY 10/18/20 10/18/20 History Losartan Potassium 100 mg PO DAILY 10/18/20 10/18/20 History Metoprolol Succinate (ER) [Toprol 100 mg PO DAILY 10/18/20 10/18/20 History Xl] Nitroglycerin Sl Tabs [Nitrostat] 0.4 mg SL Q5M PRN 10/18/20 10/18/20 History Allergies Allergy/AdvReac Type Severity Reaction Status Date / Time Penicillins Allergy Rash/Hives Verified 10/18/20 09:49 Surgical - Exam Vital Signs Temp Pulse Resp BP Pulse Ox 99.2 F 117 H 16 108/70 94 L 10/18/20 06:35 10/18/20 06:35 10/18/20 06:35 10/18/20 06:35 10/18/20 06:35 Results - Labs 10/29/20 04:55 10/29/20 04:55 Abnormal Lab Results - Last 24 Hours (Table) 10/28/20 10/28/20 10/28/20 Range/Units 17:05 17:36 23:45 RBC (3.80-5.40) m/uL Hgb (11.4-16.0) gm/dL Hct (34.0-46.0) % MCV (80.0-100.0) fL RDW (11.5-15.5) % Plt Count (150-450) k/uL Lymphocytes # (1.0-4.8) k/uL PT (9.0-12.0) sec INR (<1.2) APTT (22.0-30.0) sec ABG pO2 (83-108) mmHg Chloride (98-107) mmol/L Carbon Dioxide (22-30) mmol/L BUN (7-17) mg/dL Creatinine (0.52-1.04) mg/dL Glucose (74-99) mg/dL POC Glucose (mg/dL) 183 H 190 H 191 H (75-99) mg/dL Calcium (8.4-10.2) mg/dL AST (14-36) U/L Alkaline Phosphatase (38-126) U/L Total Protein (6.3-8.2) g/dL Albumin (3.5-5.0) g/dL 10/29/20 10/29/20 10/29/20 Range/Units 04:55 04:55 04:55 RBC 3.39 L (3.80-5.40) m/uL Hgb 10.7 L (11.4-16.0) gm/dL Hct 33.9 L (34.0-46.0) % MCV 100.1 H (80.0-100.0) fL RDW 16.7 H (11.5-15.5) % Plt Count 71 L (150-450) k/uL Lymphocytes # 0.7 L (1.0-4.8) k/uL PT (9.0-12.0) sec INR (<1.2) APTT 44.2 H (22.0-30.0) sec ABG pO2 (83-108) mmHg Chloride 113 H (98-107) mmol/L Carbon Dioxide 21 L (22-30) mmol/L BUN 57 H (7-17) mg/dL Creatinine 1.38 H (0.52-1.04) mg/dL Glucose 229 H (74-99) mg/dL POC Glucose (mg/dL) (75-99) mg/dL Calcium 8.0 L (8.4-10.2) mg/dL AST 41 H (14-36) U/L Alkaline Phosphatase 160 H (38-126) U/L Total Protein 5.4 L (6.3-8.2) g/dL Albumin 2.1 L (3.5-5.0) g/dL 10/29/20 10/29/20 10/29/20 Range/Units 04:55 05:31 06:05 RBC (3.80-5.40) m/uL Hgb (11.4-16.0) gm/dL Hct (34.0-46.0) % MCV (80.0-100.0) fL RDW (11.5-15.5) % Plt Count (150-450) k/uL Lymphocytes # (1.0-4.8) k/uL PT 13.9 H (9.0-12.0) sec INR 1.4 H (<1.2) APTT (22.0-30.0) sec ABG pO2 80 L (83-108) mmHg Chloride (98-107) mmol/L Carbon Dioxide (22-30) mmol/L BUN (7-17) mg/dL Creatinine (0.52-1.04) mg/dL Glucose (74-99) mg/dL POC Glucose (mg/dL) 233 H (75-99) mg/dL Calcium (8.4-10.2) mg/dL AST (14-36) U/L Alkaline Phosphatase (38-126) U/L Total Protein (6.3-8.2) g/dL Albumin (3.5-5.0) g/dL 10/29/20 Range/Units 11:30 RBC (3.80-5.40) m/uL Hgb (11.4-16.0) gm/dL Hct (34.0-46.0) % MCV (80.0-100.0) fL RDW (11.5-15.5) % Plt Count (150-450) k/uL Lymphocytes # (1.0-4.8) k/uL PT (9.0-12.0) sec INR (<1.2) APTT (22.0-30.0) sec ABG pO2 (83-108) mmHg Chloride (98-107) mmol/L Carbon Dioxide (22-30) mmol/L BUN (7-17) mg/dL Creatinine (0.52-1.04) mg/dL Glucose (74-99) mg/dL POC Glucose (mg/dL) 273 H (75-99) mg/dL Calcium (8.4-10.2) mg/dL AST (14-36) U/L Alkaline Phosphatase (38-126) U/L Total Protein (6.3-8.2) g/dL Albumin (3.5-5.0) g/dL Microbiology - Last 24 Hours (Table) 10/25/20 17:46 Blood Culture - Preliminary Blood No Growth after 72 hours 10/26/20 12:15 Blood Culture - Preliminary Blood No Growth after 48 hours 10/26/20 11:55 Blood Culture - Preliminary Blood No Growth after 48 hours Diabetes panel 10/29/20 Range/Units 04:55 Sodium 142 (137-145) mmol/L Potassium 3.8 (3.5-5.1) mmol/L Chloride 113 H (98-107) mmol/L Carbon Dioxide 21 L (22-30) mmol/L BUN 57 H (7-17) mg/dL Creatinine 1.38 H (0.52-1.04) mg/dL Glucose 229 H (74-99) mg/dL Calcium 8.0 L (8.4-10.2) mg/dL AST 41 H (14-36) U/L ALT 11 (4-34) U/L Alkaline Phosphatase 160 H (38-126) U/L Total Protein 5.4 L (6.3-8.2) g/dL Albumin 2.1 L (3.5-5.0) g/dL Calcium panel 10/29/20 Range/Units 04:55 Calcium 8.0 L (8.4-10.2) mg/dL Albumin 2.1 L (3.5-5.0) g/dL Pituitary panel 10/29/20 Range/Units 04:55 Sodium 142 (137-145) mmol/L Potassium 3.8 (3.5-5.1) mmol/L Chloride 113 H (98-107) mmol/L Carbon Dioxide 21 L (22-30) mmol/L BUN 57 H (7-17) mg/dL Creatinine 1.38 H (0.52-1.04) mg/dL Glucose 229 H (74-99) mg/dL Calcium 8.0 L (8.4-10.2) mg/dL Adrenal panel 10/29/20 Range/Units 04:55 Sodium 142 (137-145) mmol/L Potassium 3.8 (3.5-5.1) mmol/L Chloride 113 H (98-107) mmol/L Carbon Dioxide 21 L (22-30) mmol/L BUN 57 H (7-17) mg/dL Creatinine 1.38 H (0.52-1.04) mg/dL Glucose 229 H (74-99) mg/dL Calcium 8.0 L (8.4-10.2) mg/dL Total Bilirubin 1.1 (0.2-1.3) mg/dL AST 41 H (14-36) U/L ALT 11 (4-34) U/L Alkaline Phosphatase 160 H (38-126) U/L Total Protein 5.4 L (6.3-8.2) g/dL Albumin 2.1 L (3.5-5.0) g/dL
--- NOTE | 2020-10-29 14:01 | XR ---
EXAMINATION TYPE: XR chest 1V portable DATE OF EXAM: 10/29/2020 COMPARISON: 10/29/2020 HISTORY: Placement TECHNIQUE: Single frontal view of the chest is obtained. FINDINGS: Interval placement of left subclavian PICC terminating at the cavoatrial junction. An additional left subclavian catheter terminates in a similar location. Endotracheal tube is in unchanged position. There is unchanged elevation of the left hemidiaphragm. There is slight improved aeration of the righ t hemidiaphragm. Bibasilar pleural-parenchymal disease is present. There is unchanged opacity of the left lung apex. Cardiac silhouette is unchanged. Sternotomy changes are noted. IMPRESSION: 1. Interval placement of PICC. 2. Slight improved aeration of the right lung base.
--- NOTE | 2020-10-29 15:52 | IR ---
EXAMINATION TYPE: IR cvc insert >=5 years DATE OF EXAM: 10/29/2020 COMPARISON: NONE HISTORY: Sepsis, needs long-term intravenous access for therapy, antibiotics FINDINGS: Maximal barrier technique was utilized. Hand hygiene obtained with soap and water and alco hol-based hand rub. The skin overlying the left basilic vein was localized with ultrasound and noted to be compressible and patent by ultrasound. An ultrasound image was obtained [facility]. Sterile technique utilized with the ultrasound machine. The skin overlying was prepped an d draped and Lidocaine used for local anesthesia. A skin shaka was made with a scalpel. Access was g ained to the vein under direct ultrasound guidance with a 21-gauge needle and a 0.018 inch wire was a dvanced. Access site was dilated with a peel-away sheath and the catheter tailored to length. Bruna ter advanced centrally and a post procedure chest x-ray verified placement with tip at the superior v chon cava. Catheter was fixed to the skin and a sterile dressing placed. Hemostasis achieved and the catheter was aspirated and flushed with sterile saline. The patient remained in stable condition. IMPRESSION: STATUS POST ULTRASOUND GUIDED PICC LINE PLACEMENT, READY FOR USE. THIS PROCEDURE WAS PER FORMED BY THE UNDERSIGNED.
[2020-10-29 18:18] LABS: Glucose,Whole Blood 267 mg/dL (75-99)
[2020-10-29] MEDS: HEPARIN SOD,PORK IN 0.45% NACL 25,000 UNIT in 0.45% NACL 1 250ML.BAG IV SCH (20:00)
[2020-10-29] MEDS ORDERED: INSULIN DETEMIR (LEVEMIR) 100 UNIT/ML SYR SQ SCH (21:00)
--- NOTE | 2020-10-29 23:34 | PN ---
PROGRESS NOTE DATE OF SERVICE: 10/29/2020 REASON FOR FOLLOWUP: MSSA bacteremia secondary to mitral valve endocarditis. INTERVAL HISTORY: Patient remains to be afebrile. The patient is hemodynamically stable. Not on pressor support. FiO2 is currently 30%. No significant purulent secretions through the ET or diarrhea reported by nursing staff. PHYSICAL EXAMINATION: Blood pressure 118/53, pulse of 80, temperature 98.3. She is 98% on 30% FiO2. General description is an elderly female lying in bed in no distress. Respiratory system: Unlabored breathing, decreased breath sounds in the bases. No wheeze. Heart S1, S2. Regular rate and rhythm. Abdomen soft, no tenderness. Extremities: 1+ edema of feet. LABS: Hemoglobin is 10.1, white count 27.8. BUN of 57, creatinine 1.38. Blood culture repeat has been negative so far. DIAGNOSTIC IMPRESSION AND PLAN: Patient with MSSA bacteremia, source is mitral valve endocarditis with repeat blood culture negative. The patient's granddaughter had multiple questions, those were answered in layman's terms. Continue with cefazolin and monitor clinical course closely. MMODL / IJN: [id number] /
[2020-10-30 00:11] LABS: Glucose,Whole Blood 356 mg/dL (75-99)
[2020-10-30] MEDS: INSULIN ASPART (NovoLOG) 100 UNIT/ML VIAL SQ SCH ×5 (00:13→20:12)
[2020-10-30 05:35] LABS: ABG Base Excess -3.3 mmol/L; ABG HCO3 22 mmol/L (21-25); ABG PCO2 37 mmHg (35-45); ABG PH 7.38 (7.35-7.45); ABG PO2 84 mmHg (83-108); ABG TCO2 23 mmol/L (19-24); Allen Test Performed? Yes
[2020-10-30 05:51] LABS: Anisocytosis Slight; Basophils # (A) 0.1 k/uL (0-0.2); Basophils % (A) 0 %; Eosinophils # (A) 0.1 k/uL (0-0.7); Eosinophils % (A) 1 %; HCT 35.4 % (34.0-46.0); HGB 11.2 gm/dL (11.4-16.0); Hypochromasia Moderate; Lymphocytes # (A) 0.7 k/uL (1.0-4.8); Lymphocytes % (A) 6 %; MCH 31.9 pg (25.0-35.0); MCHC 31.5 g/dL (31.0-37.0); MCV 101.2 fL (80.0-100.0); Macrocytosis Slight; Mean Platelet Volume 11.6; Monocytes # (A) 0.3 k/uL (0-1.0); Monocytes % (A) 3 %; Neutrophils # (A) 9.6 k/uL (1.3-7.7); Neutrophils % (A) 88 %; RDW 17.3 % (11.5-15.5); WBC 10.9 k/uL (3.8-10.6)
[2020-10-30 06:05] LABS: Platelet Count 91 k/uL (150-450)
[2020-10-30 06:10] LABS: Calcium 8.4 mg/dL (8.4-10.2); Magnesium 1.7 mg/dL (1.6-2.3); Potassium 4.5 mmol/L (3.5-5.1)
[2020-10-30] MEDS: NOREPINEPHRINE 8 MG in SODIUM CHLORIDE 0.9% 250 ML IV SCH ×3 (06:37→14:57)
[2020-10-30 07:03] LABS: Glucose,Whole Blood 326 mg/dL (75-99)
--- NOTE | 2020-10-30 07:16 | XR ---
EXAMINATION TYPE: XR chest 1V portable DATE OF EXAM: 10/30/2020 COMPARISON: 10/29/2020 HISTORY: Tube placement TECHNIQUE: Single frontal view of the chest is obtained. FINDINGS: Lines and tubes are unchanged. No significant change in elevation of the left hemidiaphragm and opacity left paramediastinal region with unchanged opacity at the left lung apex. Sternotomy changes are noted. IMPRESSION: No significant change since the prior exam.
[2020-10-30] MEDS: HEPARIN SODIUM 1,000 UN/ML (10ML VL) IV PRN (08:08)
[2020-10-30] MEDS: INSULIN DETEMIR (LEVEMIR) 100 UNIT/ML SYR SQ SCH ×2 (08:12→20:12)
[2020-10-30] MEDS: LEVOTHYROXINE 88 MCG TAB PO SCH (08:16)
[2020-10-30] MEDS: PANTOPRAZOLE 40 MG/10 ML VIAL IVP SCH (08:16)
[2020-10-30] MEDS: CHLORHEXIDINE GLUCONATE 15 ML CUP MUCOUS MEM SCH ×2 (08:16→20:29)
[2020-10-30] MEDS: HEPARIN SOD,PORK IN 0.45% NACL 25,000 UNIT in 0.45% NACL 1 250ML.BAG IV SCH (08:17)
[2020-10-30] MEDS ORDERED: Magnesium Replacement Protocol 1 EACH MISC MISCELLANE PRN (08:42)
[2020-10-30] MEDS ORDERED: FUROSEMIDE 10 MG/ML 4 ML VIAL IV STA (08:46)
[2020-10-30] MEDS: FUROSEMIDE 10 MG/ML 4 ML VIAL IV SCH ×2 (09:07→20:29)
--- NOTE | 2020-10-30 09:09 | P.PN ---
Subjective Patient is seen in follow-up for acute kidney injury. Renal function fairly stable. Intubated. Receiving tube feeding. Remains on Levophed. Urine output 20-40 mL an hour. Does improve with IV Lasix. Vital signs: Stable. On low-dose vasopressor support. HEENT: Intubated. LUNGS: Breath sounds decreased. HEART: Regular rhythm. ABDOMEN: Soft, obese. EXTREMITITES: 1+ edema. Objective - Vital Signs Vital signs: Vital Signs Temp 98 F 10/30/20 04:00 Pulse 85 10/30/20 08:00 Resp 26 H 10/30/20 08:00 BP 78/64 10/29/20 15:15 Pulse Ox 98 10/30/20 08:00 Intake & Output 10/29/20 10/30/20 10/30/20 18:59 06:59 18:59 Intake Total 2185.643 2227.398 710.676 Output Total 597 466 76 Balance 2989.408 1004.398 634.676 Weight 122.8 kg Intake: IV 350 366 119 0.9 pressure bag 33 36 9 CVP Flush 27 Sodium Chloride 0.9% 1, 240 230 60 000 ml @ 20 mls/hr IV . Q24H [facility] Rx#:[id number] ceFAZolin 2 gm In Sodium 100 50 Chloride 0.9% 50 ml @ 100 mls/hr IVPB Q12HR [facility] Rx #:[id number] ceFAZolin 2 gm In Sodium 50 Chloride 0.9% 50 ml @ 100 mls/hr IVPB Q8HR [facility] Rx# :[id number] Intake, IV Titration 352.643 507.398 117.676 Amount Heparin Sod,Pork in 0.45% 150.953 84.021 NaCl 25,000 unit In 0.45 % NaCl 1 250ml.bag @ 9.22 UNITS/KG/HR 10.004 mls/ hr IV .Q24H [facility] Rx#: [id number] Norepinephrine 8 mg In 252.643 173.432 21.866 Sodium Chloride 0.9% 250 ml @ 0.2 MCG/KG/MIN 43. 731 mls/hr IV .Q5H54M [facility] Rx#:[id number] propofoL 1,000 mg In 100.000 183.013 11.789 Empty Bag 1 bag @ Titrate IV .Q0M [facility] Rx#: [id number] Tube Feeding 425 164 174 TPN/PPN 3 0.9 pressure bag 3 Other 900 600 300 Output: Urine 597 466 76 Other: Voiding Method Indwelling Catheter Indwelling Catheter ABP, PAP, CO, CI - Last Documented Arterial Blood Pressure 132/75 - Labs CBC & Chem 7: 10/30/20 05:30 10/30/20 05:30 Labs: Abnormal Lab Results - Last 24 Hours (Table) 10/29/20 10/29/20 10/29/20 Range/Units 04:55 11:30 17:45 WBC (3.8-10.6) k/uL RBC (3.80-5.40) m/uL Hgb (11.4-16.0) gm/dL MCV (80.0-100.0) fL RDW (11.5-15.5) % Plt Count (150-450) k/uL Neutrophils # (1.3-7.7) k/uL Lymphocytes # (1.0-4.8) k/uL PT 13.9 H (9.0-12.0) sec INR 1.4 H (<1.2) APTT (22.0-30.0) sec Chloride (98-107) mmol/L Carbon Dioxide (22-30) mmol/L BUN (7-17) mg/dL Creatinine (0.52-1.04) mg/dL Glucose (74-99) mg/dL POC Glucose (mg/dL) 273 H 267 H (75-99) mg/dL 10/30/20 10/30/20 10/30/20 Range/Units 00:10 05:30 05:30 WBC 10.9 H (3.8-10.6) k/uL RBC 3.50 L (3.80-5.40) m/uL Hgb 11.2 L (11.4-16.0) gm/dL MCV 101.2 H (80.0-100.0) fL RDW 17.3 H (11.5-15.5) % Plt Count 91 L (150-450) k/uL Neutrophils # 9.6 H (1.3-7.7) k/uL Lymphocytes # 0.7 L (1.0-4.8) k/uL PT (9.0-12.0) sec INR (<1.2) APTT 37.0 H (22.0-30.0) sec Chloride (98-107) mmol/L Carbon Dioxide (22-30) mmol/L BUN (7-17) mg/dL Creatinine (0.52-1.04) mg/dL Glucose (74-99) mg/dL POC Glucose (mg/dL) 356 H (75-99) mg/dL 10/30/20 10/30/20 Range/Units 05:30 07:01 WBC (3.8-10.6) k/uL RBC (3.80-5.40) m/uL Hgb (11.4-16.0) gm/dL MCV (80.0-100.0) fL RDW (11.5-15.5) % Plt Count (150-450) k/uL Neutrophils # (1.3-7.7) k/uL Lymphocytes # (1.0-4.8) k/uL PT (9.0-12.0) sec INR (<1.2) APTT (22.0-30.0) sec Chloride 112 H (98-107) mmol/L Carbon Dioxide 21 L (22-30) mmol/L BUN 61 H (7-17) mg/dL Creatinine 1.50 H (0.52-1.04) mg/dL Glucose 344 H (74-99) mg/dL POC Glucose (mg/dL) 326 H (75-99) mg/dL Microbiology - Last 24 Hours (Table) 10/29/20 14:20 Catheter Tip Culture - Preliminary Catheter Tip 10/25/20 17:46 Blood Culture - Preliminary Blood No Growth after 96 hours 10/26/20 12:15 Blood Culture - Preliminary Blood No Growth after 72 hours 10/26/20 11:55 Blood Culture - Preliminary Blood No Growth after 72 hours Assessment and Plan Plan: Assessment: 1. Acute kidney injury secondary to ATN secondary to hypotension and sepsis. Renal function fairly stable. Creatinine 1.51 today. 2. MSSA bacteremia maintained on antibiotics. 3. Metabolic acidosis secondary to acute kidney injury, lactic acidosis. Partially also compensatory for respiratory alkalosis. Stable. 4. Acute hypoxic respiratory failure. 5. History of non-small cell lung cancer. 6. Chronic systolic CHF with ejection fraction of 20-25%. 7. Hypernatremia from lack of oral water intake. Improved. Plan: Continue with IV Lasix. Maintain tube feeding. Decrease free water flushes to 300 mL every 6 hours. Wean FiO2 and vasopressors. Continue to monitor renal function and urine output. Replace magnesium.
[2020-10-30] MEDS ORDERED: ATROPINE SULFATE 0.1 MG/ML 10ML SYRINGE ONE (09:52)
[2020-10-30] MEDS ORDERED: MAGNESIUM SULFATE-D5W PMX 1 GM in DEXTROSE/WATER 1 100ML.BAG IVPB ONE (10:00)
--- NOTE | 2020-10-30 11:18 | P.PN ---
Subjective Progress Note Date: 10/30/20 Principal diagnosis: Acute hypoxic respiratory failure secondary to Septic shock secondary to MSSA sepsis and bacteremia. 10/25/2020, the patient is intubated again.I had to intubate the patient again because of hemodynamic instability, hypotension, metabolic acidosis, and altered mentation. As stated earlier, recurrent bouts of sepsis was suspected as the patient was becoming hypotensive, tachycardic and she has also developed worsening and leukocytosis. For that reason, the patient was given IV fluids and she was aggressively resuscitated IV fluids received a total of 60-70 fluids yesterday and the net fluid balance is +9.5 L over the past 24 hours. Also, the patient was broadened in terms of her antibiotic coverage and she was placed on a combination of cefepime and vancomycin. Repeat cultures are still pending for now. Pro-calcitonin is still downtrending and is down to 3.19. Note that the lactic acid came as high as 7.9 and currently down to 2.5. This morning, the patient is intubated on a mechanical ventilator. the patient is well sedated with propofol which is running at 50 mics per kilogram per minute. The patient At this point in time she is an assist-control mode at the rate of 26 with a tidal volume of 500 and FiO2 of 50% with a PEEP of 5. Blood gases from today showed a pH of 7.51 with a pCO2 of 24 and pO2 182. the patient is quite hyp otensive still. Pressor requirements has fluctuated throughout the day yesterday. Note that she has advanced cardiomyopathy with ejection fraction of 20-25%. Currently, norepinephrine has been weaned down to 0.2 mcg/kg per minute.Chest x-ray showing some slight increase in the left-sided pleural effusion. Is also left suprahilar opacity consistent with previous history of non-small cell lung cancer. White cell count peaked at 20.9 and it dropped down to 13.9. She remains in atrial fibrillation. Heart is less tachycardic. Noted the patient also developed an acute kidney injury. Creatinine was as high as 1.5 along with lactic acidosis. The patient was given bicarb infusion and the creatinine today is at 1.46. Lactic acid level is improving. Urine output is fluctuating,, currently she is producing somewhere between 5-30 mL an hour of urine output. She remains on IV heparin. Platelet counts have been stable, and the patient is also On IV heparin.I'm seeing this patient along with various consultants from cardiology, nephrology and infectious disease. Patient was reevaluated today on 10/26/2020, patient was reintubated on the although she was extubated on the , and remains on mechanical ventilation again since the . She is presently on assist control rate of 26 tidal volume is 400 FiO2 is 40% PEEP of 5. ABG showed a pO2 of 145 and I was on 50% pCO2 of 32 pH of 7.43 hence the FiO2 was decreased down to 40%. Patient is on multiple drips including propofol and 50 but granted per kilo per minute, she is also on heparin and IV fluid at 0.9 mL 100 mL per hour. Current down to 50 mL per hour. Blood cultures have been positive intermittently for MSSA patient remains on cefepime and on vancomycin. Looking back at the chart patient was intubated initially on 10/19 extubated on 10/22 reintubated on 10/24. Her last echocardiogram showed poor LV function with ejection fraction of 20-25% at best. Patient is receiving tube feeding/Glucerna at 40 ML's per hour. She is not requiring any norepinephrine at this point. Blood pressure seems to be relatively stable, patient is in atrial fibrillation with controlled rate of 80. Looking back at the chart she had initial presentation of sepsis and mild DKA. Labs today showed relatively normal CBC with WBC count of 8.3 hemoglobin 11.8. PTT is 56. Platelets are 98,000. Sodium is 146 potassium 3.9 chloride 116 bicarb is 20 BUN is 56 creatinine 1.37. Last blood culture from the was positive, and the one from the is negative so far. Left paramediastinal mass remains about the same. Patient was reevaluated today on 10/27/2020, patient remains in the ICU, intubated and mechanically ventilated. No major private branch exchange service advisor the last 24 hours. Patient remains sedated, she is on propofol at 30 mcg/kg/m, she is requiring norepinephrine at 0.09 and we increased it to 0.1 mcg/kg/m, held her propofol and we were trying to assess her mental status. Her assist-control rate is 26, volume 400 FiO2 40% PEEP of 5 her peak airway pressure is 29 plateau pressure is 21 patient is on IV fluid at 20 mL per hour, she is also on heparin. Her most recent blood cultures are negative so far. Patient is in atrial fibrillation with controlled rate. She is being treated for MSSA bacteremia. Remains on an tibiotics in the form of vancomycin and cefepime. Today the patient was awakened but did not seem to do well with a trial of weaning trying to pressure support of 14 and CPAP. Continue to have very shallow reading and mentally was not appropriate enough to proceed with further weaning trials. Hence placed back on assist control mode of mechanical ventilation. Asked x-ray continues to show evidence of bilateral interstitial infiltrates/edema. WBC count is 8.6 hemoglobin is 10.7 PTT is 53.9 ABG showed a pO2 of 100 pCO2 of 33 pH of 7.43 electrolytes showed sodium 146 chloride is 117 bicarb 22 BUN 57 creatinine 1.49 Reevaluated today on 10/28/20, remains intubated and mechanically ventilated. Patient is on assist control rate of 26 tidal volume 400 FiO2 30% PEEP of 5. EEG showed a pO2 of 123 pCO2 33 pH of 7.45. Remains on propofol at 10 mcg/kg/m and on norepinephrine at 0.08 mcg/kg/m. Patient is scheduled to undergo CRISTIANO today. Mostly trying to rule out endocarditis as the patient had multiple blood cultures positive for MSSA. Blood cultures in the last 2 days have been negativ e. Patient is now on Kefzol chest x-ray continues to show left hemidiaphragm elevation, and bilateral pleural parenchymal disease with patchy airspace disease bilaterally unchanged significantly. CBC is relatively normal WBC count is 6.6 hemoglobin is 10.7. PTT is 49.8. Electrolytes are normal BUN is 56 creatinine 1.47. Patient had issues with low urine output last night, given 500 mL of fluid bolus, urine output remains about 3 0 mL per hour, and she was given Lasix earlier today by nephrology. Not much of a change in her urine output so far. Patient was reevaluated today on 10/29/2020, remains in the ICU, intubated and mechanically ventilated. Her transesophageal echocardiogram clearly showed evidence of mitral vegetations, and the source of her MSSA bacteremia seems to be related to ongoing endocarditis. Patient is on assist control rate of 26 tidal volume is 400 FiO2 30% PEEP of 5. She is on heparin for atrial fibrillation, rate is 120 today. She remains on norepinephrine at 0.08. She is off propofol this morning to assess whether the patient could wean, however a short trial of pressure support of 14 and CPAP clearly demonstrated that the patient is not amenable. She had very small tidal volumes and her rate went up as high as 40. I recommended that she goes back on assist control mode of mechanical ventilation. I'm also recommending tracheostomy and PEG tube placement in this patient. Her ABG today showed a pO2 of 80, pCO2 37 pH of 7.40 and this was on the vent settings as noted above. Electrolytes are normal BUN is 57 creatinine 1.38. WBC count is 7.8 hemoglobin is 10.7. Patient had negative blood cultures for the last 2 or 3 days. Remains on cefazolin. Chest x-ray continues to show significant elevated left hemidiaphragm. And haziness in the bases with small pleural effusions consistent with mild congestive heart failure underlying pneumonia is not entirely ruled out but felt to be less likely Patient was reevaluated today on 10/30/2020, remains in the ICU, intubated and mechanically ventilated. She is on assist control rate of 26 tv 400 FiO2 is 30% PEEP of 5. ABG showed a pO2 of 84 pCO2 37 pH of 7.38. Remains on propofol at 20 mcg/kg/m, she is on heparin. Patient is mostly being treated for MSSA endocarditis. And she has what seems to be some component of interstitial edema and left hemidiaphragm paralysis. Tried weaning, patient could not be weaned, hence I recommended tracheostomy PEG tube placement. She really had a PICC line placed yesterday, and cultures for in the last few days have been negative. 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 She is on enteral feeding using vital HP At 58 mL per hour. Patient is also receiving free water, 200 mL via nasogastric tube every 6 hours. I did recommend Lasix today 40 mg IV push every 12 hours, as her chest x-ray is showing some evidence of mild edema. And the patient is quite swollen and edematous. Patient continues to have a left brachial arterial line in place, and she had a left PICC line placed yesterday. Really status 10.9 hemoglobin is 11.2 PTT is 37. Objective - Vital Signs Vital signs: Vital Signs Temp 97.5 F L 10/30/20 09:00 Pulse 81 10/30/20 11:00 Resp 31 H 10/30/20 11:00 BP 78/64 10/29/20 15:15 Pulse Ox 94 L 10/30/20 11:00 Intake & Output 10/29/20 10/30/20 10/30/20 18:59 06:59 18:59 Intake Total 2185.643 2227.398 914.241 Output Total 597 466 141 Balance 8679.607 8313.398 773.241 Weight 122.8 kg 122.8 kg Intake: IV 350 366 165 0.9 pressure bag 33 36 15 CVP Flush 27 Sodium Chloride 0.9% 1, 240 230 100 000 ml @ 20 mls/hr IV . Q24H [facility] Rx#:[id number] ceFAZolin 2 gm In Sodium 100 50 Chloride 0.9% 50 ml @ 100 mls/hr IVPB Q12HR [facility] Rx #:[id number] ceFAZolin 2 gm In Sodium 50 Chloride 0.9% 50 ml @ 100 mls/hr IVPB Q8HR [facility] Rx# :[id number] Intake, IV Titration 352.643 507.398 159.241 Amount Heparin Sod,Pork in 0.45% 150.953 84.021 NaCl 25,000 unit In 0.45 % NaCl 1 250ml.bag @ 9.22 UNITS/KG/HR 10.004 mls/ hr IV .Q24H [facility] Rx#: [id number] Norepinephrine 8 mg In 252.643 173.432 49.125 Sodium Chloride 0.9% 250 ml @ 0.2 MCG/KG/MIN 43. 731 mls/hr IV .Q5H54M [facility] Rx#:[id number] propofoL 1,000 mg In 100.000 183.013 26.095 Empty Bag 1 bag @ Titrate IV .Q0M [facility] Rx#: [id number] Tube Feeding 580 754 290 TPN/PPN 3 0.9 pressure bag 3 Other 900 600 300 Output: Urine 597 466 141 Other: Voiding Method Indwelling Catheter Indwelling Catheter Indwelling Catheter ABP, PAP, CO, CI - Last Documented Arterial Blood Pressure 96/55 - Exam Physical Exam: Revealed 75-year-old female intubated and mechanically ventilated. Sedated, on propofol Head: Atraumatic, normocephalic. Endotracheal tube and orogastric tube are intact. HEENT:[Neck is supple.] [No neck masses.] [No thyromegaly.] [No JVD.] PERRLA, EOMI, nonicteric, moist mucous membranes. Chest: [Symmetrical chest expansion, crackles persist at the base. Cardiac Exam: [Irregular irregular rhythm. Normal S1 and S2, no S3 gallop, 2/6 systolic murmur thought the precordium. Abdomen: [Soft, nontender, no megaly, no rebound, no guarding, normal bowel sounds.] Extremities: [No clubbing, 2+ bipedal edema, no cyanosis.] Diminished distal pulses bilaterally Neurological Exam: Could not assess as the patient is on propofol, fully sedated. Psychiatric: Could not assess patient is on propofol.. Skin: Multiple areas of bruises, and ecchymosis - Labs CBC & Chem 7: 10/30/20 05:30 10/30/20 05:30 Labs: Abnormal Lab Results - Last 24 Hours (Table) 10/29/20 10/29/20 10/29/20 Range/Units 04:55 11:30 17:45 WBC (3.8-10.6) k/uL RBC (3.80-5.40) m/uL Hgb (11.4-16.0) gm/dL MCV (80.0-100.0) fL RDW (11.5-15.5) % Plt Count (150-450) k/uL Neutrophils # (1.3-7.7) k/uL Lymphocytes # (1.0-4.8) k/uL PT 13.9 H (9.0-12.0) sec INR 1.4 H (<1.2) APTT (22.0-30.0) sec Chloride (98-107) mmol/L Carbon Dioxide (22-30) mmol/L BUN (7-17) mg/dL Creatinine (0.52-1.04) mg/dL Glucose (74-99) mg/dL POC Glucose (mg/dL) 273 H 267 H (75-99) mg/dL 10/30/20 10/30/20 10/30/20 Range/Units 00:10 05:30 05:30 WBC 10.9 H (3.8-10.6) k/uL RBC 3.50 L (3.80-5.40) m/uL Hgb 11.2 L (11.4-16.0) gm/dL MCV 101.2 H (80.0-100.0) fL RDW 17.3 H (11.5-15.5) % Plt Count 91 L (150-450) k/uL Neutrophils # 9.6 H (1.3-7.7) k/uL Lymphocytes # 0.7 L (1.0-4.8) k/uL PT (9.0-12.0) sec INR (<1.2) APTT 37.0 H (22.0-30.0) sec Chloride (98-107) mmol/L Carbon Dioxide (22-30) mmol/L BUN (7-17) mg/dL Creatinine (0.52-1.04) mg/dL Glucose (74-99) mg/dL POC Glucose (mg/dL) 356 H (75-99) mg/dL 10/30/20 10/30/20 Range/Units 05:30 07:01 WBC (3.8-10.6) k/uL RBC (3.80-5.40) m/uL Hgb (11.4-16.0) gm/dL MCV (80.0-100.0) fL RDW (11.5-15.5) % Plt Count (150-450) k/uL Neutrophils # (1.3-7.7) k/uL Lymphocytes # (1.0-4.8) k/uL PT (9.0-12.0) sec INR (<1.2) APTT (22.0-30.0) sec Chloride 112 H (98-107) mmol/L Carbon Dioxide 21 L (22-30) mmol/L BUN 61 H (7-17) mg/dL Creatinine 1.50 H (0.52-1.04) mg/dL Glucose 344 H (74-99) mg/dL POC Glucose (mg/dL) 326 H (75-99) mg/dL Microbiology - Last 24 Hours (Table) 10/29/20 14:20 Catheter Tip Culture - Preliminary Catheter Tip 10/25/20 17:46 Blood Culture - Preliminary Blood No Growth after 96 hours 10/26/20 12:15 Blood Culture - Preliminary Blood No Growth after 72 hours 10/26/20 11:55 Blood Culture - Preliminary Blood No Growth after 72 hours Assessment and Plan Assessment: Impression: Acute hypoxic respiratory failure secondary to sepsis and septic shock secondary to MSSA bacteremia secondary to endocarditis. Septic shock on presentation. Associated with hypotension although the possibility of cardiogenic shock is not entirely ruled out considering the patient has a very poor ejection fraction of 20-25%. Coronary artery disease and previous CABG. Bacteremia secondary to acute endocarditis. Refer to the results of the PEEP Possible non-ST elevation myocardial infarction on presentation with elevated troponin levels. Paroxysmal atrial fibrillation. History of non-small cell lung cancer stage IIIB status post chemoradiation therapy. Last PET scan was in August of 2020. Left perihilar mass is noted on chest x-ray. Bilateral pleural effusions secondary to systolic congestive heart failure, acute on chronic. Acute shock liver, resolved. Acute kidney injury secondary to acute tubular necrosis and possible cardiorenal syndrome on her initial presentation. Improved with fluid resuscitation. Acute on chronic congestive heart failure secondary to ischemic cardiomyopathy and LV dysfunction with ejection fraction of 20-25%. Thrombocytopenia, exact etiology is not clear, improving could very well be related to sepsis. Platelets today are 91,000. Failure to wean in spite of having the patient on pressure support of 14 and CPAP. We'll continue weaning trials daily. And sedation interruption daily, in the meantime we'll consult surgery for possible tracheostomy and PEG tube placement next week. 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 Recommendation: Continue ventilatory support. Daily trials of breathing but I have a feeling that the patient will be impossible to wean. Consult surgery for tracheostomy and PEG tube placement Continue antibiotics patient is now on cefazolin for MSSA bacteremia. Continue to monitor blood cultures. Continue GI and DVT prophylaxis. Continue Nutritional support, enteral feeding. Continue to monitor platelets Continue hemodynamic support, remains on a small dose of norepinephrine. Continue to monitor daily labs and x-rays. Continue insulin as per protocol. Continue ICU management. Daily interruption of sedation and possibly even weaning trials on a daily basis Patient is critically ill, critical care time is over 30 minutes. Time with Patient: Greater than 30
[2020-10-30 11:40] LABS: Glucose,Whole Blood 419 mg/dL (75-99)
--- NOTE | 2020-10-30 11:41 | PN ---
PROGRESS NOTE HISTORY: Mrs. Green has what seems to be mitral valve endocarditis on antibiotics. Hemodynamically, she is about the same. Less Levophed is being used. Urine output is fair. She remains in atrial fib, controlled rate. PHYSICAL EXAM: Blood pressure is about 120/70, pulse rate is in the 80s. JVD 1 cm, no carotid bruit. S1, S2 with a short systolic murmur is audible. Lungs reveal ventilator assisted breath sounds. Abdomen is soft. Lower extremities reveal diminished pulses. Central nervous system assessment was not performed. The patient was taken off her sedation and weaning efforts were made yesterday but these were unsuccessful. Dr. Johnson may attempt another weaning trial today, although patient has significant lung issues with lung cancer and prognosis remains poor regarding ability to wean. We will continue to follow her. Prognosis remains poor. MMODL / IJN: [id number] /
--- NOTE | 2020-10-30 11:42 | P.PN ---
Subjective Progress Note Date: 10/30/20 Patient is on sedation vacation today. She is awake and following commands. She still requiring norepinephrine currently on 0.09. No acute events overnight reported by nursing staff Objective - Vital Signs Vital signs: Vital Signs Temp 97.5 F L 10/30/20 09:00 Pulse 81 10/30/20 11:00 Resp 31 H 10/30/20 11:00 BP 78/64 10/29/20 15:15 Pulse Ox 94 L 10/30/20 11:00 Intake & Output 10/29/20 10/30/20 10/30/20 18:59 06:59 18:59 Intake Total 2185.643 2227.398 920.837 Output Total 597 466 141 Balance 9551.753 4213.398 779.837 Weight 122.8 kg 122.8 kg Intake: IV 350 366 165 0.9 pressure bag 33 36 15 CVP Flush 27 Sodium Chloride 0.9% 1, 240 230 100 000 ml @ 20 mls/hr IV . Q24H [facility] Rx#:[id number] ceFAZolin 2 gm In Sodium 100 50 Chloride 0.9% 50 ml @ 100 mls/hr IVPB Q12HR [facility] Rx #:[id number] ceFAZolin 2 gm In Sodium 50 Chloride 0.9% 50 ml @ 100 mls/hr IVPB Q8HR [facility] Rx# :[id number] Intake, IV Titration 352.643 507.398 165.837 Amount Heparin Sod,Pork in 0.45% 150.953 84.021 NaCl 25,000 unit In 0.45 % NaCl 1 250ml.bag @ 9.22 UNITS/KG/HR 10.004 mls/ hr IV .Q24H [facility] Rx#: [id number] Norepinephrine 8 mg In 252.643 173.432 55.721 Sodium Chloride 0.9% 250 ml @ 0.2 MCG/KG/MIN 43. 731 mls/hr IV .Q5H54M [facility] Rx#:[id number] propofoL 1,000 mg In 100.000 183.013 26.095 Empty Bag 1 bag @ Titrate IV .Q0M [facility] Rx#: [id number] Tube Feeding 580 754 290 TPN/PPN 3 0.9 pressure bag 3 Other 900 600 300 Output: Urine 597 466 141 Other: Voiding Method Indwelling Catheter Indwelling Catheter Indwelling Catheter ABP, PAP, CO, CI - Last Documented Arterial Blood Pressure 96/55 - Exam General: The patient is sedated and intubated Eye: there is normal conjunctiva bilaterally. Neck: The neck is supple, there is no JVD. Cardiovascular: Normal S1-S2, no S3-S4, no murmurs. Respiratory: Lungs clear to auscultation bilaterally Gastrointestinal: Abdomen is soft, nontender Musculoskeletal: There is no pedal edema. Skin: Skin is warm and dry - Labs CBC & Chem 7: 10/30/20 05:30 10/30/20 05:30 Labs: Abnormal Lab Results - Last 24 Hours (Table) 10/29/20 10/30/20 10/30/20 Range/Units 17:45 00:10 05:30 WBC 10.9 H (3.8-10.6) k/uL RBC 3.50 L (3.80-5.40) m/uL Hgb 11.2 L (11.4-16.0) gm/dL MCV 101.2 H (80.0-100.0) fL RDW 17.3 H (11.5-15.5) % Plt Count 91 L (150-450) k/uL Neutrophils # 9.6 H (1.3-7.7) k/uL Lymphocytes # 0.7 L (1.0-4.8) k/uL APTT (22.0-30.0) sec Chloride (98-107) mmol/L Carbon Dioxide (22-30) mmol/L BUN (7-17) mg/dL Creatinine (0.52-1.04) mg/dL Glucose (74-99) mg/dL POC Glucose (mg/dL) 267 H 356 H (75-99) mg/dL 10/30/20 10/30/20 10/30/20 Range/Units 05:30 05:30 07:01 WBC (3.8-10.6) k/uL RBC (3.80-5.40) m/uL Hgb (11.4-16.0) gm/dL MCV (80.0-100.0) fL RDW (11.5-15.5) % Plt Count (150-450) k/uL Neutrophils # (1.3-7.7) k/uL Lymphocytes # (1.0-4.8) k/uL APTT 37.0 H (22.0-30.0) sec Chloride 112 H (98-107) mmol/L Carbon Dioxide 21 L (22-30) mmol/L BUN 61 H (7-17) mg/dL Creatinine 1.50 H (0.52-1.04) mg/dL Glucose 344 H (74-99) mg/dL POC Glucose (mg/dL) 326 H (75-99) mg/dL 10/30/20 Range/Units 11:28 WBC (3.8-10.6) k/uL RBC (3.80-5.40) m/uL Hgb (11.4-16.0) gm/dL MCV (80.0-100.0) fL RDW (11.5-15.5) % Plt Count (150-450) k/uL Neutrophils # (1.3-7.7) k/uL Lymphocytes # (1.0-4.8) k/uL APTT (22.0-30.0) sec Chloride (98-107) mmol/L Carbon Dioxide (22-30) mmol/L BUN (7-17) mg/dL Creatinine (0.52-1.04) mg/dL Glucose (74-99) mg/dL POC Glucose (mg/dL) 419 H (75-99) mg/dL Microbiology - Last 24 Hours (Table) 10/29/20 14:20 Catheter Tip Culture - Preliminary Catheter Tip 10/25/20 17:46 Blood Culture - Preliminary Blood No Growth after 96 hours 10/26/20 12:15 Blood Culture - Preliminary Blood No Growth after 72 hours 10/26/20 11:55 Blood Culture - Preliminary Blood No Growth after 72 hours Assessment and Plan Assessment: This is a 75-year-old female with past medical history significant for left lung cancer now in remission that presented to the emergency room with fevers. Patient was evaluated in the ER and admitted to the hospital for further management of her medical problems noted below. 1. Severe sepsis with septic shock, treated with aggressive IV fluid hydration and antibiotic. Required vasopressors till 10/22 then again on 10/24. 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 Influenza, Covid-19, and C. diff screen negative 2. MSSA bacteremia, blood culture cleared on for a few days but turned back positive on 10/24. Patient has been on antibiotics since admission transitioned from cefazolin to vancomycin and cefepime and now back to cefazolin. Blood culture on 10/25 negative to date. Infectious disease following closely 3. Severe sepsis with septic shock secondary to underlying acute endocarditis 4. Acute kidney injury, oliguric. hyperkalemia: Resolved. Avoid nephrotoxins. Nephrology consulted for further evaluation. 5. Acute respiratory failure requiring sedation and mechanical intubation successfully extubated and then reintubated on 10/24 5. Metabolic acidosis secondary to above 6. Liver shock with coagulopathy secondary to hypotension. Liver enzymes trending now 7. Troponin elevation, non-thrombotic troponin leak secondary to severe sepsis. Cardiology consulted for further evaluation. Echocardiogram showed EF of 20- 25% 8. Chronic atrial fibrillation on anticoagulation with Coumadin, Currently on IV heparin will continue to monitor for thrombocytopenia 9. Chronic congestive heart failure, systolic. Lasix 40 mg daily ordered 10. History of lung cancer in remission 11. Thrombocytopenia: Probably secondary to critical illness and underlying sepsis. Platelet count stabilized. We will continue to monitor closely. 12. Type 2 diabetes, continue current dose of Levemir plus sliding scale. Today, I reviewed her medication list and lab work results Cardiology recommended conservative management and IV antibiotic for underlying endocarditis Plan for PEG tube and tracheostomy awaiting general surgery evaluation tube feeding per dietitian Overall prognosis guarded Daughter bedside was updated
[2020-10-30] MEDS ORDERED: INSULIN DETEMIR (LEVEMIR) 100 UNIT/ML SYR SQ ONE (12:30)
--- NOTE | 2020-10-30 16:40 | PN ---
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 INTERVAL HISTORY: Patient is afebrile. The patient remains to be intubated on the vent. FiO2 is currently at 30%. No significant purulent secretions thru the ET or any diarrhea or any other changes reported by nursing staff. PHYSICAL EXAMINATION: Blood pressure 125/60 with a pulse of 74, temperature 97.5. He is 95% on 30% FiO2. General description is an elderly female intubated on the vent. Respiratory system: Unlabored breathing, decreased breath sounds in the bases. No wheeze. Heart S1, S2. Regular rate. Abdomen: Soft, no tenderness. LABS: Hemoglobin is 11.1, white count 10.9, BUN of 61, creatinine 1.50. Blood culture repeat has been negative. Catheter tip culture is pending. 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 Repeat culture has been negative so far. Patient is covered with cefazolin to continue while monitoring clinical course closely. Continue supportive care. MMODL / IJN: [id number] /
[2020-10-30 17:56] LABS: Glucose,Whole Blood 403 mg/dL (75-99)
--- NOTE | 2020-10-30 19:13 | P.PN ---
Subjective Progress Note Date: 10/30/20 No new changes. Patient is on vent unable to wean. Trach and PEG advised. Objective - Vital Signs Vital signs: Vital Signs Temp 97.5 F L 10/30/20 16:00 Pulse 65 10/30/20 19:00 Resp 28 H 10/30/20 19:00 BP 108/77 10/30/20 16:00 Pulse Ox 98 10/30/20 19:00 Intake & Output 10/30/20 10/30/20 10/31/20 06:59 18:59 06:59 Intake Total 2227.398 1830.361 81 Output Total 466 646 25 Balance 1029.090 9530.361 56 Weight 122.8 kg 122.8 kg Intake: IV 366 326 23 0.9 pressure bag 36 36 3 Sodium Chloride 0.9% 1, 230 240 20 000 ml @ 20 mls/hr IV . Q24H [facility] Rx#:[id number] ceFAZolin 2 gm In Sodium 100 50 Chloride 0.9% 50 ml @ 100 mls/hr IVPB Q12HR [facility] Rx #:[id number] Intake, IV Titration 507.398 308.361 Amount Heparin Sod,Pork in 0.45% 150.953 84.021 NaCl 25,000 unit In 0.45 % NaCl 1 250ml.bag @ 9.22 UNITS/KG/HR 10.004 mls/ hr IV .Q24H [facility] Rx#: [id number] Norepinephrine 8 mg In 173.432 139.792 Sodium Chloride 0.9% 250 ml @ 0.2 MCG/KG/MIN 43. 731 mls/hr IV .Q5H54M [facility] Rx#:[id number] propofoL 1,000 mg In 183.013 84.548 Empty Bag 1 bag @ Titrate IV .Q0M [facility] Rx#: [id number] Tube Feeding 754 696 58 Other 600 500 Output: Urine 466 646 25 Other: Voiding Method Indwelling Catheter Indwelling Catheter ABP, PAP, CO, CI - Last Documented Arterial Blood Pressure 97/46 - Labs CBC & Chem 7: 10/30/20 05:30 10/30/20 05:30 Labs: Abnormal Lab Results - Last 24 Hours (Table) 10/30/20 10/30/20 10/30/20 Range/Units 00:10 05:30 05:30 WBC 10.9 H (3.8-10.6) k/uL RBC 3.50 L (3.80-5.40) m/uL Hgb 11.2 L (11.4-16.0) gm/dL MCV 101.2 H (80.0-100.0) fL RDW 17.3 H (11.5-15.5) % Plt Count 91 L (150-450) k/uL Neutrophils # 9.6 H (1.3-7.7) k/uL Lymphocytes # 0.7 L (1.0-4.8) k/uL APTT 37.0 H (22.0-30.0) sec Chloride (98-107) mmol/L Carbon Dioxide (22-30) mmol/L BUN (7-17) mg/dL Creatinine (0.52-1.04) mg/dL Glucose (74-99) mg/dL POC Glucose (mg/dL) 356 H (75-99) mg/dL 10/30/20 10/30/20 10/30/20 Range/Units 05:30 07:01 11:28 WBC (3.8-10.6) k/uL RBC (3.80-5.40) m/uL Hgb (11.4-16.0) gm/dL MCV (80.0-100.0) fL RDW (11.5-15.5) % Plt Count (150-450) k/uL Neutrophils # (1.3-7.7) k/uL Lymphocytes # (1.0-4.8) k/uL APTT (22.0-30.0) sec Chloride 112 H (98-107) mmol/L Carbon Dioxide 21 L (22-30) mmol/L BUN 61 H (7-17) mg/dL Creatinine 1.50 H (0.52-1.04) mg/dL Glucose 344 H (74-99) mg/dL POC Glucose (mg/dL) 326 H 419 H (75-99) mg/dL 10/30/20 10/30/20 Range/Units 15:00 17:54 WBC (3.8-10.6) k/uL RBC (3.80-5.40) m/uL Hgb (11.4-16.0) gm/dL MCV (80.0-100.0) fL RDW (11.5-15.5) % Plt Count (150-450) k/uL Neutrophils # (1.3-7.7) k/uL Lymphocytes # (1.0-4.8) k/uL APTT 52.0 H (22.0-30.0) sec Chloride (98-107) mmol/L Carbon Dioxide (22-30) mmol/L BUN (7-17) mg/dL Creatinine (0.52-1.04) mg/dL Glucose (74-99) mg/dL POC Glucose (mg/dL) 403 H (75-99) mg/dL Microbiology - Last 24 Hours (Table) 10/26/20 12:15 Blood Culture - Preliminary Blood No Growth after 96 hours 10/26/20 11:55 Blood Culture - Preliminary Blood No Growth after 96 hours 10/29/20 10:30 Blood Culture - Preliminary Blood No Growth after 24 hours 10/29/20 09:54 Blood Culture - Preliminary Blood No Growth after 24 hours 10/29/20 14:20 Catheter Tip Culture - Preliminary Catheter Tip 10/25/20 17:46 Blood Culture - Preliminary Blood No Growth after 96 hours
[2020-10-30 20:10] LABS: Glucose,Whole Blood 307 mg/dL (75-99)
[2020-10-30] MEDS ORDERED: INSULIN DETEMIR (LEVEMIR) 100 UNIT/ML SYR SQ SCH (21:00)
[2020-10-31 00:03] LABS: Glucose,Whole Blood 316 mg/dL (75-99)
[2020-10-31] MEDS: INSULIN ASPART (NovoLOG) 100 UNIT/ML VIAL SQ SCH ×6 (00:23→21:01)
[2020-10-31 04:26] LABS: Glucose,Whole Blood 220 mg/dL (75-99)
[2020-10-31 04:58] LABS: Anisocytosis Slight; HCT 32.8 % (34.0-46.0); HGB 9.9 gm/dL (11.4-16.0); Hypochromasia Marked; MCH 31.4 pg (25.0-35.0); MCHC 30.2 g/dL (31.0-37.0); MCV 103.7 fL (80.0-100.0); Macrocytosis Moderate; Mean Platelet Volume 11.8; RBC 3.16 m/uL (3.80-5.40); RDW 18.1 % (11.5-15.5); WBC 10.9 k/uL (3.8-10.6)
[2020-10-31 05:55] LABS: ABG Base Excess -4.4 mmol/L; ABG HCO3 22 mmol/L (21-25); ABG Oxygen Saturation 96.4 % (94-97); ABG PCO2 44 mmHg (35-45); ABG PH 7.31 (7.35-7.45); ABG PO2 87 mmHg (83-108); ABG TCO2 23 mmol/L (19-24); Allen Test Performed? Yes
[2020-10-31 06:03] LABS: Calcium 8.6 mg/dL (8.4-10.2); Potassium 4.2 mmol/L (3.5-5.1)
[2020-10-31 06:05] LABS: Platelet Count 90 k/uL (150-450)
[2020-10-31] MEDS: LEVOTHYROXINE 88 MCG TAB PO SCH (06:43)
[2020-10-31] MEDS: SODIUM CHLORIDE 0.9% 1,000 ML IV SCH (06:44)
[2020-10-31] MEDS: HEPARIN SOD,PORK IN 0.45% NACL 25,000 UNIT in 0.45% NACL 1 250ML.BAG IV SCH (06:44)
[2020-10-31] MEDS: INSULIN DETEMIR (LEVEMIR) 100 UNIT/ML SYR SQ SCH ×3 (06:46→21:15)
[2020-10-31] MEDS: NOREPINEPHRINE 8 MG in SODIUM CHLORIDE 0.9% 250 ML IV SCH ×4 (06:47→21:01)
[2020-10-31] MEDS: MAGNESIUM SULFATE-D5W PMX 1 GM in DEXTROSE/WATER 1 100ML.BAG IVPB SCH ×2 (06:47→09:18)
--- NOTE | 2020-10-31 07:28 | XR ---
EXAMINATION TYPE: XR chest 1V portable DATE OF EXAM: 10/31/2020 COMPARISON: 10/30/2020 HISTORY: SOB, Follow Up FINDINGS: Indwelling tubes and catheters are unchanged. Scattered infiltrates and left-sided pleural effusion are unchanged. Stable appearance of the cardio-mediastinal structures at this time. Pleural effusion unchanged. IMPRESSION: 1. Stable portable chest. Clinical correlation and follow up until resolution is recommended.
[2020-10-31 09:10] LABS: Glucose,Whole Blood 182 mg/dL (75-99)
[2020-10-31] MEDS: FUROSEMIDE 10 MG/ML 4 ML VIAL IV SCH ×3 (09:17→09:25)
[2020-10-31] MEDS: CHLORHEXIDINE GLUCONATE 15 ML CUP MUCOUS MEM SCH ×2 (09:19→21:15)
[2020-10-31] MEDS: PANTOPRAZOLE 40 MG/10 ML VIAL IVP SCH (09:19)
[2020-10-31] MEDS ORDERED: FUROSEMIDE 10 MG/ML 10 ML VIAL IV STA (09:24)
[2020-10-31 11:37] LABS: Glucose,Whole Blood 165 mg/dL (75-99)
--- NOTE | 2020-10-31 12:19 | P.PN ---
Subjective Progress Note Date: 10/31/20 Principal diagnosis: Acute hypoxic respiratory failure secondary to Septic shock secondary to MSSA sepsis and bacteremia. 10/25/2020, the patient is intubated again.I had to intubate the patient again because of hemodynamic instability, hypotension, metabolic acidosis, and altered mentation. As stated earlier, recurrent bouts of sepsis was suspected as the patient was becoming hypotensive, tachycardic and she has also developed worsening and leukocytosis. For that reason, the patient was given IV fluids and she was aggressively resuscitated IV fluids received a total of 60-70 fluids yesterday and the net fluid balance is +9.5 L over the past 24 hours. Also, the patient was broadened in terms of her antibiotic coverage and she was placed on a combination of cefepime and vancomycin. Repeat cultures are still pending for now. Pro-calcitonin is still downtrending and is down to 3.19. Note that the lactic acid came as high as 7.9 and currently down to 2.5. This morning, the patient is intubated on a mechanical ventilator. the patient is well sedated with propofol which is running at 50 mics per kilogram per minute. The patient At this point in time she is an assist-control mode at the rate of 26 with a tidal volume of 500 and FiO2 of 50% with a PEEP of 5. Blood gases from today showed a pH of 7.51 with a pCO2 of 24 and pO2 182. the patient is quite hyp otensive still. Pressor requirements has fluctuated throughout the day yesterday. Note that she has advanced cardiomyopathy with ejection fraction of 20-25%. Currently, norepinephrine has been weaned down to 0.2 mcg/kg per minute.Chest x-ray showing some slight increase in the left-sided pleural effusion. Is also left suprahilar opacity consistent with previous history of non-small cell lung cancer. White cell count peaked at 20.9 and it dropped down to 13.9. She remains in atrial fibrillation. Heart is less tachycardic. Noted the patient also developed an acute kidney injury. Creatinine was as high as 1.5 along with lactic acidosis. The patient was given bicarb infusion and the creatinine today is at 1.46. Lactic acid level is improving. Urine output is fluctuating,, currently she is producing somewhere between 5-30 mL an hour of urine output. She remains on IV heparin. Platelet counts have been stable, and the patient is also On IV heparin.I'm seeing this patient along with various consultants from cardiology, nephrology and infectious disease. Patient was reevaluated today on 10/26/2020, patient was reintubated on the although she was extubated on the , and remains on mechanical ventilation again since the . She is presently on assist control rate of 26 tidal volume is 400 FiO2 is 40% PEEP of 5. ABG showed a pO2 of 145 and I was on 50% pCO2 of 32 pH of 7.43 hence the FiO2 was decreased down to 40%. Patient is on multiple drips including propofol and 50 but granted per kilo per minute, she is also on heparin and IV fluid at 0.9 mL 100 mL per hour. Current down to 50 mL per hour. Blood cultures have been positive intermittently for MSSA patient remains on cefepime and on vancomycin. Looking back at the chart patient was intubated initially on 10/19 extubated on 10/22 reintubated on 10/24. Her last echocardiogram showed poor LV function with ejection fraction of 20-25% at best. Patient is receiving tube feeding/Glucerna at 40 ML's per hour. She is not requiring any norepinephrine at this point. Blood pressure seems to be relatively stable, patient is in atrial fibrillation with controlled rate of 80. Looking back at the chart she had initial presentation of sepsis and mild DKA. Labs today showed relatively normal CBC with WBC count of 8.3 hemoglobin 11.8. PTT is 56. Platelets are 98,000. Sodium is 146 potassium 3.9 chloride 116 bicarb is 20 BUN is 56 creatinine 1.37. Last blood culture from the was positive, and the one from the is negative so far. Left paramediastinal mass remains about the same. Patient was reevaluated today on 10/27/2020, patient remains in the ICU, intubated and mechanically ventilated. No major traveler changer the last 24 hours. Patient remains sedated, she is on propofol at 30 mcg/kg/m, she is requiring norepinephrine at 0.09 and we increased it to 0.1 mcg/kg/m, held her propofol and we were trying to assess her mental status. Her assist-control rate is 26, volume 400 FiO2 40% PEEP of 5 her peak airway pressure is 29 plateau pressure is 21 patient is on IV fluid at 20 mL per hour, she is also on heparin. Her most recent blood cultures are negative so far. Patient is in atrial fibrillation with controlled rate. She is being treated for MSSA bacteremia. Remains on an tibiotics in the form of vancomycin and cefepime. Today the patient was awakened but did not seem to do well with a trial of weaning trying to pressure support of 14 and CPAP. Continue to have very shallow reading and mentally was not appropriate enough to proceed with further weaning trials. Hence placed back on assist control mode of mechanical ventilation. Asked x-ray continues to show evidence of bilateral interstitial infiltrates/edema. WBC count is 8.6 hemoglobin is 10.7 PTT is 53.9 ABG showed a pO2 of 100 pCO2 of 33 pH of 7.43 electrolytes showed sodium 146 chloride is 117 bicarb 22 BUN 57 creatinine 1.49 Reevaluated today on 10/28/20, remains intubated and mechanically ventilated. Patient is on assist control rate of 26 tidal volume 400 FiO2 30% PEEP of 5. EEG showed a pO2 of 123 pCO2 33 pH of 7.45. Remains on propofol at 10 mcg/kg/m and on norepinephrine at 0.08 mcg/kg/m. Patient is scheduled to undergo CRISTIANO today. Mostly trying to rule out endocarditis as the patient had multiple blood cultures positive for MSSA. Blood cultures in the last 2 days have been negativ e. Patient is now on Kefzol chest x-ray continues to show left hemidiaphragm elevation, and bilateral pleural parenchymal disease with patchy airspace disease bilaterally unchanged significantly. CBC is relatively normal WBC count is 6.6 hemoglobin is 10.7. PTT is 49.8. Electrolytes are normal BUN is 56 creatinine 1.47. Patient had issues with low urine output last night, given 500 mL of fluid bolus, urine output remains about 3 0 mL per hour, and she was given Lasix earlier today by nephrology. Not much of a change in her urine output so far. Patient was reevaluated today on 10/29/2020, remains in the ICU, intubated and mechanically ventilated. Her transesophageal echocardiogram clearly showed evidence of mitral vegetations, and the source of her MSSA bacteremia seems to be related to ongoing endocarditis. Patient is on assist control rate of 26 tidal volume is 400 FiO2 30% PEEP of 5. She is on heparin for atrial fibrillation, rate is 120 today. She remains on norepinephrine at 0.08. She is off propofol this morning to assess whether the patient could wean, however a short trial of pressure support of 14 and CPAP clearly demonstrated that the patient is not amenable. She had very small tidal volumes and her rate went up as high as 40. I recommended that she goes back on assist control mode of mechanical ventilation. I'm also recommending tracheostomy and PEG tube placement in this patient. Her ABG today showed a pO2 of 80, pCO2 37 pH of 7.40 and this was on the vent settings as noted above. Electrolytes are normal BUN is 57 creatinine 1.38. WBC count is 7.8 hemoglobin is 10.7. Patient had negative blood cultures for the last 2 or 3 days. Remains on cefazolin. Chest x-ray continues to show significant elevated left hemidiaphragm. And haziness in the bases with small pleural effusions consistent with mild congestive heart failure underlying pneumonia is not entirely ruled out but felt to be less likely Patient was reevaluated today on 10/30/2020, remains in the ICU, intubated and mechanically ventilated. She is on assist control rate of 26 tv 400 FiO2 is 30% PEEP of 5. ABG showed a pO2 of 84 pCO2 37 pH of 7.38. Remains on propofol at 20 mcg/kg/m, she is on heparin. Patient is mostly being treated for MSSA endocarditis. And she has what seems to be some component of interstitial edema and left hemidiaphragm paralysis. Tried weaning, patient could not be weaned, hence I recommended tracheostomy PEG tube placement. She really had a PICC line placed yesterday, and cultures for in the last few days have been negative. 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 She is on enteral feeding using vital HP At 58 mL per hour. Patient is also receiving free water, 200 mL via nasogastric tube every 6 hours. I did recommend Lasix today 40 mg IV push every 12 hours, as her chest x-ray is showing some evidence of mild edema. And the patient is quite swollen and edematous. Patient continues to have a left brachial arterial line in place, and she had a left PICC line placed yesterday. Really status 10.9 hemoglobin is 11.2 PTT is 37. Reevaluated today on 10/31 2020, remains in the ICU, intubated and mechanically ventilated. Patient is on assist control rate of 26 tidal volume 400 FiO2 30% and PEEP of 5. ABG showed a pO2 of 87 pCO2 44 pH of 7.31. Patient is requiring propofol at 20 mcg/kg/m, she is requiring norepinephrine at 0.05 mcg/kg/m, she is yet to be seen by surgery for potential tracheostomy and PEG tube placement. Another attempt was made yesterday for weaning, patient did not tolerate any form of weaning, patient was given a trial of pressure support of 14 and CPAP. At any rate I believe the patient will most likely require tracheostomy and PEG tube placement. In the meantime the patient had a PICC line placed, remains on antibiotics for her endocarditis. Her creatinine jumped up to 1.75 today, and I'm cutting down the Lasix to 40 mg daily instead of twice a day. 40 mg IV push daily. Follow-up blood cultures have been negative in the last 3 days. WBC count is 10.9 hemoglobin is 9.9 electrolytes are normal BUN is 65 creatinine 1.75. Blood sugar is 242. Chest x-ray showed scattered infiltrates and left- sided pleural effusion, Objective - Vital Signs Vital signs: Vital Signs Temp 94.4 F L 10/31/20 08:00 Pulse 82 10/31/20 11:00 Resp 26 H 10/31/20 11:00 BP 96/65 10/31/20 09:45 Pulse Ox 96 10/31/20 11:00 Intake & Output 10/30/20 10/31/20 10/31/20 18:59 06:59 18:59 Intake Total 9978.435 0937.717 788.425 Output Total 646 255 35 Balance 2259.050 9278.717 753.425 Weight 122.8 kg 131.3 kg Intake: IV 326 316 259 0.9 pressure bag 36 36 9 Magnesium Sulfate-D5w Pmx 200 1 gm In Dextrose/Water 1 100ml.bag @ 100 mls/hr IVPB ONCE ONE Rx#: [id number] Sodium Chloride 0.9% 1, 240 230 000 ml @ 20 mls/hr IV . Q24H [facility] Rx#:[id number] ceFAZolin 2 gm In Sodium 50 50 50 Chloride 0.9% 50 ml @ 100 mls/hr IVPB Q12HR [facility] Rx #:[id number] Intake, IV Titration 308.361 522.717 97.425 Amount Heparin Sod,Pork in 0.45% 84.021 200.232 NaCl 25,000 unit In 0.45 % NaCl 1 250ml.bag @ 9.22 UNITS/KG/HR 10.004 mls/ hr IV .Q24H [facility] Rx#: [id number] Norepinephrine 8 mg In 139.792 122.485 35.386 Sodium Chloride 0.9% 250 ml @ 0.2 MCG/KG/MIN 43. 731 mls/hr IV .Q5H54M [facility] Rx#:[id number] propofoL 1,000 mg In 84.548 200 62.039 Empty Bag 1 bag @ Titrate IV .Q0M [facility] Rx#: [id number] Tube Feeding 696 696 232 Other 500 400 200 Output: Urine 646 255 35 Other: Voiding Method Indwelling Catheter Indwelling Catheter ABP, PAP, CO, CI - Last Documented Arterial Blood Pressure 83/51 - Exam Physical Exam: Revealed 75-year-old female intubated and mechanically ventilated. Remains on propofol. She will be given another trial of sedation interruption today Head: Atraumatic, normocephalic. Endotracheal tube and orogastric tube are intact. HEENT:[Neck is supple.] [No neck masses.] [No thyromegaly.] [No JVD.] PERRLA, EOMI, nonicteric, moist mucous membranes. Chest: [Symmetrical chest expansion, crackles persist at the base. Cardiac Exam: [Irregular irregular rhythm. Normal S1 and S2, no S3 gallop, 2/6 systolic murmur thought the precordium. Abdomen: [Soft, nontender, no megaly, no rebound, no guarding, normal bowel sounds.] Extremities: [No clubbing, 2+ bipedal edema, no cyanosis.] Diminished distal pulses bilaterally Neurological Exam: Could not assess as the patient is on propofol, fully sedated. Psychiatric: Could not assess patient is on propofol.. Skin: Multiple areas of bruises, and ecchymosis - Labs CBC & Chem 7: 10/31/20 04:25 10/31/20 04:25 Labs: Abnormal Lab Results - Last 24 Hours (Table) 10/30/20 10/30/20 10/30/20 Range/Units 15:00 17:54 20:09 WBC (3.8-10.6) k/uL RBC (3.80-5.40) m/uL Hgb (11.4-16.0) gm/dL Hct (34.0-46.0) % MCV (80.0-100.0) fL MCHC (31.0-37.0) g/dL RDW (11.5-15.5) % Plt Count (150-450) k/uL APTT 52.0 H (22.0-30.0) sec ABG pH (7.35-7.45) Chloride (98-107) mmol/L Carbon Dioxide (22-30) mmol/L BUN (7-17) mg/dL Creatinine (0.52-1.04) mg/dL Glucose (74-99) mg/dL POC Glucose (mg/dL) 403 H 307 H (75-99) mg/dL 10/31/20 10/31/20 10/31/20 Range/Units 00:02 04:22 04:25 WBC 10.9 H (3.8-10.6) k/uL RBC 3.16 L (3.80-5.40) m/uL Hgb 9.9 L (11.4-16.0) gm/dL Hct 32.8 L (34.0-46.0) % MCV 103.7 H (80.0-100.0) fL MCHC 30.2 L (31.0-37.0) g/dL RDW 18.1 H (11.5-15.5) % Plt Count 90 L (150-450) k/uL APTT (22.0-30.0) sec ABG pH (7.35-7.45) Chloride (98-107) mmol/L Carbon Dioxide (22-30) mmol/L BUN (7-17) mg/dL Creatinine (0.52-1.04) mg/dL Glucose (74-99) mg/dL POC Glucose (mg/dL) 316 H 220 H (75-99) mg/dL 10/31/20 10/31/20 10/31/20 Range/Units 04:25 04:25 05:55 WBC (3.8-10.6) k/uL RBC (3.80-5.40) m/uL Hgb (11.4-16.0) gm/dL Hct (34.0-46.0) % MCV (80.0-100.0) fL MCHC (31.0-37.0) g/dL RDW (11.5-15.5) % Plt Count (150-450) k/uL APTT 44.8 H (22.0-30.0) sec ABG pH 7.31 L (7.35-7.45) Chloride 112 H (98-107) mmol/L Carbon Dioxide 19 L (22-30) mmol/L BUN 65 H (7-17) mg/dL Creatinine 1.75 H (0.52-1.04) mg/dL Glucose 242 H (74-99) mg/dL POC Glucose (mg/dL) (75-99) mg/dL 10/31/20 10/31/20 Range/Units 09:08 11:35 WBC (3.8-10.6) k/uL RBC (3.80-5.40) m/uL Hgb (11.4-16.0) gm/dL Hct (34.0-46.0) % MCV (80.0-100.0) fL MCHC (31.0-37.0) g/dL RDW (11.5-15.5) % Plt Count (150-450) k/uL APTT (22.0-30.0) sec ABG pH (7.35-7.45) Chloride (98-107) mmol/L Carbon Dioxide (22-30) mmol/L BUN (7-17) mg/dL Creatinine (0.52-1.04) mg/dL Glucose (74-99) mg/dL POC Glucose (mg/dL) 182 H 165 H (75-99) mg/dL Microbiology - Last 24 Hours (Table) 10/29/20 09:54 Blood Culture - Preliminary Blood No Growth after 48 hours 10/25/20 17:46 Blood Culture - Preliminary Blood No Growth after 120 hours 10/26/20 12:15 Blood Culture - Preliminary Blood No Growth after 96 hours 10/26/20 11:55 Blood Culture - Preliminary Blood No Growth after 96 hours 10/29/20 10:30 Blood Culture - Preliminary Blood No Growth after 24 hours Assessment and Plan Assessment: Impression: Acute hypoxic respiratory failure secondary to sepsis and septic shock secondary to MSSA bacteremia secondary to endocarditis. Septic shock on presentation. Associated with hypotension although the possib ility of cardiogenic shock is not entirely ruled out considering the patient has a very poor ejection fraction of 20-25%. Coronary artery disease and previous CABG. Bacteremia secondary to acute endocarditis. Refer to the results of the PEEP Possible non-ST elevation myocardial infarction on presentation with elevated troponin levels. Paroxysmal atrial fibrillation. History of non-small cell lung cancer stage IIIB status post chemoradiation therapy. Last PET scan was in August of 2020. Left perihilar mass is noted on chest x-ray. Bilateral pleural effusions secondary to systolic congestive heart failure, acute on chronic. Acute shock liver, resolved. Acute kidney injury secondary to acute tubular necrosis and possible cardiorenal syndrome on her initial presentation. Improved with fluid resuscitation. Acute on chronic congestive heart failure secondary to ischemic cardiomyopathy and LV dysfunction with ejection fraction of 20-25%. Thrombocytopenia, exact etiology is not clear, improving could very well be related to sepsis. Platelets today are 91,000. Failure to wean in spite of having the patient on pressure support of 14 and CPAP. We'll continue weaning trials daily. And sedation interruption daily, in the meantime we'll consult surgery for possible tracheostomy and PEG tube placement next week. 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 Recommendation: Continue ventilatory support. Failure to wean. We'll continue daily weaning trials. In the meantime I am recommending tracheostomy and PEG tube placement. Consult surgery for tracheostomy and PEG tube placement Continue antibiotics patient is now on cefazolin for MSSA bacteremia. Continue to monitor blood cultures. Continue GI and DVT prophylaxis. Continue Nutritional support, enteral feeding. Continue heparin but continue to monitor platelets. Continue hemodynamic support, remains on a small dose of norepinephrine. Continue to monitor daily labs and x-rays. Cut down Lasix to 40 mg IV push daily instead of twice a day. Continue insulin as per protocol. Continue ICU management. Patient is critically ill, critical care time is over 30 minutes. Time with Patient: Greater than 30
[2020-10-31 12:24] VITALS: BMI 49.6
--- NOTE | 2020-10-31 13:00 | P.PN ---
Subjective Progress Note Date: 10/31/20 Patient is sedated and intubated. No spontaneous breathing trial this morning. She still requiring norepinephrine to maintain mean arterial pressure greater than 60. No acute events overnight reported by nursing staff Objective - Vital Signs Vital signs: Vital Signs Temp 94.4 F L 10/31/20 08:00 Pulse 82 10/31/20 11:00 Resp 26 H 10/31/20 11:00 BP 96/65 10/31/20 09:45 Pulse Ox 96 10/31/20 11:00 Intake & Output 10/30/20 10/31/20 10/31/20 18:59 06:59 18:59 Intake Total 6360.687 6773.717 788.425 Output Total 646 255 35 Balance 9921.039 3842.717 753.425 Weight 122.8 kg 131.3 kg 131.3 kg Intake: IV 326 316 259 0.9 pressure bag 36 36 9 Magnesium Sulfate-D5w Pmx 200 1 gm In Dextrose/Water 1 100ml.bag @ 100 mls/hr IVPB ONCE ONE Rx#: [id number] Sodium Chloride 0.9% 1, 240 230 000 ml @ 20 mls/hr IV . Q24H [facility] Rx#:[id number] ceFAZolin 2 gm In Sodium 50 50 50 Chloride 0.9% 50 ml @ 100 mls/hr IVPB Q12HR [facility] Rx #:[id number] Intake, IV Titration 308.361 522.717 97.425 Amount Heparin Sod,Pork in 0.45% 84.021 200.232 NaCl 25,000 unit In 0.45 % NaCl 1 250ml.bag @ 9.22 UNITS/KG/HR 10.004 mls/ hr IV .Q24H [facility] Rx#: [id number] Norepinephrine 8 mg In 139.792 122.485 35.386 Sodium Chloride 0.9% 250 ml @ 0.2 MCG/KG/MIN 43. 731 mls/hr IV .Q5H54M [facility] Rx#:[id number] propofoL 1,000 mg In 84.548 200 62.039 Empty Bag 1 bag @ Titrate IV .Q0M [facility] Rx#: [id number] Tube Feeding 696 696 232 Other 500 400 200 Output: Urine 646 255 35 Other: Voiding Method Indwelling Catheter Indwelling Catheter ABP, PAP, CO, CI - Last Documented Arterial Blood Pressure 83/51 - Exam General: The patient is sedated and intubated Eye: there is normal conjunctiva bilaterally. Neck: The neck is supple, there is no JVD. Cardiovascular: Normal S1-S2, no S3-S4, no murmurs. Respiratory: Lungs clear to auscultation bilaterally Gastrointestinal: Abdomen is soft, nontender Musculoskeletal: There is no pedal edema. Skin: Skin is warm and dry - Labs CBC & Chem 7: 10/31/20 04:25 10/31/20 04:25 Labs: Abnormal Lab Results - Last 24 Hours (Table) 10/30/20 10/30/20 10/30/20 Range/Units 15:00 17:54 20:09 WBC (3.8-10.6) k/uL RBC (3.80-5.40) m/uL Hgb (11.4-16.0) gm/dL Hct (34.0-46.0) % MCV (80.0-100.0) fL MCHC (31.0-37.0) g/dL RDW (11.5-15.5) % Plt Count (150-450) k/uL APTT 52.0 H (22.0-30.0) sec ABG pH (7.35-7.45) Chloride (98-107) mmol/L Carbon Dioxide (22-30) mmol/L BUN (7-17) mg/dL Creatinine (0.52-1.04) mg/dL Glucose (74-99) mg/dL POC Glucose (mg/dL) 403 H 307 H (75-99) mg/dL 10/31/20 10/31/20 10/31/20 Range/Units 00:02 04:22 04:25 WBC 10.9 H (3.8-10.6) k/uL RBC 3.16 L (3.80-5.40) m/uL Hgb 9.9 L (11.4-16.0) gm/dL Hct 32.8 L (34.0-46.0) % MCV 103.7 H (80.0-100.0) fL MCHC 30.2 L (31.0-37.0) g/dL RDW 18.1 H (11.5-15.5) % Plt Count 90 L (150-450) k/uL APTT (22.0-30.0) sec ABG pH (7.35-7.45) Chloride (98-107) mmol/L Carbon Dioxide (22-30) mmol/L BUN (7-17) mg/dL Creatinine (0.52-1.04) mg/dL Glucose (74-99) mg/dL POC Glucose (mg/dL) 316 H 220 H (75-99) mg/dL 10/31/20 10/31/20 10/31/20 Range/Units 04:25 04:25 05:55 WBC (3.8-10.6) k/uL RBC (3.80-5.40) m/uL Hgb (11.4-16.0) gm/dL Hct (34.0-46.0) % MCV (80.0-100.0) fL MCHC (31.0-37.0) g/dL RDW (11.5-15.5) % Plt Count (150-450) k/uL APTT 44.8 H (22.0-30.0) sec ABG pH 7.31 L (7.35-7.45) Chloride 112 H (98-107) mmol/L Carbon Dioxide 19 L (22-30) mmol/L BUN 65 H (7-17) mg/dL Creatinine 1.75 H (0.52-1.04) mg/dL Glucose 242 H (74-99) mg/dL POC Glucose (mg/dL) (75-99) mg/dL 10/31/20 10/31/20 Range/Units 09:08 11:35 WBC (3.8-10.6) k/uL RBC (3.80-5.40) m/uL Hgb (11.4-16.0) gm/dL Hct (34.0-46.0) % MCV (80.0-100.0) fL MCHC (31.0-37.0) g/dL RDW (11.5-15.5) % Plt Count (150-450) k/uL APTT (22.0-30.0) sec ABG pH (7.35-7.45) Chloride (98-107) mmol/L Carbon Dioxide (22-30) mmol/L BUN (7-17) mg/dL Creatinine (0.52-1.04) mg/dL Glucose (74-99) mg/dL POC Glucose (mg/dL) 182 H 165 H (75-99) mg/dL Microbiology - Last 24 Hours (Table) 10/29/20 10:30 Blood Culture - Preliminary Blood No Growth after 48 hours 10/29/20 09:54 Blood Culture - Preliminary Blood No Growth after 48 hours 10/25/20 17:46 Blood Culture - Preliminary Blood No Growth after 120 hours 10/26/20 12:15 Blood Culture - Preliminary Blood No Growth after 96 hours 10/26/20 11:55 Blood Culture - Preliminary Blood No Growth after 96 hours Assessment and Plan Assessment: This is a 75-year-old female with past medical history significant for left lung cancer now in remission that presented to the emergency room with fevers. Patient was evaluated in the ER and admitted to the hospital for further management of her medical problems noted below. 1. Severe sepsis with septic shock, treated with aggressive IV fluid hydration and antibiotic. Required vasopressors till 10/22 then again on 10/24. 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 Influenza, Covid-19, and C. diff screen negative 2. MSSA bacteremia, blood culture cleared on for a few days but turned back positive on 10/24. Patient has been on antibiotics since admission transitioned from cefazolin to vancomycin and cefepime and now back to cefazolin. Blood culture on 10/25 negative to date. Infectious disease following closely 3. Severe sepsis with septic shock secondary to underlying acute endocarditis 4. Acute kidney injury, oliguric. hyperkalemia: Resolved. Avoid nephrotoxins. Nephrology consulted for further evaluation. 5. Acute respiratory failure requiring sedation and mechanical intubation successfully extubated and then reintubated on 10/24 5. Metabolic acidosis secondary to above 6. Liver shock with coagulopathy secondary to hypotension. Liver enzymes trending now 7. Troponin elevation, non-thrombotic troponin leak secondary to severe sepsis. Cardiology consulted for further evaluation. Echocardiogram showed EF of 20- 25% 8. Chronic atrial fibrillation on anticoagulation with Coumadin, Currently on IV heparin will continue to monitor for thrombocytopenia 9. Chronic congestive heart failure, systolic. Lasix 40 mg daily ordered 10. History of lung cancer in remission 11. Thrombocytopenia: Probably secondary to critical illness and underlying sepsis. Platelet count stabilized. We will continue to monitor closely. 12. Type 2 diabetes, continue current dose of Levemir plus sliding scale. Today, I reviewed her medication list and lab work results Cardiology recommended conservative management and IV antibiotic for underlying endocarditis Plan for PEG tube and tracheostomy awaiting general surgery evaluation tube feeding per dietitian Overall prognosis guarded
--- NOTE | 2020-10-31 13:40 | PN ---
PROGRESS NOTE Patient is seen for followup for acute kidney injury. She currently remains on the vent. Renal function is slightly worse. Creatinine up to 1.7 from 1.5 yesterday. The patient's blood pressure has been on the lower side, systolic around 89-84 mmHg. Urine output at 15-10 mL an hour. It had been 0. Patient is currently not on any IV fluids. She was maintained on Lasix which was held. PHYSICAL EXAMINATION: On examination today, blood pressure was 89/55, heart rate of 85 per minute. Patient is afebrile. Examination of the heart S1, S2. Examination of lungs, decreased breath sounds at the bases. Abdomen is soft, nontender. Examination of lower extremities shows edema 2+ bilaterally. ASSEMBLER PRODUCT exam not performed. LAB: Show sodium 141, potassium 4.2, chloride 112, CO2 is 19, BUN 65, creatinine 1.75, hemoglobin 9.9 g/dL. ASSESSMENT: 1. Acute kidney injury acute tubular necrosis, secondary to low blood pressure, hypotension, currently oliguric. We will repeat IV Lasix. 2. MSSA bacteremia, maintained on antibiotics. 3. Metabolic acidosis associated with acute kidney injury, lactic acidosis and compensation from respiratory alkalosis. 4. Acute hypoxic respiratory failure currently on the vent. 5. Chronic systolic congestive heart failure with ejection fraction 20-25%. 6. Hypernatremia, currently improved. 7. Volume overload. 8. Mitral valve vegetation/endocarditis. PLAN: Lasix 60 mg IV push x1. Continue to avoid nephrotoxic agents. MMODL / IJN: [id number] /
--- NOTE | 2020-10-31 14:36 | P.PN ---
Subjective Progress Note Date: 10/31/20 Condition unchanged. On full ventilatory support and unable to wean from vent. Trach and peg per protocol. Objective - Vital Signs Vital signs: Vital Signs Temp 94.4 F L 10/31/20 08:00 Pulse 82 10/31/20 11:00 Resp 26 H 10/31/20 11:00 BP 96/65 10/31/20 09:45 Pulse Ox 96 10/31/20 11:00 Intake & Output 10/30/20 10/31/20 10/31/20 18:59 06:59 18:59 Intake Total 9416.864 2926.717 788.425 Output Total 646 255 35 Balance 8113.120 6637.717 753.425 Weight 122.8 kg 131.3 kg 131.3 kg Intake: IV 326 316 259 0.9 pressure bag 36 36 9 Magnesium Sulfate-D5w Pmx 200 1 gm In Dextrose/Water 1 100ml.bag @ 100 mls/hr IVPB ONCE ONE Rx#: [id number] Sodium Chloride 0.9% 1, 240 230 000 ml @ 20 mls/hr IV . Q24H [facility] Rx#:[id number] ceFAZolin 2 gm In Sodium 50 50 50 Chloride 0.9% 50 ml @ 100 mls/hr IVPB Q12HR [facility] Rx #:[id number] Intake, IV Titration 308.361 522.717 97.425 Amount Heparin Sod,Pork in 0.45% 84.021 200.232 NaCl 25,000 unit In 0.45 % NaCl 1 250ml.bag @ 9.22 UNITS/KG/HR 10.004 mls/ hr IV .Q24H [facility] Rx#: [id number] Norepinephrine 8 mg In 139.792 122.485 35.386 Sodium Chloride 0.9% 250 ml @ 0.2 MCG/KG/MIN 43. 731 mls/hr IV .Q5H54M [facility] Rx#:[id number] propofoL 1,000 mg In 84.548 200 62.039 Empty Bag 1 bag @ Titrate IV .Q0M [facility] Rx#: [id number] Tube Feeding 696 696 232 Other 500 400 200 Output: Urine 646 255 35 Other: Voiding Method Indwelling Catheter Indwelling Catheter ABP, PAP, CO, CI - Last Documented Arterial Blood Pressure 83/51 - Labs CBC & Chem 7: 10/31/20 04:25 10/31/20 04:25 Labs: Abnormal Lab Results - Last 24 Hours (Table) 10/30/20 10/30/20 10/30/20 Range/Units 15:00 17:54 20:09 WBC (3.8-10.6) k/uL RBC (3.80-5.40) m/uL Hgb (11.4-16.0) gm/dL Hct (34.0-46.0) % MCV (80.0-100.0) fL MCHC (31.0-37.0) g/dL RDW (11.5-15.5) % Plt Count (150-450) k/uL APTT 52.0 H (22.0-30.0) sec ABG pH (7.35-7.45) Chloride (98-107) mmol/L Carbon Dioxide (22-30) mmol/L BUN (7-17) mg/dL Creatinine (0.52-1.04) mg/dL Glucose (74-99) mg/dL POC Glucose (mg/dL) 403 H 307 H (75-99) mg/dL 10/31/20 10/31/20 10/31/20 Range/Units 00:02 04:22 04:25 WBC 10.9 H (3.8-10.6) k/uL RBC 3.16 L (3.80-5.40) m/uL Hgb 9.9 L (11.4-16.0) gm/dL Hct 32.8 L (34.0-46.0) % MCV 103.7 H (80.0-100.0) fL MCHC 30.2 L (31.0-37.0) g/dL RDW 18.1 H (11.5-15.5) % Plt Count 90 L (150-450) k/uL APTT (22.0-30.0) sec ABG pH (7.35-7.45) Chloride (98-107) mmol/L Carbon Dioxide (22-30) mmol/L BUN (7-17) mg/dL Creatinine (0.52-1.04) mg/dL Glucose (74-99) mg/dL POC Glucose (mg/dL) 316 H 220 H (75-99) mg/dL 10/31/20 10/31/20 10/31/20 Range/Units 04:25 04:25 05:55 WBC (3.8-10.6) k/uL RBC (3.80-5.40) m/uL Hgb (11.4-16.0) gm/dL Hct (34.0-46.0) % MCV (80.0-100.0) fL MCHC (31.0-37.0) g/dL RDW (11.5-15.5) % Plt Count (150-450) k/uL APTT 44.8 H (22.0-30.0) sec ABG pH 7.31 L (7.35-7.45) Chloride 112 H (98-107) mmol/L Carbon Dioxide 19 L (22-30) mmol/L BUN 65 H (7-17) mg/dL Creatinine 1.75 H (0.52-1.04) mg/dL Glucose 242 H (74-99) mg/dL POC Glucose (mg/dL) (75-99) mg/dL 10/31/20 10/31/20 Range/Units 09:08 11:35 WBC (3.8-10.6) k/uL RBC (3.80-5.40) m/uL Hgb (11.4-16.0) gm/dL Hct (34.0-46.0) % MCV (80.0-100.0) fL MCHC (31.0-37.0) g/dL RDW (11.5-15.5) % Plt Count (150-450) k/uL APTT (22.0-30.0) sec ABG pH (7.35-7.45) Chloride (98-107) mmol/L Carbon Dioxide (22-30) mmol/L BUN (7-17) mg/dL Creatinine (0.52-1.04) mg/dL Glucose (74-99) mg/dL POC Glucose (mg/dL) 182 H 165 H (75-99) mg/dL Microbiology - Last 24 Hours (Table) 10/26/20 12:15 Blood Culture - Preliminary Blood No Growth after 120 hours 10/26/20 11:55 Blood Culture - Preliminary Blood No Growth after 120 hours 10/29/20 10:30 Blood Culture - Preliminary Blood No Growth after 48 hours 10/29/20 09:54 Blood Culture - Preliminary Blood No Growth after 48 hours 10/25/20 17:46 Blood Culture - Preliminary Blood No Growth after 120 hours
[2020-10-31 16:09] LABS: Glucose,Whole Blood 121 mg/dL (75-99)
--- NOTE | 2020-10-31 19:28 | PN ---
PROGRESS NOTE DATE OF SERVICE: 10/31/2020. HISTORY: Mrs. Green is in atrial fibrillation, still on the ventilator, requiring Levophed for support. She has a urine output is fair. She is on antibiotics. She has mitral valve endocarditis. PHYSICAL EXAM: Blood pressure is about 110 to 120 systolic. S1, S2 heard normally. Short systolic murmur noted. Irregular rhythm noted. Lungs reveal diminished air entry. Abdomen exam is unchanged. Prognosis remains poor. PLAN: We will continue current therapy. We will continue to see her. MMODL / IJN: [id number] /
[2020-10-31 21:01] LABS: Glucose,Whole Blood 103 mg/dL (75-99)
--- NOTE | 2020-10-31 23:40 | PN ---
PROGRESS NOTE DATE OF SERVICE: 10/31/2020. REASON FOR FOLLOWUP: MSSA bacteremia and history of mitral valve endocarditis. INTERVAL HISTORY: Patient remains to be afebrile. The patient is hemodynamically stable, not on pressor support. FiO2 is currently stable at 30%, no significant purulent secretions through the ET or diarrhea reported by nursing staff. PHYSICAL EXAMINATION: Blood pressure 111/67, pulse of 104, temperature 97.9. She is 91% on 30% FiO2. Description is an elderly female lying in bed in no distress. RESPIRATORY SYSTEM: Unlabored breathing with decreased breath sounds in the base, with no wheeze. HEART: S1, S2. Regular rate. ABDOMEN: No tenderness. LAB DATA: 10.9. Blood culture repeat has been negative. DIAGNOSTIC IMPRESSION AND PLAN: Patient with MSSA bacteremia and history of mitral valve endocarditis. The patient is covered with cefazolin, to continue while monitoring clinical course closely. Continue supportive care. MMODL / IJN: [id number] /
[2020-11-01 00:01] LABS: Glucose,Whole Blood 113 mg/dL (75-99)
[2020-11-01 00:17] LABS: Glucose,Whole Blood 125 mg/dL (75-99)
[2020-11-01] MEDS: INSULIN ASPART (NovoLOG) 100 UNIT/ML VIAL SQ SCH ×6 (00:18→21:45)
[2020-11-01 04:57] LABS: Glucose,Whole Blood 177 mg/dL (75-99)
[2020-11-01 05:35] LABS: ABG Base Excess -4.6 mmol/L; ABG HCO3 21 mmol/L (21-25); ABG PCO2 41 mmHg (35-45); ABG PH 7.32 (7.35-7.45); ABG PO2 86 mmHg (83-108); ABG TCO2 23 mmol/L (19-24); Allen Test Performed? Yes
[2020-11-01 05:49] LABS: Calcium 8.7 mg/dL (8.4-10.2)
[2020-11-01 06:11] LABS: Anisocytosis Slight; HCT 32.5 % (34.0-46.0); HGB 9.8 gm/dL (11.4-16.0); Hypochromasia Marked; MCH 31.8 pg (25.0-35.0); MCHC 30.3 g/dL (31.0-37.0); MCV 104.9 fL (80.0-100.0); Macrocytosis Moderate; Mean Platelet Volume 11.6; RDW 18.6 % (11.5-15.5); WBC 9.6 k/uL (3.8-10.6)
[2020-11-01 06:18] LABS: Platelet Count 98 k/uL (150-450)
[2020-11-01] MEDS: LEVOTHYROXINE 88 MCG TAB PO SCH (06:58)
[2020-11-01] MEDS: INSULIN DETEMIR (LEVEMIR) 100 UNIT/ML SYR SQ SCH ×2 (07:05→21:45)
[2020-11-01] MEDS: NOREPINEPHRINE 8 MG in SODIUM CHLORIDE 0.9% 250 ML IV SCH ×5 (07:18→21:44)
--- NOTE | 2020-11-01 07:24 | XR ---
EXAMINATION TYPE: XR chest 1V portable DATE OF EXAM: 11/01/2020 COMPARISON: 10/31/2020 HISTORY: SOB, Follow Up FINDINGS: Indwelling tubes and catheters are unchanged. No change in scattered patchy infiltrates and bilateral effusions. Stable appearance of the cardio-mediastinal structures at this time. IMPRESSION: 1. Stable portable chest. Clinical correlation and follow up until resolution is recommended.
[2020-11-01 10:15] LABS: Glucose,Whole Blood 205 mg/dL (75-99)
[2020-11-01] MEDS: HEPARIN SOD,PORK IN 0.45% NACL 25,000 UNIT in 0.45% NACL 1 250ML.BAG IV SCH (10:18)
[2020-11-01] MEDS: CHLORHEXIDINE GLUCONATE 15 ML CUP MUCOUS MEM SCH ×2 (10:28→21:44)
[2020-11-01] MEDS: FUROSEMIDE 10 MG/ML 4 ML VIAL IV SCH (10:28)
[2020-11-01] MEDS: MIDODRINE 5 MG TAB PO SCH ×3 (10:28→20:00)
[2020-11-01] MEDS: PANTOPRAZOLE 40 MG/10 ML VIAL IVP SCH (10:28)
--- NOTE | 2020-11-01 11:25 | PN ---
PROGRESS NOTE Mrs. Green remains in atrial fib, controlled rate. She is still on fairly high doses of Levophed. Urine output is fairly decent. The patient's overall prognosis is poor. I would recommend comfort care. EXAMINATION: Blood pressure is 120/70, S1-S2 heard normally. Short systolic murmur noted. Irregular rhythm noted> Lungs reveal ventilator-assisted breath sounds. Rest of physical exam unchanged. RECOMMENDATIONS: Prognosis is poor. No new suggestions from a cardiac standpoint. She has probable mitral valve endocarditis. MMODL / IJN: [id number] /
[2020-11-01 11:40] LABS: Glucose,Whole Blood 224 mg/dL (75-99)
--- NOTE | 2020-11-01 12:07 | PN ---
PROGRESS NOTE Patient is seen for followup for acute kidney injury. The patient is currently sedated, she remains on the vent. Urine output slightly improved. The patient is maintained on low-dose Levophed. EXAMINATION: Today blood pressure was 113/67, heart rate 92 per minute. She is afebrile. Examination of the heart: S1, S2. Examination of the lungs: Bilateral breath sounds are heard. Abdomen: Soft, distended, obese. Examination of lower extremities shows edema 2+ bilaterally, upper and lower extremities. SENIOR NETWORK ENGINEER exam cannot be performed. LABS: Show sodium 138, potassium 5.0, chloride 110, CO2 is 19, BUN 72, creatinine 1.9. ASSESSMENT: 1. Acute kidney injury, ATN with worsening renal function. Serum creatinine slightly higher. Urine output borderline but slightly improved with improved perfusion pressures. No nephrotoxic agents on board. I will add midodrine and hopefully we can wean down the Levophed. 2. Acute hypoxic respiratory failure, currently on the vent. 3. Chronic systolic congestive heart failure, ejection fraction 20-25%. 4. Hypernatremia, now improved. 5. Mitral valve vegetation/endocarditis. 6. MSSA bacteremia maintained on antibiotics. PLAN: Add midodrine. Once urine output is slightly improved, we can try to diurese patient with higher dose of loop diuretics. MMODL / IJN: [id number] /
--- NOTE | 2020-11-01 12:29 | P.PN ---
Subjective Progress Note Date: 11/01/20 Principal diagnosis: Acute hypoxic respiratory failure secondary to Septic shock secondary to MSSA sepsis and bacteremia. 10/25/2020, the patient is intubated again.I had to intubate the patient again because of hemodynamic instability, hypotension, metabolic acidosis, and altered mentation. As stated earlier, recurrent bouts of sepsis was suspected as the patient was becoming hypotensive, tachycardic and she has also developed worsening and leukocytosis. For that reason, the patient was given IV fluids and she was aggressively resuscitated IV fluids received a total of 60-70 fluids yesterday and the net fluid balance is +9.5 L over the past 24 hours. Also, the patient was broadened in terms of her antibiotic coverage and she was placed on a combination of cefepime and vancomycin. Repeat cultures are still pending for now. Pro-calcitonin is still downtrending and is down to 3.19. Note that the lactic acid came as high as 7.9 and currently down to 2.5. This morning, the patient is intubated on a mechanical ventilator. the patient is well sedated with propofol which is running at 50 mics per kilogram per minute. The patient At this point in time she is an assist-control mode at the rate of 26 with a tidal volume of 500 and FiO2 of 50% with a PEEP of 5. Blood gases from today showed a pH of 7.51 with a pCO2 of 24 and pO2 182. the patient is quite hyp otensive still. Pressor requirements has fluctuated throughout the day yesterday. Note that she has advanced cardiomyopathy with ejection fraction of 20-25%. Currently, norepinephrine has been weaned down to 0.2 mcg/kg per minute.Chest x-ray showing some slight increase in the left-sided pleural effusion. Is also left suprahilar opacity consistent with previous history of non-small cell lung cancer. White cell count peaked at 20.9 and it dropped down to 13.9. She remains in atrial fibrillation. Heart is less tachycardic. Noted the patient also developed an acute kidney injury. Creatinine was as high as 1.5 along with lactic acidosis. The patient was given bicarb infusion and the creatinine today is at 1.46. Lactic acid level is improving. Urine output is fluctuating,, currently she is producing somewhere between 5-30 mL an hour of urine output. She remains on IV heparin. Platelet counts have been stable, and the patient is also On IV heparin.I'm seeing this patient along with various consultants from cardiology, nephrology and infectious disease. Patient was reevaluated today on 10/26/2020, patient was reintubated on the although she was extubated on the , and remains on mechanical ventilation again since the . She is presently on assist control rate of 26 tidal volume is 400 FiO2 is 40% PEEP of 5. ABG showed a pO2 of 145 and I was on 50% pCO2 of 32 pH of 7.43 hence the FiO2 was decreased down to 40%. Patient is on multiple drips including propofol and 50 but granted per kilo per minute, she is also on heparin and IV fluid at 0.9 mL 100 mL per hour. Current down to 50 mL per hour. Blood cultures have been positive intermittently for MSSA patient remains on cefepime and on vancomycin. Looking back at the chart patient was intubated initially on 10/19 extubated on 10/22 reintubated on 10/24. Her last echocardiogram showed poor LV function with ejection fraction of 20-25% at best. Patient is receiving tube feeding/Glucerna at 40 ML's per hour. She is not requiring any norepinephrine at this point. Blood pressure seems to be relatively stable, patient is in atrial fibrillation with controlled rate of 80. Looking back at the chart she had initial presentation of sepsis and mild DKA. Labs today showed relatively normal CBC with WBC count of 8.3 hemoglobin 11.8. PTT is 56. Platelets are 98,000. Sodium is 146 potassium 3.9 chloride 116 bicarb is 20 BUN is 56 creatinine 1.37. Last blood culture from the was positive, and the one from the is negative so far. Left paramediastinal mass remains about the same. Patient was reevaluated today on 10/27/2020, patient remains in the ICU, intubated and mechanically ventilated. No major interchange agent the last 24 hours. Patient remains sedated, she is on propofol at 30 mcg/kg/m, she is requiring norepinephrine at 0.09 and we increased it to 0.1 mcg/kg/m, held her propofol and we were trying to assess her mental status. Her assist-control rate is 26, volume 400 FiO2 40% PEEP of 5 her peak airway pressure is 29 plateau pressure is 21 patient is on IV fluid at 20 mL per hour, she is also on heparin. Her most recent blood cultures are negative so far. Patient is in atrial fibrillation with controlled rate. She is being treated for MSSA bacteremia. Remains on an tibiotics in the form of vancomycin and cefepime. Today the patient was awakened but did not seem to do well with a trial of weaning trying to pressure support of 14 and CPAP. Continue to have very shallow reading and mentally was not appropriate enough to proceed with further weaning trials. Hence placed back on assist control mode of mechanical ventilation. Asked x-ray continues to show evidence of bilateral interstitial infiltrates/edema. WBC count is 8.6 hemoglobin is 10.7 PTT is 53.9 ABG showed a pO2 of 100 pCO2 of 33 pH of 7.43 electrolytes showed sodium 146 chloride is 117 bicarb 22 BUN 57 creatinine 1.49 Reevaluated today on 10/28/20, remains intubated and mechanically ventilated. Patient is on assist control rate of 26 tidal volume 400 FiO2 30% PEEP of 5. EEG showed a pO2 of 123 pCO2 33 pH of 7.45. Remains on propofol at 10 mcg/kg/m and on norepinephrine at 0.08 mcg/kg/m. Patient is scheduled to undergo CRISTIANO today. Mostly trying to rule out endocarditis as the patient had multiple blood cultures positive for MSSA. Blood cultures in the last 2 days have been negativ e. Patient is now on Kefzol chest x-ray continues to show left hemidiaphragm elevation, and bilateral pleural parenchymal disease with patchy airspace disease bilaterally unchanged significantly. CBC is relatively normal WBC count is 6.6 hemoglobin is 10.7. PTT is 49.8. Electrolytes are normal BUN is 56 creatinine 1.47. Patient had issues with low urine output last night, given 500 mL of fluid bolus, urine output remains about 3 0 mL per hour, and she was given Lasix earlier today by nephrology. Not much of a change in her urine output so far. Patient was reevaluated today on 10/29/2020, remains in the ICU, intubated and mechanically ventilated. Her transesophageal echocardiogram clearly showed evidence of mitral vegetations, and the source of her MSSA bacteremia seems to be related to ongoing endocarditis. Patient is on assist control rate of 26 tidal volume is 400 FiO2 30% PEEP of 5. She is on heparin for atrial fibrillation, rate is 120 today. She remains on norepinephrine at 0.08. She is off propofol this morning to assess whether the patient could wean, however a short trial of pressure support of 14 and CPAP clearly demonstrated that the patient is not amenable. She had very small tidal volumes and her rate went up as high as 40. I recommended that she goes back on assist control mode of mechanical ventilation. I'm also recommending tracheostomy and PEG tube placement in this patient. Her ABG today showed a pO2 of 80, pCO2 37 pH of 7.40 and this was on the vent settings as noted above. Electrolytes are normal BUN is 57 creatinine 1.38. WBC count is 7.8 hemoglobin is 10.7. Patient had negative blood cultures for the last 2 or 3 days. Remains on cefazolin. Chest x-ray continues to show significant elevated left hemidiaphragm. And haziness in the bases with small pleural effusions consistent with mild congestive heart failure underlying pneumonia is not entirely ruled out but felt to be less likely Patient was reevaluated today on 10/30/2020, remains in the ICU, intubated and mechanically ventilated. She is on assist control rate of 26 tv 400 FiO2 is 30% PEEP of 5. ABG showed a pO2 of 84 pCO2 37 pH of 7.38. Remains on propofol at 20 mcg/kg/m, she is on heparin. Patient is mostly being treated for MSSA endocarditis. And she has what seems to be some component of interstitial edema and left hemidiaphragm paralysis. Tried weaning, patient could not be weaned, hence I recommended tracheostomy PEG tube placement. She really had a PICC line placed yesterday, and cultures for in the last few days have been negative. 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 She is on enteral feeding using vital HP At 58 mL per hour. Patient is also receiving free water, 200 mL via nasogastric tube every 6 hours. I did recommend Lasix today 40 mg IV push every 12 hours, as her chest x-ray is showing some evidence of mild edema. And the patient is quite swollen and edematous. Patient continues to have a left brachial arterial line in place, and she had a left PICC line placed yesterday. Really status 10.9 hemoglobin is 11.2 PTT is 37. Reevaluated today on 10/31 2020, remains in the ICU, intubated and mechanically ventilated. Patient is on assist control rate of 26 tidal volume 400 FiO2 30% and PEEP of 5. ABG showed a pO2 of 87 pCO2 44 pH of 7.31. Patient is requiring propofol at 20 mcg/kg/m, she is requiring norepinephrine at 0.05 mcg/kg/m, she is yet to be seen by surgery for potential tracheostomy and PEG tube placement. Another attempt was made yesterday for weaning, patient did not tolerate any form of weaning, patient was given a trial of pressure support of 14 and CPAP. At any rate I believe the patient will most likely require tracheostomy and PEG tube placement. In the meantime the patient had a PICC line placed, remains on antibiotics for her endocarditis. Her creatinine jumped up to 1.75 today, and I'm cutting down the Lasix to 40 mg daily instead of twice a day. 40 mg IV push daily. Follow-up blood cultures have been negative in the last 3 days. WBC count is 10.9 hemoglobin is 9.9 electrolytes are normal BUN is 65 creatinine 1.75. Blood sugar is 242. Chest x-ray showed scattered infiltrates and left- sided pleural effusion, Patient was reevaluated today on 11/01/2020, remains in the ICU, intubated and mechanically ventilated. Patient is on assist control rate of 26 tidal volume 400 FiO2 30% PEEP of 5. ABG showed a pO2 of 86 pCO2 41 pH of 7.32. Slight increase in her creatinine is noted up to 1.94. Patient remains on norepinephrine at 0.09 mcg/kg/m, propofol at 20 mcg/kg/m. IV fluid is at 20 mL per hour. She is also on vital HP at 58 mL/h/cor. Still receiving water flushes via orogastric tube, and I cut it down to 100 mL every 6 hours sodium today is 138. Chest x-ray continues to show nonspecific interstitial edema, and elevated left hemidiaphragm. CBC today is relatively normal hemoglobin is 9.8 electrolytes are normal bicarb is 19 BUN is 72 creatinine 1.94. Patient remains on cefazolin for her MSSA endocarditis. Objective - Vital Signs Vital signs: Vital Signs Temp 97.9 F 11/01/20 08:00 Pulse 89 11/01/20 11:30 Resp 35 H 11/01/20 11:30 BP 86/51 11/01/20 02:00 Pulse Ox 92 L 11/01/20 11:30 Intake & Output 10/31/20 11/01/20 11/01/20 18:59 06:59 18:59 Intake Total 1473.425 9197.594 1194.273 Output Total 240 510 170 Balance 1268.000 642.115 4584.273 Weight 131.3 kg 135.1 kg Intake: IV 286 296 165 0.9 pressure bag 36 36 15 Magnesium Sulfate-D5w Pmx 200 1 gm In Dextrose/Water 1 100ml.bag @ 100 mls/hr IVPB ONCE ONE Rx#: [id number] Sodium Chloride 0.9% 1, 210 100 000 ml @ 20 mls/hr IV . Q24H [facility] Rx#:[id number] ceFAZolin 2 gm In Sodium 50 50 50 Chloride 0.9% 50 ml @ 100 mls/hr IVPB Q12HR [facility] Rx #:[id number] Intake, IV Titration 358.000 22.594 481.273 Amount Heparin Sod,Pork in 0.45% 245.867 NaCl 25,000 unit In 0.45 % NaCl 1 250ml.bag @ 9.22 UNITS/KG/HR 10.004 mls/ hr IV .Q24H [facility] Rx#: [id number] Norepinephrine 8 mg In 258.000 22.594 235.406 Sodium Chloride 0.9% 250 ml @ 0.2 MCG/KG/MIN 43. 731 mls/hr IV .Q5H54M [facility] Rx#:[id number] propofoL 1,000 mg In 100.000 Empty Bag 1 bag @ Titrate IV .Q0M [facility] Rx#: [id number] Tube Feeding 464 696 348 Other 400 400 200 Output: Urine 240 510 170 Other: Voiding Method Indwelling Catheter Indwelling Catheter Indwelling Catheter ABP, PAP, CO, CI - Last Documented Arterial Blood Pressure 114/67 - Exam Physical Exam: Revealed 75-year-old female intubated and mechanically ventilated. Sedated. However the patient will be given another trial of sedation interruption and assessment of mental status today. Head: Atraumatic, normocephalic. Endotracheal tube and orogastric tube are intact. HEENT:[Neck is supple.] [No neck masses.] [No thyromegaly.] [No JVD.] PERRLA, EOMI, nonicteric, moist mucous membranes. Chest: [Symmetrical chest expansion, rhonchi noted bilaterally.. Cardiac Exam: [Irregular irregular rhythm. Normal S1 and S2, no S3 gallop, 2/6 systolic murmur thought the precordium. Abdomen: [Soft, nontender, no megaly, no rebound, no guarding, normal bowel sounds.] Extremities: [No clubbing, 2+ bipedal edema, no cyanosis.] Diminished distal pulses bilaterally Neurological Exam: Sedated, could not assess. Psychiatric: Could not assess patient is on propofol.. Skin: Multiple areas of bruises, noted bilaterally on upper and lower extremities - Labs CBC & Chem 7: 11/01/20 04:50 11/01/20 04:50 Labs: Abnormal Lab Results - Last 24 Hours (Table) 10/31/20 10/31/20 11/01/20 Range/Units 16:07 20:59 00:00 RBC (3.80-5.40) m/uL Hgb (11.4-16.0) gm/dL Hct (34.0-46.0) % MCV (80.0-100.0) fL MCHC (31.0-37.0) g/dL RDW (11.5-15.5) % Plt Count (150-450) k/uL APTT (22.0-30.0) sec ABG pH (7.35-7.45) Chloride (98-107) mmol/L Carbon Dioxide (22-30) mmol/L BUN (7-17) mg/dL Creatinine (0.52-1.04) mg/dL Glucose (74-99) mg/dL POC Glucose (mg/dL) 121 H 103 H 113 H (75-99) mg/dL 11/01/20 11/01/20 11/01/20 Range/Units 00:16 04:50 04:50 RBC 3.10 L (3.80-5.40) m/uL Hgb 9.8 L (11.4-16.0) gm/dL Hct 32.5 L (34.0-46.0) % MCV 104.9 H (80.0-100.0) fL MCHC 30.3 L (31.0-37.0) g/dL RDW 18.6 H (11.5-15.5) % Plt Count 98 L (150-450) k/uL APTT (22.0-30.0) sec ABG pH (7.35-7.45) Chloride 110 H (98-107) mmol/L Carbon Dioxide 19 L (22-30) mmol/L BUN 72 H (7-17) mg/dL Creatinine 1.94 H (0.52-1.04) mg/dL Glucose 191 H (74-99) mg/dL POC Glucose (mg/dL) 125 H (75-99) mg/dL 11/01/20 11/01/20 11/01/20 Range/Units 04:50 04:55 05:27 RBC (3.80-5.40) m/uL Hgb (11.4-16.0) gm/dL Hct (34.0-46.0) % MCV (80.0-100.0) fL MCHC (31.0-37.0) g/dL RDW (11.5-15.5) % Plt Count (150-450) k/uL APTT 44.6 H (22.0-30.0) sec ABG pH 7.32 L (7.35-7.45) Chloride (98-107) mmol/L Carbon Dioxide (22-30) mmol/L BUN (7-17) mg/dL Creatinine (0.52-1.04) mg/dL Glucose (74-99) mg/dL POC Glucose (mg/dL) 177 H (75-99) mg/dL 11/01/20 11/01/20 Range/Units 10:13 11:38 RBC (3.80-5.40) m/uL Hgb (11.4-16.0) gm/dL Hct (34.0-46.0) % MCV (80.0-100.0) fL MCHC (31.0-37.0) g/dL RDW (11.5-15.5) % Plt Count (150-450) k/uL APTT (22.0-30.0) sec ABG pH (7.35-7.45) Chloride (98-107) mmol/L Carbon Dioxide (22-30) mmol/L BUN (7-17) mg/dL Creatinine (0.52-1.04) mg/dL Glucose (74-99) mg/dL POC Glucose (mg/dL) 205 H 224 H (75-99) mg/dL Microbiology - Last 24 Hours (Table) 10/29/20 09:54 Blood Culture - Preliminary Blood No Growth after 72 hours 10/25/20 17:46 Blood Culture - Final Blood No Growth after 144 hours 10/29/20 14:20 Catheter Tip Culture - Final Catheter Tip 10/26/20 12:15 Blood Culture - Preliminary Blood No Growth after 120 hours 10/26/20 11:55 Blood Culture - Preliminary Blood No Growth after 120 hours 10/29/20 10:30 Blood Culture - Preliminary Blood No Growth after 48 hours Assessment and Plan Assessment: Impression: Acute hypoxic respiratory failure secondary to sepsis and septic shock secondary to MSSA bacteremia secondary to endocarditis. Septic shock on presentation. Associated with hypotension although the pos sibility of cardiogenic shock is not entirely ruled out considering the patient has a very poor ejection fraction of 20-25%. Coronary artery disease and previous CABG. Bacteremia secondary to acute endocarditis. Refer to the results of the PEEP Possible non-ST elevation myocardial infarction on presentation with elevated troponin levels. Paroxysmal atrial fibrillation. History of non-small cell lung cancer stage IIIB status post chemoradiation therapy. Last PET scan was in August of 2020. Left perihilar mass is noted on chest x-ray. Bilateral pleural effusions secondary to systolic congestive heart failure, acute on chronic. Acute shock liver, resolved. Acute kidney injury secondary to acute tubular necrosis and possible cardiorenal syndrome on her initial presentation. Improved with fluid resuscitation. Acute on chronic congestive heart failure secondary to ischemic cardiomyopathy and LV dysfunction with ejection fraction of 20-25%. Thrombocytopenia, exact etiology is not clear, improving could very well be related to sepsis. Platelets today are 91,000. Failure to wean in spite of having the patient on pressure support of 14 and CPAP. We'll continue weaning trials daily. And sedation interruption daily, in the meantime we'll consult surgery for possible tracheostomy and PEG tube placement next week. 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 Recommendation: Continue ventilatory support. Multiple attempts of weaning have been tried, patient is a failure to wean. And I'm recommending tracheostomy and PEG tube placement. Consult surgery for tracheostomy and PEG tube placement, patient will be seen likely tomorrow or Monday by surgery for trach and PEG. Continue antibiotics patient is now on cefazolin for MSSA bacteremia. Continue GI and DVT prophylaxis. Continue Nutritional support, enteral feeding. It is presently up to goal. Continue heparin but continue to monitor platelets. Continue hemodynamic support with norepinephrine. Continue to monitor daily labs and x-rays. Continue Lasix at 40 mg a push daily. Continue insulin as per protocol. Continue ICU management. Patient is critically ill critical care time is over 30 minutes. Time with Patient: Greater than 30
--- NOTE | 2020-11-01 12:40 | P.PN ---
Subjective Progress Note Date: 11/01/20 No significant change since yesterday. Patient is still on vasopressors. Objective - Vital Signs Vital signs: Vital Signs Temp 97.9 F 11/01/20 08:00 Pulse 89 11/01/20 11:30 Resp 35 H 11/01/20 11:30 BP 86/51 11/01/20 02:00 Pulse Ox 92 L 11/01/20 11:30 Intake & Output 10/31/20 11/01/20 11/01/20 18:59 06:59 18:59 Intake Total 2569.742 1618.594 1194.273 Output Total 240 510 170 Balance 1268.000 976.108 3532.273 Weight 131.3 kg 135.1 kg Intake: IV 286 296 165 0.9 pressure bag 36 36 15 Magnesium Sulfate-D5w Pmx 200 1 gm In Dextrose/Water 1 100ml.bag @ 100 mls/hr IVPB ONCE ONE Rx#: [id number] Sodium Chloride 0.9% 1, 210 100 000 ml @ 20 mls/hr IV . Q24H [facility] Rx#:[id number] ceFAZolin 2 gm In Sodium 50 50 50 Chloride 0.9% 50 ml @ 100 mls/hr IVPB Q12HR [facility] Rx #:[id number] Intake, IV Titration 358.000 22.594 481.273 Amount Heparin Sod,Pork in 0.45% 245.867 NaCl 25,000 unit In 0.45 % NaCl 1 250ml.bag @ 9.22 UNITS/KG/HR 10.004 mls/ hr IV .Q24H [facility] Rx#: [id number] Norepinephrine 8 mg In 258.000 22.594 235.406 Sodium Chloride 0.9% 250 ml @ 0.2 MCG/KG/MIN 43. 731 mls/hr IV .Q5H54M [facility] Rx#:[id number] propofoL 1,000 mg In 100.000 Empty Bag 1 bag @ Titrate IV .Q0M [facility] Rx#: [id number] Tube Feeding 464 696 348 Other 400 400 200 Output: Urine 240 510 170 Other: Voiding Method Indwelling Catheter Indwelling Catheter Indwelling Catheter ABP, PAP, CO, CI - Last Documented Arterial Blood Pressure 114/67 - Exam General: The patient is sedated and intubated Eye: there is normal conjunctiva bilaterally. Neck: The neck is supple, there is no JVD. Cardiovascular: Normal S1-S2, no S3-S4, no murmurs. Respiratory: Lungs clear to auscultation bilaterally Gastrointestinal: Abdomen is soft, nontender Musculoskeletal: There is no pedal edema. Skin: Skin is warm and dry - Labs CBC & Chem 7: 11/01/20 04:50 11/01/20 04:50 Labs: Abnormal Lab Results - Last 24 Hours (Table) 10/31/20 10/31/20 11/01/20 Range/Units 16:07 20:59 00:00 RBC (3.80-5.40) m/uL Hgb (11.4-16.0) gm/dL Hct (34.0-46.0) % MCV (80.0-100.0) fL MCHC (31.0-37.0) g/dL RDW (11.5-15.5) % Plt Count (150-450) k/uL APTT (22.0-30.0) sec ABG pH (7.35-7.45) Chloride (98-107) mmol/L Carbon Dioxide (22-30) mmol/L BUN (7-17) mg/dL Creatinine (0.52-1.04) mg/dL Glucose (74-99) mg/dL POC Glucose (mg/dL) 121 H 103 H 113 H (75-99) mg/dL 11/01/20 11/01/20 11/01/20 Range/Units 00:16 04:50 04:50 RBC 3.10 L (3.80-5.40) m/uL Hgb 9.8 L (11.4-16.0) gm/dL Hct 32.5 L (34.0-46.0) % MCV 104.9 H (80.0-100.0) fL MCHC 30.3 L (31.0-37.0) g/dL RDW 18.6 H (11.5-15.5) % Plt Count 98 L (150-450) k/uL APTT (22.0-30.0) sec ABG pH (7.35-7.45) Chloride 110 H (98-107) mmol/L Carbon Dioxide 19 L (22-30) mmol/L BUN 72 H (7-17) mg/dL Creatinine 1.94 H (0.52-1.04) mg/dL Glucose 191 H (74-99) mg/dL POC Glucose (mg/dL) 125 H (75-99) mg/dL 11/01/20 11/01/20 11/01/20 Range/Units 04:50 04:55 05:27 RBC (3.80-5.40) m/uL Hgb (11.4-16.0) gm/dL Hct (34.0-46.0) % MCV (80.0-100.0) fL MCHC (31.0-37.0) g/dL RDW (11.5-15.5) % Plt Count (150-450) k/uL APTT 44.6 H (22.0-30.0) sec ABG pH 7.32 L (7.35-7.45) Chloride (98-107) mmol/L Carbon Dioxide (22-30) mmol/L BUN (7-17) mg/dL Creatinine (0.52-1.04) mg/dL Glucose (74-99) mg/dL POC Glucose (mg/dL) 177 H (75-99) mg/dL 11/01/20 11/01/20 Range/Units 10:13 11:38 RBC (3.80-5.40) m/uL Hgb (11.4-16.0) gm/dL Hct (34.0-46.0) % MCV (80.0-100.0) fL MCHC (31.0-37.0) g/dL RDW (11.5-15.5) % Plt Count (150-450) k/uL APTT (22.0-30.0) sec ABG pH (7.35-7.45) Chloride (98-107) mmol/L Carbon Dioxide (22-30) mmol/L BUN (7-17) mg/dL Creatinine (0.52-1.04) mg/dL Glucose (74-99) mg/dL POC Glucose (mg/dL) 205 H 224 H (75-99) mg/dL Microbiology - Last 24 Hours (Table) 10/29/20 10:30 Blood Culture - Preliminary Blood No Growth after 72 hours 10/29/20 09:54 Blood Culture - Preliminary Blood No Growth after 72 hours 10/25/20 17:46 Blood Culture - Final Blood No Growth after 144 hours 10/29/20 14:20 Catheter Tip Culture - Final Catheter Tip 10/26/20 12:15 Blood Culture - Preliminary Blood No Growth after 120 hours 10/26/20 11:55 Blood Culture - Preliminary Blood No Growth after 120 hours Assessment and Plan Assessment: This is a 75-year-old female with past medical history significant for left lung cancer now in remission that presented to the emergency room with fevers. Patient was evaluated in the ER and admitted to the hospital for further management of her medical problems noted below. 1. Severe sepsis with septic shock, treated with aggressive IV fluid hydration and antibiotic. Required vasopressors till 10/22 then again on 10/24. 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 Influenza, Covid-19, and C. diff screen negative 2. MSSA bacteremia, blood culture cleared on for a few days but turned back positive on 10/24. Patient has been on antibiotics since admission transitioned from cefazolin to vancomycin and cefepime and now back to cefazolin. Blood culture on 10/25 negative to date. Infectious disease following closely 3. Severe sepsis with septic shock secondary to underlying acute endocarditis 4. Acute kidney injury, oliguric. hyperkalemia: Resolved. Avoid nephrotoxins. Nephrology consulted for further evaluation. 5. Acute respiratory failure requiring sedation and mechanical intubation successfully extubated and then reintubated on 10/24 5. Metabolic acidosis secondary to above 6. Liver shock with coagulopathy secondary to hypotension. Liver enzymes trending now 7. Troponin elevation, non-thrombotic troponin leak secondary to severe sepsis. Cardiology consulted for further evaluation. Echocardiogram showed EF of 20- 25% 8. Chronic atrial fibrillation on anticoagulation with Coumadin, Currently on IV heparin will continue to monitor for thrombocytopenia 9. Chronic congestive heart failure, systolic. Lasix 40 mg daily ordered 10. History of lung cancer in remission 11. Thrombocytopenia: Probably secondary to critical illness and underlying sepsis. Platelet count stabilized. We will continue to monitor closely. 12. Type 2 diabetes, continue current dose of Levemir plus sliding scale. Today, I reviewed her medication list and lab work results Cardiology recommended conservative management and IV antibiotic for underlying endocarditis Plan for PEG tube and tracheostomy awaiting general surgery evaluation tube feeding per dietitian Overall prognosis guarded
--- NOTE | 2020-11-01 13:22 | P.PN ---
Subjective Progress Note Date: 11/01/20 Principal diagnosis: No new changes. She is unable to wean from vent. Continue Orogastric feeds. Objective - Vital Signs Vital signs: Vital Signs Temp 97.9 F 11/01/20 12:00 Pulse 72 11/01/20 12:45 Resp 26 H 11/01/20 12:45 BP 86/51 11/01/20 02:00 Pulse Ox 93 L 11/01/20 12:45 Intake & Output 10/31/20 11/01/20 11/01/20 18:59 06:59 18:59 Intake Total 0469.093 2604.594 1194.273 Output Total 240 510 170 Balance 2686.842 5709.594 1024.273 Weight 131.3 kg 135.1 kg Intake: IV 286 296 165 0.9 pressure bag 36 36 15 Magnesium Sulfate-D5w Pmx 200 1 gm In Dextrose/Water 1 100ml.bag @ 100 mls/hr IVPB ONCE ONE Rx#: [id number] Sodium Chloride 0.9% 1, 210 100 000 ml @ 20 mls/hr IV . Q24H [facility] Rx#:[id number] ceFAZolin 2 gm In Sodium 50 50 50 Chloride 0.9% 50 ml @ 100 mls/hr IVPB Q12HR [facility] Rx #:[id number] Intake, IV Titration 358.000 122.594 481.273 Amount Heparin Sod,Pork in 0.45% 245.867 NaCl 25,000 unit In 0.45 % NaCl 1 250ml.bag @ 9.22 UNITS/KG/HR 10.004 mls/ hr IV .Q24H [facility] Rx#: [id number] Norepinephrine 8 mg In 258.000 22.594 235.406 Sodium Chloride 0.9% 250 ml @ 0.2 MCG/KG/MIN 43. 731 mls/hr IV .Q5H54M [facility] Rx#:[id number] propofoL 1,000 mg In 100.000 100 Empty Bag 1 bag @ Titrate IV .Q0M [facility] Rx#: [id number] Tube Feeding 464 696 348 Other 400 400 200 Output: Urine 240 510 170 Other: Voiding Method Indwelling Catheter Indwelling Catheter Indwelling Catheter ABP, PAP, CO, CI - Last Documented Arterial Blood Pressure 100/58 - Labs CBC & Chem 7: 11/01/20 04:50 11/01/20 04:50 Labs: Abnormal Lab Results - Last 24 Hours (Table) 10/31/20 10/31/20 11/01/20 Range/Units 16:07 20:59 00:00 RBC (3.80-5.40) m/uL Hgb (11.4-16.0) gm/dL Hct (34.0-46.0) % MCV (80.0-100.0) fL MCHC (31.0-37.0) g/dL RDW (11.5-15.5) % Plt Count (150-450) k/uL APTT (22.0-30.0) sec ABG pH (7.35-7.45) Chloride (98-107) mmol/L Carbon Dioxide (22-30) mmol/L BUN (7-17) mg/dL Creatinine (0.52-1.04) mg/dL Glucose (74-99) mg/dL POC Glucose (mg/dL) 121 H 103 H 113 H (75-99) mg/dL 11/01/20 11/01/20 11/01/20 Range/Units 00:16 04:50 04:50 RBC 3.10 L (3.80-5.40) m/uL Hgb 9.8 L (11.4-16.0) gm/dL Hct 32.5 L (34.0-46.0) % MCV 104.9 H (80.0-100.0) fL MCHC 30.3 L (31.0-37.0) g/dL RDW 18.6 H (11.5-15.5) % Plt Count 98 L (150-450) k/uL APTT (22.0-30.0) sec ABG pH (7.35-7.45) Chloride 110 H (98-107) mmol/L Carbon Dioxide 19 L (22-30) mmol/L BUN 72 H (7-17) mg/dL Creatinine 1.94 H (0.52-1.04) mg/dL Glucose 191 H (74-99) mg/dL POC Glucose (mg/dL) 125 H (75-99) mg/dL 11/01/20 11/01/20 11/01/20 Range/Units 04:50 04:55 05:27 RBC (3.80-5.40) m/uL Hgb (11.4-16.0) gm/dL Hct (34.0-46.0) % MCV (80.0-100.0) fL MCHC (31.0-37.0) g/dL RDW (11.5-15.5) % Plt Count (150-450) k/uL APTT 44.6 H (22.0-30.0) sec ABG pH 7.32 L (7.35-7.45) Chloride (98-107) mmol/L Carbon Dioxide (22-30) mmol/L BUN (7-17) mg/dL Creatinine (0.52-1.04) mg/dL Glucose (74-99) mg/dL POC Glucose (mg/dL) 177 H (75-99) mg/dL 11/01/20 11/01/20 Range/Units 10:13 11:38 RBC (3.80-5.40) m/uL Hgb (11.4-16.0) gm/dL Hct (34.0-46.0) % MCV (80.0-100.0) fL MCHC (31.0-37.0) g/dL RDW (11.5-15.5) % Plt Count (150-450) k/uL APTT (22.0-30.0) sec ABG pH (7.35-7.45) Chloride (98-107) mmol/L Carbon Dioxide (22-30) mmol/L BUN (7-17) mg/dL Creatinine (0.52-1.04) mg/dL Glucose (74-99) mg/dL POC Glucose (mg/dL) 205 H 224 H (75-99) mg/dL Microbiology - Last 24 Hours (Table) 10/29/20 10:30 Blood Culture - Preliminary Blood No Growth after 72 hours 10/29/20 09:54 Blood Culture - Preliminary Blood No Growth after 72 hours 10/25/20 17:46 Blood Culture - Final Blood No Growth after 144 hours 10/29/20 14:20 Catheter Tip Culture - Final Catheter Tip 10/26/20 12:15 Blood Culture - Preliminary Blood No Growth after 120 hours 10/26/20 11:55 Blood Culture - Preliminary Blood No Growth after 120 hours
[2020-11-01 17:34] LABS: Glucose,Whole Blood 157 mg/dL (75-99)
[2020-11-01 20:37] LABS: Glucose,Whole Blood 130 mg/dL (75-99)
--- NOTE | 2020-11-01 23:04 | PN ---
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 INTERVAL HISTORY: Patient is afebrile. The patient is hemodynamically stable. FiO2 is currently stable. No significant purulent secretions through the ET or any diarrhea or any changes reported by the nursing staff. On exam, blood pressure 104/54, pulse of 90, temperature 98. He is 93% on 40% FIO2. General description is an elderly female intubated on the vent. Respiratory system: Unlabored breathing, decreased breath sounds in the bases. No wheeze. Heart: S1, S2. Regular rate and rhythm. Abdomen soft, no tenderness. Extremities: No edema of the feet. LABS: Hemoglobin is 9.1, white count 9.6, BUN of 72, creatinine 1.94. DIAGNOSTIC IMPRESSION AND PLAN: Patient with MSSA bacteremia secondary to mitral valve endocarditis in this patient and plan for possible trach and PEG. The patient is covered with cefazolin to continue while monitoring clinical course closely. Continue supportive care. MMODL / IJN: [id number] /
[2020-11-02 02:16] LABS: Glucose,Whole Blood 169 mg/dL (75-99)
[2020-11-02] MEDS: INSULIN ASPART (NovoLOG) 100 UNIT/ML VIAL SQ SCH ×6 (02:26→21:31)
[2020-11-02 05:42] LABS: ABG HCO3 20 mmol/L (21-25); ABG Oxygen Saturation 97.7 % (94-97); ABG PCO2 40 mmHg (35-45); ABG PH 7.31 (7.35-7.45); ABG PO2 93 mmHg (83-108); ABG TCO2 22 mmol/L (19-24); Allen Test Performed? Yes
[2020-11-02] MEDS: HEPARIN SODIUM 1,000 UN/ML (10ML VL) IV PRN (05:58)
[2020-11-02 06:19] LABS: Anisocytosis Slight; Basophils % (A) 1 %; Eosinophils # (A) 0.1 k/uL (0-0.7); Eosinophils % (A) 1 %; HCT 31.9 % (34.0-46.0); HGB 9.8 gm/dL (11.4-16.0); Hypochromasia Marked; Lymphocytes % (A) 12 %; MCH 31.8 pg (25.0-35.0); MCHC 30.6 g/dL (31.0-37.0); MCV 103.9 fL (80.0-100.0); Macrocytosis Moderate; Mean Platelet Volume 11.4; Monocytes # (A) 0.3 k/uL (0-1.0); Monocytes % (A) 4 %; Neutrophils # (A) 7.1 k/uL (1.3-7.7); Neutrophils % (A) 81 %; Platelet Count 118 k/uL (150-450); RBC 3.07 m/uL (3.80-5.40); RDW 19.2 % (11.5-15.5); WBC 8.7 k/uL (3.8-10.6)
[2020-11-02] MEDS: NOREPINEPHRINE 8 MG in SODIUM CHLORIDE 0.9% 250 ML IV SCH ×3 (06:44→11:45)
[2020-11-02] MEDS: MIDODRINE 5 MG TAB PO SCH ×3 (06:45→16:30)
[2020-11-02] MEDS: LEVOTHYROXINE 88 MCG TAB PO SCH (06:45)
[2020-11-02] MEDS: INSULIN DETEMIR (LEVEMIR) 100 UNIT/ML SYR SQ SCH ×2 (06:45→21:31)
[2020-11-02 06:58] LABS: Calcium 8.7 mg/dL (8.4-10.2); Potassium 5.1 mmol/L (3.5-5.1)
--- NOTE | 2020-11-02 08:01 | XR ---
EXAMINATION TYPE: XR chest 1V portable DATE OF EXAM: 11/02/2020 COMPARISON: 11/01/2020 HISTORY: Respiratory distress TECHNIQUE: Single frontal view of the chest is obtained. FINDINGS: Status post median sternotomy. Cardiac mediastinal silhouette is stable. Overlying leads. Endotracheal tube and enteric catheter are similar to prior exam.. Elevation of the left hemidiaphrag m is similar to prior exam. Scattered patchy airspace opacities and bilateral pleural effusions are s table. IMPRESSION: 1. Stable portable chest. Follow-up to resolution is recommended.
[2020-11-02] MEDS: SODIUM CHLORIDE 0.9% 1,000 ML IV SCH (09:28)
[2020-11-02] MEDS: PANTOPRAZOLE 40 MG/10 ML VIAL IVP SCH (09:38)
[2020-11-02] MEDS: CHLORHEXIDINE GLUCONATE 15 ML CUP MUCOUS MEM SCH ×2 (09:38→21:30)
--- NOTE | 2020-11-02 10:09 | P.PN ---
Subjective Progress Note Date: 11/02/20 Principal diagnosis: Respiratory failure, diabetic ketoacidosis, urinary tract infection. Reevaluated today on 10/28/20, remains intubated and mechanically ventilated. Patient is on assist control rate of 26 tidal volume 400 FiO2 30% PEEP of 5. EEG showed a pO2 of 123 pCO2 33 pH of 7.45. Remains on propofol at 10 mcg/kg/m and on norepinephrine at 0.08 mcg/kg/m. Patient is scheduled to undergo CRISTIANO today. Mostly trying to rule out endocarditis as the patient had multiple blood cultures positive for MSSA. Blood cultures in the last 2 days have been negative. Patient is now on Kefzol chest x-ray continues to show left hemidiaphragm elevation, and bilateral pleural parenchymal disease with patchy airspace disease bilaterally unchanged significantly. CBC is relatively normal WBC count is 6.6 hemoglobin is 10.7. PTT is 49.8. Electrolytes are normal BUN is 56 creatinine 1.47. Patient had issues with low urine output last night, given 500 mL of fluid bolus, urine output remains about 3 0 mL per hour, and she was given Lasix earlier today by nephrology. Not much of a change in her urine output so far. Patient was reevaluated today on 10/29/2020, remains in the ICU, intubated and mechanically ventilated. Her transesophageal echocardiogram clearly showed evid ence of mitral vegetations, and the source of her MSSA bacteremia seems to be related to ongoing endocarditis. Patient is on assist control rate of 26 tidal volume is 400 FiO2 30% PEEP of 5. She is on heparin for atrial fibrillation, rate is 120 today. She remains on norepinephrine at 0.08. She is off propofol this morning to assess whether the patient could wean, however a short trial of pressure support of 14 and CPAP clearly demonstrated that the patient is not amenable. She had very small tidal volumes and her rate went up as high as 40. I recommended that she goes back on assist control mode of mechanical ventilation. I'm also recommending tracheostomy and PEG tube placement in this patient. Her ABG today showed a pO2 of 80, pCO2 37 pH of 7.40 and this was on the vent settings as noted above. Electrolytes are normal BUN is 57 creatinine 1.38. WBC count is 7.8 hemoglobin is 10.7. Patient had negative blood cultures for the last 2 or 3 days. Remains on cefazolin. Chest x-ray continues to show significant elevated left hemidiaphragm. And haziness in the bases with small pleural effusions consistent with mild congestive heart failure underlying pneumonia is not entirely ruled out but felt to be less likely Patient was reevaluated today on 10/30/2020, remains in the ICU, intubated and mechanically ventilated. She is on assist control rate of 26 tv 400 FiO2 is 30% PEEP of 5. ABG showed a pO2 of 84 pCO2 37 pH of 7.38. Remains on propofol at 20 mcg/kg/m, she is on heparin. Patient is mostly being treated for MSSA endocarditis. And she has what seems to be some component of interstitial edema and left hemidiaphragm paralysis. Tried weaning, patient could not be weaned, hence I recommended tracheostomy PEG tube placement. She really had a PICC line placed yesterday, and cultures for in the last few days have been negative. 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 She is on enteral feeding using vital HP At 58 mL per hour. Patient is also receiving free water, 200 mL via nasogastric tube every 6 hours. I did recommend Lasix today 40 mg IV push every 12 hours, as her chest x-ray is showing some evidence of mild edema. And the patient is quite swollen and edematous. Patient continues to have a left brachial arterial line in place, and she had a left PICC line placed yesterday. Really status 10.9 hemoglobin is 11.2 PTT is 37. Reevaluated today on 10/31 2020, remains in the ICU, intubated and mechanically ventilated. Patient is on assist control rate of 26 tidal volume 400 FiO2 30% and PEEP of 5. ABG showed a pO2 of 87 pCO2 44 pH of 7.31. Patient is requiring propofol at 20 mcg/kg/m, she is requiring norepinephrine at 0.05 mcg/kg/m, she is yet to be seen by surgery for potential tracheostomy and PEG tube placement. Another attempt was made yesterday for weaning, patient did not tolerate any form of weaning, patient was given a trial of pressure support of 14 and CPAP. At any rate I believe the patient will most likely require tracheostomy and PEG tube placement. In the meantime the patient had a PICC line placed, remains on antibiotics for her endocarditis. Her creatinine jumped up to 1.75 today, and I'm cutting down the Lasix to 40 mg daily instead of twice a day. 40 mg IV push daily. Follow-up blood cultures have been negative in the last 3 days. WBC count is 10.9 hemoglobin is 9.9 electrolytes are normal BUN is 65 creatinine 1.75. Blood sugar is 242. Chest x-ray showed scattered infiltrates and left- sided pleural effusion, Patient was reevaluated today on 11/01/2020, remains in the ICU, intubated and mechanically ventilated. Patient is on assist control rate of 26 tidal volume 400 FiO2 30% PEEP of 5. ABG showed a pO2 of 86 pCO2 41 pH of 7.32. Slight increase in her creatinine is noted up to 1.94. Patient remains on norepinephrine at 0.09 mcg/kg/m, propofol at 20 mcg/kg/m. IV fluid is at 20 mL per hour. She is also on vital HP at 58 mL/h/cor. Still receiving water flushes via orogastric tube, and I cut it down to 100 mL every 6 hours sodium today is 138. Chest x-ray continues to show nonspecific interstitial edema, and elevated left hemidiaphragm. CBC today is relatively normal hemoglobin is 9.8 electrolytes are normal bicarb is 19 BUN is 72 creatinine 1.94. Patient remains on cefazolin for her MSSA endocarditis. Progress note dated 11/02/2020. 75-year-old female admitted back on October 18, with diabetic ketoacidosis, urinary tract infection, and elevated troponins. The patient was transferred to the intensive care unit on October 18. She was intubated for respiratory failure on October 19. She was extubated on October 22 and reintubated again on October 24. Echocardiogram apparently revealed mitral vegetations, and the diagnosis of endocarditis was entertained. The patient has been maintained on mechanical ventilator since October 24. Currently, she is on the volume assist control mode, rate of 26, tidal volume 400, FiO2 30%, PEEP of 5. Arterial blood gases show pO2 of 93, pCO2 40, pH is 7.3. This blood gases consistent with a mild metabolic acidosis. The patient remains on norepinephrine at 8 mcg/m, propofol at 20 mcg/kg/m, IV heparin via weightbase protocol, saline at 20 mL an hour, and vital high protein at 58 mL an hour, which is goal. Blood cultures consistent with methicillin sensitive staph aureus, and she is currently on cefazolin. Laboratory data includes a white count 8.7, hemoglobin 9.8, hematocrit 31.9, and platelet count 118,000. PTT is 41.8. Sodium 139, potassium 5.1, chlorides 109, CO2 20, anion gap 10, BUN 80, creatinine 2.16. Chest x-ray shows a properly placed endotracheal tube. There is elevation of the left hemidiaphragm. There are scattered patchy airspace opacities bilaterally. Objective - Vital Signs Vital signs: Vital Signs Temp 96.2 F L 11/02/20 04:00 Pulse 80 11/02/20 07:00 Resp 28 H 11/02/20 07:00 BP 108/84 11/02/20 07:00 Pulse Ox 94 L 11/02/20 07:00 Intake & Output 11/01/20 11/02/20 11/02/20 18:59 06:59 18:59 Intake Total 2014.896 1531.925 172.239 Output Total 580 450 40 Balance 3196.519 7405.925 132.239 Weight 134.8 kg Intake: IV 349 353 23 0.9 pressure bag 39 33 3 Sodium Chloride 0.9% 1, 260 220 20 000 ml @ 20 mls/hr IV . Q24H [facility] Rx#:[id number] ceFAZolin 2 gm In Sodium 50 100 Chloride 0.9% 50 ml @ 100 mls/hr IVPB Q12HR [facility] Rx #:[id number] Intake, IV Titration 669.896 398.925 91.239 Amount Heparin Sod,Pork in 0.45% 245.867 174.812 NaCl 25,000 unit In 0.45 % NaCl 1 250ml.bag @ 9.22 UNITS/KG/HR 10.004 mls/ hr IV .Q24H [facility] Rx#: [id number] Norepinephrine 8 mg In 369.293 124.113 0.182 Sodium Chloride 0.9% 250 ml @ 0.2 MCG/KG/MIN 43. 731 mls/hr IV .Q5H54M [facility] Rx#:[id number] propofoL 1,000 mg In 54.736 100 91.057 Empty Bag 1 bag @ Titrate IV .Q0M [facility] Rx#: [id number] Tube Feeding 696 580 58 Other 300 200 Output: Urine 580 450 40 Other: Voiding Method Indwelling Catheter Indwelling Catheter ABP, PAP, CO, CI - Last Documented Arterial Blood Pressure 106/57 - Exam Obese white female, currently, with an orally placed endotracheal tube, sedated, in no distress. HEENT examination is grossly unremarkable. Neck supple. Full range of motion. No adenopathy thyromegaly or neck vein distention. Cardiovascular examination reveals regular rhythm rate. S1-S2 normal. No S3 or S4. No discernible murmur noted. Heart sounds are distant. Heart rate 80 bpm. Lungs reveal scattered bilateral rhonchi. No distinct wheezes or crackles. Breath sounds equal bilaterally. Abdomen obese, without masses or tenderness. Sounds are noted. Extremities are intact. No cyanosis or clubbing, but the patient does have significant lower extremity edema, with diffuse anasarca. Skin is without rash or lesion. Neurologic examination cannot be adequately assessed as the patient's currently sedated. - Labs CBC & Chem 7: 11/02/20 04:45 11/02/20 04:45 Labs: Abnormal Lab Results - Last 24 Hours (Table) 11/01/20 11/01/20 11/01/20 Range/Units 10:13 11:38 17:33 RBC (3.80-5.40) m/uL Hgb (11.4-16.0) gm/dL Hct (34.0-46.0) % MCV (80.0-100.0) fL MCHC (31.0-37.0) g/dL RDW (11.5-15.5) % Plt Count (150-450) k/uL APTT (22.0-30.0) sec ABG pH (7.35-7.45) ABG HCO3 (21-25) mmol/L ABG O2 Saturation (94-97) % Chloride (98-107) mmol/L Carbon Dioxide (22-30) mmol/L BUN (7-17) mg/dL Creatinine (0.52-1.04) mg/dL Glucose (74-99) mg/dL POC Glucose (mg/dL) 205 H 224 H 157 H (75-99) mg/dL 11/01/20 11/02/20 11/02/20 Range/Units 20:35 02:15 04:45 RBC 3.07 L (3.80-5.40) m/uL Hgb 9.8 L (11.4-16.0) gm/dL Hct 31.9 L (34.0-46.0) % MCV 103.9 H (80.0-100.0) fL MCHC 30.6 L (31.0-37.0) g/dL RDW 19.2 H (11.5-15.5) % Plt Count 118 L (150-450) k/uL APTT (22.0-30.0) sec ABG pH (7.35-7.45) ABG HCO3 (21-25) mmol/L ABG O2 Saturation (94-97) % Chloride (98-107) mmol/L Carbon Dioxide (22-30) mmol/L BUN (7-17) mg/dL Creatinine (0.52-1.04) mg/dL Glucose (74-99) mg/dL POC Glucose (mg/dL) 130 H 169 H (75-99) mg/dL 11/02/20 11/02/20 11/02/20 Range/Units 04:45 04:45 05:38 RBC (3.80-5.40) m/uL Hgb (11.4-16.0) gm/dL Hct (34.0-46.0) % MCV (80.0-100.0) fL MCHC (31.0-37.0) g/dL RDW (11.5-15.5) % Plt Count (150-450) k/uL APTT 41.8 H (22.0-30.0) sec ABG pH 7.31 L (7.35-7.45) ABG HCO3 20 L (21-25) mmol/L ABG O2 Saturation 97.7 H (94-97) % Chloride 109 H (98-107) mmol/L Carbon Dioxide 20 L (22-30) mmol/L BUN 80 H (7-17) mg/dL Creatinine 2.16 H (0.52-1.04) mg/dL Glucose 156 H (74-99) mg/dL POC Glucose (mg/dL) (75-99) mg/dL Microbiology - Last 24 Hours (Table) 10/26/20 12:15 Blood Culture - Final Blood No Growth after 144 hours 10/26/20 11:55 Blood Culture - Final Blood No Growth after 144 hours 10/29/20 10:30 Blood Culture - Preliminary Blood No Growth after 72 hours 10/29/20 09:54 Blood Culture - Preliminary Blood No Growth after 72 hours Assessment and Plan Assessment: Acute hypoxemic respiratory failure secondary to sepsis and septic shock, from methicillin sensitive staph aureus bacteremia, and endocarditis. Cardiomyopathy, with an ejection fraction 20-25%. CAD, status post coronary artery bypass grafting. Methicillin sensitive staph aureus bacteremia. Possible non-ST segment elevation myocardial infarction. Paroxysmal atrial fibrillation. History of non-small cell lung cancer, stage IIIB, status post chemoradiation. Bilateral pleural effusions, secondary to systolic CHF. Acute shock liver. Acute kidney injury/ATN, secondary to cardiorenal syndrome. Thrombocytopenia. Failure to wean from mechanical ventilation. Plan: Plan dated 11/02/2020. The patient may end up having a tracheostomy performed early this week. Currently, the patient remains on norepinephrine at 8 mcg/m, propofol at 20 mcg/kg/m, and IV heparin. Blood gases show a very mild metabolic acidosis. The patient is being treated with cefazolin for her methicillin sensitive staph aureus sepsis/endocarditis. Overall prognosis remains poor. She does have stage IIIB lung cancer. We'll continue to follow make recommendations where appropriate. Time with Patient: Greater than 30
[2020-11-02] MEDS: FUROSEMIDE 100 MG in SODIUM CHLORIDE 0.9% 90 ML IV SCH ×2 (10:37→17:44)
[2020-11-02 11:43] LABS: Glucose,Whole Blood 185 mg/dL (75-99)
--- NOTE | 2020-11-02 11:57 | P.PN ---
Subjective Progress Note Date: 11/02/20 HISTORY OF PRESENT ILLNESS: This is a 75-year-old female who follows in the office with Dr. Villarreal and has a past medical history significant for hypertension, coronary artery disease with previous CABG and high risk PCI of the left main and LAD, ischemic cardiomyopathy, chronic systolic heart failure, hyperlipidemia, diabetes mellitus, and paroxysmal atrial fibrillation on anticoagulation with Coumadin. Patient is being treated for mitral valve endocarditis. She underwent CRISTIANO on 10/28/2020. Patient remains intubated in the ICU. Attempts at weaning have been unsuccessful per nursing. Plan is for possible trach/peg this week. She remains in atrial fibrillation with controlled ventricular rates. She is currently anticoagulated with IV heparin. Coumadin remains on hold secondary to possible trach and peg this week. Patient remains on vasopressor support with levophed at 0.05/mcg/kg/min. Echo revealed EF 20-25%. PHYSICAL EXAM: VITAL SIGNS: Reviewed. GENERAL: Well-developed in no acute distress. NECK: Supple. No JVD or thyromegaly LUNGS: Respirations even and unlabored. Lungs diminished bilaterally with scattered rhonchi. HEART: Regular rate and rhythm. S1 and S2 heard. Systolic murmur noted. EXTREMITIES: Normal range of motion. No clubbing or cyanosis. Peripheral pulses intact. Bilateral lower extremity edema present ASSESSMENT: Bacteremia Mitral valve endocarditis Sepsis Hypotension requiring vasopressor support Paroxysmal atrial fibrillation on anticoagulation with Coumadin Acute hypoxic respiratory failure requiring mechanical ventilation Abnormal troponin secondary to renal function and sepsis Lactic acidosis Coronary artery disease status post CABG and high risk left main PCI Chronic systolic heart failure Ischemic myopathy Hypertension Hyperlipidemia History of lung cancer PLAN: Continue antibiotics for endocarditis Continue IV heparin for anticoagulation. Possible trach/peg this week. Resume Coumadin post-procedure Continue additional cardiac medications Continue telemetry monitoring Further recommendations pending patient course Nurse practitioner note has been reviewed by physician. Signing provider agrees with the documented findings, assessment, and plan of care. Objective - Vital Signs Vital signs: Vital Signs Temp 96.2 F L 11/02/20 04:00 Pulse 80 11/02/20 07:00 Resp 28 H 11/02/20 07:00 BP 108/84 11/02/20 07:00 Pulse Ox 94 L 11/02/20 07:00 Intake & Output 11/01/20 11/02/20 11/02/20 18:59 06:59 18:59 Intake Total 2013.896 1531.925 172.239 Output Total 580 450 40 Balance 9998.539 1653.925 132.239 Weight 134.8 kg Intake: IV 349 353 23 0.9 pressure bag 39 33 3 Sodium Chloride 0.9% 1, 260 220 20 000 ml @ 20 mls/hr IV . Q24H [facility] Rx#:[id number] ceFAZolin 2 gm In Sodium 50 100 Chloride 0.9% 50 ml @ 100 mls/hr IVPB Q12HR [facility] Rx #:[id number] Intake, IV Titration 669.896 398.925 91.239 Amount Heparin Sod,Pork in 0.45% 245.867 174.812 NaCl 25,000 unit In 0.45 % NaCl 1 250ml.bag @ 9.22 UNITS/KG/HR 10.004 mls/ hr IV .Q24H [facility] Rx#: [id number] Norepinephrine 8 mg In 369.293 124.113 0.182 Sodium Chloride 0.9% 250 ml @ 0.2 MCG/KG/MIN 43. 731 mls/hr IV .Q5H54M [facility] Rx#:[id number] propofoL 1,000 mg In 54.736 100 91.057 Empty Bag 1 bag @ Titrate IV .Q0M [facility] Rx#: [id number] Tube Feeding 696 580 58 Other 300 200 Output: Urine 580 450 40 Other: Voiding Method Indwelling Catheter Indwelling Catheter ABP, PAP, CO, CI - Last Documented Arterial Blood Pressure 106/57 - Labs CBC & Chem 7: 11/02/20 04:45 11/02/20 04:45 Labs: Abnormal Lab Results - Last 24 Hours (Table) 11/01/20 11/01/20 11/01/20 Range/Units 10:13 11:38 17:33 RBC (3.80-5.40) m/uL Hgb (11.4-16.0) gm/dL Hct (34.0-46.0) % MCV (80.0-100.0) fL MCHC (31.0-37.0) g/dL RDW (11.5-15.5) % Plt Count (150-450) k/uL APTT (22.0-30.0) sec ABG pH (7.35-7.45) ABG HCO3 (21-25) mmol/L ABG O2 Saturation (94-97) % Chloride (98-107) mmol/L Carbon Dioxide (22-30) mmol/L BUN (7-17) mg/dL Creatinine (0.52-1.04) mg/dL Glucose (74-99) mg/dL POC Glucose (mg/dL) 205 H 224 H 157 H (75-99) mg/dL 11/01/20 11/02/20 11/02/20 Range/Units 20:35 02:15 04:45 RBC 3.07 L (3.80-5.40) m/uL Hgb 9.8 L (11.4-16.0) gm/dL Hct 31.9 L (34.0-46.0) % MCV 103.9 H (80.0-100.0) fL MCHC 30.6 L (31.0-37.0) g/dL RDW 19.2 H (11.5-15.5) % Plt Count 118 L (150-450) k/uL APTT (22.0-30.0) sec ABG pH (7.35-7.45) ABG HCO3 (21-25) mmol/L ABG O2 Saturation (94-97) % Chloride (98-107) mmol/L Carbon Dioxide (22-30) mmol/L BUN (7-17) mg/dL Creatinine (0.52-1.04) mg/dL Glucose (74-99) mg/dL POC Glucose (mg/dL) 130 H 169 H (75-99) mg/dL 11/02/20 11/02/20 11/02/20 Range/Units 04:45 04:45 05:38 RBC (3.80-5.40) m/uL Hgb (11.4-16.0) gm/dL Hct (34.0-46.0) % MCV (80.0-100.0) fL MCHC (31.0-37.0) g/dL RDW (11.5-15.5) % Plt Count (150-450) k/uL APTT 41.8 H (22.0-30.0) sec ABG pH 7.31 L (7.35-7.45) ABG HCO3 20 L (21-25) mmol/L ABG O2 Saturation 97.7 H (94-97) % Chloride 109 H (98-107) mmol/L Carbon Dioxide 20 L (22-30) mmol/L BUN 80 H (7-17) mg/dL Creatinine 2.16 H (0.52-1.04) mg/dL Glucose 156 H (74-99) mg/dL POC Glucose (mg/dL) (75-99) mg/dL Microbiology - Last 24 Hours (Table) 10/26/20 12:15 Blood Culture - Final Blood No Growth after 144 hours 10/26/20 11:55 Blood Culture - Final Blood No Growth after 144 hours 10/29/20 10:30 Blood Culture - Preliminary Blood No Growth after 72 hours 10/29/20 09:54 Blood Culture - Preliminary Blood No Growth after 72 hours
--- NOTE | 2020-11-02 13:04 | P.PN ---
Subjective Progress Note Date: 11/02/20 There is no significant change in the patient's clinical status Objective - Vital Signs Vital signs: Vital Signs Temp 98.1 F 11/02/20 09:00 Pulse 55 L 11/02/20 12:00 Resp 22 11/02/20 12:00 BP 89/52 11/02/20 11:00 Pulse Ox 97 11/02/20 12:00 Intake & Output 11/01/20 11/02/20 11/02/20 18:59 06:59 18:59 Intake Total 2014.896 1531.925 632.239 Output Total 580 450 270 Balance 6937.494 2518.925 362.239 Weight 134.8 kg Intake: IV 349 353 193 0.9 pressure bag 39 33 3 Sodium Chloride 0.9% 1, 260 220 140 000 ml @ 20 mls/hr IV . Q24H [facility] Rx#:[id number] ceFAZolin 2 gm In Sodium 50 100 50 Chloride 0.9% 50 ml @ 100 mls/hr IVPB Q12HR [facility] Rx #:[id number] Intake, IV Titration 669.896 398.925 91.239 Amount Heparin Sod,Pork in 0.45% 245.867 174.812 NaCl 25,000 unit In 0.45 % NaCl 1 250ml.bag @ 9.22 UNITS/KG/HR 10.004 mls/ hr IV .Q24H [facility] Rx#: [id number] Norepinephrine 8 mg In 369.293 124.113 0.182 Sodium Chloride 0.9% 250 ml @ 0.2 MCG/KG/MIN 43. 731 mls/hr IV .Q5H54M [facility] Rx#:[id number] propofoL 1,000 mg In 54.736 100 91.057 Empty Bag 1 bag @ Titrate IV .Q0M [facility] Rx#: [id number] Tube Feeding 696 580 348 Other 300 200 Output: Urine 580 450 270 Other: Voiding Method Indwelling Catheter Indwelling Catheter Indwelling Catheter ABP, PAP, CO, CI - Last Documented Arterial Blood Pressure 136/58 - Exam General: The patient is sedated and intubated Eye: there is normal conjunctiva bilaterally. Neck: The neck is supple, there is no JVD. Cardiovascular: Normal S1-S2, no S3-S4, no murmurs. Respiratory: Lungs clear to auscultation bilaterally Gastrointestinal: Abdomen is soft, nontender Musculoskeletal: There is no pedal edema. Skin: Skin is warm and dry - Labs CBC & Chem 7: 11/02/20 04:45 11/02/20 04:45 Labs: Abnormal Lab Results - Last 24 Hours (Table) 11/01/20 11/01/20 11/02/20 Range/Units 17:33 20:35 02:15 RBC (3.80-5.40) m/uL Hgb (11.4-16.0) gm/dL Hct (34.0-46.0) % MCV (80.0-100.0) fL MCHC (31.0-37.0) g/dL RDW (11.5-15.5) % Plt Count (150-450) k/uL APTT (22.0-30.0) sec ABG pH (7.35-7.45) ABG HCO3 (21-25) mmol/L ABG O2 Saturation (94-97) % Chloride (98-107) mmol/L Carbon Dioxide (22-30) mmol/L BUN (7-17) mg/dL Creatinine (0.52-1.04) mg/dL Glucose (74-99) mg/dL POC Glucose (mg/dL) 157 H 130 H 169 H (75-99) mg/dL 11/02/20 11/02/20 11/02/20 Range/Units 04:45 04:45 04:45 RBC 3.07 L (3.80-5.40) m/uL Hgb 9.8 L (11.4-16.0) gm/dL Hct 31.9 L (34.0-46.0) % MCV 103.9 H (80.0-100.0) fL MCHC 30.6 L (31.0-37.0) g/dL RDW 19.2 H (11.5-15.5) % Plt Count 118 L (150-450) k/uL APTT 41.8 H (22.0-30.0) sec ABG pH (7.35-7.45) ABG HCO3 (21-25) mmol/L ABG O2 Saturation (94-97) % Chloride 109 H (98-107) mmol/L Carbon Dioxide 20 L (22-30) mmol/L BUN 80 H (7-17) mg/dL Creatinine 2.16 H (0.52-1.04) mg/dL Glucose 156 H (74-99) mg/dL POC Glucose (mg/dL) (75-99) mg/dL 11/02/20 11/02/20 Range/Units 05:38 11:41 RBC (3.80-5.40) m/uL Hgb (11.4-16.0) gm/dL Hct (34.0-46.0) % MCV (80.0-100.0) fL MCHC (31.0-37.0) g/dL RDW (11.5-15.5) % Plt Count (150-450) k/uL APTT (22.0-30.0) sec ABG pH 7.31 L (7.35-7.45) ABG HCO3 20 L (21-25) mmol/L ABG O2 Saturation 97.7 H (94-97) % Chloride (98-107) mmol/L Carbon Dioxide (22-30) mmol/L BUN (7-17) mg/dL Creatinine (0.52-1.04) mg/dL Glucose (74-99) mg/dL POC Glucose (mg/dL) 185 H (75-99) mg/dL Microbiology - Last 24 Hours (Table) 10/29/20 10:30 Blood Culture - Preliminary Blood No Growth after 96 hours 10/29/20 09:54 Blood Culture - Preliminary Blood No Growth after 96 hours 10/26/20 12:15 Blood Culture - Final Blood No Growth after 144 hours 10/26/20 11:55 Blood Culture - Final Blood No Growth after 144 hours Assessment and Plan Assessment: This is a 75-year-old female with past medical history significant for left lung cancer now in remission that presented to the emergency room with fevers. Patient was evaluated in the ER and admitted to the hospital for further management of her medical problems noted below. 1. Severe sepsis with septic shock , treated with aggressive IV fluid hydration and antibiotic. Required vasopressors till 10/22 then again on 10/24. 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 Influenza, Covid-19, and C. diff screen negative 2. MSSA bacteremia with acute endocarditis/vegetations as above: Cardiology recommended conservative management and IV antibiotic for underlying endocarditis, blood culture cleared on 614 for a few days but turned back positive on 10/24. Patient has been on antibiotics since admission transitioned from cefazolin to vancomycin and cefepime and now back to cefazolin. Blood culture on 10/25 negative to date. Infectious disease following closely 3. Severe sepsis with septic shock secondary to underlying acute endocarditis 4. Acute kidney injury, oliguric. hyperkalemia: Resolved. Avoid nephrotoxins. Nephrology consulted for further evaluation. 5. Acute respiratory failure requiring sedation and mechanical intubation successfully extubated and then reintubated on 10/24 5. Metabolic acidosis secondary to above 6. Liver shock with coagulopathy secondary to hypotension. Liver enzymes trending now 7. Troponin elevation, non-thrombotic troponin leak secondary to severe sepsis. Cardiology consulted for further evaluation. Echocardiogram showed EF of 20- 25% 8. Chronic atrial fibrillation on anticoagulation with Coumadin, Currently on IV heparin will continue to monitor for thrombocytopenia 9. Chronic congestive heart failure, systolic. Lasix 40 mg daily ordered 10. History of lung cancer in remission 11. Thrombocytopenia: Probably secondary to critical illness and underlying sepsis. Platelet count stabilized. We will continue to monitor closely. 12. Type 2 diabetes, continue current dose of Levemir plus sliding scale. Today, I reviewed her medication list and lab work results Patient's family considering withdrawal of care tube feeding per dietitian Overall prognosis guarded
--- NOTE | 2020-11-02 13:44 | P.PN ---
Subjective Progress Note Date: 11/02/20 CHIEF COMPLAINT: Shortness of breath HISTORY OF PRESENT ILLNESS: Patient remains in the ICU on mechanical ventilation. She is unable to be weaned from the vent. She is requiring norepinephrine and propofol. She also remains on IV heparin. Her CRISTIANO had shown mitral vegetation and diagnosed she was diagnosed with endocarditis. Also has positive blood cultures. Currently afebrile. She returned on IV antibiotics. WBC is 8.7 creatinine 2.16 Patient followed closely by nephrology. PHYSICAL EXAM: VITAL SIGNS: Reviewed GENERAL: Well-developed in no acute distress. HEENT: No sclera icterus. Moist buccal mucosa. Head is atraumatic, normocephalic. Hears conversational speech. No nasal drainage. NECK: Supple without lymphadenopathy. CHEST: Non-labored respirations and equal bilateral excursions. CARDIOVASCULAR: Palpable 2+ radial pulses. ABDOMEN: Soft. Nondistended. Nontender. MUSCULOSKELETAL: No clubbing or cyanosis. NEUROLOGIC: Patient intubated and sedated SKIN: Well perfused. Good skin turgor. ASSESSMENT: 1. Acute hypoxic respiratory failure secondary to sepsis and septic shock due to MSSA bacteremia and endocarditis 2. 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 Severe protein calorie nutrition 4. Thrombocytopenia 5. Acute on chronic congestive heart failure with ischemic cardiac myopathy. EF of 5% 6. Paroxysmal atrial fibrillation currently on IV heparin 7. History of coronary artery disease and previous CABG 8. Possible non-ST elevated AL on presentation was elevated troponins 9. Acute kidney injury 10. History of non-small cell lung cancer PLAN: -Patient is unable to be weaned from the vent. She will possibly require tracheostomy and PEG tube placement. Further recommendations forthcoming when Dr. Walsh returns tomorrow -Continue ICU management -Continue supportive care Physician Eye Specialist note has been reviewed by physician. Signing provider agrees with the documented findings, assessment, and plan of care. Objective - Vital Signs Vital signs: Vital Signs Temp 98.1 F 11/02/20 09:00 Pulse 55 L 11/02/20 12:00 Resp 22 11/02/20 12:00 BP 89/52 11/02/20 11:00 Pulse Ox 97 11/02/20 12:00 Intake & Output 11/01/20 11/02/20 11/02/20 18:59 06:59 18:59 Intake Total 1531.925 632.239 Output Total 580 450 270 Balance 9955.593 8194.925 362.239 Weight 134.8 kg Intake: IV 349 353 193 0.9 pressure bag 39 33 3 Sodium Chloride 0.9% 1, 260 220 140 000 ml @ 20 mls/hr IV . Q24H [facility] Rx#:[id number] ceFAZolin 2 gm In Sodium 50 100 50 Chloride 0.9% 50 ml @ 100 mls/hr IVPB Q12HR [facility] Rx #:[id number] Intake, IV Titration 669.896 398.925 91.239 Amount Heparin Sod,Pork in 0.45% 245.867 174.812 NaCl 25,000 unit In 0.45 % NaCl 1 250ml.bag @ 9.22 UNITS/KG/HR 10.004 mls/ hr IV .Q24H [facility] Rx#: [id number] Norepinephrine 8 mg In 369.293 124.113 0.182 Sodium Chloride 0.9% 250 ml @ 0.2 MCG/KG/MIN 43. 731 mls/hr IV .Q5H54M [facility] Rx#:[id number] propofoL 1,000 mg In 54.736 100 91.057 Empty Bag 1 bag @ Titrate IV .Q0M [facility] Rx#: [id number] Tube Feeding 696 580 348 Other 300 200 Output: Urine 580 450 270 Other: Voiding Method Indwelling Catheter Indwelling Catheter Indwelling Catheter ABP, PAP, CO, CI - Last Documented Arterial Blood Pressure 136/58 - Labs CBC & Chem 7: 11/02/20 04:45 11/02/20 04:45 Labs: Abnormal Lab Results - Last 24 Hours (Table) 11/01/20 11/01/20 11/02/20 Range/Units 17:33 20:35 02:15 RBC (3.80-5.40) m/uL Hgb (11.4-16.0) gm/dL Hct (34.0-46.0) % MCV (80.0-100.0) fL MCHC (31.0-37.0) g/dL RDW (11.5-15.5) % Plt Count (150-450) k/uL APTT (22.0-30.0) sec ABG pH (7.35-7.45) ABG HCO3 (21-25) mmol/L ABG O2 Saturation (94-97) % Chloride (98-107) mmol/L Carbon Dioxide (22-30) mmol/L BUN (7-17) mg/dL Creatinine (0.52-1.04) mg/dL Glucose (74-99) mg/dL POC Glucose (mg/dL) 157 H 130 H 169 H (75-99) mg/dL 11/02/20 11/02/20 11/02/20 Range/Units 04:45 04:45 04:45 RBC 3.07 L (3.80-5.40) m/uL Hgb 9.8 L (11.4-16.0) gm/dL Hct 31.9 L (34.0-46.0) % MCV 103.9 H (80.0-100.0) fL MCHC 30.6 L (31.0-37.0) g/dL RDW 19.2 H (11.5-15.5) % Plt Count 118 L (150-450) k/uL APTT 41.8 H (22.0-30.0) sec ABG pH (7.35-7.45) ABG HCO3 (21-25) mmol/L ABG O2 Saturation (94-97) % Chloride 109 H (98-107) mmol/L Carbon Dioxide 20 L (22-30) mmol/L BUN 80 H (7-17) mg/dL Creatinine 2.16 H (0.52-1.04) mg/dL Glucose 156 H (74-99) mg/dL POC Glucose (mg/dL) (75-99) mg/dL 11/02/20 11/02/20 Range/Units 05:38 11:41 RBC (3.80-5.40) m/uL Hgb (11.4-16.0) gm/dL Hct (34.0-46.0) % MCV (80.0-100.0) fL MCHC (31.0-37.0) g/dL RDW (11.5-15.5) % Plt Count (150-450) k/uL APTT (22.0-30.0) sec ABG pH 7.31 L (7.35-7.45) ABG HCO3 20 L (21-25) mmol/L ABG O2 Saturation 97.7 H (94-97) % Chloride (98-107) mmol/L Carbon Dioxide (22-30) mmol/L BUN (7-17) mg/dL Creatinine (0.52-1.04) mg/dL Glucose (74-99) mg/dL POC Glucose (mg/dL) 185 H (75-99) mg/dL Microbiology - Last 24 Hours (Table) 10/29/20 10:30 Blood Culture - Preliminary Blood No Growth after 96 hours 10/29/20 09:54 Blood Culture - Preliminary Blood No Growth after 96 hours 10/26/20 12:15 Blood Culture - Final Blood No Growth after 144 hours 10/26/20 11:55 Blood Culture - Final Blood No Growth after 144 hours
--- NOTE | 2020-11-02 15:02 | PN ---
PROGRESS NOTE DATE OF SERVICE: 11/02/2020. 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 INTERVAL HISTORY: The patient is afebrile. The patient remains to be intubated on the vent . The patient is hemodynamically stable not on pressor support. FiO2 is currently 30%. No significant purulent secretions through the ET or diarrhea reported by the nursing staff. EXAMINATION: Blood pressure 106/40 with a pulse of 59, temperature 98.1. She is 94 percent on 30% FIO2. General description is an elderly female lying in bed in no distress. Respiratory system: Unlabored breathing with decreased breath sounds in the bases. No wheeze. Heart S1, S2. Regular rate and rhythm. Abdomen: Soft. No tenderness. LABORATORY DATA: Blood culture repeat has been negative. Hemoglobin 9.1, white count 8.5. BUN of 8 and creatinine 2.16. DIAGNOSTIC IMPRESSION AND PLAN: Patient with MSSA bacteremia secondary to mitral valve endocarditis. Patient has cleared her bacteremia. However, the patient failed to be extubated and the family leaning more towards hospice instead of trach and PEG. Family at the bedside. Their questions and concerns were answered. MMODL / IJN: [id number] /
[2020-11-02] MEDS: HEPARIN SOD,PORK IN 0.45% NACL 25,000 UNIT in 0.45% NACL 1 250ML.BAG IV SCH (15:43)
[2020-11-02 16:28] LABS: Glucose,Whole Blood 172 mg/dL (75-99)
--- NOTE | 2020-11-02 16:49 | PN ---
PROGRESS NOTE Patient is seen for followup for acute kidney injury on top of chronic kidney disease. Patient's renal function has been slowly worsening over the last few days. Urine output had been borderline. Patient received 60 mg of IV push Lasix 1 time yesterday with no significant improvement in urine output. Her ejection fraction has been 20- 25%. The patient has underlying mitral valve endocarditis with MSSA bacteremia. Last blood cultures were negative as of 10/25 and 10/26/2020. The patient is volume overloaded. PHYSICAL EXAMINATION: On examination today, she is sedated. She is on the vent. Blood pressure 108/48, heart rate 58 per minute, she is afebrile. Examination of the heart S1, S2. Examination of the lungs, bilateral breath sounds are heard. Abdomen is soft, obese. Exam of lower extremities with edema 2+ bilaterally upper and lower extremities. BRAND [employer]ATEGY MANAGER exam cannot be performed. LAB: Show sodium 139, potassium 5.1, chloride 109, CO2 is 20, BUN 80, creatinine 2.16, hemoglobin 9.8 g/dL. ASSESSMENT: 1. Acute kidney injury, acute tubular necrosis, currently nonoliguric, although urine output is borderline. The patient is also volume overloaded. I will start a Lasix drip and we will also add dobutamine. If she does not respond and diurese patient will need renal replacement therapy. 2. Acute hypoxic respiratory failure secondary to sepsis. 3. MSSA bacteremia related to mitral valve endocarditis. 4. Cardiomyopathy, ejection fraction 20-25%. 5. Hypernatremia, now resolved. PLAN: Add Lasix drip, add dobutamine if cleared by Cardiology. If no improvement, patient will need renal replacement therapy. Continue with the midodrine. The patient is also needing a low-dose Levophed which we can continue for now. MMODL / IJN: [id number] /
[2020-11-02 20:35] LABS: Glucose,Whole Blood 151 mg/dL (75-99)
[2020-11-02 23:50] LABS: Glucose,Whole Blood 137 mg/dL (75-99)
[2020-11-03] MEDS: NOREPINEPHRINE 8 MG in SODIUM CHLORIDE 0.9% 250 ML IV SCH ×3 (00:58→06:15)
[2020-11-03] MEDS: INSULIN ASPART (NovoLOG) 100 UNIT/ML VIAL SQ SCH ×2 (01:00→04:30)
[2020-11-03 04:05] LABS: Glucose,Whole Blood 95 mg/dL (75-99)
[2020-11-03 04:43] LABS: ABG Base Excess -4.7 mmol/L; ABG HCO3 20 mmol/L (21-25); ABG Oxygen Saturation 98.9 % (94-97); ABG PCO2 32 mmHg (35-45); ABG PO2 108 mmHg (83-108); ABG TCO2 21 mmol/L (19-24); Allen Test Performed? Yes
[2020-11-03 06:15] VITALS: TEMP 96
--- NOTE | 2020-11-03 06:45 | P.PN ---
Subjective Progress Note Date: 11/03/20 Principal diagnosis: Respiratory failure, diabetic ketoacidosis, urinary tract infection. Reevaluated today on 10/28/20, remains intubated and mechanically ventilated. Patient is on assist control rate of 26 tidal volume 400 FiO2 30% PEEP of 5. EEG showed a pO2 of 123 pCO2 33 pH of 7.45. Remains on propofol at 10 mcg/kg/m and on norepinephrine at 0.08 mcg/kg/m. Patient is scheduled to undergo CRISTIANO today. Mostly trying to rule out endocarditis as the patient had multiple blood cultures positive for MSSA. Blood cultures in the last 2 days have been negative. Patient is now on Kefzol chest x-ray continues to show left hemidiaphragm elevation, and bilateral pleural parenchymal disease with patchy airspace disease bilaterally unchanged significantly. CBC is relatively normal WBC count is 6.6 hemoglobin is 10.7. PTT is 49.8. Electrolytes are normal BUN is 56 creatinine 1.47. Patient had issues with low urine output last night, given 500 mL of fluid bolus, urine output remains about 3 0 mL per hour, and she was given Lasix earlier today by nephrology. Not much of a change in her urine output so far. Patient was reevaluated today on 10/29/2020, remains in the ICU, intubated and mechanically ventilated. Her transesophageal echocardiogram clearly showed evid ence of mitral vegetations, and the source of her MSSA bacteremia seems to be related to ongoing endocarditis. Patient is on assist control rate of 26 tidal volume is 400 FiO2 30% PEEP of 5. She is on heparin for atrial fibrillation, rate is 120 today. She remains on norepinephrine at 0.08. She is off propofol this morning to assess whether the patient could wean, however a short trial of pressure support of 14 and CPAP clearly demonstrated that the patient is not amenable. She had very small tidal volumes and her rate went up as high as 40. I recommended that she goes back on assist control mode of mechanical ventilation. I'm also recommending tracheostomy and PEG tube placement in this patient. Her ABG today showed a pO2 of 80, pCO2 37 pH of 7.40 and this was on the vent settings as noted above. Electrolytes are normal BUN is 57 creatinine 1.38. WBC count is 7.8 hemoglobin is 10.7. Patient had negative blood cultures for the last 2 or 3 days. Remains on cefazolin. Chest x-ray continues to show significant elevated left hemidiaphragm. And haziness in the bases with small pleural effusions consistent with mild congestive heart failure underlying pneumonia is not entirely ruled out but felt to be less likely Patient was reevaluated today on 10/30/2020, remains in the ICU, intubated and mechanically ventilated. She is on assist control rate of 26 tv 400 FiO2 is 30% PEEP of 5. ABG showed a pO2 of 84 pCO2 37 pH of 7.38. Remains on propofol at 20 mcg/kg/m, she is on heparin. Patient is mostly being treated for MSSA endocarditis. And she has what seems to be some component of interstitial edema and left hemidiaphragm paralysis. Tried weaning, patient could not be weaned, hence I recommended tracheostomy PEG tube placement. She really had a PICC line placed yesterday, and cultures for in the last few days have been negative. 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 She is on enteral feeding using vital HP At 58 mL per hour. Patient is also receiving free water, 200 mL via nasogastric tube every 6 hours. I did recommend Lasix today 40 mg IV push every 12 hours, as her chest x-ray is showing some evidence of mild edema. And the patient is quite swollen and edematous. Patient continues to have a left brachial arterial line in place, and she had a left PICC line placed yesterday. Really status 10.9 hemoglobin is 11.2 PTT is 37. Reevaluated today on 10/31 2020, remains in the ICU, intubated and mechanically ventilated. Patient is on assist control rate of 26 tidal volume 400 FiO2 30% and PEEP of 5. ABG showed a pO2 of 87 pCO2 44 pH of 7.31. Patient is requiring propofol at 20 mcg/kg/m, she is requiring norepinephrine at 0.05 mcg/kg/m, she is yet to be seen by surgery for potential tracheostomy and PEG tube placement. Another attempt was made yesterday for weaning, patient did not tolerate any form of weaning, patient was given a trial of pressure support of 14 and CPAP. At any rate I believe the patient will most likely require tracheostomy and PEG tube placement. In the meantime the patient had a PICC line placed, remains on antibiotics for her endocarditis. Her creatinine jumped up to 1.75 today, and I'm cutting down the Lasix to 40 mg daily instead of twice a day. 40 mg IV push daily. Follow-up blood cultures have been negative in the last 3 days. WBC count is 10.9 hemoglobin is 9.9 electrolytes are normal BUN is 65 creatinine 1.75. Blood sugar is 242. Chest x-ray showed scattered infiltrates and left- sided pleural effusion, Patient was reevaluated today on 11/01/2020, remains in the ICU, intubated and mechanically ventilated. Patient is on assist control rate of 26 tidal volume 400 FiO2 30% PEEP of 5. ABG showed a pO2 of 86 pCO2 41 pH of 7.32. Slight increase in her creatinine is noted up to 1.94. Patient remains on norepinephrine at 0.09 mcg/kg/m, propofol at 20 mcg/kg/m. IV fluid is at 20 mL per hour. She is also on vital HP at 58 mL/h/cor. Still receiving water flushes via orogastric tube, and I cut it down to 100 mL every 6 hours sodium today is 138. Chest x-ray continues to show nonspecific interstitial edema, and elevated left hemidiaphragm. CBC today is relatively normal hemoglobin is 9.8 electrolytes are normal bicarb is 19 BUN is 72 creatinine 1.94. Patient remains on cefazolin for her MSSA endocarditis. Progress note dated 11/02/2020. 75-year-old female admitted back on October 18, with diabetic ketoacidosis, urinary tract infection, and elevated troponins. The patient was transferred to the intensive care unit on October 18. She was intubated for respiratory failure on October 19. She was extubated on October 22 and reintubated again on October 24. Echocardiogram apparently revealed mitral vegetations, and the diagnosis of endocarditis was entertained. The patient has been maintained on mechanical ventilator since October 24. Currently, she is on the volume assist control mode, rate of 26, tidal volume 400, FiO2 30%, PEEP of 5. Arterial blood gases show pO2 of 93, pCO2 40, pH is 7.3. This blood gases consistent with a mild metabolic acidosis. The patient remains on norepinephrine at 8 mcg/m, propofol at 20 mcg/kg/m, IV heparin via weightbase protocol, saline at 20 mL an hour, and vital high protein at 58 mL an hour, which is goal. Blood cultures consistent with methicillin sensitive staph aureus, and she is currently on cefazolin. Laboratory data includes a white count 8.7, hemoglobin 9.8, hematocrit 31.9, and platelet count 118,000. PTT is 41.8. Sodium 139, potassium 5.1, chlorides 109, CO2 20, anion gap 10, BUN 80, creatinine 2.16. Chest x-ray shows a properly placed endotracheal tube. There is elevation of the left hemidiaphragm. There are scattered patchy airspace opacities bilaterally. Progress note dated 11/03/2020. 75-year-old female, admitted back on October 18, with diabetic ketoacidosis, urinary tract infection, and elevated troponins. The patient was transferred to the ICU on October 18. The patient was intubated for respiratory failure on October 19, and was extubated on October 22. Unfortunately, she was reintubated on October 24. She remains on mechanical ventilator. Yesterday, her family made her a DO NOT RESUSCITATE. Apparently the plan today is to go to comfort measures. Currently, she is on the volume assist control mode, rate 26, tidal volume 400, FiO2 30%, and a PEEP of 5. I asked the nurses not to do a blood gas. The patient's on norepinephrine at 8.1 mcg/m, propofol at 20 mcg/kg/m, heparin via weightbase protocol, and Lasix drip at 10 mg an hour. I told the nurse is to stop the heparin and the Lasix. No chest x-ray today. Lab data today includes a PTT of 61.4, and a blood gas showing a pO2 of 108, a PaCO2 of 32 and a pH of 7.40. Objective - Vital Signs Vital signs: Vital Signs Temp 96 F L 11/03/20 04:00 Pulse 58 L 11/03/20 06:00 Resp 26 H 11/03/20 06:00 BP 92/63 11/03/20 06:00 Pulse Ox 97 11/03/20 06:00 Intake & Output 11/02/20 11/02/20 11/03/20 06:59 18:59 06:59 Intake Total 3371.118 3807.063 340 Output Total 674 714 0366 Balance 1081.925 246.063 -1190 Weight 134.8 kg Intake: IV 353 273 340 0.9 pressure bag 33 3 40 Sodium Chloride 0.9% 1, 220 220 300 000 ml @ 20 mls/hr IV . Q24H [facility] Rx#:[id number] ceFAZolin 2 gm In Sodium 100 50 Chloride 0.9% 50 ml @ 100 mls/hr IVPB Q12HR [facility] Rx #:[id number] Intake, IV Titration 398.925 420.063 Amount Furosemide 100 mg In 71.167 Sodium Chloride 0.9% 90 ml @ 10 MG/HR 10 mls/hr IV .Q10H [facility] Rx#: [id number] Heparin Sod,Pork in 0.45% 174.812 75.188 NaCl 25,000 unit In 0.45 % NaCl 1 250ml.bag @ 9.22 UNITS/KG/HR 10.004 mls/ hr IV .Q24H [facility] Rx#: [id number] Norepinephrine 8 mg In 124.113 82.651 Sodium Chloride 0.9% 250 ml @ 0.2 MCG/KG/MIN 43. 731 mls/hr IV .Q5H54M [facility] Rx#:[id number] propofoL 1,000 mg In 100 191.057 Empty Bag 1 bag @ Titrate IV .Q0M [facility] Rx#: [id number] Tube Feeding 580 348 Other 200 Output: Urine 707 192 6558 Other: Voiding Method Indwelling Catheter Indwelling Catheter Indwelling Catheter ABP, PAP, CO, CI - Last Documented Arterial Blood Pressure 140/51 - Exam Obese white female, currently, with an orally placed endotracheal tube, sedated, in no distress. HEENT examination is grossly unremarkable. Neck supple. Full range of motion. No adenopathy thyromegaly or neck vein distention. Cardiovascular examination reveals regular rhythm rate. S1-S2 normal. No S3 or S4. No discernible murmur noted. Heart sounds are distant. Heart rate 58 bpm. Lungs reveal scattered bilateral rhonchi. No distinct wheezes or crackles. Breath sounds equal bilaterally. Abdomen obese, without masses or tenderness. Sounds are noted. Extremities are intact. No cyanosis or clubbing, but the patient does have significant lower extremity edema, with diffuse anasarca. Skin is without rash or lesion. Neurologic examination cannot be adequately assessed as the patient's currently sedated. - Labs CBC & Chem 7: 11/02/20 04:45 11/02/20 04:45 Labs: Abnormal Lab Results - Last 24 Hours (Table) 0611/02/20 11/02/20 Range/Units 04:45 11:41 15:55 APTT 52.5 H (22.0-30.0) sec ABG pCO2 (35-45) mmHg ABG HCO3 (21-25) mmol/L ABG O2 Saturation (94-97) % Chloride 109 H (98-107) mmol/L Carbon Dioxide 20 L (22-30) mmol/L BUN 80 H (7-17) mg/dL Creatinine 2.16 H (0.52-1.04) mg/dL Glucose 156 H (74-99) mg/dL POC Glucose (mg/dL) 185 H (75-99) mg/dL 11/02/20 11/02/20 11/02/20 Range/Units 16:26 20:33 23:48 APTT (22.0-30.0) sec ABG pCO2 (35-45) mmHg ABG HCO3 (21-25) mmol/L ABG O2 Saturation (94-97) % Chloride (98-107) mmol/L Carbon Dioxide (22-30) mmol/L BUN (7-17) mg/dL Creatinine (0.52-1.04) mg/dL Glucose (74-99) mg/dL POC Glucose (mg/dL) 172 H 151 H 137 H (75-99) mg/dL 11/03/20 11/03/20 Range/Units 04:10 04:40 APTT 61.4 H (22.0-30.0) sec ABG pCO2 32 L (35-45) mmHg ABG HCO3 20 L (21-25) mmol/L ABG O2 Saturation 98.9 H (94-97) % Chloride (98-107) mmol/L Carbon Dioxide (22-30) mmol/L BUN (7-17) mg/dL Creatinine (0.52-1.04) mg/dL Glucose (74-99) mg/dL POC Glucose (mg/dL) (75-99) mg/dL Microbiology - Last 24 Hours (Table) 10/29/20 10:30 Blood Culture - Preliminary Blood No Growth after 96 hours 10/29/20 09:54 Blood Culture - Preliminary Blood No Growth after 96 hours Assessment and Plan Assessment: Acute hypoxemic respiratory failure secondary to sepsis and septic shock, from methicillin sensitive staph aureus bacteremia, and endocarditis. Cardiomyopathy, with an ejection fraction 20-25%. CAD, status post coronary artery bypass grafting. Methicillin sensitive staph aureus bacteremia. Possible non-ST segment elevation myocardial infarction. Paroxysmal atrial fibrillation. History of non-small cell lung cancer, stage IIIB, status post chemoradiation. Bilateral pleural effusions, secondary to systolic CHF. Acute shock liver. Acute kidney injury/ATN, secondary to cardiorenal syndrome. Thrombocytopenia. Failure to wean from mechanical ventilation. Plan: Plan dated 11/02/2020. The patient may end up having a tracheostomy performed early this week. Currently, the patient remains on norepinephrine at 8 mcg/m, propofol at 20 mcg/kg/m, and IV heparin. Blood gases show a very mild metabolic acidosis. The patient is being treated with cefazolin for her methicillin sensitive staph aureus sepsis/endocarditis. Overall prognosis remains poor. She does have stage IIIB lung cancer. We'll continue to follow make recommendations where ap propriate. Plan dated 11/03/2020. Currently, the patient remains on mechanical ventilator. She was made a DO NOT RESUSCITATE yesterday. She remains on norepinephrine at 8.1 mcg/m, propofol at 20 mcg/kg/m, heparin via weightbase protocol, and Lasix drip at 10 mg an hour. The family may decide to make the patient a comfort measures patient today. Apparently they were talking about that yesterday. She remains on mechanical ventilator. A blood gas was done. It was reviewed. Medications are reviewed. Additional recommendations and suggestions are forthcoming. Overall prognosis remains very poor. We will continue to follow and make additional recommendations where appropriate. Time with Patient: Greater than 30
[2020-11-03 08:24] VITALS: BP 93/57; PULSE 67; RESP 27
[2020-11-03] MEDS ORDERED: MORPHINE SULFATE 4 MG/ML SYRINGE IV PRN (09:19)
[2020-11-03] MEDS ORDERED: GLYCOPYRROLATE 0.2 MG/ML 2 ML VIAL IVP PRN (09:19)
[2020-11-03] MEDS ORDERED: MORPHINE SULFATE (100 MG/2 ML) 100 MG in SODIUM CHLORIDE 0.9% 100 ML IV SCH (09:30)
[2020-11-03] MEDS: SODIUM CHLORIDE 0.9% 1,000 ML IV SCH (10:06)
[2020-11-03] MEDS: FUROSEMIDE 100 MG in SODIUM CHLORIDE 0.9% 90 ML IV SCH (10:06)
--- NOTE | 2020-11-03 12:23 | P.DS ---
Providers Date of admission: 10/18/20 09:26 Expected date of discharge: 11/03/20 Attending physician: Nicola Boogie MD Consults: 10/18/20 16:54 Consult Physician Routine Consulting Provider: Gael Ernst Consult Reason/Comments: acute hypoxic respiratory failure Do you want consulting provider notified?: Yes 10/19/20 07:27 Consult Physician Routine Consulting Provider: Cassia Casillas Consult Reason/Comments: bacteremia sepsis Do you want consulting provider notified?: Yes 10/19/20 09:57 Consult Physician Routine Consulting Provider: Miriam Sands Consult Reason/Comments: CARSON/low urine output Do you want consulting provider notified?: Yes 10/29/20 09:32 Consult Physician Routine Consulting Provider: Alvaro Walsh Consult Reason/Comments: Tracheostomy and PEG tube placement Do you want consulting provider notified?: Yes Primary care physician: Everton Benjamin MD Hospital Course: This is a 75-year-old female with past medical history significant for left lung cancer now in remission that presented to the emergency room with fevers. Patient was evaluated in the ER and admitted to the hospital for further management of her medical problems noted below. Patient had a prolonged and complicated hospital course. Her overall prognosis was very poor. Family members eventually decided to pursue comfort measures and withdrawal of care. This happened in the ICU on 11/03/2020. For the exact time of is referred to nursing staff documentation. Below is a list of her medical problems addressed during this hospitalization. 1. Severe sepsis with septic shock , treated with aggressive IV fluid hydration and antibiotic. Required vasopressors till 10/22 then again on 10/24. 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 Influenza, Covid-19, and C. diff screen negative 2. MSSA bacteremia with acute endocarditis/vegetations as above: Cardiology recommended conservative management and IV antibiotic for underlying endocarditis, blood culture cleared on 4 for a few days but turned back positive on 10/24. Patient has been on antibiotics since admission transitioned from cefazolin to vancomycin and cefepime and now back to cefazolin. Blood culture on 10/25 negative to date. Infectious disease following closely 3. Severe sepsis with septic shock secondary to underlying acute endocarditis 4. Acute kidney injury, oliguric. hyperkalemia: Resolved. Avoid nephrotoxins. Nephrology consulted for further evaluation. 5. Acute respiratory failure requiring sedation and mechanical intubation suc cessfully extubated and then reintubated on 10/24 5. Metabolic acidosis secondary to above 6. Liver shock with coagulopathy secondary to hypotension. Liver enzymes trending now 7. Troponin elevation, non-thrombotic troponin leak secondary to severe sepsis. Cardiology consulted for further evaluation. Echocardiogram showed EF of 20- 25% 8. Chronic atrial fibrillation on anticoagulation with Coumadin 9. Chronic congestive heart failure, systolic. 10. History of lung cancer in remission 11. Thrombocytopenia: Probably secondary to critical illness and underlying sepsis. Platelet count stabilized. 12. Type 2 diabetes, Patient Condition at Discharge: Fair Plan - Discharge Summary Discharge Rx Participant: No New Discharge Prescriptions: No Action Levothyroxine Sodium [Synthroid] 175 mcg PO DAILY Atorvastatin [Lipitor] 40 mg PO DAILY Insulin NPH Human Isophane [NovoLIN N] 16 units SQ HS Insulin Regular, Human [NovoLIN R] See Protocol SQ AC-TID Insulin NPH Human Isophane [NovoLIN N] 14 units SQ DAILY Warfarin [Coumadin] 2.5 mg PO [id number] Spironolactone 12.5 mg PO DAILY Furosemide [Lasix] 20 mg PO DAILY PRN PRN Reason: Edema Nitroglycerin Sl Tabs [Nitrostat] 0.4 mg SL Q5M PRN PRN Reason: Chest Pain Ergocalciferol [Vitamin D2 (1250 Mcg = 01813 Iu)] 1,250 mcg PO ESQUEDA Clopidogrel [Plavix] 75 mg PO DAILY Metoprolol Succinate (ER) [Toprol Xl] 100 mg PO DAILY Losartan Potassium 100 mg PO DAILY Isosorbide Mononitrate ER [Imdur] 30 mg PO DAILY Discharge Medication List Atorvastatin [Lipitor] 40 mg PO DAILY 03/09/19 [History] Levothyroxine Sodium [Synthroid] 175 mcg PO DAILY 03/09/19 [History] Furosemide [Lasix] 20 mg PO DAILY PRN 06/17/19 [History] Insulin NPH Human Isophane [NovoLIN N] 14 units SQ DAILY 06/17/19 [History] Insulin NPH Human Isophane [NovoLIN N] 16 units SQ HS 06/17/19 [History] Insulin Regular, Human [NovoLIN R] See Protocol SQ AC-TID 06/17/19 [History] Spironolactone 12.5 mg PO DAILY 06/17/19 [History] Warfarin [Coumadin] 2.5 mg PO [id number] 06/17/19 [History] Clopidogrel [Plavix] 75 mg PO DAILY 10/18/20 [History] Ergocalciferol [Vitamin D2 (1250 Mcg = 89597 Iu)] 1,250 mcg PO ESQUEDA 10/18/20 [History] Isosorbide Mononitrate ER [Imdur] 30 mg PO DAILY 10/18/20 [History] Losartan Potassium 100 mg PO DAILY 10/18/20 [History] Metoprolol Succinate (ER) [Toprol Xl] 100 mg PO DAILY 10/18/20 [History] Nitroglycerin Sl Tabs [Nitrostat] 0.4 mg SL Q5M PRN 10/18/20 [History] Follow up Appointment(s)/Referral(s): Ana Laura Villarreal MD [STAFF PHYSICIAN] - 2 Weeks Everton Benjamin MD [Primary Care Provider] - 1-2 days
[2020-11-03 12:55] LABS: Hepatitis B Surface AB- Quant <3.5 mIU/mL; Hepatitis B Surface Antibody Non-Reactive (Non-Reactive); Hepatitis B Surface Antigen Non-Reactive (Non-Reactive)
== END 2020-11-03 12:35 | disposition expired | DRG 870 ==
LOC: EC 06:32 → 3SCARD 09:26 → 2SICU 16:57
PROVIDERS: ADMIT Internal Medicine; ATTEND Internal Medicine
DX: A41.01 Sepsis due to Methicillin susceptible Staphylococcus aureus (principal); E11.10 Type 2 diabetes mellitus with ketoacidosis without coma; I21.A1 Myocardial infarction type 2; I33.0 Acute and subacute infective endocarditis; I50.43 Acute on chronic combined systolic (congestive) and diastolic (congestive) heart failure; J96.01 Acute respiratory failure with hypoxia; K72.00 Acute and subacute hepatic failure without coma; N17.0 Acute kidney failure with tubular necrosis; R65.21 Severe sepsis with septic shock; D68.9 Coagulation defect, unspecified; Z68.43 Body mass index [BMI] 50.0-59.9, adult; E87.0 Hyperosmolality and hypernatremia; E87.1 Hypo-osmolality and hyponatremia; E87.3 Alkalosis; I13.0 Hypertensive heart and chronic kidney disease with heart failure and stage 1 through stage 4 chronic kidney disease, or unspecified chronic kidney disease; I48.19 Other persistent atrial fibrillation; N39.0 Urinary tract infection, site not specified; I27.20 Pulmonary hypertension, unspecified; Z79.4 Long term (current) use of insulin; E11.22 Type 2 diabetes mellitus with diabetic chronic kidney disease; Z66 Do not resuscitate; Z51.5 Encounter for palliative care; Z20.822 Contact with and (suspected) exposure to COVID-19; J98.6 Disorders of diaphragm; D69.59 Other secondary thrombocytopenia; E78.5 Hyperlipidemia, unspecified; E83.42 Hypomagnesemia; E87.5 Hyperkalemia; E87.6 Hypokalemia; E03.9 Hypothyroidism, unspecified; E66.9 Obesity, unspecified; I25.10 Atherosclerotic heart disease of native coronary artery without angina pectoris; I25.2 Old myocardial infarction; I25.5 Ischemic cardiomyopathy; I49.3 Ventricular premature depolarization; J45.909 Unspecified asthma, uncomplicated; N18.9 Chronic kidney disease, unspecified; M15.9 Polyosteoarthritis, unspecified; M54.5 Low back pain; I08.3 Combined rheumatic disorders of mitral, aortic and tricuspid valves; G89.29 Other chronic pain; T45.515A Adverse effect of anticoagulants, initial encounter; Z79.01 Long term (current) use of anticoagulants; Z79.02 Long term (current) use of antithrombotics/antiplatelets; Z79.890 Hormone replacement therapy; Z79.899 Other long term (current) drug therapy; Z85.118 Personal history of other malignant neoplasm of bronchus and lung; Z87.09 Personal history of other diseases of the respiratory system; Z87.891 Personal history of nicotine dependence; Z88.0 Allergy status to penicillin; Z92.21 Personal history of antineoplastic chemotherapy; Z92.3 Personal history of irradiation; Z95.1 Presence of aortocoronary bypass graft; Z95.5 Presence of coronary angioplasty implant and graft; Z90.89 Acquired absence of other organs; Z98.890 Other specified postprocedural states; Z90.49 Acquired absence of other specified parts of digestive tract; Z83.6 Family history of other diseases of the respiratory system; Z71.3 Dietary counseling and surveillance; Z80.42 Family history of malignant neoplasm of prostate
CPT/HCPCS: 36415; 36573; 36600; 71045; 71046; 74176; 80048; 80051; 80053; 80061; 80202; 81001; 82009; 82533; 82550; 82803; 82805; 83036; 83605; 83735; 83880; 84100; 84132; 84145; 84443; 84484; 85025; 85027; 85384; 85610; 85730; 86706; 87040; 87070; 87077; 87086; 87186; 87205; 87324; 87340; 87635; 87636; 93005; 93306; 93312; 93320; 93325; 94002; 94003; 94660; 96360; 99285